=== PATIENT | female | born 1985 | race Caucasian/White ===

== ENCOUNTER → 2017-12-23 13:05 | Outpatient (CLI) | payer BC, OTHER, SELFPAY ==
[2017-09-29 13:07] VITALS: BMI 36.4
--- NOTE | 2017-12-23 13:07 | ECHOD_ITS ---
Reason For Study: NEOPLASM Procedure This was a 2D Doppler, Color Flow transthoracic echocardiogram. Technically limited exam. Pt was unable to tolerate probe due to severe pain from incision. Exam performed in department. Left Ventricle Normal LV size. Left ventricular systolic function is normal. The estimated ejection fraction is 60 %. No regional wall motion abnormalities noted. Right Ventricle Normal RV size. Normal systolic function. Atria Normal left atrium. Normal right atrium. Mitral Valve Normal mitral valve. Tricuspid Valve Normal tricuspid valve. Aortic Valve Trisinus/trileaflet aortic valve. Pulmonic Valve The pulmonic valve is not well visualized. Great Vessels Normal aortic root. The pulmonary artery is normal size. Normal inferior vena cava. Pericardium/Pleural No pericardial effusion. MMode/2D Measurements & Calculations LVIDd: 4.5 cm IVSd: 0.75 cm LA dimension: 3.5 cm LVIDs: 3.4 cm LVPWd: 0.79 cm FS: 25.3 % LAV(MOD-bp): 41.3 ml LA A4 area: 15.7 cm2 RA A4 area: 15.1 cm2 LAV(MOD-bp) Indexed: 18.9 ml/m2 LAV(MOD-sp2): 36.2 ml LAV(MOD-sp4): 44.7 ml Doppler Measurements & Calculations MV E max nash: 60.9 cm/sec PA V2 max: 86.5 cm/sec MV A max nash: 64.4 cm/sec MV E/A: 0.94 Interpretation Summary Normal LV size. Left ventricular systolic function is normal. The estimated ejection fraction is 60 %. The study was technically limited. Ordering Physician: Erica Benitez Referring Physician: KADEN ROBLES Performed By: Lucia Gallardo, BRUNO, RVT
== END ==
PROVIDERS: Family Provider Family Medicine; PCP Family Medicine; Visit Provider Nurse Practitioner Family
DX: C50.912 Malignant neoplasm of unspecified site of left female breast (principal); Z92.29 Personal history of other drug therapy
CPT/HCPCS: 93306

== ENCOUNTER → 2017-12-24 09:05 | Outpatient (CLI) | payer BC, OTHER, SELFPAY ==
[2017-09-29 13:07] VITALS: BMI 36.4
--- NOTE | 2017-12-23 14:20 | EMB_PTH ---
PATIENT: VARINDER LACEY LOC: [facility] U#:[id number] AGE/SX: 40/F ROOM: RE12/24/[address]: TRAE Aceves : 1985 BED: DIS: SPEC #: [id number] RECD: 12/23/17 18:34 STATUS: REGGIE KARLIE #: [id number] GURU: 12/23/17 14:[address]: Karly Sanchez NP DEPT: SURGICAL PATHOLOGY RECD BY: Liu Porter ENTERED: 12/24/17 11:59 SP TYPE: ENDOM BX/C MORRIS DR: Dr. Rhett Elias MD Tissues: Endometrium, NOS Procedures: Surgery Specimen Level IV HEADER OPERATION: Endometrial biopsy PRE-OP DIAGNOSIS: Abnormal uterine bleeding TISSUE SUBMITTED: Endometrial lining MICROSCOPIC DIAGNOSIS Endometrial biopsy: Proliferative endometrium with focal glandular and stromal breakdown. SJ:sharon 12/27/17 MICROSCOPIC DESCRIPTION Slides are reviewed. GROSS DESCRIPTION Received is one container labeled with the patient's name and not further designated. The specimen consists of multiple minute fragments of hernandez tissue that in aggregate measure 2.5 x 2 x <0.1 cm. The specimen is totally submitted in one cassette. / AM:sharon 12/24/17 TC:5 CPT: 84440
== END ==
PROVIDERS: Family Provider Family Medicine; PCP Family Medicine; Visit Provider Nurse Practitioner Women's Health
DX: N93.9 Abnormal uterine and vaginal bleeding, unspecified (principal)
CPT/HCPCS: 88305

== ENCOUNTER 2018-01-03 09:43 | Inpatient (IN) | payer BC, OTHER, SELFPAY ==
[2017-09-29 13:07] VITALS: BMI 36.4
[2018-01-03 10:03] VITALS: BMI 35.6
[2018-01-03 10:28] VITALS: BP 133/97; PULSE 95; RESP 16; TEMP 36.9; O2SAT 99
--- NOTE | 2018-01-03 10:36 | MRI_ITS ---
STUDY: BILATERAL BREAST MR WITHOUT AND WITH CONTRAST REASON FOR EXAM: Female, 32 years old. History of left breast cancer with seroma after lumpectomy. History of radiation therapy and chemotherapy. TECHNIQUE: Multi-sequence multi-echo imaging of both breasts was performed with a dedicated breast coil. T1-weighted and T2-weighted images were performed before the administration of contrast. T1-weighted images were also performed after the administration of 10 mL of Gadavist contrast intravenously without complications. COMPARISON: Either breast MRI dated July 13, 2017 FINDINGS: RIGHT BREAST: The breast tissue is fatty with mild background enhancement. The seroma cavity has resolved. There is minimal skin thickening and deformity at the seroma site. There are no abnormal enhancing masses or areas of non-mass enhancement in the right breast. LEFT BREAST: The breast tissue is fatty with minimal background enhancement. There are no abnormal enhancing masses or areas of non-mass enhancement in the left breast. There are no enlarged or abnormal lymph nodes. There is no abnormality in the visualized regions of the chest or liver. MRI/Breast w/o and/or W Cont Bilat IMPRESSION: Minimal skin thickening and deformity in the upper outer quadrant of the left breast at the site of the prior surgery/seroma. No other significant abnormality is identified. CATEGORY: BIRADS Category 2: Benign. A letter regarding these results will be sent to the patient by the facility within 30 days. Electronically Signed: Michael Humphries MD at 10:28 EDT , Service support ,
[2018-01-03 11:27] LABS: Erythrocyte Sedimentation Rate < 1 mm/hr (0-20); Hematocrit 30.6 % (37-47); Hemoglobin 10.3 g/dl (12.0-15.0); Mean Corp Hgb Conc 33.7 g/gl (32-36); Mean Corpuscular Hgb 29.3 pg (27.0-32.0); Mean Corpuscular Volume 86.9 fL (81-99); Platelet Count 115 K/mm3 (150-450); RBC Distribution Width CV 12.8 % (11.6-14.6); RBC Distribution Width SD 41.2 fl (35.1-43.9); Red Blood Count 3.52 M/mm3 (4.2-5.4); Scan Indicated on CBC? Y/N NO; White Blood Count 4.8 K/mm3 (4.4-11.0)
[2018-01-03 11:51] LABS: AST(SGOT) 29 U/L (15-37); Alanine Aminotransfer ALT/SGPT 52 U/L (13-56); Albumin, Serum 3.2 g/dL (3.2-5.0); Alkaline Phosphatase 78 U/L (45-117); Anion Gap 8 (5-15); BUN 15 mg/dL (7-18); BUN/Creat Ratio 16.3 RATIO (10-20); CRP 4.19 mg/L (0.0-3.0); Calcium,Total 8.6 mg/dL (8.5-10.1); Chloride 105 mmol/L (98-107); Creatinine, Serum 0.92 mg/dL (0.55-1.02); EST Glomerular Filtration Rate 75 mL/min (>60); Est Glom Filt Rate - Afr Amer 90 mL/min (>60); Estimated Creatinine Clearance 87.74 ml/min; Globulin 3.1 g/dL (2.2-4.2); Glucose 87 mg/dL (74-106); Potassium 3.8 mmol/L (3.5-5.1); Prealbumin 24.8 mg/dL (20.0-40.0); Protein, Total 6.3 g/dL (6.4-8.2); Sodium Level 141 mmol/L (136-145)
[2018-01-03] MEDS: Lactated Ringers 1,000 ML 60 ML IV (12:31)
--- NOTE | 2018-01-03 15:12 | CHAPLAIN ---
Type of Pastoral Visit _x__ Initial Visit ___ Follow-up Visit ___ On-call Visit ___ General Patient Visit ___ Spiritual Assessment ___ Family Conference ___ Bereavement ___ Rapid Response ___ Code Blue ___ Other (describe below) Pastoral Care Referral From _x__ Patient ___ Family ___ Nurse ___ Physician ___ Inspector Elevators ___ Center Aisle Cashier ___ Other (describe below) Sacrament/Intervention _x__ Active listening ___ Anointing ___ Mandaen ___ Bereavement ___ Communion _x__ Amy exploration ___ _x__ Life review _x__ Prayer ___ Reconciliation ___ Sacrament of Sick _x__ Supportive presence ___ Wedding ___ Other (describe below) Pastoral Comments patient is concerned about being a good mother and available to her children in her time of sickness; pt admits to good and bad days in dealing with breast cancer; pt is making gifts for the cancer team; pt has a spiritual focus but is unsure of asking God about the big things like (healing) when God has so many people to care for; pt welcomed the prayer and supportive encounter
[2018-01-03 17:00] VITALS: BP 141/97; PULSE 98; RESP 18; TEMP 36.8; O2SAT 99
[2018-01-03] MEDS: Gabapentin 300 MG Capsule PO (17:29)
[2018-01-03] MEDS: oxyCODONE 5 MG Tablet 10 MG PO ×2 (17:47→22:13)
--- NOTE | 2018-01-03 20:34 | HP.PCM_ITS ---
History and Physical Date of Admission: 01/03/18 HISTORY OF PRESENT ILLNESS 32 year old woman presents with increasing pain in her left lateral breast after having undergone radiation therapy for breast cancer. She was first diagnosed with left breast cancer and underwent a lumpectomy and sentinel lymph node biopsy in 04/03. Pathology showed poorly differentiated infiltrating ductal carcinoma which was ER negative, [place] weakly positive, and HER2/dilia positive. She was started on IV chemotherapy with difficulties with pancytopenia and thrombocytopenia. It was noted that she had difficulty with the lumpectomy incision since the surgery. She developed a post-lumpectomy seroma ulcer that necessitated surgical intervention on 08/05/17 where she underwent surgical preparation left lateral breast with incision and drainage and excision nonhealing post- lumpectomy seroma ulcer with 9 cm complex secondary wound closure. It healed without issues initially. Operative culture showed Anaerobic cocci and she was treated with antibiotics. The incision has remained healed, but she has developed increasing pain in the area of the lateral incision and extending laterally onto the chest wall and axillary area. The symptomatology has worsened since the radiation was done. She states she has trouble taking care of her children because of the pain. She tries to take very little pain medication because she wants to be alert with her children. However it has started to affect her ability to get sleep at night secondary to the pain. I had discussed with her that she has increased edema from the radiation therapy which is aggravating the scar tissue on her chest wall from her previous seroma surgery. Because of the worsening pain, I am concerned about a possible infection in the area of the previous seroma surgery. She is being admitted today for IV antibiotics and will obtain an MRI to look for any issues that may need to be addressed surgically. She denies any fever. She had a CT Chest scheduled for tomorrow as an outpatient. Will cancel that she is being admitted and we are obtaining an MRI today. 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 Pneumonia STEVE Chronic back pain Nonhealing post-lumpectomy seroma ulcer left lateral breast Chemotherapy induced neutropenia PAST SURGICAL HISTORY: [place] teeth 2002 all 4 Planter Wart 2008 Partial Mastectomy 04/06/17 - getting chemotherapy and will follow with radiation therapy Port Placement 05/03 Hospital-Febrile Neutropenia discharged 07/14/17 Occasional psychiatric hospitalized [id number] surgical preparation left lateral breast with incision and drainage and excision nonhealing post-lumpectomy seroma ulcer with 9 cm complex secondary wound closure - 08/05/17 FAMILY HISTORY: Mother (carroll.) - Has Family History of Depression Mother (carroll.) - Has Family History of Thyroid Disorder Mother (carroll.) - Has Family History of Psychiatric Care Father (carroll.) - Has Family History of Hypertension Father (carroll.) - Has Family History of High Cholesterol Aunt - Has Family History of Seizures PGM - Has Family History of Other Cancer PGF - Has Family History of Diabetes PGF - Has Family History of Heart Disease PGM - Has Family History of Colon Cancer SOCIAL HISTORY: Drug Use - no Patient is a former smoker. Patient does not drink alcohol. REVIEW OF SYSTEMS General - Denies fever. Has some weight loss and fatigue. Eyes -Denies: Pain HEENT - Denies: Nasal Congestion, Sore Throat Cardiovascular - Denies Chest Pain. Has fatigue. Denies shortness of breath with exertion. Respiratory - patient is a former smoker.. Denies: Cough, Shortness of Breath Gastrointestinal - Has Constipation, Diarrhea. Denies: Nausea, Vomiting Genitourinary - Denies: Frequency, Hematuria Musculoskeletal - Reports: Back Pain, - - has left lateral rib pain. Denies: Hand Pain, Leg Pain, Muscle pain, Neck Pain Skin - Has lumpectomy scar left lateral breast with pain. Pain also radiates laterally onto left lateral rib pain and axillary rib pain. Neuro - Has Headaches Psych - Has Anxiety, Depression Endocrine - Denies Polydipsia, Polyuria Hematologic - Denies Easy Bruising, Hx of blood clot PHYSICAL EXAMINATION General - Alert and oriented. Her bra size is D-DD. HEENT - PERRLA, EOMI Neck - Supple and nontender. No cervical adenopathy. Chest wall - There is tenderness to palpation in the left lateral chest wall over the ribs and extending onto the axillary area. No fluctuance or purulent drainage. Breasts - There is a left lateral breast scar from lumpectomy in 04/03. There is an indentation deformity. Very tender to palpation. The left breast is tender to palpation mostly laterally. No redness. Increased swelling and edema especially around the nipple areolar complex area. No fluctuance. The right breast is a little larger. Slight Stage II ptosis. Lungs - Clear to auscultation Heart - Regular rate, Regular Rhythm Abdomen - Soft, Non-Distended Extremities - No clubbing, No cyanosis, No edema, Peripheral Pulses Normal Lymphatic - no axillary adenopathy. Neuro - Cranial nerves II-XII grossly intact Psych - Normal Affect, Appropriate ASSESSMENT 1. Left breast cancer. 2. s/p lumpectomy with chemotherapy and radiation therapy. 3. Post-lumpectomy painful indentation scar contour deformity left lateral breast. 4. Late effect radiation left breast. 5. Disproportion reconstructed left breast. 6. Post-lumpectomy infected seroma left lateral breast. Begin IV antibiotics with Unasyn. Will check labs for admission (CBC, CMP, Prealbumin, ESR, CRP). She was scheduled for a CT scan Chest for tomorrow as an outpatient. Since she is being admitted, will cancel that outpatient CT. Will obtain an MRI today. Based on the findings and based on her clinical response to the IV antibiotics will determine if operative intervention is needed. The plan would be to revise the left breast reconstruction with excision painful infected radiation lumpectomy scar contour deformity with possible completion mastectomy. Since it was a very large cavity that was debrided back in 08/03, it is possible that most of the breast is being debrided in which case a completion mastectomy would be done. With her radiation treatments, the left breast will always be at risk for worsening of her radiation fibrosis. Because of her radiation damage, will have her evaluated at Wound Center after discharge for HBO treatments since it will help to soften the surrounding tissue and make it less likely to have healing issues in the future. If I decide to leave the remaining breast tissue because it is soft and viable, I would leave the wound open and pack with the VAC. She would followup at the Wound Center for wound care as well for HBO treatments. If a completion mastectomy is done, I may try to close the wound but I may leave it open as well initially with the plan to come back for secondary wound closure if healing is difficult from the radiation therapy. Her breasts are large enough before the breast cancer, that she was a candidate for breast reduction. She states she may need to proceed with a right breast reduction to help with the back pain that is exacerbated with such breast asymmetry. The reduction would lessen the asymmetry temporarily. If a completion mastectomy is done, and the patient wishes to proceed with continued breast reconstruction on the left, then it would be necessary to bring in non- radiated tissue such as the latissimus dorsi flap or the abdominal TRAM flap for reconstruction. After healing has occurred, small cohesive gel implants can be placed if needed. If surgery is performed, the patient was informed of the risks and complications of the procedure including alternatives to surgery. These were discussed with her personally. She voices understanding and wishes to proceed.
[2018-01-03 21:54] VITALS: BP 155/107; PULSE 99; RESP 18; TEMP 37; O2SAT 100
[2018-01-03] MEDS: Pentoxifylline 400 MG Tablet PO (22:05)
[2018-01-03] MEDS: Tamoxifen 10 MG Tablet 20 MG PO (22:06)
--- NOTE | 2018-01-03 22:12 | NURSING ---
DURAGESIC PATCH FLUSHED DOWN TOILET, WITNESSED BY VENEER JOINTERJAN BABB.
[2018-01-03] MEDS: fentaNYL 25 MCG Patch TRANSDERM. (22:13)
[2018-01-03] MEDS: diazePAM 5 MG Tablet PO (22:13)
[2018-01-03 22:18] VITALS: BMI 35.6
[2018-01-03 23:04] LABS: Internal QC Validated? YES +Cl - CLEAR BKGD
[2018-01-03 23:05] LABS: Pregnancy, Urine Negative Negative
[2018-01-03 23:55] LABS: Thyroid Stim Hormone (TSH) 9.53 uIU/mL (0.358-3.74)
[2018-01-04] VITALS (11 sets, daily range): BP systolic 119–145; BP diastolic 73–100; PULSE 90–112; RESP 16–18; TEMP 36.6–37.4; O2SAT 95–100
--- NOTE | 2018-01-04 05:55 | EKG12_ITS ---
Test Reason : AM EKG Blood Pressure : / mmHG Vent. Rate : 090 BPM Atrial Rate : 090 BPM P-R Int : 136 ms QRS Dur : 080 ms QT Int : 390 ms P-R-T Axes : 044 037 027 degrees QTc Int : 477 ms Normal sinus rhythm Normal ECG When compared with ECG of 10-JUL-2017 21:03, Vent. rate has decreased BY 51 BPM Confirmed by SEA TREVIZO, GEGE ([id number]), electronic news gathering editor BUZZ GALARZA ([id number]) on 01/13/2018 4:00:40 PM Referred By: Jose Robertson Confirmed By:GEGE OSEI MD
--- NOTE | 2018-01-04 07:30 | BREAST_PTH ---
PATIENT: VARINDER LACEY LOC: [facility] U#:[id number] AGE/SX: 32/F ROOM: [facility] [place] RE01/03/[address]: Dr. Jose Robertson MD : 1985 BED: 1 DIS: 01/06/2018 SPEC #: [id number] RECD: 01/05/18 08:22 STATUS: REGGIE REEnrike #: [id number] GURU: 01/04/18 07:[address]: Jose Robertson DEPT: SURGICAL PATHOLOGY RECD BY: Chad Lopes ENTERED: 01/05/18 11:19 SP TYPE: BREAST OTHR DR: Dr. Rhett Elias MD Tissues: Left breast, NOS Procedures: Surgery Specimen Level V HEADER OPERATION: Revision left breast reconstruction with excision painful indentation scar PRE-OP DIAGNOSIS: Post lumpectomy painful indentation scar contour deformity left lateral breast TISSUE SUBMITTED: Left breast MICROSCOPIC DIAGNOSIS Left breast, mastectomy: Focal chronic inflammation, fibrosis and foreign body giant cell reaction, consistent with previous biopsy site. Skin, areola and nipple, no pathologic diagnosis. Negative for malignancy in the sections examined. SJ:sharon 01/06/18 MICROSCOPIC DESCRIPTION Slides are reviewed. GROSS DESCRIPTION Received in fixative is one container labeled with the patient's name and designated left breast. The specimen consists of a left breast mastectomy measuring 20 x 18 x 6 cm and weighing 904 gm. The anterior surface consists of an irregular fragment of pink-hernandez skin measuring 11 x 9 cm and consisting of an areola and nipple along one edge. The nipple measures 1.5 x 1.5 x 1.2 cm. Present free in the container is an irregular fragment of hernandez-yellow fibrofatty tissue measuring 7.8 x 7 x 4 cm and weighing 77.6 gm. This fragment contains a skin fragment measuring 5 x 1.5 cm with a healing scar. Serial sections of this smaller fragment reveal yellow to white cut surfaces and a cyst measuring 1.2 cm in greatest dimension. No orientation is provided. [employer] sections from this fragment of tissue are submitted in cassettes 1-4. The mastectomy specimen is not oriented. The noncutaneous surgical surfaces are inked in black ink. Serial sections reveal yellow to white cut surfaces. No distinct mass lesion, cyst or changes of previous biopsy are seen. Dense white-pink tissue is noted close to one peripheral margin. [employer] sections from the mastectomy fragment are submitted in cassettes 5-12 as follows: 5 ? nipple and areola, 6-10 ? indurated tissue at periphery of specimen, 11 & 12 ? wholesale representative sections from mid portion of specimen. / AM:sharon 01/05/18 TC:5 CPT: 21478
[2018-01-04 07:52] LABS: Absolute Neutrophil Count 2.6 X10^3/uL (2.0-7.7); Basophil# 0.01 X10^3/uL; Basophil% 0.2 % (0-1); Eosinophil# 0.12 X10^3/uL; Hemoglobin 10.4 g/dl (12.0-15.0); Lymphocyte % 24.7 % (19-41); Mean Corp Hgb Conc 33.5 g/gl (32-36); Mean Corpuscular Hgb 29.4 pg (27.0-32.0); Mean Corpuscular Volume 87.6 fL (81-99); Mean Platelet Vol. 8.1 fl (6.2-12.0); Monocyte# 0.28 X10^3/uL; Monocyte% 6.9 % (0-10); Neutrophil # 2.63 X10^3/uL (2.7-7.7); Platelet Count 110 K/mm3 (150-450); RBC Distribution Width CV 12.8 % (11.6-14.6); RBC Distribution Width SD 41.1 fl (35.1-43.9); Red Blood Count 3.54 M/mm3 (4.2-5.4); White Blood Count 4.1 K/mm3 (4.4-11.0)
[2018-01-04 07:53] LABS: POSITIVE COUNT NO; POSITIVE DIFFERENTIAL NO; POSITIVE MORPHOLOGY NO
[2018-01-04 08:03] LABS: Partial Thromboplast Time 27.3 Seconds (24.1-36.2)
[2018-01-04] MEDS: Gabapentin 300 MG Capsule PO ×2 (09:08→21:09)
[2018-01-04] MEDS: Pentoxifylline 400 MG Tablet PO ×2 (09:08→21:09)
[2018-01-04] MEDS: Docusate Sodium 100 MG Capsule PO ×2 (09:08→21:09)
[2018-01-04] MEDS: Lactated Ringers 1,000 ML 60 ML IV (10:03)
--- NOTE | 2018-01-04 10:21 | CASEMGMT ---
See RN JOVI Assessment Link. -Pt having difficulty caring for children due to pain. Possible need for further surgery, wound clinic appointments and wound vac. Ongoing RN JOVI dc planning. Mirella CABRALN RN ACM
[2018-01-04] MEDS: Ondansetron 4 MG/2 ML Vial IV (11:51)
--- NOTE | 2018-01-04 14:12 | NURSING ---
called report to Sharmaine in [facility] at this time.
--- NOTE | 2018-01-04 16:38 | PCM.IMDPSTOP ---
Immediate Post-Op Note Date of Procedure: 01/04/18 Primary Surgeon/Physician: Jose Robertson trade facilitator: Jesus Olivera. Pre-Operative Diagnosis: 1. Left breast cancer. 2. s/p lumpectomy with chemotherapy and radiation therapy. 3. Post-lumpectomy painful indentation scar contour deformity left lateral breast. 4. Late effect radiation left breast. 5. Disproportion reconstructed left breast. 6. Post-lumpectomy infected seroma left lateral breast. Post-Operative Diagnosis: Same. Surgery/Procedure Performed:: Revision left breast reconstruction with excision painful infected lateral radiation lumpectomy scar contour deformity with completion mastectomy. Description of Surgical Findings:: 32 year old woman presents with increasing pain in her left lateral breast after having undergone radiation therapy for breast cancer. She was first diagnosed with left breast cancer and underwent a lumpectomy and sentinel lymph node biopsy in 04/03. Pathology showed poorly differentiated infiltrating ductal carcinoma which was ER negative, [place] weakly positive, and HER2/dilia positive. She was started on IV chemotherapy with difficulties with pancytopenia and thrombocytopenia. It was noted that she had difficulty with the lumpectomy incision since the surgery. She developed a post-lumpectomy seroma ulcer that necessitated surgical intervention on 08/05/17 where she underwent surgical preparation left lateral breast with incision and drainage and excision nonhealing post-lumpectomy seroma ulcer with 9 cm complex secondary wound closure. It healed without issues initially. Operative culture showed Anaerobic cocci and she was treated with antibiotics. The incision has remained healed, but she has developed increasing pain in the area of the lateral incision and extending laterally onto the chest wall and axillary area. The symptomatology has worsened since the radiation was done. She states she has trouble taking care of her children because of the pain. She tries to take very little pain medication because she wants to be alert with her children. However it has started to affect her ability to get sleep at night secondary to the pain. I had discussed with her that she has increased edema from the radiation therapy which is aggravating the scar tissue on her chest wall from her previous seroma surgery. Because of the worsening pain, I am concerned about a possible infection in the area of the previous seroma surgery. She was admitted for IV antibiotics and an MRI was obtained which showed no abnormal enhancing masses or areas of non-mass enhancement in the left breast and no enlarged or abnormal lymph nodes. Operative intervention was recommended to debride the seroma cavity scar tissue and associated radiation fibrosis that is present that is aggravating her painful symptomatology. Depending on the size of the resultant cavity after the revision excision, if I feel that there will be healing issues or that the remaining breast tissue will start to develop firmness from the radiation effects, then I would proceed with completion mastectomy. This would be followed by post-discharge HBO treatments to help the healing process in preparation for further breast reconstruction surgery. Today the patient underwent revision left breast reconstruction with excision painful infected lateral radiation lumpectomy scar contour deformity with completion mastectomy. Size of the defect left breast - 10 x 22 x 6 cm. Estimated Blood Loss: 200 ml. Specimen's removed: Left breast tissue to Pathology and Microbiology. Drains: None. Type of Anesthesia:: General - Admit VTE Documentation VTE Present on Admission: No VTE Mechan Device Prophylaxis: SCD's VTE Pharm Prophylaxis ordered?: Yes
[2018-01-04] MEDS: Tamoxifen 10 MG Tablet 20 MG PO (21:10)
[2018-01-04] MEDS: oxyCODONE 5 MG Tablet 15 MG PO (21:11)
[2018-01-05 04:26] VITALS: BP 107/67; PULSE 85; RESP 16; TEMP 36.7; O2SAT 97
[2018-01-05] MEDS: 0.9% NaCl Peripheral Flush Adult/Peds IV ×2 (05:45→20:41)
[2018-01-05 06:00] LABS: Hematocrit 27.6 % (37-47); Hemoglobin 9.2 g/dl (12.0-15.0); Mean Corp Hgb Conc 33.3 g/gl (32-36); Mean Corpuscular Hgb 29.8 pg (27.0-32.0); Mean Corpuscular Volume 89.3 fL (81-99); Mean Platelet Vol. 8.1 fl (6.2-12.0); Platelet Count 147 K/mm3 (150-450); RBC Distribution Width CV 12.5 % (11.6-14.6); RBC Distribution Width SD 38.9 fl (35.1-43.9); Red Blood Count 3.09 M/mm3 (4.2-5.4)
[2018-01-05 06:05] LABS: Scan Indicated on CBC? Y/N NO
[2018-01-05 06:28] LABS: Anion Gap 10 (5-15); BUN 13 mg/dL (7-18); BUN/Creat Ratio 16.7 RATIO (10-20); Chloride 104 mmol/L (98-107); Creatinine, Serum 0.78 mg/dL (0.55-1.02); EST Glomerular Filtration Rate 90 mL/min (>60); Est Glom Filt Rate - Afr Amer 109 mL/min (>60); Estimated Creatinine Clearance 103.48 ml/min; Glucose 105 mg/dL (74-106); Potassium 3.8 mmol/L (3.5-5.1); Sodium Level 139 mmol/L (136-145)
[2018-01-05] MEDS: diazePAM 5 MG Tablet PO ×2 (07:42→23:55)
[2018-01-05 07:49] VITALS: BP 119/76; PULSE 87; RESP 18; TEMP 36.4; O2SAT 96
--- NOTE | 2018-01-05 09:30 | CASEMGMT ---
Pt to have wound vac placed today. will need home health ordered, pt states no preference. Per [employer] website, [facility] is [facility]. Referral made, they are able to take pt with start of care on Wednesday. Pt states she will have family/friends help @ home and transportation to wound center if appt is needed. [facility] PH: [phone] FX: [phone]
[2018-01-05] MEDS: Gabapentin 300 MG Capsule PO ×3 (09:35→17:31)
[2018-01-05] MEDS: Pentoxifylline 400 MG Tablet PO ×2 (09:35→20:40)
[2018-01-05] MEDS: Docusate Sodium 100 MG Capsule PO ×2 (09:35→20:40)
[2018-01-05] MEDS: oxyCODONE 5 MG Tablet 15 MG PO (09:40)
[2018-01-05] MEDS: Lactated Ringers 1,000 ML 60 ML IV (11:08)
--- NOTE | 2018-01-05 12:08 | NURSING ---
wound photo: left breast
--- NOTE | 2018-01-05 12:10 | CASEMGMT ---
SW spoke w/pt in room in regard to diagnosis and how she is managing. Pt states she is managing well, has supportive and father. Pt has three small children, ages 2, 3, and 4. SW spoke w/pt about support for all that has happened. Pt states she did go to [facility] once, cancelled the 2nd appointment due to school being cancelled for her children, and has not made a second appointment. Pt expressed frustration with their financial situation, stating they cannot afford things like gymnastics or the [employer] for their children. Pt states the two older children were in school but were not liking it, so they are home now and much happier. Pt states she is not certain if this is due to her health or that they just genuinely did not like school, but again reports they are much happier being at home. SW spoke w/pt about play therapy for the children if they were ever to need it. Pt states her one child is going to start music therapy, and the oldest is going to start piano lessons. Pt states she did not know of any place around here that does play therapy. SW explained can find out for her and let her know. SW called [facility] and [facility], they both do play therapy. SW let pt know this, and gave her the contact information for both of these agencies along with other agencies in the area. Pt thanked DIANA for the information. DIANA remains available should any additional discharge needs arise. GEN Tinsley, MECHANICAL EQUIPMENT TEST ENGINEER
[2018-01-05 13:50] VITALS: BP 124/69; PULSE 105; RESP 18; TEMP 36.8; O2SAT 93
[2018-01-05] MEDS: oxyCODONE 5 MG Tablet PO (17:37)
[2018-01-05 20:15] VITALS: BP 113/67; PULSE 110; RESP 18; TEMP 36.7; O2SAT 93
[2018-01-05] MEDS: Tamoxifen 10 MG Tablet 20 MG PO (20:40)
--- NOTE | 2018-01-05 21:53 | OP.PCM_ITS ---
Report of Operation Date of Procedure: 01/04/18 Pre-Operative Diagnosis: 1. Left breast cancer. 2. s/p lumpectomy with chemotherapy and radiation therapy. 3. Post-lumpectomy painful indentation scar contour deformity left lateral breast. 4. Late effect radiation left breast. 5. Disproportion reconstructed left breast. 6. Post-lumpectomy infected seroma left lateral breast. Post-Operative Diagnosis: Same. Surgery/Procedure Performed:: Revision left breast reconstruction with excision painful infected lateral radiation lumpectomy scar contour deformity with completion mastectomy. Description of Surgical Findings:: 32 year old woman presents with increasing pain in her left lateral breast after having undergone radiation therapy for breast cancer. She was first diagnosed with left breast cancer and underwent a lumpectomy and sentinel lymph node biopsy in 04/03. Pathology showed poorly differentiated infiltrating ductal carcinoma which was ER negative, RI weakly positive, and HER2/dilia positive. She was started on IV chemotherapy with difficulties with pancytopenia and thrombocytopenia. It was noted that she had difficulty with the lumpectomy incision since the surgery. She developed a post-lumpectomy seroma ulcer that necessitated surgical intervention on 08/05/17 where she underwent surgical preparation left lateral breast with incision and drainage and excision nonhealing post- lumpectomy seroma ulcer with 9 cm complex secondary wound closure. It healed without issues initially. Operative culture showed Anaerobic cocci and she was treated with antibiotics. The incision has remained healed, but she has developed increasing pain in the area of the lateral incision and extending laterally onto the chest wall and axillary area. The symptomatology has worsened since the radiation was done. She states she has trouble taking care of her children because of the pain. She tries to take very little pain medication because she wants to be alert with her children. However it has started to affect her ability to get sleep at night secondary to the pain. I had discussed with her that she has increased edema from the radiation therapy which is aggravating the scar tissue on her chest wall from her previous seroma surgery. Because of the worsening pain, I am concerned about a possible infection in the area of the previous seroma surgery. She was admitted for IV antibiotics and an MRI was obtained which showed no abnormal enhancing masses or areas of non-mass enhancement in the left breast and no enlarged or abnormal lymph nodes. Operative intervention was recommended to debride the seroma cavity scar tissue and associated radiation fibrosis that is present that is aggravating her painful symptomatology. Depending on the size of the resultant cavity after the revision excision, if I feel that there will be healing issues or that the remaining breast tissue will start to develop firmness from the radiation effects, then I would proceed with completion mastectomy. This would be followed by post-discharge HBO treatments to help the healing process in preparation for further breast reconstruction surgery. The patient was informed of the risks and complications of the procedure including alternatives to surgery. These were discussed with her personally. She voices understanding and wishes to proceed. Size of the defect left breast - 10 x 22 x 6 cm. windows vmware administrator: Jesus Olivera. Type of Anesthesia:: General Specimen's removed: Left breast tissue to Pathology and Microbiology. Drains: None. Estimated Blood Loss (mL): 200 ml. Description of Procedure: Patient was taken to OR in supine position and placed under general anesthesia. Her left breast was prepped and draped in the usual fashion. SCD's were placed for DVT prophylaxis. Perioperative antibiotics were given intravenously. Using xylocaine with epinephrine, her lateral lumpectomy scar was infiltrated. After waiting 5 minutes for the anesthetic to take effect, I excised this lumpectomy scar down into the breast tissue until the chest wall muscle was seen. There was dense fibrotic scar tissue present indicative of chronic scarring from the previous infected seroma excision and from the fibrosis developing from the radiation therapy. The area of painful palpation laterally in the axillary area was marked out preoperatively and was found to be located in the area of the dense chronic scarring on the chest wall musculature. This was excised as well until soft muscle remained. Hopefully this dense scarring was the reason for her pain in this area. After the first excision of this infected seroma cavity in 08/03, there was a large cavity that remained. Today after further excision of this infected seroma cavity scarring and radiation fibrosis, the cavity was much larger. It extended along the chest wall medial to the nipple area. It was felt that this separation of the breast tissue off the chest wall would compromise the blood supply to the breast tissue. There is also blood supply coming from the skin, but combined with the radiation therapy, I felt there would be compromised vascularity which would lead to increased and progressive firmness and pain in the remaining breast tissue. Therefore I felt that by leaving the breast tissue, she would have further problems that would lead to more surgeries. She had expressed to me that she wanted the least amount of surgeries possible even if it meant a completion mastectomy. Therefore I decided to proceed with the completion mastectomy. Initially I was going to do a vertical incision around the nipple as a mastopexy type of mastectomy incision. However with the lateral longitudinal scar already present, I would not be able to close both incisions if I proceeded with the vertical incision for the mastectomy. Therefore I marked out a horizontal incision just around the nipple. I wanted to minimize scarring on the medial aspect of the breast. This horizontal incision then encompassed the longitudinal incision laterally. I dissected down to Scar's fascia between the subcutaneous tissue and the breast tissue. I elevated breast skin flaps down to the chest wall muscle superiorly to the clavicle and medially to the sternum and inferiorly to the inframammary fold and laterally to the anterior axillary line. The breast tissue was then removed and sent to Pathology for analysis to rule out carcinoma. The initial breast tissue that was removed that encompassed the infected seroma cavity scarring was sent to Microbiology for culture. The wound was irrigated with saline. Hemostasis was obtained with electrocautery. I decided not to close the mastectomy wound because of the recent radiation therapy. I am concerned that closing the wound would increase the risk of seroma and thus wound healing problems that would lead to more surgery. By leaving the wound open, I can place the VAC tomorrow. The VAC will stabilize the wound in preparation for post-discharge HBO treatments and eventual further breast reconstruction surgery with the placement of non-radiated tissue into the left breast defect. The size of the mastectomy wound defect is 10 x 22 x 6 cm. Prior to packing the wound, I sprayed Pola absorbable hemostat into the wound. I then packed the wound by first placing Mepitel nonadherent dressing into the wound followed by Kerlix gauze and Betadine followed by dry Kerlix gauze and ABD pads. A chest wall binder was then applied. Patient tolerated the procedure well and was sent to PACU in satisfactory condition. She will be sent upstairs for continued postop care. The VAC will be placed tomorrow. A positive operative culture may necessitate antibiotic modification. If mcfp IV antibiotics are needed, then a PICC line will be placed prior to discharge. At discharge she will sent home on antibiotics and pain medication. At discharge she will followup at [facility] for evaluation for HBO treatments. Grafts/Implants Used: None. - Complications None. - Admit VTE Documentation VTE Present on Admission: No VTE Mechan Device Prophylaxis: SCD's VTE Pharm Prophylaxis ordered?: Yes Code Visit Surgery Charges CPT - 55482 ICD-10 - C50.912, Z90.12, N65.0, N65.1, N64.4, T66.xxxS , T88.8xxS
--- NOTE | 2018-01-05 21:57 | PCM.PN.SRG ---
Subjective: Postop #1 Patient complained of wound pain. Increased the Demerol with some relief. VAC applied today with pain. - Physical Exam General: Alert, Oriented x3 HEENT: PERRLA, EOMI Neck: Supple Lungs: Clear to auscultation Cardiovascular: Regular rate, Regular Rhythm Abdomen: Soft, Non-Distended Skin: Ulcer/ Wound - left breast wound stable with no bleeding. VAC applied today with some pain. Neurological: Cranial nerves II-XII grossly intact Psych/Mental Status: Normal Affect, Appropriate Vital Signs Temp Pulse Resp BP Pulse Ox 98.1 F 110 H 18 113/67 93 01/05/18 20:15 01/05/18 20:15 01/05/18 20:15 01/05/18 20:15 01/05/18 20:15 Oxygen Flow Rate (L/min) 1 Oxygen Delivery Method Room Air Weight: 234 lb 2.095 oz Body Mass Index (BMI) 35.6 Finger Stick Blood Glucose 105 Intake and Output for Last 24 Hours 01/03/18 01/04/18 01/05/18 23:59 23:59 23:59 Intake Total 1594 / 1594 2699 / 2699 2405 / 2405 Output Total 400 / 400 1000 / 1000 Balance 1194 / 1194 1699 / 1699 2405 / 2405 Microbiology Past 72 Hours 01/04/18 Unknown Gram Stain - Final Tissue - Breast Wound Culture - Preliminary No growth-Final to follow Pathology - pending. Laboratory Tests Past 24 Hrs 01/05/18 01/05/18 05:30 05:30 WBC 9.0 RBC 3.09 L Hgb 9.2 L Hct 27.6 L MCV 89.3 MCH 29.8 MCHC 33.3 RDW 12.5 RDW Differential 38.9 Plt Count 147 L MPV 8.1 Sodium 139 Potassium 3.8 Chloride 104 Carbon Dioxide 25.0 Anion Gap 10 BUN 13 Creatinine 0.78 Estim Creat Clear Calc 103.48 Est GFR (MDRD) Af Amer 109 Est GFR (MDRD) Non-Af 90 BUN/Creatinine Ratio 16.7 Glucose 105 Calcium 8.0 L Medical Necessity - Tobacco Use Smoking Status: Former smoker Assessment/Plan 1. Left breast cancer. 2. s/p lumpectomy with chemotherapy and radiation therapy. 3. Post-lumpectomy painful indentation scar contour deformity left lateral breast. 4. Late effect radiation left breast. 5. Disproportion reconstructed left breast. 6. Post-lumpectomy infected seroma left lateral breast. 7. s/p revision left breast reconstruction with excision painful infected lateral radiation lumpectomy scar contour deformity with completion mastectomy. VAC applied today with some pain. Needed IV analgesia for the VAC placement. Awaiting VAC approval. Continue IV Unasyn. Operative culture is pending. Pathology is pending. Prealbumin is 24.8. Encourage nutritional supplementation with protein to help the healing process. Will wean to po analgesia at discharge. Followup next week at the [facility] for evaluation for HBO treatments.
[2018-01-06 02:15] VITALS: BP 112/66; PULSE 96; RESP 16; TEMP 37.1; O2SAT 97
[2018-01-06] MEDS: oxyCODONE 5 MG Tablet PO ×3 (02:33→15:17)
[2018-01-06] MEDS: Lactated Ringers 1,000 ML 60 ML IV (05:46)
[2018-01-06] MEDS: diazePAM 5 MG Tablet PO ×2 (06:15→18:44)
[2018-01-06 08:11] VITALS: BP 109/66; PULSE 94; RESP 16; TEMP 36.7; O2SAT 93
[2018-01-06] MEDS: Gabapentin 300 MG Capsule PO ×3 (08:17→17:13)
[2018-01-06 09:20] VITALS: PULSE 104
[2018-01-06] MEDS: Docusate Sodium 100 MG Capsule PO (09:29)
[2018-01-06] MEDS: Pentoxifylline 400 MG Tablet PO (09:29)
[2018-01-06] MEDS: 0.9% NaCl Peripheral Flush Adult/Peds IV ×3 (10:52→20:51)
[2018-01-06] MEDS: Ondansetron 4 MG/2 ML Vial IV (10:52)
[2018-01-06 14:15] VITALS: BP 118/72; PULSE 101; RESP 18; TEMP 37.2; O2SAT 95
--- NOTE | 2018-01-06 15:21 | NURSING ---
Pt switched over to the home VAC. seal intact at 150mmHg low continuous suction. Pt denies questions. Home health will begin dressing changes on Wednesday. Pt is aware.
--- NOTE | 2018-01-06 15:50 | RAD_ITS ---
STUDY: X-RAY CHEST REASON FOR EXAM: Female, 32 years old. RECENT LEFT MASTECTOMY, EVALUATION FOR HYPERBARIC OXYGEN TREATMENTS TECHNIQUE: PA and lateral views of the chest. COMPARISON: August 19, 2017 FINDINGS: There is a right-sided Port-A-Cath present with its tip in the region of the superior vena cava near the level of the cavoatrial junction. Lower lung volumes are noted on this exam when compared to prior study with new platelike atelectasis in the left midlung field and in the medial right lung base. The upper lungs are otherwise clear. No pleural effusion. No pneumothorax. No focal lung infiltrate. Normal size heart. Normal mediastinum and alie. Normal visualized pulmonary arteries. Normal visualized aortic arch and descending thoracic aorta. Normal visualized thoracic spine. Normal visualized ribs, clavicles, and shoulders. There is no demonstrated abnormality of the visualized soft tissue structures of the upper abdomen. Left mastectomy noted. RAD/Chest PA and Lateral IMPRESSION: Lower lung volumes with bibasilar atelectatic changes. No focal lung infiltrate. No pneumothorax. Electronically Signed: Sayda Noel MD at 17:06 EDT Tel , Service support ,
--- NOTE | 2018-01-06 19:39 | PN.SURG_ITS ---
Subjective: Postop #2 Patient is resting comfortably. Tolerating the pain reasonably well. She is anxious to go home. - Physical Exam General: Alert, Oriented x3 HEENT: PERRLA, EOMI Neck: Supple Lungs: Clear to auscultation Cardiovascular: Regular rate, Regular Rhythm Skin: Ulcer/ Wound - left breast wound stable. VAC in place. Minimal drainage in the canister. Neurological: Cranial nerves II-XII grossly intact Psych/Mental Status: Normal Affect, Appropriate Vital Signs Temp Pulse Resp BP Pulse Ox 99.0 F 101 H 18 118/72 95 01/06/18 14:15 01/06/18 14:15 01/06/18 14:15 01/06/18 14:15 01/06/18 14:15 Oxygen Flow Rate (L/min) 1 Oxygen Delivery Method Room Air Weight: 238 lb Body Mass Index (BMI) 35.6 Finger Stick Blood Glucose 105 Intake and Output for Last 24 Hours 01/04/18 01/05/18 01/06/18 23:59 23:59 23:59 Intake Total 2699 / 2699 3447 / 3447 1873 / 1873 Output Total 1000 / 1000 1075 / 1075 Balance 1699 / 1699 3447 / 3447 798 / 798 Microbiology Past 72 Hours 01/04/18 Unknown Gram Stain - Final Tissue - Breast Wound Culture - Preliminary Pathology - pending. Medical Necessity - Tobacco Use Smoking Status: Former smoker Assessment/Plan 1. Left breast cancer. 2. s/p lumpectomy with chemotherapy and radiation therapy. 3. Post-lumpectomy painful indentation scar contour deformity left lateral breast. 4. Late effect radiation left breast. 5. Disproportion reconstructed left breast. 6. Post-lumpectomy infected seroma left lateral breast. 7. s/p revision left breast reconstruction with excision painful infected lateral radiation lumpectomy scar contour deformity with completion mastectomy. VAC in place. Minimal drainage in the canister. Tolerating po analgesia. She is anxious to go home. VAC has been approved. Operative culture is negative thus far. Will send home on Augmentin. Pathology is pending. Prealbumin is 24.8. Encourage nutritional supplementation with protein to help the healing process. Discharge home today. Followup Wednesday01/10/18 at [facility] for evaluation for HBO treatments. Wrote script for Augmentin. Wrote scripts for Percocet for pain (60 tabs) and for Valium for spasm (30 tabs) . Wrote script for Duragesic Patch for pain, 25mcg (5 patches). Wrote script for Neurontin for burning nerve pain (90 tabs) and 2 refills. Wrote script for Phenergan for nausea (30 tabs) and a refill and for Colace for constipation (60 tabs).
--- NOTE | 2018-01-06 19:48 | PCM.DC ---
You will use the following diet at home:: No restrictions, Other - encourage nutritional supplementation with protein to help the healing process. Discharge Activity: May not drive while taking narcotic pain medications., May Shower - on the days the vac is changed., - - no heavy lifting. May shower in (days): 2 - may shower on the days the vac is changed. May resume sexual activity in: No Restrictions Weight Bearing Status: Weight bearing as tolerated Lifting Restrictions: 20 lbs. Call your doctor if your incision/area has: Continuous Slow Oozing, Sudden Increased Bleeding, Increased Pain/ Swelling, Increased Redness, Foul Smelling Discharge, Swelling at the incision site Call your doctor if you observe: Fever of 101 or Higher, Coldness, Increased Pain, Shortness of breath, Chest pain, Calf discomfort, Uncontrolled pain Suture Line Care: - - vac changes three times per week at 150 mmHg continuous suction. Change Dressing in (Days):: 2 - vac changes three times per week. Cleanse incision/area with: Soap & Water - may cleanse the wound with soap and water on the days the vac is changed., - - may shower on the days the vac is changed. Additional Dressing/Incision Instructions:: Home Health to assist with vac changes three times per week at 150 mmHg continuous suction. May cleanse the wound with soap and water on the days the vac is changed. Allergies/Adverse Reactions: Allergies hydromorphone [From Dilaudid] Allergy (Severe, Verified 12/27/17 11:54) Laryngospasms morphine Allergy (Severe, Verified 12/27/17 11:54) chest tightening TAPE Adverse Reaction (Mild, Uncoded 12/09/17 13:37) Other Medications to take at Discharge Pentoxifylline [Trental] 400 mg PO BID 01/03/18 Tamoxifen Citrate [Nolvadex] 20 mg PO QHS 01/03/18 Vitamin E 400 unit PO QHS 01/03/18 Amox/Clavulanate Tablet [Augmentin Tablet] 875 mg PO BID #28 tab 01/06/18 Diazepam [Valium] See Label Instructions PO .4x/day prn PRN #30 tab 01/06/18 Docusate Sodium [Colace] 100 mg PO BID #60 cap 01/06/18 Fentanyl 25 mcg TD Q3D 15 Days #5 patch.td72 01/06/18 Gabapentin [Neurontin] 300 mg PO TIDCM 30 Days #90 cap 01/06/18 Oxycodone HCl/Acetaminophen [Percocet 5-325] See Label Instructions PO .4x/day prn PRN 7 Days #60 tab 01/06/18 proMETHazine tablet [Phenergan tablet] 25 mg PO 4X/DAY PRN PRN #30 tab 01/06/18 The following prescriptions were given: Diazepam [Valium] See Label Instructions PO .4x/day prn PRN #30 tab PRN Reason: Anxiety Fentanyl 25 mcg TD Q3D 15 Days #5 patch.td72 Oxycodone HCl/Acetaminophen [Percocet 5-325] See Label Instructions PO .4x/day prn PRN 7 Days #60 tab PRN Reason: Pain proMETHazine tablet [Phenergan tablet] 25 mg PO 4X/DAY PRN PRN #30 tab PRN Reason: NAUSEA/VOMITING Amox/Clavulanate Tablet [Augmentin Tablet] 875 mg PO BID #28 tab Docusate Sodium [Colace] 100 mg PO BID #60 cap Gabapentin [Neurontin] 300 mg PO TIDCM 30 Days #90 cap Primary Care Physician: Rhett Elias MD [Primary Care Provider] - Please Follow Up With: Jose Robertson MD - call [phone] if questions. When: wednesday01/10/18 at [facility] at 900 am. Please Follow Up With: Evangelist Moseley MD When: next couple weeks to schedule endoscopy. Proposed Discharge Date: 01/06/18
--- NOTE | 2018-01-06 19:55 | DS.PCM_ITS ---
Discharge Date and Diagnosis Date of Admission: 01/03/18 Date of Discharge: 01/06/18 - Primary Discharge Diagnosis Post-lumpectomy painful indentation scar contour deformity left lateral breast. Late effect radiation left breast. Left breast cancer. - Secondary Discharge Diagnosis s/p lumpectomy with chemotherapy and radiation therapy. Disproportion reconstructed left breast. Post-lumpectomy infected seroma left lateral breast. 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 Procedures: Wound vac placement Summary of Care Provided: The patient is a 32 year old F who presented with increasing pain in her left lateral breast after having undergone radiation therapy for breast cancer. She was first diagnosed with left breast cancer and underwent a lumpectomy and sentinel lymph node biopsy in 04/03. Pathology showed poorly differentiated infiltrating ductal carcinoma which was ER negative, MT weakly positive, and HER2/dilia positive. She was started on IV chemotherapy with difficulties with pancytopenia and thrombocytopenia. It was noted that she had difficulty with the lumpectomy incision since the surgery. She developed a post-lumpectomy seroma ulcer that necessitated surgical intervention on 08/05/17 where she underwent surgical preparation left lateral breast with incision and drainage and excision nonhealing post- lumpectomy seroma ulcer with 9 cm complex secondary wound closure. It healed without issues initially. Operative culture showed Anaerobic cocci and she was treated with antibiotics. The incision has remained healed, but she has developed increasing pain in the area of the lateral incision and extending laterally onto the chest wall and axillary area. The symptomatology has worsened since the radiation was done. She states she has trouble taking care of her children because of the pain. She tries to take very little pain medication because she wants to be alert with her children. However it has started to affect her ability to get sleep at night secondary to the pain. I had discussed with her that she has increased edema from the radiation therapy which is aggravating the scar tissue on her chest wall from her previous seroma surgery. Because of the worsening pain, I am concerned about a possible infection in the area of the previous seroma surgery. She was admitted on 01/03/18 for IV antibiotics with Unasyn and an MRI was obtained which showed no abnormal enhancing masses or areas of non-mass enhancement in the left breast and no enlarged or abnormal lymph nodes. Operative intervention was recommended to debride the seroma cavity scar tissue and associated radiation fibrosis that is present that is aggravating her painful symptomatology. Depending on the size of the resultant cavity after the revision excision, if I feel that there will be healing issues or that the remaining breast tissue will start to develop firmness from the radiation effects, then I would proceed with completion mastectomy. This would be followed by post-discharge HBO treatments to help the healing process in preparation for further breast reconstruction surgery. On 01/04/18, the patient underwent revision left breast reconstruction with excision painful infected lateral radiation lumpectomy scar contour deformity with completion mastectomy. The following day the VAC was applied with some pain. She needed IV analgesia. By the second postop day, she was tolerating po analgesia and was ready for discharge. Her Pathology was pending. Her operative culture was negative at the time of discharge. She was treated with Unasyn while hospitalized. She will be discharged on Augmentin. On 01/06/18, the VAC was approved and she was tolerating po analgesia and she was discharged home. Home Health has been set up to assist with the VAC dressing changes three times per week at 150 mmHg continuous suction. Prealbumin on 01/03/18 was 24.8. Encouraged nutritional supplementation with protein to help the healing process. She will followup on Wednesday01/10/18 [facility] for evaluation for HBO treatments. She told me she was set up for endoscopy with Dr. Moseley on . She wants to proceed with the HBO treatments. So I called Dr. Moseley's office to cancel the endoscopy for 01/10/18. His office will call the patient over the next 1-2 weeks to reschedule the endoscopy. Wrote script for Augmentin. If the operative culture becomes positive, then antibiotic modification may be necessary. Wrote scripts for Percocet for pain (60 tabs) and for Valium for spasm (30 tabs) . Wrote script for Duragesic Patch for pain, 25mcg (5 patches). Wrote script for Neurontin for burning nerve pain (90 tabs) and 2 refills. Wrote script for Phenergan for nausea (30 tabs) and a refill and for Colace for constipation (60 tabs). Condition upon discharge is good. Discharge Diet: No Restrictions, - - encourage nutritional supplementation with protein to help the healing process. Discharge Activity: May not drive while taking narcotic pain medications., May Shower - on the days the vac is changed., - - no heavy lifting. May shower in (days): 2 - may shower on the days the vac is changed. May resume sexual activity in: No Restrictions Weight Bearing Status: Weight bearing as tolerated Call your doctor if your incision/area has: Continuous Slow Oozing, Sudden Increased Bleeding, Increased Pain/ Swelling, Increased Redness, Foul Smelling Discharge, Swelling at the incision site Call your doctor if you observe: Fever of 101 or Higher, Coldness, Increased Pain, Shortness of breath, Chest pain, Calf discomfort, Uncontrolled pain Suture Line Care: - - vac changes three times per week at 150 mmHg continuous suction. Change Dressing in (Days):: 2 - vac changes three times per week. Cleanse incision/area with: Soap & Water - may cleanse the wound with soap and water on the days the vac is changed., - - may shower on the days the vac is changed. Additional Dressing/Incision Instructions:: Home Health to assist with vac changes three times per week at 150 mmHg continuous suction. May cleanse the wound with soap and water on the days the vac is changed. Home Medications: Medications to take at Discharge Pentoxifylline [Trental] 400 mg PO BID 01/03/18 Tamoxifen Citrate [Nolvadex] 20 mg PO QHS 01/03/18 Vitamin E 400 unit PO QHS 01/03/18 Amox/Clavulanate Tablet [Augmentin Tablet] 875 mg PO BID #28 tab 01/06/18 Diazepam [Valium] See Label Instructions PO .4x/day prn PRN #30 tab 01/06/18 Docusate Sodium [Colace] 100 mg PO BID #60 cap 01/06/18 Fentanyl 25 mcg TD Q3D 15 Days #5 patch.td72 01/06/18 Gabapentin [Neurontin] 300 mg PO TIDCM 30 Days #90 cap 01/06/18 Oxycodone HCl/Acetaminophen [Percocet 5-325] See Label Instructions PO .4x/day prn PRN 7 Days #60 tab 01/06/18 proMETHazine tablet [Phenergan tablet] 25 mg PO 4X/DAY PRN PRN #30 tab 01/06/18 Following Prescrptions Were Given to Patient: Diazepam [Valium] See Label Instructions PO .4x/day prn PRN #30 tab PRN Reason: Anxiety Fentanyl 25 mcg TD Q3D 15 Days #5 patch.td72 Oxycodone HCl/Acetaminophen [Percocet 5-325] See Label Instructions PO .4x/day prn PRN 7 Days #60 tab PRN Reason: Pain proMETHazine tablet [Phenergan tablet] 25 mg PO 4X/DAY PRN PRN #30 tab PRN Reason: NAUSEA/VOMITING Amox/Clavulanate Tablet [Augmentin Tablet] 875 mg PO BID #28 tab Docusate Sodium [Colace] 100 mg PO BID #60 cap Gabapentin [Neurontin] 300 mg PO TIDCM 30 Days #90 cap Primary Care Physician: Rhett Elias MD [Primary Care Provider] - Please Follow Up With: Jose Robertson MD - call [phone] if questions. When: wednesday01/10/18 at [facility] at 900 am. Please Follow Up With: Evangelist Moseley MD When: next couple weeks to schedule endoscopy. Disposition: Home with Home Health Minutes spent on discharge:: 35 Patient Condition:: Stable Medical Necessity - Tobacco Use Smoking Status: Former smoker Meaningful Use Info Meaningful Use Diagnoses (Choose all that apply): None applicable
[2018-01-06 20:22] VITALS: BP 117/63; PULSE 98; RESP 18; TEMP 37.2; O2SAT 96
--- NOTE | 2018-01-07 07:50 | CASEMGMT ---
DC instructions faxed to [facility]. Mirella CABRALN RN ACM
--- NOTE | 2018-01-07 10:19 | CASEMGMT ---
Call received this am from [facility] stating they are now not able to take pt this weekend. JAN ESPANA called to wound center to request appt for today for pt to have wound vac changed, they declined stating pt has not been established with them (she has appt for wednesday @ 9 am). Pt will need to come to [facility] today for wound vac change as outpt. Charge nurse called Dr. Robertson and received orders. JAN ESPANA called to [facility] to notify pt will be coming in later today for outpt wound vac change on Med Surg 2. -Call returned to Mona @ [facility] @ [phone] to notify of above and they can accept pt for start of care on Wednesday, January 12, 2017. -JAN ESPANA called to patient who is agreeable to plan above and states she will ask friend to drive her to hospital this afternoon, or have her take her when he comes home from work this evening around 5:30. JAN ESPANA did let pt know that nurse who can do dressing change will be leaving by 7:30. Mirella CABRALN RN ACM
== END 2018-01-06 20:45 | disposition home or self-care (01) | DRG 585 ==
PROVIDERS: Anesthesiology; Admitting Provider Surgery; Family Provider Family Medicine; PCP Family Medicine; Visit Provider Surgery
PROC: 0HTU0ZZ Resection of Left Breast, Open Approach (ICD-10-PCS; CPT 19303; principal; 2018-01-04 07:15)
DX: L59.8 Other specified disorders of the skin and subcutaneous tissue related to radiation (principal); K76.0 Fatty (change of) liver, not elsewhere classified; E03.9 Hypothyroidism, unspecified; L90.5 Scar conditions and fibrosis of skin; G47.33 Obstructive sleep apnea (adult) (pediatric); G89.29 Other chronic pain; M54.9 Dorsalgia, unspecified; G47.419 Narcolepsy without cataplexy; F41.9 Anxiety disorder, unspecified; F32.9 Major depressive disorder, single episode, unspecified; Y84.2 Radiological procedure and radiotherapy as the cause of abnormal reaction of the patient, or of later complication, without mention of misadventure at the time of the procedure; N65.0 Deformity of reconstructed breast; Z87.891 Personal history of nicotine dependence; Z85.3 Personal history of malignant neoplasm of breast; Z92.3 Personal history of irradiation; Z92.21 Personal history of antineoplastic chemotherapy
CPT/HCPCS: 36415; 71046; 77059; 80048; 80053; 81025; 84134; 84443; 85025; 85027; 85652; 85730; 86140; 87070; 87075; 87077; 87102; 87186; 87205; 87206; 88307; 93005; 97110; 97165; A9585; J7120; A4216; C8908; J0295; J2405

== ENCOUNTER → 2018-01-07 13:32 | Outpatient (CLI) | payer BC, OTHER, SELFPAY ==
[2017-09-29 13:07] VITALS: BMI 36.4
== END ==
PROVIDERS: Family Provider Family Medicine; PCP Family Medicine; Visit Provider Surgery
DX: Z00.8 Encounter for other general examination (principal)
CPT/HCPCS: 99211; G0463

== ENCOUNTER 2018-01-10 09:07 | Outpatient (RCR) | payer BC, SELFPAY ==
[2017-09-29 13:07] VITALS: BMI 36.4
[2018-01-10 09:28] VITALS: BP 155/97; RESP 16; TEMP 37.2; BMI 34.9
--- NOTE | 2018-01-10 18:56 | PCM.WC.PN ---
Type of Wound Date of Service: 01/10/18 Chief Complaint: Open surgical mastectomy wound left breast after surgery 01/04/18. History of Wound: Surgery 01/04/18 - Revision left breast reconstruction with excision painful infected lateral radiation lumpectomy scar contour deformity with completion mastectomy. Wound care - VAC. Operative culture - Staphylococcus aureus. She was discharged on Augmentin. She had trouble with it and will change to Doxycycline. Today she denies fever. Her appetite is average. She finished radiation therapy for her left breast cancer in October. She will be evaluated for HBO treatments to help the healing process. Progress of Wound: Recent surgery 01/04/18. - Physical Exam Vital Signs Temp Resp BP 98.9 F 16 155/97 H 01/10/18 09:28 01/10/18 09:28 01/10/18 09:28 HEENT: TM's Clear - No bleeding seen. Skin: Ulcer/ Wound - left breast wound is stable. No bleeding seen. Tender to palpation. Debridement Note Post-Debridement Measurements/Treatment WC - Nurse 2 - General Ulcer CM Notes Start: 01/10/18 09:27 Freq: Status: Active Protocol: Activity Type Activity Date Activity User E-Sign Co-Sign Detail Recorded Client Recorded Date Recorded By Document 01/10/18 10:39 [id number] 01/10/18 10:40 TAE 01/10/18 10:39 [facility] Nurse 2 #1- LT BREAST POST OP -Correct Patient No -Correct Side, Site, Position No -Correct Procedure No -Procedure Performed No -Bleeding Controlled with NA Pain Scale: 0-10 Numeric Is Patient Pain Free? Yes Wound debrided: #1 Left breast. Laterality: Left Wound Grade/Stage: 2. No debridement was completed today - Patient had recent surgery on 01/04/18. Assessment/Plan Assessment: 1. Left breast cancer. 2. s/p lumpectomy with chemotherapy and radiation therapy. 3. Post-lumpectomy painful indentation scar contour deformity left lateral breast. 4. Late effect radiation left breast. 5. Disproportion reconstructed left breast. 6. Post-lumpectomy infected seroma left lateral breast. 7. s/p revision left breast reconstruction with excision painful infected lateral radiation lumpectomy scar contour deformity with completion mastectomy. Plan: Continue the VAC. She is being evaluated for HBO. Her CXR is ok. Change antibiotics to Doxycycline for the Staphylococcus aureus. Encourage nutritional supplementation with protein to help the healing process. Renewed her Duragesic Patch, 50 mcg, for pain (5 patches) to be dispensed 01/21/18. Renewed her Percocet for pain (60 tabs), to be dispensed 01/13/18. Renewed her Valium for spasm, 1-2 tabs, (60 tabs), to be dispensed 01/13/18. Followup one week.
--- NOTE | 2018-01-17 18:07 | PN.PCM_ITS ---
Type of Wound Date of Service: 01/10/18 Chief Complaint: Open surgical mastectomy wound left breast after surgery . History of Wound: Surgery 01/04/18 - Revision left breast reconstruction with excision painful infected lateral radiation lumpectomy scar contour deformity with completion mastectomy. Wound care - VAC. Operative culture - Staphylococcus aureus. She was discharged on Augmentin. She had trouble with it and will change to Doxycycline. Today she denies fever. Her appetite is average. She finished radiation therapy for her left breast cancer in October. She will be evaluated for HBO treatments to help the healing process. Progress of Wound: Recent surgery 01/04/18. - Physical Exam Vital Signs Temp Resp BP 98.9 F 16 155/97 H 01/10/18 09:28 01/10/18 09:28 01/10/18 09:28 HEENT: TM's Clear - No bleeding seen. Skin: Ulcer/ Wound - left breast wound is stable. No bleeding seen. Tender to palpation. Debridement Note Post-Debridement Measurements/Treatment WC - Nurse 2 - General Ulcer CM Notes Start: 01/10/18 09:27 Freq: Status: Active Protocol: Activity Type Activity Date Activity User E-Sign Co-Sign Detail Recorded Client Recorded Date Recorded By Document 01/10/18 10:39 [id number] 01/10/18 10:40 TAE 01/10/18 10:39 Wound Center Nurse 2 #1- LT BREAST POST OP -Correct Patient No -Correct Side, Site, Position No -Correct Procedure No -Procedure Performed No -Bleeding Controlled with NA Pain Scale: 0-10 Numeric Is Patient Pain Free? Yes Wound debrided: #1 Left breast. Laterality: Left Wound Grade/Stage: 2. No debridement was completed today - Patient had recent surgery on 01/04/18. Assessment/Plan Assessment: 1. Left breast cancer. 2. s/p lumpectomy with chemotherapy and radiation therapy. 3. Post-lumpectomy painful indentation scar contour deformity left lateral breast. 4. Late effect radiation left breast. 5. Disproportion reconstructed left breast. 6. Post-lumpectomy infected seroma left lateral breast. 7. s/p revision left breast reconstruction with excision painful infected lateral radiation lumpectomy scar contour deformity with completion mastectomy. Plan: Continue the VAC. She is being evaluated for HBO. Her CXR is ok. Change antibiotics to Doxycycline for the Staphylococcus aureus. Encourage nutritional supplementation with protein to help the healing process. Renewed her Duragesic Patch, 50 mcg, for pain (5 patches) to be dispensed 01/21/18. Renewed her Percocet for pain (60 tabs), to be dispensed 01/13/18. Renewed her Valium for spasm, 1-2 tabs, (60 tabs), to be dispensed 01/13/18. Followup one week.
== END 2018-01-15 23:59 ==
LOC: WC 09:07
PROVIDERS: Family Provider Family Medicine; PCP Family Medicine; Visit Provider Surgery
DX: N65.0 Deformity of reconstructed breast (principal); C50.912 Malignant neoplasm of unspecified site of left female breast; L90.5 Scar conditions and fibrosis of skin; Z90.12 Acquired absence of left breast and nipple
CPT/HCPCS: 97606; 99213; G0463

== ENCOUNTER 2018-01-13 15:41 | Inpatient (IN) | payer BC, SELFPAY ==
[2017-09-29 13:07] VITALS: BMI 36.4
[2018-01-13 15:42] VITALS: BP 137/98; PULSE 138; RESP 22; TEMP 37.9; O2SAT 97; BMI 34.6
--- NOTE | 2018-01-13 16:05 | RAD_ITS ---
STUDY: X-RAY CHEST REASON FOR EXAM: Female, 32 years old. Fever, chills, diaphoresis. Wound VAC applied to the left breast status post left mastectomy. Sent home with antibiotics. TECHNIQUE: 1 view COMPARISON: Prior chest radiograph of January 06, 2018. FINDINGS: Right subclavian venous line ends at the atriocaval junction. The lungs are clear and expanded. Prior atelectatic changes have resolved. Negative for new consolidation or pleural effusion. Normal size heart. Normal mediastinum and alie. Normal visualized pulmonary arteries. Normal visualized aortic arch and descending thoracic aorta. Normal visualized thoracic spine. Normal visualized ribs, clavicles, and shoulders. Obvious soft tissue deformity of the lateral margin of the breast and an overlying drainage catheter. RAD/Chest 1 View (Portable) IMPRESSION: No acute cardiopulmonary findings. Prior atelectatic changes have resolved with no new area of focal consolidation, substantial atelectasis or pleural effusion. Right subclavian catheter remains ending at the atriocaval junction. Obvious soft tissue deformity of the lateral margin of the left breast with overlying drainage catheter. Electronically Signed: Cici Rosario MD at 16:42 EDT , Service support ,
--- NOTE | 2018-01-13 16:19 | ED.DCSUM_ITS ---
- ER Visit Summary Date of Service: 01/13/18 Chief Complaint: Fever History of Present Illness: The patient is a 32 F presenting with fever. She states this started today. She had a mastectomy completion per Dr. Robertson last Wednesday. She was seen in the office on Wednesday. She has a wound VAC. The dressing is changed Wednesday. She talked to Dr. Robertson's nurse today and was advised to come into the ED because of fever. She has had fever, chills. She denies chest pain or shortness of breath. Denies cough. She has had nausea with no vomiting. She is currently on immunotherapy for breast cancer. Physical Examination: Vitals are stable. Temperature 100.3 heart rate 138 alert no acute distress. HEENT exam is unremarkable. Neck is supple. No meningismus Lungs are clear and equal bilaterally. Left breast tenderness with wound VAC in place. Heart is regular and tachycardic Abdomen is soft nontender nondistended. Extremities are unremarkable. Skin is warm and dry. No focal neurologic deficit. Remainder of exam is unremarkable. Emergency Department Course and Treatment: Patient is given IV fluids, Tylenol, Zofran. Chest x-ray shows no acute process. She is given vancomycin IV. Discussed with Dr. Robertson and he will admit for further IV antibiotics. Disposition: Admission Impression: Febrile Illness, s/p mastectomy, history of breast cancer This note was generated with [employer] dictation software. It may contain incorrect words, spelling, and punctuation that were not noted in review of the chart prior to signing ED Disposition - Plan for ED Patient: Chief Complaint: Fever Referrals: Rhett Elias MD [Primary Care Provider] -
[2018-01-13 16:34] LABS: Bacteria 0 SEEN /hpf (None Seen)
[2018-01-13 16:48] LABS: Color, Urine Yellow (Yellow); Glucose, Dipstick Normal (Normal); Ketone-Dipstick 5 mg/dl (Negative); Leukocyte Esterase-Dipstick 100 /ul (Negative); Nitrite-Dipstick Negative (Negative); Occult Blood-Urine 10 /ul (Negative); Protein-Dipstick 30 mg/dl (Negative); Urine Bilirubin Dipstick Negative (Negative); Urine Clarity Sl. Cloudy (Clear); Urine Urobilinogen Normal (Normal)
[2018-01-13] MEDS: 0.9% Normal Saline 1,000 ML 1000 ML IV (16:48)
[2018-01-13] MEDS: Ondansetron 4 MG/2 ML Vial IV (16:48)
[2018-01-13 16:54] LABS: Amorphous Sediment 1+ URATE; Mucous, Urine RARE /hpf (<or=2+); Red Blood Cells-Urine 0-5 SEEN /hpf (0-5); Squamous Epithelial Cells - UA 10-25 SEEN /hpf (5-10); White Blood Cells 5-10 SEEN /hpf (0-5)
--- NOTE | 2018-01-13 16:55 | CON.PCM_ITS ---
Problem List (1) Pain of left breast Status: Acute (2) Deformity of reconstructed breast Status: Acute Comment: lateral deformity reconstructed left breast (3) Personal history of malignant neoplasm of breast Status: Chronic (4) Cancer of left female breast Status: Chronic Qualifiers: Estrogen receptor status: positive (5) Drug induced neutropenia Status: Resolved (6) Pancytopenia Status: Resolved (7) Fatty liver Status: Chronic (8) STEVE (obstructive sleep apnea) Status: Chronic (9) Chronic back pain Status: Chronic Qualifiers: Back pain location: back pain in unspecified location Back pain laterality : unspecified Qualified Code(s): M54.9 - Dorsalgia, unspecified; G89.29 - Other chronic pain (10) Hypothyroidism Status: Chronic Qualifiers: Hypothyroidism type: unspecified Qualified Code(s): E03.9 - Hypothyroidism , unspecified (11) Narcolepsy Status: Chronic (12) Anxiety and depression Status: Chronic (13) Fever Status: Acute Qualifiers: Fever type: unspecified Qualified Code(s): R50.9 - Fever, unspecified (14) Wound infection Status: Acute Reason for Consult Date of Consultation: 01/13/18 Reason for Consultation: Medical consultation. History of Present Illness: The patient is a 32 y/o F w/ PMHx: Obesity, Hypothyroidism, Anxiety and Depression, Fatty Liver Disease, Narcolepsy, STEVE, Chronic Back Pain, L Breast CA treated with chemotherapy and radiation prior and Leukine injections following w/ Dr. Edouard initially diagnosed 03/2017 following lumpectomy and SLNBx with pathology demonstrating infiltrating ductal carcinoma (ER negative, ND weakly positive, HER2/dilia positive) with development post-lumpectomy seroma ulcer requiring intervention 08/05/17 with noted complex secondary wound closure with OR cx w/ anaerobic cocci treated with abx with ongoing pain to the area of the lateral incision and into the lateral chest wall and axillary region as well prompting follow-up 01/04/18 revision of left breast reconstruction with excision painful infected lateral radiation lumpectomy scar contour deformity with completion mastectomy who now re-presents to the [facility] ED on 01/13/18 with onset of fever of day of presentation. Dr. Robertson was noted per patient to have recently de-escalated her abx therapy on the Wednesday prior to current presentation to doxycycline per patient report. In the ED work-up included T 99.2, HR 111, BP 123/85, RR 21, 98% on RA, CBC w/ WBC 8.3, Hgb 10.6, Plts 230 without marked shift, BMP unremarkable, Bld Cx x 2 obtained. VAC maintained in place pending Dr. Claudette thomas. Patient admitted per Dr. Robertson, initiated on Vancomycin in the ED with Hospitalist evaluation request. Past Medical History Past Medical History (Chronic Problems): Chronic Problems (Last Reviewed 12/27/17 @ 11:54 by Mile Healy) Intermittent epigastric abdominal pain (Chronic) Personal history of malignant neoplasm of breast (Chronic) Cancer of left female breast (Chronic) Fatty liver (Chronic) STEVE (obstructive sleep apnea) (Chronic) Chronic back pain (Chronic) Hypothyroidism (Chronic) Narcolepsy (Chronic) Anxiety and depression (Chronic) Allergies hydromorphone [From Dilaudid] Allergy (Severe, Verified 01/13/18 15:45) Laryngospasms morphine Allergy (Severe, Verified 01/13/18 15:45) chest tightening TAPE Adverse Reaction (Mild, Uncoded 01/13/18 15:45) Other Home Medications: Ambulatory Orders Medication Instructions Recorded Tamoxifen Citrate [Nolvadex] 20 mg PO QHS 01/03/18 Vitamin E 400 unit PO QHS 01/03/18 Fentanyl 25 mcg TD Q3D 15 Days #5 patch.td72 01/06/18 Gabapentin [Neurontin] 300 mg PO TIDCM 30 Days #90 cap 01/06/18 proMETHazine tablet [Phenergan 25 mg PO 4X/DAY PRN PRN #30 tab 01/06/18 tablet] Diazepam [Valium] 5 mg PO .4x/day prn PRN 01/10/18 Oxycodone HCl/Acetaminophen 5 - 325 mg PO .4x/day prn PRN 01/10/18 [Percocet 5-325] Docusate Sodium [Colace] 100 mg PO BID 01/13/18 Doxycycline Hyclate [Doxycycline 100 mg PO BID 01/13/18 Hyclate] Pentoxifylline [Trental] 400 mg PO TID 01/13/18 Surgical History: - - [place] teeth, [place], Partial Mastectomy 04/06/17, Port Placement, left lateral breast with incision and drainage and excision nonhealing post-lumpectomy seroma ulcer with 9 cm complex secondary wound closure, recent Revision left breast reconstruction with excision painful infected lateral radiation lumpectomy scar contour deformity with completion mastectomy. 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 Paternal History Items: Heart Disease, Hypertension Review of Systems Constitutional: Reports: Anorexia, Chills, Fever, Malaise, Weakness, Fatigue. Denies: Weight Change HEENT: Denies: Head Aches, Sinus Congestion, Sinus Drainage Cardiovascular: Denies: Chest Pain, Palpitations Respiratory: Denies: Cough, Shortness of breath at rest, Sputum production Gastrointestinal: Denies: Abdominal Pain, Nausea, Vomiting Genitourinary: Denies: Dysuria Gynecological: Reports: Breast symptoms Musculoskeletal: Denies: Joint Pain, Joint Tenderness Skin: Reports: Skin Changes, Wounds. Denies: Rash Neurological: Denies: Numbness, Tingling, Focal weakness Psychiatric: Reports: Anxiety, Depression. Denies: Homicidal Ideations, Suicidal Ideations Hematologic/ Lymphatic: Reports: Anemia. Denies: Easy Bruising, Easy Bleeding Patient Problems: Active and Suspected Problems (Last Reviewed 12/27/17 @ 11:54 by Mile Healy) Wound infection (Acute) Subjective: Seated upright in the ED bed, fatigued appearance. Objective: Physical Examination: General: awake, alert, oriented x 3 and cooperative, seated upright in the ED bed, fatigued and ill appearing. Skin: normal color, turgor, no icterus, cyanosis except L lateral breast region VAC in place, no marked gemini-wound erythema noted, severe TTP of the region however, warm to touch. HEENT: AT/NC, EOMI, PERRLA, dry MM, no carotid bruits or JVD noted. Lungs: CTA bilaterally, moderate effort, moderate decrease BL bases, no rales, ronchi or wheezing. Heart: Tachycardic with regular rhythm; no gallop, rub audible. Abdomen: soft, obese, NTTP, ND, normal BS, no HSM. Extremities: no cyanosis, clubbing, decreased usage LUE, chronic. Neurological: patient awake, alert, oriented x 3; cognitive function intact; pupils equally reactive to light and accomodation; cranial nerves II-XII grossly normal, moving RUE and BL LE, chronic debility LUE, strength severely globally decreased secondary to acute presentation. Psychiatric: affect appears flat, fatigued, no acute evidence of depressive or anxiety feelings. - Physical Exam Vital Signs Temp Pulse Resp BP Pulse Ox 100.3 F H 138 H 22 H 137/98 H 97 01/13/18 15:42 01/13/18 15:42 01/13/18 15:42 01/13/18 15:42 01/13/18 15:42 Oxygen Delivery Method Room Air Weight: 227 lb 11.8 oz Body Mass Index (BMI) 34.6 Finger Stick Blood Glucose 105 Laboratory Tests Past 24 Hrs 01/13/18 16:24 Urine Color Yellow Urine Clarity Sl. Cloudy Urine pH 5.0 Ur Specific [place] 1.020 Urine Protein 30 H Urine Glucose (UA) Normal Urine Ketones 5 H Urine Occult Blood 10 H Urine Nitrite Negative Urine Bilirubin Negative Urine Urobilinogen Normal Ur Leukocyte Esterase 100 H Urine RBC 0-5 SEEN Urine WBC 5-10 SEEN Ur Squamous Epith Cells 10-25 SEEN Amorphous Sediment 1+ URATE Urine Bacteria 0 SEEN Urine Mucus RARE Assessment/Plan Active and Suspected Problems (Last Reviewed 12/27/17 @ 11:54 by Mile Healy) Wound infection (Acute) The patient is a 32 y/o F w/ PMHx: Obesity, Hypothyroidism, Anxiety and Depression, Fatty Liver Disease, Narcolepsy, STEVE, Chronic Back Pain, L Breast CA treated with chemotherapy and radiation prior and Leukine injections following w/ Dr. Edouard initially diagnosed 03/2017 following lumpectomy and SLNBx with pathology demonstrating infiltrating ductal carcinoma (ER negative, ND weakly positive, HER2/dilia positive) S/P 01/04/18 revision of left breast reconstruction with excision painful infected lateral radiation lumpectomy scar contour deformity with completion mastectomy who now re-presents to the [facility] ED on 01/13/18 with onset of fever of day of presentation. (1) L Breast Region Possible Post-surgical Infection w/ Fever: Admitted to [facility] per Dr. Robertson, maintain on IV Vanc and add Zosyn per review of prior anaerobic Cx, will await Dr. Robertson removal VAC with planned if appropriate Wound Cx and MRSA Cx, plan repeat CBC in AM, continue affected extremity elevation above heart when seated and in bed, monitor erythema outline with VS checks. Wound RN consultation pending. (2) L Breast CA (infiltrating ductal carcinoma): Patient treated with chemotherapy and radiation prior and Leukine injections, following w/ Dr. Edouard initially diagnosed 03/2017 following lumpectomy and SLNBx with pathology demonstrating infiltrating ductal carcinoma noted to be ER negative, ND weakly positive, HER2/dilia positive. Maintain on tamoxifen (3) Anxiety and Depression: Maintain on home regimen valium, not on SSRI/SNRI, encourage outpatient follow-up. (4) Chronic Pain Syndrome: Maintain on home regimen fentanyl TD, gabapentin, percocet. Severe allergies to morphine and dilaudid. (5) Obesity: Once appropriate, would encourage weight loss and lifestyle changes. (6) Hypothyroidism: Agent not listed, TSH and FT4 pending. (7) STEVE: CPAP if appropriate. (8) DVT Prophylaxis: SCDs, lovenox. Code Visit Office Visits / Consults: [id number] IP Consult L4
[2018-01-13 17:27] LABS: Anion Gap 10 (5-15); BUN 18 mg/dL (7-18); BUN/Creat Ratio 19.2 RATIO (10-20); Calcium,Total 8.6 mg/dL (8.5-10.1); Chloride 106 mmol/L (98-107); Creatinine, Serum 0.94 mg/dL (0.55-1.02); EST Glomerular Filtration Rate 73 mL/min (>60); Est Glom Filt Rate - Afr Amer 88 mL/min (>60); Estimated Creatinine Clearance 85.87 ml/min; Glucose 107 mg/dL (74-106); Potassium 3.6 mmol/L (3.5-5.1); Sodium Level 140 mmol/L (136-145)
[2018-01-13 17:33] LABS: Absolute Lymphocyte Count 1.08 X10^3/ul (0.83-4.51); Absolute Neutrophil Count 6.5 X10^3/uL (2.0-7.7); Basophil# 0.01 X10^3/uL; Basophil% 0.1 % (0-1); Eosinophil# 0.07 X10^3/uL; Eosinophils% 0.8 % (0-5); Hematocrit 31.4 % (37-47); Hemoglobin 10.6 g/dl (12.0-15.0); Lymphocyte # 1.08 X10^3/ul (4.0); Mean Corp Hgb Conc 33.8 g/gl (32-36); Mean Platelet Vol. 8.5 fl (6.2-12.0); Monocyte% 7.2 % (0-10); Neutrophil # 6.54 X10^3/uL (2.7-7.7); Neutrophil % 78.8 % (47-70); Platelet Count 230 K/mm3 (150-450); RBC Distribution Width SD 40.9 fl (35.1-43.9); Red Blood Count 3.53 M/mm3 (4.2-5.4); White Blood Count 8.3 K/mm3 (4.4-11.0)
[2018-01-13 17:38] LABS: POSITIVE COUNT NO; POSITIVE DIFFERENTIAL NO; POSITIVE MORPHOLOGY NO
[2018-01-13] MEDS: Acetaminophen 500 MG Tablet 1000 MG PO (17:39)
[2018-01-13 17:41] VITALS: PULSE 111; RESP 17; O2SAT 97
[2018-01-13] MEDS: Piperacil/Tazobactam 3.375 GM/50 ML ML IV (17:48)
[2018-01-13 18:04] VITALS: BP 123/85; PULSE 111; RESP 21; TEMP 37.3; O2SAT 98
--- NOTE | 2018-01-13 18:31 | ED.RN ---
PER ARIS WITH CRISIS; HE IS WORKING WITH [place] [employer] [facility] TO GET PT ADMITTED; ZORAIDA WITH TAKE OVER THE CASE; FACILITY CALLED ASKED WE FAXED TOXICOLOGY RESULTS TO FACILITY
[2018-01-13 19:27] LABS: Magnesium 1.7 mg/dL (1.6-2.6); T4 Free Direct 0.91 ng/dL (0.76-1.46)
--- NOTE | 2018-01-13 19:51 | PCM.PN.BLA ---
Progress Note DATE OF PREVIOUS ADMISSION HISTORY AND PHYSICAL - January 03, 2018. DATE OF PREVIOUS SURGERY - January 04, 2018. The patient had surgery on 01/04/18 where she underwent revision left breast reconstruction with excision painful infected lateral radiation lumpectomy scar contour deformity with completion mastectomy. The VAC was applied after surgery. Wound culture showed Staphylococcus aureus. She was discharged home on Augmentin. Later on at the [facility], she was being evaluated for HBO treatments, and the antibiotics were changed to Doxycycline. Earlier today she called complaining of increasing pain in her left breast wound as well as increasing temperature and increasing heart rate. She went to the ED for evaluation. She was started on Vancomycin. Her Pulse was 138. Her Temperature was 100.3. She is being admitted for IV antibiotics because she has failed outpatient therapy. Will remove the VAC and place it on hold. Will start daily dressing changes with Aquacel Silver. Will culture the wound as well. Anticipate will send her home on IV antibiotics. Will consult the Hospitalist Service to assist with medical management.
[2018-01-13 20:23] VITALS: BP 131/85; PULSE 101; RESP 16; TEMP 37.1; O2SAT 98
[2018-01-13 22:50] VITALS: O2SAT 96
--- NOTE | 2018-01-13 23:05 | NURSING ---
Removed pts home wound vac per Dr. Robertson's order. Home wound vac machine placed in a clear bag, left on counter with pts name. Wound appearace is a beefy red color with sporadic areas of eschar. Wound size 15L:3w:2.8D:3Tunnel. Redressed with aquacel AG and kerlix dressing topped with 2 ABD pads. D&I.
--- NOTE | 2018-01-13 23:54 | PCM.RX.CS ---
Consult Pharmacy has been consulted to manage selected antiobiotic: Vancomycin Type of Consult: New start Suspected Infection: Skin/Soft tissue Labs: Sodium 140 mmol/L (136-145) 01/13/18 16:50 Potassium 3.6 mmol/L (3.5-5.1) 01/13/18 16:50 Chloride 106 mmol/L (98-107) 01/13/18 16:50 Carbon Dioxide 24.0 mmol/L (21.0-32.0) 01/13/18 16:50 Anion Gap 10 (5-15) 01/13/18 16:50 BUN 18 mg/dL (7-18) 01/13/18 16:50 Creatinine 0.94 mg/dL (0.55-1.02) 01/13/18 16:50 Est GFR (MDRD) Af Amer 88 mL/min (>60) 01/13/18 16:50 Est GFR (MDRD) Non-Af 73 mL/min (>60) 01/13/18 16:50 BUN/Creatinine Ratio 19.2 RATIO (10-20) 01/13/18 16:50 Glucose 107 mg/dL (74-106) H 01/13/18 16:50 Pharmacy Plan for Drug Dosing: Pharmacy Service will continue to monitor and adjust dosing as required. Medications Discontinued Medications Vancomycin HCl 1,500 mg/ (Dextrose) 280 mls @ 250 mls/hr IV RX TO DOSE ONE Stop: 01/13/18 18:06 Medications Vancomycin HCl (Vancomycin) 1,000 mg in 200 mls @ 200 mls/hr IV Q8H MILENA Follow-Up Labs: Trough Vancomycin Labs to be done on [date and time ordered]: 01/14 @ 1900
[2018-01-14] MEDS: 0.9% Normal Saline 1,000 ML 150 ML IV ×2 (00:06→08:38)
[2018-01-14] MEDS: Docusate Sodium 100 MG Capsule PO ×3 (00:10→23:05)
[2018-01-14] MEDS: Tamoxifen 10 MG Tablet 20 MG PO ×2 (00:11→23:05)
[2018-01-14] MEDS: Vitamin E 400 UNITS Capsule PO ×2 (00:12→23:06)
[2018-01-14] MEDS: Pentoxifylline 400 MG Tablet PO ×4 (00:12→23:05)
[2018-01-14] MEDS: Gabapentin 300 MG Capsule PO ×4 (01:00→17:34)
[2018-01-14 01:54] LABS: M R Staph aureus DNA By PCR Negative (Negative); Probe Check PASS; Specimen Processing Control PASS; Staph aureus DNA By PCR NEGATIVE (Negative)
[2018-01-14 03:09] VITALS: BP 109/65; PULSE 95; RESP 14; TEMP 37; O2SAT 96
[2018-01-14] MEDS: oxyCODONE 5 MG Tablet 10 MG PO ×4 (03:26→23:03)
[2018-01-14] MEDS: Levothyroxine 150 MCG Tablet PO (05:44)
[2018-01-14] MEDS: Enoxaparin 40 MG/0.4 ML Syringe SC (05:44)
[2018-01-14] MEDS: 0.9% NaCl Peripheral Flush Adult/Peds IV ×3 (07:45→14:11)
[2018-01-14 08:01] LABS: Erythrocyte Sedimentation Rate 23 mm/hr (0-20)
[2018-01-14 08:03] LABS: Hemoglobin 8.2 g/dl (12.0-15.0); Mean Corp Hgb Conc 32.8 g/gl (32-36); Mean Corpuscular Hgb 29.2 pg (27.0-32.0); Mean Platelet Vol. 7.7 fl (6.2-12.0); Platelet Count 146 K/mm3 (150-450); RBC Distribution Width CV 13.6 % (11.6-14.6); Red Blood Count 2.81 M/mm3 (4.2-5.4); White Blood Count 5.3 K/mm3 (4.4-11.0)
[2018-01-14 08:09] LABS: Scan Indicated on CBC? Y/N NO
[2018-01-14 08:14] LABS: ALB/GLOB Ratio 0.7 RATIO (0.9-2.4); AST(SGOT) 53 U/L (15-37); Alanine Aminotransfer ALT/SGPT 124 U/L (13-56); Albumin, Serum 2.4 g/dL (3.2-5.0); Alkaline Phosphatase 93 U/L (45-117); Anion Gap 7 (5-15); BUN 15 mg/dL (7-18); BUN/Creat Ratio 16.1 RATIO (10-20); Calcium,Total 7.8 mg/dL (8.5-10.1); Chloride 112 mmol/L (98-107); Creatinine, Serum 0.93 mg/dL (0.55-1.02); EST Glomerular Filtration Rate 73 mL/min (>60); Est Glom Filt Rate - Afr Amer 88 mL/min (>60); Estimated Creatinine Clearance 86.79 ml/min; Globulin 3.3 g/dL (2.2-4.2); Glucose 94 mg/dL (74-106); Potassium 3.8 mmol/L (3.5-5.1); Protein, Total 5.7 g/dL (6.4-8.2); Sodium Level 144 mmol/L (136-145)
[2018-01-14] MEDS: Acetaminophen 325 MG Tablet 650 MG PO ×2 (08:30→14:12)
[2018-01-14 08:41] VITALS: BP 118/76; PULSE 94; RESP 16; TEMP 37.1; O2SAT 96
--- NOTE | 2018-01-14 12:07 | NURSING ---
wound photo: left breast
--- NOTE | 2018-01-14 13:50 | CASEMGMT ---
JAN ESPANA Face to Face with patient for initial transition planning/care coordination assessment. JAN ESPANA introduced self and role at [facility]. Patient lying in bed, alert and oriented. Patient willing to participate in assessment and is able to answer all questions appropriately. Care providers, pharmacy, and demographics verified. Patient lives in 2 story home with and family, is able to navigate stairs. Patient has Cpap and wound vac at home. Patient has HHC services with [facility] and will need resumption of halfway for wound care and IV ATB. Patient states she has a power port in right chest. Pt wishes to discharge home, denies need for home health at this time. Pt states he has no further needs or concerns at this time. RN CM will follow-up on Wednesday to setup home IV ATBs. CM to follow for discharge planning needs that may arise. Disposition Plan: Patient to discharge home with resumption of HHC for wound care and IV ATB, family support, and follow-up plans in place.
--- NOTE | 2018-01-14 13:50 | CASEMGMT ---
JAN ESPANA Face to Face with patient for initial transition planning/care coordination assessment. RN JOVI introduced self and role at [facility]. Patient lying in bed, alert and oriented. Patient willing to participate in assessment and is able to answer all questions appropriately. Care providers, pharmacy, and demographics verified. Patient lives in 2 story home with and family, is able to navigate stairs. Patient has Cpap and wound vac at home. Patient has HHC services with [facility] and will need resumption of shelter for wound care and IV ATB. Patient states she has a power port in right chest. Pt wishes to discharge home with C. Patient states she has no further needs or concerns at this time. RN CM will follow-up on Wednesday to setup home IV ATBs. CM to follow for discharge planning needs that may arise. Disposition Plan: Patient to discharge home with resumption of HHC for wound care and IV ATB, family support, and follow-up plans in place.
[2018-01-14 14:05] VITALS: BP 124/82; PULSE 92; RESP 16; TEMP 37.2; O2SAT 97
[2018-01-14] MEDS: Ondansetron 4 MG/2 ML Vial IV (14:13)
--- NOTE | 2018-01-14 16:20 | PN_ITS ---
Patient Problems: Active and Suspected Problems (Last Reviewed 12/27/17 @ 11:54 by Mile Healy) Wound infection (Acute) Subjective: Patient is on IV antibiotic for left completion mastectomy after complicated lumpectomy on 01/13/2018 is being admitted for wound infection. Patient had fever; 100.3 Fahrenheit at the time of admission. No fever overnight. Vitals/I&O's: Vital Signs Temp Pulse Resp BP Pulse Ox 98.9 F 92 16 124/82 H 97 01/14/18 14:05 01/14/18 14:05 01/14/18 14:05 01/14/18 14:05 01/14/18 14:05 Oxygen Delivery Method Room Air Weight: 227 lb 11.8 oz Intake and Output for Last 24 Hours 01/12/18 01/13/18 01/14/18 23:59 23:59 23:59 Intake Total 3772 / 3772 Output Total 800 / 800 Balance 2972 / 2972 General: Alert, Oriented x3, Cooperative HEENT: Atraumatic, PERRLA, EOMI, Normocephalic Neck: Supple, No JVD, Negative Carotid Bruits Lungs: Clear to auscultation, Normal air movement Cardiovascular: Regular rate, No murmurs Abdomen: Bowel Sounds Present, Soft, Non Tender Extremities: No edema, Capillary Refill Less than 3 Seconds Skin: Ulcer/ Wound - Left mastectomy wound with dressing on. Dry dressing. Musculoskeletal: No Tenderness to Palpation of Joints or Extremities Neurological: Cranial nerves II-XII grossly intact Psych/Mental Status: Normal Affect, Appropriate Microbiology Past 72 Hours 01/13/18 23:10 Wound - Aerobic & Anaerobic Swabs Gram Stain - Final Laboratory Results 01/13/18 23:10: S.aureus Protein A PCR NEGATIVE, MRSA (PCR) Negative 01/14/18 07:45: WBC 5.3, RBC 2.81 L, Hgb 8.2 L, Hct 25.0 L, MCV 89.0, MCH 29.2, MCHC 32.8, RDW 13.6, RDW Differential 44.0 H, Plt Count 146 L, MPV 7.7, ESR 23 H 01/14/18 07:45: Sodium 144, Potassium 3.8, Chloride 112 H, Carbon Dioxide 25.0, Anion Gap 7, BUN 15, Creatinine 0.93, Estim Creat Clear Calc 86.79, Est GFR ( MDRD) Af Amer 88, Est GFR (MDRD) Non-Af 73, BUN/Creatinine Ratio 16.1, Glucose 94, Calcium 7.8 L, Total Bilirubin 0.30, AST 53 H, ALT 124 H, Alkaline Phosphatase 93, C-React Prot Ext Range 102.00 H, Total Protein 5.7 L, Albumin 2.4 L, Globulin 3.3, Albumin/Globulin Ratio 0.7 L, Prealbumin 12.0 L Current Medications Acetaminophen (Tylenol) 650 mg PO Q6H PRN PRN PRN Reason: Non-cardiac pain (mod-severe) Last Admin: 01/14/18 14:12 Dose: 650 mg Albuterol Sulfate (Ventolin Aerosols) 2.5 mg INHALATION Q2H PRN PRN PRN Reason: dyspnea, wheezing Diazepam (Valium) 5 mg PO 4X/DAY PRN PRN PRN Reason: SPASMS Docusate Sodium (Colace) 100 mg PO BID [facility] Last Admin: 01/14/18 08:33 Dose: 100 mg Enoxaparin Sodium (Lovenox) 40 mg SC DAILY@0600 [facility] Last Admin: 01/14/18 05:44 Dose: 40 mg Fentanyl (Duragesic Patch) 50 mcg TRANSDERM. Q3D [facility] Last Admin: 01/14/18 00:07 Dose: 50 mcg Gabapentin (Neurontin) 300 mg PO TIDCM [facility] Last Admin: 01/14/18 14:02 Dose: 300 mg Hydralazine HCl (Apresoline Iv) 10 mg IV Q4H PRN PRN PRN Reason: SBP > 160 Sodium Chloride () 1,000 mls @ 150 mls/hr IV .Q6H40M [facility] Last Admin: 01/14/18 08:38 Dose: 150 mls/hr Vancomycin HCl (Vancomycin) 1,000 mg in 200 mls @ 200 mls/hr IV Q8H [facility] Last Admin: 01/14/18 11:48 Dose: 200 mls/hr Ceftriaxone Sodium (Rocephin) 1 gm in 50 mls @ 100 mls/hr IV Q24 [facility] Levothyroxine Sodium (Synthroid) 150 mcg PO DAILY@0600 [facility] Last Admin: 01/14/18 05:44 Dose: 150 mcg Liothyronine Sodium (Cytomel) 5 mcg PO DAILY [facility] Last Admin: 01/14/18 11:48 Dose: 5 mcg Meperidine HCl (Demerol) 50 mg IV Q3H PRN PRN PRN Reason: PAIN Last Admin: 01/14/18 11:15 Dose: 50 mg Nutritional Formula (Lactose Free) (Ensure Enlive) 120 ml PO 4X/DAY [facility] Last Admin: 01/14/18 14:11 Dose: 120 ml Ondansetron HCl (Zofran) 4 mg IV Q8H PRN PRN PRN Reason: NAUSEA/VOMITING Last Admin: 01/14/18 14:13 Dose: 4 mg Oxycodone HCl (Oxyir) 10 mg PO Q4H PRN PRN PRN Reason: SEVERE PAIN (6-10/10) Last Admin: 01/14/18 14:13 Dose: 10 mg Pentoxifylline (Trental) 400 mg PO TID [facility] Last Admin: 01/14/18 14:03 Dose: 400 mg Promethazine HCl (Phenergan Tablet) 25 mg PO Q4H PRN PRN PRN Reason: NAUSEA/VOMITING Sodium Chloride () 5 - 30 ml IV UD PRN PRN Reason: SALINE FLUSH Last Admin: 01/14/18 14:11 Dose: 10 ml Tamoxifen Citrate (Nolvadex) 20 mg PO QHS [facility] Last Admin: 01/14/18 00:11 Dose: 20 mg Vitamin E (Vitamin E) 400 units PO QHS [facility] Last Admin: 01/14/18 00:12 Dose: 400 units Medical Necessity - Tobacco Use Smoking Status: Former smoker Tobacco Use: Non-smoker Assessment/Plan Active and Suspected Problems (Last Reviewed 12/27/17 @ 11:54 by Mile Healy) Wound infection (Acute) This 32-year-old female with history of Obesity, Hypothyroidism, Anxiety and Depression, Fatty Liver Disease, Narcolepsy, STEVE, Chronic Back Pain , L Breast CA (diagnosed in 03/2017) treated, initially with lumpectomy followed by chemotherapy and radiation with completion mastectomy on 01/13/2018 is being admitted wound infection with fever for 1 day. Patient had fever; 100.3 Fahrenheit at the time of admission. 1. Left CA breast (infiltrating ductal carcinoma) status post completion left mastectomy on 01/13/2018 with post op wound infection: Patient is being admitted on the [facility] floor. Surgical aspect is being taken care by Dr. Robertson. On IV vancomycin and Zosyn. Blood cultures and wound cultures are pending. Chest x- ray does not show acute cardiopulmonary findings. Previous atelectatic changes have resolved. 2. Other medical comorbidities: Hypothyroidism, anxiety and depression, chronic pain syndrome, chronic back pain, obesity grade 2, and obstructive sleep apnea: Home medication reconciliation done. TSH 11.2. Free T4 0.9 normal. I do not see previous home dose of Synthroid. Patient is started on Synthroid 150 mcg and liothyronine 5 mcg daily. Need to repeat TSH and free T4 after 4 weeks. CPAP as needed 3. DVT prophylaxis: On Lovenox and bilateral SCDs. Microbiology Past 72 Hours 01/13/18 23:10 Wound - Aerobic & Anaerobic Swabs Gram Stain - Final Laboratory Results 01/13/18 16:50: WBC 8.3, RBC 3.53 L, Hgb 10.6 L, Hct 31.4 L, MCV 89.0, MCH 30.0 , MCHC 33.8, RDW 13.0, RDW Differential 40.9, Plt Count 230, MPV 8.5, Immature Gran % (Auto) 0.100, Neut % (Auto) 78.8 H, Lymph % (Auto) 13.0 L, [place] % (Auto) 7.2, Eos % (Auto) 0.8, Baso % (Auto) 0.1, Absolute Neuts (auto) 6.5, Absolute Lymphs (auto) 1.08, Total Counted Not Reportable 01/13/18 16:50: Sodium 140, Potassium 3.6, Chloride 106, Carbon Dioxide 24.0, Anion Gap 10, BUN 18, Creatinine 0.94, Estim Creat Clear Calc 85.87, Est GFR ( MDRD) Af Amer 88, Est GFR (MDRD) Non-Af 73, BUN/Creatinine Ratio 19.2, Glucose 107 H, Calcium 8.6 01/13/18 16:50: Lactic Acid 1.0 01/13/18 16:50: Magnesium 1.7, TSH 11.20 H, Free T4 0.91 01/13/18 23:10: S.aureus Protein A PCR NEGATIVE, MRSA (PCR) Negative 01/14/18 07:45: WBC 5.3, RBC 2.81 L, Hgb 8.2 L, Hct 25.0 L, MCV 89.0, MCH 29.2, MCHC 32.8, RDW 13.6, RDW Differential 44.0 H, Plt Count 146 L, MPV 7.7, ESR 23 H 01/14/18 07:45: Sodium 144, Potassium 3.8, Chloride 112 H, Carbon Dioxide 25.0, Anion Gap 7, BUN 15, Creatinine 0.93, Estim Creat Clear Calc 86.79, Est GFR ( MDRD) Af Amer 88, Est GFR (MDRD) Non-Af 73, BUN/Creatinine Ratio 16.1, Glucose 94, Calcium 7.8 L, Total Bilirubin 0.30, AST 53 H, ALT 124 H, Alkaline Phosphatase 93, C-React Prot Ext Range 102.00 H, Total Protein 5.7 L, Albumin 2.4 L, Globulin 3.3, Albumin/Globulin Ratio 0.7 L, Prealbumin 12.0 L Clinical Impression(s) from Imaging Studies Chest X-Ray 01/13/18 16:05 IMPRESSION: No acute cardiopulmonary findings. Prior atelectatic changes have resolved with no new area of focal consolidation, substantial atelectasis or pleural effusion. Right subclavian catheter remains ending at the atriocaval junction. Obvious soft tissue deformity of the lateral margin of the left breast with overlying drainage catheter. Electronically Signed: Cici Rosario MD at 16:42 EDT , Service support , Code Visit Inpatient E&M: 44904 Subs Hosp L3
[2018-01-14] MEDS: 0.9% Normal Saline 1,000 ML 75 ML IV (17:37)
[2018-01-14 18:44] LABS: Vancomycin, Trough Level 15.4 ug/mL (5.0-15.0)
[2018-01-14 20:00] VITALS: BP 134/73; PULSE 110; RESP 18; TEMP 37.3; O2SAT 95
[2018-01-14] MEDS: proMETHazine 25 MG Tablet PO (20:01)
--- NOTE | 2018-01-14 20:15 | PCM.PN.SRG ---
Patient Problems: Active and Suspected Problems (Last Reviewed 12/27/17 @ 11:54 by Mile Healy) Wound infection (Acute) Subjective: Postop #10 Hospital day #2 Has persistent left breast mastectomy wound pain. Has needed IV analgesia for the dressing changes. - Physical Exam General: Alert, Oriented x3 HEENT: PERRLA, EOMI Neck: Supple Lungs: Clear to auscultation Cardiovascular: Regular rate, Regular Rhythm Abdomen: Soft, Non-Distended Skin: Ulcer/ Wound - Left breast mastectomy wound is stable. No bleeding. Some granulation tissue seen. Getting daily dressing changes with Aquacel Silver. Lymphatic: - - no axillary adenopathy. Neurological: Cranial nerves II-XII grossly intact Psych/Mental Status: Normal Affect, Appropriate Vital Signs Temp Pulse Resp BP Pulse Ox 99.2 F H 110 H 18 134/73 H 95 01/14/18 20:00 01/14/18 20:00 01/14/18 20:00 01/14/18 20:00 01/14/18 20:00 Oxygen Delivery Method Room Air Weight: 227 lb 11.8 oz Intake and Output for Last 24 Hours 01/12/18 01/13/18 01/14/18 23:59 23:59 23:59 Intake Total 4778 / 4778 Output Total 800 / 800 Balance 3978 / 3978 Microbiology Past 72 Hours 01/13/18 23:10 Gram Stain - Final Wound - Aerobic & Anaerobic Swabs Laboratory Tests Past 24 Hrs 01/13/18 01/14/18 01/14/18 23:10 07:45 07:45 WBC 5.3 RBC 2.81 L Hgb 8.2 L Hct 25.0 L MCV 89.0 MCH 29.2 MCHC 32.8 RDW 13.6 RDW Differential 44.0 H Plt Count 146 L MPV 7.7 ESR 23 H Sodium 144 Potassium 3.8 Chloride 112 H Carbon Dioxide 25.0 Anion Gap 7 BUN 15 Creatinine 0.93 Estim Creat Clear Calc 86.79 Est GFR (MDRD) Af Amer 88 Est GFR (MDRD) Non-Af 73 BUN/Creatinine Ratio 16.1 Glucose 94 Calcium 7.8 L Total Bilirubin 0.30 AST 53 H ALT 124 H Alkaline Phosphatase 93 C-React Prot Ext Range 102.00 H Total Protein 5.7 L Albumin 2.4 L Globulin 3.3 Albumin/Globulin Ratio 0.7 L Prealbumin 12.0 L Vancomycin Trough S.aureus Protein A PCR NEGATIVE MRSA (PCR) Negative 01/14/18 18:10 WBC RBC Hgb Hct MCV MCH MCHC RDW RDW Differential Plt Count MPV ESR Sodium Potassium Chloride Carbon Dioxide Anion Gap BUN Creatinine Estim Creat Clear Calc Est GFR (MDRD) Af Amer Est GFR (MDRD) Non-Af BUN/Creatinine Ratio Glucose Calcium Total Bilirubin AST ALT Alkaline Phosphatase C-React Prot Ext Range Total Protein Albumin Globulin Albumin/Globulin Ratio Prealbumin Vancomycin Trough 15.4 H S.aureus Protein A PCR MRSA (PCR) Medical Necessity - Tobacco Use Smoking Status: Former smoker Tobacco Use: Non-smoker Assessment/Plan Active and Suspected Problems (Last Reviewed 12/27/17 @ 11:54 by Mile Healy) Wound infection (Acute) 1. Left breast mastectomy wound infection. 2. Post-lumpectomy painful indentation scar contour deformity left lateral breast. 3. Late effect radiation left breast. 4. Left breast cancer. 5. s/p lumpectomy with chemotherapy and radiation therapy. 6. Disproportion reconstructed left breast. 7. Post-lumpectomy infected seroma left lateral breast. 8. Anemia of chronic disease, acute on chronic. Wound culture is pending. MRSA DNA PCR is negative. Currently on Vancomycin and Zosyn. Will add Ceftriaxone based on previous operative culture because it is once a day dosing in anticipation of home IV antibiotic therapy after discharge. Hgb has decreased from 10.6 to 8.2. Has anemia of chronic disease, with acute on chronic. There is no acute source of ongoing blood loss at present. Probably related to IV dilution. She is positive 4 liters on her I's/O's. Will start Iron supplementation to be continued after discharge. If the Hgb continues to drop, will need PRBC. Prealbumin is low at 12.0. Encourage nutritional supplementation with protein to help the healing process. After discharge, will [facility] and continue HBO treatments. Will determine when to restart the VAC as an outpatient.
[2018-01-15] VITALS (13 sets, daily range): BP systolic 110–144; BP diastolic 63–86; PULSE 91–115; RESP 16–18; TEMP 37.1–37.9; O2SAT 93–100
[2018-01-15] MEDS: oxyCODONE 5 MG Tablet 10 MG PO ×3 (03:36→19:37)
[2018-01-15] MEDS: Ondansetron 4 MG/2 ML Vial IV (03:40)
[2018-01-15] MEDS: diazePAM 5 MG Tablet PO ×3 (04:02→19:37)
[2018-01-15] MEDS: 0.9% NaCl Peripheral Flush Adult/Peds IV ×5 (06:19→23:40)
[2018-01-15 06:31] LABS: Absolute Lymphocyte Count 0.93 X10^3/ul (0.83-4.51); Absolute Neutrophil Count 4.2 X10^3/uL (2.0-7.7); Basophil# 0.02 X10^3/uL; Basophil% 0.4 % (0-1); Eosinophils% 1.8 % (0-5); Hematocrit 23.2 % (37-47); Hemoglobin 7.6 g/dl (12.0-15.0); Lymphocyte # 0.93 X10^3/ul (4.0); Lymphocyte % 16.3 % (19-41); Mean Corp Hgb Conc 32.8 g/gl (32-36); Mean Corpuscular Hgb 29.6 pg (27.0-32.0); Mean Corpuscular Volume 90.3 fL (81-99); Mean Platelet Vol. 7.4 fl (6.2-12.0); Monocyte# 0.42 X10^3/uL; Monocyte% 7.4 % (0-10); Neutrophil # 4.23 X10^3/uL (2.7-7.7); Neutrophil % 74.1 % (47-70); Platelet Count 175 K/mm3 (150-450); RBC Distribution Width SD 41.3 fl (35.1-43.9); Red Blood Count 2.57 M/mm3 (4.2-5.4); White Blood Count 5.7 K/mm3 (4.4-11.0)
[2018-01-15] MEDS: Enoxaparin 40 MG/0.4 ML Syringe SC (06:32)
[2018-01-15] MEDS: Levothyroxine 150 MCG Tablet PO (06:32)
[2018-01-15] MEDS: Pentoxifylline 400 MG Tablet PO ×3 (06:32→21:01)
[2018-01-15 06:39] LABS: POSITIVE COUNT NO; POSITIVE DIFFERENTIAL NO; POSITIVE MORPHOLOGY NO
[2018-01-15 06:47] LABS: Anion Gap 6 (5-15); BUN 12 mg/dL (7-18); BUN/Creat Ratio 12.7 RATIO (10-20); Calcium,Total 8.1 mg/dL (8.5-10.1); Chloride 108 mmol/L (98-107); Creatinine, Serum 0.95 mg/dL (0.55-1.02); EST Glomerular Filtration Rate 72 mL/min (>60); Est Glom Filt Rate - Afr Amer 87 mL/min (>60); Estimated Creatinine Clearance 84.97 ml/min; Glucose 99 mg/dL (74-106); Potassium 3.8 mmol/L (3.5-5.1); Sodium Level 140 mmol/L (136-145)
[2018-01-15] MEDS: 0.9% Normal Saline 1,000 ML 75 ML IV (07:24)
[2018-01-15] MEDS: Gabapentin 300 MG Capsule PO ×3 (08:38→17:31)
[2018-01-15] MEDS: Ceftriaxone 1 GM/50 ML BAG IV (10:42)
[2018-01-15] MEDS: Docusate Sodium 100 MG Capsule PO ×2 (10:43→21:01)
[2018-01-15] MEDS: Iron Polysaccharide Complex 150 MG CAPSULE PO (14:24)
[2018-01-15] MEDS: Pantoprazole Sodium 40 MG Tablet PO (14:24)
--- NOTE | 2018-01-15 15:23 | PCM.PN.HOSP ---
Patient Problems: Active and Suspected Problems (Last Reviewed 12/27/17 @ 11:54 by Mile Healy) Wound infection (Acute) Subjective: Patient temperature varies 99.2-99.7 Fahrenheit, low-grade temperature. Mild tachycardia in 100s. Wound culture preliminary shows gram-negative fede. Vitals/I&O's: Vital Signs Temp Pulse Resp BP Pulse Ox 99.7 F H 102 H 18 122/77 H 94 01/15/18 08:42 01/15/18 08:42 01/15/18 08:42 01/15/18 08:42 01/15/18 08:42 Oxygen Delivery Method Room Air Weight: 227 lb 11.8 oz Intake and Output for Last 24 Hours 01/13/18 01/14/18 01/15/18 23:59 23:59 23:59 Intake Total 5615 / 5615 2277 / 2277 Output Total 800 / 800 300 / 300 Balance 4815 / 4815 1976 General: Alert, Oriented x3, Cooperative HEENT: Atraumatic, PERRLA, EOMI, Normocephalic Neck: Supple, No JVD, Negative Carotid Bruits Lungs: Clear to auscultation, Normal air movement Cardiovascular: Regular rate, No murmurs Abdomen: Bowel Sounds Present, Soft, Non Tender Extremities: No edema, Capillary Refill Less than 3 Seconds Skin: Ulcer/ Wound - Surgical wound after completion mastectomy. Dressing is dry. Musculoskeletal: No Tenderness to Palpation of Joints or Extremities Neurological: Cranial nerves II-XII grossly intact Psych/Mental Status: Normal Affect, Appropriate Microbiology Past 72 Hours 01/13/18 23:10 Wound - Aerobic & Anaerobic Swabs Gram Stain - Final 01/13/18 23:10 Wound - Aerobic & Anaerobic Swabs Wound Culture - Preliminary Gram negative fede Laboratory Results 01/14/18 18:10: Vancomycin Trough 15.4 H 01/15/18 06:20: WBC 5.7, RBC 2.57 L, Hgb 7.6 L, Hct 23.2 L, MCV 90.3, MCH 29.6, MCHC 32.8, RDW 13.0, RDW Differential 41.3, Plt Count 175, MPV 7.4, Immature Gran % (Auto) 0.000, Neut % (Auto) 74.1 H, Lymph % (Auto) 16.3 L, [place] % (Auto) 7.4, Eos % (Auto) 1.8, Baso % (Auto) 0.4, Absolute Neuts (auto) 4.2, Absolute Lymphs (auto) 0.93, Total Counted Not Reportable 01/15/18 06:20: Sodium 140, Potassium 3.8, Chloride 108 H, Carbon Dioxide 26.0, Anion Gap 6, BUN 12, Creatinine 0.95, Estim Creat Clear Calc 84.97, Est GFR (MDRD) Af Amer 87, Est GFR (MDRD) Non-Af 72, BUN/Creatinine Ratio 12.7, Glucose 99, Calcium 8.1 L, C-React Prot Ext Range 103.00 H 01/15/18 12:10: Blood Type O NEGATIVE, Antibody Screen NEGATIVE, Crossmatch See Detail Current Medications Acetaminophen (Tylenol) 650 mg PO Q6H PRN PRN PRN Reason: Non-cardiac pain (mod-severe) Last Admin: 01/14/18 14:12 Dose: 650 mg Albuterol Sulfate (Ventolin Aerosols) 2.5 mg INHALATION Q2H PRN PRN PRN Reason: dyspnea, wheezing Diazepam (Valium) 5 mg PO 4X/DAY PRN PRN PRN Reason: SPASMS Last Admin: 01/15/18 10:50 Dose: 5 mg Docusate Sodium (Colace) 100 mg PO BID [facility] Last Admin: 01/15/18 10:43 Dose: 100 mg Enoxaparin Sodium (Lovenox) 40 mg SC DAILY@0600 [facility] Last Admin: 01/15/18 06:32 Dose: 40 mg Fentanyl (Duragesic Patch) 50 mcg TRANSDERM. Q3D [facility] Last Admin: 01/14/18 00:07 Dose: 50 mcg Gabapentin (Neurontin) 300 mg PO TIDCM [facility] Last Admin: 01/15/18 14:26 Dose: 300 mg Hydralazine HCl (Apresoline Iv) 10 mg IV Q4H PRN PRN PRN Reason: SBP > 160 Vancomycin HCl (Vancomycin) 1,000 mg in 200 mls @ 200 mls/hr IV Q8H [facility] Last Admin: 01/15/18 12:10 Dose: 200 mls/hr Ceftriaxone Sodium (Rocephin) 1 gm in 50 mls @ 100 mls/hr IV Q24 [facility] Last Admin: 01/15/18 10:42 Dose: 100 mls/hr Sodium Chloride () 1,000 mls @ 75 mls/hr IV .[id number] [facility] Last Admin: 01/15/18 07:24 Dose: 75 mls/hr Levothyroxine Sodium (Synthroid) 150 mcg PO DAILY@0600 [facility] Last Admin: 01/15/18 06:32 Dose: 150 mcg Liothyronine Sodium (Cytomel) 5 mcg PO DAILY [facility] Last Admin: 01/15/18 10:50 Dose: 5 mcg Meperidine HCl (Demerol) 50 mg IV Q3H PRN PRN PRN Reason: PAIN Last Admin: 01/15/18 12:18 Dose: 50 mg Nutritional Formula (Lactose Free) (Ensure Enlive) 120 ml PO 4X/DAY [facility] Last Admin: 01/15/18 11:05 Dose: Not Given Ondansetron HCl (Zofran) 4 mg IV Q8H PRN PRN PRN Reason: NAUSEA/VOMITING Last Admin: 01/15/18 03:40 Dose: 4 mg Oxycodone HCl (Oxyir) 10 mg PO Q4H PRN PRN PRN Reason: SEVERE PAIN (6-10/10) Last Admin: 01/15/18 07:24 Dose: 10 mg Pantoprazole Sodium (Protonix) 40 mg PO DAILY [facility] Last Admin: 01/15/18 14:24 Dose: 40 mg Pentoxifylline (Trental) 400 mg PO TID [facility] Last Admin: 01/15/18 14:28 Dose: 400 mg [facility]ysaccharide [facility] ([facility]rex 150[facility] Last Admin: 01/15/18 14:24 Dose: 150 mg Promethazine HCl (Phenergan Tablet) 25 mg PO Q4H PRN PRN PRN Reason: NAUSEA/VOMITING Last Admin: 01/14/18 20:01 Dose: 25 mg Sodium Chloride () 5 - 30 ml IV UD PRN PRN Reason: SALINE FLUSH Last Admin: 01/15/18 12:19 Dose: 10 ml Tamoxifen Citrate (Nolvadex) 20 mg PO QHS [facility] Last Admin: 01/14/18 23:05 Dose: 20 mg Vitamin E (Vitamin E) 400 units PO QHS [facility] Last Admin: 01/14/18 23:06 Dose: 400 units Medical Necessity - Tobacco Use Smoking Status: Former smoker Tobacco Use: Non-smoker Assessment/Plan Active and Suspected Problems (Last Reviewed 12/27/17 @ 11:54 by Mile Healy) Wound infection (Acute) This 32-year-old female with history of Obesity, Hypothyroidism, Anxiety and Depression, Fatty Liver Disease, Narcolepsy, STEVE, Chronic Back Pain, L Breast CA (diagnosed in 03/2017) treated, initially with lumpectomy followed by chemotherapy and radiation with completion mastectomy on 01/13/2018 is being admitted wound infection with fever for 1 day. Patient had fever; 100.3 Fahrenheit at the time of admission. 1. Left CA breast(infiltrating ductal carcinoma) status post completion left mastectomy on 01/13/2018 with post op wound infection: [facility] Surgical aspect is being taken care by Dr. Robertson. Patient temperature profile still shows low-grade fever in 99's F. On IV vancomycin and Zosyn. Blood cultures are pending. Preliminary Gram stain of wound culture shows Gram negative rods. Chest x-ray does not show acute cardiopulmonary findings. Previous atelectatic changes have resolved. 2. Other medical comorbidities: Hypothyroidism, anxiety and depression, chronic pain syndrome, chronic back pain, obesity grade 2, and obstructive sleep apnea: Home medication reconciliation done. TSH 11.2. Free T4 0.9 normal. I do not see previous home dose of Synthroid. Patient is started on Synthroid 150 mcg and liothyronine 5 mcg daily. Need to repeat TSH and free T4 after 4 weeks. CPAP as needed 3. DVT prophylaxis: On Lovenox and bilateral SCDs. Microbiology Past 72 Hours 01/13/18 23:10 Wound - Aerobic & Anaerobic Swabs Gram Stain - Final 01/13/18 23:10 Wound - Aerobic & Anaerobic Swabs Wound Culture - Preliminary Gram negative fede Laboratory Results 01/14/18 18:10: Vancomycin Trough 15.4 H 01/15/18 06:20: WBC 5.7, RBC 2.57 L, Hgb 7.6 L, Hct 23.2 L, MCV 90.3, MCH 29.6, MCHC 32.8, RDW 13.0, RDW Differential 41.3, Plt Count 175, MPV 7.4, Immature Gran % (Auto) 0.000, Neut % (Auto) 74.1 H, Lymph % (Auto) 16.3 L, [place] % (Auto) 7.4, Eos % (Auto) 1.8, Baso % (Auto) 0.4, Absolute Neuts (auto) 4.2, Absolute Lymphs (auto) 0.93, Total Counted Not Reportable 01/15/18 06:20: Sodium 140, Potassium 3.8, Chloride 108 H, Carbon Dioxide 26.0, Anion Gap 6, BUN 12, Creatinine 0.95, Estim Creat Clear Calc 84.97, Est GFR (MDRD) Af Amer 87, Est GFR (MDRD) Non-Af 72, BUN/Creatinine Ratio 12.7, Glucose 99, Calcium 8.1 L, C-React Prot Ext Range 103.00 H 01/15/18 12:10: Blood Type O NEGATIVE, Antibody Screen NEGATIVE, Crossmatch See Detail Clinical Impression(s) from Imaging Studies Chest X-Ray 01/13/18 16:05 IMPRESSION: No acute cardiopulmonary findings. Prior atelectatic changes have resolved with no new area of focal consolidation, substantial atelectasis or pleural effusion. Right subclavian catheter remains ending at the atriocaval junction. Obvious soft tissue deformity of the lateral margin of the left breast with overlying drainage catheter. Electronically Signed: Cici Rosario MD at 16:42 EDT , Service support , Code Visit Inpatient E&M: [id number] Subs Hosp L3
--- NOTE | 2018-01-15 15:26 | PN_ITS ---
Patient Problems: Active and Suspected Problems (Last Reviewed 12/27/17 @ 11:54 by Mile Healy) Wound infection (Acute) Subjective: Patient temperature varies 99.2-99.7 Fahrenheit, low-grade temperature. Mild tachycardia in 100s. Wound culture preliminary shows gram-negative fede. Vitals/I&O's: Vital Signs Temp Pulse Resp BP Pulse Ox 99.7 F H 102 H 18 122/77 H 94 01/15/18 08:42 01/15/18 08:42 01/15/18 08:42 01/15/18 08:42 01/15/18 08:42 Oxygen Delivery Method Room Air Weight: 227 lb 11.8 oz Intake and Output for Last 24 Hours 01/13/18 01/14/18 01/15/18 23:59 23:59 23:59 Intake Total 5615 / 5615 2277 / 2277 Output Total 800 / 800 300 / 300 Balance 4815 / 4815 1976 General: Alert, Oriented x3, Cooperative HEENT: Atraumatic, PERRLA, EOMI, Normocephalic Neck: Supple, No JVD, Negative Carotid Bruits Lungs: Clear to auscultation, Normal air movement Cardiovascular: Regular rate, No murmurs Abdomen: Bowel Sounds Present, Soft, Non Tender Extremities: No edema, Capillary Refill Less than 3 Seconds Skin: Ulcer/ Wound - Surgical wound after completion mastectomy. Dressing is dry. Musculoskeletal: No Tenderness to Palpation of Joints or Extremities Neurological: Cranial nerves II-XII grossly intact Psych/Mental Status: Normal Affect, Appropriate Microbiology Past 72 Hours 01/13/18 23:10 Wound - Aerobic & Anaerobic Swabs Gram Stain - Final 01/13/18 23:10 Wound - Aerobic & Anaerobic Swabs Wound Culture - Preliminary Gram negative fede Laboratory Results 01/14/18 18:10: Vancomycin Trough 15.4 H 01/15/18 06:20: WBC 5.7, RBC 2.57 L, Hgb 7.6 L, Hct 23.2 L, MCV 90.3, MCH 29.6, MCHC 32.8, RDW 13.0, RDW Differential 41.3, Plt Count 175, MPV 7.4, Immature Gran % (Auto) 0.000, Neut % (Auto) 74.1 H, Lymph % (Auto) 16.3 L, [place] % (Auto) 7.4, Eos % (Auto) 1.8, Baso % (Auto) 0.4, Absolute Neuts (auto) 4.2, Absolute Lymphs (auto) 0.93, Total Counted Not Reportable 01/15/18 06:20: Sodium 140, Potassium 3.8, Chloride 108 H, Carbon Dioxide 26.0, Anion Gap 6, BUN 12, Creatinine 0.95, Estim Creat Clear Calc 84.97, Est GFR ( MDRD) Af Amer 87, Est GFR (MDRD) Non-Af 72, BUN/Creatinine Ratio 12.7, Glucose 99, Calcium 8.1 L, C-React Prot Ext Range 103.00 H 01/15/18 12:10: Blood Type O NEGATIVE, Antibody Screen NEGATIVE, Crossmatch See Detail Current Medications Acetaminophen (Tylenol) 650 mg PO Q6H PRN PRN PRN Reason: Non-cardiac pain (mod-severe) Last Admin: 01/14/18 14:12 Dose: 650 mg Albuterol Sulfate (Ventolin Aerosols) 2.5 mg INHALATION Q2H PRN PRN PRN Reason: dyspnea, wheezing Diazepam (Valium) 5 mg PO 4X/DAY PRN PRN PRN Reason: SPASMS Last Admin: 01/15/18 10:50 Dose: 5 mg Docusate Sodium (Colace) 100 mg PO BID [facility] Last Admin: 01/15/18 10:43 Dose: 100 mg Enoxaparin Sodium (Lovenox) 40 mg SC DAILY@0600 [facility] Last Admin: 01/15/18 06:32 Dose: 40 mg Fentanyl (Duragesic Patch) 50 mcg TRANSDERM. Q3D [facility] Last Admin: 01/14/18 00:07 Dose: 50 mcg Gabapentin (Neurontin) 300 mg PO TIDCM [facility] Last Admin: 01/15/18 14:26 Dose: 300 mg Hydralazine HCl (Apresoline Iv) 10 mg IV Q4H PRN PRN PRN Reason: SBP > 160 Vancomycin HCl (Vancomycin) 1,000 mg in 200 mls @ 200 mls/hr IV Q8H [facility] Last Admin: 01/15/18 12:10 Dose: 200 mls/hr Ceftriaxone Sodium (Rocephin) 1 gm in 50 mls @ 100 mls/hr IV Q24 [facility] Last Admin: 01/15/18 10:42 Dose: 100 mls/hr Sodium Chloride () 1,000 mls @ 75 mls/hr IV .[id number] [facility] Last Admin: 01/15/18 07:24 Dose: 75 mls/hr Levothyroxine Sodium (Synthroid) 150 mcg PO DAILY@0600 [facility] Last Admin: 01/15/18 06:32 Dose: 150 mcg Liothyronine Sodium (Cytomel) 5 mcg PO DAILY [facility] Last Admin: 01/15/18 10:50 Dose: 5 mcg Meperidine HCl (Demerol) 50 mg IV Q3H PRN PRN PRN Reason: PAIN Last Admin: 01/15/18 12:18 Dose: 50 mg Nutritional Formula (Lactose Free) (Ensure Enlive) 120 ml PO 4X/DAY [facility] Last Admin: 01/15/18 11:05 Dose: Not Given Ondansetron HCl (Zofran) 4 mg IV Q8H PRN PRN PRN Reason: NAUSEA/VOMITING Last Admin: 01/15/18 03:40 Dose: 4 mg Oxycodone HCl (Oxyir) 10 mg PO Q4H PRN PRN PRN Reason: SEVERE PAIN (6-10/10) Last Admin: 01/15/18 07:24 Dose: 10 mg Pantoprazole Sodium (Protonix) 40 mg PO DAILY [facility] Last Admin: 01/15/18 14:24 Dose: 40 mg Pentoxifylline (Trental) 400 mg PO TID [facility] Last Admin: 01/15/18 14:28 Dose: 400 mg [facility]accharide [facility] ([facility] Admin: 01/15/18 14:24 Dose: 150 mg Promethazine HCl (Phenergan Tablet) 25 mg PO Q4H PRN PRN PRN Reason: NAUSEA/VOMITING Last Admin: 01/14/18 20:01 Dose: 25 mg Sodium Chloride () 5 - 30 ml IV UD PRN PRN Reason: SALINE FLUSH Last Admin: 01/15/18 12:19 Dose: 10 ml Tamoxifen Citrate (Nolvadex) 20 mg PO QHS [facility] Last Admin: 01/14/18 23:05 Dose: 20 mg Vitamin E (Vitamin E) 400 units PO QHS [facility] Last Admin: 01/14/18 23:06 Dose: 400 units Medical Necessity - Tobacco Use Smoking Status: Former smoker Tobacco Use: Non-smoker Assessment/Plan Active and Suspected Problems (Last Reviewed 12/27/17 @ 11:54 by Mile Healy) Wound infection (Acute) This 32-year-old female with history of Obesity, Hypothyroidism, Anxiety and Depression, Fatty Liver Disease, Narcolepsy, STEVE, Chronic Back Pain , L Breast CA (diagnosed in 03/2017) treated, initially with lumpectomy followed by chemotherapy and radiation with completion mastectomy on 01/13/2018 is being admitted wound infection with fever for 1 day. Patient had fever; 100.3 Fahrenheit at the time of admission. 1. Left CA breast(infiltrating ductal carcinoma) status post completion left mastectomy on 01/13/2018 with post op wound infection: [facility] Surgical aspect is being taken care by Dr. Robertson. Patient temperature profile still shows low-grade fever in 99's F. On IV vancomycin and Zosyn. Blood cultures are pending. Preliminary Gram stain of wound culture shows Gram negative rods. Chest x-ray does not show acute cardiopulmonary findings. Previous atelectatic changes have resolved. 2. Other medical comorbidities: Hypothyroidism, anxiety and depression, chronic pain syndrome, chronic back pain, obesity grade 2, and obstructive sleep apnea: Home medication reconciliation done. TSH 11.2. Free T4 0.9 normal. I do not see previous home dose of Synthroid. Patient is started on Synthroid 150 mcg and liothyronine 5 mcg daily. Need to repeat TSH and free T4 after 4 weeks. CPAP as needed 3. DVT prophylaxis: On Lovenox and bilateral SCDs. Microbiology Past 72 Hours 01/13/18 23:10 Wound - Aerobic & Anaerobic Swabs Gram Stain - Final 01/13/18 23:10 Wound - Aerobic & Anaerobic Swabs Wound Culture - Preliminary Gram negative fede Laboratory Results 01/14/18 18:10: Vancomycin Trough 15.4 H 01/15/18 06:20: WBC 5.7, RBC 2.57 L, Hgb 7.6 L, Hct 23.2 L, MCV 90.3, MCH 29.6, MCHC 32.8, RDW 13.0, RDW Differential 41.3, Plt Count 175, MPV 7.4, Immature Gran % (Auto) 0.000, Neut % (Auto) 74.1 H, Lymph % (Auto) 16.3 L, [place] % (Auto) 7.4, Eos % (Auto) 1.8, Baso % (Auto) 0.4, Absolute Neuts (auto) 4.2, Absolute Lymphs (auto) 0.93, Total Counted Not Reportable 01/15/18 06:20: Sodium 140, Potassium 3.8, Chloride 108 H, Carbon Dioxide 26.0, Anion Gap 6, BUN 12, Creatinine 0.95, Estim Creat Clear Calc 84.97, Est GFR ( MDRD) Af Amer 87, Est GFR (MDRD) Non-Af 72, BUN/Creatinine Ratio 12.7, Glucose 99, Calcium 8.1 L, C-React Prot Ext Range 103.00 H 01/15/18 12:10: Blood Type O NEGATIVE, Antibody Screen NEGATIVE, Crossmatch See Detail Clinical Impression(s) from Imaging Studies Chest X-Ray 01/13/18 16:05 IMPRESSION: No acute cardiopulmonary findings. Prior atelectatic changes have resolved with no new area of focal consolidation, substantial atelectasis or pleural effusion. Right subclavian catheter remains ending at the atriocaval junction. Obvious soft tissue deformity of the lateral margin of the left breast with overlying drainage catheter. Electronically Signed: Cici Rosario MD at 16:42 EDT , Service support , Code Visit Inpatient E&M: [id number] Subs Hosp L3
--- NOTE | 2018-01-15 15:35 | PCM.PN.SRG ---
Patient Problems: Active and Suspected Problems (Last Reviewed 12/27/17 @ 11:54 by Mile Healy) Wound infection (Acute) Subjective: Postop #11 Hospital day #3 Patient feels tired. Has persistent left breast mastectomy wound pain. - Physical Exam General: Alert, Oriented x3 HEENT: PERRLA, EOMI Neck: Supple Lungs: Clear to auscultation Cardiovascular: Regular rate, Regular Rhythm Abdomen: Soft, Non-Distended Skin: Ulcer/ Wound - left breast mastectomy wound is stable. No bleeding. No pus seen. Mild exudate noted. Continue daily dressing changes with Aquacel Silver. Lymphatic: - - no axillary adenopathy. Neurological: Cranial nerves II-XII grossly intact Psych/Mental Status: Normal Affect, Appropriate Vital Signs Temp Pulse Resp BP Pulse Ox 99.7 F H 102 H 18 122/77 H 94 01/15/18 08:42 01/15/18 08:42 01/15/18 08:42 01/15/18 08:42 01/15/18 08:42 Oxygen Delivery Method Room Air Weight: 227 lb 11.8 oz Intake and Output for Last 24 Hours 01/13/18 01/14/18 01/15/18 23:59 23:59 23:59 Intake Total 5615 / 5615 2277 / 2277 Output Total 800 / 800 300 / 300 Balance 4815 / 4815 1976 Microbiology Past 72 Hours 01/13/18 23:10 Gram Stain - Final Wound - Aerobic & Anaerobic Swabs Wound Culture - Preliminary Gram negative fede Laboratory Tests Past 24 Hrs 01/14/18 01/15/18 01/15/18 18:10 06:20 06:20 WBC 5.7 RBC 2.57 L Hgb 7.6 L Hct 23.2 L MCV 90.3 MCH 29.6 MCHC 32.8 RDW 13.0 RDW Differential 41.3 Plt Count 175 MPV 7.4 Immature Gran % (Auto) 0.000 Neut % (Auto) 74.1 H Lymph % (Auto) 16.3 L [place] % (Auto) 7.4 Eos % (Auto) 1.8 Baso % (Auto) 0.4 Absolute Neuts (auto) 4.2 Absolute Lymphs (auto) 0.93 Total Counted Not Reportable Sodium 140 Potassium 3.8 Chloride 108 H Carbon Dioxide 26.0 Anion Gap 6 BUN 12 Creatinine 0.95 Estim Creat Clear Calc 84.97 Est GFR (MDRD) Af Amer 87 Est GFR (MDRD) Non-Af 72 BUN/Creatinine Ratio 12.7 Glucose 99 Calcium 8.1 L C-React Prot Ext Range 103.00 H Vancomycin Trough 15.4 H Blood Type Antibody Screen Crossmatch 01/15/18 12:10 WBC RBC Hgb Hct MCV MCH MCHC RDW RDW Differential Plt Count MPV Immature Gran % (Auto) Neut % (Auto) Lymph % (Auto) [place] % (Auto) Eos % (Auto) Baso % (Auto) Absolute Neuts (auto) Absolute Lymphs (auto) Total Counted Sodium Potassium Chloride Carbon Dioxide Anion Gap BUN Creatinine Estim Creat Clear Calc Est GFR (MDRD) Af Amer Est GFR (MDRD) Non-Af BUN/Creatinine Ratio Glucose Calcium C-React Prot Ext Range Vancomycin Trough Blood Type O NEGATIVE Antibody Screen NEGATIVE Crossmatch See Detail Medical Necessity - Tobacco Use Smoking Status: Former smoker Tobacco Use: Non-smoker Assessment/Plan Active and Suspected Problems (Last Reviewed 12/27/17 @ 11:54 by Mile Healy) Wound infection (Acute) 1. Left breast mastectomy wound infection. 2. Post-lumpectomy painful indentation scar contour deformity left lateral breast. 3. Late effect radiation left breast. 4. Left breast cancer. 5. s/p lumpectomy with chemotherapy and radiation therapy. 6. Disproportion reconstructed left breast. 7. Post-lumpectomy infected seroma left lateral breast. 8. Anemia of chronic disease, acute on chronic. Wound culture shows Gram negative fede. Will change Ceftriaxone to Cefepime. Will restart the Zosyn. Will stop the Vancomycin. She has a port. Will be discharged on IV antibiotics. Will continue with daily dressing changes with Aquacel Silver. VAC on hold for now. Hgb decreased to 7.6. Has anemia of chronic disease, with acute on chronic. There is no acute source of ongoing blood loss. Probably related to IV dilution. Will transfuse PRBC. She states she has had epigastric discomfort since taking her Tamoxifen. She has seen Dr. Moseley who is planning endoscopy as an outpatient. If she becomes more symptomatic, will have him evaluate her as an inpatient for endoscopy. Will start Protonix in the meantime. Prealbumin is low at 12.0. Encourage nutritional supplementation with protein to help the healing process. After discharge [facility] and continue HBO treatments. Will determine when to restart the VAC as an outpatient.
[2018-01-15 16:37] LABS: Hematocrit 26.2 % (37-47); Hemoglobin 8.6 g/dl (12.0-15.0)
[2018-01-15] MEDS: Piperacil/Tazobactam 3.375 GM/50 ML ML IV ×2 (17:31→22:45)
[2018-01-15] MEDS: Vitamin E 400 UNITS Capsule PO (21:01)
[2018-01-15] MEDS: Tamoxifen 10 MG Tablet 20 MG PO (21:02)
[2018-01-16] VITALS (10 sets, daily range): BP systolic 113–130; BP diastolic 67–86; PULSE 85–110; RESP 16–18; TEMP 37.1–37.8; O2SAT 95–98
[2018-01-16] MEDS: oxyCODONE 5 MG Tablet 10 MG PO ×4 (01:01→21:05)
[2018-01-16] MEDS: 0.9% Normal Saline 1,000 ML 75 ML IV ×2 (01:46→18:01)
[2018-01-16] MEDS: 0.9% NaCl Peripheral Flush Adult/Peds IV ×5 (04:58→14:20)
[2018-01-16] MEDS: Piperacil/Tazobactam 3.375 GM/50 ML ML IV ×3 (04:58→22:37)
[2018-01-16] MEDS: Enoxaparin 40 MG/0.4 ML Syringe SC (05:09)
[2018-01-16] MEDS: Levothyroxine 150 MCG Tablet PO (05:09)
[2018-01-16] MEDS: Pentoxifylline 400 MG Tablet PO ×3 (05:11→21:08)
[2018-01-16 05:33] LABS: Absolute Lymphocyte Count 0.98 X10^3/ul (0.83-4.51); Absolute Neutrophil Count 4.1 X10^3/uL (2.0-7.7); Basophil# 0.01 X10^3/uL; Basophil% 0.2 % (0-1); Eosinophil# 0.11 X10^3/uL; Eosinophils% 1.9 % (0-5); Hematocrit 26.1 % (37-47); Hemoglobin 8.7 g/dl (12.0-15.0); Lymphocyte # 0.98 X10^3/ul (4.0); Lymphocyte % 17.2 % (19-41); Mean Corp Hgb Conc 33.3 g/gl (32-36); Mean Corpuscular Hgb 29.5 pg (27.0-32.0); Mean Corpuscular Volume 88.5 fL (81-99); Mean Platelet Vol. 7.9 fl (6.2-12.0); Monocyte# 0.46 X10^3/uL; Monocyte% 8.1 % (0-10); Neutrophil # 4.14 X10^3/uL (2.7-7.7); Neutrophil % 72.4 % (47-70); Platelet Count 193 K/mm3 (150-450); RBC Distribution Width CV 13.3 % (11.6-14.6); RBC Distribution Width SD 40.9 fl (35.1-43.9); Red Blood Count 2.95 M/mm3 (4.2-5.4); White Blood Count 5.7 K/mm3 (4.4-11.0)
[2018-01-16 05:39] LABS: POSITIVE COUNT NO; POSITIVE DIFFERENTIAL NO; POSITIVE MORPHOLOGY NO
[2018-01-16 05:49] LABS: Anion Gap 8 (5-15); BUN 11 mg/dL (7-18); BUN/Creat Ratio 11.1 RATIO (10-20); Calcium,Total 7.9 mg/dL (8.5-10.1); Chloride 109 mmol/L (98-107); Creatinine, Serum 0.99 mg/dL (0.55-1.02); EST Glomerular Filtration Rate 68 mL/min (>60); Est Glom Filt Rate - Afr Amer 83 mL/min (>60); Estimated Creatinine Clearance 81.53 ml/min; Glucose 95 mg/dL (74-106); Potassium 3.6 mmol/L (3.5-5.1); Sodium Level 142 mmol/L (136-145)
[2018-01-16] MEDS: Gabapentin 300 MG Capsule PO ×3 (07:42→18:02)
[2018-01-16] MEDS: Iron Polysaccharide Complex 150 MG CAPSULE PO (07:43)
[2018-01-16] MEDS: diazePAM 5 MG Tablet PO (08:28)
[2018-01-16] MEDS: Ondansetron 4 MG/2 ML Vial IV (08:29)
[2018-01-16] MEDS: Pantoprazole Sodium 40 MG Tablet PO (09:47)
[2018-01-16] MEDS: Docusate Sodium 100 MG Capsule PO ×2 (09:47→21:08)
--- NOTE | 2018-01-16 14:45 | PN_ITS ---
Patient Problems: Active and Suspected Problems (Last Reviewed 12/27/17 @ 11:54 by Mile Healy) Wound infection (Acute) Subjective: Had a change of dressing by the nurse. Discussed with the nurse and wound of the bed looks beefy red with healthy examination tissue. Cuff temperature is since yesterday night. On 01/15/2018 her temperature was 99 2 T-max 100.3 Fahrenheit possible related to inflammatory reaction of wound healing. Vitals/I&O's: Vital Signs Temp Pulse Resp BP Pulse Ox 99.7 F H 100 16 115/74 98 01/16/18 14:26 01/16/18 14:26 01/16/18 14:26 01/16/18 14:26 01/16/18 14:26 Oxygen Delivery Method Room Air Weight: 227 lb 11.8 oz Intake and Output for Last 24 Hours 01/14/18 01/15/18 01/16/18 23:59 23:59 23:59 Intake Total 5615 / 5615 3927 / 3927 1050 / 1050 Output Total 800 / 800 1100 / 1100 980 / 980 Balance 4815 / 4815 2827 / 2827 70 / 70 General: Alert, Oriented x3, Cooperative HEENT: Atraumatic, PERRLA, EOMI, Normocephalic Neck: Supple, No JVD, Negative Carotid Bruits Lungs: Diminished Cardiovascular: Regular rate, No murmurs Abdomen: Bowel Sounds Present, Soft, Non Tender, Non-Distended Extremities: No edema, Capillary Refill Less than 3 Seconds Skin: Ulcer/ Wound - Left breast surgical wound; beef. Motion tissue as per the nurse. Musculoskeletal: No Tenderness to Palpation of Joints or Extremities Neurological: Cranial nerves II-XII grossly intact Psych/Mental Status: Normal Affect, Appropriate Microbiology Past 72 Hours 01/13/18 23:10 Wound - Aerobic & Anaerobic Swabs Gram Stain - Final 01/13/18 23:10 Wound - Aerobic & Anaerobic Swabs Wound Culture - Preliminary Acinetobacter radioresistens Laboratory Results 01/15/18 12:10: Blood Type O NEGATIVE, Antibody Screen NEGATIVE, Crossmatch See Detail 01/15/18 16:20: Hgb 8.6 L, Hct 26.2 L 01/16/18 05:05: WBC 5.7, RBC 2.95 L, Hgb 8.7 L, Hct 26.1 L, MCV 88.5, MCH 29.5, MCHC 33.3, RDW 13.3, RDW Differential 40.9, Plt Count 193, MPV 7.9, Immature Gran % (Auto) 0.200, Neut % (Auto) 72.4 H, Lymph % (Auto) 17.2 L, [place] % (Auto) 8.1, Eos % (Auto) 1.9, Baso % (Auto) 0.2, Absolute Neuts (auto) 4.1, Absolute Lymphs (auto) 0.98, Total Counted Not Reportable 01/16/18 05:05: Sodium 142, Potassium 3.6, Chloride 109 H, Carbon Dioxide 25.0, Anion Gap 8, BUN 11, Creatinine 0.99, Estim Creat Clear Calc 81.53, Est GFR ( MDRD) Af Amer 83, Est GFR (MDRD) Non-Af 68, BUN/Creatinine Ratio 11.1, Glucose 95, Calcium 7.9 L Current Medications Acetaminophen (Tylenol) 650 mg PO Q6H PRN PRN PRN Reason: Non-cardiac pain (mod-severe) Last Admin: 01/14/18 14:12 Dose: 650 mg Albuterol Sulfate (Ventolin Aerosols) 2.5 mg INHALATION Q2H PRN PRN PRN Reason: dyspnea, wheezing Diazepam (Valium) 5 mg PO 4X/DAY PRN PRN PRN Reason: SPASMS Last Admin: 01/16/18 08:28 Dose: 5 mg Docusate Sodium (Colace) 100 mg PO BID COUNT INCLUDES THE [facility] Last Admin: 01/16/18 09:47 Dose: 100 mg Enoxaparin Sodium (Lovenox) 40 mg SC DAILY@0600 COUNT INCLUDES THE [facility] Last Admin: 01/16/18 05:09 Dose: 40 mg Fentanyl (Duragesic Patch) 50 mcg TRANSDERM. Q3D COUNT INCLUDES THE [facility] Last Admin: 01/14/18 00:07 Dose: 50 mcg Gabapentin (Neurontin) 300 mg PO TIDCM COUNT INCLUDES THE [facility] Last Admin: 01/16/18 13:56 Dose: 300 mg Hydralazine HCl (Apresoline Iv) 10 mg IV Q4H PRN PRN PRN Reason: SBP > 160 Sodium Chloride () 1,000 mls @ 75 mls/hr IV .[id number] COUNT INCLUDES THE [facility] Last Admin: 01/16/18 01:46 Dose: 75 mls/hr Cefepime HCl 2 gm/ Sodium (Chloride) 100 mls @ 200 mls/hr IV Q12 COUNT INCLUDES THE [facility] Last Admin: 01/16/18 09:44 Dose: 200 mls/hr Piperacillin Sod/Tazobactam Sod (Zosyn) 3.375 gm in 50 mls @ 12.5 mls/hr IV Q8 COUNT INCLUDES THE [facility] Last Admin: 01/16/18 13:54 Dose: 12.5 mls/hr Levothyroxine Sodium (Synthroid) 150 mcg PO DAILY@0600 COUNT INCLUDES THE [facility] Last Admin: 01/16/18 05:09 Dose: 150 mcg Liothyronine Sodium (Cytomel) 5 mcg PO DAILY COUNT INCLUDES THE [facility] Last Admin: 01/16/18 09:48 Dose: 5 mcg Meperidine HCl (Demerol) 75 mg IV Q3H PRN PRN PRN Reason: PAIN Last Admin: 01/16/18 14:20 Dose: 75 mg Nutritional Formula (Lactose Free) (Ensure Enlive) 120 ml PO 4X/DAY COUNT INCLUDES THE [facility] Last Admin: 01/16/18 13:57 Dose: Not Given Ondansetron HCl (Zofran) 4 mg IV Q8H PRN PRN PRN Reason: NAUSEA/VOMITING Last Admin: 01/16/18 08:29 Dose: 4 mg Oxycodone HCl (Oxyir) 10 mg PO Q4H PRN PRN PRN Reason: SEVERE PAIN (6-10/10) Last Admin: 01/16/18 08:28 Dose: 10 mg Pantoprazole Sodium (Protonix) 40 mg PO DAILY COUNT INCLUDES THE [facility] Last Admin: 01/16/18 09:47 Dose: 40 mg Pentoxifylline (Trental) 400 mg PO TID COUNT INCLUDES THE [facility] Last Admin: 01/16/18 13:56 Dose: 400 mg Polysaccharide Iron Complex (Ferrex 150) [facility] Last Admin: 01/16/18 07:43 Dose: 150 mg Promethazine HCl (Phenergan Tablet) 25 mg PO Q4H PRN PRN PRN Reason: NAUSEA/VOMITING Last Admin: 01/14/18 20:01 Dose: 25 mg Sodium Chloride () 5 - 30 ml IV UD PRN PRN Reason: SALINE FLUSH Last Admin: 01/16/18 14:20 Dose: 10 ml Tamoxifen Citrate (Nolvadex) 20 mg PO QHS COUNT INCLUDES THE [facility] Last Admin: 01/15/18 21:02 Dose: 20 mg Vitamin E (Vitamin E) 400 units PO QHS COUNT INCLUDES THE [facility] Last Admin: 01/15/18 21:01 Dose: 400 units Medical Necessity - Tobacco Use Smoking Status: Former smoker Tobacco Use: Non-smoker Assessment/Plan Active and Suspected Problems (Last Reviewed 12/27/17 @ 11:54 by Mile Healy) Wound infection (Acute) This 32-year-old female with history of Obesity, Hypothyroidism, Anxiety and Depression, Fatty Liver Disease, Narcolepsy, STEVE, Chronic Back Pain , L Breast CA (diagnosed in 03/2017) treated, initially with lumpectomy followed by chemotherapy and radiation with completion mastectomy on 01/13/2018 is being admitted wound infection with fever for 1 day. 1. Left CA breast(infiltrating ductal carcinoma) status post completion left mastectomy on 01/13/2018 with post op wound infection: Patient is being admitted on the [facility] floor. Surgical aspect is being taken care by Dr. Robertson. Patient temperature profile still shows low-grade fever in 99's F. On IV vancomycin and Zosyn. Blood cultures are pending. Preliminary wound culture shows Acinetobacter. Patient had recent antibiotic changed by Dr. Robertson. Currently on IV Zosyn and cefepime. IV vancomycin and ceftriaxone discontinued. Chest x-ray does not show acute cardiopulmonary findings. Previous atelectatic changes have resolved. 2. Other medical comorbidities: Hypothyroidism, anxiety and depression, chronic pain syndrome, chronic back pain, obesity grade 2, and obstructive sleep apnea: Home medication reconciliation done. TSH 11.2. Free T4 0.9 normal. I do not see previous home dose of Synthroid. Patient is started on Synthroid 150 mcg and liothyronine 5 mcg daily. Need to repeat TSH and free T4 after 4 weeks. CPAP as needed 3. DVT prophylaxis: On Lovenox and bilateral SCDs. Microbiology Past 72 Hours 01/13/18 23:10 Wound - Aerobic & Anaerobic Swabs Gram Stain - Final 01/13/18 23:10 Wound - Aerobic & Anaerobic Swabs Wound Culture - Preliminary Acinetobacter radioresistens 01/13/18 17:00 Blood Culture (Wb) - Anticubital Right Blood Culture - Preliminary No growth in 48 hours. 01/13/18 16:50 Blood Culture (Wb) - Port Blood Culture - Preliminary No growth in 48 hours. Laboratory Results 01/15/18 12:10: Blood Type O NEGATIVE, Antibody Screen NEGATIVE, Crossmatch See Detail 01/15/18 16:20: Hgb 8.6 L, Hct 26.2 L 01/16/18 05:05: WBC 5.7, RBC 2.95 L, Hgb 8.7 L, Hct 26.1 L, MCV 88.5, MCH 29.5, MCHC 33.3, RDW 13.3, RDW Differential 40.9, Plt Count 193, MPV 7.9, Immature Gran % (Auto) 0.200, Neut % (Auto) 72.4 H, Lymph % (Auto) 17.2 L, [place] % (Auto) 8.1, Eos % (Auto) 1.9, Baso % (Auto) 0.2, Absolute Neuts (auto) 4.1, Absolute Lymphs (auto) 0.98, Total Counted Not Reportable 01/16/18 05:05: Sodium 142, Potassium 3.6, Chloride 109 H, Carbon Dioxide 25.0, Anion Gap 8, BUN 11, Creatinine 0.99, Estim Creat Clear Calc 81.53, Est GFR ( MDRD) Af Amer 83, Est GFR (MDRD) Non-Af 68, BUN/Creatinine Ratio 11.1, Glucose 95, Calcium 7.9 L Clinical Impression(s) from Imaging Studies Chest X-Ray 01/13/18 16:05 IMPRESSION: No acute cardiopulmonary findings. Prior atelectatic changes have resolved with no new area of focal consolidation, substantial atelectasis or pleural effusion. Right subclavian catheter remains ending at the atriocaval junction. Obvious soft tissue deformity of the lateral margin of the left breast with overlying drainage catheter. Electronically Signed: Cici Rosario MD at 16:42 EDT , Service support , Code Visit Inpatient E&M: 17694 Subs Hosp L2
[2018-01-16] MEDS: Acetaminophen 325 MG Tablet 650 MG PO (21:06)
[2018-01-16] MEDS: Vitamin E 400 UNITS Capsule PO (21:09)
[2018-01-16] MEDS: Tamoxifen 10 MG Tablet 20 MG PO (21:10)
--- NOTE | 2018-01-16 21:53 | PCM.PN.SRG ---
Patient Problems: Active and Suspected Problems (Last Reviewed 12/27/17 @ 11:54 by Mile Healy) Wound infection (Acute) Subjective: Postop #12 Hospital day #4 Patient feels tired. Needs IV analgesia for the Aquacel Silver dressing changes. - Physical Exam General: Alert, Oriented x3 HEENT: PERRLA, EOMI Neck: Supple Lungs: Clear to auscultation Cardiovascular: Regular rate, Regular Rhythm Abdomen: Soft, Non-Distended Skin: Ulcer/ Wound - left breast mastectomy wound is stable. No bleeding. No pus seen. Continue daily dressing changes with Aquacel Silver. Lymphatic: - - no axillary adenopathy. Neurological: Cranial nerves II-XII grossly intact Psych/Mental Status: Normal Affect, Appropriate Vital Signs Temp Pulse Resp BP Pulse Ox 100.1 F H 91 18 130/86 H 95 01/16/18 20:59 01/16/18 20:59 01/16/18 20:59 01/16/18 20:59 01/16/18 20:59 Oxygen Delivery Method Room Air Weight: 227 lb 11.8 oz Intake and Output for Last 24 Hours 01/14/18 01/15/18 01/16/18 23:59 23:59 23:59 Intake Total 5615 / 5615 3927 / 3927 1050 / 1050 Output Total 800 / 800 1100 / 1100 980 / 980 Balance 4815 / 4815 2827 / 2827 70 / 70 Microbiology Past 72 Hours 01/13/18 23:10 Gram Stain - Final Wound - Aerobic & Anaerobic Swabs Wound Culture - Preliminary Acinetobacter radioresistens Laboratory Tests Past 24 Hrs 01/15/18 01/16/18 01/16/18 12:10 05:05 05:05 WBC 5.7 RBC 2.95 L Hgb 8.7 L Hct 26.1 L MCV 88.5 MCH 29.5 MCHC 33.3 RDW 13.3 RDW Differential 40.9 Plt Count 193 MPV 7.9 Immature Gran % (Auto) 0.200 Neut % (Auto) 72.4 H Lymph % (Auto) 17.2 L [place] % (Auto) 8.1 Eos % (Auto) 1.9 Baso % (Auto) 0.2 Absolute Neuts (auto) 4.1 Absolute Lymphs (auto) 0.98 Total Counted Not Reportable Sodium 142 Potassium 3.6 Chloride 109 H Carbon Dioxide 25.0 Anion Gap 8 BUN 11 Creatinine 0.99 Estim Creat Clear Calc 81.53 Est GFR (MDRD) Af Amer 83 Est GFR (MDRD) Non-Af 68 BUN/Creatinine Ratio 11.1 Glucose 95 Calcium 7.9 L Blood Type O NEGATIVE Antibody Screen NEGATIVE Crossmatch See Detail Medical Necessity - Tobacco Use Smoking Status: Former smoker Tobacco Use: Non-smoker Assessment/Plan Active and Suspected Problems (Last Reviewed 12/27/17 @ 11:54 by Mile Healy) Wound infection (Acute) 1. Left breast mastectomy wound infection. 2. Post-lumpectomy painful indentation scar contour deformity left lateral breast. 3. Late effect radiation left breast. 4. Left breast cancer. 5. s/p lumpectomy with chemotherapy and radiation therapy. 6. Disproportion reconstructed left breast. 7. Post-lumpectomy infected seroma left lateral breast. 8. Anemia of chronic disease, acute on chronic. Wound culture shows Acinetobacter radioresistens. MRSA DNA PCR is negative. Currently on Cefepime and Zosyn. Sensitivity is pending. She has a port. Will be discharged on IV antibiotics. Based on the sensitivity, an ID consult may be needed to help with IV antibiotic management at home. Will continue with daily dressing changes with Aquacel Silver. VAC on hold for now. Hgb increased to 8.7 after the PRBC. Has anemia of chronic disease, with acute on chronic. There is no acute source of ongoing blood loss. Probably related to IV dilution. Iron supplementation has been started. She states she has had epigastric discomfort since taking her Tamoxifen. She has seen Dr. Moseley who is planning endoscopy as an outpatient. If she becomes more symptomatic, will have him evaluate her as an inpatient for endoscopy. Protonix has been started in the meantime. Prealbumin is low at 12.0. Encourage nutritional supplementation with protein to help the healing process. After discharge will [facility]up [facility] and continue HBO treatments. Will determine when to restart the VAC as an outpatient.
[2018-01-17 05:52] LABS: Hematocrit 25.4 % (37-47); Hemoglobin 8.4 g/dl (12.0-15.0); Mean Corp Hgb Conc 33.1 g/gl (32-36); Mean Corpuscular Hgb 29.6 pg (27.0-32.0); Mean Corpuscular Volume 89.4 fL (81-99); Mean Platelet Vol. 7.8 fl (6.2-12.0); Platelet Count 204 K/mm3 (150-450); RBC Distribution Width CV 13.2 % (11.6-14.6); RBC Distribution Width SD 41.2 fl (35.1-43.9); Red Blood Count 2.84 M/mm3 (4.2-5.4); White Blood Count 5.5 K/mm3 (4.4-11.0)
[2018-01-17] MEDS: Enoxaparin 40 MG/0.4 ML Syringe SC (06:02)
[2018-01-17] MEDS: Piperacil/Tazobactam 3.375 GM/50 ML ML IV (06:02)
[2018-01-17 06:03] LABS: ALB/GLOB Ratio 0.6 RATIO (0.9-2.4); AST(SGOT) 49 U/L (15-37); Alanine Aminotransfer ALT/SGPT 119 U/L (13-56); Albumin, Serum 2.1 g/dL (3.2-5.0); Alkaline Phosphatase 105 U/L (45-117); Anion Gap 7 (5-15); BUN 9 mg/dL (7-18); BUN/Creat Ratio 10.7 RATIO (10-20); Calcium,Total 8.1 mg/dL (8.5-10.1); Chloride 107 mmol/L (98-107); Creatinine, Serum 0.84 mg/dL (0.55-1.02); EST Glomerular Filtration Rate 82 mL/min (>60); Est Glom Filt Rate - Afr Amer 99 mL/min (>60); Estimated Creatinine Clearance 96.09 ml/min; Globulin 3.4 g/dL (2.2-4.2); Glucose 96 mg/dL (74-106); Potassium 3.7 mmol/L (3.5-5.1); Protein, Total 5.5 g/dL (6.4-8.2); Sodium Level 140 mmol/L (136-145)
[2018-01-17] MEDS: Pentoxifylline 400 MG Tablet PO ×2 (06:03→16:32)
[2018-01-17] MEDS: Levothyroxine 150 MCG Tablet PO (06:03)
[2018-01-17] MEDS: 0.9% NaCl Peripheral Flush Adult/Peds IV ×3 (06:03→11:39)
[2018-01-17 06:07] VITALS: BP 117/73; PULSE 70; RESP 16; TEMP 37.2; O2SAT 98
[2018-01-17 06:22] LABS: Scan Indicated on CBC? Y/N NO
--- NOTE | 2018-01-17 06:32 | NURSING ---
Read and agree with JAN Rogerssenior statistician.
[2018-01-17 06:41] LABS: Erythrocyte Sedimentation Rate 22 mm/hr (0-20)
[2018-01-17 08:09] VITALS: BP 138/89; PULSE 86; RESP 18; TEMP 37.3; O2SAT 99
[2018-01-17] MEDS: Ondansetron 4 MG/2 ML Vial IV (08:31)
[2018-01-17] MEDS: Gabapentin 300 MG Capsule PO ×3 (08:33→17:25)
[2018-01-17] MEDS: 0.9% Normal Saline 1,000 ML 75 ML IV (08:33)
[2018-01-17] MEDS: Pantoprazole Sodium 40 MG Tablet PO (08:33)
[2018-01-17] MEDS: Docusate Sodium 100 MG Capsule PO (08:33)
[2018-01-17] MEDS: Iron Polysaccharide Complex 150 MG CAPSULE PO (08:34)
[2018-01-17] MEDS: oxyCODONE 5 MG Tablet 10 MG PO ×2 (08:34→17:59)
--- NOTE | 2018-01-17 09:34 | ONC.CON.INP2 ---
- Problem List (1) Cancer of left female breast Status: Chronic Qualifiers: Estrogen receptor status: positive Consult Referring Physician: Jose Robertson MD Consult Results: Breast cancer on adjuvant treatment Subjective Date of Service:: 01/17/18 Chief Complaint: LEFT BREAST PAIN History of Present Illness: Patient is a 32-year-old female hospitalized with suspected infected left breast lumpectomy seroma presenting with persistent pain. She is now status post surgical drainage in December 2017 and is on antibiotics. Her oncologic history is as follows: She's a premenopausal female who presented with an abnormal left nipple discharge, February 2017 a diagnostic mammogram followed by an ultrasound showed an abnormality that was confirmed on biopsy on March 16 to represent an invasive ductal cancer. On April 06, 2017 the patient underwent a left partial mastectomy with sentinel lymph node biopsy with a final pathology showing an infiltrating ductal carcinoma measuring 1.2 cm in maximum diameter poorly differentiated, grade 3, ER negative, PA weak positive, Her-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 Margins were negative for both invasive and noninvasive cancer. Patient started systemic adjuvant therapy under the care of in [facility] on May 18, 2017 where she received 3 cycles of treatment then transferred to [facility] to be close to home. She experienced delays due to pancytopenia especially thrombocytopenia. Starting with her third cycle she required growth factor support. During her infusions she experienced infusion related reactions including shortness of breath flushing back pain that required premedication with H1, H2, steroid medication and slowing down the infusion rate to several hours. She also experienced side effects of hair loss, abnormal taste, mouth sores, bony pains with growth factor use. Pretreatment cardiac evaluation was by echo that reportedly showed an normal LVEF of 60%. Pre-adjuvant chemotherapy evaluation also included a brain MRI due to history of headaches that showed no evidence of metastatic disease and abnormal liver functions that showed fatty liver. Reportedly patient was offered fertility preservation consultation prior to therapy but she declined. Her had vasectomies, pretreatment test was negative and she reports no menses Since May 2017. She reported that her wound healing was protracted. Treatment: - TC X6 cycles -08/2017- (delays due to delayed wound healing, cytopenias and febrile neutropenia). - Herceptin maintenance 10/04/2017 - Tamoxifen 11/15/2017- Adjuvant radiation therapy; 4256 cGy of mixed 6, 10, and 15 MV photons in 16 fractions to the left breast with a 3D conformal technique consisting of [place], LPO, and MONTERO carmen with field and field to improve dose homogeneity. A sequential boost consisting of 1000 cGy of mixed 10 and 15 MV photon in 4 fractions was delivered to the lumpectomy bed with a 3D conformal technique consisting of [place] and LPO carmen. This brought the total dose delivered to 5256 cGy in 20 fractions. Patient was treated in the prone position to limit dose to the heart and lungs. Date of First Treatment: 10/13/2017 Date of Last Treatment: 11/10/2017 Past Medical History: Chronic Problems (Last Reviewed 12/27/17 @ 11:54 by Mile Healy) Intermittent epigastric abdominal pain (Chronic) Personal history of malignant neoplasm of breast (Chronic) Cancer of left female breast (Chronic) Fatty liver (Chronic) STEVE (obstructive sleep apnea) (Chronic) Chronic back pain (Chronic) Hypothyroidism (Chronic) Narcolepsy (Chronic) Anxiety and depression (Chronic) Past Medical/Surgical History: Past Medical History (Last Reviewed 12/27/17 @ 11:54 by Mile Healy) Anxiety (Acute) Asthma (Acute) BLADDER/URINARY TRACT INFECTION (Acute) Breast cancer (Acute) Carpal tunnel syndrome (Acute) Depression (Acute) Headache (Acute) Hives (Acute) Immunodeficiency (Acute) NEUROPATHY AFTER ARM SURGERY (Acute) NON HEALING POST- LUMPECTOMY SEROMA ULCER LEFT BREAST (Acute) Neutropenia (Acute) Pneumonia (Acute) Polycystic ovary (Acute) Psychiatric disorder (Acute) Sleep apnea (Acute) Thyroid disease (Acute) Vitamin D deficiency (Acute) med port placement (Acute) Past Surgical History (Last Reviewed 12/27/17 @ 11:54 by Mile Healy) HOSPITAL FEBRILE NEUTROPENIA DISCHARGED 07/14/2017 (Acute) History of lumpectomy (Acute) History of partial mastectomy of left breast (Acute 03/2017) PORT PLACEMENT (Acute 04/2017) Plantar wart (Acute ~2007) SURGICAL PREPARATION LEFT LATERAL BREAST (Acute) [place] teeth extracted (Acute) Maternal Family History: Family History (Last Reviewed 12/27/17 @ 11:54 by Mile Healy) Mother Psychiatric disorder Thyroid disorder Father Hyperlipidemia Hypertension Father Heart disease Aunt Seizures Grandmother Cancer Colon cancer Grandfather Diabetes Heart disease Family History: - - Thyroid disease, psychiatric disorder. Paternal Family History: Family History (Last Reviewed 12/27/17 @ 11:54 by Mile Healy) Mother Psychiatric disorder Thyroid disorder Father Hyperlipidemia Hypertension Father Heart disease Aunt Seizures Grandmother Cancer Colon cancer Grandfather Diabetes Heart disease Family History: Heart Disease, Hypertension - Social History Lives: Spouse/ Significant Other Smoking Status: Former smoker Tobacco Use: Non-smoker Alcohol: None Drugs: None Allergies/Adverse Reactions: Allergy/AdvReac Type Severity Reaction Status Date / Time hydromorphone [From Dilaudid] Allergy Severe Laryngospas Verified 01/13/18 15:45 ms morphine Allergy Severe chest Verified 01/13/18 15:45 tightening TAPE AdvReac Mild Other Uncoded 01/13/18 15:45 Home Medications Medication Instructions Recorded Tamoxifen Citrate [Nolvadex] 20 mg PO QHS 01/03/18 Vitamin E 400 unit PO QHS 01/03/18 Gabapentin [Neurontin] 300 mg PO TIDCM 30 Days #90 cap 01/06/18 proMETHazine tablet [Phenergan 25 mg PO 4X/DAY PRN PRN #30 tab 01/06/18 tablet] Diazepam [Valium] 5 mg PO 4X/DAY PRN PRN 01/10/18 Oxycodone HCl/Acetaminophen 5 - 325 mg PO .4x/day prn PRN 01/10/18 [Percocet 5-325] Docusate Sodium [Colace] 100 mg PO BID 01/13/18 Doxycycline Hyclate [Doxycycline 100 mg PO BID 01/13/18 Hyclate] Fentanyl [Fentanyl] 50 mcg TD Q3D 01/13/18 Pentoxifylline [Trental] 400 mg PO TID 01/13/18 Ceftriaxone [Rocephin] 1 gm IV Q24 #14 bag 01/14/18 Review of Systems Constitutional:: Reports: Weakness, Fatigue, Fever - As had low-grade fevers. Denies: Sweats, Weight loss, Appetite change, Chills Cardiovascular:: Denies: Chest pain, Palpitations, Dyspnea on exertion, Orthopnea, PND, Shortness of breath Respiratory: Denies: Cough, Hemoptysis, Shortness of Breath, Wheezing Gastrointestinal:: Denies: Abdominal pain, Nausea, Vomiting, Diarrhea, Constipation, Hematochezia Genitourinary: Denies: Dysuria, Hematuria, 15, Flank pain Musculoskeletal:: Reports: Back pain - Chronic predates cancer diagnosis. Denies: Myalgia, Arthralgia Skin: Denies: Rash, Skin Changes, Wounds Neurological:: Denies: Headache, Dizziness, Visual changes, Tinnitus, Hearing loss Psychiatric: Denies: Anxiety, Depression, Homicidal Ideations, Suicidal Ideations Comment: Left breast surgical wound open Vital Signs Height 5 ft 8 in Weight: 103.3 kg Weight in Pounds 227.7 lbs Pulse Ox 99 Temperature 99.2 F Pulse Rate 86 Respiratory Rate 18 Blood Pressure 138/89 Blood Pressure Position Sitting - Physical Exam General: Alert, Oriented x3, No apparent distress, - - Obese ECOG 1 Mildly pale HEENT: Atraumatic, PERRLA, EOMI, Normocephalic, - - No thrush Oropharynx:: Dry mucosa Neck:: Supple, Trachea midline, - - Port okay. Negative for: JVD, bilateral Cardiac:: Regular rate, Regular rhythm, Normal S1, Normal S2. Negative for: Murmur Lungs: Clear to auscultation, Excusion symmetrical. Negative for: Rhonchi, Wheezes Abdomen:: Soft, Non-tender, Non-distended. Negative for: Hepatosplenomegaly Extremities:: Negative for: Cyanosis, Edema Neurological: Neuro grossly intact Skin:: Negative for: Lesions, Rash, Petechiae, Ecchymosis Psychiatric:: Appropriate affect, Euthymic Lymphatics:: Negative for: Cervical lymphadenopathy, Supraclavicular lymphadenopathy, Axillary lymphadenopathy Laboratory Data: Microbiology 01/13/18 23:10 Gram Stain - Final Wound - Aerobic & Anaerobic Swabs Wound Culture - Preliminary Acinetobacter radioresistens Gram positive organism Laboratory Tests 01/17/18 01/17/18 Range/Units 05:34 05:34 WBC 5.5 (4.4-11.0) K/mm3 RBC 2.84 L (4.2-5.4) M/mm3 Hgb 8.4 L (12.0-15.0) g/dl Hct 25.4 L (37-47) % MCV 89.4 (81-99) fL MCH 29.6 (27.0-32.0) pg MCHC 33.1 (32-36) g/gl RDW 13.2 (11.6-14.6) % RDW Differential 41.2 (35.1-43.9) fl Plt Count 204 (150-450) K/mm3 MPV 7.8 (6.2-12.0) fl ESR 22 H (0-20) mm/hr Sodium 140 (136-145) mmol/L Potassium 3.7 (3.5-5.1) mmol/L Chloride 107 (98-107) mmol/L Carbon Dioxide 26.0 (21.0-32.0) mmol/L Anion Gap 7 (5-15) BUN 9 (7-18) mg/dL Creatinine 0.84 (0.55-1.02) mg/dL Estim Creat Clear Calc 96.09 ml/min Est GFR (MDRD) Af Amer 99 (>60) mL/min Est GFR (MDRD) Non-Af 82 (>60) mL/min BUN/Creatinine Ratio 10.7 (10-20) RATIO Glucose 96 (74-106) mg/dL Calcium 8.1 L (8.5-10.1) mg/dL Total Bilirubin 0.40 (0.20-1.00) mg/dL AST 49 H (15-37) U/L ALT 119 H (13-56) U/L Alkaline Phosphatase 105 (45-117) U/L C-React Prot Ext Range 102.00 H (0.0-3.0) mg/L Total Protein 5.5 L (6.4-8.2) g/dL Albumin 2.1 L (3.2-5.0) g/dL Globulin 3.4 (2.2-4.2) g/dL Albumin/Globulin Ratio 0.6 L (0.9-2.4) RATIO Diagnostic Data: Diagnostic Data Chest X-Ray 01/13/18 16:05 IMPRESSION: No acute cardiopulmonary findings. Prior atelectatic changes have resolved with no new area of focal consolidation, substantial atelectasis or pleural effusion. Right subclavian catheter remains ending at the atriocaval junction. Obvious soft tissue deformity of the lateral margin of the left breast with overlying drainage catheter. Electronically Signed: Cici Rosario MD at 16:42 EDT , Service support , Assessment and Plan 32-year-old premenopausal female with invasive ductal cancer of the left breast stage I (T1c, N0, M0) high-grade G3, ER negative, PA weak positive, HER-2 positive. Patient is status post partial mastectomy with sentinel lymph node biopsy April 06, 2017. She received adjuvant systemic chemotherapy with TCH May through August 2017, . Delays of treatment has occurred due to delayed wound healing, cytopenias and intercurrent illnesses (Febrile neutropenia, URTI, and dental infection) Started 1 year maintenance of Herceptin October 04, 2017. Received adjuvant radiation therapy September 2017 through October 2017. Started adjuvant Tamoxifen 11/15/2017, well-tolerated. Hospitalized December 2017 was persistent pain in the left lumpectomy area and suspected infected seroma status post surgical drainage and is on antibiotics. Plan: From the medical oncology aspect of management 1. Continue with 1 year maintenance Herceptin. Due for Herceptin today which she will receive prior to discharge on home antibiotics 2. Continue adjuvant hormonal therapy with tamoxifen . Patient is premenopausal at Dx. Treatment will be for 5-10 years depending on tolerance. 3. Monitoring of cardiac function with echo every 3 months next one due first week in March 2018. Impression and plan discussed with patient and Dr. Robertson Follow-up in 3 weeks Medications: Prescriptions This Visit Medication Instructions Recorded Docusate Sodium [Colace] 100 mg PO BID 01/13/18 Doxycycline Hyclate [Doxycycline 100 mg PO BID 01/13/18 Hyclate] Fentanyl [Fentanyl] 50 mcg TD Q3D 01/13/18 Pentoxifylline [Trental] 400 mg PO TID 01/13/18 Ceftriaxone [Rocephin] 1 gm IV Q24 #14 bag 01/14/18 Medications Added to Medication List This Visit Category Date Time Status Ceftriaxone 2 gm Med 01/17/18 10:00 Active 0.9% Normal Saline 50 ml IV Q24 Primary Care Provider: Rhett Elias MD Referring Provider:
--- NOTE | 2018-01-17 09:45 | CON.PCM_ITS ---
- Problem List (1) Cancer of left female breast Status: Chronic Qualifiers: Estrogen receptor status: positive Consult Referring Physician: Jose Robertson MD Consult Results: Breast cancer on adjuvant treatment Subjective Date of Service:: 01/17/18 Chief Complaint: LEFT BREAST PAIN History of Present Illness: Patient is a 32-year-old female hospitalized with suspected infected left breast lumpectomy seroma presenting with persistent pain. She is now status post surgical drainage in December 2017 and is on antibiotics. Her oncologic history is as follows: She's a premenopausal female who presented with an abnormal left nipple discharge, February 2017 a diagnostic mammogram followed by an ultrasound showed an abnormality that was confirmed on biopsy on March 16 to represent an invasive ductal cancer. On April 06, 2017 the patient underwent a left partial mastectomy with sentinel lymph node biopsy with a final pathology showing an infiltrating ductal carcinoma measuring 1.2 cm in maximum diameter poorly differentiated, grade 3, ER negative, LA weak positive, Her-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 Margins were negative for both invasive and noninvasive cancer. Patient started systemic adjuvant therapy under the care of in [facility] on May 18, 2017 where she received 3 cycles of treatment then transferred to [facility] to be close to home. She experienced delays due to pancytopenia especially thrombocytopenia. Starting with her third cycle she required growth factor support. During her infusions she experienced infusion related reactions including shortness of breath flushing back pain that required premedication with H1, H2, steroid medication and slowing down the infusion rate to several hours. She also experienced side effects of hair loss, abnormal taste, mouth sores, bony pains with growth factor use. Pretreatment cardiac evaluation was by echo that reportedly showed an normal LVEF of 60%. Pre-adjuvant chemotherapy evaluation also included a brain MRI due to history of headaches that showed no evidence of metastatic disease and abnormal liver functions that showed fatty liver. Reportedly patient was offered fertility preservation consultation prior to therapy but she declined. Her had vasectomies, pretreatment test was negative and she reports no menses Since May 2017. She reported that her wound healing was protracted. Treatment: - TC X6 cycles -08/2017- (delays due to delayed wound healing, cytopenias and febrile neutropenia). - Herceptin maintenance 10/04/2017 - Tamoxifen 11/15/2017- Adjuvant radiation therapy; 4256 cGy of mixed 6, 10, and 15 MV photons in 16 fractions to the left breast with a 3D conformal technique consisting of [place], LPO, and MONTERO carmen with field and field to improve dose homogeneity. A sequential boost consisting of 1000 cGy of mixed 10 and 15 MV photon in 4 fractions was delivered to the lumpectomy bed with a 3D conformal technique consisting of THAI and LPO carmen. This brought the total dose delivered to 5256 cGy in 20 fractions. Patient was treated in the prone position to limit dose to the heart and lungs. Date of First Treatment: 10/13/2017 Date of Last Treatment: 11/10/2017 Past Medical History: Chronic Problems (Last Reviewed 12/27/17 @ 11:54 by Mile Healy) Intermittent epigastric abdominal pain (Chronic) Personal history of malignant neoplasm of breast (Chronic) Cancer of left female breast (Chronic) Fatty liver (Chronic) STEVE (obstructive sleep apnea) (Chronic) Chronic back pain (Chronic) Hypothyroidism (Chronic) Narcolepsy (Chronic) Anxiety and depression (Chronic) Past Medical/Surgical History: Past Medical History (Last Reviewed 12/27/17 @ 11:54 by Mile Healy) Anxiety (Acute) Asthma (Acute) BLADDER/URINARY TRACT INFECTION (Acute) Breast cancer (Acute) Carpal tunnel syndrome (Acute) Depression (Acute) Headache (Acute) Hives (Acute) Immunodeficiency (Acute) NEUROPATHY AFTER ARM SURGERY (Acute) NON HEALING POST- LUMPECTOMY SEROMA ULCER LEFT BREAST (Acute) Neutropenia (Acute) Pneumonia (Acute) Polycystic ovary (Acute) Psychiatric disorder (Acute) Sleep apnea (Acute) Thyroid disease (Acute) Vitamin D deficiency (Acute) med port placement (Acute) Past Surgical History (Last Reviewed 12/27/17 @ 11:54 by Mile Healy) HOSPITAL FEBRILE NEUTROPENIA DISCHARGED 07/14/2017 (Acute) History of lumpectomy (Acute) History of partial mastectomy of left breast (Acute 03/2017) PORT PLACEMENT (Acute 04/2017) Plantar wart (Acute ~2007) SURGICAL PREPARATION LEFT LATERAL BREAST (Acute) [place] teeth extracted (Acute) Maternal Family History: Family History (Last Reviewed 12/27/17 @ 11:54 by Mile Healy) Mother Psychiatric disorder Thyroid disorder Father Hyperlipidemia Hypertension Father Heart disease Aunt Seizures Grandmother Cancer Colon cancer Grandfather Diabetes Heart disease Family History: - - Thyroid disease, psychiatric disorder. Paternal Family History: Family History (Last Reviewed 12/27/17 @ 11:54 by Mile Healy) Mother Psychiatric disorder Thyroid disorder Father Hyperlipidemia Hypertension Father Heart disease Aunt Seizures Grandmother Cancer Colon cancer Grandfather Diabetes Heart disease Family History: Heart Disease, Hypertension - Social History Lives: Spouse/ Significant Other Smoking Status: Former smoker Tobacco Use: Non-smoker Alcohol: None Drugs: None Allergies/Adverse Reactions: Allergy/AdvReac Type Severity Reaction Status Date / Time hydromorphone [From Dilaudid] Allergy Severe Laryngospas Verified 01/13/18 15:45 ms morphine Allergy Severe chest Verified 01/13/18 15:45 tightening TAPE AdvReac Mild Other Uncoded 01/13/18 15:45 Home Medications Medication Instructions Recorded Tamoxifen Citrate [Nolvadex] 20 mg PO QHS 01/03/18 Vitamin E 400 unit PO QHS 01/03/18 Gabapentin [Neurontin] 300 mg PO TIDCM 30 Days #90 cap 01/06/18 proMETHazine tablet [Phenergan 25 mg PO 4X/DAY PRN PRN #30 tab 01/06/18 tablet] Diazepam [Valium] 5 mg PO 4X/DAY PRN PRN 01/10/18 Oxycodone HCl/Acetaminophen 5 - 325 mg PO .4x/day prn PRN 01/10/18 [Percocet 5-325] Docusate Sodium [Colace] 100 mg PO BID 01/13/18 Doxycycline Hyclate [Doxycycline 100 mg PO BID 01/13/18 Hyclate] Fentanyl [Fentanyl] 50 mcg TD Q3D 01/13/18 Pentoxifylline [Trental] 400 mg PO TID 01/13/18 Ceftriaxone [Rocephin] 1 gm IV Q24 #14 bag 01/14/18 Review of Systems Constitutional:: Reports: Weakness, Fatigue, Fever - As had low-grade fevers. Denies: Sweats, Weight loss, Appetite change, Chills Cardiovascular:: Denies: Chest pain, Palpitations, Dyspnea on exertion, Orthopnea, PND, Shortness of breath Respiratory: Denies: Cough, Hemoptysis, Shortness of Breath, Wheezing Gastrointestinal:: Denies: Abdominal pain, Nausea, Vomiting, Diarrhea, Constipation, Hematochezia Genitourinary: Denies: Dysuria, Hematuria, 15, Flank pain Musculoskeletal:: Reports: Back pain - Chronic predates cancer diagnosis. Denies: Myalgia, Arthralgia Skin: Denies: Rash, Skin Changes, Wounds Neurological:: Denies: Headache, Dizziness, Visual changes, Tinnitus, Hearing loss Psychiatric: Denies: Anxiety, Depression, Homicidal Ideations, Suicidal Ideations Comment: Left breast surgical wound open Vital Signs Height 5 ft 8 in Weight: 103.3 kg Weight in Pounds 227.7 lbs Pulse Ox 99 Temperature 99.2 F Pulse Rate 86 Respiratory Rate 18 Blood Pressure 138/89 Blood Pressure Position Sitting - Physical Exam General: Alert, Oriented x3, No apparent distress, - - Obese ECOG 1 Mildly pale HEENT: Atraumatic, PERRLA, EOMI, Normocephalic, - - No thrush Oropharynx:: Dry mucosa Neck:: Supple, Trachea midline, - - Port okay. Negative for: JVD, bilateral Cardiac:: Regular rate, Regular rhythm, Normal S1, Normal S2. Negative for: Murmur Lungs: Clear to auscultation, Excusion symmetrical. Negative for: Rhonchi, Wheezes Abdomen:: Soft, Non-tender, Non-distended. Negative for: Hepatosplenomegaly Extremities:: Negative for: Cyanosis, Edema Neurological: Neuro grossly intact Skin:: Negative for: Lesions, Rash, Petechiae, Ecchymosis Psychiatric:: Appropriate affect, Euthymic Lymphatics:: Negative for: Cervical lymphadenopathy, Supraclavicular lymphadenopathy, Axillary lymphadenopathy Laboratory Data: Microbiology 01/13/18 23:10 Gram Stain - Final Wound - Aerobic & Anaerobic Swabs Wound Culture - Preliminary Acinetobacter radioresistens Gram positive organism Laboratory Tests 3 01/17/18 01/17/18 Range/Units 05:34 05:34 WBC 5.5 (4.4-11.0) K/mm3 RBC 2.84 L (4.2-5.4) M/mm3 Hgb 8.4 L (12.0-15.0) g/dl Hct 25.4 L (37-47) % MCV 89.4 (81-99) fL MCH 29.6 (27.0-32.0) pg MCHC 33.1 (32-36) g/gl RDW 13.2 (11.6-14.6) % RDW Differential 41.2 (35.1-43.9) fl Plt Count 204 (150-450) K/mm3 MPV 7.8 (6.2-12.0) fl ESR 22 H (0-20) mm/hr Sodium 140 (136-145) mmol/L Potassium 3.7 (3.5-5.1) mmol/L Chloride 107 (98-107) mmol/L Carbon Dioxide 26.0 (21.0-32.0) mmol/L Anion Gap 7 (5-15) BUN 9 (7-18) mg/dL Creatinine 0.84 (0.55-1.02) mg/dL Estim Creat Clear Calc 96.09 ml/min Est GFR (MDRD) Af Amer 99 (>60) mL/min Est GFR (MDRD) Non-Af 82 (>60) mL/min BUN/Creatinine Ratio 10.7 (10-20) RATIO Glucose 96 (74-106) mg/dL Calcium 8.1 L (8.5-10.1) mg/dL Total Bilirubin 0.40 (0.20-1.00) mg/dL AST 49 H (15-37) U/L ALT 119 H (13-56) U/L Alkaline Phosphatase 105 (45-117) U/L C-React Prot Ext Range 102.00 H (0.0-3.0) mg/L Total Protein 5.5 L (6.4-8.2) g/dL Albumin 2.1 L (3.2-5.0) g/dL Globulin 3.4 (2.2-4.2) g/dL Albumin/Globulin Ratio 0.6 L (0.9-2.4) RATIO Diagnostic Data: Diagnostic Data Chest X-Ray 01/13/18 16:05 IMPRESSION: No acute cardiopulmonary findings. Prior atelectatic changes have resolved with no new area of focal consolidation, substantial atelectasis or pleural effusion. Right subclavian catheter remains ending at the atriocaval junction. Obvious soft tissue deformity of the lateral margin of the left breast with overlying drainage catheter. Electronically Signed: Cici Rosario MD at 16:42 EDT , Service support , Assessment and Plan 32-year-old premenopausal female with invasive ductal cancer of the left breast stage I (T1c, N0, M0) high-grade G3, ER negative, LA weak positive, HER-2 positive. Patient is status post partial mastectomy with sentinel lymph node biopsy April 06, 2017. She received adjuvant systemic chemotherapy with TCH May through August 2017, . Delays of treatment has occurred due to delayed wound healing, cytopenias and intercurrent illnesses (Febrile neutropenia, URTI, and dental infection) Started 1 year maintenance of Herceptin October 04, 2017. Received adjuvant radiation therapy September 2017 through October 2017. Started adjuvant Tamoxifen 11/15/2017, well-tolerated. Hospitalized December 2017 was persistent pain in the left lumpectomy area and suspected infected seroma status post surgical drainage and is on antibiotics. Plan: From the medical oncology aspect of management 1. Continue with 1 year maintenance Herceptin. Due for Herceptin today which she will receive prior to discharge on home antibiotics 2. Continue adjuvant hormonal therapy with tamoxifen . Patient is premenopausal at Dx. Treatment will be for 5-10 years depending on tolerance. 3. Monitoring of cardiac function with echo every 3 months next one due first week in March 2018. Impression and plan discussed with patient and Dr. Robertson Follow-up in 3 weeks Medications: Prescriptions This Visit Medication Instructions Recorded Docusate Sodium [Colace] 100 mg PO BID 01/13/18 Doxycycline Hyclate [Doxycycline 100 mg PO BID 01/13/18 Hyclate] Fentanyl [Fentanyl] 50 mcg TD Q3D 01/13/18 Pentoxifylline [Trental] 400 mg PO TID 01/13/18 Ceftriaxone [Rocephin] 1 gm IV Q24 #14 bag 01/14/18 Medications Added to Medication List This Visit Category Date Time Status Ceftriaxone 2 gm Med 01/17/18 10:00 Active 0.9% Normal Saline 50 ml IV Q24 Primary Care Provider: Rhett Elias MD Referring Provider:
--- NOTE | 2018-01-17 09:57 | NURSING ---
aware per primary RN oncologist requesting immunotherapy be done today. discussed with care management and Lizzeth nurse at outpatient [facility]. aware Lizzeth discussed patient/ treatment with oncologist and because of temps requesting immunotherapy be done on unit prior to discharge instead of in the infusion center upon discharge today. informed telephonic nurse case manager. informed primary RN to call unit at [phone] when ready for them to come administer infusion
--- NOTE | 2018-01-17 11:52 | CASEMGMT ---
Referral sent to I to set up IV ATB for at home. JAN ESPANA called [facility] for resumption of [facility] for wound care and IV ATB. Start of care is for 01/18/18 at 10am when next dose of ATB due. [facility] is able to accept patient resumption with IV ATB. JAN ESPANA will fax updated IV ATB script to [facility] and [facility] when obtained. JAN ESPANA will continue to follow this patient and plan for safe discharge.
--- NOTE | 2018-01-17 12:08 | NURSING ---
dressing changed at this time by Lacey wound RN.
--- NOTE | 2018-01-17 13:04 | NURSING ---
wound photo: left breast
--- NOTE | 2018-01-17 13:26 | PCM.PN.SRG ---
Subjective: Postop #13 Hospital day #5 Patient is resting comfortably. Most of her pain is during the dressing changes. - Physical Exam General: Alert, Oriented x3 HEENT: PERRLA, EOMI Oral: No Gingival or Mucosal Lesions/ Ulcerations Neck: Supple Lungs: Clear to auscultation Cardiovascular: Regular rate, Regular Rhythm Abdomen: Soft, Non-Distended Skin: Ulcer/ Wound - left breast mastectomy wound is stable. No bleeding. No pus seen. Continue daily dressing changes with Aquacel Silver. Lymphatic: - - no axillary adenopathy. Neurological: Cranial nerves II-XII grossly intact Psych/Mental Status: Normal Affect, Appropriate Vital Signs Temp Pulse Resp BP Pulse Ox 99.2 F H 86 18 138/89 H 99 01/17/18 08:09 01/17/18 08:09 01/17/18 08:09 01/17/18 08:09 01/17/18 08:09 Oxygen Delivery Method Room Air Weight: 227 lb 11.8 oz Intake and Output for Last 24 Hours 01/15/18 01/16/18 01/17/18 23:59 23:59 23:59 Intake Total 3927 / 3927 1050 / 1050 3076 / 3076 Output Total 1100 / 1100 980 / 980 2850 / 2850 Balance 2827 / 2827 70 / 70 226 / 226 Microbiology Past 72 Hours 01/13/18 23:10 Gram Stain - Final Wound - Aerobic & Anaerobic Swabs Wound Culture - Preliminary Acinetobacter radioresistens Staphylococcus species Anaerobic Culture - Preliminary Checking for anaerobes, further studies to follow. Laboratory Tests Past 24 Hrs 01/17/18 01/17/18 05:34 05:34 WBC 5.5 RBC 2.84 L Hgb 8.4 L Hct 25.4 L MCV 89.4 MCH 29.6 MCHC 33.1 RDW 13.2 RDW Differential 41.2 Plt Count 204 MPV 7.8 ESR 22 H Sodium 140 Potassium 3.7 Chloride 107 Carbon Dioxide 26.0 Anion Gap 7 BUN 9 Creatinine 0.84 Estim Creat Clear Calc 96.09 Est GFR (MDRD) Af Amer 99 Est GFR (MDRD) Non-Af 82 BUN/Creatinine Ratio 10.7 Glucose 96 Calcium 8.1 L Total Bilirubin 0.40 AST 49 H ALT 119 H Alkaline Phosphatase 105 C-React Prot Ext Range 102.00 H Total Protein 5.5 L Albumin 2.1 L Globulin 3.4 Albumin/Globulin Ratio 0.6 L Medical Necessity - Tobacco Use Smoking Status: Former smoker Tobacco Use: Non-smoker Assessment/Plan 1. Left breast mastectomy wound infection. 2. Post-lumpectomy painful indentation scar contour deformity left lateral breast. 3. Late effect radiation left breast. 4. Left breast cancer. 5. s/p lumpectomy with chemotherapy and radiation therapy. 6. Disproportion reconstructed left breast. 7. Post-lumpectomy infected seroma left lateral breast. 8. Anemia of chronic disease, acute on chronic. Wound culture shows Acinetobacter radioresistens and Staphylococcus species. MRSA DNA PCR is negative. The Acinetobacter is sensitive to Ceftriaxone. So will stop the Cefepime and Zosyn. She has a port. Will be discharged on IV antibiotics with Ceftriaxone. May need to add an antibiotic once the Staphylococcus species is identified. Also waiting on Anaerobic culture as well which may also require an antibiotic. Will consult Oncology today as Dr. Edouard had called asking to give the scheduled Herceptin today. Will continue with daily dressing changes with Aquacel Silver. VAC on hold for now. May resume the VAC at the Wound Center. She is doing a little better with the dressing changes with po analgesia. Discharge home today. Hgb stable at 8.4 after the PRBC. Has anemia of chronic disease, with acute on chronic. There is no acute source of ongoing blood loss. Probably related to IV dilution. Iron supplementation has been started and will be continued after discharge. She states she has had epigastric discomfort since taking her Tamoxifen. She has seen Dr. Moseley who is planning endoscopy as an outpatient. Their office will set that up in the next couple of weeks. Protonix was started and will be continued after discharge. Prealbumin is low at 12.0. Encourage nutritional supplementation with protein to help the healing process. Since it was decided which antibiotic to send her home on, will discharge her home today. Followup at Wound Center next week on 01/24/18. She was initially evaluated there for HBO treatments secondary to the radiation. However I was told that HBO cannot be given at this time since the radiation therapy was recently given. The recommendation is to wait 6 months after radiation therapy before proceeding with HBO. Her radiation therapy was completed in October. Will determine when to restart the VAC as an outpatient.
--- NOTE | 2018-01-17 13:30 | CASEMGMT ---
New script for IV Rocephin obtained from Dr. Robertson and faxed to [facility] and [facility]. JAN ESPANA called [facility] to confirm that script was received and IV ATB will be delivered to patient by 10am 01/18/18. RN CM updated Dr. Robertson and patient. RN CM will continue to follow and plan for a safe discharge.
[2018-01-17] MEDS: DiphenhydrAMINE 50 MG/ML Syringe IV (13:52)
--- NOTE | 2018-01-17 14:04 | PCM.PN.HOSP ---
Patient Problems: Active and Suspected Problems (Last Reviewed 12/27/17 @ 11:54 by Mile Healy) Wound infection (Acute) Subjective: Patient was seen and examined. Sitting up in a chair. Denies any fever or chills. Left breast wound is dressed. Wound cultures growing Acinetobacter radial resistance and Staphylococcus species which is pansensitive. Blood cultures have been negative ?48 hours. Patient remains on IV ceftriaxone 2 g daily. She denies any chest pain. Vitals/I&O's: Vital Signs Temp Pulse Resp BP Pulse Ox 99.2 F H 86 18 138/89 H 99 01/17/18 08:09 01/17/18 08:09 01/17/18 08:09 01/17/18 08:09 01/17/18 08:09 Oxygen Delivery Method Room Air Weight: 103.3 kg Intake and Output for Last 24 Hours 01/15/18 01/16/18 01/17/18 23:59 23:59 23:59 Intake Total 3927 / 3927 1050 / 1050 3076 / 3076 Output Total 1100 / 1100 980 / 980 2850 / 2850 Balance 2827 / 2827 70 / 70 226 / 226 General: Alert, Oriented x3, Cooperative, No apparent distress HEENT: Atraumatic, PERRLA, EOMI, Normocephalic Oral: Moist Mucosa Neck: Supple Lungs: Clear to auscultation, Normal air movement, - - Left breast dressing intact, right sided Mediport to the chest Cardiovascular: Regular rate, Regular Rhythm, Normal S1, Normal S2, No murmurs Abdomen: Bowel Sounds Present, Soft, Non Tender, Non-Distended, No Hepato-splenomegaly Extremities: No edema Skin: No rashes, No breakdown Musculoskeletal: No Tenderness to Palpation of Joints or Extremities Lymphatic: No Cervical, Supraclavicular, or Inguinal Adenopathy Neurological: Cranial nerves II-XII grossly intact Psych/Mental Status: Normal Affect, Appropriate Microbiology Past 72 Hours 01/13/18 23:10 Wound - Aerobic & Anaerobic Swabs Gram Stain - Final 01/13/18 23:10 Wound - Aerobic & Anaerobic Swabs Wound Culture - Preliminary Acinetobacter radioresistens Staphylococcus species 01/13/18 23:10 Wound - Aerobic & Anaerobic Swabs Anaerobic Culture - Preliminary Checking for anaerobes, further studies to follow. Laboratory Results 01/17/18 05:34: WBC 5.5, RBC 2.84 L, Hgb 8.4 L, Hct 25.4 L, MCV 89.4, MCH 29.6, MCHC 33.1, RDW 13.2, RDW Differential 41.2, Plt Count 204, MPV 7.8, ESR 22 H 01/17/18 05:34: Sodium 140, Potassium 3.7, Chloride 107, Carbon Dioxide 26.0, Anion Gap 7, BUN 9, Creatinine 0.84, Estim Creat Clear Calc 96.09, Est GFR (MDRD) Af Amer 99, Est GFR (MDRD) Non-Af 82, BUN/Creatinine Ratio 10.7, Glucose 96, Calcium 8.1 L, Total Bilirubin 0.40, AST 49 H, ALT 119 H, Alkaline Phosphatase 105, C-React Prot Ext Range 102.00 H, Total Protein 5.5 L, Albumin 2.1 L, Globulin 3.4, Albumin/Globulin Ratio 0.6 L Current Medications Acetaminophen (Tylenol) 650 mg PO Q6H PRN PRN PRN Reason: Non-cardiac pain (mod-severe) Last Admin: 01/16/18 21:06 Dose: 650 mg Albuterol Sulfate (Ventolin Aerosols) 2.5 mg INHALATION Q2H PRN PRN PRN Reason: dyspnea, wheezing Diazepam (Valium) 5 mg PO 4X/DAY PRN PRN PRN Reason: SPASMS Last Admin: 01/16/18 08:28 Dose: 5 mg Diphenhydramine HCl (Benadryl) 50 mg IV X1 ONE Stop: 01/17/18 23:59 Last Admin: 01/17/18 13:52 Dose: 50 mg Diphenhydramine HCl (Benadryl) 50 mg IV UD PRN PRN Reason: Hypersensitivity Reaction Stop: 01/17/18 23:59 Docusate Sodium (Colace) 100 mg PO BID [facility] Last Admin: 01/17/18 08:33 Dose: 100 mg Enoxaparin Sodium (Lovenox) 40 mg SC DAILY@0600 [facility] Last Admin: 01/17/18 06:02 Dose: 40 mg Epinephrine HCl (Epi Pen) 0.3 mg IM UD PRN PRN Reason: Anaphylaxis Reaction Stop: 01/17/18 23:59 Fentanyl (Duragesic Patch) 50 mcg TRANSDERM. Q3D [facility] Last Admin: 01/16/18 21:06 Dose: 50 mcg Gabapentin (Neurontin) 300 mg PO TIDCM [facility] Last Admin: 01/17/18 11:50 Dose: 300 mg Heparin Sodium (Beef Lung) (Heparin 500 Unit/5 Ml (100/Ml)) 500 unit IV UD PRN PRN Reason: HEPARIN FLUSH Stop: 01/17/18 23:59 Hydralazine HCl (Apresoline Iv) 10 mg IV Q4H PRN PRN PRN Reason: SBP > 160 Hydrocortisone Sodium Succinate (Solu-Cortef) 100 mg IV UD PRN PRN Reason: Hypersensitivity Reaction Stop: 01/17/18 23:59 Sodium Chloride () 1,000 mls @ 75 mls/hr IV .[id number] [facility] Last Admin: 01/17/18 08:33 Dose: 75 mls/hr Ceftriaxone Sodium 2 gm/ (Sodium Chloride) 50 mls @ 100 mls/hr IV Q24 [facility] Last Admin: 01/17/18 11:47 Dose: 100 mls/hr Dexamethasone Sodium Phosphate (20 mg/ Sodium Chloride) 55 mls @ 220 mls/hr IV X1 ONE PRN Reason: 220 MLS/HR Stop: 01/17/18 23:59 Last Admin: 01/17/18 13:52 Dose: 220 mls/hr Trastuzumab 630 mg/ Sodium (Chloride) 250 mls @ 125 mls/hr IV X1 [facility] Stop: 01/17/18 23:59 Levothyroxine Sodium (Synthroid) 150 mcg PO DAILY@0600 [facility] Last Admin: 01/17/18 06:03 Dose: 150 mcg Liothyronine Sodium (Cytomel) 5 mcg PO DAILY [facility] Last Admin: 01/17/18 08:33 Dose: 5 mcg Meperidine HCl (Demerol) 75 mg IV Q3H PRN PRN PRN Reason: PAIN Last Admin: 01/17/18 11:40 Dose: 75 mg Nutritional Formula (Lactose Free) (Ensure Enlive) 120 ml PO 4X/DAY [facility] Last Admin: 01/17/18 11:47 Dose: Not Given Ondansetron HCl (Zofran) 4 mg IV Q8H PRN PRN PRN Reason: NAUSEA/VOMITING Last Admin: 01/17/18 08:31 Dose: 4 mg Oxycodone HCl (Oxyir) 10 mg PO Q4H PRN PRN PRN Reason: SEVERE PAIN (6-1010) Last Admin: 01/17/18 08:34 Dose: 10 mg Pantoprazole Sodium (Protonix) 40 mg PO DAILY [facility] Last Admin: 01/17/18 08:33 Dose: 40 mg Pentoxifylline (Trental) 400 mg PO TID [facility] Last Admin: 01/17/18 06:03 Dose: 400 mg Polysaccharide Iron Complex ([facility]rex 150) [facility] Last Admin: 01/17/18 08:34 Dose: 150 mg Promethazine HCl (Phenergan Tablet) 25 mg PO Q4H PRN PRN PRN Reason: NAUSEA/VOMITING Last Admin: 01/14/18 20:01 Dose: 25 mg Sodium Chloride () 5 - 30 ml IV UD PRN PRN Reason: SALINE FLUSH Last Admin: 01/17/18 11:39 Dose: 20 ml Sodium Chloride () 250 ml IV UD PRN PRN Reason: Flush lines as needed Stop: 01/17/18 23:59 Tamoxifen Citrate (Nolvadex) 20 mg PO QHS [facility] Last Admin: 01/16/18 21:10 Dose: 20 mg Vitamin E (Vitamin E) 400 units PO QHS [facility] Last Admin: 01/16/18 21:09 Dose: 400 units Medical Necessity - Tobacco Use Smoking Status: Former smoker Tobacco Use: Non-smoker Assessment/Plan Active and Suspected Problems (Last Reviewed 12/27/17 @ 11:54 by Mile Healy) Wound infection (Acute) 32-year-old female with invasive ductal cancer of the left breast(diagnosed in 03/2017). Status post chemotherapy and radiation as well as complete mastectomy, Obesity, Hypothyroidism, Anxiety and Depression, Fatty Liver Disease, Narcolepsy, STEVE, Chronic Back Pain, admitted on 01/13/2018with wound infection with fever for 1 day. 1. Acinetobacter and Staphylococcus left breast mastectomy wound infection, no fevers seen, remains on IV ceftriaxone, blood cultures are negative, Discussed with Dr Robertson - will be discharged on IV ceftriaxone 2g daily until she is seen in wound center. Depending on how wound looks, might be transitioned to oral antibiotics. Wound care per [facility] and wound center. May need to continue packing or wound vac. This will be determined by Dr. Robertson. 2. Hypothyroidism, TSH 11.2. Free T4 0.9 normal, on synthroid 150mcg and liothyronine 5mcg daily, and needs to repeat TSH, free T4 3. Left Invasive ductal breast CA, stage I (T1c, N0, M0), s/p mastectomy, chemo, radiation, on herceptin, adjuvant tamoxifen, following oncology 4. Anemia, microcytic, microchromic, s/p 2 pRBC transfusions, will be discharged on po iron. 5. Anxiety and depression,chronic pain syndrome, chronic back pain, 6. Obesity, BMI 34.6 7. Obstructive sleep apnea, on CPAP 8. DVT PPx - Lovenox, bilateral SCDs Code Visit Inpatient E&M: 04857 Subs Hosp L2
[2018-01-17 14:11] VITALS: BP 134/89; PULSE 82; RESP 18; TEMP 36.9; O2SAT 98
--- NOTE | 2018-01-17 14:27 | PN_ITS ---
Patient Problems: Active and Suspected Problems (Last Reviewed 12/27/17 @ 11:54 by Mile Healy) Wound infection (Acute) Subjective: Patient was seen and examined. Sitting up in a chair. Denies any fever or chills. Left breast wound is dressed. Wound cultures growing Acinetobacter radial resistance and Staphylococcus species which is pansensitive. Blood cultures have been negative ?48 hours. Patient remains on IV ceftriaxone 2 g daily. She denies any chest pain. Vitals/I&O's: Vital Signs Temp Pulse Resp BP Pulse Ox 99.2 F H 86 18 138/89 H 99 01/17/18 08:09 01/17/18 08:09 01/17/18 08:09 01/17/18 08:09 01/17/18 08:09 Oxygen Delivery Method Room Air Weight: 103.3 kg Intake and Output for Last 24 Hours 01/15/18 01/16/18 01/17/18 23:59 23:59 23:59 Intake Total 3927 / 3927 1050 / 1050 3076 / 3076 Output Total 1100 / 1100 980 / 980 2850 / 2850 Balance 2827 / 2827 70 / 70 226 / 226 General: Alert, Oriented x3, Cooperative, No apparent distress HEENT: Atraumatic, PERRLA, EOMI, Normocephalic Oral: Moist Mucosa Neck: Supple Lungs: Clear to auscultation, Normal air movement, - - Left breast dressing intact, right sided Mediport to the chest Cardiovascular: Regular rate, Regular Rhythm, Normal S1, Normal S2, No murmurs Abdomen: Bowel Sounds Present, Soft, Non Tender, Non-Distended, No Hepato- splenomegaly Extremities: No edema Skin: No rashes, No breakdown Musculoskeletal: No Tenderness to Palpation of Joints or Extremities Lymphatic: No Cervical, Supraclavicular, or Inguinal Adenopathy Neurological: Cranial nerves II-XII grossly intact Psych/Mental Status: Normal Affect, Appropriate Microbiology Past 72 Hours 01/13/18 23:10 Wound - Aerobic & Anaerobic Swabs Gram Stain - Final 01/13/18 23:10 Wound - Aerobic & Anaerobic Swabs Wound Culture - Preliminary Acinetobacter radioresistens Staphylococcus species 01/13/18 23:10 Wound - Aerobic & Anaerobic Swabs Anaerobic Culture - Preliminary Checking for anaerobes, further studies to follow. Laboratory Results 01/17/18 05:34: WBC 5.5, RBC 2.84 L, Hgb 8.4 L, Hct 25.4 L, MCV 89.4, MCH 29.6, MCHC 33.1, RDW 13.2, RDW Differential 41.2, Plt Count 204, MPV 7.8, ESR 22 H 01/17/18 05:34: Sodium 140, Potassium 3.7, Chloride 107, Carbon Dioxide 26.0, Anion Gap 7, BUN 9, Creatinine 0.84, Estim Creat Clear Calc 96.09, Est GFR (MDRD ) Af Amer 99, Est GFR (MDRD) Non-Af 82, BUN/Creatinine Ratio 10.7, Glucose 96, Calcium 8.1 L, Total Bilirubin 0.40, AST 49 H, ALT 119 H, Alkaline Phosphatase 105, C-React Prot Ext Range 102.00 H, Total Protein 5.5 L, Albumin 2.1 L, Globulin 3.4, Albumin/Globulin Ratio 0.6 L Current Medications Acetaminophen (Tylenol) 650 mg PO Q6H PRN PRN PRN Reason: Non-cardiac pain (mod-severe) Last Admin: 01/16/18 21:06 Dose: 650 mg Albuterol Sulfate (Ventolin Aerosols) 2.5 mg INHALATION Q2H PRN PRN PRN Reason: dyspnea, wheezing Diazepam (Valium) 5 mg PO 4X/DAY PRN PRN PRN Reason: SPASMS Last Admin: 01/16/18 08:28 Dose: 5 mg Diphenhydramine HCl (Benadryl) 50 mg IV X1 ONE Stop: 01/17/18 23:59 Last Admin: 01/17/18 13:52 Dose: 50 mg Diphenhydramine HCl (Benadryl) 50 mg IV UD PRN PRN Reason: Hypersensitivity Reaction Stop: 01/17/18 23:59 Docusate Sodium (Colace) 100 mg PO BID [facility] 234 BEDS AT THE [facility] Last Admin: 01/17/18 08:33 Dose: 100 mg Enoxaparin Sodium (Lovenox) 40 mg SC DAILY@0600 [facility] 234 BEDS AT THE [facility] Last Admin: 01/17/18 06:02 Dose: 40 mg Epinephrine HCl (Epi Pen) 0.3 mg IM UD PRN PRN Reason: Anaphylaxis Reaction Stop: 01/17/18 23:59 Fentanyl (Duragesic Patch) 50 mcg TRANSDERM. Q3D [facility] 234 BEDS AT THE [facility] Last Admin: 01/16/18 21:06 Dose: 50 mcg Gabapentin (Neurontin) 300 mg PO TIDCM [facility]S [facility]CLUDE 234 BEDS AT THE [facility] Last Admin: 01/17/18 11:50 Dose: 300 mg Heparin Sodium (Beef Lung) (Heparin 500 Unit/5 Ml (100/Ml)) 500 unit IV UD PRN PRN Reason: HEPARIN FLUSH Stop: 01/17/18 23:59 Hydralazine HCl (Apresoline Iv) 10 mg IV Q4H PRN PRN PRN Reason: SBP > 160 Hydrocortisone Sodium Succinate (Solu-Cortef) 100 mg IV UD PRN PRN Reason: Hypersensitivity Reaction Stop: 01/17/18 23:59 Sodium Chloride () 1,000 mls @ 75 mls/hr IV .[id number] COUNTS [facility]CLUDE 234 BEDS AT THE [facility] Last Admin: 01/17/18 08:33 Dose: 75 mls/hr Ceftriaxone Sodium 2 gm/ (Sodium Chloride) 50 mls @ 100 mls/hr IV Q24 [facility]S [facility]CLUDE 234 BEDS AT THE [facility] Last Admin: 01/17/18 11:47 Dose: 100 mls/hr Dexamethasone Sodium Phosphate (20 mg/ Sodium Chloride) 55 mls @ 220 mls/hr IV X1 ONE PRN Reason: 220 MLS/HR Stop: 01/17/18 23:59 Last Admin: 01/17/18 13:52 Dose: 220 mls/hr Trastuzumab 630 mg/ Sodium (Chloride) 250 mls @ 125 mls/hr IV X1 [facility]S INCLUDE 234 BEDS AT THE [facility] Stop: 01/17/18 23:59 Levothyroxine Sodium (Synthroid) 150 mcg PO DAILY@0600 [facility]S INCLUDE 234 BEDS AT THE [facility] Last Admin: 01/17/18 06:03 Dose: 150 mcg Liothyronine Sodium (Cytomel) 5 mcg PO DAILY [facility]S INCLUDE 234 BEDS AT THE [facility] Last Admin: 01/17/18 08:33 Dose: 5 mcg Meperidine HCl (Demerol) 75 mg IV Q3H PRN PRN PRN Reason: PAIN Last Admin: 01/17/18 11:40 Dose: 75 mg Nutritional Formula (Lactose Free) (Ensure Enlive) 120 ml PO 4X/DAY [facility]S [facility]CLUDE 234 BEDS AT THE [facility] Last Admin: 01/17/18 11:47 Dose: Not Given Ondansetron HCl (Zofran) 4 mg IV Q8H PRN PRN PRN Reason: NAUSEA/VOMITING Last Admin: 01/17/18 08:31 Dose: 4 mg Oxycodone HCl (Oxyir) 10 mg PO Q4H PRN PRN PRN Reason: SEVERE PAIN (6-1010) Last Admin: 01/17/18 08:34 Dose: 10 mg Pantoprazole Sodium (Protonix) 40 mg PO DAILY [facility]CLUDE 234 BEDS AT THE [facility] Last Admin: 01/17/18 08:33 Dose: 40 mg Pentoxifylline (Trental) 400 mg PO TID [facility]CLUDE 234 BEDS AT THE [facility] Last Admin: 01/17/18 06:03 Dose: 400 mg Polysaccharide [facility] ([facility]rex 150) [facility] Last Admin: 01/17/18 08:34 Dose: 150 mg Promethazine HCl (Phenergan Tablet) 25 mg PO Q4H PRN PRN PRN Reason: NAUSEA/VOMITING Last Admin: 01/14/18 20:01 Dose: 25 mg Sodium Chloride () 5 - 30 ml IV UD PRN PRN Reason: SALINE FLUSH Last Admin: 01/17/18 11:39 Dose: 20 ml Sodium Chloride () 250 ml IV UD PRN PRN Reason: Flush lines as needed Stop: 01/17/18 23:59 Tamoxifen Citrate (Nolvadex) 20 mg PO QHS [facility]CLUDE 234 BEDS AT THE [facility] Last Admin: 01/16/18 21:10 Dose: 20 mg Vitamin E (Vitamin E) 400 units PO QHS [facility]S [facility]CLUDE 234 BEDS AT THE [facility] Last Admin: 01/16/18 21:09 Dose: 400 units Medical Necessity - Tobacco Use Smoking Status: Former smoker Tobacco Use: Non-smoker Assessment/Plan Active and Suspected Problems (Last Reviewed 12/27/17 @ 11:54 by Mile Healy) Wound infection (Acute) 32-year-old female with invasive ductal cancer of the left breast( diagnosed in 03/2017). Status post chemotherapy and radiation as well as complete mastectomy, Obesity, Hypothyroidism, Anxiety and Depression, Fatty Liver Disease, Narcolepsy, STEVE, Chronic Back Pain, admitted on 01/13/2018with wound infection with fever for 1 day. 1. Acinetobacter and Staphylococcus left breast mastectomy wound infection, no fevers seen, remains on IV ceftriaxone, blood cultures are negative, Discussed with Dr Robertson - will be discharged on IV ceftriaxone 2g daily until she is seen in wound center. Depending on how wound looks, might be transitioned to oral antibiotics. Wound care per [facility] and wound center. May need to continue packing or wound vac. This will be determined by Dr. Robertson. 2. Hypothyroidism, TSH 11.2. Free T4 0.9 normal, on synthroid 150mcg and liothyronine 5mcg daily, and needs to repeat TSH, free T4 3. Left Invasive ductal breast CA, stage I (T1c, N0, M0), s/p mastectomy, chemo , radiation, on herceptin, adjuvant tamoxifen, following oncology 4. Anemia, microcytic, microchromic, s/p 2 pRBC transfusions, will be discharged on po iron. 5. Anxiety and depression,chronic pain syndrome, chronic back pain, 6. Obesity, BMI 34.6 7. Obstructive sleep apnea, on CPAP 8. DVT PPx - Lovenox, bilateral SCDs Code Visit Inpatient E&M: 32164 Subs Hosp L2
--- NOTE | 2018-01-17 14:28 | DS.PCM_ITS ---
Discharge Date and Diagnosis Date of Admission: 01/13/18 Date of Discharge: 01/17/18 - Primary Discharge Diagnosis Left breast mastectomy wound infection. Late effect radiation left breast. Left breast cancer. Anemia of chronic disease, acute on chronic. - Secondary Discharge Diagnosis Post-lumpectomy painful indentation scar contour deformity left lateral breast. s/p lumpectomy with chemotherapy and radiation therapy. Disproportion reconstructed left breast. Post-lumpectomy infected seroma left lateral breast. Intermittent epigastric abdominal pain Fatty liver STEVE (obstructive sleep apnea) Chronic back pain Hypothyroidism Narcolepsy Anxiety and depression Hospital Course and Treatment Imaging Results: Diagnostic Data Chest X-Ray 01/13/18 16:05 IMPRESSION: No acute cardiopulmonary findings. Prior atelectatic changes have resolved with no new area of focal consolidation, substantial atelectasis or pleural effusion. Right subclavian catheter remains ending at the atriocaval junction. Obvious soft tissue deformity of the lateral margin of the left breast with overlying drainage catheter. Electronically Signed: Cici Rosario MD at 16:42 EDT , Service support , CONSULTATIONS Dr. Edouard from Oncology. Hospitalist Group - Dr. Kapadia and Dr. Gomez and Dr. Villar. Operations: None Procedures: Blood transfusion Summary of Care Provided: The patient is a 32 year old F who had surgery on 01/04/18 where she underwent revision left breast reconstruction with excision painful infected lateral radiation lumpectomy scar contour deformity with completion mastectomy. The VAC was applied after surgery. Wound culture showed Staphylococcus aureus. She was discharged home on Augmentin. Later on at the Wound Center, she was being evaluated for HBO treatments, and the antibiotics were changed to Doxycycline. Earlier today she called complaining of increasing pain in her left breast wound as well as increasing temperature and increasing heart rate. She went to the ED for evaluation. She was started on Vancomycin. Her Pulse was 138. Her Temperature was 100.3. She is being admitted for IV antibiotics because she has failed outpatient therapy. We started Vancomycin and Zosyn. Cefepime was added. When the wound culture came back, it showed Acinetobacter radioresistens and Staphylococcus species. MRSA DNA PCR was negative. The Acinetobacter is sensitive to Ceftriaxone. So will stop the Cefepime and Zosyn. She has a port. Will be discharged on IV antibiotics with Ceftriaxone. May need to add an antibiotic once the Staphylococcus species is identified. Also waiting on Anaerobic culture as well which may also require an antibiotic. Will remove the VAC and place it on hold. Will start daily dressing changes with Aquacel Silver. Will culture the wound as well. Will consult the Hospitalist Service to assist with medical management. Her thyroid levels were off since she stopped taking her meds when she started chemotherapy. Her thyroid medication was resumed. Will check further levels as an outpatient. Oncology with Dr. Edouard was consulted to give Herceptin while hospitalized to maintain her schedule. She tolerated the daily dressing changes with Aquacel Silver with IV analgesia initially and then finally with po analgesia. VAC on hold for now. May resume the VAC at the Wound Center. Her initial Hgb was 10.6 and it decreased to 7.6, most likely from anemia of chronic disease and IV dilution. She received 2 units PRBC and her Hg was stable at 8.4 at discharge. There was no acute source of ongoing blood loss during her hospital stay. Iron supplementation has been started and will be continued after discharge. She states she has had epigastric discomfort since taking her Tamoxifen. She has seen Dr. Moseley who is planning endoscopy as an outpatient. Their office will set that up in the next couple of weeks. Protonix was started and will be continued after discharge. Prealbumin is low at 12.0. Encourage nutritional supplementation with protein to help the healing process. When it was decided which antibiotic to send her home on (Ceftriaxone) and she was tolerating the Silver dressing changes reasonably well on po analgesia, she was discharged home on hospital day #5. Followup at Wound Center next week on 01/24/18. She was initially evaluated there for HBO treatments secondary to the radiation. However I was told that HBO cannot be given at this time since the radiation therapy was recently given. The recommendation is to wait 6 months after radiation therapy before proceeding with HBO. Her radiation therapy was completed in October. Will determine when to restart the VAC as an outpatient. Wrote scripts for Percocet for pain (60 tabs) and for Valium for spasm (30 tabs ) and for Duragesic Patch, 50mcg, for pain (5 patches). Wrote script for Ceftriaxone IV for 6 weeks. Home Health to check labs weekly ( CBC, CMP, ESR, CRP). Wrote scripts for Iron supplements, Protonix, Phenergan, and Colace. Condition upon discharge is stable. Discharge Diet: No Restrictions, - - encourage nutritional supplementation with protein to help the healing process. Discharge Activity: Return to Normal Activity, May not drive while taking narcotic pain medications., May Shower - at the time of the dressing change. May shower in (days): 1 - may shower at the time of the dressing change. May resume sexual activity in: No Restrictions, 6 weeks Weight Bearing Status: Weight bearing as tolerated Lifting Restrict to (lbs):: 20 - with left arm. Keep extremity elevated above heart level: Left Arm Call your doctor if your incision/area has: Continuous Slow Oozing, Sudden Increased Bleeding, Increased Pain/ Swelling, Increased Redness, Foul Smelling Discharge, Swelling at the incision site Call your doctor if you observe: Fever of 101 or Higher, Coldness, Increased Pain, Shortness of breath, Chest pain, Calf discomfort, Uncontrolled pain Suture Line Care: - - daily wound care to left breast mastectomy wound with Aquacel silver and moistened kerlix gauze. Change Dressing in (Days):: 1 - daily dressing change with Aquacel Silver and moistened kerlix gauze. Cleanse incision/area with: Soap & Water - may cleanse the wound with soap and water at the time of the dressing change., - - may shower at the time of the dressing change. Additional Dressing/Incision Instructions:: Home Health to assist with daily dressing changes to the left breast mastectomy wound with Aquacel Silver and moistened kerlix gauze. Home Medications: Medications to take at Discharge Tamoxifen Citrate [Nolvadex] 20 mg PO QHS 01/03/18 Vitamin E 400 unit PO QHS 01/03/18 Gabapentin [Neurontin] 300 mg PO TIDCM 30 Days #90 cap 01/06/18 proMETHazine tablet [Phenergan tablet] 25 mg PO 4X/DAY PRN PRN #30 tab 01/06/18 Fentanyl 50 mcg TD Q3D 01/13/18 Pentoxifylline [Trental] 400 mg PO TID 01/13/18 0.9 % Sodium Chloride [Saline Wound Wash] 210 ml MC .QDAILY #6 bottle 01/17/18 Albuterol Aerosols [Ventolin Aerosols] 2.5 mg INHALATION Q2H PRN PRN vial.neb. 01/17/18 Ceftriaxone 2 gm IV Q24 40 Days #40 vial 01/17/18 Diazepam [Valium] 5 mg PO 4X/DAY PRN PRN #30 tab 01/17/18 Docusate Sodium [Colace] 100 mg PO BID #30 cap 01/17/18 Gauze Bandage [Bandage Roll] 2 ea TP .QDAILY #60 bandage 01/17/18 Iron Polysaccharide Complex [Ferrex 150] 150 mg PO DAILYCM #30 cap 01/17/18 Levothyroxine [Synthroid] 150 mcg PO DAILY@0600 tablet 01/17/18 Liothyronine Sodium [Cytomel] 5 mcg PO DAILY tablet 01/17/18 Oxycodone HCl/Acetaminophen [Percocet 5-325] 5 - 325 mg PO .4x/day prn PRN 7 Days #60 tab 01/17/18 Pantoprazole Sodium [Protonix] 40 mg PO DAILY #30 tab 01/17/18 Silver/Hydrocolloid Dressing [Aquacel-Ag W-Hydrofiber Dress] 1 ea TP .QDAILY # 30 bandage 01/17/18 fentaNYL patch [Duragesic patch] 50 mcg TRANSDERM. Q3D #5 patch 01/17/18 proMETHazine tablet [Phenergan tablet] 25 mg PO 4X/DAY PRN PRN #30 tab 01/17/18 Following Prescrptions Were Given to Patient: 0.9 % Sodium Chloride [Saline Wound Wash] 210 ml MC .QDAILY #6 bottle Ceftriaxone 2 gm IV Q24 40 Days #40 vial Diazepam [Valium] 5 mg PO 4X/DAY PRN PRN #30 tab PRN Reason: Anxiety fentaNYL patch [Duragesic patch] 50 mcg TRANSDERM. Q3D #5 patch Gauze Bandage [Bandage Roll] 2 ea TP .QDAILY #60 bandage Iron Polysaccharide Complex [Ferrex 150] 150 mg PO DAILYCM #30 cap Oxycodone HCl/Acetaminophen [Percocet 5-325] 5 - 325 mg PO .4x/day prn PRN 7 Days #60 tab PRN Reason: Pain Pantoprazole Sodium [Protonix] 40 mg PO DAILY #30 tab proMETHazine tablet [Phenergan tablet] 25 mg PO 4X/DAY PRN PRN #30 tab PRN Reason: NAUSEA/VOMITING Silver/Hydrocolloid Dressing [Aquacel-Ag W-Hydrofiber Dress] 1 ea TP .QDAILY # 30 bandage Docusate Sodium [Colace] 100 mg PO BID #30 cap Primary Care Physician: Rhett Elias MD [Primary Care Provider] - Please Follow Up With: Jose Robertson MD - call [phone] if any questions. When: Wednesday01/24/18 at wound center at 1000am. Please Follow Up With: Evangelist Moseley MD - call [phone] to set that up. When: couple of weeks to schedule endoscopy. Additional Instructions: Home Health to draw CBC, CMP, ESR, CRP qMonday. Please fax results to the Wound Center at [phone]. Disposition: Home with Home Health Minutes spent on discharge:: 40 Patient Condition:: Stable Medical Necessity - Tobacco Use Smoking Status: Former smoker Tobacco Use: Non-smoker Meaningful Use Info Meaningful Use Diagnoses (Choose all that apply): None applicable
--- NOTE | 2018-01-17 16:49 | PCM.DC ---
- Discharge Diagnoses Current Active Problems: Current Active and Chronic Problems (Last Reviewed 12/27/17 @ 11:54 by Mile Healy) Wound infection (Acute) You will use the following diet at home:: No restrictions, Other - encourage nutritional supplementation with protein to help the healing process. Discharge Activity: Return to Normal Activity, May not drive while taking narcotic pain medications., May Shower - at the time of the dressing change. May shower in (days): 1 - may shower at the time of the dressing change. May resume sexual activity in: No Restrictions Weight Bearing Status: Weight bearing as tolerated Lifting Restrictions: 20 lbs with left arm. Keep extremity elevated above heart level: Left Arm Call your doctor if your incision/area has: Continuous Slow Oozing, Sudden Increased Bleeding, Increased Pain/ Swelling, Increased Redness, Foul Smelling Discharge, Swelling at the incision site Call your doctor if you observe: Fever of 101 or Higher, Coldness, Increased Pain, Shortness of breath, Chest pain, Calf discomfort, Uncontrolled pain Suture Line Care: - - daily wound care to left breast mastectomy wound with Aquacel silver and moistened kerlix gauze. Change Dressing in (Days):: 1 - daily dressing change with Aquacel Silver and moistened kerlix gauze. Cleanse incision/area with: Soap & Water - may cleanse the wound with soap and water at the time of the dressing change., - - may shower at the time of the dressing change. Additional Dressing/Incision Instructions:: Home Health to assist with daily dressing changes to the left breast mastectomy wound with Aquacel Silver and moistened kerlix gauze. Allergies/Adverse Reactions: Allergies hydromorphone [From Dilaudid] Allergy (Severe, Verified 01/13/18 15:45) Laryngospasms morphine Allergy (Severe, Verified 01/13/18 15:45) chest tightening TAPE Adverse Reaction (Mild, Uncoded 01/13/18 15:45) Other Medications to take at Discharge Tamoxifen Citrate [Nolvadex] 20 mg PO QHS 01/03/18 Vitamin E 400 unit PO QHS 01/03/18 Gabapentin [Neurontin] 300 mg PO TIDCM 30 Days #90 cap 01/06/18 proMETHazine tablet [Phenergan tablet] 25 mg PO 4X/DAY PRN PRN #30 tab 01/06/18 Fentanyl 50 mcg TD Q3D 01/13/18 Pentoxifylline [Trental] 400 mg PO TID 01/13/18 0.9 % Sodium Chloride [Saline Wound Wash] 210 ml MC .QDAILY #6 bottle 01/17/18 Albuterol Aerosols [Ventolin Aerosols] 2.5 mg INHALATION Q2H PRN PRN vial.neb. 01/17/18 Ceftriaxone 2 gm IV Q24 40 Days #40 vial 01/17/18 Diazepam [Valium] 5 mg PO 4X/DAY PRN PRN #30 tab 01/17/18 Docusate Sodium [Colace] 100 mg PO BID #30 cap 01/17/18 Gauze Bandage [Bandage Roll] 2 ea TP .QDAILY #60 bandage 01/17/18 Iron Polysaccharide Complex [Ferrex 150] 150 mg PO DAILYCM #30 cap 01/17/18 Levothyroxine [Synthroid] 150 mcg PO DAILY@0600 tablet 01/17/18 Liothyronine Sodium [Cytomel] 5 mcg PO DAILY tablet 01/17/18 Oxycodone HCl/Acetaminophen [Percocet 5-325] 5 - 325 mg PO .4x/day prn PRN 7 Days #60 tab 01/17/18 Pantoprazole Sodium [Protonix] 40 mg PO DAILY #30 tab 01/17/18 Silver/Hydrocolloid Dressing [Aquacel-Ag W-Hydrofiber Dress] 1 ea TP .QDAILY #30 bandage 01/17/18 fentaNYL patch [Duragesic patch] 50 mcg TRANSDERM. Q3D #5 patch 01/17/18 proMETHazine tablet [Phenergan tablet] 25 mg PO 4X/DAY PRN PRN #30 tab 01/17/18 The following prescriptions were given: 0.9 % Sodium Chloride [Saline Wound Wash] 210 ml MC .QDAILY #6 bottle Ceftriaxone 2 gm IV Q24 40 Days #40 vial Diazepam [Valium] 5 mg PO 4X/DAY PRN PRN #30 tab PRN Reason: Anxiety fentaNYL patch [Duragesic patch] 50 mcg TRANSDERM. Q3D #5 patch Gauze Bandage [Bandage Roll] 2 ea TP .QDAILY #60 bandage Iron Polysaccharide Complex [Ferrex 150] 150 mg PO DAILYCM #30 cap Oxycodone HCl/Acetaminophen [Percocet 5-325] 5 - 325 mg PO .4x/day prn PRN 7 Days #60 tab PRN Reason: Pain Pantoprazole Sodium [Protonix] 40 mg PO DAILY #30 tab proMETHazine tablet [Phenergan tablet] 25 mg PO 4X/DAY PRN PRN #30 tab PRN Reason: NAUSEA/VOMITING Silver/Hydrocolloid Dressing [Aquacel-Ag W-Hydrofiber Dress] 1 ea TP .QDAILY #30 bandage Docusate Sodium [Colace] 100 mg PO BID #30 cap Primary Care Physician: Rhett Elias MD [Primary Care Provider] - Please Follow Up With: Jose Robertson MD - call [phone] if any questions. When: Wednesday01/24/18 at wound center at 1000am. Please Follow Up With: Evangelist Moseley MD - call [phone] to set that up. When: couple of weeks to schedule endoscopy. Proposed Discharge Date: 01/17/18
--- NOTE | 2018-01-17 17:00 | DCINST_ITS ---
- Discharge Diagnoses Current Active Problems: Current Active and Chronic Problems (Last Reviewed 12/27/17 @ 11:54 by Mile Healy) Wound infection (Acute) You will use the following diet at home:: No restrictions, Other - encourage nutritional supplementation with protein to help the healing process. Discharge Activity: Return to Normal Activity, May not drive while taking narcotic pain medications., May Shower - at the time of the dressing change. May shower in (days): 1 - may shower at the time of the dressing change. May resume sexual activity in: No Restrictions Weight Bearing Status: Weight bearing as tolerated Lifting Restrictions: 20 lbs with left arm. Keep extremity elevated above heart level: Left Arm Call your doctor if your incision/area has: Continuous Slow Oozing, Sudden Increased Bleeding, Increased Pain/ Swelling, Increased Redness, Foul Smelling Discharge, Swelling at the incision site Call your doctor if you observe: Fever of 101 or Higher, Coldness, Increased Pain, Shortness of breath, Chest pain, Calf discomfort, Uncontrolled pain Suture Line Care: - - daily wound care to left breast mastectomy wound with Aquacel silver and moistened kerlix gauze. Change Dressing in (Days):: 1 - daily dressing change with Aquacel Silver and moistened kerlix gauze. Cleanse incision/area with: Soap & Water - may cleanse the wound with soap and water at the time of the dressing change., - - may shower at the time of the dressing change. Additional Dressing/Incision Instructions:: Home Health to assist with daily dressing changes to the left breast mastectomy wound with Aquacel Silver and moistened kerlix gauze. Allergies/Adverse Reactions: Allergies hydromorphone [From Dilaudid] Allergy (Severe, Verified 01/13/18 15:45) Laryngospasms morphine Allergy (Severe, Verified 01/13/18 15:45) chest tightening TAPE Adverse Reaction (Mild, Uncoded 01/13/18 15:45) Other Medications to take at Discharge Tamoxifen Citrate [Nolvadex] 20 mg PO QHS 01/03/18 Vitamin E 400 unit PO QHS 01/03/18 Gabapentin [Neurontin] 300 mg PO TIDCM 30 Days #90 cap 01/06/18 proMETHazine tablet [Phenergan tablet] 25 mg PO 4X/DAY PRN PRN #30 tab 01/06/18 Fentanyl 50 mcg TD Q3D 01/13/18 Pentoxifylline [Trental] 400 mg PO TID 01/13/18 0.9 % Sodium Chloride [Saline Wound Wash] 210 ml MC .QDAILY #6 bottle 01/17/18 Albuterol Aerosols [Ventolin Aerosols] 2.5 mg INHALATION Q2H PRN PRN vial.neb. 01/17/18 Ceftriaxone 2 gm IV Q24 40 Days #40 vial 01/17/18 Diazepam [Valium] 5 mg PO 4X/DAY PRN PRN #30 tab 01/17/18 Docusate Sodium [Colace] 100 mg PO BID #30 cap 01/17/18 Gauze Bandage [Bandage Roll] 2 ea TP .QDAILY #60 bandage 01/17/18 Iron Polysaccharide Complex [Ferrex 150] 150 mg PO DAILYCM #30 cap 01/17/18 Levothyroxine [Synthroid] 150 mcg PO DAILY@0600 tablet 01/17/18 Liothyronine Sodium [Cytomel] 5 mcg PO DAILY tablet 01/17/18 Oxycodone HCl/Acetaminophen [Percocet 5-325] 5 - 325 mg PO .4x/day prn PRN 7 Days #60 tab 01/17/18 Pantoprazole Sodium [Protonix] 40 mg PO DAILY #30 tab 01/17/18 Silver/Hydrocolloid Dressing [Aquacel-Ag W-Hydrofiber Dress] 1 ea TP .QDAILY # 30 bandage 01/17/18 fentaNYL patch [Duragesic patch] 50 mcg TRANSDERM. Q3D #5 patch 01/17/18 proMETHazine tablet [Phenergan tablet] 25 mg PO 4X/DAY PRN PRN #30 tab 01/17/18 The following prescriptions were given: 0.9 % Sodium Chloride [Saline Wound Wash] 210 ml MC .QDAILY #6 bottle Ceftriaxone 2 gm IV Q24 40 Days #40 vial Diazepam [Valium] 5 mg PO 4X/DAY PRN PRN #30 tab PRN Reason: Anxiety fentaNYL patch [Duragesic patch] 50 mcg TRANSDERM. Q3D #5 patch Gauze Bandage [Bandage Roll] 2 ea TP .QDAILY #60 bandage Iron Polysaccharide Complex [Ferrex 150] 150 mg PO DAILYCM #30 cap Oxycodone HCl/Acetaminophen [Percocet 5-325] 5 - 325 mg PO .4x/day prn PRN 7 Days #60 tab PRN Reason: Pain Pantoprazole Sodium [Protonix] 40 mg PO DAILY #30 tab proMETHazine tablet [Phenergan tablet] 25 mg PO 4X/DAY PRN PRN #30 tab PRN Reason: NAUSEA/VOMITING Silver/Hydrocolloid Dressing [Aquacel-Ag W-Hydrofiber Dress] 1 ea TP .QDAILY # 30 bandage Docusate Sodium [Colace] 100 mg PO BID #30 cap Primary Care Physician: Rhett Elias MD [Primary Care Provider] - Please Follow Up With: Jose Robertson MD - call [phone] if any questions. When: Wednesday01/24/18 at wound center at 1000am. Please Follow Up With: Evangelist Moseley MD - call [phone] to set that up. When: couple of weeks to schedule endoscopy. Proposed Discharge Date: 01/17/18
--- NOTE | 2018-01-17 17:08 | CHAPLAIN ---
Type of Pastoral Visit _x__ Initial Visit ___ Follow-up Visit ___ On-call Visit ___ General Patient Visit ___ Spiritual Assessment ___ Family Conference ___ Bereavement ___ Rapid Response ___ Code Blue ___ Other (describe below) Pastoral Care Referral From _x__ Patient ___ Family ___ Nurse ___ Physician ___ Business Technology Professor ___ Drying Can Worker ___ Other (describe below) Sacrament/Intervention _x__ Active listening ___ Anointing ___ Religious ___ Bereavement ___ Communion ___ Amy exploration ___ ___ Life review _x__ Prayer ___ Reconciliation ___ Sacrament of Sick ___ Supportive presence ___ Wedding ___ Other (describe below) Pastoral Comments
== END 2018-01-17 18:15 | disposition home health service (06) | DRG 863 ==
LOC: ED 16:12 → MS3 20:09
PROVIDERS: Family Medicine; Internal Medicine; Admitting Provider Surgery; Emergency Provider Emergency Medicine; Family Provider Family Medicine; PCP Family Medicine; Visit Provider Internal Medicine
DX: T81.4XXA Infection following a procedure, initial encounter (principal); B95.8 Unspecified staphylococcus as the cause of diseases classified elsewhere; T66.XXXS Radiation sickness, unspecified, sequela; Y84.2 Radiological procedure and radiotherapy as the cause of abnormal reaction of the patient, or of later complication, without mention of misadventure at the time of the procedure; Y92.9 Unspecified place or not applicable; Z17.0 Estrogen receptor positive status [ER+]; N65.1 Disproportion of reconstructed breast; N65.0 Deformity of reconstructed breast; L90.5 Scar conditions and fibrosis of skin; E03.9 Hypothyroidism, unspecified; D63.8 Anemia in other chronic diseases classified elsewhere; J45.909 Unspecified asthma, uncomplicated; E55.9 Vitamin D deficiency, unspecified; G47.419 Narcolepsy without cataplexy; G47.33 Obstructive sleep apnea (adult) (pediatric); G89.4 Chronic pain syndrome; M54.9 Dorsalgia, unspecified; F32.9 Major depressive disorder, single episode, unspecified; F41.9 Anxiety disorder, unspecified; E66.9 Obesity, unspecified; Z68.34 Body mass index [BMI] 34.0-34.9, adult; Z79.810 Long term (current) use of selective estrogen receptor modulators (SERMs); Z79.899 Other long term (current) drug therapy; Z85.3 Personal history of malignant neoplasm of breast; Z92.21 Personal history of antineoplastic chemotherapy; Z92.3 Personal history of irradiation; Z87.440 Personal history of urinary (tract) infections; Z87.891 Personal history of nicotine dependence; Z90.12 Acquired absence of left breast and nipple
CPT/HCPCS: 36415; 71045; 80048; 80053; 80202; 81001; 83605; 83735; 84134; 84439; 84443; 85014; 85018; 85025; 85027; 85652; 86140; 86850; 86900; 86920; 86922; 87040; 87070; 87075; 87077; 87186; 87205; 87640; 99285; J7030; J7040; J7050; J9355; P9016; A4216; J0696; J2405; J3490

== ENCOUNTER → 2018-01-24 15:38 | Outpatient (CLI) | payer BC, SELFPAY ==
[2017-09-29 13:07] VITALS: BMI 36.4
[2018-01-24 16:03] LABS: Erythrocyte Sedimentation Rate 33 mm/hr (0-20)
[2018-01-24 16:12] LABS: Hematocrit 33.2 % (37-47); Mean Corp Hgb Conc 33.1 g/gl (32-36); Mean Corpuscular Volume 87.6 fL (81-99); Mean Platelet Vol. 8.3 fl (6.2-12.0); Platelet Count 237 K/mm3 (150-450); RBC Distribution Width CV 12.7 % (11.6-14.6); RBC Distribution Width SD 39.6 fl (35.1-43.9); Red Blood Count 3.79 M/mm3 (4.2-5.4); White Blood Count 6.5 K/mm3 (4.4-11.0)
[2018-01-24 16:23] LABS: ALB/GLOB Ratio 0.8 RATIO (0.9-2.4); AST(SGOT) 25 U/L (15-37); Alanine Aminotransfer ALT/SGPT 59 U/L (13-56); Alkaline Phosphatase 124 U/L (45-117); Anion Gap 10 (5-15); BUN 13 mg/dL (7-18); BUN/Creat Ratio 15.3 RATIO (10-20); Calcium,Total 8.7 mg/dL (8.5-10.1); Chloride 105 mmol/L (98-107); Creatinine, Serum 0.85 mg/dL (0.55-1.02); EST Glomerular Filtration Rate 82 mL/min (>60); Est Glom Filt Rate - Afr Amer 99 mL/min (>60); Glucose 110 mg/dL (74-106); Potassium 3.6 mmol/L (3.5-5.1); Sodium Level 141 mmol/L (136-145)
[2018-01-24 16:50] LABS: Scan Indicated on CBC? Y/N NO
== END ==
PROVIDERS: Family Provider Family Medicine; PCP Family Medicine; Visit Provider Surgery
DX: T81.4XXA Infection following a procedure, initial encounter (principal); B96.89 Other specified bacterial agents as the cause of diseases classified elsewhere
CPT/HCPCS: 80053; 85027; 85652; 86140

== ENCOUNTER → 2018-01-27 18:30 | Outpatient (CLI) | payer BC, SELFPAY ==
[2017-09-29 13:07] VITALS: BMI 36.4
[2018-02-01 13:42] LABS: HPV APTIMA, High Risk Negative (Negative)
== END ==
PROVIDERS: Visit Provider Obstetrics & Gynecology
DX: Z12.4 Encounter for screening for malignant neoplasm of cervix (principal)
CPT/HCPCS: 88175; G0145

== ENCOUNTER 2018-01-31 09:30 | Outpatient (RCR) | payer BC, SELFPAY ==
[2017-09-29 13:07] VITALS: BMI 36.4
[2018-01-16 01:23] VITALS: RESP 16; TEMP 37.2
[2018-01-24 10:05] VITALS: BP 143/92; PULSE 100; RESP 16; TEMP 37.6
--- NOTE | 2018-01-24 20:20 | PN.PCM_ITS ---
Type of Wound Date of Service: 01/24/18 Chief Complaint: Open surgical mastectomy wound left breast after surgery . History of Wound: Surgery 01/04/18 - Revision left breast reconstruction with excision painful infected lateral radiation lumpectomy scar contour deformity with completion mastectomy. Wound care - VAC. Operative culture from recent hospitalization for infection - MRSE and Acinetobacter radioresistens. She was discharged on Ceftriaxone IV. Today she denies fever. Her appetite is average. She finished radiation therapy for her left breast cancer in October. She cannot do HBO treatments until 6 months after the radiation therapy is done which would be in April. Progress of Wound: Recent surgery 01/04/18. - Physical Exam Vital Signs Temp Pulse Resp BP 99.6 F H 100 16 143/92 H 01/24/18 10:05 01/24/18 10:05 01/24/18 10:05 01/24/18 10:05 Wound Measurements and Assessment WC - Nurse 1 - General Ulcer Measurement Start: 01/24/18 10:02 Freq: Status: Active Protocol: Activity Type Activity Date Activity User E-Sign Co-Sign Detail Recorded Client Recorded Date Recorded By Document 01/24/18 10:05 [facility] [id number] 01/24/18 10:16 [facility] 01/24/18 10:05 Wound Center Nurse 1 [Ulcer Assessment] #1- LT BREAST POST OP -Combined with other wound No -Current Size (cm) - Length 1.4 -Current Size (cm) - Width 14.6 -Current Size (cm) - Depth 3.1 -Total Square Cm 20.44 -Photo Taken No -Epithelialization None Present -Tunneling No -Undermining/Tunneling Yes -Undermining/Tunneling Starts (O' 8 clock) -Undermining/Tunneling Ends (O'clock) 12 -Maximum Distance (cm) 3.5 -Circular Undermining No -Exudate Amt Large (67-100%) -Exudate Type Serosanguineous -Wound Margin Distinct, Outline Attached -Granulation Amt Small (1-33%) -Granulation Quality Red -Slough/Fibrin Yes -Necrosis Amt Large (67-100%) -Necrotic Tissue Type Adherent Slough -Texture (Anni-wound Skin Appearance) Scarring -Moisture (Anni-wound Skin Appearance Dry/Scaly ) -Color (Anni-wound Skin Appearance) Assessed -Temperature (Anni-wound Skin No Abnormality Appearance) (Pt Warm) -Tenderness on Palpation (Anni-wound Yes Skin Appearance) -Ulcer Cleansing Rinsed/ Irrigated with Saline -Foul Odor after Cleansing No -Anesthetic Used 4% Lidocaine Solution DENIA - Nurse 2 - General Ulcer CM Notes Start: 01/24/18 10:02 Freq: Status: Active Protocol: Activity Type Activity Date Activity User E-Sign Co-Sign Detail Recorded Client Recorded Date Recorded By Document 01/24/18 10:54 TAE [id number] 01/24/18 10:58 TAE 01/24/18 10:54 Wound Center Nurse 2 [Procedure/Treatment] -Time 10:57 -Correct Patient Yes -Correct Side, Site, Position Yes -Correct Procedure Yes -Procedure Performed Yes -Type of Procedure Debridement -Clinical Debridement Subcutaneous -Post Debridement Size (cm) - Length 1.5 -Post Debridement Size (cm) - Width 14.6 -Post Debridement Size (cm) - Depth 3.2 -Total Square Cm 21.90 -Wound/Ulcer Outcome Not Healed -Ulcer Cleansing Rinsed/ Irrigated with Saline -Foul Odor after Cleansing No -Bioengineered Tissue No -Bleeding Controlled with Pressure -Treatment Response Procedure Tolerated Well [See Physician Procedure note for Specifics] Pain Scale: 0-10 Numeric [Pain] -Is Patient Pain Free? Yes Debridement Note Post-Debridement Measurements/Treatment DENIA - Nurse 2 - General Ulcer CM Notes Start: 01/24/18 10:02 Freq: Status: Active Protocol: Activity Type Activity Date Activity User E-Sign Co-Sign Detail Recorded Client Recorded Date Recorded By Document 01/24/18 10:54 TAE [id number] 01/24/18 10:58 01/24/18 10:54 Wound Center Nurse 2 #1- LT BREAST POST OP -Time 10:57 -Correct Patient Yes -Correct Side, Site, Position Yes -Correct Procedure Yes -Procedure Performed Yes -Type of Procedure Debridement -Clinical Debridement Subcutaneous -Post Debridement Size (cm) - Length 1.5 -Post Debridement Size (cm) - Width 14.6 -Post Debridement Size (cm) - Depth 3.2 -Total Square Cm 21.90 -Wound/Ulcer Outcome Not Healed -Ulcer Cleansing Rinsed/ Irrigated with Saline -Foul Odor after Cleansing No -Bioengineered Tissue No -Bleeding Controlled with Pressure -Treatment Response Procedure Tolerated Well Pain Scale: 0-10 Numeric Is Patient Pain Free? Yes Wound debrided: #1 Left breast. Laterality: Left Wound Grade/Stage: 2. Type of Debridement: Excisional debridement Anesthesia Used: 4% Lidocaine Solution Depth: Down to and including healthy tissue, in the subcutaneous layer Percentage of wound debrided: 100 Instrument Used: 7mm curette Tissue Removed: subcutaneous tissue. Severity: Fat Layer Exposed Amount of bleeding with debridement: Mild Bleeding Controlled with: Pressure Patient tolerated procedure well Assessment/Plan Assessment: 1. Left breast cancer. 2. s/p lumpectomy with chemotherapy and radiation therapy. 3. Post-lumpectomy painful indentation scar contour deformity left lateral breast. 4. Late effect radiation left breast. 5. Disproportion reconstructed left breast. 6. Post-lumpectomy infected seroma left lateral breast. 7. s/p revision left breast reconstruction with excision painful infected lateral radiation lumpectomy scar contour deformity with completion mastectomy. Plan: Start a VAC holiday secondary to pain. Begin Silver dressing changes daily. There was the beginning of fluid builup medially in the mastectomy wound. Instructed the patient on making sure the packing goes farther medially to minimize further fluid collection that can become infected. She states she had a low grade temp last night and she was probably developing an early infection. She cannot do HBO until 6 months after radiation is finished. She can be re-evaluated in April for HBO. She has been having trouble with Ceftriaxone during the day. Will have it administered at night. Encourage nutritional supplementation with protein to help the healing process. Followup one week.
[2018-01-31 09:41] VITALS: BP 160/96; PULSE 105; RESP 16; TEMP 36.3
--- NOTE | 2018-01-31 23:22 | PCM.WC.PN ---
Type of Wound Date of Service: 01/31/18 Chief Complaint: Open surgical mastectomy wound left breast after surgery 01/04/18. History of Wound: Surgery 01/04/18 - Revision left breast reconstruction with excision painful infected lateral radiation lumpectomy scar contour deformity with completion mastectomy. Wound care - Silver with a VAC holiday. Operative culture from recent hospitalization for infection - MRSE and Acinetobacter radioresistens. She was discharged on Ceftriaxone She is tolerating it better at night. Today she denies fever. Her appetite is average. She finished radiation therapy for her left breast cancer in October. She cannot do HBO treatments until 6 months after the radiation therapy is done which would be in April. Progress of Wound: Slightly improved. - Physical Exam Vital Signs Temp Pulse Resp BP 97.3 F L 105 H 16 160/96 H 01/31/18 09:41 01/31/18 09:41 01/31/18 09:41 01/31/18 09:41 Wound Measurements and Assessment WC - Nurse 1 - General Ulcer Measurement Start: 01/24/18 10:02 Freq: Status: Active Protocol: Activity Type Activity Date Activity User E-Sign Co-Sign Detail Recorded Client Recorded Date Recorded By Document 01/31/18 09:41 [facility] [id number] 01/31/18 09:59 BM 01/31/18 09:41 Wound Center Nurse 1 [Ulcer Assessment] #1- LT BREAST POST OP -Combined with other wound No -Current Size (cm) - Length 0.9 -Current Size (cm) - Width 13.5 -Current Size (cm) - Depth 3.4 -Total Square Cm 12.15 -Photo Taken No -Epithelialization None Present -Tunneling No -Undermining/Tunneling Yes -Undermining/Tunneling Starts (O' 8 clock) -Undermining/Tunneling Ends (O'clock) 12 -Maximum Distance (cm) 4.5 -Circular Undermining No -Exudate Amt Medium (34-66%) -Exudate Type Serosanguineous -Wound Margin Distinct, Outline Attached -Granulation Amt Medium (34-66%) -Granulation Quality Red -Slough/Fibrin Yes -Necrosis Amt Medium (34-66%) -Necrotic Tissue Type Adherent Slough -Texture (Anni-wound Skin Appearance) Scarring -Moisture (Anni-wound Skin Appearance Assessed ) -Color (Anni-wound Skin Appearance) Assessed -Temperature (Anni-wound Skin No Abnormality Appearance) (Pt Warm) -Tenderness on Palpation (Anni-wound Yes Skin Appearance) -Ulcer Cleansing Rinsed/ Irrigated with Saline -Foul Odor after Cleansing No -Anesthetic Used 4% Lidocaine Solution - Nurse 2 - General Ulcer CM Notes Start: 01/24/18 10:02 Freq: Status: Active Protocol: Activity Type Activity Date Activity User E-Sign Co-Sign Detail Recorded Client Recorded Date Recorded By Document 01/31/18 10:19 [id number] 01/31/18 10:20 01/31/18 10:19 Wound Center Nurse 2 [Procedure/Treatment] -Time 10:20 -Correct Patient Yes -Correct Side, Site, Position Yes -Correct Procedure Yes -Procedure Performed Yes -Type of Procedure Debridement -Clinical Debridement Subcutaneous -Post Debridement Size (cm) - Length 1.0 -Post Debridement Size (cm) - Width 13.5 -Post Debridement Size (cm) - Depth 3.5 -Total Square Cm 13.50 -Wound/Ulcer Outcome Not Healed -Ulcer Cleansing Rinsed/ Irrigated with Saline -Foul Odor after Cleansing No -Bioengineered Tissue No -Bleeding Controlled with Pressure -Treatment Response Procedure Tolerated Well [See Physician Procedure note for Specifics] Pain Scale: 0-10 Numeric [Pain] -Is Patient Pain Free? Yes Debridement Note Post-Debridement Measurements/Treatment - Nurse 2 - General Ulcer CM Notes Start: 01/24/18 10:02 Freq: Status: Active Protocol: Activity Type Activity Date Activity User E-Sign Co-Sign Detail Recorded Client Recorded Date Recorded By Document 01/24/18 10:54 [id number] 01/24/18 10:58 Document 01/31/18 10:19 [id number] 01/31/18 10:20 01/24/18 01/31/18 10:54 10:19 Wound Center Nurse 2 #1- LT BREAST POST OP -Time 10:57 10:20 -Correct Patient Yes Yes -Correct Side, Site, Position Yes Yes -Correct Procedure Yes Yes -Procedure Performed Yes Yes -Type of Procedure Debridement Debridement -Clinical Debridement Subcutaneous Subcutaneous -Post Debridement Size (cm) - Length 1.5 1.0 -Post Debridement Size (cm) - Width 14.6 13.5 -Post Debridement Size (cm) - Depth 3.2 3.5 -Total Square Cm 21.90 13.50 -Wound/Ulcer Outcome Not Healed Not Healed -Ulcer Cleansing Rinsed/ Rinsed/ Irrigated with Irrigated with Saline Saline -Foul Odor after Cleansing No No -Bioengineered Tissue No No -Bleeding Controlled with Pressure Pressure -Treatment Response Procedure Procedure Tolerated Well Tolerated Well Pain Scale: 0-10 Numeric Is Patient Pain Free? Yes Yes Wound debrided: #1 Left breast. Laterality: Left Wound Grade/Stage: 2. Type of Debridement: Excisional debridement Anesthesia Used: 4% Lidocaine Solution Depth: Down to and including healthy tissue, in the subcutaneous layer Percentage of wound debrided: 100 Instrument Used: 7mm curette Tissue Removed: subcutaneous tissue. Severity: Fat Layer Exposed Amount of bleeding with debridement: Mild Bleeding Controlled with: Pressure Patient tolerated procedure well Assessment/Plan Assessment: 1. Left breast cancer. 2. s/p lumpectomy with chemotherapy and radiation therapy. 3. Post-lumpectomy painful indentation scar contour deformity left lateral breast. 4. Late effect radiation left breast. 5. Disproportion reconstructed left breast. 6. Post-lumpectomy infected seroma left lateral breast. 7. s/p revision left breast reconstruction with excision painful infected lateral radiation lumpectomy scar contour deformity with completion mastectomy. Plan: Continue Silver dressing changes daily. Stop the VAC. The mastectomy wound continues to improve with no more evidence of fluid buildup medially. Instructed the patient on making sure the packing goes farther medially to minimize further fluid collection that can become infected. She cannot do HBO until 6 months after radiation is finished. She can be re-evaluated in April for HBO. Continue Ceftriaxone daily at night for the Acinetobacter radioresistens and MRSE. Encourage nutritional supplementation with protein to help the healing process. She states she is getting too spacy and wants to cut back on her meds. Will wean the Neurontin slowly over the next couple of weeks. Continue the Duragesic Patch, 50 mcg. Will stop the Valium. Will make the Phenergan as needed for nausea. Followup 2 weeks.
== END 2018-02-14 23:59 ==
LOC: WC 09:30
PROVIDERS: Family Provider Family Medicine; PCP Family Medicine; Visit Provider Surgery
DX: L59.8 Other specified disorders of the skin and subcutaneous tissue related to radiation (principal); N65.1 Disproportion of reconstructed breast; T81.4XXA Infection following a procedure, initial encounter; N61.0 Mastitis without abscess; Y83.8 Other surgical procedures as the cause of abnormal reaction of the patient, or of later complication, without mention of misadventure at the time of the procedure; L90.5 Scar conditions and fibrosis of skin; Z92.21 Personal history of antineoplastic chemotherapy; Z92.3 Personal history of irradiation
CPT/HCPCS: 11042; 11045

== ENCOUNTER 2018-01-31 16:17 | Emergency (ER) | payer BC, SELFPAY ==
[2017-09-29 13:07] VITALS: BMI 36.4
[2018-01-31 16:19] VITALS: BP 154/112; PULSE 111; PULSE 115; RESP 20; TEMP 37.3; O2SAT 97; O2SAT 99; BMI 35.7
--- NOTE | 2018-01-31 17:10 | EKG12_ITS ---
Test Reason : Blood Pressure : / mmHG Vent. Rate : 094 BPM Atrial Rate : 094 BPM P-R Int : 158 ms QRS Dur : 078 ms QT Int : 374 ms P-R-T Axes : 050 037 031 degrees QTc Int : 467 ms Normal sinus rhythm Nonspecific T wave abnormality Prolonged QT Abnormal ECG Confirmed by LORENZO DIAZ ([id number]), marketing editor BUZZ GALARZA ([id number] on 02/03/2018 2:40:11 PM Referred By: CARMELINA Confirmed By:LORENZO DIAZ
--- NOTE | 2018-01-31 17:11 | CT_ITS ---
STUDY: CT BRAIN WITHOUT CONTRAST REASON FOR EXAM: Female, 32 years old. Full body trembling. Recent mastectomy. RADIATION DOSAGE (If Supplied By Facility): CTDIvol = ( 44.99 ) mGy, DLP = ( 846.73 ) mGycm TECHNIQUE: Transaxial CT imaging of the brain was performed without administration of intravenous contrast material. Individualized dose optimization techniques were used for this CT. COMPARISON: None. FINDINGS: Normal soft tissue structures. Normal calvarium. Normal size ventricles and extra-axial spaces for the patient's age. Normal white matter tracts of the cerebral hemispheres. Normal basal ganglia and thalami. Normal brainstem. Normal cerebellum. There is no intracranial hemorrhage. There are no findings of an acute ischemic infarction. Normal visualized paranasal sinuses. CT/Brain/Head without Contrast IMPRESSION: Normal unenhanced CT scan of the brain. Electronically Signed: Arnaldo Sandhu DO at 18:30 EDT Tel , Service support ,
--- NOTE | 2018-01-31 18:00 | RAD_ITS ---
STUDY: X-RAY CHEST REASON FOR EXAM: Female, 32 years old. Full body shaking. Recent mastectomy TECHNIQUE: PA and lateral views of the chest. COMPARISON: 01/13/2018 FINDINGS: Right chest wall Mediport with tip in the mid SVC. The lungs are clear and expanded. There is no demonstrated pleural abnormality. Normal size heart. Normal mediastinum and alie. Normal visualized pulmonary arteries. Normal visualized aortic arch and descending thoracic aorta. Normal visualized thoracic spine. Normal visualized ribs, clavicles, and shoulders. There is no demonstrated abnormality of the visualized soft tissue structures of the upper abdomen. RAD/Chest PA and Lateral IMPRESSION: Normal x-ray examination of the chest. Electronically Signed: Arnaldo Sandhu DO at 18:27 EDT Tel , Service support ,
[2018-01-31 18:06] LABS: Absolute Lymphocyte Count 1.34 X10^3/ul (0.83-4.51); Absolute Neutrophil Count 3.4 X10^3/uL (2.0-7.7); Basophil# 0.02 X10^3/uL; Basophil% 0.4 % (0-1); Eosinophil# 0.14 X10^3/uL; Eosinophils% 2.7 % (0-5); Hematocrit 29.2 % (37-47); Hemoglobin 9.5 g/dl (12.0-15.0); Lymphocyte # 1.34 X10^3/ul (4.0); Lymphocyte % 25.9 % (19-41); Mean Corp Hgb Conc 32.5 g/gl (32-36); Mean Corpuscular Hgb 27.8 pg (27.0-32.0); Mean Corpuscular Volume 85.4 fL (81-99); Mean Platelet Vol. 7.8 fl (6.2-12.0); Monocyte# 0.26 X10^3/uL; Neutrophil % 65.8 % (47-70); POSITIVE COUNT NO; POSITIVE DIFFERENTIAL NO; POSITIVE MORPHOLOGY NO; Platelet Count 144 K/mm3 (150-450); RBC Distribution Width CV 13.1 % (11.6-14.6); RBC Distribution Width SD 40.6 fl (35.1-43.9); Red Blood Count 3.42 M/mm3 (4.2-5.4); White Blood Count 5.2 K/mm3 (4.4-11.0)
[2018-01-31 18:07] LABS: ALB/GLOB Ratio 0.8 RATIO (0.9-2.4); AST(SGOT) 22 U/L (15-37); Alanine Aminotransfer ALT/SGPT 38 U/L (13-56); Alkaline Phosphatase 126 U/L (45-117); Anion Gap 8 (5-15); BUN 14 mg/dL (7-18); BUN/Creat Ratio 17.7 RATIO (10-20); Calcium,Total 8.5 mg/dL (8.5-10.1); Chloride 109 mmol/L (98-107); Creatinine, Serum 0.79 mg/dL (0.55-1.02); EST Glomerular Filtration Rate 88 mL/min (>60); Est Glom Filt Rate - Afr Amer 107 mL/min (>60); Estimated Creatinine Clearance 102.17 ml/min; Globulin 3.7 g/dL (2.2-4.2); Glucose 87 mg/dL (74-106); Potassium 3.7 mmol/L (3.5-5.1); Protein, Total 6.7 g/dL (6.4-8.2); Sodium Level 143 mmol/L (136-145)
[2018-01-31 18:32] LABS: Lactic Acid 0.7 mmol/L (0.4-2.0)
[2018-01-31 19:07] LABS: Bacteria 0 SEEN /hpf (None Seen); Red Blood Cells-Urine 0 SEEN /hpf (0-5); White Blood Cells 0 SEEN /hpf (0-5)
[2018-01-31 19:28] VITALS: BP 102/76; PULSE 99; RESP 20; O2SAT 96
[2018-01-31] MEDS: 0.9% Normal Saline 1,000 ML 1000 ML IV (19:28)
[2018-01-31 19:31] LABS: Color, Urine Yellow (Yellow); Glucose, Dipstick Normal (Normal); Ketone-Dipstick 5 mg/dl (Negative); Leukocyte Esterase-Dipstick Negative /ul (Negative); Nitrite-Dipstick Negative (Negative); Occult Blood-Urine Negative /ul (Negative); Protein-Dipstick 15 mg/dl (Negative); Urine Bilirubin Dipstick Negative (Negative); Urine Clarity Sl. Cloudy (Clear); Urine Urobilinogen Normal (Normal)
[2018-01-31 19:50] LABS: Mucous, Urine 2+ /hpf (<or=2+); Squamous Epithelial Cells - UA 0-5 SEEN /hpf (5-10)
--- NOTE | 2018-01-31 20:19 | ED.VISSUMM ---
- ER Visit Summary Date of Service: 01/31/18 Chief Complaint: Tremors History of Present Illness: The patient is a 32 F who presents with tremors. She states that today she began to have shaking and tremors. She did not have chills or sweats no fevers. She felt generally weak. She felt like everything was slow and delayed she felt somewhat disoriented. She states she was aware but that it was hard to focus. She is actually had prior similar symptoms. She states today seemed worse. She does have a history of breast cancer and completing chemo in August 2017 and radiation in October. She had a mastectomy. Postoperatively she did develop an infection and had a wound VAC was admitted about 2 weeks ago. She is currently receiving IV antibiotics at home. Saw her surgeon this morning who checked her wound and stated it was well-healing and it was repacked. Physical Examination: Afebrile initial heart rate 111 she was hypertensive at 154/112 Heart regular rhythm tachycardia Lungs are clear Abdomen soft The left chest wound is clean and dry Alert Test Results: EKG shows sinus rhythm at a rate of 94. Laboratory studies notable for hemoglobin 9.5. Lactic acid normal. Urinalysis normal. Chest x-ray and CT head are all normal. Emergency Department Course and Treatment: Patient's workup is unremarkable here. On reevaluation she feels better. She has had no recurrence of symptoms. Her vitals are normal on reevaluation. We discussed hospital observation. The patient would like to go home. I do believe this is reasonable given her unremarkable workup here. She was advised to follow-up as an outpatient. She understands to return for new or worsening symptoms. She was discharged. Treatment Plan: [] Disposition: Discharge Impression: Tremors Postoperative left chest wound infection This note was generated with [employer] dictation software. It may contain incorrect words, spelling, and punctuation that were not noted in review of the chart prior to signing ED Disposition - Plan for ED Patient: Chief Complaint: General Illness Referrals: Rhett Elias MD [Primary Care Provider] -
--- NOTE | 2018-01-31 20:21 | ED.DEP ---
ED Disposition - Plan for ED Patient: Chief Complaint: General Illness Instructions: ED Wound Infec After Surgery Referrals: Rhett Elias MD [Primary Care Provider] - Jose Robertson MD [STAFF PHYSICIAN] -
[2018-01-31 20:33] VITALS: BP 115/70; PULSE 95; RESP 14; O2SAT 99
== END 2018-01-31 20:45 | disposition home or self-care (01) ==
PROVIDERS: Emergency Provider Emergency Medicine; Family Provider Family Medicine; PCP Family Medicine
DX: R25.1 Tremor, unspecified (principal); T81.4XXA Infection following a procedure, initial encounter; Z79.899 Other long term (current) drug therapy; Z85.3 Personal history of malignant neoplasm of breast; Z92.21 Personal history of antineoplastic chemotherapy; Z87.891 Personal history of nicotine dependence; Z90.10 Acquired absence of unspecified breast and nipple
CPT/HCPCS: 70450; 71046; 80053; 81001; 83605; 85025; 87040; 93005; 96360; 99285; J7030; A4216

== ENCOUNTER → 2018-01-31 16:48 | Outpatient (CLI) | payer BC, SELFPAY ==
[2017-09-29 13:07] VITALS: BMI 36.4
[2018-01-31 17:13] LABS: BUN 14 mg/dL (7-18); Creatinine, Serum 0.84 mg/dL (0.55-1.02); Glucose 93 mg/dL (74-106)
[2018-01-31 17:14] LABS: ALB/GLOB Ratio 0.8 RATIO (0.9-2.4); AST(SGOT) 22 U/L (15-37); Alanine Aminotransfer ALT/SGPT 39 U/L (13-56); Albumin, Serum 2.8 g/dL (3.2-5.0); Alkaline Phosphatase 124 U/L (45-117); Anion Gap 7 (5-15); BUN/Creat Ratio 16.6 RATIO (10-20); Calcium,Total 8.2 mg/dL (8.5-10.1); Chloride 110 mmol/L (98-107); EST Glomerular Filtration Rate 82 mL/min (>60); Est Glom Filt Rate - Afr Amer 100 mL/min (>60); Globulin 3.7 g/dL (2.2-4.2); Potassium 3.5 mmol/L (3.5-5.1); Protein, Total 6.5 g/dL (6.4-8.2); Sodium Level 144 mmol/L (136-145)
[2018-01-31 17:23] LABS: Erythrocyte Sedimentation Rate 18 mm/hr (0-20)
[2018-01-31 17:56] LABS: Hematocrit 29.1 % (37-47); Hemoglobin 9.5 g/dl (12.0-15.0); Mean Corp Hgb Conc 32.6 g/gl (32-36); Mean Corpuscular Hgb 28.6 pg (27.0-32.0); Mean Corpuscular Volume 87.7 fL (81-99); Mean Platelet Vol. 8.4 fl (6.2-12.0); Platelet Count 178 K/mm3 (150-450); RBC Distribution Width CV 12.7 % (11.6-14.6); Red Blood Count 3.32 M/mm3 (4.2-5.4); White Blood Count 5.3 K/mm3 (4.4-11.0)
[2018-01-31 18:02] LABS: Scan Indicated on CBC? Y/N NO
== END ==
PROVIDERS: Family Provider Family Medicine; PCP Family Medicine; Visit Provider Surgery
DX: T81.4XXA Infection following a procedure, initial encounter (principal); B96.89 Other specified bacterial agents as the cause of diseases classified elsewhere
CPT/HCPCS: 80053; 85027; 85652; 86140

== ENCOUNTER → 2018-02-14 15:53 | Outpatient (CLI) | payer BC, SELFPAY ==
[2017-09-29 13:07] VITALS: BMI 36.4
[2018-02-14 16:39] LABS: Hematocrit 33.4 % (37-47); Hemoglobin 10.9 g/dl (12.0-15.0); Mean Corp Hgb Conc 32.6 g/gl (32-36); Mean Corpuscular Hgb 27.5 pg (27.0-32.0); Mean Corpuscular Volume 84.1 fL (81-99); Mean Platelet Vol. 8.5 fl (6.2-12.0); Platelet Count 145 K/mm3 (150-450); RBC Distribution Width CV 13.7 % (11.6-14.6); RBC Distribution Width SD 41.2 fl (35.1-43.9); Red Blood Count 3.97 M/mm3 (4.2-5.4); White Blood Count 5.4 K/mm3 (4.4-11.0)
[2018-02-14 16:43] LABS: Scan Indicated on CBC? Y/N NO
[2018-02-14 16:55] LABS: ALB/GLOB Ratio 0.9 RATIO (0.9-2.4); AST(SGOT) 20 U/L (15-37); Alanine Aminotransfer ALT/SGPT 34 U/L (13-56); Albumin, Serum 3.4 g/dL (3.2-5.0); Alkaline Phosphatase 106 U/L (45-117); Anion Gap 8 (5-15); BUN 12 mg/dL (7-18); BUN/Creat Ratio 11.9 RATIO (10-20); CRP 8.28 mg/L (0.0-3.0); Calcium,Total 8.9 mg/dL (8.5-10.1); Chloride 108 mmol/L (98-107); Creatinine, Serum 1.01 mg/dL (0.55-1.02); EST Glomerular Filtration Rate 67 mL/min (>60); Est Glom Filt Rate - Afr Amer 81 mL/min (>60); Globulin 3.6 g/dL (2.2-4.2); Glucose 97 mg/dL (74-106); Potassium 3.8 mmol/L (3.5-5.1); Sodium Level 140 mmol/L (136-145)
[2018-02-14 17:01] LABS: Erythrocyte Sedimentation Rate 9 mm/hr (0-20)
== END ==
PROVIDERS: Family Provider Family Medicine; PCP Family Medicine; Visit Provider Surgery
DX: T81.4XXA Infection following a procedure, initial encounter (principal); B96.89 Other specified bacterial agents as the cause of diseases classified elsewhere
CPT/HCPCS: 80053; 85027; 85652; 86140

== ENCOUNTER → 2018-02-21 15:53 | Outpatient (CLI) | payer BC, SELFPAY ==
[2017-09-29 13:07] VITALS: BMI 36.4
[2018-02-21 16:03] LABS: Hematocrit 30.4 % (37-47); Hemoglobin 10.1 g/dl (12.0-15.0); Mean Corp Hgb Conc 33.2 g/gl (32-36); Mean Corpuscular Hgb 28.1 pg (27.0-32.0); Mean Corpuscular Volume 84.4 fL (81-99); Mean Platelet Vol. 8.6 fl (6.2-12.0); Platelet Count 143 K/mm3 (150-450); RBC Distribution Width CV 13.1 % (11.6-14.6); RBC Distribution Width SD 39.3 fl (35.1-43.9); White Blood Count 4.1 K/mm3 (4.4-11.0)
[2018-02-21 16:17] LABS: ALB/GLOB Ratio 0.9 RATIO (0.9-2.4); AST(SGOT) 29 U/L (15-37); Alanine Aminotransfer ALT/SGPT 44 U/L (13-56); Albumin, Serum 3.2 g/dL (3.2-5.0); Alkaline Phosphatase 104 U/L (45-117); Anion Gap 7 (5-15); BUN 15 mg/dL (7-18); BUN/Creat Ratio 15.2 RATIO (10-20); CRP 6.66 mg/L (0.0-3.0); Calcium,Total 8.6 mg/dL (8.5-10.1); Chloride 110 mmol/L (98-107); Creatinine, Serum 0.99 mg/dL (0.55-1.02); EST Glomerular Filtration Rate 68 mL/min (>60); Est Glom Filt Rate - Afr Amer 83 mL/min (>60); Globulin 3.4 g/dL (2.2-4.2); Glucose 95 mg/dL (74-106); Potassium 3.8 mmol/L (3.5-5.1); Protein, Total 6.6 g/dL (6.4-8.2); Sodium Level 143 mmol/L (136-145)
[2018-02-21 16:19] LABS: Scan Indicated on CBC? Y/N NO
[2018-02-21 16:28] LABS: Erythrocyte Sedimentation Rate 4 mm/hr (0-20)
== END ==
PROVIDERS: Visit Provider Surgery
DX: T81.4XXA Infection following a procedure, initial encounter (principal); B96.89 Other specified bacterial agents as the cause of diseases classified elsewhere
CPT/HCPCS: 80053; 85027; 85652; 86140

== ENCOUNTER 2018-03-07 06:16 | Day surgery (SDC) | payer BC, SELFPAY ==
[2017-09-29 13:07] VITALS: BMI 36.4
[2018-03-07 06:35] VITALS: BP 135/103; PULSE 109; RESP 14; TEMP 36.2; O2SAT 98; BMI 32.8
[2018-03-07 07:58] VITALS: BP 125/85; BP 135/103; PULSE 92; RESP 14; TEMP 36.1; O2SAT 99
[2018-03-07 08:03] VITALS: BP 119/69; BP 135/103; PULSE 87; RESP 16; O2SAT 98
[2018-03-07 08:08] VITALS: BP 120/84; BP 135/103; PULSE 84; RESP 16; O2SAT 97
[2018-03-07 08:13] VITALS: BP 135/103; BP 99/75; PULSE 88; RESP 16; TEMP 36.3; O2SAT 98
--- NOTE | 2018-03-07 08:15 | PCM.OPRPT ---
Problem List (1) GERD (gastroesophageal reflux disease) Status: Acute Qualifiers: Esophagitis presence: without esophagitis Qualified Code(s): K21.9 - Gastro-esophageal reflux disease without esophagitis (2) Family history of colon cancer in father Status: Acute Report of Operation Date of Procedure: 03/07/18 Pre-Operative Diagnosis: k21.9 GERD. z80.0 family history of colon cancer (father) Post-Operative Diagnosis: Same Surgery/Procedure Performed:: 02481 esophagogastroduodenoscopy [place]. 89044 colonoscopy Type of Anesthesia:: MAC Anesthesiologist: Cyrus Jeff Description of Procedure: Patient was brought into the endoscopy suite. Back of her throat was sprayed with Cetacaine spray. She was placed on the left lateral decubitus side. She was given graded anesthesia. A bite-block was placed. Scope was inserted in the back of the oropharynx. It was directed down through the esophagus into the stomach and into the duodenum without difficulty. Operative findings: 1. Duodenum: Normal appearance no mass lesions no ulcerations no signs of bleeding. 2. Stomach: Normal appearance no mass lesions no ulcerations. Minimal gastritis was identified. Biopsy for H. pylori was obtained. Retroflexion did not show any signs of hiatal hernia. 3. Esophagus: Normal appearance no mass lesions Z line was at 37 cm there was absolutely no signs of erythema. Colonoscope was inserted into the rectum. It was directed through the sigmoid colon, descending colon, transverse colon, ascending colon, to the cecum. Operative findings: 1. Cecum: Normal appearance no mass lesions normal ileocecal valve. 2. Ascending colon: Normal appearance no mass lesions. 3. Transverse colon: Normal appearance no mass lesions. 4. Descending colon: Normal appearance no mass lesions. 5. Sigmoid colon: Normal appearance no mass lesions. 6. Rectum: Normal appearance no mass lesions retroflexion did show a few internal hemorrhoids which were not actively bleeding. Scope was withdrawn digital rectal exam was performed showing no masses within the anus. She will need to have another colonoscopy in 5 years secondarily to family history of colon cancer. - Admit VTE Documentation VTE Present on Admission: No VTE Mechan Device Prophylaxis: None VTE Pharm Prophylaxis ordered?: No Reason prophylaxis not ordered:: Treatment Not Indicated
--- NOTE | 2018-03-07 08:20 | OP.PCM_ITS ---
Problem List (1) GERD (gastroesophageal reflux disease) Status: Acute Qualifiers: Esophagitis presence: without esophagitis Qualified Code(s): K21.9 - Gastro -esophageal reflux disease without esophagitis (2) Family history of colon cancer in father Status: Acute Report of Operation Date of Procedure: 03/07/18 Pre-Operative Diagnosis: k21.9 GERD. z80.0 family history of colon cancer ( father) Post-Operative Diagnosis: Same Surgery/Procedure Performed:: 82437 esophagogastroduodenoscopy with biopsy. 92657 colonoscopy Type of Anesthesia:: MAC Anesthesiologist: Cyrus Jeff Description of Procedure: Patient was brought into the endoscopy suite. Back of her throat was sprayed with Cetacaine spray. She was placed on the left lateral decubitus side. She was given graded anesthesia. A bite-block was placed. Scope was inserted in the back of the oropharynx. It was directed down through the esophagus into the stomach and into the duodenum without difficulty. Operative findings: 1. Duodenum: Normal appearance no mass lesions no ulcerations no signs of bleeding. 2. Stomach: Normal appearance no mass lesions no ulcerations. Minimal gastritis was identified. Biopsy for H. pylori was obtained. Retroflexion did not show any signs of hiatal hernia. 3. Esophagus: Normal appearance no mass lesions Z line was at 37 cm there was absolutely no signs of erythema. Colonoscope was inserted into the rectum. It was directed through the sigmoid colon, descending colon, transverse colon, ascending colon, to the cecum. Operative findings: 1. Cecum: Normal appearance no mass lesions normal ileocecal valve. 2. Ascending colon: Normal appearance no mass lesions. 3. Transverse colon: Normal appearance no mass lesions. 4. Descending colon: Normal appearance no mass lesions. 5. Sigmoid colon: Normal appearance no mass lesions. 6. Rectum: Normal appearance no mass lesions retroflexion did show a few internal hemorrhoids which were not actively bleeding. Scope was withdrawn digital rectal exam was performed showing no masses within the anus. She will need to have another colonoscopy in 5 years secondarily to family history of colon cancer. - Admit VTE Documentation VTE Present on Admission: No VTE Mechan Device Prophylaxis: None VTE Pharm Prophylaxis ordered?: No Reason prophylaxis not ordered:: Treatment Not Indicated
[2018-03-07 08:39] VITALS: BP 135/103
== END 2018-03-07 08:30 | disposition home or self-care (01) ==
LOC: EN 06:17 → AC 06:18
PROVIDERS: Family Provider Family Medicine; PCP Family Medicine; Visit Provider Surgery
PROC: 0DJD8ZZ Inspection of Lower Intestinal Tract, Via Natural or Artificial Opening Endoscopic (ICD-10-PCS; CPT 45378; principal; 2018-03-07 07:25)
DX: K29.70 Gastritis, unspecified, without bleeding (principal); K64.8 Other hemorrhoids; E03.9 Hypothyroidism, unspecified; E55.9 Vitamin D deficiency, unspecified; J45.909 Unspecified asthma, uncomplicated; G47.30 Sleep apnea, unspecified; K21.9 Gastro-esophageal reflux disease without esophagitis; F32.9 Major depressive disorder, single episode, unspecified; F41.9 Anxiety disorder, unspecified; Z79.899 Other long term (current) drug therapy; Z85.3 Personal history of malignant neoplasm of breast; Z87.891 Personal history of nicotine dependence; Z87.440 Personal history of urinary (tract) infections; Z87.01 Personal history of pneumonia (recurrent); Z90.12 Acquired absence of left breast and nipple; Z80.0 Family history of malignant neoplasm of digestive organs
CPT/HCPCS: 43239; 45378; J7120; A4216

== ENCOUNTER 2018-03-15 15:30 | Outpatient (RCR) | payer BC, SELFPAY ==
[2017-09-29 13:07] VITALS: BMI 36.4
[2018-02-15 01:02] VITALS: PULSE 105; RESP 16; TEMP 36.3
[2018-02-15 14:38] VITALS: BP 136/100; PULSE 110; RESP 18; TEMP 36.2
--- NOTE | 2018-02-15 20:51 | PCM.WC.PN ---
Type of Wound Date of Service: 02/15/18 Chief Complaint: Open surgical mastectomy wound left breast after surgery 01/04/18. History of Wound: Surgery 01/04/18 - Revision left breast reconstruction with excision painful infected lateral radiation lumpectomy scar contour deformity with completion mastectomy. Wound care - Silver. Operative culture from recent hospitalization for infection - MRSE and Acinetobacter radioresistens. She was discharged on Ceftriaxone until 02/27/18. She is tolerating it better at night. Today she denies fever. Her appetite is average. She finished radiation therapy for her left breast cancer in October. She cannot do HBO treatments until 6 months after the radiation therapy is done which would be in April. Progress of Wound: Slightly improved. - Physical Exam Vital Signs Temp Pulse Resp BP 97.1 F L 110 H 18 136/100 H 02/15/18 14:38 02/15/18 14:38 02/15/18 14:38 02/15/18 14:38 Wound Measurements and Assessment WC - Nurse 1 - General Ulcer Measurement Start: 02/15/18 14:38 Freq: Status: Active Protocol: Activity Type Activity Date Activity User E-Sign Co-Sign Detail Recorded Client Recorded Date Recorded By Document 02/15/18 14:38 [id number] 02/15/18 15:02 TM 02/15/18 14:38 Wound Center Nurse 1 [Ulcer Assessment] #1- LT BREAST POST OP -Combined with other wound No -Current Size (cm) - Length 1.0 -Current Size (cm) - Width 11.0 -Current Size (cm) - Depth 2.0 -Total Square Cm 11.00 -Photo Taken No -Epithelialization Small 1-33% -Tunneling No -Undermining/Tunneling Yes -Undermining/Tunneling Starts (O' 10 clock) -Undermining/Tunneling Ends (O'clock) 12 -Maximum Distance (cm) 3.0 -Undermining/Tunneling Starts #2 (O' 12 clock) -Undermining/Tunneling Ends #2 (O' 2 clock) -Maximum Distance #2 (cm) 2.3 -Circular Undermining No -Classification - Thickness Full Thickness without Exposed Support Structure -Exudate Amt Small (1-33%) -Exudate Type Serosanguineous -Wound Margin Distinct, Outline Attached -Granulation Amt Large (67-100%) -Granulation Quality Pale Red -Slough/Fibrin Yes -Necrosis Amt Small (1-33%) -Necrotic Tissue Type Adherent Slough -Structure Exposed Fascia Muscle Fat Layer Exposed -Texture (Anni-wound Skin Appearance) Scarring -Moisture (Anni-wound Skin Appearance No Abnormality ) -Color (Anni-wound Skin Appearance) No Abnormality -Temperature (Anni-wound Skin No Abnormality Appearance) (Pt Warm) -Tenderness on Palpation (Anni-wound Yes Skin Appearance) -Ulcer Cleansing Rinsed/ Irrigated with Saline -Foul Odor after Cleansing No -Anesthetic Used 4% Lidocaine Solution [Edema Assessment] -Lower Limb Edema Present No WC - Nurse 2 - General Ulcer CM Notes Start: 02/15/18 14:38 Freq: Status: Active Protocol: Activity Type Activity Date Activity User E-Sign Co-Sign Detail Recorded Client Recorded Date Recorded By Document 02/15/18 15:26 [id number] 02/15/18 15:27 02/15/18 15:26 Wound Center Nurse 2 [Procedure/Treatment] #1- LT BREAST POST OP -Time 15:27 -Correct Patient Yes -Correct Side, Site, Position Yes -Correct Procedure Yes -Procedure Performed Yes -Type of Procedure Debridement -Clinical Debridement Subcutaneous -Post Debridement Size (cm) - Length 1.1 -Post Debridement Size (cm) - Width 11.1 -Post Debridement Size (cm) - Depth 2.0 -Total Square Cm 12.21 -Wound/Ulcer Outcome Not Healed -Ulcer Cleansing Rinsed/ Irrigated with Saline -Foul Odor after Cleansing No -Bioengineered Tissue No -Bleeding Controlled with Pressure -Treatment Response Procedure Tolerated Well [See Physician Procedure note for Specifics] Pain Scale: 0-10 Numeric [Pain] -Is Patient Pain Free? Yes Debridement Note Post-Debridement Measurements/Treatment WC - Nurse 2 - General Ulcer CM Notes Start: 02/15/18 14:38 Freq: Status: Active Protocol: Activity Type Activity Date Activity User E-Sign Co-Sign Detail Recorded Client Recorded Date Recorded By Document 02/15/18 15:26 [id number] 02/15/18 15:27 02/15/18 15:26 Wound Center Nurse 2 #1- LT BREAST POST OP -Time 15:27 -Correct Patient Yes -Correct Side, Site, Position Yes -Correct Procedure Yes -Procedure Performed Yes -Type of Procedure Debridement -Clinical Debridement Subcutaneous -Post Debridement Size (cm) - Length 1.1 -Post Debridement Size (cm) - Width 11.1 -Post Debridement Size (cm) - Depth 2.0 -Total Square Cm 12.21 -Wound/Ulcer Outcome Not Healed -Ulcer Cleansing Rinsed/ Irrigated with Saline -Foul Odor after Cleansing No -Bioengineered Tissue No -Bleeding Controlled with Pressure -Treatment Response Procedure Tolerated Well Pain Scale: 0-10 Numeric Is Patient Pain Free? Yes Wound debrided: #1 Left breast. Laterality: Left Wound Grade/Stage: 2. Type of Debridement: Excisional debridement Anesthesia Used: 4% Lidocaine Solution Depth: Down to and including healthy tissue, in the subcutaneous layer Percentage of wound debrided: 100 Instrument Used: 7mm curette Tissue Removed: subcutaneous tissue. Severity: Fat Layer Exposed Amount of bleeding with debridement: Mild Bleeding Controlled with: Pressure Patient tolerated procedure well Assessment/Plan Plan: Continue Silver dressing changes daily. The mastectomy wound continues to improve with no more evidence of fluid buildup medially. Instructed the patient on making sure the packing goes farther medially to minimize further fluid collection that can become infected. She cannot do HBO until 6 months after radiation is finished. She can be re-evaluated in April for HBO. Continue Ceftriaxone daily at night for the Acinetobacter radioresistens and MRSE. Encourage nutritional supplementation with protein to help the healing process. Renewed her Percocet for pain (50 tabs). She is interested in external prosthesis. Will send script to [facility]. Followup 2 weeks.
--- NOTE | 2018-02-15 23:31 | PN.PCM_ITS ---
Type of Wound Date of Service: 02/15/18 Chief Complaint: Open surgical mastectomy wound left breast after surgery . History of Wound: Surgery 01/04/18 - Revision left breast reconstruction with excision painful infected lateral radiation lumpectomy scar contour deformity with completion mastectomy. Wound care - Silver. Operative culture from recent hospitalization for infection - MRSE and Acinetobacter radioresistens. She was discharged on Ceftriaxone until 02/27/18. She is tolerating it better at night. Today she denies fever. Her appetite is average. She finished radiation therapy for her left breast cancer in October. She cannot do HBO treatments until 6 months after the radiation therapy is done which would be in April. Progress of Wound: Slightly improved. - Physical Exam Vital Signs Temp Pulse Resp BP 97.1 F L 110 H 18 136/100 H 02/15/18 14:38 02/15/18 14:38 02/15/18 14:38 02/15/18 14:38 Wound Measurements and Assessment WC - Nurse 1 - General Ulcer Measurement Start: 02/15/18 14:38 Freq: Status: Active Protocol: Activity Type Activity Date Activity User E-Sign Co-Sign Detail Recorded Client Recorded Date Recorded By Document 02/15/18 14:38 [id number] 02/15/18 15:02 TM 02/15/18 14:38 Wound Center Nurse 1 [Ulcer Assessment] #1- LT BREAST POST OP -Combined with other wound No -Current Size (cm) - Length 1.0 -Current Size (cm) - Width 11.0 -Current Size (cm) - Depth 2.0 -Total Square Cm 11.00 -Photo Taken No -Epithelialization Small 1-33% -Tunneling No -Undermining/Tunneling Yes -Undermining/Tunneling Starts (O' 10 clock) -Undermining/Tunneling Ends (O'clock) 12 -Maximum Distance (cm) 3.0 -Undermining/Tunneling Starts #2 (O' 12 clock) -Undermining/Tunneling Ends #2 (O' 2 clock) -Maximum Distance #2 (cm) 2.3 -Circular Undermining No -Classification - Thickness Full Thickness without Exposed Support Structure -Exudate Amt Small (1-33%) -Exudate Type Serosanguineous -Wound Margin Distinct, Outline Attached -Granulation Amt Large (67-100%) -Granulation Quality Pale Red -Slough/Fibrin Yes -Necrosis Amt Small (1-33%) -Necrotic Tissue Type Adherent Slough -Structure Exposed Fascia Muscle Fat Layer Exposed -Texture (Anni-wound Skin Appearance) Scarring -Moisture (Anni-wound Skin Appearance No Abnormality ) -Color (Anni-wound Skin Appearance) No Abnormality -Temperature (Anni-wound Skin No Abnormality Appearance) (Pt Warm) -Tenderness on Palpation (Anni-wound Yes Skin Appearance) -Ulcer Cleansing Rinsed/ Irrigated with Saline -Foul Odor after Cleansing No -Anesthetic Used 4% Lidocaine Solution [Edema Assessment] -Lower Limb Edema Present No WC - Nurse 2 - General Ulcer CM Notes Start: 02/15/18 14:38 Freq: Status: Active Protocol: Activity Type Activity Date Activity User E-Sign Co-Sign Detail Recorded Client Recorded Date Recorded By Document 02/15/18 15:26 [id number] 02/15/18 15:27 02/15/18 15:26 Wound Center Nurse 2 [Procedure/Treatment] #1- LT BREAST POST OP -Time 15:27 -Correct Patient Yes -Correct Side, Site, Position Yes -Correct Procedure Yes -Procedure Performed Yes -Type of Procedure Debridement -Clinical Debridement Subcutaneous -Post Debridement Size (cm) - Length 1.1 -Post Debridement Size (cm) - Width 11.1 -Post Debridement Size (cm) - Depth 2.0 -Total Square Cm 12.21 -Wound/Ulcer Outcome Not Healed -Ulcer Cleansing Rinsed/ Irrigated with Saline -Foul Odor after Cleansing No -Bioengineered Tissue No -Bleeding Controlled with Pressure -Treatment Response Procedure Tolerated Well [See Physician Procedure note for Specifics] Pain Scale: 0-10 Numeric [Pain] -Is Patient Pain Free? Yes Debridement Note Post-Debridement Measurements/Treatment WC - Nurse 2 - General Ulcer CM Notes Start: 02/15/18 14:38 Freq: Status: Active Protocol: Activity Type Activity Date Activity User E-Sign Co-Sign Detail Recorded Client Recorded Date Recorded By Document 02/15/18 15:26 [id number] 02/15/18 15:27 02/15/18 15:26 Wound Center Nurse 2 #1- LT BREAST POST OP -Time 15:27 -Correct Patient Yes -Correct Side, Site, Position Yes -Correct Procedure Yes -Procedure Performed Yes -Type of Procedure Debridement -Clinical Debridement Subcutaneous -Post Debridement Size (cm) - Length 1.1 -Post Debridement Size (cm) - Width 11.1 -Post Debridement Size (cm) - Depth 2.0 -Total Square Cm 12.21 -Wound/Ulcer Outcome Not Healed -Ulcer Cleansing Rinsed/ Irrigated with Saline -Foul Odor after Cleansing No -Bioengineered Tissue No -Bleeding Controlled with Pressure -Treatment Response Procedure Tolerated Well Pain Scale: 0-10 Numeric Is Patient Pain Free? Yes Wound debrided: #1 Left breast. Laterality: Left Wound Grade/Stage: 2. Type of Debridement: Excisional debridement Anesthesia Used: 4% Lidocaine Solution Depth: Down to and including healthy tissue, in the subcutaneous layer Percentage of wound debrided: 100 Instrument Used: 7mm curette Tissue Removed: subcutaneous tissue. Severity: Fat Layer Exposed Amount of bleeding with debridement: Mild Bleeding Controlled with: Pressure Patient tolerated procedure well Assessment/Plan Plan: Continue Silver dressing changes daily. The mastectomy wound continues to improve with no more evidence of fluid buildup medially. Instructed the patient on making sure the packing goes farther medially to minimize further fluid collection that can become infected. She cannot do HBO until 6 months after radiation is finished. She can be re-evaluated in April for HBO. Continue Ceftriaxone daily at night for the Acinetobacter radioresistens and MRSE. Encourage nutritional supplementation with protein to help the healing process. Renewed her Percocet for pain (50 tabs). She is interested in external prosthesis. Will send script to [facility]. Followup 2 weeks.
[2018-02-28 11:57] VITALS: BP 141/88; PULSE 110; RESP 18; TEMP 36.6
--- NOTE | 2018-02-28 23:51 | PCM.WC.PN ---
Type of Wound Date of Service: 02/28/18 Chief Complaint: Open surgical mastectomy wound left breast after surgery 01/04/18. History of Wound: Surgery 01/04/18 - Revision left breast reconstruction with excision painful infected lateral radiation lumpectomy scar contour deformity with completion mastectomy. Wound care - Silver. Operative culture from recent hospitalization for infection - MRSE and Acinetobacter radioresistens. She was discharged on Ceftriaxone until today. She is tolerating it better at night. Today she denies fever. Her appetite is average. She finished radiation therapy for her left breast cancer in October. She cannot do HBO treatments until 6 months after the radiation therapy is done which would be in April. Progress of Wound: Slightly improved. - Physical Exam Vital Signs Temp Pulse Resp BP 98 F 110 H 18 141/88 H 02/28/18 11:57 02/28/18 11:57 02/28/18 11:57 02/28/18 11:57 Wound Measurements and Assessment WC - Nurse 1 - General Ulcer Measurement Start: 02/15/18 14:38 Freq: Status: Active Protocol: Activity Type Activity Date Activity User E-Sign Co-Sign Detail Recorded Client Recorded Date Recorded By Document 02/28/18 11:57 [facility] [id number] 02/28/18 12:14 [facility] 02/28/18 11:57 Wound Center Nurse 1 [Ulcer Assessment] #1- LT BREAST POST OP -Combined with other wound No -Current Size (cm) - Length 0.6 -Current Size (cm) - Width 9.9 -Current Size (cm) - Depth 1.9 -Total Square Cm 5.94 -Date of Last Picture (Recall this 02/28/18 field) -Photo Taken Yes -Epithelialization None Present -Tunneling No -Undermining/Tunneling Yes -Undermining/Tunneling Starts (O' 9 clock) -Undermining/Tunneling Ends (O'clock) 12 -Maximum Distance (cm) 1.6 -Circular Undermining No -Exudate Amt Medium (34-66%) -Exudate Type Serous -Wound Margin Distinct, Outline Attached -Granulation Amt Large (67-100%) -Granulation Quality Mesic -Slough/Fibrin Yes -Necrosis Amt Small (1-33%) -Necrotic Tissue Type Adherent Slough -Texture (Anni-wound Skin Appearance) Scarring -Moisture (Anni-wound Skin Appearance Assessed ) -Color (Anni-wound Skin Appearance) Assessed -Temperature (Anni-wound Skin No Abnormality Appearance) (Pt Warm) -Tenderness on Palpation (Anni-wound No Skin Appearance) -Ulcer Cleansing Rinsed/ Irrigated with Saline -Foul Odor after Cleansing No -Anesthetic Used 4% Lidocaine Solution - Nurse 2 - General Ulcer CM Notes Start: 02/15/18 14:38 Freq: Status: Active Protocol: Activity Type Activity Date Activity User E-Sign Co-Sign Detail Recorded Client Recorded Date Recorded By Document 02/28/18 13:03 [id number] 02/28/18 13:04 02/28/18 13:03 Wound Center Nurse 2 [Procedure/Treatment] -Time 13:03 -Correct Patient Yes -Correct Side, Site, Position Yes -Correct Procedure Yes -Procedure Performed Yes -Type of Procedure Debridement -Clinical Debridement Subcutaneous -Post Debridement Size (cm) - Length 0.6 -Post Debridement Size (cm) - Width 10 -Post Debridement Size (cm) - Depth 1.5 -Total Square Cm 6.0 -Wound/Ulcer Outcome Not Healed -Ulcer Cleansing Rinsed/ Irrigated with Saline -Foul Odor after Cleansing No -Bioengineered Tissue No -Bleeding Controlled with Pressure -Treatment Response Procedure Tolerated Well [See Physician Procedure note for Specifics] Pain Scale: 0-10 Numeric [Pain] -Is Patient Pain Free? Yes Debridement Note Post-Debridement Measurements/Treatment - Nurse 2 - General Ulcer CM Notes Start: 02/15/18 14:38 Freq: Status: Active Protocol: Activity Type Activity Date Activity User E-Sign Co-Sign Detail Recorded Client Recorded Date Recorded By Document 02/15/18 15:26 [id number] 02/15/18 15:27 Document 02/28/18 13:03 [id number] 02/28/18 13:04 02/15/18 02/28/18 15:26 13:03 Wound Center Nurse 2 #1- LT BREAST POST OP -Time 15:27 13:03 -Correct Patient Yes Yes -Correct Side, Site, Position Yes Yes -Correct Procedure Yes Yes -Procedure Performed Yes Yes -Type of Procedure Debridement Debridement -Clinical Debridement Subcutaneous Subcutaneous -Post Debridement Size (cm) - Length 1.1 0.6 -Post Debridement Size (cm) - Width 11.1 10 -Post Debridement Size (cm) - Depth 2.0 1.5 -Total Square Cm 12.21 6.0 -Wound/Ulcer Outcome Not Healed Not Healed -Ulcer Cleansing Rinsed/ Rinsed/ Irrigated with Irrigated with Saline Saline -Foul Odor after Cleansing No No -Bioengineered Tissue No No -Bleeding Controlled with Pressure Pressure -Treatment Response Procedure Procedure Tolerated Well Tolerated Well Pain Scale: 0-10 Numeric Is Patient Pain Free? Yes Yes Wound debrided: #1 Left breast. Laterality: Left Wound Grade/Stage: 2. Type of Debridement: Excisional debridement Anesthesia Used: 4% Lidocaine Solution Depth: Down to and including healthy tissue, in the subcutaneous layer Percentage of wound debrided: 100 Instrument Used: 7mm curette Tissue Removed: subcutaneous tissue. Severity: Fat Layer Exposed Amount of bleeding with debridement: Mild Bleeding Controlled with: Pressure Patient tolerated procedure well Assessment/Plan Assessment: 1. Left breast cancer. 2. s/p lumpectomy with chemotherapy and radiation therapy. 3. Post-lumpectomy painful indentation scar contour deformity left lateral breast. 4. Late effect radiation left breast. 5. Disproportion reconstructed left breast. 6. Post-lumpectomy infected seroma left lateral breast. 7. s/p revision left breast reconstruction with excision painful infected lateral radiation lumpectomy scar contour deformity with completion mastectomy. Plan: Continue Silver dressing changes daily. The mastectomy wound continues to improve with no more evidence of fluid buildup medially. Instructed the patient on making sure the packing goes farther medially to minimize further fluid collection that can become infected. She cannot do HBO until 6 months after radiation is finished. She can be re-evaluated in April for HBO. She was treated with Ceftriaxone daily at night for the Acinetobacter radioresistens and MRSE. Today was the last day for her antibiotics. Encourage nutritional supplementation with protein to help the healing process. Renewed her Neurontin just once a day at 300mg (30 tabs) and 2 refills. She is interested in external prosthesis. Will send script to [facility]. Followup 2 weeks. If we start HBO in April, we can tentatively schedule wound closure with a latissimus dorsi flap in May. After healing has occurred, can proceed with reconstruction with cohesive gel implants in September. Patient voices understanding for the surgical game plan. In between the surgeries, she can get additional HBO treatments.
[2018-03-15 15:48] VITALS: BP 148/107; PULSE 97; RESP 18; TEMP 36.5
--- NOTE | 2018-03-15 20:32 | PCM.WC.PN ---
Type of Wound Date of Service: 03/15/18 Chief Complaint: Open surgical mastectomy wound left breast after surgery 01/04/18. History of Wound: Surgery 01/04/18 - Revision left breast reconstruction with excision painful infected lateral radiation lumpectomy scar contour deformity with completion mastectomy. Wound care - Silver. Operative culture from recent hospitalization for infection - MRSE and Acinetobacter radioresistens. She was discharged on Ceftriaxone and has finished them. Today she denies fever. Her appetite is average. She finished radiation therapy for her left breast cancer in October. She cannot do HBO treatments until 6 months after the radiation therapy is done which would be in April. She is thinking about breast reconstruction in May with a latissimus flap. Progress of Wound: Slightly improved. - Physical Exam Vital Signs Temp Pulse Resp BP 97.7 F L 97 18 148/107 H 03/15/18 15:48 03/15/18 15:48 03/15/18 15:48 03/15/18 15:48 Wound Measurements and Assessment WC - Nurse 1 - General Ulcer Measurement Start: 02/15/18 14:38 Freq: Status: Active Protocol: Activity Type Activity Date Activity User E-Sign Co-Sign Detail Recorded Client Recorded Date Recorded By Document 03/15/18 15:48 DL [id number] 03/15/18 15:57 DL 03/15/18 15:48 Wound Center Nurse 1 [Ulcer Assessment] #1- LT BREAST POST OP -Current Size (cm) - Length 7 -Current Size (cm) - Width 0.8 -Current Size (cm) - Depth 0.5 -Total Square Cm 5.6 -Photo Taken No -Exudate Amt Small (1-33%) -Exudate Type Serosanguineous -Wound Margin Thickened & Rolled Under -Granulation Amt Large (67-100%) -Granulation Quality Red -Necrosis Amt None Present (0 %) -Structure Exposed N/A -Texture (Anni-wound Skin Appearance) Scarring -Moisture (Anni-wound Skin Appearance No Abnormality ) -Color (Anni-wound Skin Appearance) No Abnormality -Temperature (Anni-wound Skin No Abnormality Appearance) (Pt Warm) -Tenderness on Palpation (Anni-wound No Skin Appearance) -Ulcer Cleansing Wound Cleanser -Foul Odor after Cleansing No -Anesthetic Used 4% Lidocaine Solution WC - Nurse 2 - General Ulcer CM Notes Start: 02/15/18 14:38 Freq: Status: Active Protocol: Activity Type Activity Date Activity User E-Sign Co-Sign Detail Recorded Client Recorded Date Recorded By Document 03/15/18 16:26 [id number] 03/15/18 16:30 03/15/18 16:26 Wound Center Nurse 2 [Procedure/Treatment] -Time 16:27 -Correct Patient Yes -Correct Side, Site, Position Yes -Correct Procedure Yes -Procedure Performed Yes -Type of Procedure Debridement -Clinical Debridement Subcutaneous -Post Debridement Size (cm) - Length 7 -Post Debridement Size (cm) - Width 0.9 -Post Debridement Size (cm) - Depth 1.3 -Total Square Cm 6.3 -Wound/Ulcer Outcome Not Healed -Ulcer Cleansing Rinsed/ Irrigated with Saline -Foul Odor after Cleansing No -Bioengineered Tissue No -Bleeding Controlled with Pressure -Treatment Response Procedure Tolerated Well [See Physician Procedure note for Specifics] Pain Scale: 0-10 Numeric [Pain] -Is Patient Pain Free? Yes Debridement Note Post-Debridement Measurements/Treatment WC - Nurse 2 - General Ulcer CM Notes Start: 02/15/18 14:38 Freq: Status: Active Protocol: Activity Type Activity Date Activity User E-Sign Co-Sign Detail Recorded Client Recorded Date Recorded By Document 02/15/18 15:26 [id number] 02/15/18 15:27 Document 02/28/18 13:03 [id number] 02/28/18 13:04 Document 03/15/18 16:26 [id number] 03/15/18 16:30 02/15/18 02/28/18 03/15/18 15:26 13:03 16:26 Wound Center Nurse 2 #1- LT BREAST POST OP -Time 15:27 13:03 16:27 -Correct Patient Yes Yes Yes -Correct Side, Site, Position Yes Yes Yes -Correct Procedure Yes Yes Yes -Procedure Performed Yes Yes Yes -Type of Procedure Debridement Debridement Debridement -Clinical Debridement Subcutaneous Subcutaneous Subcutaneous -Post Debridement Size (cm) - Length 1.1 0.6 7 -Post Debridement Size (cm) - Width 11.1 10 0.9 -Post Debridement Size (cm) - Depth 2.0 1.5 1.3 -Total Square Cm 12.21 6.0 6.3 -Wound/Ulcer Outcome Not Healed Not Healed Not Healed -Ulcer Cleansing Rinsed/ Rinsed/ Rinsed/ Irrigated with Irrigated with Irrigated with Saline Saline Saline -Foul Odor after Cleansing No No No -Bioengineered Tissue No No No -Bleeding Controlled with Pressure Pressure Pressure -Treatment Response Procedure Procedure Procedure Tolerated Well Tolerated Well Tolerated Well Pain Scale: 0-10 Numeric Is Patient Pain Free? Yes Yes Yes Wound debrided: #1 Left breast. Laterality: Left Wound Grade/Stage: 2. Type of Debridement: Excisional debridement Anesthesia Used: 4% Lidocaine Solution Depth: Down to and including healthy tissue, in the subcutaneous layer Percentage of wound debrided: 100 Instrument Used: 5mm curette Tissue Removed: subcutaneous tissue. Severity: Fat Layer Exposed Amount of bleeding with debridement: Mild Bleeding Controlled with: Pressure Patient tolerated procedure well Assessment/Plan Assessment: 1. Left breast cancer. 2. s/p lumpectomy with chemotherapy and radiation therapy. 3. Post-lumpectomy painful indentation scar contour deformity left lateral breast. 4. Late effect radiation left breast. 5. Disproportion reconstructed left breast. 6. Post-lumpectomy infected seroma left lateral breast. 7. s/p revision left breast reconstruction with excision painful infected lateral radiation lumpectomy scar contour deformity with completion mastectomy. Plan: Continue Silver dressing changes daily. The mastectomy wound continues to improve with no more evidence of fluid buildup medially. Instructed the patient on making sure the packing goes farther medially to minimize further fluid collection that can become infected. She cannot do HBO until 6 months after radiation is finished. She can be re-evaluated in April for HBO. She was treated with Ceftriaxone for the Acinetobacter radioresistens and MRSE and has finished them. Encourage nutritional supplementation with protein to help the healing process. Renewed her Percocet for pain (30 tabs). Followup 2 weeks. If we start HBO in April, we can tentatively schedule wound closure with a latissimus dorsi flap in May. After healing has occurred, can proceed with reconstruction with cohesive gel implants in September. Patient voices understanding for the surgical game plan. In between the surgeries, she can get additional HBO treatments.
== END 2018-03-17 23:59 ==
LOC: WC 15:30
PROVIDERS: Family Provider Family Medicine; PCP Family Medicine; Visit Provider Surgery
DX: C50.912 Malignant neoplasm of unspecified site of left female breast (principal); L59.8 Other specified disorders of the skin and subcutaneous tissue related to radiation; N65.1 Disproportion of reconstructed breast; T81.4XXA Infection following a procedure, initial encounter; Y83.8 Other surgical procedures as the cause of abnormal reaction of the patient, or of later complication, without mention of misadventure at the time of the procedure; L90.5 Scar conditions and fibrosis of skin; Z92.21 Personal history of antineoplastic chemotherapy; Z92.3 Personal history of irradiation
CPT/HCPCS: 11042

== ENCOUNTER → 2018-03-29 13:50 | Outpatient (CLI) | payer BC, OTHER, SELFPAY ==
[2017-09-29 13:07] VITALS: BMI 36.4
--- NOTE | 2018-03-29 13:53 | ECHOD_ITS ---
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 The study was technically difficult. Due to open wound lower left breast area, extremely painful to touch. Exam performed in department. Left Ventricle Based upon the 2D echocardiographic and contrast enhanced images obtained there appears to be grossly normal left ventricular size, wall motion, and systolic function. The estimated ejection fraction is 55 %. Transmitral doppler flow suggestive of impaired relaxation of left ventricle. Right Ventricle Normal RV size. Normal systolic function. Atria Normal left atrium. Normal right atrium. No doppler evidence for ASD. Mitral Valve There is no mitral annular calcification. Normal mitral valve. Trivial mitral valve insufficiency. Tricuspid Valve Normal tricuspid valve. Trivial tricuspid valve insufficiency. Unable to estimate RV systolic pressure/pulmonary artery pressure due to technically difficult study. Aortic Valve The aortic valve is not well visualized. Pulmonic Valve The pulmonic valve is not well visualized. Trivial pulmonic valve insufficiency. Great Vessels Normal sized aortic root. Pericardium/Pleural No pericardial effusion. MMode/2D Measurements & Calculations LVIDd: 4.1 cm IVSd: 0.99 cm Ao root diam: 2.8 cm LVIDs: 2.6 cm LVPWd: 0.95 cm LA dimension: 3.2 cm FS: 36.5 % LAV(MOD-bp): 37.9 ml EDV(MOD-sp4): 60.9 ml EDV(MOD-sp2): 32.7 ml LAV(MOD-bp) Indexed: 18.2 ml/m2 ESV(MOD-sp4): 27.7 ml EF(MOD-sp2): 60.2 % LAV(MOD-sp2): 33.9 ml EF(MOD-sp4): 54.5 % LAV(MOD-sp4): 32.3 ml SV(MOD-sp4): 33.2 ml SV(MOD-sp2): 19.7 ml LA A4 area: 14.3 cm2 RA A4 area: 14.1 cm2 Doppler Measurements & Calculations MV E max nash: 54.4 cm/sec PA V2 max: 92.5 cm/sec MV A max nash: 70.7 cm/sec MV E/A: 0.77 Interpretation Summary The study was technically difficult. Based upon the 2D echocardiographic and contrast enhanced images obtained there appears to be grossly normal left ventricular size, wall motion, and systolic function. The estimated ejection fraction is 55 %. Trivial mitral valve insufficiency. Trivial tricuspid valve insufficiency. Trivial pulmonic valve insufficiency. Unable to estimate RV systolic pressure/pulmonary artery pressure due to technically difficult study. Transmitral doppler flow suggestive of impaired relaxation of left ventricle Ordering Physician: Owen Edouard Referring Physician: Owen Edouard Performed By: Eun Garcia RDCS, RVT
== END ==
PROVIDERS: Family Provider Family Medicine; PCP Family Medicine; Visit Provider Internal Medicine Hematology & Oncology
DX: C50.912 Malignant neoplasm of unspecified site of left female breast (principal); D64.9 Anemia, unspecified; Z79.899 Other long term (current) drug therapy
CPT/HCPCS: 93306

== ENCOUNTER 2018-04-04 08:32 | Outpatient (RCR) | payer BC, OTHER, SELFPAY ==
[2017-09-29 13:07] VITALS: BMI 36.4
[2018-03-18 00:52] VITALS: BP 148/107; PULSE 97; RESP 18; TEMP 36.5
[2018-04-04 11:15] VITALS: BP 126/76; PULSE 111; RESP 18; TEMP 37
--- NOTE | 2018-04-04 20:38 | PCM.WC.PN ---
Type of Wound Date of Service: 04/04/18 Chief Complaint: Open surgical mastectomy wound left breast after surgery 01/04/18. History of Wound: Surgery 01/04/18 - Revision left breast reconstruction with excision painful infected lateral radiation lumpectomy scar contour deformity with completion mastectomy. Wound care - Silver. Operative culture from recent hospitalization for infection - MRSE and Acinetobacter radioresistens. She was discharged on Ceftriaxone and has finished them. Today she denies fever. Her appetite is average. She finished radiation therapy for her left breast cancer in October. She cannot do HBO treatments until 6 months after the radiation therapy is done which would be in April. She was thinking about breast reconstruction in May with a latissimus flap but has decided to hold off on any further surgery at this time. Progress of Wound: Slightly improved. - Physical Exam Vital Signs Temp Pulse Resp BP 98.6 F 111 H 18 126/76 H 04/04/18 11:15 04/04/18 11:15 04/04/18 11:15 04/04/18 11:15 Wound Measurements and Assessment WC - Nurse 1 - General Ulcer Measurement Start: 04/04/18 11:11 Freq: Status: Active Protocol: Activity Type Activity Date Activity User E-Sign Co-Sign Detail Recorded Client Recorded Date Recorded By Document 04/04/18 11:15 DL [id number] 04/04/18 11:24 DL 04/04/18 11:15 Wound Center Nurse 1 [Ulcer Assessment] #1- LT BREAST POST OP -Current Size (cm) - Length 0.4 -Current Size (cm) - Width 8.7 -Current Size (cm) - Depth 1 -Total Square Cm 3.48 -Photo Taken Yes -Epithelialization Medium 34-66% -Exudate Amt Small (1-33%) -Exudate Type Serosanguineous -Wound Margin Thickened & Rolled Under -Granulation Amt Large (67-100%) -Granulation Quality [place] Red -Necrosis Amt None Present (0 %) -Structure Exposed N/A -Texture (Anni-wound Skin Appearance) Scarring -Moisture (Anni-wound Skin Appearance No Abnormality ) -Color (Anni-wound Skin Appearance) No Abnormality -Temperature (Anni-wound Skin No Abnormality Appearance) (Pt Warm) -Tenderness on Palpation (Anni-wound Yes Skin Appearance) -Ulcer Cleansing Wound Cleanser -Foul Odor after Cleansing No -Anesthetic Used 4% Lidocaine Solution - Nurse 2 - General Ulcer CM Notes Start: 04/04/18 11:11 Freq: Status: Active Protocol: Activity Type Activity Date Activity User E-Sign Co-Sign Detail Recorded Client Recorded Date Recorded By Document 04/04/18 11:47 [id number] 04/04/18 11:57 04/04/18 11:47 Wound Center Nurse 2 [Procedure/Treatment] -Time 11:48 -Correct Patient Yes -Correct Side, Site, Position Yes -Correct Procedure Yes -Procedure Performed Yes -Type of Procedure Debridement -Clinical Debridement Subcutaneous -Post Debridement Size (cm) - Length 0.5 -Post Debridement Size (cm) - Width 8.7 -Post Debridement Size (cm) - Depth 1.0 -Total Square Cm 4.35 -Wound/Ulcer Outcome Not Healed -Ulcer Cleansing Rinsed/ Irrigated with Saline -Foul Odor after Cleansing No -Bioengineered Tissue No -Bleeding Controlled with Pressure -Treatment Response Procedure Tolerated Well [See Physician Procedure note for Specifics] Pain Scale: 0-10 Numeric [Pain] -Is Patient Pain Free? Yes Debridement Note Post-Debridement Measurements/Treatment - Nurse 2 - General Ulcer CM Notes Start: 04/04/18 11:11 Freq: Status: Active Protocol: Activity Type Activity Date Activity User E-Sign Co-Sign Detail Recorded Client Recorded Date Recorded By Document 04/04/18 11:47 [id number] 04/04/18 11:57 04/04/18 11:47 Wound Center Nurse 2 #1- LT BREAST POST OP -Time 11:48 -Correct Patient Yes -Correct Side, Site, Position Yes -Correct Procedure Yes -Procedure Performed Yes -Type of Procedure Debridement -Clinical Debridement Subcutaneous -Post Debridement Size (cm) - Length 0.5 -Post Debridement Size (cm) - Width 8.7 -Post Debridement Size (cm) - Depth 1.0 -Total Square Cm 4.35 -Wound/Ulcer Outcome Not Healed -Ulcer Cleansing Rinsed/ Irrigated with Saline -Foul Odor after Cleansing No -Bioengineered Tissue No -Bleeding Controlled with Pressure -Treatment Response Procedure Tolerated Well Pain Scale: 0-10 Numeric Is Patient Pain Free? Yes Wound debrided: #1 Left breast. Laterality: Left Wound Grade/Stage: 2. Type of Debridement: Excisional debridement Anesthesia Used: 4% Lidocaine Solution Depth: Down to and including healthy tissue, in the subcutaneous layer Percentage of wound debrided: 100 Instrument Used: 5mm curette Tissue Removed: subcutaneous tissue. Severity: Fat Layer Exposed Amount of bleeding with debridement: Mild Bleeding Controlled with: Pressure Patient tolerated procedure well Assessment/Plan Assessment: 1. Left breast cancer. 2. s/p lumpectomy with chemotherapy and radiation therapy. 3. Post-lumpectomy painful indentation scar contour deformity left lateral breast. 4. Late effect radiation left breast. 5. Disproportion reconstructed left breast. 6. Post-lumpectomy infected seroma left lateral breast. 7. s/p revision left breast reconstruction with excision painful infected lateral radiation lumpectomy scar contour deformity with completion mastectomy. Plan: Continue Silver dressing changes daily. The mastectomy wound continues to improve with no more evidence of fluid buildup medially. Instructed the patient on making sure the packing goes farther medially to minimize further fluid collection that can become infected. She cannot do HBO until 6 months after radiation is finished. She can be re-evaluated in April for HBO. She was treated with Ceftriaxone for the Acinetobacter radioresistens and MRSE and has finished them. Encourage nutritional supplementation with protein to help the healing process. Followup 2 weeks. If we start HBO in April, we were going to tentatively schedule wound closure with a latissimus dorsi flap in May. After healing has occurred, can proceed with reconstruction with cohesive gel implants in September. However the patient has decided to hold off on any further surgery at this time. So will just proceed with the HBO treatments at this time at the end of April.
--- NOTE | 2018-04-06 00:39 | PN.PCM_ITS ---
Type of Wound Date of Service: 04/04/18 Chief Complaint: Open surgical mastectomy wound left breast after surgery . History of Wound: Surgery 01/04/18 - Revision left breast reconstruction with excision painful infected lateral radiation lumpectomy scar contour deformity with completion mastectomy. Wound care - Silver. Operative culture from recent hospitalization for infection - MRSE and Acinetobacter radioresistens. She was discharged on Ceftriaxone and has finished them. Today she denies fever. Her appetite is average. She finished radiation therapy for her left breast cancer in October. She cannot do HBO treatments until 6 months after the radiation therapy is done which would be in April. She was thinking about breast reconstruction in May with a latissimus flap but has decided to hold off on any further surgery at this time. Progress of Wound: Slightly improved. - Physical Exam Vital Signs Temp Pulse Resp BP 98.6 F 111 H 18 126/76 H 04/04/18 11:15 04/04/18 11:15 04/04/18 11:15 04/04/18 11:15 Wound Measurements and Assessment WC - Nurse 1 - General Ulcer Measurement Start: 04/04/18 11:11 Freq: Status: Active Protocol: Activity Type Activity Date Activity User E-Sign Co-Sign Detail Recorded Client Recorded Date Recorded By Document 04/04/18 11:15 DL [id number] 04/04/18 11:24 DL 04/04/18 11:15 Wound Center Nurse 1 [Ulcer Assessment] #1- LT BREAST POST OP -Current Size (cm) - Length 0.4 -Current Size (cm) - Width 8.7 -Current Size (cm) - Depth 1 -Total Square Cm 3.48 -Photo Taken Yes -Epithelialization Medium 34-66% -Exudate Amt Small (1-33%) -Exudate Type Serosanguineous -Wound Margin Thickened & Rolled Under -Granulation Amt Large (67-100%) -Granulation Quality [place] Red -Necrosis Amt None Present (0 %) -Structure Exposed N/A -Texture (Anni-wound Skin Appearance) Scarring -Moisture (Anni-wound Skin Appearance No Abnormality ) -Color (Anni-wound Skin Appearance) No Abnormality -Temperature (Anni-wound Skin No Abnormality Appearance) (Pt Warm) -Tenderness on Palpation (Anni-wound Yes Skin Appearance) -Ulcer Cleansing Wound Cleanser -Foul Odor after Cleansing No -Anesthetic Used 4% Lidocaine Solution - Nurse 2 - General Ulcer CM Notes Start: 04/04/18 11:11 Freq: Status: Active Protocol: Activity Type Activity Date Activity User E-Sign Co-Sign Detail Recorded Client Recorded Date Recorded By Document 04/04/18 11:47 [id number] 04/04/18 11:57 04/04/18 11:47 Wound Center Nurse 2 [Procedure/Treatment] -Time 11:48 -Correct Patient Yes -Correct Side, Site, Position Yes -Correct Procedure Yes -Procedure Performed Yes -Type of Procedure Debridement -Clinical Debridement Subcutaneous -Post Debridement Size (cm) - Length 0.5 -Post Debridement Size (cm) - Width 8.7 -Post Debridement Size (cm) - Depth 1.0 -Total Square Cm 4.35 -Wound/Ulcer Outcome Not Healed -Ulcer Cleansing Rinsed/ Irrigated with Saline -Foul Odor after Cleansing No -Bioengineered Tissue No -Bleeding Controlled with Pressure -Treatment Response Procedure Tolerated Well [See Physician Procedure note for Specifics] Pain Scale: 0-10 Numeric [Pain] -Is Patient Pain Free? Yes Debridement Note Post-Debridement Measurements/Treatment - Nurse 2 - General Ulcer CM Notes Start: 04/04/18 11:11 Freq: Status: Active Protocol: Activity Type Activity Date Activity User E-Sign Co-Sign Detail Recorded Client Recorded Date Recorded By Document 04/04/18 11:47 [id number] 04/04/18 11:57 04/04/18 11:47 Wound Center Nurse 2 #1- LT BREAST POST OP -Time 11:48 -Correct Patient Yes -Correct Side, Site, Position Yes -Correct Procedure Yes -Procedure Performed Yes -Type of Procedure Debridement -Clinical Debridement Subcutaneous -Post Debridement Size (cm) - Length 0.5 -Post Debridement Size (cm) - Width 8.7 -Post Debridement Size (cm) - Depth 1.0 -Total Square Cm 4.35 -Wound/Ulcer Outcome Not Healed -Ulcer Cleansing Rinsed/ Irrigated with Saline -Foul Odor after Cleansing No -Bioengineered Tissue No -Bleeding Controlled with Pressure -Treatment Response Procedure Tolerated Well Pain Scale: 0-10 Numeric Is Patient Pain Free? Yes Wound debrided: #1 Left breast. Laterality: Left Wound Grade/Stage: 2. Type of Debridement: Excisional debridement Anesthesia Used: 4% Lidocaine Solution Depth: Down to and including healthy tissue, in the subcutaneous layer Percentage of wound debrided: 100 Instrument Used: 5mm curette Tissue Removed: subcutaneous tissue. Severity: Fat Layer Exposed Amount of bleeding with debridement: Mild Bleeding Controlled with: Pressure Patient tolerated procedure well Assessment/Plan Assessment: 1. Left breast cancer. 2. s/p lumpectomy with chemotherapy and radiation therapy. 3. Post-lumpectomy painful indentation scar contour deformity left lateral breast. 4. Late effect radiation left breast. 5. Disproportion reconstructed left breast. 6. Post-lumpectomy infected seroma left lateral breast. 7. s/p revision left breast reconstruction with excision painful infected lateral radiation lumpectomy scar contour deformity with completion mastectomy. Plan: Continue Silver dressing changes daily. The mastectomy wound continues to improve with no more evidence of fluid buildup medially. Instructed the patient on making sure the packing goes farther medially to minimize further fluid collection that can become infected. She cannot do HBO until 6 months after radiation is finished. She can be re-evaluated in April for HBO. She was treated with Ceftriaxone for the Acinetobacter radioresistens and MRSE and has finished them. Encourage nutritional supplementation with protein to help the healing process. Followup 2 weeks. If we start HBO in April, we were going to tentatively schedule wound closure with a latissimus dorsi flap in May. After healing has occurred, can proceed with reconstruction with cohesive gel implants in September. However the patient has decided to hold off on any further surgery at this time. So will just proceed with the HBO treatments at this time at the end of April.
== END 2018-04-16 23:59 ==
LOC: WC 08:32
PROVIDERS: Family Provider Family Medicine; PCP Family Medicine; Visit Provider Surgery
DX: L59.8 Other specified disorders of the skin and subcutaneous tissue related to radiation (principal); C50.912 Malignant neoplasm of unspecified site of left female breast; N64.89 Other specified disorders of breast; T81.4XXA Infection following a procedure, initial encounter; N61.0 Mastitis without abscess
CPT/HCPCS: 11042

== ENCOUNTER 2018-04-11 14:05 | Outpatient (RCR) | payer BC, OTHER, SELFPAY ==
[2017-09-29 13:07] VITALS: BMI 36.4
== END 2018-04-16 23:59 ==
LOC: NS 14:05
PROVIDERS: Family Provider Family Medicine; PCP Family Medicine; Visit Provider Surgery
DX: E66.9 Obesity, unspecified (principal); Z68.32 Body mass index [BMI] 32.0-32.9, adult; Z85.3 Personal history of malignant neoplasm of breast; Z71.3 Dietary counseling and surveillance
CPT/HCPCS: 97802

== ENCOUNTER 2018-05-02 09:00 | Outpatient (RCR) | payer BC, OTHER, SELFPAY ==
[2017-09-29 13:07] VITALS: BMI 36.4
[2018-04-17 00:45] VITALS: BP 126/76; PULSE 111; RESP 18; TEMP 37
[2018-04-18 08:33] VITALS: BP 141/95; PULSE 87; RESP 16; TEMP 36.9
--- NOTE | 2018-04-18 23:44 | PCM.WC.PN ---
Type of Wound Date of Service: 04/18/18 Chief Complaint: Open surgical mastectomy wound left breast after surgery 01/04/18. History of Wound: Surgery 01/04/18 - Revision left breast reconstruction with excision painful infected lateral radiation lumpectomy scar contour deformity with completion mastectomy. Wound care - Silver. Operative culture from recent hospitalization for infection - MRSE and Acinetobacter radioresistens. She was discharged on Ceftriaxone and has finished them. Today she denies fever. Her appetite is average. She finished radiation therapy for her left breast cancer in October. She cannot do HBO treatments until 6 months after the radiation therapy is done which would be in April. She was thinking about breast reconstruction in May with a latissimus flap but has decided to hold off on any further surgery at this time. Progress of Wound: Slightly improved. - Physical Exam Vital Signs Temp Pulse Resp BP 98.4 F 87 16 141/95 H 04/18/18 08:33 04/18/18 08:33 04/18/18 08:33 04/18/18 08:33 HEENT: TM's Clear - No bleeding noted. Wound Measurements and Assessment WC - Nurse 1 - General Ulcer Measurement Start: 04/18/18 08:33 Freq: Status: Active Protocol: Activity Type Activity Date Activity User E-Sign Co-Sign Detail Recorded Client Recorded Date Recorded By Document 04/18/18 08:33 [id number] 04/18/18 08:37 04/18/18 08:33 Wound Center Nurse 1 [Ulcer Assessment] #1- LT BREAST POST OP -Combined with other wound No -Current Size (cm) - Length 0.7 -Current Size (cm) - Width 7.0 -Current Size (cm) - Depth 1.5 -Total Square Cm 4.90 -Photo Taken No -Epithelialization Medium 34-66% -Tunneling No -Undermining/Tunneling No -Circular Undermining No -Classification - Thickness Full Thickness without Exposed Support Structure -Exudate Amt Small (1-33%) -Exudate Type Serosanguineous -Wound Margin Distinct, Outline Attached -Granulation Amt Large (67-100%) -Granulation Quality Red -Slough/Fibrin Yes -Necrosis Amt Small (1-33%) -Necrotic Tissue Type Adherent Slough -Structure Exposed Fascia Fat Layer Exposed -Texture (Anni-wound Skin Appearance) Scarring -Moisture (Anni-wound Skin Appearance No Abnormality ) -Color (Anni-wound Skin Appearance) Assessed -Temperature (Anni-wound Skin No Abnormality Appearance) (Pt Warm) -Tenderness on Palpation (Anni-wound No Skin Appearance) -Ulcer Cleansing Rinsed/ Irrigated with Saline -Foul Odor after Cleansing No -Anesthetic Used 4% Lidocaine Solution [Edema Assessment] -Lower Limb Edema Present No WC - Nurse 2 - General Ulcer CM Notes Start: 04/18/18 08:33 Freq: Status: Active Protocol: Activity Type Activity Date Activity User E-Sign Co-Sign Detail Recorded Client Recorded Date Recorded By Document 04/18/18 09:00 [id number] 04/18/18 09:01 04/18/18 09:00 Wound Center Nurse 2 [Procedure/Treatment] #1- LT BREAST POST OP -Time 09:00 -Correct Patient Yes -Correct Side, Site, Position Yes -Correct Procedure Yes -Procedure Performed Yes -Type of Procedure Debridement -Clinical Debridement Subcutaneous -Post Debridement Size (cm) - Length 0.8 -Post Debridement Size (cm) - Width 7 -Post Debridement Size (cm) - Depth 1.1 -Total Square Cm 5.6 -Wound/Ulcer Outcome Not Healed -Ulcer Cleansing Rinsed/ Irrigated with Saline -Foul Odor after Cleansing No -Bioengineered Tissue No -Bleeding Controlled with Pressure -Treatment Response Procedure Tolerated Well [See Physician Procedure note for Specifics] Pain Scale: 0-10 Numeric [Pain] -Is Patient Pain Free? Yes Debridement Note Post-Debridement Measurements/Treatment DENIA - Nurse 2 - General Ulcer CM Notes Start: 04/18/18 08:33 Freq: Status: Active Protocol: Activity Type Activity Date Activity User E-Sign Co-Sign Detail Recorded Client Recorded Date Recorded By Document 04/18/18 09:00 [id number] 04/18/18 09:01 04/18/18 09:00 Wound Center Nurse 2 #1- LT BREAST POST OP -Time 09:00 -Correct Patient Yes -Correct Side, Site, Position Yes -Correct Procedure Yes -Procedure Performed Yes -Type of Procedure Debridement -Clinical Debridement Subcutaneous -Post Debridement Size (cm) - Length 0.8 -Post Debridement Size (cm) - Width 7 -Post Debridement Size (cm) - Depth 1.1 -Total Square Cm 5.6 -Wound/Ulcer Outcome Not Healed -Ulcer Cleansing Rinsed/ Irrigated with Saline -Foul Odor after Cleansing No -Bioengineered Tissue No -Bleeding Controlled with Pressure -Treatment Response Procedure Tolerated Well Pain Scale: 0-10 Numeric Is Patient Pain Free? Yes Wound debrided: #1 Left breast. Laterality: Left Wound Grade/Stage: 2. Type of Debridement: Excisional debridement Anesthesia Used: 4% Lidocaine Solution Depth: Down to and including healthy tissue, in the subcutaneous layer Percentage of wound debrided: 100 Instrument Used: 5mm curette Tissue Removed: subcutaneous tissue. Severity: Fat Layer Exposed Amount of bleeding with debridement: Mild Bleeding Controlled with: Pressure Patient tolerated procedure well Assessment/Plan Assessment: 1. Left breast cancer. 2. s/p lumpectomy with chemotherapy and radiation therapy. 3. Post-lumpectomy painful indentation scar contour deformity left lateral breast. 4. Late effect radiation left breast. 5. Disproportion reconstructed left breast. 6. Post-lumpectomy infected seroma left lateral breast. 7. s/p revision left breast reconstruction with excision painful infected lateral radiation lumpectomy scar contour deformity with completion mastectomy. Plan: Continue Silver dressing changes daily. She cannot do HBO until 6 months after radiation is finished which was in October. She can be re-evaluated in April for HBO. She was treated with Ceftriaxone for the Acinetobacter radioresistens and MRSE and has finished them. Encourage nutritional supplementation with protein to help the healing process. Followup 2 weeks. If we start HBO in April, we were going to tentatively schedule wound closure with a latissimus dorsi flap in May. After healing has occurred, can proceed with reconstruction with cohesive gel implants in September. However the patient has decided to hold off on any further surgery at this time. So will just proceed with the HBO treatments at this time at the end of April. She had a CXR in 02/02 which was normal.
[2018-05-02 09:02] VITALS: BP 120/90; PULSE 102; RESP 16; TEMP 36.7
--- NOTE | 2018-05-02 23:53 | PCM.WC.PN ---
Type of Wound Date of Service: 05/02/18 Chief Complaint: Open surgical mastectomy wound left breast after surgery 01/04/18. History of Wound: Surgery 01/04/18 - Revision left breast reconstruction with excision painful infected lateral radiation lumpectomy scar contour deformity with completion mastectomy. Wound care - Silver. Operative culture from recent hospitalization for infection - MRSE and Acinetobacter radioresistens. She was discharged on Ceftriaxone and has finished them. Today she denies fever. Her appetite is average. She finished radiation therapy for her left breast cancer in October. She cannot do HBO treatments until 6 months after the radiation therapy is done which would be in April. She was thinking about breast reconstruction in May with a latissimus flap but has decided to hold off on any further surgery at this time. Progress of Wound: Slightly improved. - Physical Exam Vital Signs Temp Pulse Resp BP 98.0 F 102 H 16 120/90 H 05/02/18 09:02 05/02/18 09:02 05/02/18 09:02 05/02/18 09:02 HEENT: TM's Clear - No bleeding noted. Wound Measurements and Assessment WC - Nurse 1 - General Ulcer Measurement Start: 04/18/18 08:33 Freq: Status: Active Protocol: Activity Type Activity Date Activity User E-Sign Co-Sign Detail Recorded Client Recorded Date Recorded By Document 05/02/18 09:02 [id number] 05/02/18 09:04 05/02/18 09:02 Wound Center Nurse 1 [Ulcer Assessment] #1- LT BREAST POST OP -Combined with other wound No -Current Size (cm) - Length 1.0 -Current Size (cm) - Width 9.2 -Current Size (cm) - Depth 1.2 -Total Square Cm 9.20 -Photo Taken No -Epithelialization Small 1-33% -Tunneling No -Undermining/Tunneling No -Circular Undermining No -Exudate Amt Small (1-33%) -Exudate Type Serosanguineous -Wound Margin Distinct, Outline Attached -Granulation Amt Medium (34-66%) -Granulation Quality [place] -Slough/Fibrin No -Necrosis Amt None Present (0 %) -Structure Exposed None/Limited to Skin Breakdown -Texture (Anni-wound Skin Appearance) Assessed -Moisture (Anni-wound Skin Appearance No Abnormality ) Assessed -Color (Anni-wound Skin Appearance) No Abnormality Assessed -Temperature (Anni-wound Skin No Abnormality Appearance) (Pt Warm) -Tenderness on Palpation (Anni-wound Yes Skin Appearance) -Ulcer Cleansing Rinsed/ Irrigated with Saline -Foul Odor after Cleansing No -Anesthetic Used 4% Lidocaine Solution [Edema Assessment] -Lower Limb Edema Present NA - Nurse 2 - General Ulcer CM Notes Start: 04/18/18 08:33 Freq: Status: Active Protocol: Activity Type Activity Date Activity User E-Sign Co-Sign Detail Recorded Client Recorded Date Recorded By Document 05/02/18 09:25 [id number] 05/02/18 09:36 05/02/18 09:25 Wound Center Nurse 2 [Procedure/Treatment] #1- LT BREAST POST OP -Time 09:25 -Correct Patient Yes -Correct Side, Site, Position Yes -Correct Procedure Yes -Procedure Performed Yes -Type of Procedure Debridement -Clinical Debridement Subcutaneous -Post Debridement Size (cm) - Length 1.1 -Post Debridement Size (cm) - Width 9.3 -Post Debridement Size (cm) - Depth 1.3 -Total Square Cm 10.23 -Wound/Ulcer Outcome Not Healed -Ulcer Cleansing Rinsed/ Irrigated with Saline -Foul Odor after Cleansing No -Bioengineered Tissue No -Topical Lidocaine (%) 4 -Lidocaine (ml) 5 -Bleeding Controlled with NA -Treatment Response Procedure Tolerated Well [See Physician Procedure note for Specifics] Pain Scale: 0-10 Numeric [Pain] -Is Patient Pain Free? Yes Debridement Note Post-Debridement Measurements/Treatment - Nurse 2 - General Ulcer CM Notes Start: 04/18/18 08:33 Freq: Status: Active Protocol: Activity Type Activity Date Activity User E-Sign Co-Sign Detail Recorded Client Recorded Date Recorded By Document 04/18/18 09:00 [id number] 04/18/18 09:01 Document 05/02/18 09:25 [email or web address] [id number] 05/02/18 09:36 JS 04/18/18 05/02/18 09:00 09:25 Wound Center Nurse 2 #1- LT BREAST POST OP -Time 09:00 09:25 -Correct Patient Yes Yes -Correct Side, Site, Position Yes Yes -Correct Procedure Yes Yes -Procedure Performed Yes Yes -Type of Procedure Debridement Debridement -Clinical Debridement Subcutaneous Subcutaneous -Post Debridement Size (cm) - Length 0.8 1.1 -Post Debridement Size (cm) - Width 7 9.3 -Post Debridement Size (cm) - Depth 1.1 1.3 -Total Square Cm 5.6 10.23 -Wound/Ulcer Outcome Not Healed Not Healed -Ulcer Cleansing Rinsed/ Rinsed/ Irrigated with Irrigated with Saline Saline -Foul Odor after Cleansing No No -Bioengineered Tissue No No -Topical Lidocaine (%) 4 -Lidocaine (ml) 5 -Bleeding Controlled with Pressure NA -Treatment Response Procedure Procedure Tolerated Well Tolerated Well Pain Scale: 0-10 Numeric Is Patient Pain Free? Yes Yes Wound debrided: #1 Left breast. Laterality: Left Wound Grade/Stage: 2. Type of Debridement: Excisional debridement Anesthesia Used: 4% Lidocaine Solution Depth: Down to and including healthy tissue, in the subcutaneous layer Percentage of wound debrided: 100 Instrument Used: 5mm curette Tissue Removed: subcutaneous tissue. Severity: Fat Layer Exposed Amount of bleeding with debridement: Mild Bleeding Controlled with: Pressure Patient tolerated procedure well Assessment/Plan Assessment: 1. Left breast cancer. 2. s/p lumpectomy with chemotherapy and radiation therapy. 3. Post-lumpectomy painful indentation scar contour deformity left lateral breast. 4. Late effect radiation left breast. 5. Disproportion reconstructed left breast. 6. Post-lumpectomy infected seroma left lateral breast. 7. s/p revision left breast reconstruction with excision painful infected lateral radiation lumpectomy scar contour deformity with completion mastectomy. Plan: Continue Silver dressing changes daily. She cannot do HBO until 6 months after radiation is finished which was in October. She can be re-evaluated in April for HBO. She was treated with Ceftriaxone for the Acinetobacter radioresistens and MRSE and has finished them. Encourage nutritional supplementation with protein to help the healing process. Followup 3 weeks. If we start HBO in April, we were going to tentatively schedule wound closure with a latissimus dorsi flap in May. After healing has occurred, can proceed with reconstruction with cohesive gel implants in September. However the patient has decided to hold off on any further surgery at this time. So will just proceed with the HBO treatments at this time at the end of April. She had a CXR in 02/02 which was normal.
--- NOTE | 2018-06-15 19:03 | PCM.HBO.PN ---
History of Present Illness Date of Service: 06/15/18 Presenting Chief Complaint: Soft tissue radiation necrosis left breast and nonhealing mastectomy ulcer left breast. VARINDER LACEY is a 33 year old currently undergoing hyperbaric oxygen therapy for soft tissue radiation necrosis left breast and nonhealing mastectomy ulcer left breast. Progress: The patient appears to be tolerating hyperbaric oxygen therapy well. Today's session represents the 7th HBO treatment. Tolerance of hyperbaric oxygen therapy: Hyperbaric oxygen therapy was administered as per the facility's protocol. Patient tolerated hyperbaric oxygen therapy well, without complaints or complications. Upon emergence from the hyperbaric chamber, the patient's vital signs remained stable. Patient was discharged in good condition. Past Medical History Chronic Problems (Last Reviewed 06/13/18 @ 09:12 by Mile Healy) Anemia (Chronic) Intermittent epigastric abdominal pain (Chronic) Personal history of malignant neoplasm of breast (Chronic) Cancer of left female breast (Chronic) Fatty liver (Chronic) STEVE (obstructive sleep apnea) (Chronic) Chronic back pain (Chronic) Hypothyroidism (Chronic) Narcolepsy (Chronic) Anxiety and depression (Chronic) Allergies/Adverse Reactions: Allergies hydromorphone [From Dilaudid] Allergy (Severe, Verified 06/13/18 09:14) Laryngospasms morphine Allergy (Severe, Verified 06/13/18 09:14) chest tightening TAPE Adverse Reaction (Mild, Uncoded 06/13/18 08:58) Other Home Medications: Ambulatory Orders Medication Instructions Recorded Albuterol Aerosols [Ventolin 2.5 mg INHALATION Q2H PRN PRN 01/17/18 Aerosols] vial.neb. Silver/Hydrocolloid Dressing 1 ea TP .QDAILY #30 bandage 01/17/18 [Aquacel-Ag W-Hydrofiber Dress] levothyroxine 150 mcg tablet 150 mcg PO DAILY@0600 #30 tab 01/27/18 liothyronine 5 mcg tablet 5 mcg PO DAILY #30 tab 01/27/18 Maternal Family History: Family History (Last Reviewed 06/13/18 @ 09:12 by Mile Healy) Mother Psychiatric disorder Thyroid disorder Father Hyperlipidemia Hypertension Father Heart disease Aunt Seizures Grandmother Cancer Colon cancer Grandfather Diabetes Heart disease Family History: - - Thyroid disease, psychiatric disorder. Paternal Family History: Family History (Last Reviewed 06/13/18 @ 09:12 by Mile Healy) Mother Psychiatric disorder Thyroid disorder Father Hyperlipidemia Hypertension Father Heart disease Aunt Seizures Grandmother Cancer Colon cancer Grandfather Diabetes Heart disease Family History: Heart Disease, Hypertension Smoking Status: Former smoker Physical Exam Vital Signs Temp Pulse Resp BP 98.0 F 102 H 16 120/90 H 05/02/18 09:02 05/02/18 09:02 05/02/18 09:02 05/02/18 09:02
== END 2018-05-17 23:59 ==
LOC: WC 09:00
PROVIDERS: Family Provider Family Medicine; PCP Family Medicine; Visit Provider Surgery
DX: C50.912 Malignant neoplasm of unspecified site of left female breast (principal); N65.0 Deformity of reconstructed breast; N65.1 Disproportion of reconstructed breast; L59.8 Other specified disorders of the skin and subcutaneous tissue related to radiation; L90.5 Scar conditions and fibrosis of skin; N61.0 Mastitis without abscess; L76.34 Postprocedural seroma of skin and subcutaneous tissue following other procedure; Y83.8 Other surgical procedures as the cause of abnormal reaction of the patient, or of later complication, without mention of misadventure at the time of the procedure
CPT/HCPCS: 11042

== ENCOUNTER 2018-05-10 08:30 | Outpatient (RCR) | payer BC, OTHER, SELFPAY ==
[2017-09-29 13:07] VITALS: BMI 36.4
== END 2018-05-17 23:59 ==
LOC: NS 08:30
PROVIDERS: Family Provider Family Medicine; PCP Family Medicine; Visit Provider Surgery
DX: E66.9 Obesity, unspecified (principal); Z68.32 Body mass index [BMI] 32.0-32.9, adult; Z85.3 Personal history of malignant neoplasm of breast; Z71.3 Dietary counseling and surveillance
CPT/HCPCS: 97803

== ENCOUNTER 2018-06-06 09:33 | Outpatient (RCR) | payer BC, OTHER, SELFPAY ==
[2017-09-29 13:07] VITALS: BMI 36.4
== END 2018-06-17 23:59 ==
LOC: NS 09:33
PROVIDERS: Family Provider Family Medicine; PCP Family Medicine; Visit Provider Surgery
DX: E66.9 Obesity, unspecified (principal); Z68.32 Body mass index [BMI] 32.0-32.9, adult; Z85.3 Personal history of malignant neoplasm of breast; Z71.3 Dietary counseling and surveillance

== ENCOUNTER 2018-06-17 13:00 | Outpatient (RCR) | payer BC, OTHER, SELFPAY ==
[2017-09-29 13:07] VITALS: BMI 36.4
[2018-05-18 00:45] VITALS: BP 120/90; PULSE 102; RESP 16; TEMP 36.7
[2018-05-23 08:32] VITALS: BP 118/76; PULSE 96; RESP 16; TEMP 36.8
--- NOTE | 2018-05-23 17:09 | PCM.WC.PN ---
Type of Wound Date of Service: 05/23/18 Chief Complaint: Open surgical mastectomy wound left breast after surgery 01/04/18. History of Wound: Surgery 01/04/18 - Revision left breast reconstruction with excision painful infected lateral radiation lumpectomy scar contour deformity with completion mastectomy. Wound care - Silver. Operative culture from recent hospitalization for infection - MRSE and Acinetobacter radioresistens. She was discharged on Ceftriaxone and has finished them. Today she denies fever. Her appetite is average. She finished radiation therapy for her left breast cancer in October. She cannot do HBO treatments until 6 months after the radiation therapy is done which would be in April. She was thinking about breast reconstruction in May with a latissimus flap but has decided to hold off on any further surgery at this time. Her HBO treatments have been approved and she is scheduled to start this week. Progress of Wound: Improved. - Physical Exam Vital Signs Temp Pulse Resp BP 98.2 F 96 16 118/76 05/23/18 08:32 05/23/18 08:32 05/23/18 08:32 05/23/18 08:32 Wound Measurements and Assessment WC - Nurse 1 - General Ulcer Measurement Start: 05/23/18 08:31 Freq: Status: Active Protocol: Activity Type Activity Date Activity User E-Sign Co-Sign Detail Recorded Client Recorded Date Recorded By Document 05/23/18 08:32 [id number] 05/23/18 08:34 05/23/18 08:32 Wound Center Nurse 1 [Ulcer Assessment] #1- LT BREAST POST OP -Combined with other wound No -Current Size (cm) - Length 0.5 -Current Size (cm) - Width 1.4 -Current Size (cm) - Depth 0.1 -Total Square Cm 0.70 -Photo Taken No -Epithelialization Medium 34-66% -Tunneling No -Undermining/Tunneling No -Circular Undermining No -Exudate Amt None Present (0 %) -Wound Margin Distinct, Outline Attached -Granulation Amt None Present (0 %) -Slough/Fibrin No -Necrosis Amt None Present (0 %) -Structure Exposed None/Limited to Skin Breakdown -Texture (Anni-wound Skin Appearance) Scarring -Moisture (Anni-wound Skin Appearance No Abnormality ) Assessed -Color (Anni-wound Skin Appearance) No Abnormality Assessed -Temperature (Anni-wound Skin No Abnormality Appearance) (Pt Warm) -Tenderness on Palpation (Anni-wound No Skin Appearance) -Ulcer Cleansing Rinsed/ Irrigated with Saline -Foul Odor after Cleansing No -Anesthetic Used 5% Lidocaine Gel [Edema Assessment] -Lower Limb Edema Present No - Nurse 2 - General Ulcer CM Notes Start: 05/23/18 08:31 Freq: Status: Active Protocol: Activity Type Activity Date Activity User E-Sign Co-Sign Detail Recorded Client Recorded Date Recorded By Document 05/23/18 09:00 [id number] 05/23/18 09:01 05/23/18 09:00 Wound Center Nurse 2 [Procedure/Treatment] #1- LT BREAST POST OP -Time 09:00 -Correct Patient Yes -Correct Side, Site, Position Yes -Correct Procedure Yes -Procedure Performed Yes -Type of Procedure Debridement -Clinical Debridement Subcutaneous -Post Debridement Size (cm) - Length 0.6 -Post Debridement Size (cm) - Width 1.4 -Post Debridement Size (cm) - Depth 0.1 -Total Square Cm 0.84 -Wound/Ulcer Outcome Not Healed -Ulcer Cleansing Rinsed/ Irrigated with Saline -Foul Odor after Cleansing No -Bioengineered Tissue No -Bleeding Controlled with Pressure -Treatment Response Procedure Tolerated Well [See Physician Procedure note for Specifics] Pain Scale: 0-10 Numeric [Pain] -Is Patient Pain Free? Yes Debridement Note Post-Debridement Measurements/Treatment - Nurse 2 - General Ulcer CM Notes Start: 05/23/18 08:31 Freq: Status: Active Protocol: Activity Type Activity Date Activity User E-Sign Co-Sign Detail Recorded Client Recorded Date Recorded By Document 05/23/18 09:00 [id number] 05/23/18 09:01 05/23/18 09:00 Wound Center Nurse 2 #1- LT BREAST POST OP -Time 09:00 -Correct Patient Yes -Correct Side, Site, Position Yes -Correct Procedure Yes -Procedure Performed Yes -Type of Procedure Debridement -Clinical Debridement Subcutaneous -Post Debridement Size (cm) - Length 0.6 -Post Debridement Size (cm) - Width 1.4 -Post Debridement Size (cm) - Depth 0.1 -Total Square Cm 0.84 -Wound/Ulcer Outcome Not Healed -Ulcer Cleansing Rinsed/ Irrigated with Saline -Foul Odor after Cleansing No -Bioengineered Tissue No -Bleeding Controlled with Pressure -Treatment Response Procedure Tolerated Well Pain Scale: 0-10 Numeric Is Patient Pain Free? Yes Wound debrided: #1 Left breast. Laterality: Left Wound Grade/Stage: 2. Type of Debridement: Excisional debridement Anesthesia Used: 4% Lidocaine Solution Depth: Down to and including healthy tissue, in the subcutaneous layer Percentage of wound debrided: 100 Instrument Used: 3mm curette Tissue Removed: subcutaneous tissue. Severity: Fat Layer Exposed Amount of bleeding with debridement: Mild Bleeding Controlled with: Pressure Patient tolerated procedure well Assessment/Plan Assessment: 1. Left breast cancer. 2. s/p lumpectomy with chemotherapy and radiation therapy. 3. Post-lumpectomy painful indentation scar contour deformity left lateral breast. 4. Late effect radiation left breast. 5. Disproportion reconstructed left breast. 6. Post-lumpectomy infected seroma left lateral breast. 7. s/p revision left breast reconstruction with excision painful infected lateral radiation lumpectomy scar contour deformity with completion mastectomy. Plan: Continue Silver dressing changes daily. She cannot do HBO until 6 months after radiation is finished which was in October. Her HBO has been approved and she is scheduled to start this week. Encourage nutritional supplementation with protein to help the healing process. Followup 2 weeks. When HBO starts, we were going to tentatively schedule wound closure with a latissimus dorsi flap. After healing has occurred, can proceed with reconstruction with cohesive gel implants in September. However the patient has decided to hold off on any further flap surgery at this time. She initially just wanted to proceed with the HBO treatments at this time. Now she wants revision of her left breast mastectomy wound with excision excess mastectomy skin scar contour deformity. She would like the mastectomy skin flatter on the chest wall since her external prostheses have been a little sore because of the excess tissue present. Will schedule that toward the end of the month or in June. Would like to do some treatments preop and continue them postop because of her radiation damage.
--- NOTE | 2018-05-24 09:39 | NURSING ---
This nurse called pt to set up start date and time for HBO at 0930. Had to leave message.
[2018-06-06 09:11] VITALS: BP 127/83; PULSE 105; RESP 16; TEMP 36.6
[2018-06-06 13:30] VITALS: BP 128/90; BP 135/87; PULSE 120; PULSE 97; RESP 16; RESP 18; TEMP 36.3; TEMP 36.9
--- NOTE | 2018-06-06 22:42 | PN.PCM_ITS ---
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 History of Wound: Surgery 01/04/18 - Revision left breast reconstruction with excision painful infected lateral radiation lumpectomy scar contour deformity with completion mastectomy. Wound care - Silver. Operative culture from recent hospitalization for infection - MRSE and Acinetobacter radioresistens. She was discharged on Ceftriaxone and has finished them. Today she denies fever. Her appetite is average. She finished radiation therapy for her left breast cancer in October. She cannot do HBO treatments until 6 months after the radiation therapy is done which would be in April. She was thinking about breast reconstruction in May with a latissimus flap but has decided to hold off on any further surgery at this time. Her HBO treatments have been approved and she is scheduled to start today. Progress of Wound: Improved. - Physical Exam Vital Signs Temp Pulse Resp BP 98.5 F 120 H 18 128/90 H 06/06/18 13:30 06/06/18 13:30 06/06/18 13:30 06/06/18 13:30 Wound Measurements and Assessment WC - Nurse 1 - General Ulcer Measurement Start: 05/23/18 08:31 Freq: Status: Active Protocol: Activity Type Activity Date Activity User E-Sign Co-Sign Detail Recorded Client Recorded Date Recorded By Document 06/06/18 09:11 [email or web address] [id number] 06/06/18 09:21 TN 06/06/18 09:11 Wound Center Nurse 1 [Ulcer Assessment] #1- LT BREAST POST OP -Combined with other wound No -Current Size (cm) - Length 1 -Current Size (cm) - Width 2.5 -Current Size (cm) - Depth 0.1 -Total Square Cm 2.5 -Date of Last Picture (Recall this 06/06/18 field) -Photo Taken Yes -Epithelialization None Present -Tunneling No -Undermining/Tunneling No -Circular Undermining No -Classification - Thickness Full Thickness without Exposed Support Structure -Exudate Amt None Present (0 %) -Wound Margin Flat & Intact -Granulation Amt Large (67-100%) -Granulation Quality [place] -Slough/Fibrin Yes -Necrotic Tissue Type Adherent Slough -Structure Exposed None/Limited to Skin Breakdown -Texture (Anni-wound Skin Appearance) No Abnormality Assessed -Moisture (Anni-wound Skin Appearance No Abnormality ) Assessed -Color (Anni-wound Skin Appearance) No Abnormality Assessed -Temperature (Anni-wound Skin No Abnormality Appearance) (Pt Warm) -Tenderness on Palpation (Anni-wound No Skin Appearance) -Ulcer Cleansing Rinsed/ Irrigated with Saline -Foul Odor after Cleansing No -Anesthetic Used 5% Lidocaine Gel [Edema Assessment] -Lower Limb Edema Present No WC - Nurse 2 - General Ulcer CM Notes Start: 05/23/18 08:31 Freq: Status: Active Protocol: Activity Type Activity Date Activity User E-Sign Co-Sign Detail Recorded Client Recorded Date Recorded By Document 06/06/18 09:40 [id number] 06/06/18 09:40 06/06/18 09:40 Wound Center Nurse 2 [Procedure/Treatment] #1- LT BREAST POST OP -Time 09:40 -Correct Patient Yes -Correct Side, Site, Position Yes -Correct Procedure Yes -Procedure Performed Yes -Type of Procedure Debridement -Clinical Debridement Subcutaneous -Post Debridement Size (cm) - Length 1.1 -Post Debridement Size (cm) - Width 2.5 -Post Debridement Size (cm) - Depth 0.1 -Total Square Cm 2.75 -Wound/Ulcer Outcome Not Healed -Ulcer Cleansing Rinsed/ Irrigated with Saline -Foul Odor after Cleansing No -Bioengineered Tissue No -Bleeding Controlled with Pressure -Treatment Response Procedure Tolerated Well [See Physician Procedure note for Specifics] Pain Scale: 0-10 Numeric [Pain] -Is Patient Pain Free? Yes Debridement Note Post-Debridement Measurements/Treatment - Nurse 2 - General Ulcer CM Notes Start: 05/23/18 08:31 Freq: Status: Active Protocol: Activity Type Activity Date Activity User E-Sign Co-Sign Detail Recorded Client Recorded Date Recorded By Document 05/23/18 09:00 [id number] 05/23/18 09:01 Document 06/06/18 09:40 [id number] 06/06/18 09:40 05/23/18 06/06/18 09:00 09:40 Wound Center Nurse 2 #1- LT BREAST POST OP -Time 09:00 09:40 -Correct Patient Yes Yes -Correct Side, Site, Position Yes Yes -Correct Procedure Yes Yes -Procedure Performed Yes Yes -Type of Procedure Debridement Debridement -Clinical Debridement Subcutaneous Subcutaneous -Post Debridement Size (cm) - Length 0.6 1.1 -Post Debridement Size (cm) - Width 1.4 2.5 -Post Debridement Size (cm) - Depth 0.1 0.1 -Total Square Cm 0.84 2.75 -Wound/Ulcer Outcome Not Healed Not Healed -Ulcer Cleansing Rinsed/ Rinsed/ Irrigated with Irrigated with Saline Saline -Foul Odor after Cleansing No No -Bioengineered Tissue No No -Bleeding Controlled with Pressure Pressure -Treatment Response Procedure Procedure Tolerated Well Tolerated Well Pain Scale: 0-10 Numeric Is Patient Pain Free? Yes Yes Wound debrided: #1 Left breast. Laterality: Left Wound Grade/Stage: 2. Type of Debridement: Excisional debridement Anesthesia Used: 4% Lidocaine Solution Depth: Down to and including healthy tissue, in the subcutaneous layer Percentage of wound debrided: 100 Instrument Used: 3mm curette Tissue Removed: subcutaneous tissue. Severity: Fat Layer Exposed Amount of bleeding with debridement: Mild Bleeding Controlled with: Pressure Patient tolerated procedure well Assessment/Plan Assessment: 1. Left breast cancer. 2. s/p lumpectomy with chemotherapy and radiation therapy. 3. Post-lumpectomy painful indentation scar contour deformity left lateral breast. 4. Late effect radiation left breast. 5. Disproportion reconstructed left breast. 6. Post-lumpectomy infected seroma left lateral breast. 7. s/p revision left breast reconstruction with excision painful infected lateral radiation lumpectomy scar contour deformity with completion mastectomy. 8. 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 Plan: Continue Silver dressing changes daily. She has been approved for HBO and is due to start today. Encourage nutritional supplementation with protein to help the healing process. She wants revision of her left breast mastectomy wound with excision excess mastectomy skin scar contour deformity. She would like the mastectomy skin flatter on the chest wall since her external prostheses have been a little sore because of the excess tissue present. That has been scheduled for next week. Would like to do some HBO treatments preop and continue them postop because of her radiation damage. Patient was informed of the risks and complications of the procedure including alternatives to surgery. These were discussed with her personally. She voices understanding and wishes to proceed. Followup 2 weeks in my office which will be postop. Followup at [facility] in 4 weeks.
--- NOTE | 2018-06-06 22:56 | PCM.HBO.PN ---
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 VARINDER LACEY is a 33 year old currently undergoing hyperbaric oxygen therapy for soft tissue radiation necrosis left breast and nonhealing mastectomy ulcer left breast. Progress: The patient appears to be tolerating hyperbaric oxygen therapy well. Today's session represents the 1st HBO treatment. Tolerance of hyperbaric oxygen therapy: Hyperbaric oxygen therapy was administered as per the facility's protocol. Patient tolerated hyperbaric oxygen therapy well, without complaints or complications. Upon emergence from the hyperbaric chamber, the patient's vital signs remained stable. Patient was discharged in good condition. Past Medical History Chronic Problems (Last Reviewed 06/13/18 @ 09:12 by Mile Healy) Anemia (Chronic) Intermittent epigastric abdominal pain (Chronic) Personal history of malignant neoplasm of breast (Chronic) Cancer of left female breast (Chronic) Fatty liver (Chronic) STEVE (obstructive sleep apnea) (Chronic) Chronic back pain (Chronic) Hypothyroidism (Chronic) Narcolepsy (Chronic) Anxiety and depression (Chronic) Allergies/Adverse Reactions: Allergies hydromorphone [From Dilaudid] Allergy (Severe, Verified 06/13/18 09:14) Laryngospasms morphine Allergy (Severe, Verified 06/13/18 09:14) chest tightening TAPE Adverse Reaction (Mild, Uncoded 06/13/18 08:58) Other Home Medications: Ambulatory Orders Medication Instructions Recorded Albuterol Aerosols [Ventolin 2.5 mg INHALATION Q2H PRN PRN 01/17/18 Aerosols] vial.neb. Silver/Hydrocolloid Dressing 1 ea TP .QDAILY #30 bandage 01/17/18 [Aquacel-Ag W-Hydrofiber Dress] levothyroxine 150 mcg tablet 150 mcg PO DAILY@0600 #30 tab 01/27/18 liothyronine 5 mcg tablet 5 mcg PO DAILY #30 tab 01/27/18 Maternal Family History: Family History (Last Reviewed 06/13/18 @ 09:12 by Mile Healy) Mother Psychiatric disorder Thyroid disorder Father Hyperlipidemia Hypertension Father Heart disease Aunt Seizures Grandmother Cancer Colon cancer Grandfather Diabetes Heart disease Family History: - - Thyroid disease, psychiatric disorder. Paternal Family History: Family History (Last Reviewed 06/13/18 @ 09:12 by Mile Healy) Mother Psychiatric disorder Thyroid disorder Father Hyperlipidemia Hypertension Father Heart disease Aunt Seizures Grandmother Cancer Colon cancer Grandfather Diabetes Heart disease Family History: Heart Disease, Hypertension Smoking Status: Former smoker Physical Exam Vital Signs Temp Pulse Resp BP 98.5 F 120 H 18 128/90 H 06/06/18 13:30 06/06/18 13:30 06/06/18 13:30 06/06/18 13:30
[2018-06-07 13:05] VITALS: BP 155/84; BP 156/86; PULSE 110; PULSE 95; RESP 16; TEMP 36.4; TEMP 36.7
--- NOTE | 2018-06-07 15:22 | PCM.HBO.PN ---
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 Today's session represents the second such session of hyperbaric oxygen therapy. Tolerance of hyperbaric oxygen therapy: Hyperbaric oxygen therapy was administered as per the facility's protocol. Patient tolerated hyperbaric oxygen therapy well, without complaints or complications. Upon emergence from the hyperbaric chamber, the patient's vital signs remained stable. Patient was discharged in good condition. Past Medical History Chronic Problems (Last Reviewed 05/23/18 @ 09:49 by Augustina Campuzano) Anemia (Chronic) Intermittent epigastric abdominal pain (Chronic) Personal history of malignant neoplasm of breast (Chronic) Cancer of left female breast (Chronic) Fatty liver (Chronic) STEVE (obstructive sleep apnea) (Chronic) Chronic back pain (Chronic) Hypothyroidism (Chronic) Narcolepsy (Chronic) Anxiety and depression (Chronic) Allergies/Adverse Reactions: Allergies hydromorphone [From Dilaudid] Allergy (Severe, Verified 05/31/18 09:41) Laryngospasms morphine Allergy (Severe, Verified 05/31/18 09:41) chest tightening TAPE Adverse Reaction (Mild, Uncoded 05/31/18 09:41) Other Home Medications: Ambulatory Orders Medication Instructions Recorded Albuterol Aerosols [Ventolin 2.5 mg INHALATION Q2H PRN PRN 01/17/18 Aerosols] vial.neb. Silver/Hydrocolloid Dressing 1 ea TP .QDAILY #30 bandage 01/17/18 [Aquac-Ag W-Hydrofiber Dress] levothyroxine 150 mcg tablet 150 mcg PO DAILY@0600 #30 tab 01/27/18 liothyronine 5 mcg tablet 5 mcg PO DAILY #30 tab 01/27/18 Trastuzumab [Herceptin] 150 mg IV QWEEK MDD every 3 weeks 04/18/18 Tamoxifen Citrate [Nolvadex] 20 mg PO DAILY 04/25/18 Maternal Family History: Family History (Last Reviewed 05/31/18 @ 09:42 by Ewa Flores) Mother Psychiatric disorder Thyroid disorder Father Hyperlipidemia Hypertension Father Heart disease Aunt Seizures Grandmother Cancer Colon cancer Grandfather Diabetes Heart disease Family History: - - Thyroid disease, psychiatric disorder. Paternal Family History: Family History (Last Reviewed 05/31/18 @ 09:42 by Ewa Flores) Mother Psychiatric disorder Thyroid disorder Father Hyperlipidemia Hypertension Father Heart disease Aunt Seizures Grandmother Cancer Colon cancer Grandfather Diabetes Heart disease Family History: Heart Disease, Hypertension Smoking Status: Former smoker Physical Exam Vital Signs Temp Pulse Resp BP 98.1 F 110 H 16 156/86 H 06/07/18 13:05 06/07/18 13:05 06/07/18 13:05 06/07/18 13:05 General: Alert, Oriented x3, Cooperative, No apparent distress, Well developed, Well nourished HEENT: Atraumatic, PERRLA, EOMI, Normocephalic Lungs: Normal air movement Psych/Mental Status: Normal Affect, Appropriate, Alert and oriented to time, place, person, mood and affect Assessment/Plan The patient appears to be tolerating hyperbaric oxygen therapy well, which will be continued as per the patient's medical plan.
[2018-06-08 15:38] VITALS: BP 121/91; BP 135/89; PULSE 119; PULSE 96; RESP 18; TEMP 36.5; TEMP 36.8
[2018-06-09 13:05] VITALS: BP 133/88; BP 156/91; PULSE 83; PULSE 95; RESP 16; TEMP 36.6; TEMP 36.8
--- NOTE | 2018-06-09 14:56 | PCM.HBO.PN ---
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 Today's session represents the 4th such session of hyperbaric oxygen therapy. Tolerance of hyperbaric oxygen therapy: Hyperbaric oxygen therapy was administered as per the facility's protocol. Patient tolerated hyperbaric oxygen therapy well, without complaints or complications. Upon emergence from the hyperbaric chamber, the patient's vital signs remained stable. Patient was discharged in good condition. Past Medical History Chronic Problems (Last Reviewed 05/23/18 @ 09:49 by Augustina Campuzano) Anemia (Chronic) Intermittent epigastric abdominal pain (Chronic) Personal history of malignant neoplasm of breast (Chronic) Cancer of left female breast (Chronic) Fatty liver (Chronic) STEVE (obstructive sleep apnea) (Chronic) Chronic back pain (Chronic) Hypothyroidism (Chronic) Narcolepsy (Chronic) Anxiety and depression (Chronic) Allergies/Adverse Reactions: Allergies hydromorphone [From Dilaudid] Allergy (Severe, Verified 05/31/18 09:41) Laryngospasms morphine Allergy (Severe, Verified 05/31/18 09:41) chest tightening TAPE Adverse Reaction (Mild, Uncoded 05/31/18 09:41) Other Home Medications: Ambulatory Orders Medication Instructions Recorded Albuterol Aerosols [Ventolin 2.5 mg INHALATION Q2H PRN PRN 01/17/18 Aerosols] vial.neb. Silver/Hydrocolloid Dressing 1 ea TP .QDAILY #30 bandage 01/17/18 [Aquac-Ag W-Hydrofiber Dress] levothyroxine 150 mcg tablet 150 mcg PO DAILY@0600 #30 tab 01/27/18 liothyronine 5 mcg tablet 5 mcg PO DAILY #30 tab 01/27/18 Trastuzumab [Herceptin] 150 mg IV QWEEK MDD every 3 weeks 04/18/18 Tamoxifen Citrate [Nolvadex] 20 mg PO DAILY 04/25/18 Maternal Family History: Family History (Last Reviewed 05/31/18 @ 09:42 by Ewa Flores) Mother Psychiatric disorder Thyroid disorder Father Hyperlipidemia Hypertension Father Heart disease Aunt Seizures Grandmother Cancer Colon cancer Grandfather Diabetes Heart disease Family History: - - Thyroid disease, psychiatric disorder. Paternal Family History: Family History (Last Reviewed 05/31/18 @ 09:42 by Ewa Flores) Mother Psychiatric disorder Thyroid disorder Father Hyperlipidemia Hypertension Father Heart disease Aunt Seizures Grandmother Cancer Colon cancer Grandfather Diabetes Heart disease Family History: Heart Disease, Hypertension Smoking Status: Former smoker Physical Exam Vital Signs Temp Pulse Resp BP 98.3 F 95 16 133/88 H 06/09/18 13:05 06/09/18 13:05 06/09/18 13:05 06/09/18 13:05 General: Alert, Oriented x3, Cooperative, No apparent distress HEENT: Atraumatic, PERRLA, Normocephalic, TM's Clear Lungs: Clear to auscultation, Normal air movement Cardiovascular: Regular rate, Regular Rhythm, Normal S1, Normal S2 Psych/Mental Status: Normal Affect, Appropriate, Alert and oriented to time, place, person, mood and affect Assessment/Plan The patient appears to be tolerating hyperbaric oxygen therapy well, which will be continued as per the patient's medical plan.
[2018-06-10 13:03] VITALS: BP 147/95; BP 154/102; PULSE 101; PULSE 82; RESP 18; TEMP 36.4; TEMP 36.6
--- NOTE | 2018-06-10 20:35 | PCM.HBO.PN ---
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 Today's session represents the 5th such session of hyperbaric oxygen therapy. Tolerance of hyperbaric oxygen therapy: Hyperbaric oxygen therapy was administered as per the facility's protocol. Patient tolerated hyperbaric oxygen therapy well, without complaints or complications. Upon emergence from the hyperbaric chamber, the patient's vital signs remained stable. Patient was discharged in good condition. Past Medical History Chronic Problems (Last Reviewed 05/23/18 @ 09:49 by Augustina Campuzano) Anemia (Chronic) Intermittent epigastric abdominal pain (Chronic) Personal history of malignant neoplasm of breast (Chronic) Cancer of left female breast (Chronic) Fatty liver (Chronic) STEVE (obstructive sleep apnea) (Chronic) Chronic back pain (Chronic) Hypothyroidism (Chronic) Narcolepsy (Chronic) Anxiety and depression (Chronic) Allergies/Adverse Reactions: Allergies hydromorphone [From Dilaudid] Allergy (Severe, Verified 05/31/18 09:41) Laryngospasms morphine Allergy (Severe, Verified 05/31/18 09:41) chest tightening TAPE Adverse Reaction (Mild, Uncoded 05/31/18 09:41) Other Home Medications: Ambulatory Orders Medication Instructions Recorded Albuterol Aerosols [Ventolin 2.5 mg INHALATION Q2H PRN PRN 01/17/18 Aerosols] vial.neb. Silver/Hydrocolloid Dressing 1 ea TP .QDAILY #30 bandage 01/17/18 [Aquac-Ag W-Hydrofiber Dress] levothyroxine 150 mcg tablet 150 mcg PO DAILY@0600 #30 tab 01/27/18 liothyronine 5 mcg tablet 5 mcg PO DAILY #30 tab 01/27/18 Trastuzumab [Herceptin] 150 mg IV QWEEK MDD every 3 weeks 04/18/18 Tamoxifen Citrate [Nolvadex] 20 mg PO DAILY 04/25/18 Maternal Family History: Family History (Last Reviewed 05/31/18 @ 09:42 by Ewa Flores) Mother Psychiatric disorder Thyroid disorder Father Hyperlipidemia Hypertension Father Heart disease Aunt Seizures Grandmother Cancer Colon cancer Grandfather Diabetes Heart disease Family History: - - Thyroid disease, psychiatric disorder. Paternal Family History: Family History (Last Reviewed 05/31/18 @ 09:42 by Ewa Flores) Mother Psychiatric disorder Thyroid disorder Father Hyperlipidemia Hypertension Father Heart disease Aunt Seizures Grandmother Cancer Colon cancer Grandfather Diabetes Heart disease Family History: Heart Disease, Hypertension Smoking Status: Former smoker Alcohol: None Drugs: None Physical Exam Vital Signs Temp Pulse Resp BP 97.6 F L 101 H 18 154/102 H 06/10/18 13:03 06/10/18 13:03 06/10/18 13:03 06/10/18 13:03 General: Alert, Oriented x3, Cooperative, No apparent distress Psych/Mental Status: Normal Affect, Appropriate Assessment/Plan Active Problems (Last Reviewed 05/23/18 @ 09:49 by Augustina Campuzano) Open wound of left breast with complication (Acute) 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
[2018-06-13 12:00] VITALS: BP 127/79; BP 167/90; PULSE 76; PULSE 95; RESP 16; TEMP 36.4; TEMP 36.9
--- NOTE | 2018-06-13 16:16 | PCM.HBO.PN ---
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 Today's session represents the 6th such session of hyperbaric oxygen therapy. Tolerance of hyperbaric oxygen therapy: Hyperbaric oxygen therapy was administered as per the facility's protocol. Patient tolerated hyperbaric oxygen therapy well, without complaints or complications. Upon emergence from the hyperbaric chamber, the patient's vital signs remained stable. Patient was discharged in good condition. Past Medical History Chronic Problems (Last Reviewed 06/13/18 @ 09:12 by Mile Healy) Anemia (Chronic) Intermittent epigastric abdominal pain (Chronic) Personal history of malignant neoplasm of breast (Chronic) Cancer of left female breast (Chronic) Fatty liver (Chronic) STEVE (obstructive sleep apnea) (Chronic) Chronic back pain (Chronic) Hypothyroidism (Chronic) Narcolepsy (Chronic) Anxiety and depression (Chronic) Allergies/Adverse Reactions: Allergies hydromorphone [From Dilaudid] Allergy (Severe, Verified 06/13/18 09:14) Laryngospasms morphine Allergy (Severe, Verified 06/13/18 09:14) chest tightening TAPE Adverse Reaction (Mild, Uncoded 06/13/18 08:58) Other Home Medications: Ambulatory Orders Medication Instructions Recorded Albuterol Aerosols [Ventolin 2.5 mg INHALATION Q2H PRN PRN 01/17/18 Aerosols] vial.neb. Silver/Hydrocolloid Dressing 1 ea TP .QDAILY #30 bandage 01/17/18 [Aquacel- W-Hydrofiber Dress] levothyroxine 150 mcg tablet 150 mcg PO DAILY@0600 #30 tab 01/27/18 liothyronine 5 mcg tablet 5 mcg PO DAILY #30 tab 01/27/18 Maternal Family History: Family History (Last Reviewed 06/13/18 @ 09:12 by Mile Healy) Mother Psychiatric disorder Thyroid disorder Father Hyperlipidemia Hypertension Father Heart disease Aunt Seizures Grandmother Cancer Colon cancer Grandfather Diabetes Heart disease Family History: - - Thyroid disease, psychiatric disorder. Paternal Family History: Family History (Last Reviewed 06/13/18 @ 09:12 by Mile Healy) Mother Psychiatric disorder Thyroid disorder Father Hyperlipidemia Hypertension Father Heart disease Aunt Seizures Grandmother Cancer Colon cancer Grandfather Diabetes Heart disease Family History: Heart Disease, Hypertension Smoking Status: Former smoker Alcohol: None Drugs: None Physical Exam Vital Signs Temp Pulse Resp BP 98.4 F 95 16 167/90 H 06/13/18 12:00 06/13/18 12:00 06/13/18 12:00 06/13/18 12:00 General: Alert, Oriented x3, Cooperative, No apparent distress, Well developed, Well nourished HEENT: Atraumatic, PERRLA, EOMI, Normocephalic Lungs: Normal air movement Psych/Mental Status: Normal Affect, Appropriate, Irrational Behavior Assessment/Plan The patient appears to be tolerating hyperbaric oxygen therapy well, which will be continued as per the patient's medical plan.
[2018-06-15 12:59] VITALS: BP 141/91; BP 145/101; PULSE 123; PULSE 84; RESP 16; TEMP 36.6; TEMP 36.7
[2018-06-16 13:10] VITALS: BP 143/89; BP 149/92; PULSE 83; PULSE 99; RESP 16; RESP 18; TEMP 36.8
--- NOTE | 2018-06-16 15:06 | PCM.HBO.PN ---
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 Today's session represents the 7th such session of hyperbaric oxygen therapy. Tolerance of hyperbaric oxygen therapy: Hyperbaric oxygen therapy was administered as per the facility's protocol. Patient tolerated hyperbaric oxygen therapy well, without complaints or complications. Upon emergence from the hyperbaric chamber, the patient's vital signs remained stable. Patient was discharged in good condition. Past Medical History Chronic Problems (Last Reviewed 06/13/18 @ 09:12 by Mile Healy) Anemia (Chronic) Intermittent epigastric abdominal pain (Chronic) Personal history of malignant neoplasm of breast (Chronic) Cancer of left female breast (Chronic) Fatty liver (Chronic) STEVE (obstructive sleep apnea) (Chronic) Chronic back pain (Chronic) Hypothyroidism (Chronic) Narcolepsy (Chronic) Anxiety and depression (Chronic) Allergies/Adverse Reactions: Allergies hydromorphone [From Dilaudid] Allergy (Severe, Verified 06/13/18 09:14) Laryngospasms morphine Allergy (Severe, Verified 06/13/18 09:14) chest tightening TAPE Adverse Reaction (Mild, Uncoded 06/13/18 08:58) Other Home Medications: Ambulatory Orders Medication Instructions Recorded Albuterol Aerosols [Ventolin 2.5 mg INHALATION Q2H PRN PRN 01/17/18 Aerosols] vial.neb. Silver/Hydrocolloid Dressing 1 ea TP .QDAILY #30 bandage 01/17/18 [Aquacel-Ag W-Hydrofiber Dress] levothyroxine 150 mcg tablet 150 mcg PO DAILY@0600 #30 tab 01/27/18 liothyronine 5 mcg tablet 5 mcg PO DAILY #30 tab 01/27/18 Maternal Family History: Family History (Last Reviewed 06/13/18 @ 09:12 by Mile Healy) Mother Psychiatric disorder Thyroid disorder Father Hyperlipidemia Hypertension Father Heart disease Aunt Seizures Grandmother Cancer Colon cancer Grandfather Diabetes Heart disease Family History: - - Thyroid disease, psychiatric disorder. Paternal Family History: Family History (Last Reviewed 06/13/18 @ 09:12 by Mile Healy) Mother Psychiatric disorder Thyroid disorder Father Hyperlipidemia Hypertension Father Heart disease Aunt Seizures Grandmother Cancer Colon cancer Grandfather Diabetes Heart disease Family History: Heart Disease, Hypertension Smoking Status: Former smoker Alcohol: None Drugs: None Physical Exam Vital Signs Temp Pulse Resp BP 98.3 F 99 18 143/89 H 06/16/18 13:10 06/16/18 13:10 06/16/18 13:10 06/16/18 13:10 General: Alert, Oriented x3, Cooperative, No apparent distress HEENT: Atraumatic, PERRLA, Normocephalic, TM's Clear Lungs: Clear to auscultation, Normal air movement, No rhonchi, No wheeze, No rales Cardiovascular: Regular rate, Regular Rhythm Psych/Mental Status: Normal Affect, Appropriate, Alert and oriented to time, place, person, mood and affect Assessment/Plan The patient appears to be tolerating hyperbaric oxygen therapy well, which will be continued as per the patient's medical plan.
[2018-06-17 13:11] VITALS: BP 141/86; BP 152/93; PULSE 111; PULSE 80; RESP 16; RESP 18; TEMP 36.6
--- NOTE | 2018-06-17 19:37 | PCM.HBO.PN ---
History of Present Illness Date of Service: 06/17/18 Presenting Chief Complaint: Soft tissue radiation necrosis left breast and nonhealing mastectomy ulcer left breast. VARINDER LACEY is a 33 year old currently undergoing hyperbaric oxygen therapy for soft tissue radiation necrosis left breast and nonhealing mastectomy ulcer left breast. Progress: The patient appears to be tolerating hyperbaric oxygen therapy well. Today's session represents the 7th HBO treatment. Tolerance of hyperbaric oxygen therapy: Hyperbaric oxygen therapy was administered as per the facility's protocol. Patient tolerated hyperbaric oxygen therapy well, without complaints or complications. Upon emergence from the hyperbaric chamber, the patient's vital signs remained stable. Patient was discharged in good condition. Past Medical History Chronic Problems (Last Reviewed 06/13/18 @ 09:12 by Mile Healy) Anemia (Chronic) Intermittent epigastric abdominal pain (Chronic) Personal history of malignant neoplasm of breast (Chronic) Cancer of left female breast (Chronic) Fatty liver (Chronic) STEVE (obstructive sleep apnea) (Chronic) Chronic back pain (Chronic) Hypothyroidism (Chronic) Narcolepsy (Chronic) Anxiety and depression (Chronic) Allergies/Adverse Reactions: Allergies hydromorphone [From Dilaudid] Allergy (Severe, Verified 06/13/18 09:14) Laryngospasms morphine Allergy (Severe, Verified 06/13/18 09:14) chest tightening TAPE Adverse Reaction (Mild, Uncoded 06/13/18 08:58) Other Home Medications: Ambulatory Orders Medication Instructions Recorded Albuterol Aerosols [Ventolin 2.5 mg INHALATION Q2H PRN PRN 01/17/18 Aerosols] vial.neb. Silver/Hydrocolloid Dressing 1 ea TP .QDAILY #30 bandage 01/17/18 [Aquacel-Ag W-Hydrofiber Dress] levothyroxine 150 mcg tablet 150 mcg PO DAILY@0600 #30 tab 01/27/18 liothyronine 5 mcg tablet 5 mcg PO DAILY #30 tab 01/27/18 Maternal Family History: Family History (Last Reviewed 06/13/18 @ 09:12 by Mile Healy) Mother Psychiatric disorder Thyroid disorder Father Hyperlipidemia Hypertension Father Heart disease Aunt Seizures Grandmother Cancer Colon cancer Grandfather Diabetes Heart disease Family History: - - Thyroid disease, psychiatric disorder. Paternal Family History: Family History (Last Reviewed 06/13/18 @ 09:12 by Mile Healy) Mother Psychiatric disorder Thyroid disorder Father Hyperlipidemia Hypertension Father Heart disease Aunt Seizures Grandmother Cancer Colon cancer Grandfather Diabetes Heart disease Family History: Heart Disease, Hypertension Smoking Status: Former smoker Alcohol: None Drugs: None Physical Exam Vital Signs Temp Pulse Resp BP 98 F 111 H 18 152/93 H 06/17/18 13:11 06/17/18 13:11 06/17/18 13:11 06/17/18 13:11 General: Alert, Oriented x3, Cooperative, No apparent distress Psych/Mental Status: Normal Affect, Appropriate Assessment/Plan Active Problems (Last Reviewed 06/13/18 @ 09:12 by Mile Healy) Open wound of left breast with complication (Acute) 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
--- NOTE | 2018-06-22 17:42 | PCM.HBO.PN ---
History of Present Illness Date of Service: 06/22/18 Presenting Chief Complaint: Soft tissue radiation necrosis left breast and nonhealing mastectomy ulcer left breast. VARINDER LACEY is a 33 year old currently undergoing hyperbaric oxygen therapy for soft tissue radiation necrosis left breast and nonhealing mastectomy ulcer left breast. Progress: The patient appears to be tolerating hyperbaric oxygen therapy well. Today's session represents the 10th HBO treatment. Tolerance of hyperbaric oxygen therapy: Hyperbaric oxygen therapy was administered as per the facility's protocol. Patient tolerated hyperbaric oxygen therapy well, without complaints or complications. Upon emergence from the hyperbaric chamber, the patient's vital signs remained stable. Patient was discharged in good condition. Past Medical History Chronic Problems (Last Reviewed 06/13/18 @ 09:12 by Mile Healy) Radiation skin ulcer of chest (Chronic) nonhealing painful radiation ulcer left breast mastectomy Anemia (Chronic) Intermittent epigastric abdominal pain (Chronic) Personal history of malignant neoplasm of breast (Chronic) Cancer of left female breast (Chronic) Fatty liver (Chronic) STEVE (obstructive sleep apnea) (Chronic) Chronic back pain (Chronic) Hypothyroidism (Chronic) Narcolepsy (Chronic) Anxiety and depression (Chronic) Allergies/Adverse Reactions: Allergies hydromorphone [From Dilaudid] Allergy (Severe, Verified 06/24/18 12:07) Laryngospasms morphine Allergy (Severe, Verified 06/24/18 12:07) chest tightening TAPE Adverse Reaction (Mild, Uncoded 06/24/18 12:07) Other Home Medications: Ambulatory Orders Medication Instructions Recorded Albuterol Aerosols [Ventolin 2.5 mg INHALATION Q2H PRN PRN 01/17/18 Aerosols] vial.neb. levothyroxine 150 mcg tablet 150 mcg PO DAILY@0600 #30 tab 01/27/18 Diazepam [Valium] 5 mg PO 4X/DAY PRN PRN #30 tab 06/26/18 Docusate Sodium [Colace] 100 mg PO BID #60 cap 06/26/18 Levothyroxine [Synthroid] 150 mcg PO DAILY@0600 tablet 06/26/18 Liothyronine Sodium [Cytomel] 5 mcg PO DAILY tablet 06/26/18 Ondansetron HCl [Zofran] 8 mg PO TID PRN PRN #30 tab 06/26/18 Oxycodone HCl/Acetaminophen 1 - 2 tab PO 4X/DAY PRN PRN 7 Days 06/26/18 [Percocet 5/325] #60 tab levoFLOXacin tablet [Levaquin 500 mg PO DAILY #14 tab 06/26/18 tablet] proMETHazine tablet [Phenergan 25 mg PO 4X/DAY PRN PRN #30 tab 06/26/18 tablet] oxycodone-acetaminophen 5 mg-325 1 tab PO 4X/DAY PRN #40 tab 07/01/18 mg tablet Maternal Family History: Family History (Last Reviewed 06/13/18 @ 09:12 by Mile Healy) Mother Psychiatric disorder Thyroid disorder Father Hyperlipidemia Hypertension Father Heart disease Aunt Seizures Grandmother Cancer Colon cancer Grandfather Diabetes Heart disease Family History: - - Thyroid disease, psychiatric disorder. Paternal Family History: Family History (Last Reviewed 06/13/18 @ 09:12 by Mile Healy) Mother Psychiatric disorder Thyroid disorder Father Hyperlipidemia Hypertension Father Heart disease Aunt Seizures Grandmother Cancer Colon cancer Grandfather Diabetes Heart disease Family History: Heart Disease, Hypertension Smoking Status: Former smoker Alcohol: None Drugs: None Physical Exam Vital Signs Temp Pulse Resp BP 98 F 111 H 18 152/93 H 06/17/18 13:11 06/17/18 13:11 06/17/18 13:11 06/17/18 13:11
== END 2018-06-17 23:59 ==
LOC: WC 13:00
PROVIDERS: Family Provider Family Medicine; PCP Family Medicine; Visit Provider Surgery
DX: L59.8 Other specified disorders of the skin and subcutaneous tissue related to radiation (principal); Y84.2 Radiological procedure and radiotherapy as the cause of abnormal reaction of the patient, or of later complication, without mention of misadventure at the time of the procedure; Z85.3 Personal history of malignant neoplasm of breast; G47.33 Obstructive sleep apnea (adult) (pediatric); Z79.899 Other long term (current) drug therapy; E03.9 Hypothyroidism, unspecified; Z87.891 Personal history of nicotine dependence; L90.5 Scar conditions and fibrosis of skin; L98.492 Non-pressure chronic ulcer of skin of other sites with fat layer exposed
CPT/HCPCS: 11042; 99183; G0277

== ENCOUNTER 2018-06-25 11:48 | Observation (INO) | payer BC, OTHER, SELFPAY ==
[2017-09-29 13:07] VITALS: BMI 36.4
--- NOTE | 2018-06-13 23:53 | PCM.HP.BLA ---
History and Physical Date of Admission: 06/14/18 HISTORY OF PRESENT ILLNESS 33 year old woman presents with left breast cancer that necessitated initially a lumpectomy and then later on a completion mastectomy. She had chemotherapy and radiation therapy postop. The completion mastectomy was not closed because it had already been radiated. Healing was slow with Silver dressing changes and the VAC and antibiotics. The wound almost healed but there remained a smaller residual wound. [facility] The wound had been improving with decreased size, but she was having persistent pain in her left mastectomy wound. She has just started HBO treatments and will continue them after her surgery. At the time of her completion mastectomy, wound cultures were obtained. They showed Acinetobacter radioresistens and MRSE. She was treated with IV Ceftriaxone and tolerated the antibiotics. She presents for further evaluation and treatment. 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 Pneumonia STEVE Chronic back pain Nonhealing post-lumpectomy seroma ulcer left lateral breast Chemotherapy induced neutropenia PAST SURGICAL HISTORY: Nenzel teeth 2003 all 4 [place] Wart 2008 Partial Mastectomy 04/06/17 - getting chemotherapy and will follow with radiation therapy Port Placement 05/03 Hospital-Febrile Neutropenia discharged 07/14/17 Occasional psychiatric hospitalized [id number] surgical preparation left lateral breast with incision and drainage and excision nonhealing post-lumpectomy seroma ulcer with 9 cm complex secondary wound closure - 08/05/17 Revision left breast reconstruction with excision painful infected lateral radiation lumpectomy scar contour deformity with completion mastectomy - 01/04/18 MEDICATIONS Ventolin. Levothyroxine. Liothyronine. ALLERGIES Dilaudid. Morphine. Tape. FAMILY HISTORY: Mother (biol.) - Has Family History of Depression Mother (biol.) - Has Family History of Thyroid Disorder Mother (biol.) - Has Family History of Psychiatric Care Father (biol.) - Has Family History of Hypertension Father (biol.) - Has Family History of High Cholesterol Aunt - Has Family History of Seizures PGM - Has Family History of Other Cancer PGF - Has Family History of Diabetes PGF - Has Family History of Heart Disease PGM - Has Family History of Colon Cancer SOCIAL HISTORY: Drug Use - no Patient is a former smoker. Patient does not drink alcohol. REVIEW OF SYSTEMS General - Denies fever. Has some weight loss and fatigue. Eyes -Denies: Pain HEENT - Denies: Nasal Congestion, Sore Throat Cardiovascular - Denies Chest Pain. Has fatigue. Denies shortness of breath with exertion. Respiratory - patient is a former smoker.. Denies: Cough, Shortness of Breath Gastrointestinal - Has Constipation, Diarrhea. Denies: Nausea, Vomiting Genitourinary - Denies: Frequency, Hematuria Musculoskeletal - Reports: Back Pain, - - has left lateral rib pain. Denies: Hand Pain, Leg Pain, Muscle pain, Neck Pain Skin - Has lumpectomy scar left lateral breast with pain. Pain also radiates laterally onto left lateral rib pain and axillary rib pain. Neuro - Has Headaches Psych - Has Anxiety, Depression Endocrine - Denies Polydipsia, Polyuria Hematologic - Denies Easy Bruising, Hx of blood clot PHYSICAL EXAMINATION General - Alert and oriented. Her bra size is D-DD. HEENT - PERRLA, EOMI Neck - Supple and nontender. No cervical adenopathy. Chest wall - There is tenderness to palpation in the left lateral chest wall over the ribs and extending onto the axillary area. No fluctuance or purulent drainage. Breasts - There is a left lateral breast scar from lumpectomy in 04/03. There is an indentation deformity. Very tender to palpation. The left breast is tender to palpation mostly laterally. No redness. Increased swelling and edema especially around the nipple areolar complex area. No fluctuance. The right breast is a little larger. Slight Stage II ptosis. Lungs - Clear to auscultation Heart - Regular rate, Regular Rhythm Abdomen - Soft, Non-Distended Extremities - No clubbing, No cyanosis, No edema, Peripheral Pulses Normal Lymphatic - no axillary adenopathy. Neuro - Cranial nerves II-XII grossly intact Psych - Normal Affect, Appropriate ASSESSMENT 1. Left breast cancer. 2. 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 3. Disproportion reconstructed left breast. 4. Deformity reconstructed left breast with excess painful mastectomy skin scar contour deformity with associated radiation ulcer. 5. Post-mastectomy painful indentation scar contour deformity left lateral breast. 6. s/p lumpectomy left breast with chemotherapy and radiation therapy. 7. s/p completion mastectomy left breast. 8. Late effect radiation left breast. 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 She has persistent pain in her nonhealing radiation ulcer with associated painful indentation scar contour deformity and excess painful mastectomy skin scar contour deformity. To improve her painful symptomatology, it was recommended to the patient to proceed with revision reconstructed left breast with excision painful nonhealing radiation ulcer and painful indentation scar contour deformity and excess painful mastectomy skin scar contour deformity. Will send tissue to Pathology for analysis to rule out carcinoma. Will also send tissue to Microbiology for culture. A positive culture will necessitate antibiotic therapy. To minimize seroma formation postop, I will place a drain. I will also spray Pola absorbable hemostat into the ulcer to minimize seroma formation. After surgery, she will continue her HBO treatments. She will be maintained on antibiotics at least until the drains are removed. Will wear a compression TABITHA wrap on her chest wall to minimize seroma as well. Surgery will be done under general anesthesia with a surgical observation overnight stay in the hospital. Patient was informed of the risks and complications of the procedure including alternatives to surgery. These were discussed with the patient personally. Patient voices understanding and wishes to proceed.
[2018-06-24] VITALS (18 sets, daily range): BP systolic 111–156; BP diastolic 68–117; PULSE 71–107; RESP 14–19; TEMP 35.9–37.5; O2SAT 96–100; BMI 32.5
[2018-06-24 12:02] LABS: Internal QC Validated? YES +Cl - CLEAR BKGD
[2018-06-24 12:06] LABS: Pregnancy, Urine Negative Negative
[2018-06-24] MEDS: levoFLOXacin IV 500 MG/100 ML BAG 100 MG IV (12:43)
--- NOTE | 2018-06-24 13:15 | BREAST_PTH ---
PATIENT: VARINDER LACEY LOC: [facility]2 U#:[id number] AGE/SX: 33/F [place] [facility] [id number] RE06/25/[address]: Dr. Jose Robertson MD : [id number] BED: 1 DIS: 06/26/2018 SPEC #: [id number] RECD: 06/27/18 10:16 STATUS: REGGIE KARLIE #: [id number] GURU: 06/24/18 13:[address]: Jose Robertson DEPT: SURGICAL PATHOLOGY RECD BY: Chad Lopes ENTERED: 06/27/18 11:04 SP TYPE: BREAST OTHR DR: MD Dr. Albert Hurley MD Dr. Ramnath S Ramanathan, MD Tissues: Left breast, NOS Procedures: Surgery Specimen Level V HEADER OPERATION: Reconstructed left breast with excision painful nonhealing radiation ulcer PRE-OP DIAGNOSIS: Left breast cancer; nonhealing painful radiation ulcer, left breast mastectomy; disproportion reconstructed left breast; deformity reconstructed left breast with excess painful mastectomy skin scar, contour deformity with associated radiation ulcer; post-mastectomy painful indentation scar contour deformity, left lateral breast; status post lumpectomy left breast with chemotherapy and radiation therapy; status post completion mastectomy left breast; late effect radiation left breast TISSUE SUBMITTED: Left breast nonhealing radiation ulcer and excess mastectomy skin contour deformity tissue MICROSCOPIC DIAGNOSIS Left breast nonhealing radiation ulcer and excess mastectomy skin contour deformity tissue: Pieces of skin with underlying adipose tissue and skeletal muscle tissue with focal fat necrosis, chronic inflammation and foreign body giant cell reaction. John 06/28/18 MICROSCOPIC DESCRIPTION Slides are reviewed. GROSS DESCRIPTION Received in fixative is one container labeled with the patient's name and designated left breast nonhealing radiation ulcer and excess mastectomy skin contour deformity tissue. The specimen consists of multiple pieces of skin and yellow adipose tissue that in aggregate measure 18 x 10 x 5 cm. The deep margin also shows focal area of skeletal muscle tissue. No mass lesion is identified. Stamp Collector sections are submitted in six cassettes. / John 06/27/18 TC:5 CPT: 03906
--- NOTE | 2018-06-24 16:23 | PCM.IMDPSTOP ---
Immediate Post-Op Note Date of Procedure: 06/24/18 Primary Surgeon/Physician: Jose Robertson information clerk cashier: Lois Diaz. Pre-Operative Diagnosis: 1. Left breast cancer. 2. 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 3. Disproportion reconstructed left breast. 4. Deformity reconstructed left breast with excess painful mastectomy skin scar contour deformity with associated radiation ulcer. 5. Post-mastectomy painful indentation scar contour deformity left lateral breast. 6. s/p lumpectomy left breast with chemotherapy and radiation therapy. 7. s/p completion mastectomy left breast. 8. Late effect radiation left breast. Post-Operative Diagnosis: Same. Surgery/Procedure Performed:: Revision reconstructed left breast with excision painful nonhealing radiation ulcer and excision painful excess mastectomy skin scar contour deformity. Description of Surgical Findings:: 33 year old woman presents with left breast cancer that necessitated initially a lumpectomy and then later on a completion mastectomy. She had chemotherapy and radiation therapy postop. The completion mastectomy was not closed because it had already been radiated. Healing was slow with Silver dressing changes and the VAC and antibiotics. The wound almost healed but there remained a smaller residual wound. [facility] The wound had been improving with decreased size, but she was having persistent pain in her left mastectomy wound. She has just started HBO treatments and will continue them after her surgery. At the time of her completion mastectomy, wound cultures were obtained. They showed Acinetobacter radioresistens and MRSE. She was treated with IV Ceftriaxone and tolerated the antibiotics. Today the patient underwent revision reconstructed left breast with excision painful nonhealing radiation ulcer and excision painful excess mastectomy skin scar contour deformity. I used Pola absorbable hemostat, (I used 2 vials). Reference Number - [id number]. Lot Number - [id number]. Expiration - April 14, 2023. Estimated Blood Loss: 150 ml. Specimen's removed: Excess mastectomy skin scar contour deformity and painful radiation ulcer to Pathology and Microbiology. Drains: Ricki. Type of Anesthesia:: General - Admit VTE Documentation VTE Present on Admission: No VTE Mechan Device Prophylaxis: SCD's VTE Pharm Prophylaxis ordered?: Yes
[2018-06-24] MEDS: diazePAM 5 MG Tablet PO (17:26)
--- NOTE | 2018-06-24 18:15 | PCM.OPRPT ---
Report of Operation Date of Procedure: 06/24/18 Pre-Operative Diagnosis: 1. Left breast cancer. 2. 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 3. Disproportion reconstructed left breast. 4. Deformity reconstructed left breast with excess painful mastectomy skin scar contour deformity with associated radiation ulcer. 5. Post-mastectomy painful indentation scar contour deformity left lateral breast. 6. s/p lumpectomy left breast with chemotherapy and radiation therapy. 7. s/p completion mastectomy left breast. 8. Late effect radiation left breast. Post-Operative Diagnosis: Same. Surgery/Procedure Performed:: Revision reconstructed left breast with excision painful nonhealing radiation ulcer and excision painful excess mastectomy skin scar contour deformity. Description of Surgical Findings:: 33 year old woman presents with left breast cancer that necessitated initially a lumpectomy and then later on a completion mastectomy. She had chemotherapy and radiation therapy postop. The completion mastectomy was not closed because it had already been radiated. Healing was slow with Silver dressing changes and the VAC and antibiotics. The wound almost healed but there remained a smaller residual wound. [facility]. The wound had been improving with decreased size, but she was having persistent pain in her left mastectomy wound. She has just started HBO treatments and will continue them after her surgery. At the time of her completion mastectomy, wound cultures were obtained. They showed Acinetobacter radioresistens and MRSE. She was treated with IV Ceftriaxone and tolerated the antibiotics. Patient was informed of the risks and complications of the procedure including alternatives to surgery. These were discussed with the patient personally. Patient voices understanding and wishes to proceed. I used Pola absorbable hemostat, (I used 2 vials). Reference Number - [id number]. Lot Number - [id number]. Expiration - April 14, 2023. reverse logistics analyst: Lois Diaz. Type of Anesthesia:: General Specimen's removed: Excess mastectomy skin scar contour deformity and painful radiation ulcer to Pathology and Microbiology. Drains: Ricki. Estimated Blood Loss (mL): 150 ml. Description of Procedure: Patient was seen in the preop area. She was placed in sitting position and markings were made. I wanted to have her lift her left arm up as I decided how much skin to excise. I told her I would be a little more conservative with the excision because of her history of radiation which can aggravate skin tightness postop. Patient was taken to OR in supine position and was placed under general anesthesia. The left breast was prepped and draped in the usual fashion. SCD's were placed for DVT prophylaxis. Perioperative antibiotics were given intravenously. Using xylocaine with epinephrine, the left breast was infiltrated. After waiting 5 minutes for the anesthetic to take effect, I excised the nonhealing radiation ulcer on the lateral aspect and the excess painful mastectomy skin scar contour deformity on the medial aspect down through the subcutaneous tissue until the underlying muscle was seen. There was a lot of dense fibrotic scar tissue on the muscle which was excised to symptomatic relief. The extra bruising on the muscle from the excision of this fibrotic scar tissue will cause me to write for extra Valium for spasm during the postop period. There was a palpable area of firmness on the medial aspect of the breast mastectomy scar. That was dissected free and excised off the chest wall muscle. It appeared to be consistent with fat necrosis. It will be sent with the rest of the breast tissue to Pathology. Some of the tissue was sent to Microbiology for culture. A positive culture will necessitate antibiotic therapy. The rest of the tissue was sent to Pathology for analysis to rule out carcinoma. Hemostasis was obtained with electrocautery. The wound was irrigated with saline. A size 15 Ricki drain was placed through separate stab incision inferiorly and secured to the skin with 3-0 Nylon interrupted suture. I then sprayed Pola absorbable hemostat into the left breast mastectomy wound to minimize seroma postoperatively. I used 2 vials of Pola. I then closed the left breast mastectomy wound with 3-0 Monocryl figure of eight interrupted suture for the deep subcutaneous tissue and fascia. The deep dermis and subcutaneous tissue was approximated with 3-0 Monocryl interrupted sutures. The skin was approximated with 3-0 V-lock unidirectional barbed running subcuticular suture. This was followed by Histoacryl skin tissue adhesive followed by Kerlix gauze abd ABD pads as a compression dressing. This was followed by a compression TABITHA wrap. Patient tolerated the procedure well and was sent to PACU in satisfactory condition. Patient will be sent upstairs for continued postop care. Grafts/Implants Used: None. - Complications None. - Admit VTE Documentation VTE Present on Admission: No VTE Mechan Device Prophylaxis: SCD's VTE Pharm Prophylaxis ordered?: Yes Code Visit Surgery Charges CPT - 66530 ICD-10 - C50.912, L98.499, Z90.12, N65.1, N65.0, T66.xxxS, N64.4
[2018-06-24 21:31] LABS: Bedside Glucose 145 mg/dL (70-110)
--- NOTE | 2018-06-24 21:54 | PCM.PN.BLA ---
Progress Note Called to respond to stroke code. Pt was alert but unable to determine if pt knows time / place / name given expressive aphasia. She was able to move all extremities. Sensation intact. Strength was 4/5 in all 4 extremities. No motor drift, able to track, no facial palsy, follow commands. Expressive global aphasia noted. Will get CT brain and CTA head and neck. MRI also pending. Vital wnl. Blood glucose also wnl. Will also start ASA if negative. Started statin. No tPA given surgery done today. Discussed with neurology. Will transfer if any acute finding.
[2018-06-24] MEDS: 0.9% NaCl Peripheral Flush Adult/Peds IV (22:34)
--- NOTE | 2018-06-24 22:49 | NURSING ---
Dr. Robertson updated on pt condition and transfer to ICU. No new orders received at this time.
[2018-06-25] VITALS (20 sets, daily range): BP systolic 97–137; BP diastolic 55–88; PULSE 52–93; RESP 14–21; TEMP 36.6–36.9; O2SAT 97–100
[2018-06-25] MEDS: Aspirin 300 MG Suppository RECTAL (00:52)
[2018-06-25] MEDS: Ketorolac 30 MG/ML Syringe IV (00:53)
[2018-06-25] MEDS: 0.9% NaCl Peripheral Flush Adult/Peds IV (00:53)
--- NOTE | 2018-06-25 01:29 | NURSING ---
0000 NIH done at 0030 due to patient being in MRI.
[2018-06-25 04:29] LABS: Hematocrit 30.1 % (37-47); Hemoglobin 10.3 g/dl (12.0-15.0); Mean Corp Hgb Conc 34.2 g/gl (32-36); Mean Corpuscular Hgb 30.7 pg (27.0-32.0); Mean Corpuscular Volume 89.9 fL (81-99); Mean Platelet Vol. 8.1 fl (6.2-12.0); Platelet Count 149 K/mm3 (150-450); RBC Distribution Width CV 13.3 % (11.6-14.6); RBC Distribution Width SD 42.6 fl (35.1-43.9); Red Blood Count 3.35 M/mm3 (4.2-5.4); White Blood Count 7.7 K/mm3 (4.4-11.0)
[2018-06-25 04:30] LABS: Scan Indicated on CBC? Y/N NO
[2018-06-25 04:50] LABS: Anion Gap 7 (5-15); BUN 15 mg/dL (7-18); BUN/Creat Ratio 15.3 RATIO (10-20); Calcium,Total 8.1 mg/dL (8.5-10.1); Chloride 109 mmol/L (98-107); Cholesterol 123 mg/dL (200); Creatinine, Serum 0.98 mg/dL (0.55-1.02); EST Glomerular Filtration Rate 69 mL/min (>60); Est Glom Filt Rate - Afr Amer 84 mL/min (>60); Glucose 131 mg/dL (74-106); High Density Lipoprotein 52 mg/dL; Potassium 4.4 mmol/L (3.5-5.1); Prealbumin 21.1 mg/dL (20.0-40.0); Sodium Level 142 mmol/L (136-145); Triglycerides 82 mg/dL; Very Low Density Lipoprotein 16 mg/dL (5-40)
[2018-06-25] MEDS: Enoxaparin 30 MG/0.3 ML Syringe SC (06:22)
[2018-06-25] MEDS: levoFLOXacin IV 500 MG/100 ML BAG 100 MG IV (10:47)
[2018-06-25] MEDS: oxyCODONE 5 MG Tablet 10 MG PO ×3 (10:54→20:54)
--- NOTE | 2018-06-25 11:16 | OP.PCM_ITS ---
Report of Operation Date of Procedure: 06/24/18 Pre-Operative Diagnosis: 1. Left breast cancer. 2. 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 3. Disproportion reconstructed left breast. 4. Deformity reconstructed left breast with excess painful mastectomy skin scar contour deformity with associated radiation ulcer. 5. Post- mastectomy painful indentation scar contour deformity left lateral breast. 6. s/p lumpectomy left breast with chemotherapy and radiation therapy. 7. s/p completion mastectomy left breast. 8. Late effect radiation left breast. Post-Operative Diagnosis: Same. Surgery/Procedure Performed:: Revision reconstructed left breast with excision painful nonhealing radiation ulcer and excision painful excess mastectomy skin scar contour deformity. Description of Surgical Findings:: 33 year old woman presents with left breast cancer that necessitated initially a lumpectomy and then later on a completion mastectomy. She had chemotherapy and radiation therapy postop. The completion mastectomy was not closed because it had already been radiated. Healing was slow with Silver dressing changes and the VAC and antibiotics. The wound almost healed but there remained a smaller residual wound. [facility] The wound had been improving with decreased size , but she was having persistent pain in her left mastectomy wound. She has just started HBO treatments and will continue them after her surgery. At the time of her completion mastectomy, wound cultures were obtained. They showed Acinetobacter radioresistens and MRSE. She was treated with IV Ceftriaxone and tolerated the antibiotics. Patient was informed of the risks and complications of the procedure including alternatives to surgery. These were discussed with the patient personally. Patient voices understanding and wishes to proceed. I used Pola absorbable hemostat, (I used 2 vials). Reference Number - [id number]. Lot Number - [id number]. Expiration - April 14, 2023. wash and greaser: Lois Diaz. Type of Anesthesia:: General Specimen's removed: Excess mastectomy skin scar contour deformity and painful radiation ulcer to Pathology and Microbiology. Drains: Ricki. Estimated Blood Loss (mL): 150 ml. Description of Procedure: Patient was seen in the preop area. She was placed in sitting position and markings were made. I wanted to have her lift her left arm up as I decided how much skin to excise. I told her I would be a little more conservative with the excision because of her history of radiation which can aggravate skin tightness postop. Patient was taken to OR in supine position and was placed under general anesthesia. The left breast was prepped and draped in the usual fashion. SCD's were placed for DVT prophylaxis. Perioperative antibiotics were given intravenously. Using xylocaine with epinephrine, the left breast was infiltrated. After waiting 5 minutes for the anesthetic to take effect, I excised the nonhealing radiation ulcer on the lateral aspect and the excess painful mastectomy skin scar contour deformity on the medial aspect down through the subcutaneous tissue until the underlying muscle was seen. There was a lot of dense fibrotic scar tissue on the muscle which was excised to symptomatic relief. The extra bruising on the muscle from the excision of this fibrotic scar tissue will cause me to write for extra Valium for spasm during the postop period. There was a palpable area of firmness on the medial aspect of the breast mastectomy scar. That was dissected free and excised off the chest wall muscle. It appeared to be consistent with fat necrosis. It will be sent with the rest of the breast tissue to Pathology. Some of the tissue was sent to Microbiology for culture. A positive culture will necessitate antibiotic therapy. The rest of the tissue was sent to Pathology for analysis to rule out carcinoma. Hemostasis was obtained with electrocautery. The wound was irrigated with saline. A size 15 Ricki drain was placed through separate stab incision inferiorly and secured to the skin with 3-0 Nylon interrupted suture. I then sprayed Pola absorbable hemostat into the left breast mastectomy wound to minimize seroma postoperatively. I used 2 vials of Pola. I then closed the left breast mastectomy wound with 3-0 Monocryl figure of eight interrupted suture for the deep subcutaneous tissue and fascia. The deep dermis and subcutaneous tissue was approximated with 3-0 Monocryl interrupted sutures. The skin was approximated with 3-0 V-lock unidirectional barbed running subcuticular suture. This was followed by Histoacryl skin tissue adhesive followed by Kerlix gauze abd ABD pads as a compression dressing. This was followed by a compression TABITHA wrap. Patient tolerated the procedure well and was sent to PACU in satisfactory condition. Patient will be sent upstairs for continued postop care. Grafts/Implants Used: None. - Complications None. - Admit VTE Documentation VTE Present on Admission: No VTE Mechan Device Prophylaxis: SCD's VTE Pharm Prophylaxis ordered?: Yes Code Visit Surgery Charges CPT - 16901 ICD-10 - C50.912, L98.499, Z90.12, N65.1, N65.0, T66.xxxS , N64.4
--- NOTE | 2018-06-25 11:50 | PCM.CONS.GEN ---
Problem List (1) Transient global amnesia Status: Acute (2) Left ovarian cyst Status: Acute Comment: ca125. repeat ultrasound ordered (3) Encounter for preconception consultation Status: Acute (4) Anemia Status: Chronic (5) GERD (gastroesophageal reflux disease) Status: Acute Qualifiers: Esophagitis presence: without esophagitis Qualified Code(s): K21.9 - Gastro-esophageal reflux disease without esophagitis (6) Family history of colon cancer in father Status: Acute (7) Open wound of left breast with complication Status: Acute (8) Acquired absence of left breast and nipple Status: Acute (9) Wound infection Status: Acute (10) Intermittent epigastric abdominal pain Status: Chronic (11) Late effect of radiation Status: Acute Comment: late effect radiation left breast (12) Medication management Status: Acute (13) Pain of left breast Status: Acute (14) Other specified complications of surgical and medical care, not elsewhere classified, subsequent encounter Status: Acute Comment: post-lumpectomy seroma ulcer left lateral breast (15) Disproportion of reconstructed breast Status: Acute Comment: left breast (16) Deformity of reconstructed breast Status: Acute Comment: lateral deformity reconstructed left breast (17) Personal history of malignant neoplasm of breast Status: Chronic (18) Cancer of left female breast Status: Chronic Qualifiers: Estrogen receptor status: positive (19) Fatty liver Status: Chronic (20) STEVE (obstructive sleep apnea) Status: Chronic (21) Chronic back pain Status: Chronic Qualifiers: Back pain location: back pain in unspecified location Back pain laterality: unspecified Qualified Code(s): M54.9 - Dorsalgia, unspecified; G89.29 - Other chronic pain (22) Hypothyroidism Status: Chronic Qualifiers: Hypothyroidism type: unspecified Qualified Code(s): E03.9 - Hypothyroidism, unspecified (23) Narcolepsy Status: Chronic (24) Anxiety and depression Status: Chronic (25) Fever Status: Acute Qualifiers: Fever type: unspecified Qualified Code(s): R50.9 - Fever, unspecified (26) Febrile neutropenia Status: Acute Reason for Consult Date of Consultation: 06/25/18 Reason for Consultation: transient episode of expressive aphasia History of Present Illness: The patient is a 33 year old F with history of left breast cancer status post lumpectomy, then completion mastectomy followed by wound infection and debridement was admitted this time by Dr. Robertson for excision of excess mastectomy skin scar with contour deformity and excision of nonhealing radiation ulcer on 06/24/2018. Yesterday night, stroke alert was called and patient was noticed to have blank look, and mild to moderate aphasia. As per the 19 hospitalist, she had expressive global aphasia. Subsequently she had CT angiogram of head and neck which reported normal. Blood glucose was found normal. NIH stroke scale was done and first was found 1 due to mild to moderate aphasia but later on subsequently was 0 on multiple nursing assessment. MRI brain was done which did not show any evidence of infarct, hemorrhage or metastatic disease. On further history, she said she had this problem since her age of young adolescent after she had concussion injury and she has detailed workup as an outpatient including 24 hour video EEG monitoring but everything was found normal. She does not think she has a history of seizure. On her home medication, she is not on antiepileptic medication Past Medical History Past Medical History (Chronic Problems): Chronic Problems (Last Reviewed 06/13/18 @ 09:12 by Mile Healy) Anemia (Chronic) Intermittent epigastric abdominal pain (Chronic) Personal history of malignant neoplasm of breast (Chronic) Cancer of left female breast (Chronic) Fatty liver (Chronic) STEVE (obstructive sleep apnea) (Chronic) Chronic back pain (Chronic) Hypothyroidism (Chronic) Narcolepsy (Chronic) Anxiety and depression (Chronic) Medical History: Medical History (Last Reviewed 06/13/18 @ 09:12 by Mile Healy) Anxiety F41.9 Asthma J45.909 BLADDER/URINARY TRACT INFECTION Breast cancer C50.919 Carpal tunnel syndrome G56.00 Depression F32.9 Headache R51 Hives L50.9 Immunodeficiency D84.9 NEUROPATHY AFTER ARM SURGERY NON HEALING POST- LUMPECTOMY SEROMA ULCER LEFT BREAST LEFT LATERAL BREAST Neutropenia D70.9 Pneumonia J18.9 Polycystic ovary E28.2 Psychiatric disorder F99 Sleep apnea G47.30 Thyroid disease E07.9 Vitamin D deficiency E55.9 med port placement Allergies hydromorphone [From Dilaudid] Allergy (Severe, Verified 06/24/18 12:07) Laryngospasms morphine Allergy (Severe, Verified 06/24/18 12:07) chest tightening TAPE Adverse Reaction (Mild, Uncoded 06/24/18 12:07) Other Home Medications: Ambulatory Orders Medication Instructions Recorded Albuterol Aerosols [Ventolin 2.5 mg INHALATION Q2H PRN PRN 01/17/18 Aerosols] vial.neb. Silver/Hydrocolloid Dressing 1 ea TP .QDAILY #30 bandage 01/17/18 [Aquacel-Ag W-Hydrofiber Dress] levothyroxine 150 mcg tablet 150 mcg PO DAILY@0600 #30 tab 01/27/18 liothyronine 5 mcg tablet 5 mcg PO DAILY #30 tab 01/27/18 Surgical History: Surgical History (Last Reviewed 06/13/18 @ 09:12 by Mile Healy) H/O total mastectomy of left breast Z90.12 HOSPITAL FEBRILE NEUTROPENIA DISCHARGED 07/14/2017 History of lumpectomy Z98.890 History of partial mastectomy of left breast Onset Date: 03/2017 Z98.890, Z90.12 PORT PLACEMENT Onset Date: 04/2017 Plantar wart Onset Date: ~2007 B07.0 SURGICAL PREPARATION LEFT LATERAL BREAST WITH INCISION AND DRAINAGE AND EXCISION NON HEALING SURGICAL LUMPECTOMY SEROMA ULCER WITH 9 CM COMPLEX SECONDARY WOUND CLOSURE 08/05/2017 [place] teeth extracted K08.499 Surgical History: - - [place] teeth, [place] Wart, Partial Mastectomy 04/06/17, Port Placement, left lateral breast with incision and drainage and excision nonhealing post-lumpectomy seroma ulcer with 9 cm complex secondary wound closure, recent Revision left breast reconstruction with excision painful infected lateral radiation lumpectomy scar contour deformity with completion mastectomy. Psychiatric History: Anxiety, Depression PIGMENT PROCESSOR History: No pertinent PIGMENT PROCESSOR history Smoking Status: Former smoker - *Family History Maternal Family History: Family History (Last Reviewed 06/13/18 @ 09:12 by Mile Healy) Mother Psychiatric disorder Thyroid disorder Father Hyperlipidemia Hypertension Father Heart disease Aunt Seizures Grandmother Cancer Colon cancer Grandfather Diabetes Heart disease History Items: - - Thyroid disease, psychiatric disorder. Paternal Family History: Family History (Last Reviewed 06/13/18 @ 09:12 by Mile Healy) Mother Psychiatric disorder Thyroid disorder Father Hyperlipidemia Hypertension Father Heart disease Aunt Seizures Grandmother Cancer Colon cancer Grandfather Diabetes Heart disease History Items: Heart Disease, Hypertension Review of Systems Constitutional: Denies: Chills, Fever, Weight Change HEENT: Denies: Head Aches, Sinus Congestion, Sinus Drainage Cardiovascular: Denies: Chest Pain, Palpitations Respiratory: Denies: Cough, Shortness of breath at rest, Sputum production Gastrointestinal: Denies: Abdominal Pain, Nausea, Vomiting Genitourinary: Denies: Dysuria Musculoskeletal: Denies: Joint Pain, Joint Tenderness Skin: Reports: Wounds - Surgical wound on left breast. Denies: Rash Neurological: Denies: Numbness, Tingling, Focal weakness Psychiatric: Denies: Anxiety, Depression, Homicidal Ideations, Suicidal Ideations Hematologic/ Lymphatic: Denies: Easy Bruising, Easy Bleeding Patient Problems: Active and Suspected Problems (Last Reviewed 06/13/18 @ 09:12 by Mile Healy) Transient global amnesia (Acute) - Physical Exam General: Alert, Oriented x3, Cooperative HEENT: Atraumatic, PERRLA, EOMI, Normocephalic Neck: Supple, No JVD, Negative Carotid Bruits Lungs: Clear to auscultation, Normal air movement Cardiovascular: Regular rate, Regular Rhythm, Normal S1, Normal S2, No murmurs Abdomen: Bowel Sounds Present, Soft, Non Tender Extremities: No edema, Capillary Refill Less than 3 Seconds Skin: Ulcer/ Wound - Left breast surgical wound status post excision of excess mastectomy skin SCAR. Dressing is dry., - Musculoskeletal: No Tenderness to Palpation of Joints or Extremities, Arthritic Changes Neurological: Cranial nerves II-XII grossly intact, Neuro grossly intact Psych/Mental Status: Normal Affect, Appropriate Vital Signs Temp Pulse Resp BP Pulse Ox 97.9 F 53 L 15 97/55 L 100 06/25/18 04:01 06/25/18 07:00 06/25/18 06:01 06/25/18 06:01 06/25/18 06:01 Oxygen Flow Rate (L/min) 2 Oxygen Delivery Method Room Air Weight: 217 lb 6.012 oz Body Mass Index (BMI) 32.5 Finger Stick Blood Glucose 145 Intake and Output for Last 24 Hours 06/23/18 06/24/18 06/25/18 23:59 23:59 23:59 Intake Total 1700 / 1700 235.3 / 235.3 Output Total 765 / 765 Balance 1700 / 1700 -529.7 / -529.7 Microbiology Past 72 Hours 06/24/18 17:47 Wound Culture - Preliminary Tissue - Breast No growth-Final to follow Laboratory Tests Past 24 Hrs 09/05/0406/24/18 06/25/18 11:49 22:45 04:20 WBC 7.7 RBC 3.35 L Hgb 10.3 L Hct 30.1 L MCV 89.9 MCH 30.7 MCHC 34.2 RDW 13.3 RDW Differential 42.6 Plt Count 149 L MPV 8.1 Sodium Potassium Chloride Carbon Dioxide Anion Gap BUN Creatinine Estim Creat Clear Calc Est GFR (MDRD) Af Amer Est GFR (MDRD) Non-Af BUN/Creatinine Ratio Glucose Calcium Troponin I < 0.015 Prealbumin Triglycerides Cholesterol LDL Cholesterol VLDL Cholesterol HDL Cholesterol Urine Test Negative 06/25/18 04:20 WBC RBC Hgb Hct MCV MCH MCHC RDW RDW Differential Plt Count MPV Sodium 142 Potassium 4.4 Chloride 109 H Carbon Dioxide 26.0 Anion Gap 7 BUN 15 Creatinine 0.98 Estim Creat Clear Calc 81.60 Est GFR (MDRD) Af Amer 84 Est GFR (MDRD) Non-Af 69 BUN/Creatinine Ratio 15.3 Glucose 131 H Calcium 8.1 L Troponin I Prealbumin 21.1 Triglycerides 82 Cholesterol 123 LDL Cholesterol 55 VLDL Cholesterol 16 HDL Cholesterol 52 Urine Test POC Glucose 06/24/18 21:22 POC Glucose 145 H Assessment/Plan All Active Problems (Last Reviewed 06/13/18 @ 09:12 by Mile Healy) Transient global amnesia (Acute) Left ovarian cyst (Acute) Encounter for preconception consultation (Acute) GERD (gastroesophageal reflux disease) (Acute) Family history of colon cancer in father (Acute) Open wound of left breast with complication (Acute) Acquired absence of left breast and nipple (Acute) Wound infection (Acute) Late effect of radiation (Acute) Medication management (Acute) Pain of left breast (Acute) Other specified complications of surgical and medical care, not elsewhere classified, subsequent encounter (Acute) Disproportion of reconstructed breast (Acute) Deformity of reconstructed breast (Acute) Drug induced neutropenia (Resolved) Pancytopenia (Resolved) Fever (Acute) Febrile neutropenia (Acute) The patient is a 33 year old F with history of left breast cancer status post lumpectomy, then completion mastectomy followed by wound infection and debridement was admitted this time by Dr. Robertson for excision of excess mastectomy skin scar with contour deformity and excision of nonhealing radiation ulcer on 06/24/2018. Yesterday night, stroke alert was called and patient was noticed to have blank look, and mild to moderate aphasia. As per the 19 hospitalist, she had expressive global aphasia. Subsequently she had CT angiogram of head and neck which reported normal. Blood glucose was found normal. NIH stroke scale was done and first was found 1 due to mild to moderate aphasia but later on subsequently was 0 on multiple nursing assessment. MRI brain was done which did not show any evidence of infarct, hemorrhage or metastatic disease. On further history, she said she had this problem since her age of young adolescent after she had concussion injury and she has detailed workup as an outpatient including 24 hour video EEG monitoring but everything was found normal. She does not think she has a history of seizure. On her home medication, she is not on antiepileptic medication 1. Chronic transient global aphasia: This was a transient episode and she has since an early adolescent age after concussion. CT and MRI imaging test was normal as mentioned above. Discontinue NIH stroke scale. Consult neurology for further opinion regarding the differential diagnosis of the transient episode or need of outpatient epilepsy workup 2. Left breast cancer status post mastectomy, radiotherapy, radiotherapy with radiation scar SKIN ulcer and scar tissue status post excision: Patient is on Levaquin. Continue control. 3. Hypothyroidism, obstructive sleep apnea and mood disorder with depression and anxiety: Continue her home medication. On levothyroxine. 4. DVT prophylaxis: On Lovenox. Code Visit Inpatient E&M: 00997 Init Hosp L2
[2018-06-25] MEDS: Aspirin 81 MG TAB.CHEW PO (11:57)
--- NOTE | 2018-06-25 12:52 | PCM.PN.SRG ---
Patient Problems: Active and Suspected Problems (Last Reviewed 06/13/18 @ 09:12 by Mile Healy) Transient global amnesia (Acute) Subjective: Postop #1 Patient is resting comfortably. Above events noted from last night. - Physical Exam General: Alert, Oriented x3 HEENT: PERRLA, EOMI Oral: Moist Mucosa Neck: Supple Abdomen: Soft, Non-Distended Skin: Incision - left breast dressing is dry. Incision dry and intact. Neurological: Cranial nerves II-XII grossly intact Psych/Mental Status: Normal Affect, Appropriate Vital Signs Temp Pulse Resp BP Pulse Ox 97.9 F 53 L 15 97/55 L 100 06/25/18 04:01 06/25/18 07:00 06/25/18 06:01 06/25/18 06:01 06/25/18 06:01 Oxygen Flow Rate (L/min) 2 Oxygen Delivery Method Room Air Weight: 217 lb 6.012 oz Body Mass Index (BMI) 32.5 Finger Stick Blood Glucose 145 Intake and Output for Last 24 Hours 06/23/18 06/24/18 06/25/18 23:59 23:59 23:59 Intake Total 1700 / 1700 927.3 / 927.3 Output Total 765 / 765 Balance 1700 / 1700 162.3 / 162.3 Drainage 290 ml since surgery. Microbiology Past 72 Hours 06/24/18 17:47 Wound Culture - Preliminary Tissue - Breast No growth-Final to follow Laboratory Tests Past 24 Hrs 06/24/18 06/25/18 06/25/18 22:45 04:20 04:20 WBC 7.7 RBC 3.35 L Hgb 10.3 L Hct 30.1 L MCV 89.9 MCH 30.7 MCHC 34.2 RDW 13.3 RDW Differential 42.6 Plt Count 149 L MPV 8.1 Sodium 142 Potassium 4.4 Chloride 109 H Carbon Dioxide 26.0 Anion Gap 7 BUN 15 Creatinine 0.98 Estim Creat Clear Calc 81.60 Est GFR (MDRD) Af Amer 84 Est GFR (MDRD) Non-Af 69 BUN/Creatinine Ratio 15.3 Glucose 131 H Calcium 8.1 L Troponin I < 0.015 Prealbumin 21.1 Triglycerides 82 Cholesterol 123 LDL Cholesterol 55 VLDL Cholesterol 16 HDL Cholesterol 52 POC Glucose 06/24/18 21:22 POC Glucose 145 H Medical Necessity - Tobacco Use Smoking Status: Former smoker Assessment/Plan All Active Problems (Last Reviewed 06/13/18 @ 09:12 by Mile Healy) Transient global amnesia (Acute) Left ovarian cyst (Acute) Encounter for preconception consultation (Acute) GERD (gastroesophageal reflux disease) (Acute) Family history of colon cancer in father (Acute) Open wound of left breast with complication (Acute) Acquired absence of left breast and nipple (Acute) Wound infection (Acute) Late effect of radiation (Acute) Medication management (Acute) Pain of left breast (Acute) Other specified complications of surgical and medical care, not elsewhere classified, subsequent encounter (Acute) Disproportion of reconstructed breast (Acute) Deformity of reconstructed breast (Acute) Drug induced neutropenia (Resolved) Pancytopenia (Resolved) Fever (Acute) Febrile neutropenia (Acute) 1. Left breast cancer. 2. 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 3. Disproportion reconstructed left breast. 4. Deformity reconstructed left breast with excess painful mastectomy skin scar contour deformity with associated radiation ulcer. 5. Post-mastectomy painful indentation scar contour deformity left lateral breast. 6. s/p lumpectomy left breast with chemotherapy and radiation therapy. 7. s/p completion mastectomy left breast. 8. Late effect radiation left breast. 9. s/p revision reconstructed left breast with excision painful nonhealing radiation ulcer and excision painful excess mastectomy skin scar contour deformity. 10. Transient global amnesia. Patient is awake and alert. Above events noted from last night. CT and MRI were normal. Hospitalist management appreciated. Will transfer to med surg floor today. Will observe for another 24 hours. Will wean to po analgesia in preparation for discharge. Anticipate discharge tomorrow.
--- NOTE | 2018-06-25 15:14 | CON.PCM_ITS ---
Problem List (1) Speech disturbance Status: Acute Qualifiers: Speech disturbance type: unspecified speech disturbance Qualified Code(s): R47.9 - Unspecified speech disturbances Reason for Consult Date of Consultation: 06/25/18 Reason for Consultation: speech disturbance History of Present Illness: The patient is a 33 year old CF with PMH STEVE on CPAP, Narcolepsy, Anxiety/ depression, ?H/O Bipolar d/o, hypothyroidism, H/O Breast cancer s/p lumpectomy, mastectomy, chemotherapy, had left mastectomy on 06/24/18 and later that night had episode of speech disturbance where she was not able to get her words out, the event lasted for about 1-11/2 hour, after which she improved, per patient she was going to go the bathroom when she felt woozy and stumbled and was not able to get her words out, there was no focal deficits, patient denies any loss of awareness, witnessed seizures, tongue bite, urinary incontinence or post ictal state, per Dr. Taylor who called stroke alert for her symptoms, her vitals were normal and she was not given IVtpa since patient had mastectomy on the same day. Per patient she has been having these speech disturbances since the age 16, now the frequency has decreased, it has happened only twice this year and per patient used to happen more frequently in the past, in the past sometimes she would have speech disturbances where she would not be able to move her body but would be aware of the same, she has been diagnosed with Narcolepsy by Dr. Tadeo per patient. Per patient she had numerous MRI brain and EEGs normal in the past. During this admission following this episode MRI brain and CTA head/neck were reported to be normal. At present patient denies any MENEZES, speech disturbances, visual disturbances, focal motor weakness or sensory loss. Per patient she was diagnosed with bipolar d/o in the past and was on Lamictal for the same, but it was discontinued by her present psychiatrist last year around February 2017. [] Past Medical History Past Medical History (Chronic Problems): Chronic Problems (Last Reviewed 06/13/18 @ 09:12 by Mile Healy) Anemia (Chronic) Intermittent epigastric abdominal pain (Chronic) Personal history of malignant neoplasm of breast (Chronic) Cancer of left female breast (Chronic) Fatty liver (Chronic) STEVE (obstructive sleep apnea) (Chronic) Chronic back pain (Chronic) Hypothyroidism (Chronic) Narcolepsy (Chronic) Anxiety and depression (Chronic) Medical History: Medical History (Last Reviewed 06/13/18 @ 09:12 by Mile Healy) Anxiety F41.9 Asthma J45.909 BLADDER/URINARY TRACT INFECTION Breast cancer C50.919 Carpal tunnel syndrome G56.00 Depression F32.9 Headache R51 Hives L50.9 Immunodeficiency D84.9 NEUROPATHY AFTER ARM SURGERY NON HEALING POST- LUMPECTOMY SEROMA ULCER LEFT BREAST LEFT LATERAL BREAST Neutropenia D70.9 Pneumonia J18.9 Polycystic ovary E28.2 Psychiatric disorder F99 Sleep apnea G47.30 Thyroid disease E07.9 Vitamin D deficiency E55.9 med port placement Allergies hydromorphone [From Dilaudid] Allergy (Severe, Verified 06/24/18 12:07) Laryngospasms morphine Allergy (Severe, Verified 06/24/18 12:07) chest tightening TAPE Adverse Reaction (Mild, Uncoded 06/24/18 12:07) Other Home Medications: Ambulatory Orders Medication Instructions Recorded Albuterol Aerosols [Ventolin 2.5 mg INHALATION Q2H PRN PRN 01/17/18 Aerosols] vial.neb. Silver/Hydrocolloid Dressing 1 ea TP .QDAILY #30 bandage 01/17/18 [Aquacel-Ag W-Hydrofiber Dress] levothyroxine 150 mcg tablet 150 mcg PO DAILY@0600 #30 tab 01/27/18 liothyronine 5 mcg tablet 5 mcg PO DAILY #30 tab 01/27/18 Surgical History: Surgical History (Last Reviewed 06/13/18 @ 09:12 by Mile Healy) H/O total mastectomy of left breast Z90.12 HOSPITAL FEBRILE NEUTROPENIA DISCHARGED 07/14/2017 History of lumpectomy Z98.890 History of partial mastectomy of left breast Onset Date: 03/2017 Z98.890, Z90.12 PORT PLACEMENT Onset Date: 04/2017 Plantar wart Onset Date: ~2007 B07.0 SURGICAL PREPARATION LEFT LATERAL BREAST WITH INCISION AND DRAINAGE AND EXCISION NON HEALING SURGICAL LUMPECTOMY SEROMA ULCER WITH 9 CM COMPLEX SECONDARY WOUND CLOSURE 08/05/2017 [place] teeth extracted K08.499 Surgical History: - - [place] teeth, [place] Wart, Partial Mastectomy 04/06/17, Port Placement, left lateral breast with incision and drainage and excision nonhealing post-lumpectomy seroma ulcer with 9 cm complex secondary wound closure, recent Revision left breast reconstruction with excision painful infected lateral radiation lumpectomy scar contour deformity with completion mastectomy. 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 Paternal Family History: Family History (Last Reviewed 06/13/18 @ 09:12 by Mile Healy) Mother Psychiatric disorder Thyroid disorder Father Hyperlipidemia Hypertension Father Heart disease Aunt Seizures Grandmother Cancer Colon cancer Grandfather Diabetes Heart disease History Items: Heart Disease, Hypertension Review of Systems Constitutional: Reports: - - complete ROS negative except as documented in HPI Patient Problems: Active and Suspected Problems (Last Reviewed 06/13/18 @ 09:12 by Mile Healy) Speech disturbance (Acute) Transient global amnesia (Acute) - Physical Exam General: Alert HEENT: Normocephalic Neck: Supple Lungs: Normal air movement Cardiovascular: Normal S1, Normal S2 Abdomen: Bowel Sounds Present Extremities: No cyanosis Musculoskeletal: No Tenderness to Palpation of Joints or Extremities Neurological: Cranial nerves II-XII grossly intact, Deep Tendon Reflexes 2+/4 and Symmetrical, Neuro grossly intact, Motor Exam 5/5 strength throughout, Muscle tone normal, Sensory exam intact to light touch and pain, Coordination normal Psych/Mental Status: Normal Affect Vital Signs Temp Pulse Resp BP Pulse Ox 98.3 F 93 18 115/80 100 06/25/18 15:03 06/25/18 15:03 06/25/18 15:03 06/25/18 15:03 06/25/18 15:03 Oxygen Flow Rate (L/min) 2 Oxygen Delivery Method Room Air Weight: 98.6 kg Body Mass Index (BMI) 32.5 Finger Stick Blood Glucose 145 Intake and Output for Last 24 Hours 06/23/18 06/24/18 06/25/18 23:59 23:59 23:59 Intake Total 1700 / 1700 927.3 / 927.3 Output Total 1065 / 1065 Balance 1700 / 1700 -137.7 / -137.7 Microbiology Past 72 Hours 06/24/18 17:47 Wound Culture - Preliminary Tissue - Breast No growth-Final to follow Laboratory Tests Past 24 Hrs 06/24/18 06/25/18 06/25/18 22:45 04:20 04:20 WBC 7.7 RBC 3.35 L Hgb 10.3 L Hct 30.1 L MCV 89.9 MCH 30.7 MCHC 34.2 RDW 13.3 RDW Differential 42.6 Plt Count 149 L MPV 8.1 Sodium 142 Potassium 4.4 Chloride 109 H Carbon Dioxide 26.0 Anion Gap 7 BUN 15 Creatinine 0.98 Estim Creat Clear Calc 81.60 Est GFR (MDRD) Af Amer 84 Est GFR (MDRD) Non-Af 69 BUN/Creatinine Ratio 15.3 Glucose 131 H Calcium 8.1 L Troponin I < 0.015 Prealbumin 21.1 Triglycerides 82 Cholesterol 123 LDL Cholesterol 55 VLDL Cholesterol 16 HDL Cholesterol 52 POC Glucose 06/24/18 21:22 POC Glucose 145 H Assessment/Plan All Active Problems (Last Reviewed 06/13/18 @ 09:12 by Mile Healy) Speech disturbance (Acute) Transient global amnesia (Acute) Left ovarian cyst (Acute) Encounter for preconception consultation (Acute) GERD (gastroesophageal reflux disease) (Acute) Family history of colon cancer in father (Acute) Open wound of left breast with complication (Acute) Acquired absence of left breast and nipple (Acute) Wound infection (Acute) Late effect of radiation (Acute) Medication management (Acute) Pain of left breast (Acute) Other specified complications of surgical and medical care, not elsewhere classified, subsequent encounter (Acute) Disproportion of reconstructed breast (Acute) Deformity of reconstructed breast (Acute) Drug induced neutropenia (Resolved) Pancytopenia (Resolved) Fever (Acute) Febrile neutropenia (Acute) The patient is a 33 year old CF with PMH STEVE on CPAP, Narcolepsy, Anxiety/ depression, ?H/O Bipolar d/o, hypothyroidism, H/O Breast cancer s/p lumpectomy, mastectomy, chemotherapy, had left mastectomy on 06/24/18 and later that night had episode of speech disturbance where she was not able to get her words out, the event lasted for about 1-11/2 hour, after which she improved, per patient she was going to go the bathroom when she felt woozy and stumbled and was not able to get her words out, there was no focal deficits, patient denies any loss of awareness, witnessed seizures, tongue bite, urinary incontinence or post ictal state, per Dr. Taylor who called stroke alert for her symptoms, her vitals were normal and she was not given IVtpa since patient had mastectomy on the same day. Per patient she has been having these speech disturbances since the age 16, now the frequency has decreased, it has happened only twice this year and per patient used to happen more frequently in the past, in the past sometimes she would have speech disturbances where she would not be able to move her body but would be aware of the same, she has been diagnosed with Narcolepsy by Dr. Tadeo per patient. Per patient she had numerous MRI brain and EEGs normal in the past. During this admission following this episode MRI brain and CTA head/neck were reported to be normal. At present patient denies any MENEZES, speech disturbances, visual disturbances, focal motor weakness or sensory loss. Per patient she was diagnosed with bipolar d/o in the past and was on Lamictal for the same, but it was discontinued by her present psychiatrist last year around February 2017. 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 Tadeo her sleep specialist after discharge for further management of Narcolepsy -MRI brain and CTA head/neck reviewed -Check EEG -Further medical management per primary team/ICU team -GI/DVT prophylaxis -Fall precautions -Please call with questions if any -Thank you for allowing us to participate in patient's care and management I spent 60 minutes of critical care time taking history, doing physical examination, reviewing medical records, coordinating care and counseling the patient. Code Visit Inpatient E&M: 44595 Init Hosp L3
[2018-06-25] MEDS: Lactated Ringers 1,000 ML 60 ML IV (18:08)
[2018-06-25] MEDS: diazePAM 5 MG Tablet PO (18:19)
[2018-06-25] MEDS: Docusate Sodium 100 MG Capsule PO (21:00)
[2018-06-26 02:30] VITALS: BP 135/69; PULSE 84; RESP 18; TEMP 36.9; O2SAT 100
[2018-06-26] MEDS: diazePAM 5 MG Tablet PO ×2 (02:37→16:15)
[2018-06-26 02:49] VITALS: PULSE 84
[2018-06-26] MEDS: Enoxaparin 30 MG/0.3 ML Syringe SC (05:46)
[2018-06-26] MEDS: Ondansetron 4 MG/2 ML Vial IV (05:56)
[2018-06-26 08:45] VITALS: BP 123/75; PULSE 79; RESP 18; TEMP 36.8; O2SAT 98
[2018-06-26] MEDS: oxyCODONE 5 MG Tablet 10 MG PO ×2 (08:47→16:15)
[2018-06-26] MEDS: levoFLOXacin IV 500 MG/100 ML BAG 100 MG IV (08:50)
[2018-06-26] MEDS: Docusate Sodium 100 MG Capsule PO (08:51)
[2018-06-26] MEDS: proMETHazine 25 MG Tablet PO (11:47)
--- NOTE | 2018-06-26 13:41 | PCM.PN.HOSP ---
Patient Problems: Active and Suspected Problems (Last Reviewed 06/13/18 @ 09:12 by Mile Healy) Speech disturbance (Acute) Transient global amnesia (Acute) Subjective: Neurology consult appreciated. Patient has history of narcolepsy with cataplexy. The patient was on Nuvigil 150 mg by his sleep doctor. This was discontinued when she was started on chemotherapy for CA breast. Vitals/I&O's: Vital Signs Temp Pulse Resp BP Pulse Ox 98.2 F 79 18 123/75 H 98 06/26/18 08:45 06/26/18 08:45 06/26/18 08:45 06/26/18 08:45 06/26/18 08:45 Oxygen Flow Rate (L/min) 2 Oxygen Delivery Method Room Air Weight: 220 lb 7.396 oz Body Mass Index (BMI) 32.5 Finger Stick Blood Glucose 145 Intake and Output for Last 24 Hours 06/24/18 06/25/18 06/26/18 23:59 23:59 23:59 Intake Total 1700 / 1700 1167.3 / 1167.3 3183 / 3183 Output Total 1065 / 1065 3190 / 3190 Balance 1700 / 1700 102.3 / 102.3 -7 / -7 General: Alert, Oriented x3, Cooperative HEENT: Atraumatic, PERRLA, EOMI, Normocephalic Neck: Supple, No JVD, Negative Carotid Bruits Lungs: Clear to auscultation, Normal air movement Cardiovascular: Regular rate, No murmurs Abdomen: Bowel Sounds Present, Soft, Non Tender, Non-Distended Extremities: No edema, Capillary Refill Less than 3 Seconds Skin: No rashes, No breakdown, Ulcer/ Wound - Left breast surgical wound status post excision of excess mastectomy skin SCAR. Dressing is dry Musculoskeletal: No Tenderness to Palpation of Joints or Extremities Neurological: Cranial nerves II-XII grossly intact Psych/Mental Status: Normal Affect, Appropriate Microbiology Past 72 Hours 06/24/18 17:47 Tissue - Breast Gram Stain - Final 06/24/18 17:47 Tissue - Breast Wound Culture - Preliminary No growth-Final to follow Current Medications Albuterol Sulfate (Ventolin Aerosols) 2.5 mg INHALATION Q2H PRN PRN PRN Reason: dyspnea, wheezing Diazepam (Valium) 5 mg PO 4X/DAY PRN PRN PRN Reason: SPASMS Last Admin: 06/26/18 02:37 Dose: 5 mg Docusate Sodium (Colace) 100 mg PO BID [facility] Last Admin: 06/26/18 08:51 Dose: 100 mg Enoxaparin Sodium (Lovenox) 30 mg SC DAILY@0600 [facility] Last Admin: 06/26/18 05:46 Dose: 30 mg Clindamycin Phosphate 600 mg/ (Dextrose) 54 mls @ 162 mls/hr IV Q8 [facility] Last Admin: 06/26/18 05:46 Dose: 162 mls/hr Levofloxacin (Levaquin Iv) 500 mg in 100 mls @ 100 mls/hr IV Q24 [facility] Last Admin: 06/26/18 08:50 Dose: 100 mls/hr Lactated Ringer's () 1,000 mls @ 60 mls/hr IV .[id number] [facility] Last Admin: 06/25/18 18:08 Dose: 60 mls/hr Ketorolac Tromethamine (Toradol) 30 mg IV Q6H PRN PRN PRN Reason: Pain Stop: 06/29/18 23:06 Last Admin: 06/25/18 00:53 Dose: 30 mg Levothyroxine Sodium (Synthroid) 150 mcg PO DAILY@0600 [facility] Last Admin: 06/26/18 05:47 Dose: Not Given Liothyronine Sodium (Cytomel) 5 mcg PO DAILY [facility] Last Admin: 06/26/18 08:51 Dose: 5 mcg Meperidine HCl (Demerol) 50 - 75 mg IV Q3H PRN PRN Reason: PAIN Last Admin: 06/26/18 02:37 Dose: 50 mg Nutritional Formula ([place] [facility] [place] Fl[facility] Last Admin: 06/26/18 08:47 Dose: 1 packet Ondansetron HCl (Zofran) 4 mg IV Q6H PRN PRN PRN Reason: NAUSEA Last Admin: 06/26/18 05:56 Dose: 4 mg Oxycodone HCl (Oxyir) 10 mg PO Q4H PRN PRN PRN Reason: SEVERE PAIN (6-10/10) Last Admin: 06/26/18 08:47 Dose: 10 mg Promethazine HCl (Phenergan Tablet) 25 mg PO Q4H PRN PRN PRN Reason: NAUSEA/VOMITING Last Admin: 06/26/18 11:47 Dose: 25 mg Sodium Chloride () 5 - 30 ml IV UD PRN PRN Reason: SALINE FLUSH Last Admin: 06/25/18 00:53 Dose: 20 ml Medical Necessity - Tobacco Use Smoking Status: Former smoker Assessment/Plan All Active Problems (Last Reviewed 06/13/18 @ 09:12 by Mile Healy) Speech disturbance (Acute) Transient global amnesia (Acute) Left ovarian cyst (Acute) Encounter for preconception consultation (Acute) GERD (gastroesophageal reflux disease) (Acute) Family history of colon cancer in father (Acute) Open wound of left breast with complication (Acute) Acquired absence of left breast and nipple (Acute) Wound infection (Acute) Late effect of radiation (Acute) Medication management (Acute) Pain of left breast (Acute) Other specified complications of surgical and medical care, not elsewhere classified, subsequent encounter (Acute) Disproportion of reconstructed breast (Acute) Deformity of reconstructed breast (Acute) Drug induced neutropenia (Resolved) Pancytopenia (Resolved) Fever (Acute) Febrile neutropenia (Acute) The patient is a 33 year old F with history of left breast cancer status post lumpectomy, then completion mastectomy followed by wound infection and debridement was admitted this time by Dr. Robertson for excision of excess mastectomy skin scar with contour deformity and excision of nonhealing radiation ulcer on 06/24/2018. Yesterday night, stroke alert was called and patient was noticed to have blank look, and mild to moderate aphasia. As per the 19 hospitalist, she had expressive global aphasia. Subsequently she had CT angiogram of head and neck which reported normal. Blood glucose was found normal. NIH stroke scale was done and first was found 1 due to mild to moderate aphasia but later on subsequently was 0 on multiple nursing assessment. MRI brain was done which did not show any evidence of infarct, hemorrhage or metastatic disease. On further history, she said she had this problem since her age of young adolescent after she had concussion injury and she has detailed workup as an outpatient including 24 hour video EEG monitoring but everything was found normal. She does not think she has a history of seizure. On her home medication, she is not on antiepileptic medication 1. 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 and MRI imaging test was normal as mentioned above. Discontinue NIH stroke scale. Patient was seen by neurology and consult reviewed and appreciated. He advised EEG which might be done as an outpatient. As mentioned above, previous 24 hour video EEG monitoring was negative as per the patient. Follow-up with Dr. Tadeo her sleep specialist after discharge for further management of Narcolepsy 2. Left breast cancer status post mastectomy, radiotherapy, radiotherapy with radiation scar SKIN ulcer and scar tissue status post excision: Patient is on Levaquin. Continue control. 3. Hypothyroidism, obstructive sleep apnea and mood disorder with depression and anxiety: Continue her home medication. On levothyroxine. 4. DVT prophylaxis: On Lovenox. Patient can be discharged with follow-up instruction as mentioned above. Hospitalist team will sign off. Code Visit Inpatient E&M: 18905 Subs Hosp L2
--- NOTE | 2018-06-26 13:47 | PN_ITS ---
Patient Problems: Active and Suspected Problems (Last Reviewed 06/13/18 @ 09:12 by Mile Healy) Speech disturbance (Acute) Transient global amnesia (Acute) Subjective: Neurology consult appreciated. Patient has history of narcolepsy with cataplexy. The patient was on Nuvigil 150 mg by his sleep doctor. This was discontinued when she was started on chemotherapy for CA breast. Vitals/I&O's: Vital Signs Temp Pulse Resp BP Pulse Ox 98.2 F 79 18 123/75 H 98 06/26/18 08:45 06/26/18 08:45 06/26/18 08:45 06/26/18 08:45 06/26/18 08:45 Oxygen Flow Rate (L/min) 2 Oxygen Delivery Method Room Air Weight: 220 lb 7.396 oz Body Mass Index (BMI) 32.5 Finger Stick Blood Glucose 145 Intake and Output for Last 24 Hours 06/24/18 06/25/18 06/26/18 23:59 23:59 23:59 Intake Total 1700 / 1700 1167.3 / 1167.3 3183 / 3183 Output Total 1065 / 1065 3190 / 3190 Balance 1700 / 1700 102.3 / 102.3 -7 / -7 General: Alert, Oriented x3, Cooperative HEENT: Atraumatic, PERRLA, EOMI, Normocephalic Neck: Supple, No JVD, Negative Carotid Bruits Lungs: Clear to auscultation, Normal air movement Cardiovascular: Regular rate, No murmurs Abdomen: Bowel Sounds Present, Soft, Non Tender, Non-Distended Extremities: No edema, Capillary Refill Less than 3 Seconds Skin: No rashes, No breakdown, Ulcer/ Wound - Left breast surgical wound status post excision of excess mastectomy skin SCAR. Dressing is dry Musculoskeletal: No Tenderness to Palpation of Joints or Extremities Neurological: Cranial nerves II-XII grossly intact Psych/Mental Status: Normal Affect, Appropriate Microbiology Past 72 Hours 06/24/18 17:47 Tissue - Breast Gram Stain - Final 06/24/18 17:47 Tissue - Breast Wound Culture - Preliminary No growth-Final to follow Current Medications Albuterol Sulfate (Ventolin Aerosols) 2.5 mg INHALATION Q2H PRN PRN PRN Reason: dyspnea, wheezing Diazepam (Valium) 5 mg PO 4X/DAY PRN PRN PRN Reason: SPASMS Last Admin: 06/26/18 02:37 Dose: 5 mg Docusate Sodium (Colace) 100 mg PO BID [facility] Last Admin: 06/26/18 08:51 Dose: 100 mg Enoxaparin Sodium (Lovenox) 30 mg SC DAILY@0600 [facility] Last Admin: 06/26/18 05:46 Dose: 30 mg Clindamycin Phosphate 600 mg/ (Dextrose) 54 mls @ 162 mls/hr IV Q8 [facility] Last Admin: 06/26/18 05:46 Dose: 162 mls/hr Levofloxacin (Levaquin Iv) 500 mg in 100 mls @ 100 mls/hr IV Q24 [facility] Last Admin: 06/26/18 08:50 Dose: 100 mls/hr Lactated Ringer's () 1,000 mls @ 60 mls/hr IV .[id number] [facility] Last Admin: 06/25/18 18:08 Dose: 60 mls/hr Ketorolac Tromethamine (Toradol) 30 mg IV Q6H PRN PRN PRN Reason: Pain Stop: 06/29/18 23:06 Last Admin: 06/25/18 00:53 Dose: 30 mg Levothyroxine Sodium (Synthroid) 150 mcg PO DAILY@0600 [facility] Last Admin: 06/26/18 05:47 Dose: Not Given Liothyronine Sodium (Cytomel) 5 mcg PO DAILY [facility] Last Admin: 06/26/18 08:51 Dose: 5 mcg Meperidine HCl (Demerol) 50 - 75 mg IV Q3H PRN PRN Reason: PAIN Last Admin: 06/26/18 02:37 Dose: 50 mg Nutritional Formula ([place] [facility] [place] [facility] Admin: 06/26/18 08:47 Dose: 1 packet Ondansetron HCl (Zofran) 4 mg IV Q6H PRN PRN PRN Reason: NAUSEA Last Admin: 06/26/18 05:56 Dose: 4 mg Oxycodone HCl (Oxyir) 10 mg PO Q4H PRN PRN PRN Reason: SEVERE PAIN (6-10/10) Last Admin: 06/26/18 08:47 Dose: 10 mg Promethazine HCl (Phenergan Tablet) 25 mg PO Q4H PRN PRN PRN Reason: NAUSEA/VOMITING Last Admin: 06/26/18 11:47 Dose: 25 mg Sodium Chloride () 5 - 30 ml IV UD PRN PRN Reason: SALINE FLUSH Last Admin: 06/25/18 00:53 Dose: 20 ml Medical Necessity - Tobacco Use Smoking Status: Former smoker Assessment/Plan All Active Problems (Last Reviewed 06/13/18 @ 09:12 by Mile Healy) Speech disturbance (Acute) Transient global amnesia (Acute) Left ovarian cyst (Acute) Encounter for preconception consultation (Acute) GERD (gastroesophageal reflux disease) (Acute) Family history of colon cancer in father (Acute) Open wound of left breast with complication (Acute) Acquired absence of left breast and nipple (Acute) Wound infection (Acute) Late effect of radiation (Acute) Medication management (Acute) Pain of left breast (Acute) Other specified complications of surgical and medical care, not elsewhere classified, subsequent encounter (Acute) Disproportion of reconstructed breast (Acute) Deformity of reconstructed breast (Acute) Drug induced neutropenia (Resolved) Pancytopenia (Resolved) Fever (Acute) Febrile neutropenia (Acute) The patient is a 33 year old F with history of left breast cancer status post lumpectomy, then completion mastectomy followed by wound infection and debridement was admitted this time by Dr. Robertson for excision of excess mastectomy skin scar with contour deformity and excision of nonhealing radiation ulcer on 06/24/2018. Yesterday night, stroke alert was called and patient was noticed to have blank look, and mild to moderate aphasia. As per the 19 hospitalist, she had expressive global aphasia. Subsequently she had CT angiogram of head and neck which reported normal. Blood glucose was found normal. NIH stroke scale was done and first was found 1 due to mild to moderate aphasia but later on subsequently was 0 on multiple nursing assessment. MRI brain was done which did not show any evidence of infarct, hemorrhage or metastatic disease. On further history, she said she had this problem since her age of young adolescent after she had concussion injury and she has detailed workup as an outpatient including 24 hour video EEG monitoring but everything was found normal. She does not think she has a history of seizure. On her home medication, she is not on antiepileptic medication 1. 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 and MRI imaging test was normal as mentioned above. Discontinue NIH stroke scale. Patient was seen by neurology and consult reviewed and appreciated. He advised EEG which might be done as an outpatient. As mentioned above, previous 24 hour video EEG monitoring was negative as per the patient. Follow-up with Dr. Tadeo her sleep specialist after discharge for further management of Narcolepsy 2. Left breast cancer status post mastectomy, radiotherapy, radiotherapy with radiation scar SKIN ulcer and scar tissue status post excision: Patient is on Levaquin. Continue control. 3. Hypothyroidism, obstructive sleep apnea and mood disorder with depression and anxiety: Continue her home medication. On levothyroxine. 4. DVT prophylaxis: On Lovenox. Patient can be discharged with follow-up instruction as mentioned above. Hospitalist team will sign off. Code Visit Inpatient E&M: 62462 Subs Hosp L2
[2018-06-26 14:44] VITALS: BP 125/74; PULSE 90; RESP 16; TEMP 36.3; O2SAT 98
--- NOTE | 2018-06-26 17:14 | PN.SURG_ITS ---
Subjective: Postop #2 Patient is resting comfortably. - Physical Exam General: Alert, Oriented x3 HEENT: PERRLA, EOMI Oral: Moist Mucosa Neck: Supple Abdomen: Soft, Non-Distended Skin: Incision - left breast mastectomy incision is dry and intact. No clinical evidence of hematoma. Neurological: Cranial nerves II-XII grossly intact Psych/Mental Status: Normal Affect, Appropriate Vital Signs Temp Pulse Resp BP Pulse Ox 97.4 F L 90 16 125/74 H 98 06/26/18 14:44 06/26/18 14:44 06/26/18 14:44 06/26/18 14:44 06/26/18 14:44 Oxygen Flow Rate (L/min) 2 Oxygen Delivery Method Room Air Weight: 220 lb 7.396 oz Body Mass Index (BMI) 32.5 Finger Stick Blood Glucose 145 Intake and Output for Last 24 Hours 06/24/18 06/25/18 06/26/18 23:59 23:59 23:59 Intake Total 1700 / 1700 1167.3 / 1167.3 3183 / 3183 Output Total 1065 / 1065 3190 / 3190 Balance 1700 / 1700 102.3 / 102.3 -7 / -7 Microbiology Past 72 Hours 06/24/18 17:47 Gram Stain - Final Tissue - Breast Wound Culture - Preliminary No growth-Final to follow Medical Necessity - Tobacco Use Smoking Status: Former smoker Assessment/Plan All Active Problems (Last Reviewed 06/13/18 @ 09:12 by Mile Healy) Speech disturbance (Acute) Transient global amnesia (Acute) Left ovarian cyst (Acute) Encounter for preconception consultation (Acute) GERD (gastroesophageal reflux disease) (Acute) Family history of colon cancer in father (Acute) Open wound of left breast with complication (Acute) Acquired absence of left breast and nipple (Acute) Wound infection (Acute) Late effect of radiation (Acute) Medication management (Acute) Pain of left breast (Acute) Other specified complications of surgical and medical care, not elsewhere classified, subsequent encounter (Acute) Disproportion of reconstructed breast (Acute) Deformity of reconstructed breast (Acute) Drug induced neutropenia (Resolved) Pancytopenia (Resolved) Fever (Acute) Febrile neutropenia (Acute) 1. Left breast cancer. 2. 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 3. Disproportion reconstructed left breast. 4. Deformity reconstructed left breast with excess painful mastectomy skin scar contour deformity with associated radiation ulcer. 5. Post-mastectomy painful indentation scar contour deformity left lateral breast. 6. s/p lumpectomy left breast with chemotherapy and radiation therapy. 7. s/p completion mastectomy left breast. 8. Late effect radiation left breast. 9. s/p revision reconstructed left breast with excision painful nonhealing radiation ulcer and excision painful excess mastectomy skin scar contour deformity. 10. Transient global amnesia. 11. Narcolepsy. Patient is awake and alert. Neurologist input appreciated. Patient states she has had multiple workups, but will let her PCP know what happened. She has been told she has Narcolepsy in the past. Discharge home today. Followup at [facility] 07/04/18. Wrote script for Levaquin for 14 days until the drain is removed. Wrote scripts for Percocet for pain (60 tabs) and for Valium for spasm (30 tabs) . Wrote scripts for Zofran for nausea (30 tabs) and a refill and for Colace for constipation (60 tabs). Continue TABITHA wrap for chest wall compression. She will continue HBO treatments post discharge.
--- NOTE | 2018-06-26 17:20 | PCM.DC ---
- Discharge Diagnoses Current Active Problems: Current Active and Chronic Problems (Last Reviewed 06/13/18 @ 09:12 by Mile Healy) Speech disturbance (Acute) Transient global amnesia (Acute) You will use the following diet at home:: No restrictions, Other - encourage nutritional supplementation with protein to help the healing process. Discharge Activity: May not drive while taking narcotic pain medications., May Not Shower - until the drain is removed., - - keep head elevated. no heavy lifting. encourage range of motion left shoulder to minimize stiffness. May shower in (days): 10 - after the drain is removed in the office. May resume sexual activity in: 10-14 days Weight Bearing Status: Weight bearing as tolerated Lifting Restrictions: 20 lbs. Keep extremity elevated above heart level: Left Arm, - - elevate head. Call your doctor if your incision/area has: Continuous Slow Oozing, Sudden Increased Bleeding, Increased Pain/ Swelling, Increased Redness, Foul Smelling Discharge, Swelling at the incision site Call your doctor if you observe: Fever of 101 or Higher, Coldness, Increased Pain, Shortness of breath, Chest pain, Calf discomfort, Uncontrolled pain Suture Line Care: - - dry dressings daily. Change Dressing in (Days):: 1 - dry dressings daily. Cleanse incision/area with: - - may get incision wet in the shower after the drain is removed. Drain: Suction - nataly drain to bulb suction. empty and record output daily. Additional Instructions: The Phenergan script was thrown away and Zofran script was done to replace it. Allergies/Adverse Reactions: Allergies hydromorphone [From Dilaudid] Allergy (Severe, Verified 06/24/18 12:07) Laryngospasms morphine Allergy (Severe, Verified 06/24/18 12:07) chest tightening TAPE Adverse Reaction (Mild, Uncoded 06/24/18 12:07) Other Medications to take at Discharge Albuterol Aerosols [Ventolin Aerosols] 2.5 mg INHALATION Q2H PRN PRN vial.neb. 01/17/18 levothyroxine 150 mcg tablet 150 mcg PO DAILY@0600 #30 tab 01/27/18 Diazepam [Valium] 5 mg PO 4X/DAY PRN PRN #30 tab 06/26/18 Docusate Sodium [Colace] 100 mg PO BID #60 cap 06/26/18 Levothyroxine [Synthroid] 150 mcg PO DAILY@0600 tablet 06/26/18 Liothyronine Sodium [Cytomel] 5 mcg PO DAILY tablet 06/26/18 Ondansetron HCl [Zofran] 8 mg PO TID PRN PRN #30 tab 06/26/18 Oxycodone HCl/Acetaminophen [Percocet 5/325] 1 - 2 tab PO 4X/DAY PRN PRN 7 Days #60 tab 06/26/18 levoFLOXacin tablet [Levaquin tablet] 500 mg PO DAILY #14 tab 06/26/18 proMETHazine tablet [Phenergan tablet] 25 mg PO 4X/DAY PRN PRN #30 tab 06/26/18 The following prescriptions were given: Diazepam [Valium] 5 mg PO 4X/DAY PRN PRN #30 tab PRN Reason: Spasms levoFLOXacin tablet [Levaquin tablet] 500 mg PO DAILY #14 tab Ondansetron HCl [Zofran] 8 mg PO TID PRN PRN #30 tab PRN Reason: Nausea Oxycodone HCl/Acetaminophen [Percocet 5/325] 1 - 2 tab PO 4X/DAY PRN PRN 7 Days #60 tab PRN Reason: Pain proMETHazine tablet [Phenergan tablet] 25 mg PO 4X/DAY PRN PRN #30 tab PRN Reason: NAUSEA/VOMITING Docusate Sodium [Colace] 100 mg PO BID #60 cap Primary Care Physician: Rhett Elias MD [Primary Care Provider] - Test Results: Test results from this visit will be discussed in further detail at your follow-up appointment, if applicable. Please Follow Up With: Jose Robertson MD When: wednesday07/04/18 at [facility]. Proposed Discharge Date: 06/26/18
--- NOTE | 2018-06-27 14:04 | EEG ---
- Electroencephalogram Date of service 06/25/2018 History EEG is being done in this 33 yr F to rule out seizures EEG Description: This is an 18 channel EEG with 10-20 lead placement system. Bipolar montages, Referential and Circumferential montages were reviewed. Photic stimulation and Hyperventilation were performed. The posterior dominant rhythm is11 HZ synchronous, symmetric, reacting to eye opening and closing. Photo stimulation elicited normal driving response but no abnormal photoparoxysmal response, Hyperventilation did not elicit any abnormal photoparoxysmal response. Drowsiness was identified. There is no abnormal background slowing noted. There was no epileptiform discharges or electrographic seizures noted during this recording. EKG artefact noted during the record. EEG Interpretation This is a normal awake and drowsy EEG. There is no epileptiform discharges or electrographic seizures noted during the record.
== END 2018-06-26 18:35 | disposition home or self-care (01) ==
LOC: SDC 06-27 08:53 → ICU 06-27 08:54 → MS2 06-27 08:54
PROVIDERS: Anesthesiology; Internal Medicine; Admitting Provider Internal Medicine; Family Provider Family Medicine; PCP Family Medicine; Visit Provider Surgery
PROC: (CPT 19020; principal; 2018-06-24 13:00)
DX: C50.912 Malignant neoplasm of unspecified site of left female breast (principal); N65.1 Disproportion of reconstructed breast; G45.4 Transient global amnesia; L90.5 Scar conditions and fibrosis of skin; L59.8 Other specified disorders of the skin and subcutaneous tissue related to radiation; N61.1 Abscess of the breast and nipple; G47.33 Obstructive sleep apnea (adult) (pediatric); E03.9 Hypothyroidism, unspecified; J45.909 Unspecified asthma, uncomplicated; Y84.2 Radiological procedure and radiotherapy as the cause of abnormal reaction of the patient, or of later complication, without mention of misadventure at the time of the procedure; N64.1 Fat necrosis of breast; K21.9 Gastro-esophageal reflux disease without esophagitis; K76.0 Fatty (change of) liver, not elsewhere classified; Z92.3 Personal history of irradiation; Z92.21 Personal history of antineoplastic chemotherapy; Z79.899 Other long term (current) drug therapy; Z87.891 Personal history of nicotine dependence; G47.411 Narcolepsy with cataplexy; R47.01 Aphasia
CPT/HCPCS: 19380; 70496; 70498; 70553; 80048; 80061; 81025; 82962; 84134; 84484; 85027; 87070; 87075; 87077; 87102; 87186; 87205; 87206; 88307; 92523; 95819; 96365; 96366; 96367; 96372; 96375; 96376; 97802; 99218; A9585; J7120; Q9967; A4216; G0378; G0379; J2405

== ENCOUNTER → 2018-07-04 08:50 | Outpatient (CLI) | payer BC, SELFPAY ==
[2017-09-29 13:07] VITALS: BMI 36.4
--- NOTE | 2018-07-04 08:53 | BI_ITS ---
MAMMOGRAPHY - UNILATERAL SCREENING: RIGHT BREAST REASON FOR EXAM: Female, 33 years old. Routine annual screening examination (unilateral). PERTINENT HISTORY: Personal history of breast cancer. Prior left lumpectomy and left mastectomy. History of chemotherapy and radiation therapy. TECHNIQUE: Digital unilateral breast jesus (3D mammographic acquisition) in the CC and MLO projections. 2-D mediolateral oblique (MLO) and craniocaudad (CC) views of both breasts were obtained. CAD: Full Field Digital Mammography with Computer Added Detection was performed. COMPARISON: Comparison is made with prior study dated March 01, 2017 and prior examination dated April 06, 2017. FINDINGS: Breast Composition: There are scattered areas of fibroglandular density. There are no dominant masses or suspicious calcifications. No other significant abnormalities are identified. There has been no significant change since the prior study. BI/UNILAT RT SCRN W/CAD IMPRESSION: Stable unilateral screening mammogram. Yearly follow-up mammogram recommended. (A) ASSESSMENT CATEGORY: BIRADS Category 1: Negative. A letter regarding these results will be sent to the patient by the facility within 30 days. Approximately 10% of breast cancers are not detected by mammography. A normal mammogram should not delay biopsy of a clinically suspicious abnormality. [id number] Electronically Signed: Lupillo Samuel MD at 10:09 EDT Tel [phone], Service support ,
[2018-07-05 15:26] LABS: Cancer Antigen 125 2303 8.7 U/mL (0.0-38.1)
== END ==
PROVIDERS: Obstetrics & Gynecology; Family Provider Family Medicine; PCP Family Medicine; Visit Provider Internal Medicine Hematology & Oncology
DX: N83.202 Unspecified ovarian cyst, left side (principal); Z12.31 Encounter for screening mammogram for malignant neoplasm of breast
CPT/HCPCS: 36415; 77061; 77063; 77067; 86304; G0279

== ENCOUNTER → 2018-07-11 08:38 | Outpatient (CLI) | payer BC, SELFPAY ==
[2017-09-29 13:07] VITALS: BMI 36.4
--- NOTE | 2018-07-11 08:39 | US_ITS ---
STUDY: ULTRASOUND OF THE FEMALE PELVIS - COMPLETE REASON FOR EXAM: Female, 33 years old. Ovarian cyst. LMP: 06/22/2018 TECHNIQUE: Transabdominal and Transvaginal TECHNICAL QUALITY: Adequate. COMPARISON: None. FINDINGS: The uterus is anteverted and is in a midline position. The uterus measures 9.7 x 6.7 x 4.4 cm. There is a Nabothian cyst of the cervix. The endometrium measures 10 mm in thickness, and is hyperechoic. There is no demonstrated endometrial mass. There is no demonstrated myometrial mass. I.U.D. - The patient does not have an I.U.D. The right ovary is visualized. The right ovary measures 2.6 x 2.0 x 2.2 cm. There is no right ovarian cyst or ovarian mass. There is no visualized right adnexal mass or complex lesion. There is normal arterial and normal venous vascularity. The left ovary is visualized. The left ovary measures 4.4 x 2.8 x 2.9 cm. There is a 2.8 cm simple cyst. There is no visualized left adnexal mass or complex lesion. There is normal arterial and normal venous vascularity. There is trace fluid in the cul-de-sac. US/Transvaginal Non- IMPRESSION: 2.8 cm simple cyst of the left ovary, otherwise negative female pelvis. Electronically Signed: Juniro Hicks MD at 17:10 EDT , Service support ,
--- NOTE | 2018-07-11 08:39 | US_ITS ---
STUDY: ULTRASOUND OF THE FEMALE PELVIS - COMPLETE REASON FOR EXAM: Female, 33 years old. Ovarian cyst. LMP: 06/22/2018 TECHNIQUE: Transabdominal and Transvaginal TECHNICAL QUALITY: Adequate. COMPARISON: None. FINDINGS: The uterus is anteverted and is in a midline position. The uterus measures 9.7 x 6.7 x 4.4 cm. There is a Nabothian cyst of the cervix. The endometrium measures 10 mm in thickness, and is hyperechoic. There is no demonstrated endometrial mass. There is no demonstrated myometrial mass. I.U.D. - The patient does not have an I.U.D. The right ovary is visualized. The right ovary measures 2.6 x 2.0 x 2.2 cm. There is no right ovarian cyst or ovarian mass. There is no visualized right adnexal mass or complex lesion. There is normal arterial and normal venous vascularity. The left ovary is visualized. The left ovary measures 4.4 x 2.8 x 2.9 cm. There is a 2.8 cm simple cyst. There is no visualized left adnexal mass or complex lesion. There is normal arterial and normal venous vascularity. There is trace fluid in the cul-de-sac. US/Pelvic (Non ) IMPRESSION: 2.8 cm simple cyst of the left ovary, otherwise negative female pelvis. Electronically Signed: Junior Hicks MD at 17:10 EDT , Service support ,
[2018-07-11 15:37] LABS: T4 Free Direct 1.06 ng/dL (0.76-1.46); Thyroid Stim Hormone (TSH) 4.22 uIU/mL (0.358-3.74)
== END ==
PROVIDERS: Nurse Practitioner; Family Provider Family Medicine; PCP Family Medicine; Visit Provider Obstetrics & Gynecology
DX: N83.202 Unspecified ovarian cyst, left side (principal); E03.9 Hypothyroidism, unspecified
CPT/HCPCS: 36415; 76830; 76856; 84439; 84443; 84481; 93976

== ENCOUNTER 2018-07-12 12:47 | Day surgery (SDC) | payer BC, SELFPAY ==
[2017-09-29 13:07] VITALS: BMI 36.4
[2018-07-12 13:11] VITALS: BP 124/80; PULSE 109; RESP 16; TEMP 36.4; O2SAT 98; BMI 32.1
[2018-07-12 13:46] LABS: Internal QC Validated? YES +Cl - CLEAR BKGD; Pregnancy, Urine Negative Negative
[2018-07-12] MEDS: Ciprofloxacin 0.3% 2.5ml Bottle 1 DRP (14:22)
--- NOTE | 2018-07-12 14:25 | DCINST_ITS ---
You will use the following diet at home:: No restrictions Discharge Activity: Return to Normal Activity Call your doctor if your incision/area has: Increased Pain/ Swelling Allergies/Adverse Reactions: Allergies hydromorphone [From Dilaudid] Allergy (Severe, Verified 07/11/18 10:41) Laryngospasms morphine Allergy (Severe, Verified 07/11/18 10:41) chest tightening TAPE Adverse Reaction (Mild, Uncoded 07/11/18 10:41) Other Medications to take at Discharge Diazepam [Valium] 5 mg PO 4X/DAY PRN PRN #30 tab 06/26/18 Ondansetron HCl [Zofran] 8 mg PO TID PRN PRN #30 tab 06/26/18 Oxycodone HCl/Acetaminophen [Percocet 5/325] 1 - 2 tab PO 4X/DAY PRN PRN 7 Days #60 tab 06/26/18 levoFLOXacin tablet [Levaquin tablet] 500 mg PO DAILY #14 tab 06/26/18 Albuterol Inhaler [Ventolin Hfa (SP)] 1 - 2 puff INHALATION Q4H PRN PRN 07/11/18 Metronidazole [Flagyl] 500 mg PO Q8H 07/11/18 levothyroxine 150 mcg tablet 150 mcg PO DAILY #30 tab 07/11/18 Primary Care Physician: Rhett Elias MD [Primary Care Provider] - Test Results: Test results from this visit will be discussed in further detail at your follow- up appointment, if applicable. Please Follow Up With: Saad Moran MD When: 3 weeks
--- NOTE | 2018-07-12 14:25 | PCM.OPRPT ---
Problem List (1) Chronic serous otitis media of both ears Status: Chronic Report of Operation Date of Procedure: 07/12/18 Pre-Operative Diagnosis: chronic serous otitis media, right and left Post-Operative Diagnosis: chronic serous otitis media, right and left Surgery/Procedure Performed:: placement pressure equalization tubes, right and left ears Type of Anesthesia:: General Description of Procedure: on the day of the procedure, after appropriate informed consent was obtained, the patient was brought to the operating room and placed in supine position on the operating table. she was placed under general anesthesia. the left ear was examined with the binocular operating microscope. a speculum was placed. the tympanic membrane was viewed in its entirety and found to be intact. a radial myringotomy was made and a light tympanostomy tube was placed. floxin otic drops were instilled. the right ear was examined with the binocular operating microscope. a speculum was placed. the tympanic membrane was viewed in its entirety and found to be intact. the previous tube was removed and a new radial myringotomy was made and a light tympanostomy tube was placed. floxin otic drops were instilled. the patient was awoken from anesthesia and transferred to the PACU in stable condition.
[2018-07-12] MEDS: Oxymetazoline 0.05% 1 SPRAY SPRAY.BTL 15 SPRAY (14:40)
[2018-07-12 15:06] VITALS: BP 124/80; BP 132/78; PULSE 94; RESP 18; TEMP 37; O2SAT 92
[2018-07-12 15:15] VITALS: BP 118/76; BP 124/80; PULSE 87; RESP 16; O2SAT 95
[2018-07-12 15:27] VITALS: BP 120/81; BP 124/80; PULSE 86; RESP 16; TEMP 36.6; O2SAT 97
[2018-07-12 15:52] VITALS: BP 124/80; BP 126/89; PULSE 90; RESP 18; TEMP 36.8; O2SAT 96
== END 2018-07-12 15:59 | disposition home or self-care (01) ==
LOC: SDC 12:48 → AC 12:49
PROVIDERS: Anesthesiology; Family Provider Family Medicine; PCP Family Medicine; Visit Provider Otolaryngology
PROC: (CPT 69436; principal; 2018-07-12 14:10)
DX: H65.23 Chronic serous otitis media, bilateral (principal); E03.9 Hypothyroidism, unspecified; J45.909 Unspecified asthma, uncomplicated; D64.9 Anemia, unspecified; G47.30 Sleep apnea, unspecified; Z79.899 Other long term (current) drug therapy; Z85.3 Personal history of malignant neoplasm of breast
CPT/HCPCS: 69436; 81025; J7120; A4216; J2405

== ENCOUNTER 2018-07-15 12:00 | Outpatient (RCR) | payer BC, OTHER, SELFPAY ==
[2017-09-29 13:07] VITALS: BMI 36.4
[2018-06-18 00:54] VITALS: BP 141/86; PULSE 80; RESP 16; TEMP 36.6
[2018-06-22 13:32] VITALS: BP 154/92; BP 155/92; PULSE 71; PULSE 89; RESP 16; TEMP 36.7
[2018-06-23 13:13] VITALS: BP 144/80; BP 151/88; PULSE 110; PULSE 93; RESP 16; TEMP 36.9; TEMP 37
--- NOTE | 2018-06-23 13:47 | PCM.HBO.PN ---
History of Present Illness Date of Service: 06/23/18 Presenting Chief Complaint: Soft tissue radiation necrosis left breast and nonhealing mastectomy ulcer left breast. VARINDER LACEY is a 33 year old currently undergoing hyperbaric oxygen therapy for soft tissue radiation necrosis left breast and nonhealing mastectomy ulcer left breast. Progress: The patient appears to be tolerating hyperbaric oxygen therapy well. Today's session represents the 11th HBO treatment. Tolerance of hyperbaric oxygen therapy: Hyperbaric oxygen therapy was administered as per the facility's protocol. Patient tolerated hyperbaric oxygen therapy well, without complaints or complications. Upon emergence from the hyperbaric chamber, the patient's vitals remained stable. Patient was discharged in good condition. Past Medical History Chronic Problems (Last Reviewed 06/13/18 @ 09:12 by Mile Healy) Anemia (Chronic) Intermittent epigastric abdominal pain (Chronic) Personal history of malignant neoplasm of breast (Chronic) Cancer of left female breast (Chronic) Fatty liver (Chronic) STEVE (obstructive sleep apnea) (Chronic) Chronic back pain (Chronic) Hypothyroidism (Chronic) Narcolepsy (Chronic) Anxiety and depression (Chronic) Allergies/Adverse Reactions: Allergies hydromorphone [From Dilaudid] Allergy (Severe, Verified 06/13/18 09:14) Laryngospasms morphine Allergy (Severe, Verified 06/13/18 09:14) chest tightening TAPE Adverse Reaction (Mild, Uncoded 06/13/18 08:58) Other Home Medications: Ambulatory Orders Medication Instructions Recorded Albuterol Aerosols [Ventolin 2.5 mg INHALATION Q2H PRN PRN 01/17/18 Aerosols] vial.neb. Silver/Hydrocolloid Dressing 1 ea TP .QDAILY #30 bandage 01/17/18 [Aquacel-Ag W-Hydrofiber Dress] levothyroxine 150 mcg tablet 150 mcg PO DAILY@0600 #30 tab 01/27/18 liothyronine 5 mcg tablet 5 mcg PO DAILY #30 tab 01/27/18 Maternal Family History: Family History (Last Reviewed 06/13/18 @ 09:12 by Mile Healy) Mother Psychiatric disorder Thyroid disorder Father Hyperlipidemia Hypertension Father Heart disease Aunt Seizures Grandmother Cancer Colon cancer Grandfather Diabetes Heart disease Family History: - - Thyroid disease, psychiatric disorder. Paternal Family History: Family History (Last Reviewed 06/13/18 @ 09:12 by Mile Healy) Mother Psychiatric disorder Thyroid disorder Father Hyperlipidemia Hypertension Father Heart disease Aunt Seizures Grandmother Cancer Colon cancer Grandfather Diabetes Heart disease Family History: Heart Disease, Hypertension Smoking Status: Former smoker Physical Exam Vital Signs Temp Pulse Resp BP 98.6 F 110 H 16 144/80 H 06/23/18 13:13 06/23/18 13:13 06/23/18 13:13 06/23/18 13:13 General: Alert, Oriented x3, Cooperative, No apparent distress HEENT: Atraumatic, PERRLA, EOMI, Normocephalic, TM's Clear Lungs: Clear to auscultation, Normal air movement, No rhonchi, No wheeze, No rales Cardiovascular: Regular rate, Regular Rhythm, Normal S1, Normal S2, No murmurs Psych/Mental Status: Normal Affect, Appropriate, Alert and oriented to time, place, person, mood and affect Assessment/Plan The patient appears to be tolerating hyperbaric oxygen therapy well, which will be continued as per the patient's medical plan.
[2018-06-29 13:31] VITALS: BP 126/88; PULSE 129; RESP 16; TEMP 36.2; TEMP 36.3
[2018-06-30 13:26] VITALS: BP 125/99; BP 135/95; PULSE 115; PULSE 92; RESP 16; TEMP 36.4; TEMP 36.6
--- NOTE | 2018-06-30 15:19 | PCM.HBO.PN ---
History of Present Illness Date of Service: 06/30/18 Presenting Chief Complaint: Soft tissue radiation necrosis left breast and nonhealing mastectomy ulcer left breast. VARINDER LACEY is a 33 year old currently undergoing hyperbaric oxygen therapy for soft tissue radiation necrosis left breast and nonhealing mastectomy ulcer left breast. Progress: The patient appears to be tolerating hyperbaric oxygen therapy well. Today's session represents the 13th HBO treatment. Tolerance of hyperbaric oxygen therapy: Hyperbaric oxygen therapy was administered as per the facility's protocol. Patient tolerated hyperbaric oxygen therapy well, without complaints or complications. Upon emergence from the hyperbaric chamber, the patient's vitals remained stable. Patient was discharged in good condition. Past Medical History Chronic Problems (Last Reviewed 06/13/18 @ 09:12 by Mile Healy) Anemia (Chronic) Intermittent epigastric abdominal pain (Chronic) Personal history of malignant neoplasm of breast (Chronic) Cancer of left female breast (Chronic) Fatty liver (Chronic) STEVE (obstructive sleep apnea) (Chronic) Chronic back pain (Chronic) Hypothyroidism (Chronic) Narcolepsy (Chronic) Anxiety and depression (Chronic) Allergies/Adverse Reactions: Allergies hydromorphone [From Dilaudid] Allergy (Severe, Verified 06/24/18 12:07) Laryngospasms morphine Allergy (Severe, Verified 06/24/18 12:07) chest tightening TAPE Adverse Reaction (Mild, Uncoded 06/24/18 12:07) Other Home Medications: Ambulatory Orders Medication Instructions Recorded Albuterol Aerosols [Ventolin 2.5 mg INHALATION Q2H PRN PRN 01/17/18 Aerosols] vial.neb. levothyroxine 150 mcg tablet 150 mcg PO DAILY@0600 #30 tab 01/27/18 Diazepam [Valium] 5 mg PO 4X/DAY PRN PRN #30 tab 06/26/18 Docusate Sodium [Colace] 100 mg PO BID #60 cap 06/26/18 Levothyroxine [Synthroid] 150 mcg PO DAILY@0600 tablet 06/26/18 Liothyronine Sodium [Cytomel] 5 mcg PO DAILY tablet 06/26/18 Ondansetron HCl [Zofran] 8 mg PO TID PRN PRN #30 tab 06/26/18 Oxycodone HCl/Acetaminophen 1 - 2 tab PO 4X/DAY PRN PRN 7 Days 06/26/18 [Percocet 5/325] #60 tab levoFLOXacin tablet [Levaquin 500 mg PO DAILY #14 tab 06/26/18 tablet] proMETHazine tablet [Phenergan 25 mg PO 4X/DAY PRN PRN #30 tab 06/26/18 tablet] Maternal Family History: Family History (Last Reviewed 06/13/18 @ 09:12 by Mile Healy) Mother Psychiatric disorder Thyroid disorder Father Hyperlipidemia Hypertension Father Heart disease Aunt Seizures Grandmother Cancer Colon cancer Grandfather Diabetes Heart disease Family History: - - Thyroid disease, psychiatric disorder. Paternal Family History: Family History (Last Reviewed 06/13/18 @ 09:12 by Mile Healy) Mother Psychiatric disorder Thyroid disorder Father Hyperlipidemia Hypertension Father Heart disease Aunt Seizures Grandmother Cancer Colon cancer Grandfather Diabetes Heart disease Family History: Heart Disease, Hypertension Smoking Status: Former smoker Physical Exam Vital Signs Temp Pulse Resp BP 98 F 115 H 16 135/95 H 06/30/18 13:26 06/30/18 13:26 06/30/18 13:26 06/30/18 13:26 General: Alert, Oriented x3, Cooperative, No apparent distress HEENT: Atraumatic, PERRLA, Normocephalic, TM's Clear Lungs: Clear to auscultation, Normal air movement Cardiovascular: Regular rate, Regular Rhythm, Normal S1, Normal S2 Psych/Mental Status: Normal Affect, Appropriate, Alert and oriented to time, place, person, mood and affect Assessment/Plan The patient appears to be tolerating hyperbaric oxygen therapy well, which will be continued as per the patient's medical plan.
[2018-07-01 13:00] VITALS: BP 120/85; BP 145/98; PULSE 108; PULSE 93; RESP 16; TEMP 36.2; TEMP 36.6
--- NOTE | 2018-07-01 19:57 | PCM.HBO.PN ---
History of Present Illness Date of Service: 07/01/18 Presenting Chief Complaint: Soft tissue radiation necrosis left breast and nonhealing mastectomy ulcer left breast. VARINDER LACEY is a 33 year old currently undergoing hyperbaric oxygen therapy for soft tissue radiation necrosis left breast and nonhealing mastectomy ulcer left breast. Progress: The patient appears to be tolerating hyperbaric oxygen therapy well. Today's session represents the 14th HBO treatment. Tolerance of hyperbaric oxygen therapy: Hyperbaric oxygen therapy was administered as per the facility's protocol. Patient tolerated hyperbaric oxygen therapy well, without complaints or complications. Upon emergence from the hyperbaric chamber, the patient's vitals remained stable. Patient was discharged in good condition. Past Medical History Chronic Problems (Last Reviewed 06/13/18 @ 09:12 by Mile Healy) Anemia (Chronic) Intermittent epigastric abdominal pain (Chronic) Personal history of malignant neoplasm of breast (Chronic) Cancer of left female breast (Chronic) Fatty liver (Chronic) STEVE (obstructive sleep apnea) (Chronic) Chronic back pain (Chronic) Hypothyroidism (Chronic) Narcolepsy (Chronic) Anxiety and depression (Chronic) Allergies/Adverse Reactions: Allergies hydromorphone [From Dilaudid] Allergy (Severe, Verified 06/24/18 12:07) Laryngospasms morphine Allergy (Severe, Verified 06/24/18 12:07) chest tightening TAPE Adverse Reaction (Mild, Uncoded 06/24/18 12:07) Other Home Medications: Ambulatory Orders Medication Instructions Recorded Albuterol Aerosols [Ventolin 2.5 mg INHALATION Q2H PRN PRN 01/17/18 Aerosols] vial.neb. levothyroxine 150 mcg tablet 150 mcg PO DAILY@0600 #30 tab 01/27/18 Diazepam [Valium] 5 mg PO 4X/DAY PRN PRN #30 tab 06/26/18 Docusate Sodium [Colace] 100 mg PO BID #60 cap 06/26/18 Levothyroxine [Synthroid] 150 mcg PO DAILY@0600 tablet 06/26/18 Liothyronine Sodium [Cytomel] 5 mcg PO DAILY tablet 06/26/18 Ondansetron HCl [Zofran] 8 mg PO TID PRN PRN #30 tab 06/26/18 Oxycodone HCl/Acetaminophen 1 - 2 tab PO 4X/DAY PRN PRN 7 Days 06/26/18 [Percocet 5/325] #60 tab levoFLOXacin tablet [Levaquin 500 mg PO DAILY #14 tab 06/26/18 tablet] proMETHazine tablet [Phenergan 25 mg PO 4X/DAY PRN PRN #30 tab 06/26/18 tablet] oxycodone-acetaminophen 5 mg-325 1 tab PO 4X/DAY PRN #40 tab 07/01/18 mg tablet Maternal Family History: Family History (Last Reviewed 06/13/18 @ 09:12 by Mile Healy) Mother Psychiatric disorder Thyroid disorder Father Hyperlipidemia Hypertension Father Heart disease Aunt Seizures Grandmother Cancer Colon cancer Grandfather Diabetes Heart disease Family History: - - Thyroid disease, psychiatric disorder. Paternal Family History: Family History (Last Reviewed 06/13/18 @ 09:12 by Mile Healy) Mother Psychiatric disorder Thyroid disorder Father Hyperlipidemia Hypertension Father Heart disease Aunt Seizures Grandmother Cancer Colon cancer Grandfather Diabetes Heart disease Family History: Heart Disease, Hypertension Smoking Status: Former smoker Physical Exam Vital Signs Temp Pulse Resp BP 97.9 F 108 H 16 145/98 H 07/01/18 13:00 07/01/18 13:00 07/01/18 13:00 07/01/18 13:00 General: Alert, Oriented x3, Cooperative, No apparent distress Psych/Mental Status: Normal Affect, Appropriate Assessment/Plan Active Problems (Last Reviewed 06/13/18 @ 09:12 by Mile Healy) Open wound of left breast with complication (Acute) Late effect of radiation (Acute) late effect radiation left breast Other specified complications of surgical and medical care, not elsewhere classified, subsequent encounter (Acute) post-lumpectomy seroma ulcer left lateral breast Deformity of reconstructed breast (Acute) lateral deformity reconstructed left breast The patient appears to be tolerating hyperbaric oxygen therapy well, which will be continued as per the patient's medical plan.
[2018-07-04 10:07] VITALS: BP 124/76; PULSE 104; RESP 18; TEMP 36.2
[2018-07-04 13:05] VITALS: BP 140/83; PULSE 94; RESP 16; TEMP 36.6
--- NOTE | 2018-07-04 13:31 | HBO.PN.PCM_ITS ---
History of Present Illness Date of Service: 07/04/18 Presenting Chief Complaint: Soft tissue radiation necrosis left breast and nonhealing mastectomy ulcer left breast. VARINDER LACEY is a 33 year old currently undergoing hyperbaric oxygen therapy for soft tissue radiation necrosis left breast and nonhealing mastectomy ulcer left breast. Progress: The patient has been tolerating hyperbaric oxygen therapy well. However, during today's session, her 15th, the patient developed right ear pain. Despite maneuvers and efforts to equilibrate pressure, the pain did not dissipate. Tolerance of hyperbaric oxygen therapy: During the patient's 15 session of hyperbaric oxygen therapy today, she developed right ear pain, necessitating the discontinuation of hyperbaric oxygen therapy today. The patient had not reached depth, as the right ear pain occurred early in her hyperbaric oxygen therapy session. Following the patient's emergence from the hyperbaric chamber , her right ear pain persisted. Otoscopic examination revealed cerumen in her right ear canal, with a hemorrhagic right tympanic membrane. Upon emergence from the hyperbaric chamber, the patient's vitals remained stable. Past Medical History Chronic Problems (Last Reviewed 06/13/18 @ 09:12 by Mile Healy) Radiation skin ulcer of chest (Chronic) nonhealing painful radiation ulcer left breast mastectomy Anemia (Chronic) Intermittent epigastric abdominal pain (Chronic) Personal history of malignant neoplasm of breast (Chronic) Cancer of left female breast (Chronic) Fatty liver (Chronic) STEVE (obstructive sleep apnea) (Chronic) Chronic back pain (Chronic) Hypothyroidism (Chronic) Narcolepsy (Chronic) Anxiety and depression (Chronic) Allergies/Adverse Reactions: Allergies hydromorphone [From Dilaudid] Allergy (Severe, Verified 06/24/18 12:07) Laryngospasms morphine Allergy (Severe, Verified 06/24/18 12:07) chest tightening TAPE Adverse Reaction (Mild, Uncoded 06/24/18 12:07) Other Home Medications: Ambulatory Orders Medication Instructions Recorded Albuterol Aerosols [Ventolin 2.5 mg INHALATION Q2H PRN PRN 01/17/18 Aerosols] vial.neb. levothyroxine 150 mcg tablet 150 mcg PO DAILY@0600 #30 tab 01/27/18 Diazepam [Valium] 5 mg PO 4X/DAY PRN PRN #30 tab 06/26/18 Docusate Sodium [Colace] 100 mg PO BID #60 cap 06/26/18 Levothyroxine [Synthroid] 150 mcg PO DAILY@0600 tablet 06/26/18 Liothyronine Sodium [Cytomel] 5 mcg PO DAILY tablet 06/26/18 Ondansetron HCl [Zofran] 8 mg PO TID PRN PRN #30 tab 06/26/18 Oxycodone HCl/Acetaminophen 1 - 2 tab PO 4X/DAY PRN PRN 7 Days 06/26/18 [Percocet 5/325] #60 tab levoFLOXacin tablet [Levaquin 500 mg PO DAILY #14 tab 06/26/18 tablet] proMETHazine tablet [Phenergan 25 mg PO 4X/DAY PRN PRN #30 tab 06/26/18 tablet] oxycodone-acetaminophen 5 mg-325 1 tab PO 4X/DAY PRN #40 tab 07/01/18 mg tablet Maternal Family History: Family History (Last Reviewed 06/13/18 @ 09:12 by Mile Healy) Mother Psychiatric disorder Thyroid disorder Father Hyperlipidemia Hypertension Father Heart disease Aunt Seizures Grandmother Cancer Colon cancer Grandfather Diabetes Heart disease Family History: - - Thyroid disease, psychiatric disorder. Paternal Family History: Family History (Last Reviewed 06/13/18 @ 09:12 by Mile Healy) Mother Psychiatric disorder Thyroid disorder Father Hyperlipidemia Hypertension Father Heart disease Aunt Seizures Grandmother Cancer Colon cancer Grandfather Diabetes Heart disease Family History: Heart Disease, Hypertension Smoking Status: Former smoker Physical Exam Vital Signs Temp Pulse Resp BP 97.1 F L 104 H 18 124/76 H 07/04/18 10:07 07/04/18 10:07 07/04/18 10:07 07/04/18 10:07 General: Alert, Oriented x3, Cooperative, No apparent distress, Well developed, Well nourished HEENT: Atraumatic, PERRLA, EOMI, Normocephalic, - - Otoscopic examination of the right ear reveals cerumen in the ear canal, and a hemorrhagic right tympanic membrane. Lungs: Normal air movement Psych/Mental Status: Normal Affect, Appropriate, Alert and oriented to time, place, person, mood and affect Assessment/Plan The patient's hyperbaric oxygen session today, #15, was discontinued early, following complaints on the patient's part regarding right ear pain, which routine maneuvers did not clear. Based upon otoscopic examination of the right ear canal, it appears as though the patient has suffered from barotrauma of the right tympanic membrane. Arrangements are to be made for the patient to be evaluated by the Otolaryngology service (ENT), and it is anticipated that the patient may benefit from placement of a myringotomy tube. Thereafter, it is likely that the patient's hyperbaric oxygen therapy sessions will be resumed.
--- NOTE | 2018-07-04 22:54 | PCM.WC.PN ---
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 History of Wound: Surgery 06/24/18 - Revision reconstructed left breast with excision painful nonhealing radiation ulcer and excision painful excess mastectomy skin scar contour deformity. Wound care - Surgical dressing from recent surgery. Operative culture - Staphylococcus aureus and Anaerobic cocci. She was discharged on Levaquin. Flagyl will be added today. Prealbumin fromo 06/25/18 was 21.1. Encourage nutritional supplementation with protein to help the healing process. She will resume her HBO treatments later this week. Progress of Wound: Recent surgery 06/24/18. - Physical Exam Vital Signs Temp Pulse Resp BP 98 F 94 16 140/83 H 07/04/18 13:05 07/04/18 13:05 07/04/18 13:05 07/04/18 13:05 Wound Measurements and Assessment WC - Nurse 1 - General Ulcer Measurement Start: 06/22/18 13:32 Freq: Status: Active Protocol: Activity Type Activity Date Activity User E-Sign Co-Sign Detail Recorded Client Recorded Date Recorded By Document 07/04/18 10:07 DV [id number] 07/04/18 10:15 DV 07/04/18 10:07 Wound Center Nurse 1 [Ulcer Assessment] #1- LT BREAST POST OP -Combined with other wound No -Date of Last Picture (Recall this 07/04/18 field) -Photo Taken Yes -Epithelialization None Present -Tunneling No -Undermining/Tunneling No -Circular Undermining No -Classification - Thickness Full Thickness without Exposed Support Structure -Granulation Amt None Present (0 %) -Granulation Quality N/A -Slough/Fibrin No -Necrosis Amt None Present (0 %) -Structure Exposed N/A -Texture (Anni-wound Skin Appearance) Assessed Scarring -Moisture (Anni-wound Skin Appearance No Abnormality ) Assessed -Color (Anni-wound Skin Appearance) No Abnormality Assessed -Temperature (Anni-wound Skin No Abnormality Appearance) (Pt Warm) -Tenderness on Palpation (Anni-wound No Skin Appearance) -Ulcer Cleansing Sutures -Foul Odor after Cleansing No [Edema Assessment] -Lower Limb Edema Present No WC - Nurse 2 - General Ulcer CM Notes Start: 06/22/18 13:32 Freq: Status: Active Protocol: Activity Type Activity Date Activity User E-Sign Co-Sign Detail Recorded Client Recorded Date Recorded By Document 07/04/18 11:03 [id number] [id number] 07/04/18 11:05 07/04/18 11:03 Wound Center Nurse 2 [Procedure/Treatment] #1- LT BREAST POST OP -Correct Patient No -Correct Side, Site, Position No -Correct Procedure No -Procedure Performed No -Wound/Ulcer Outcome Not Healed [See Physician Procedure note for Specifics] Pain Scale: 0-10 Numeric [Pain] -Is Patient Pain Free? No [Location] left side breast -Description Dull -Intensity 3 Query Text:If >3, intervention needed -Duration (hours) Acute -Pain Behavior No Change in Behavior -Pain Aggravating Factors ADL's -Alleviating Factors/Interventions Medication -Effectiveness of Alleviating Factor/ Minimally Intervention effective -Comments valium, more spasm feeling only. Debridement Note Post-Debridement Measurements/Treatment WC - Nurse 2 - General Ulcer CM Notes Start: 06/22/18 13:32 Freq: Status: Active Protocol: Activity Type Activity Date Activity User E-Sign Co-Sign Detail Recorded Client Recorded Date Recorded By Document 07/04/18 11:03 [id number] [id number] 07/04/18 11:05 07/04/18 11:03 Wound Center Nurse 2 #1- LT BREAST POST OP -Correct Patient No -Correct Side, Site, Position No -Correct Procedure No -Procedure Performed No -Wound/Ulcer Outcome Not Healed Pain Scale: 0-10 Numeric Is Patient Pain Free? No left side breast -Description Dull -Intensity 3 Query Text:If >3, intervention needed -Duration (hours) Acute -Pain Behavior No Change in Behavior -Pain Aggravating Factors ADL's -Alleviating Factors/Interventions Medication -Effectiveness of Alleviating Factor/ Minimally Intervention effective -Comments valium, more spasm feeling only. Wound debrided: #1 Left breast. Laterality: Left Wound Grade/Stage: 2. No debridement was completed today - patient had recent surgery on 06/24/18. Assessment/Plan Assessment: 1. Left breast cancer. 2. 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 3. Disproportion reconstructed left breast. 4. Deformity reconstructed left breast with excess painful mastectomy skin scar contour deformity with associated radiation ulcer. 5. Post-mastectomy painful indentation scar contour deformity left lateral breast. 6. s/p lumpectomy left breast with chemotherapy and radiation therapy. 7. s/p completion mastectomy left breast. 8. Late effect radiation left breast. 9. Soft tissue radionecrosis left breast reconstruction. 10. s/p revision reconstructed left breast with excision painful nonhealing radiation ulcer and excision painful excess mastectomy skin scar contour deformity. Plan: Incision is dry and intact. Drainage has been > 50 ml/day. Will remove the drain next week in the office. Continue chest wall compression TABITHA wrap. The operative culture showed Staphylococcus aureus and Anaerobic cocci. She was discharged on Levaquin. Wrote a script for Flagyl today for 10 days. She will stay on the Levaquin until the drain is removed. She will resume her HBO treatments. Prealbumin from 06/25/18 was 21.1. Encourage nutritional supplementation with protein to help the healing process. Renewed her Valium for spasm (30 tabs). Renewed her Zofran for nausea (30 tabs). Followup one week in the office to remove the drain.
[2018-07-07 12:30] VITALS: BP 122/76; PULSE 116; RESP 16; TEMP 36.4
--- NOTE | 2018-07-07 12:41 | HBO.PN.PCM_ITS ---
History of Present Illness Date of Service: 07/07/18 Presenting Chief Complaint: Soft tissue radiation necrosis left breast and nonhealing mastectomy ulcer left breast. VARINDER LACEY is a 33 year old currently undergoing hyperbaric oxygen therapy for soft tissue radiation necrosis left breast and nonhealing mastectomy ulcer left breast. Progress: The patient has been tolerating hyperbaric oxygen therapy well. Status post myringotomy tube placement to right tympanic membrane. However, during today's session, her 15th, she developed left ear pain and was unable to tolerate pressurization. Tolerance of hyperbaric oxygen therapy: During the patient's 15 session of hyperbaric oxygen therapy today, she developed left ear pain, necessitating the discontinuation of hyperbaric oxygen therapy today. The patient had not reached depth, as the left ear pain occurred early in her hyperbaric oxygen therapy session. Following the patient's emergence from the hyperbaric chamber , her left ear pain persisted. Otoscopic examination revealed cerumen in her left ear canal, with a small ruptured left tympanic membrane. Upon emergence from the hyperbaric chamber, the patient's vitals remained stable. Referral to ENT, she already has an established relationship and will follow up with them. Past Medical History Chronic Problems (Last Reviewed 06/13/18 @ 09:12 by Mile Healy) Radiation skin ulcer of chest (Chronic) nonhealing painful radiation ulcer left breast mastectomy Anemia (Chronic) Intermittent epigastric abdominal pain (Chronic) Personal history of malignant neoplasm of breast (Chronic) Cancer of left female breast (Chronic) Fatty liver (Chronic) STEVE (obstructive sleep apnea) (Chronic) Chronic back pain (Chronic) Hypothyroidism (Chronic) Narcolepsy (Chronic) Anxiety and depression (Chronic) Allergies/Adverse Reactions: Allergies hydromorphone [From Dilaudid] Allergy (Severe, Verified 06/24/18 12:07) Laryngospasms morphine Allergy (Severe, Verified 06/24/18 12:07) chest tightening TAPE Adverse Reaction (Mild, Uncoded 06/24/18 12:07) Other Home Medications: Ambulatory Orders Medication Instructions Recorded Albuterol Aerosols [Ventolin 2.5 mg INHALATION Q2H PRN PRN 01/17/18 Aerosols] vial.neb. levothyroxine 150 mcg tablet 150 mcg PO DAILY@0600 #30 tab 01/27/18 Diazepam [Valium] 5 mg PO 4X/DAY PRN PRN #30 tab 06/26/18 Docusate Sodium [Colace] 100 mg PO BID #60 cap 06/26/18 Levothyroxine [Synthroid] 150 mcg PO DAILY@0600 tablet 06/26/18 Liothyronine Sodium [Cytomel] 5 mcg PO DAILY tablet 06/26/18 Ondansetron HCl [Zofran] 8 mg PO TID PRN PRN #30 tab 06/26/18 Oxycodone HCl/Acetaminophen 1 - 2 tab PO 4X/DAY PRN PRN 7 Days 06/26/18 [Percocet 5/325] #60 tab levoFLOXacin tablet [Levaquin 500 mg PO DAILY #14 tab 06/26/18 tablet] proMETHazine tablet [Phenergan 25 mg PO 4X/DAY PRN PRN #30 tab 06/26/18 tablet] oxycodone-acetaminophen 5 mg-325 1 tab PO 4X/DAY PRN #40 tab 07/01/18 mg tablet Maternal Family History: Family History (Last Reviewed 06/13/18 @ 09:12 by Mile Healy) Mother Psychiatric disorder Thyroid disorder Father Hyperlipidemia Hypertension Father Heart disease Aunt Seizures Grandmother Cancer Colon cancer Grandfather Diabetes Heart disease Family History: - - Thyroid disease, psychiatric disorder. Paternal Family History: Family History (Last Reviewed 06/13/18 @ 09:12 by Mile Healy) Mother Psychiatric disorder Thyroid disorder Father Hyperlipidemia Hypertension Father Heart disease Aunt Seizures Grandmother Cancer Colon cancer Grandfather Diabetes Heart disease Family History: Heart Disease, Hypertension Smoking Status: Former smoker Physical Exam Vital Signs Temp Pulse Resp BP 98 F 94 16 140/83 H 07/04/18 13:05 07/04/18 13:05 07/04/18 13:05 07/04/18 13:05 General: Alert, Oriented x3, Cooperative, No apparent distress HEENT: Atraumatic, - - Right ear canal with dried bloody drainage, migraine ergotamine tube intact Left tympanic membrane appears normal Lungs: Clear to auscultation, Normal air movement, No rhonchi, No wheeze, No rales Cardiovascular: Regular rate, Regular Rhythm, Normal S1, Normal S2 Psych/Mental Status: Normal Affect, Appropriate, Alert and oriented to time, place, person, mood and affect Assessment/Plan The patient's hyperbaric oxygen session today, #15, was discontinued early, following complaints on the patient's part regarding left ear pain, which routine maneuvers did not clear. Based upon otoscopic examination of the left ear canal, it appears as though the patient has suffered from barotrauma of the left tympanic membrane. Arrangements are to be made for the patient to be evaluated by the Otolaryngology service (ENT), and it is anticipated that the patient may benefit from placement of a myringotomy tube. Thereafter, it is likely that the patient's hyperbaric oxygen therapy sessions will be resumed.
--- NOTE | 2018-07-14 13:07 | PCM.HBO.PN ---
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 VARINDER LACEY is a 33 year old currently undergoing hyperbaric oxygen therapy for soft tissue radiation necrosis left breast and nonhealing mastectomy ulcer left breast. Progress: The patient has been tolerating hyperbaric oxygen therapy well. Status post myringotomy tube placement to right and most recently left tympanic membrane. Tolerance of hyperbaric oxygen therapy: Today was the patient's 15 session of hyperbaric oxygen therapy today. Therapy was administered per facility protocol. She tolerated hyperbaric oxygen therapy well today, without complaints or complications. Upon emergence from the hyperbaric chamber, her vitals were stable. She was discharged in good condition. 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 Anemia (Chronic) Intermittent epigastric abdominal pain (Chronic) Personal history of malignant neoplasm of breast (Chronic) Cancer of left female breast (Chronic) Fatty liver (Chronic) STEVE (obstructive sleep apnea) (Chronic) Chronic back pain (Chronic) Hypothyroidism (Chronic) Narcolepsy (Chronic) Anxiety and depression (Chronic) Allergies/Adverse Reactions: Allergies hydromorphone [From Dilaudid] Allergy (Severe, Verified 07/13/18 14:25) Laryngospasms morphine Allergy (Severe, Verified 07/13/18 14:25) chest tightening TAPE Adverse Reaction (Mild, Uncoded 07/13/18 14:25) Other Home Medications: Ambulatory Orders Medication Instructions Recorded Diazepam [Valium] 5 mg PO 4X/DAY PRN PRN #30 tab 06/26/18 Ondansetron HCl [Zofran] 8 mg PO TID PRN PRN #30 tab 06/26/18 Oxycodone HCl/Acetaminophen 1 - 2 tab PO 4X/DAY PRN PRN 7 Days 06/26/18 [Percocet 5/325] #60 tab levoFLOXacin tablet [Levaquin 500 mg PO DAILY #14 tab 06/26/18 tablet] Albuterol Inhaler [Ventolin Hfa 1 - 2 puff INHALATION Q4H PRN PRN 07/11/18 (SP)] Metronidazole [Flagyl] 500 mg PO Q8H 07/11/18 levothyroxine 50 mcg tablet 50 mcg PO DAILY #30 tab 07/13/18 Maternal Family History: Family History (Last Reviewed 06/13/18 @ 09:12 by Mile Healy) Mother Psychiatric disorder Thyroid disorder Father Hyperlipidemia Hypertension Father Heart disease Aunt Seizures Grandmother Cancer Colon cancer Grandfather Diabetes Heart disease Family History: - - Thyroid disease, psychiatric disorder. Paternal Family History: Family History (Last Reviewed 06/13/18 @ 09:12 by Mile Healy) Mother Psychiatric disorder Thyroid disorder Father Hyperlipidemia Hypertension Father Heart disease Aunt Seizures Grandmother Cancer Colon cancer Grandfather Diabetes Heart disease Family History: Heart Disease, Hypertension Smoking Status: Former smoker Physical Exam Vital Signs Temp Pulse Resp BP 97.6 F L 116 H 16 122/76 H 07/07/18 12:30 07/07/18 12:30 07/07/18 12:30 07/07/18 12:30 General: Alert, Oriented x3, Cooperative, No apparent distress HEENT: Atraumatic, - - old red drainage to bilateral ear canals Lungs: Clear to auscultation, Normal air movement, No rhonchi, No wheeze, No rales Cardiovascular: Regular rate, Regular Rhythm, Normal S1, Normal S2, No murmurs Psych/Mental Status: Normal Affect, Alert and oriented to time, place, person, mood and affect Assessment/Plan She is tolerating hyperbaric oxygen therapy well. Continue with the patient's medical treatment plan.
[2018-07-14 13:26] VITALS: BP 107/71; BP 120/72; PULSE 69; PULSE 78; RESP 16; RESP 18; TEMP 36.6
[2018-07-15 12:20] VITALS: BP 142/69; BP 148/83; PULSE 111; PULSE 82; RESP 16; RESP 18; TEMP 36.5; TEMP 36.7
--- NOTE | 2018-07-15 18:06 | PCM.HBO.PN ---
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 VARINDER LACEY is a 33 year old currently undergoing hyperbaric oxygen therapy for soft tissue radiation necrosis left breast and nonhealing mastectomy ulcer left breast. Progress: The patient has been tolerating hyperbaric oxygen therapy well. Status post myringotomy tube placement to right and most recently left tympanic membrane. Tolerance of hyperbaric oxygen therapy: Today was the patient's 16th session of hyperbaric oxygen therapy today. Therapy was administered per facility protocol. She tolerated hyperbaric oxygen therapy well today, without complaints or complications. Upon emergence from the hyperbaric chamber, her vitals were stable. She was discharged in good condition. 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 Anemia (Chronic) Intermittent epigastric abdominal pain (Chronic) Personal history of malignant neoplasm of breast (Chronic) Cancer of left female breast (Chronic) Fatty liver (Chronic) STEVE (obstructive sleep apnea) (Chronic) Chronic back pain (Chronic) Hypothyroidism (Chronic) Narcolepsy (Chronic) Anxiety and depression (Chronic) Allergies/Adverse Reactions: Allergies hydromorphone [From Dilaudid] Allergy (Severe, Verified 07/13/18 14:25) Laryngospasms morphine Allergy (Severe, Verified 07/13/18 14:25) chest tightening TAPE Adverse Reaction (Mild, Uncoded 07/13/18 14:25) Other Home Medications: Ambulatory Orders Medication Instructions Recorded Diazepam [Valium] 5 mg PO 4X/DAY PRN PRN #30 tab 06/26/18 Ondansetron HCl [Zofran] 8 mg PO TID PRN PRN #30 tab 06/26/18 Oxycodone HCl/Acetaminophen 1 - 2 tab PO 4X/DAY PRN PRN 7 Days 06/26/18 [Percocet 5/325] #60 tab levoFLOXacin tablet [Levaquin 500 mg PO DAILY #14 tab 06/26/18 tablet] Albuterol Inhaler [Ventolin Hfa 1 - 2 puff INHALATION Q4H PRN PRN 07/11/18 (SP)] Metronidazole [Flagyl] 500 mg PO Q8H 07/11/18 levothyroxine 50 mcg tablet 50 mcg PO DAILY #30 tab 07/13/18 Maternal Family History: Family History (Last Reviewed 06/13/18 @ 09:12 by Mile Healy) Mother Psychiatric disorder Thyroid disorder Father Hyperlipidemia Hypertension Father Heart disease Aunt Seizures Grandmother Cancer Colon cancer Grandfather Diabetes Heart disease Family History: - - Thyroid disease, psychiatric disorder. Paternal Family History: Family History (Last Reviewed 06/13/18 @ 09:12 by Mile Healy) Mother Psychiatric disorder Thyroid disorder Father Hyperlipidemia Hypertension Father Heart disease Aunt Seizures Grandmother Cancer Colon cancer Grandfather Diabetes Heart disease Family History: Heart Disease, Hypertension Lives: Spouse/ Significant Other Smoking Status: Former smoker Tobacco Use: Non-smoker Alcohol: None Drugs: None Physical Exam Vital Signs Temp Pulse Resp BP 98.1 F 111 H 18 148/83 H 07/15/18 12:20 07/15/18 12:20 07/15/18 12:20 07/15/18 12:20 General: Alert, Oriented x3, Cooperative, No apparent distress Psych/Mental Status: Normal Affect, Appropriate Assessment/Plan Active Problems (Last Updated 07/11/18 @ 10:50 by Leeann Pandey) Radiation skin ulcer of chest (Chronic) nonhealing painful radiation ulcer left breast mastectomy Open wound of left breast with complication (Acute) Late effect of radiation (Acute) late effect radiation left breast Other specified complications of surgical and medical care, not elsewhere classified, subsequent encounter (Acute) post-lumpectomy seroma ulcer left lateral breast Cancer of left female breast (Chronic) She is tolerating hyperbaric oxygen therapy well. Continue with the patient's medical treatment plan.
[2018-07-18 12:14] VITALS: BP 128/80; BP 130/76; PULSE 122; PULSE 82; RESP 16; TEMP 36.6
== END 2018-07-17 23:59 ==
LOC: WC 12:00
PROVIDERS: Family Provider Family Medicine; PCP Family Medicine; Visit Provider Surgery
DX: L59.8 Other specified disorders of the skin and subcutaneous tissue related to radiation (principal); Y84.2 Radiological procedure and radiotherapy as the cause of abnormal reaction of the patient, or of later complication, without mention of misadventure at the time of the procedure; Z85.3 Personal history of malignant neoplasm of breast; G47.33 Obstructive sleep apnea (adult) (pediatric); E03.9 Hypothyroidism, unspecified; K76.0 Fatty (change of) liver, not elsewhere classified; Z87.891 Personal history of nicotine dependence; G89.29 Other chronic pain; G47.419 Narcolepsy without cataplexy; F41.9 Anxiety disorder, unspecified; F32.9 Major depressive disorder, single episode, unspecified
CPT/HCPCS: 99183; 99213; G0277; G0463

== ENCOUNTER 2018-08-11 10:00 | Outpatient (RCR) | payer BC, SELFPAY ==
[2017-09-29 13:07] VITALS: BMI 36.4
[2018-07-18 00:46] VITALS: BP 142/69; PULSE 82; RESP 16; TEMP 36.5
--- NOTE | 2018-07-18 14:43 | PCM.HBO.PN ---
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 Progress: The session represents the 17th such session of hyperbaric oxygen therapy. The patient appears to be tolerating well. Tolerance of hyperbaric oxygen therapy: Hyperbaric oxygen therapy was administered as per the facility's protocol. Patient tolerated hyperbaric oxygen therapy well, without complaints or complications. Upon emergence from the hyperbaric chamber, the patient's vital signs remained stable. The patient was discharged in good condition. 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 Anemia (Chronic) Intermittent epigastric abdominal pain (Chronic) Personal history of malignant neoplasm of breast (Chronic) Cancer of left female breast (Chronic) Fatty liver (Chronic) STEVE (obstructive sleep apnea) (Chronic) Chronic back pain (Chronic) Hypothyroidism (Chronic) Narcolepsy (Chronic) Anxiety and depression (Chronic) Allergies/Adverse Reactions: Allergies hydromorphone [From Dilaudid] Allergy (Severe, Verified 07/13/18 14:25) Laryngospasms morphine Allergy (Severe, Verified 07/13/18 14:25) chest tightening TAPE Adverse Reaction (Mild, Uncoded 07/13/18 14:25) Other Home Medications: Ambulatory Orders Medication Instructions Recorded Diazepam [Valium] 5 mg PO 4X/DAY PRN PRN #30 tab 06/26/18 Ondansetron HCl [Zofran] 8 mg PO TID PRN PRN #30 tab 06/26/18 Oxycodone HCl/Acetaminophen 1 - 2 tab PO 4X/DAY PRN PRN 7 Days 06/26/18 [Percocet 5/325] #60 tab levoFLOXacin tablet [Levaquin 500 mg PO DAILY #14 tab 06/26/18 tablet] Albuterol Inhaler [Ventolin Hfa 1 - 2 puff INHALATION Q4H PRN PRN 07/11/18 (SP)] Metronidazole [Flagyl] 500 mg PO Q8H 07/11/18 levothyroxine 50 mcg tablet 50 mcg PO DAILY #30 tab 07/13/18 Maternal Family History: Family History (Last Reviewed 06/13/18 @ 09:12 by Mile Healy) Mother Psychiatric disorder Thyroid disorder Father Hyperlipidemia Hypertension Father Heart disease Aunt Seizures Grandmother Cancer Colon cancer Grandfather Diabetes Heart disease Family History: - - Thyroid disease, psychiatric disorder. Paternal Family History: Family History (Last Reviewed 06/13/18 @ 09:12 by Mile Healy) Mother Psychiatric disorder Thyroid disorder Father Hyperlipidemia Hypertension Father Heart disease Aunt Seizures Grandmother Cancer Colon cancer Grandfather Diabetes Heart disease Family History: Heart Disease, Hypertension Smoking Status: Former smoker Tobacco Use: Non-smoker Physical Exam Vital Signs Temp Pulse Resp BP 97.7 F L 82 16 142/69 H 07/18/18 00:46 07/18/18 00:46 07/18/18 00:46 07/18/18 00:46 General: Alert, Oriented x3, Cooperative, No apparent distress, Well developed, Well nourished HEENT: Atraumatic, PERRLA, EOMI, Normocephalic Lungs: Normal air movement Psych/Mental Status: Normal Affect, Appropriate, Alert and oriented to time, place, person, mood and affect Assessment/Plan The patient appears to be tolerating hyperbaric oxygen therapy well, which will be continued as per the patient's medical plan.
--- NOTE | 2018-07-19 12:29 | PCM.HBO.PN ---
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 Progress: The session represents the 18th such session of hyperbaric oxygen therapy. The patient appears to be tolerating well. Tolerance of hyperbaric oxygen therapy: Hyperbaric oxygen therapy was administered as per the facility's protocol. Patient tolerated hyperbaric oxygen therapy well, without complaints or complications. Upon emergence from the hyperbaric chamber, the patient's vital signs remained stable. The patient was discharged in good condition. 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 Anemia (Chronic) Intermittent epigastric abdominal pain (Chronic) Personal history of malignant neoplasm of breast (Chronic) Cancer of left female breast (Chronic) Fatty liver (Chronic) STEVE (obstructive sleep apnea) (Chronic) Chronic back pain (Chronic) Hypothyroidism (Chronic) Narcolepsy (Chronic) Anxiety and depression (Chronic) Allergies/Adverse Reactions: Allergies hydromorphone [From Dilaudid] Allergy (Severe, Verified 07/13/18 14:25) Laryngospasms morphine Allergy (Severe, Verified 07/13/18 14:25) chest tightening TAPE Adverse Reaction (Mild, Uncoded 07/13/18 14:25) Other Home Medications: Ambulatory Orders Medication Instructions Recorded Diazepam [Valium] 5 mg PO 4X/DAY PRN PRN #30 tab 06/26/18 Ondansetron HCl [Zofran] 8 mg PO TID PRN PRN #30 tab 06/26/18 Oxycodone HCl/Acetaminophen 1 - 2 tab PO 4X/DAY PRN PRN 7 Days 06/26/18 [Percocet 5/325] #60 tab levoFLOXacin tablet [Levaquin 500 mg PO DAILY #14 tab 06/26/18 tablet] Albuterol Inhaler [Ventolin Hfa 1 - 2 puff INHALATION Q4H PRN PRN 07/11/18 (SP)] Metronidazole [Flagyl] 500 mg PO Q8H 07/11/18 levothyroxine 50 mcg tablet 50 mcg PO DAILY #30 tab 07/13/18 Maternal Family History: Family History (Last Reviewed 06/13/18 @ 09:12 by Mile Healy) Mother Psychiatric disorder Thyroid disorder Father Hyperlipidemia Hypertension Father Heart disease Aunt Seizures Grandmother Cancer Colon cancer Grandfather Diabetes Heart disease Family History: - - Thyroid disease, psychiatric disorder. Paternal Family History: Family History (Last Reviewed 06/13/18 @ 09:12 by Mile Healy) Mother Psychiatric disorder Thyroid disorder Father Hyperlipidemia Hypertension Father Heart disease Aunt Seizures Grandmother Cancer Colon cancer Grandfather Diabetes Heart disease Family History: Heart Disease, Hypertension Smoking Status: Former smoker Tobacco Use: Non-smoker Physical Exam Vital Signs Temp Pulse Resp BP 97.7 F L 82 16 142/69 H 07/18/18 00:46 07/18/18 00:46 07/18/18 00:46 07/18/18 00:46 General: Alert, Oriented x3, Cooperative, No apparent distress HEENT: Atraumatic, TM's Clear - left clear, right with old red drainage, follows with ENT 07/20/18 Lungs: Clear to auscultation, Normal air movement, No rhonchi, No wheeze, No rales Cardiovascular: Regular rate, Regular Rhythm, Normal S1, Normal S2, No murmurs Psych/Mental Status: Normal Affect, Appropriate, Alert and oriented to time, place, person, mood and affect Assessment/Plan The patient appears to be tolerating hyperbaric oxygen therapy well, which will be continued as per the patient's medical plan.
[2018-07-19 12:33] VITALS: BP 123/92; PULSE 112; RESP 18; TEMP 36.8
[2018-07-20 12:17] VITALS: BP 134/79; BP 172/92; PULSE 119; PULSE 88; RESP 16; TEMP 36.5; TEMP 36.9
--- NOTE | 2018-07-20 13:38 | PCM.HBO.PN ---
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 Progress: The session represents the 19th such session of hyperbaric oxygen therapy. The patient appears to be tolerating well. Tolerance of hyperbaric oxygen therapy: Hyperbaric oxygen therapy was administered as per the facility's protocol. Patient tolerated hyperbaric oxygen therapy well, without complaints or complications. Upon emergence from the hyperbaric chamber, the patient's vital signs remained stable. The patient was discharged in good condition. 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 Anemia (Chronic) Intermittent epigastric abdominal pain (Chronic) Personal history of malignant neoplasm of breast (Chronic) Cancer of left female breast (Chronic) Fatty liver (Chronic) STEVE (obstructive sleep apnea) (Chronic) Chronic back pain (Chronic) Hypothyroidism (Chronic) Narcolepsy (Chronic) Anxiety and depression (Chronic) Allergies/Adverse Reactions: Allergies hydromorphone [From Dilaudid] Allergy (Severe, Verified 07/20/18 10:08) Laryngospasms morphine Allergy (Severe, Verified 07/20/18 10:08) chest tightening TAPE Adverse Reaction (Mild, Uncoded 07/20/18 10:08) Other Home Medications: Ambulatory Orders Medication Instructions Recorded Diazepam [Valium] 5 mg PO 4X/DAY PRN PRN #30 tab 06/26/18 Ondansetron HCl [Zofran] 8 mg PO TID PRN PRN #30 tab 06/26/18 Oxycodone HCl/Acetaminophen 1 - 2 tab PO 4X/DAY PRN PRN 7 Days 06/26/18 [Percocet 5/325] #60 tab levoFLOXacin tablet [Levaquin 500 mg PO DAILY #14 tab 06/26/18 tablet] Albuterol Inhaler [Ventolin Hfa 1 - 2 puff INHALATION Q4H PRN PRN 07/11/18 (SP)] Metronidazole [Flagyl] 500 mg PO Q8H 07/11/18 levothyroxine 50 mcg tablet 50 mcg PO DAILY #30 tab 07/13/18 Maternal Family History: Family History (Last Reviewed 06/13/18 @ 09:12 by Mile Healy) Mother Psychiatric disorder Thyroid disorder Father Hyperlipidemia Hypertension Father Heart disease Aunt Seizures Grandmother Cancer Colon cancer Grandfather Diabetes Heart disease Family History: - - Thyroid disease, psychiatric disorder. Paternal Family History: Family History (Last Reviewed 06/13/18 @ 09:12 by Mile Healy) Mother Psychiatric disorder Thyroid disorder Father Hyperlipidemia Hypertension Father Heart disease Aunt Seizures Grandmother Cancer Colon cancer Grandfather Diabetes Heart disease Family History: Heart Disease, Hypertension Smoking Status: Former smoker Tobacco Use: Non-smoker Physical Exam Vital Signs Temp Pulse Resp BP 98.4 F 119 H 16 172/92 H 07/20/18 12:17 07/20/18 12:17 07/20/18 12:17 07/20/18 12:17 General: Alert, Oriented x3, Cooperative, No apparent distress HEENT: Atraumatic, TM's Clear Lungs: Clear to auscultation, Normal air movement, No rhonchi, No wheeze, No rales Cardiovascular: Regular rate, Regular Rhythm, Normal S1, Normal S2, No murmurs Psych/Mental Status: Normal Affect, Appropriate, Alert and oriented to time, place, person, mood and affect Assessment/Plan The patient appears to be tolerating hyperbaric oxygen therapy well, which will be continued as per the patient's medical plan.
--- NOTE | 2018-07-21 14:17 | PCM.HBO.PN ---
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 Progress: The session represents the 20th such session of hyperbaric oxygen therapy. The patient appears to be tolerating well. Tolerance of hyperbaric oxygen therapy: Hyperbaric oxygen therapy was administered as per the facility's protocol. Patient tolerated hyperbaric oxygen therapy well, without complaints or complications. Upon emergence from the hyperbaric chamber, the patient's vital signs remained stable. The patient was discharged in good condition. 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 Anemia (Chronic) Intermittent epigastric abdominal pain (Chronic) Personal history of malignant neoplasm of breast (Chronic) Cancer of left female breast (Chronic) Fatty liver (Chronic) STEVE (obstructive sleep apnea) (Chronic) Chronic back pain (Chronic) Hypothyroidism (Chronic) Narcolepsy (Chronic) Anxiety and depression (Chronic) Allergies/Adverse Reactions: Allergies hydromorphone [From Dilaudid] Allergy (Severe, Verified 07/20/18 10:08) Laryngospasms morphine Allergy (Severe, Verified 07/20/18 10:08) chest tightening TAPE Adverse Reaction (Mild, Uncoded 07/20/18 10:08) Other Home Medications: Ambulatory Orders Medication Instructions Recorded Diazepam [Valium] 5 mg PO 4X/DAY PRN PRN #30 tab 06/26/18 Ondansetron HCl [Zofran] 8 mg PO TID PRN PRN #30 tab 06/26/18 Oxycodone HCl/Acetaminophen 1 - 2 tab PO 4X/DAY PRN PRN 7 Days 06/26/18 [Percocet 5/325] #60 tab levoFLOXacin tablet [Levaquin 500 mg PO DAILY #14 tab 06/26/18 tablet] Albuterol Inhaler [Ventolin Hfa 1 - 2 puff INHALATION Q4H PRN PRN 07/11/18 (SP)] Metronidazole [Flagyl] 500 mg PO Q8H 07/11/18 levothyroxine 50 mcg tablet 50 mcg PO DAILY #30 tab 07/13/18 Maternal Family History: Family History (Last Reviewed 06/13/18 @ 09:12 by Mile Healy) Mother Psychiatric disorder Thyroid disorder Father Hyperlipidemia Hypertension Father Heart disease Aunt Seizures Grandmother Cancer Colon cancer Grandfather Diabetes Heart disease Family History: - - Thyroid disease, psychiatric disorder. Paternal Family History: Family History (Last Reviewed 06/13/18 @ 09:12 by Mile Healy) Mother Psychiatric disorder Thyroid disorder Father Hyperlipidemia Hypertension Father Heart disease Aunt Seizures Grandmother Cancer Colon cancer Grandfather Diabetes Heart disease Family History: Heart Disease, Hypertension Smoking Status: Former smoker Tobacco Use: Non-smoker Physical Exam Vital Signs Temp Pulse Resp BP 98.4 F 119 H 16 172/92 H 07/20/18 12:17 07/20/18 12:17 07/20/18 12:17 07/20/18 12:17 General: Alert, Oriented x3, Cooperative, No apparent distress HEENT: Atraumatic, TM's Clear Lungs: Clear to auscultation, Normal air movement, No rhonchi, No wheeze, No rales Cardiovascular: Regular rate, Regular Rhythm, Normal S1, Normal S2, No murmurs Psych/Mental Status: Normal Affect, Appropriate, Alert and oriented to time, place, person, mood and affect Assessment/Plan The patient appears to be tolerating hyperbaric oxygen therapy well, which will be continued as per the patient's medical plan.
[2018-07-21 14:54] VITALS: BP 121/79; BP 130/88; PULSE 115; PULSE 87; RESP 16; RESP 18; TEMP 36.2; TEMP 36.6
[2018-07-27 10:42] VITALS: BP 125/84; BP 129/78; PULSE 103; PULSE 72; RESP 16; TEMP 36.6; TEMP 36.7
--- NOTE | 2018-07-27 16:52 | PCM.HBO.PN ---
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 Progress: The session represents the 21th such session of hyperbaric oxygen therapy. The patient appears to be tolerating well. Tolerance of hyperbaric oxygen therapy: Hyperbaric oxygen therapy was administered as per the facility's protocol. Patient tolerated hyperbaric oxygen therapy well, without complaints or complications. Upon emergence from the hyperbaric chamber, the patient's vital signs remained stable. The patient was discharged in good condition. 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 Anemia (Chronic) Intermittent epigastric abdominal pain (Chronic) Personal history of malignant neoplasm of breast (Chronic) Cancer of left female breast (Chronic) Fatty liver (Chronic) STEVE (obstructive sleep apnea) (Chronic) Chronic back pain (Chronic) Hypothyroidism (Chronic) Narcolepsy (Chronic) Anxiety and depression (Chronic) Allergies/Adverse Reactions: Allergies hydromorphone [From Dilaudid] Allergy (Severe, Verified 07/20/18 10:08) Laryngospasms morphine Allergy (Severe, Verified 07/20/18 10:08) chest tightening TAPE Adverse Reaction (Mild, Uncoded 07/20/18 10:08) Other Home Medications: Ambulatory Orders Medication Instructions Recorded Diazepam [Valium] 5 mg PO 4X/DAY PRN PRN #30 tab 06/26/18 Ondansetron HCl [Zofran] 8 mg PO TID PRN PRN #30 tab 06/26/18 Oxycodone HCl/Acetaminophen 1 - 2 tab PO 4X/DAY PRN PRN 7 Days 06/26/18 [Percocet 5/325] #60 tab levoFLOXacin tablet [Levaquin 500 mg PO DAILY #14 tab 06/26/18 tablet] Albuterol Inhaler [Ventolin Hfa 1 - 2 puff INHALATION Q4H PRN PRN 07/11/18 (SP)] Metronidazole [Flagyl] 500 mg PO Q8H 07/11/18 levothyroxine 50 mcg tablet 50 mcg PO DAILY #30 tab 07/13/18 Maternal Family History: Family History (Last Reviewed 06/13/18 @ 09:12 by Mile Healy) Mother Psychiatric disorder Thyroid disorder Father Hyperlipidemia Hypertension Father Heart disease Aunt Seizures Grandmother Cancer Colon cancer Grandfather Diabetes Heart disease Family History: - - Thyroid disease, psychiatric disorder. Paternal Family History: Family History (Last Reviewed 06/13/18 @ 09:12 by Mile Healy) Mother Psychiatric disorder Thyroid disorder Father Hyperlipidemia Hypertension Father Heart disease Aunt Seizures Grandmother Cancer Colon cancer Grandfather Diabetes Heart disease Family History: Heart Disease, Hypertension Smoking Status: Former smoker Tobacco Use: Non-smoker Physical Exam Vital Signs Temp Pulse Resp BP 98.0 F 103 H 16 129/78 H 07/27/18 10:42 07/27/18 10:42 07/27/18 10:42 07/27/18 10:42 General: Alert, Cooperative HEENT: Atraumatic Lungs: Normal air movement Psych/Mental Status: Normal Affect Assessment/Plan The patient appears to be tolerating hyperbaric oxygen therapy well, which will be continued as per the patient's medical plan.
[2018-07-28 10:09] VITALS: BP 145/88; PULSE 94; RESP 16; TEMP 36.6
--- NOTE | 2018-07-28 11:43 | PCM.HBO.PN ---
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 Progress: The session represents the 22nd such session of hyperbaric oxygen therapy. The patient appears to be tolerating well. Tolerance of hyperbaric oxygen therapy: Hyperbaric oxygen therapy was administered as per the facility's protocol. Patient tolerated hyperbaric oxygen therapy well, without complaints or complications. Upon emergence from the hyperbaric chamber, the patient's vital signs remained stable. The patient was discharged in good condition. 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 Anemia (Chronic) Intermittent epigastric abdominal pain (Chronic) Personal history of malignant neoplasm of breast (Chronic) Cancer of left female breast (Chronic) Fatty liver (Chronic) STEVE (obstructive sleep apnea) (Chronic) Chronic back pain (Chronic) Hypothyroidism (Chronic) Narcolepsy (Chronic) Anxiety and depression (Chronic) Allergies/Adverse Reactions: Allergies hydromorphone [From Dilaudid] Allergy (Severe, Verified 07/20/18 10:08) Laryngospasms morphine Allergy (Severe, Verified 07/20/18 10:08) chest tightening TAPE Adverse Reaction (Mild, Uncoded 07/20/18 10:08) Other Home Medications: Ambulatory Orders Medication Instructions Recorded Diazepam [Valium] 5 mg PO 4X/DAY PRN PRN #30 tab 06/26/18 Ondansetron HCl [Zofran] 8 mg PO TID PRN PRN #30 tab 06/26/18 Oxycodone HCl/Acetaminophen 1 - 2 tab PO 4X/DAY PRN PRN 7 Days 06/26/18 [Percocet 5/325] #60 tab levoFLOXacin tablet [Levaquin 500 mg PO DAILY #14 tab 06/26/18 tablet] Albuterol Inhaler [Ventolin Hfa 1 - 2 puff INHALATION Q4H PRN PRN 07/11/18 (SP)] Metronidazole [Flagyl] 500 mg PO Q8H 07/11/18 levothyroxine 50 mcg tablet 50 mcg PO DAILY #30 tab 07/13/18 Maternal Family History: Family History (Last Reviewed 06/13/18 @ 09:12 by Mile Healy) Mother Psychiatric disorder Thyroid disorder Father Hyperlipidemia Hypertension Father Heart disease Aunt Seizures Grandmother Cancer Colon cancer Grandfather Diabetes Heart disease Family History: - - Thyroid disease, psychiatric disorder. Paternal Family History: Family History (Last Reviewed 06/13/18 @ 09:12 by Mile Healy) Mother Psychiatric disorder Thyroid disorder Father Hyperlipidemia Hypertension Father Heart disease Aunt Seizures Grandmother Cancer Colon cancer Grandfather Diabetes Heart disease Family History: Heart Disease, Hypertension Smoking Status: Former smoker Tobacco Use: Non-smoker Physical Exam Vital Signs Temp Pulse Resp BP 97.8 F 94 16 145/88 H 07/28/18 10:09 07/28/18 10:09 07/28/18 10:09 07/28/18 10:09 General: Alert, Oriented x3, Cooperative, No apparent distress HEENT: Atraumatic Lungs: Normal air movement Psych/Mental Status: Normal Affect Assessment/Plan The patient appears to be tolerating hyperbaric oxygen therapy well, which will be continued as per the patient's medical plan.
[2018-07-29 10:15] VITALS: BP 145/83; BP 145/99; PULSE 67; PULSE 99; RESP 16; TEMP 36.2; TEMP 36.3
--- NOTE | 2018-07-29 12:28 | PCM.HBO.PN ---
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 Progress: The session represents the 23nd such session of hyperbaric oxygen therapy. The patient appears to be tolerating well. Tolerance of hyperbaric oxygen therapy: Hyperbaric oxygen therapy was administered as per the facility's protocol. Patient tolerated hyperbaric oxygen therapy well, without complaints or complications. Upon emergence from the hyperbaric chamber, the patient's vital signs remained stable. The patient was discharged in good condition. 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 Anemia (Chronic) Intermittent epigastric abdominal pain (Chronic) Personal history of malignant neoplasm of breast (Chronic) Cancer of left female breast (Chronic) Fatty liver (Chronic) STEVE (obstructive sleep apnea) (Chronic) Chronic back pain (Chronic) Hypothyroidism (Chronic) Narcolepsy (Chronic) Anxiety and depression (Chronic) Allergies/Adverse Reactions: Allergies hydromorphone [From Dilaudid] Allergy (Severe, Verified 07/20/18 10:08) Laryngospasms morphine Allergy (Severe, Verified 07/20/18 10:08) chest tightening TAPE Adverse Reaction (Mild, Uncoded 07/20/18 10:08) Other Home Medications: Ambulatory Orders Medication Instructions Recorded Diazepam [Valium] 5 mg PO 4X/DAY PRN PRN #30 tab 06/26/18 Ondansetron HCl [Zofran] 8 mg PO TID PRN PRN #30 tab 06/26/18 Oxycodone HCl/Acetaminophen 1 - 2 tab PO 4X/DAY PRN PRN 7 Days 06/26/18 [Percocet 5/325] #60 tab levoFLOXacin tablet [Levaquin 500 mg PO DAILY #14 tab 06/26/18 tablet] Albuterol Inhaler [Ventolin Hfa 1 - 2 puff INHALATION Q4H PRN PRN 07/11/18 (SP)] Metronidazole [Flagyl] 500 mg PO Q8H 07/11/18 levothyroxine 50 mcg tablet 50 mcg PO DAILY #30 tab 07/13/18 Maternal Family History: Family History (Last Reviewed 06/13/18 @ 09:12 by Mile Healy) Mother Psychiatric disorder Thyroid disorder Father Hyperlipidemia Hypertension Father Heart disease Aunt Seizures Grandmother Cancer Colon cancer Grandfather Diabetes Heart disease Family History: - - Thyroid disease, psychiatric disorder. Paternal Family History: Family History (Last Reviewed 06/13/18 @ 09:12 by Mile Healy) Mother Psychiatric disorder Thyroid disorder Father Hyperlipidemia Hypertension Father Heart disease Aunt Seizures Grandmother Cancer Colon cancer Grandfather Diabetes Heart disease Family History: Heart Disease, Hypertension Smoking Status: Former smoker Tobacco Use: Non-smoker Physical Exam Vital Signs Temp Pulse Resp BP 97.3 F L 99 16 145/83 H 07/29/18 10:15 07/29/18 10:15 07/29/18 10:15 07/29/18 10:15 Assessment/Plan The patient appears to be tolerating hyperbaric oxygen therapy well, which will be continued as per the patient's medical plan.
[2018-08-01 09:43] VITALS: BP 140/76; BP 143/100; PULSE 110; PULSE 79; RESP 16; RESP 18; TEMP 36.1; TEMP 36.6
[2018-08-02 10:04] VITALS: BP 135/89; PULSE 99; RESP 16; TEMP 36.3
--- NOTE | 2018-08-02 10:59 | PCM.HBO.PN ---
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 Progress: The session represents the 24nd such session of hyperbaric oxygen therapy. The patient appears to be tolerating well. Tolerance of hyperbaric oxygen therapy: Hyperbaric oxygen therapy was administered as per the facility's protocol. Patient tolerated hyperbaric oxygen therapy well, without complaints or complications. Upon emergence from the hyperbaric chamber, the patient's vital signs remained stable. The patient was discharged in good condition. 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 Anemia (Chronic) Intermittent epigastric abdominal pain (Chronic) Personal history of malignant neoplasm of breast (Chronic) Cancer of left female breast (Chronic) Fatty liver (Chronic) STEVE (obstructive sleep apnea) (Chronic) Chronic back pain (Chronic) Hypothyroidism (Chronic) Narcolepsy (Chronic) Anxiety and depression (Chronic) Allergies/Adverse Reactions: Allergies hydromorphone [From Dilaudid] Allergy (Severe, Verified 07/20/18 10:08) Laryngospasms morphine Allergy (Severe, Verified 07/20/18 10:08) chest tightening TAPE Adverse Reaction (Mild, Uncoded 07/20/18 10:08) Other Home Medications: Ambulatory Orders Medication Instructions Recorded Diazepam [Valium] 5 mg PO 4X/DAY PRN PRN #30 tab 06/26/18 Ondansetron HCl [Zofran] 8 mg PO TID PRN PRN #30 tab 06/26/18 Oxycodone HCl/Acetaminophen 1 - 2 tab PO 4X/DAY PRN PRN 7 Days 06/26/18 [Percocet 5/325] #60 tab levoFLOXacin tablet [Levaquin 500 mg PO DAILY #14 tab 06/26/18 tablet] Albuterol Inhaler [Ventolin Hfa 1 - 2 puff INHALATION Q4H PRN PRN 09/24/18 (SP)] Metronidazole [Flagyl] 500 mg PO Q8H 07/11/18 levothyroxine 50 mcg tablet 50 mcg PO DAILY #30 tab 07/13/18 Maternal Family History: Family History (Last Reviewed 06/13/18 @ 09:12 by Mile Healy) Mother Psychiatric disorder Thyroid disorder Father Hyperlipidemia Hypertension Father Heart disease Aunt Seizures Grandmother Cancer Colon cancer Grandfather Diabetes Heart disease Family History: - - Thyroid disease, psychiatric disorder. Paternal Family History: Family History (Last Reviewed 06/13/18 @ 09:12 by Mile Healy) Mother Psychiatric disorder Thyroid disorder Father Hyperlipidemia Hypertension Father Heart disease Aunt Seizures Grandmother Cancer Colon cancer Grandfather Diabetes Heart disease Family History: Heart Disease, Hypertension Smoking Status: Former smoker Tobacco Use: Non-smoker Physical Exam Vital Signs Temp Pulse Resp BP 97.4 F L 99 16 135/89 H 08/02/18 10:04 08/02/18 10:04 08/02/18 10:04 08/02/18 10:04 General: Alert, Oriented x3, Cooperative HEENT: Atraumatic, TM's Clear - TM's with tubes present bilaterally. Lungs: Clear to auscultation, Normal air movement Cardiovascular: Regular rate, Regular Rhythm Psych/Mental Status: Normal Affect, Appropriate Assessment/Plan The patient appears to be tolerating hyperbaric oxygen therapy well, which will be continued as per the patient's medical plan.
--- NOTE | 2018-08-02 12:58 | PCM.HBO.PN ---
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 Progress: The session represents the 25th such session of hyperbaric oxygen therapy. The patient appears to be tolerating well. Tolerance of hyperbaric oxygen therapy: Hyperbaric oxygen therapy was administered as per the facility's protocol. Patient tolerated hyperbaric oxygen therapy well, without complaints or complications. Upon emergence from the hyperbaric chamber, the patient's vital signs remained stable. The patient was discharged in good condition. 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 Anemia (Chronic) Intermittent epigastric abdominal pain (Chronic) Personal history of malignant neoplasm of breast (Chronic) Cancer of left female breast (Chronic) Fatty liver (Chronic) STEVE (obstructive sleep apnea) (Chronic) Chronic back pain (Chronic) Hypothyroidism (Chronic) Narcolepsy (Chronic) Anxiety and depression (Chronic) Allergies/Adverse Reactions: Allergies hydromorphone [From Dilaudid] Allergy (Severe, Verified 07/20/18 10:08) Laryngospasms morphine Allergy (Severe, Verified 07/20/18 10:08) chest tightening TAPE Adverse Reaction (Mild, Uncoded 07/20/18 10:08) Other Home Medications: Ambulatory Orders Medication Instructions Recorded Diazepam [Valium] 5 mg PO 4X/DAY PRN PRN #30 tab 06/26/18 Ondansetron HCl [Zofran] 8 mg PO TID PRN PRN #30 tab 06/26/18 Oxycodone HCl/Acetaminophen 1 - 2 tab PO 4X/DAY PRN PRN 7 Days 06/26/18 [Percocet 5/325] #60 tab levoFLOXacin tablet [Levaquin 500 mg PO DAILY #14 tab 06/26/18 tablet] Albuterol Inhaler [Ventolin Hfa 1 - 2 puff INHALATION Q4H PRN PRN 07/11/18 (SP)] Metronidazole [Flagyl] 500 mg PO Q8H 07/11/18 levothyroxine 50 mcg tablet 50 mcg PO DAILY #30 tab 07/13/18 Maternal Family History: Family History (Last Reviewed 06/13/18 @ 09:12 by Mile Healy) Mother Psychiatric disorder Thyroid disorder Father Hyperlipidemia Hypertension Father Heart disease Aunt Seizures Grandmother Cancer Colon cancer Grandfather Diabetes Heart disease Family History: - - Thyroid disease, psychiatric disorder. Paternal Family History: Family History (Last Reviewed 06/13/18 @ 09:12 by Mile Healy) Mother Psychiatric disorder Thyroid disorder Father Hyperlipidemia Hypertension Father Heart disease Aunt Seizures Grandmother Cancer Colon cancer Grandfather Diabetes Heart disease Family History: Heart Disease, Hypertension Smoking Status: Former smoker Tobacco Use: Non-smoker Physical Exam Vital Signs Temp Pulse Resp BP 97.4 F L 99 16 135/89 H 08/02/18 10:04 08/02/18 10:04 08/02/18 10:04 08/02/18 10:04 General: Alert, Oriented x3, Cooperative, No apparent distress, Well developed, Well nourished HEENT: Atraumatic, PERRLA, EOMI, Normocephalic Lungs: Normal air movement Psych/Mental Status: Normal Affect, Appropriate, Alert and oriented to time, place, person, mood and affect Assessment/Plan The patient appears to be tolerating hyperbaric oxygen therapy well, which will be continued as per the patient's medical plan.
[2018-08-04 10:16] VITALS: BP 138/93; BP 151/96; PULSE 81; PULSE 91; RESP 16; TEMP 35.9; TEMP 36.3
--- NOTE | 2018-08-04 10:35 | PCM.HBO.PN ---
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 Progress: The session represents the 26th such session of hyperbaric oxygen therapy. The patient appears to be tolerating well. Tolerance of hyperbaric oxygen therapy: Hyperbaric oxygen therapy was administered as per the facility's protocol. Patient tolerated hyperbaric oxygen therapy well, without complaints or complications. Upon emergence from the hyperbaric chamber, the patient's vital signs remained stable. The patient was discharged in good condition. 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 Chronic serous otitis media of both ears (Chronic) Radiation skin ulcer of chest (Chronic) nonhealing painful radiation ulcer left breast mastectomy Anemia (Chronic) Intermittent epigastric abdominal pain (Chronic) Personal history of malignant neoplasm of breast (Chronic) Cancer of left female breast (Chronic) Fatty liver (Chronic) STEVE (obstructive sleep apnea) (Chronic) Chronic back pain (Chronic) Hypothyroidism (Chronic) Narcolepsy (Chronic) Anxiety and depression (Chronic) Allergies/Adverse Reactions: Allergies hydromorphone [From Dilaudid] Allergy (Severe, Verified 08/03/18 09:27) Laryngospasms morphine Allergy (Severe, Verified 08/03/18 09:27) chest tightening TAPE Adverse Reaction (Mild, Uncoded 08/03/18 09:27) Other Home Medications: Ambulatory Orders Medication Instructions Recorded Diazepam [Valium] 5 mg PO 4X/DAY PRN PRN #30 tab 06/26/18 Ondansetron HCl [Zofran] 8 mg PO TID PRN PRN #30 tab 06/26/18 Oxycodone HCl/Acetaminophen 1 - 2 tab PO 4X/DAY PRN PRN 7 Days 06/26/18 [Percocet 5/325] #60 tab levoFLOXacin tablet [Levaquin 500 mg PO DAILY #14 tab 06/26/18 tablet] Albuterol Inhaler [Ventolin Hfa 1 - 2 puff INHALATION Q4H PRN PRN 07/11/18 (SP)] Metronidazole [Flagyl] 500 mg PO Q8H 07/11/18 levothyroxine 50 mcg tablet 50 mcg PO DAILY #30 tab 07/13/18 Maternal Family History: Family History (Last Reviewed 06/13/18 @ 09:12 by Mile Healy) Mother Psychiatric disorder Thyroid disorder Father Hyperlipidemia Hypertension Father Heart disease Aunt Seizures Grandmother Cancer Colon cancer Grandfather Diabetes Heart disease Family History: - - Thyroid disease, psychiatric disorder. Paternal Family History: Family History (Last Reviewed 06/13/18 @ 09:12 by Mile Healy) Mother Psychiatric disorder Thyroid disorder Father Hyperlipidemia Hypertension Father Heart disease Aunt Seizures Grandmother Cancer Colon cancer Grandfather Diabetes Heart disease Family History: Heart Disease, Hypertension Smoking Status: Former smoker Tobacco Use: Non-smoker Physical Exam Vital Signs Temp Pulse Resp BP 96.7 F L 91 16 138/93 H 08/04/18 10:16 08/04/18 10:16 08/04/18 10:16 08/04/18 10:16 General: Alert, Oriented x3, Cooperative, No apparent distress HEENT: Atraumatic, - - bilateral cerumen Lungs: Clear to auscultation, Normal air movement, No rhonchi, No wheeze, No rales Cardiovascular: Regular rate, Regular Rhythm, Normal S1, Normal S2, No murmurs Psych/Mental Status: Normal Affect, Appropriate, Alert and oriented to time, place, person, mood and affect Assessment/Plan The patient appears to be tolerating hyperbaric oxygen therapy well, which will be continued as per the patient's medical plan.
[2018-08-05 10:30] VITALS: BP 136/95; BP 149/95; PULSE 83; PULSE 87; RESP 16; TEMP 36.2; TEMP 36.5
--- NOTE | 2018-08-05 11:00 | PCM.HBO.PN ---
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 Progress: The session represents the 27th such session of hyperbaric oxygen therapy. The patient appears to be tolerating well. Tolerance of hyperbaric oxygen therapy: Hyperbaric oxygen therapy was administered as per the facility's protocol. Patient tolerated hyperbaric oxygen therapy well, without complaints or complications. Upon emergence from the hyperbaric chamber, the patient's vital signs remained stable. The patient was discharged in good condition. 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 Chronic serous otitis media of both ears (Chronic) Radiation skin ulcer of chest (Chronic) nonhealing painful radiation ulcer left breast mastectomy Anemia (Chronic) Intermittent epigastric abdominal pain (Chronic) Personal history of malignant neoplasm of breast (Chronic) Cancer of left female breast (Chronic) Fatty liver (Chronic) STEVE (obstructive sleep apnea) (Chronic) Chronic back pain (Chronic) Hypothyroidism (Chronic) Narcolepsy (Chronic) Anxiety and depression (Chronic) Allergies/Adverse Reactions: Allergies hydromorphone [From Dilaudid] Allergy (Severe, Verified 08/03/18 09:27) Laryngospasms morphine Allergy (Severe, Verified 08/03/18 09:27) chest tightening TAPE Adverse Reaction (Mild, Uncoded 08/03/18 09:27) Other Home Medications: Ambulatory Orders Medication Instructions Recorded Diazepam [Valium] 5 mg PO 4X/DAY PRN PRN #30 tab 06/26/18 Ondansetron HCl [Zofran] 8 mg PO TID PRN PRN #30 tab 06/26/18 Oxycodone HCl/Acetaminophen 1 - 2 tab PO 4X/DAY PRN PRN 7 Days 06/26/18 [Percocet 5/325] #60 tab levoFLOXacin tablet [Levaquin 500 mg PO DAILY #14 tab 06/26/18 tablet] Albuterol Inhaler [Ventolin Hfa 1 - 2 puff INHALATION Q4H PRN PRN 07/11/18 (SP)] Metronidazole [Flagyl] 500 mg PO Q8H 07/11/18 levothyroxine 50 mcg tablet 50 mcg PO DAILY #30 tab 07/13/18 Maternal Family History: Family History (Last Reviewed 06/13/18 @ 09:12 by Mile Healy) Mother Psychiatric disorder Thyroid disorder Father Hyperlipidemia Hypertension Father Heart disease Aunt Seizures Grandmother Cancer Colon cancer Grandfather Diabetes Heart disease Family History: - - Thyroid disease, psychiatric disorder. Paternal Family History: Family History (Last Reviewed 06/13/18 @ 09:12 by Mile Healy) Mother Psychiatric disorder Thyroid disorder Father Hyperlipidemia Hypertension Father Heart disease Aunt Seizures Grandmother Cancer Colon cancer Grandfather Diabetes Heart disease Family History: Heart Disease, Hypertension Smoking Status: Former smoker Tobacco Use: Non-smoker Physical Exam Vital Signs Temp Pulse Resp BP 96.7 F L 91 16 138/93 H 08/04/18 10:16 08/04/18 10:16 08/04/18 10:16 08/04/18 10:16 General: Alert, Oriented x3, Cooperative, No apparent distress HEENT: Atraumatic, - - bilateral cerumen visualized Lungs: Clear to auscultation, Normal air movement, No rhonchi, No wheeze, No rales Cardiovascular: Regular rate, Regular Rhythm, Normal S1, Normal S2, No murmurs Psych/Mental Status: Normal Affect, Appropriate, Alert and oriented to time, place, person, mood and affect Assessment/Plan The patient appears to be tolerating hyperbaric oxygen therapy well, which will be continued as per the patient's medical plan.
[2018-08-09 14:08] VITALS: BP 134/74; BP 139/90; PULSE 101; PULSE 91; RESP 18; TEMP 36.3; TEMP 36.8
--- NOTE | 2018-08-09 15:23 | PCM.HBO.PN ---
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 Progress: The session represents the 29th such session of hyperbaric oxygen therapy. The patient appears to be tolerating well. Tolerance of hyperbaric oxygen therapy: Hyperbaric oxygen therapy was administered as per the facility's protocol. Patient tolerated hyperbaric oxygen therapy well, without complaints or complications. Upon emergence from the hyperbaric chamber, the patient's vital signs remained stable. The patient was discharged in good condition. 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 Chronic serous otitis media of both ears (Chronic) Radiation skin ulcer of chest (Chronic) nonhealing painful radiation ulcer left breast mastectomy Anemia (Chronic) Intermittent epigastric abdominal pain (Chronic) Personal history of malignant neoplasm of breast (Chronic) Cancer of left female breast (Chronic) Fatty liver (Chronic) STEVE (obstructive sleep apnea) (Chronic) Chronic back pain (Chronic) Hypothyroidism (Chronic) Narcolepsy (Chronic) Anxiety and depression (Chronic) Allergies/Adverse Reactions: Allergies hydromorphone [From Dilaudid] Allergy (Severe, Verified 08/03/18 09:27) Laryngospasms morphine Allergy (Severe, Verified 08/03/18 09:27) chest tightening TAPE Adverse Reaction (Mild, Uncoded 08/03/18 09:27) Other Home Medications: Ambulatory Orders Medication Instructions Recorded Diazepam [Valium] 5 mg PO 4X/DAY PRN PRN #30 tab 06/26/18 Ondansetron HCl [Zofran] 8 mg PO TID PRN PRN #30 tab 06/26/18 Oxycodone HCl/Acetaminophen 1 - 2 tab PO 4X/DAY PRN PRN 7 Days 06/26/18 [Percocet 5/325] #60 tab levoFLOXacin tablet [Levaquin 500 mg PO DAILY #14 tab 06/26/18 tablet] Albuterol Inhaler [Ventolin Hfa 1 - 2 puff INHALATION Q4H PRN PRN 07/11/18 (SP)] Metronidazole [Flagyl] 500 mg PO Q8H 07/11/18 levothyroxine 50 mcg tablet 50 mcg PO DAILY #30 tab 07/13/18 Maternal Family History: Family History (Last Reviewed 06/13/18 @ 09:12 by Mile Healy) Mother Psychiatric disorder Thyroid disorder Father Hyperlipidemia Hypertension Father Heart disease Aunt Seizures Grandmother Cancer Colon cancer Grandfather Diabetes Heart disease Family History: - - Thyroid disease, psychiatric disorder. Paternal Family History: Family History (Last Reviewed 06/13/18 @ 09:12 by Mile Healy) Mother Psychiatric disorder Thyroid disorder Father Hyperlipidemia Hypertension Father Heart disease Aunt Seizures Grandmother Cancer Colon cancer Grandfather Diabetes Heart disease Family History: Heart Disease, Hypertension Smoking Status: Former smoker Tobacco Use: Non-smoker Physical Exam Vital Signs Temp Pulse Resp BP 98.2 F 101 H 18 134/74 H 08/09/18 14:08 08/09/18 14:08 08/09/18 14:08 08/09/18 14:08 General: Alert, Oriented x3, Cooperative, No apparent distress, Well developed, Well nourished HEENT: Atraumatic, PERRLA, EOMI, Normocephalic Lungs: Normal air movement Psych/Mental Status: Normal Affect, Appropriate, Alert and oriented to time, place, person, mood and affect Assessment/Plan The patient appears to be tolerating hyperbaric oxygen therapy well, which will be continued as per the patient's medical plan.
[2018-08-11 10:14] VITALS: BP 129/83; BP 95/70; PULSE 112; PULSE 74; RESP 18; TEMP 36.4
--- NOTE | 2018-08-11 11:14 | PCM.HBO.PN ---
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 Progress: The session represents the 30th such session of hyperbaric oxygen therapy. The patient appears to be tolerating well. Tolerance of hyperbaric oxygen therapy: Hyperbaric oxygen therapy was administered as per the facility's protocol. Patient tolerated hyperbaric oxygen therapy well, without complaints or complications. Upon emergence from the hyperbaric chamber, the patient's vital signs remained stable. The patient was discharged in good condition. 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 Chronic serous otitis media of both ears (Chronic) Radiation skin ulcer of chest (Chronic) nonhealing painful radiation ulcer left breast mastectomy Anemia (Chronic) Intermittent epigastric abdominal pain (Chronic) Personal history of malignant neoplasm of breast (Chronic) Cancer of left female breast (Chronic) Fatty liver (Chronic) STEVE (obstructive sleep apnea) (Chronic) Chronic back pain (Chronic) Hypothyroidism (Chronic) Narcolepsy (Chronic) Anxiety and depression (Chronic) Allergies/Adverse Reactions: Allergies hydromorphone [From Dilaudid] Allergy (Severe, Verified 08/03/18 09:27) Laryngospasms morphine Allergy (Severe, Verified 08/03/18 09:27) chest tightening TAPE Adverse Reaction (Mild, Uncoded 08/03/18 09:27) Other Home Medications: Ambulatory Orders Medication Instructions Recorded Diazepam [Valium] 5 mg PO 4X/DAY PRN PRN #30 tab 06/26/18 Ondansetron HCl [Zofran] 8 mg PO TID PRN PRN #30 tab 06/26/18 Oxycodone HCl/Acetaminophen 1 - 2 tab PO 4X/DAY PRN PRN 7 Days 06/26/18 [Percocet 5/325] #60 tab levoFLOXacin tablet [Levaquin 500 mg PO DAILY #14 tab 06/26/18 tablet] Albuterol Inhaler [Ventolin Hfa 1 - 2 puff INHALATION Q4H PRN PRN 07/11/18 (SP)] Metronidazole [Flagyl] 500 mg PO Q8H 07/11/18 levothyroxine 50 mcg tablet 50 mcg PO DAILY #30 tab 07/13/18 Maternal Family History: Family History (Last Reviewed 06/13/18 @ 09:12 by Mile Healy) Mother Psychiatric disorder Thyroid disorder Father Hyperlipidemia Hypertension Father Heart disease Aunt Seizures Grandmother Cancer Colon cancer Grandfather Diabetes Heart disease Family History: - - Thyroid disease, psychiatric disorder. Paternal Family History: Family History (Last Reviewed 06/13/18 @ 09:12 by Mile Healy) Mother Psychiatric disorder Thyroid disorder Father Hyperlipidemia Hypertension Father Heart disease Aunt Seizures Grandmother Cancer Colon cancer Grandfather Diabetes Heart disease Family History: Heart Disease, Hypertension Smoking Status: Former smoker Tobacco Use: Non-smoker Physical Exam Vital Signs Temp Pulse Resp BP 97.6 F L 112 H 18 129/83 H 08/11/18 10:14 08/11/18 10:14 08/11/18 10:14 08/11/18 10:14 General: Alert, Oriented x3, Cooperative, No apparent distress HEENT: Atraumatic Lungs: Normal air movement Psych/Mental Status: Normal Affect Assessment/Plan The patient appears to be tolerating hyperbaric oxygen therapy well, which will be continued as per the patient's medical plan.
== END 2018-08-17 23:59 ==
LOC: WC 10:00
PROVIDERS: Family Provider Family Medicine; PCP Family Medicine; Visit Provider Surgery
DX: L59.8 Other specified disorders of the skin and subcutaneous tissue related to radiation (principal); Y84.2 Radiological procedure and radiotherapy as the cause of abnormal reaction of the patient, or of later complication, without mention of misadventure at the time of the procedure; Z87.891 Personal history of nicotine dependence; N61.1 Abscess of the breast and nipple; Z85.3 Personal history of malignant neoplasm of breast; G47.33 Obstructive sleep apnea (adult) (pediatric); E03.9 Hypothyroidism, unspecified; Z79.899 Other long term (current) drug therapy; G89.29 Other chronic pain; F41.9 Anxiety disorder, unspecified; F32.9 Major depressive disorder, single episode, unspecified
CPT/HCPCS: 99183; G0277

== ENCOUNTER → 2018-08-16 11:05 | Outpatient (CLI) | payer BC, SELFPAY ==
[2017-09-29 13:07] VITALS: BMI 36.4
--- NOTE | 2018-08-16 11:09 | US_ITS ---
STUDY: ABDOMINAL ULTRASOUND - RIGHT UPPER QUADRANT REASON FOR VISIT: Female, 33 years old. Right upper quadrant pain. TECHNIQUE: Ultrasound evaluation of the right upper quadrant was performed with real-time and static mendes-scale imaging. TECHNICAL QUALITY: Adequate. COMPARISON: None. FINDINGS: Liver: The liver measures 14.3 cm. There is increased echogenicity consistent with fatty infiltration. The bile ducts are within normal limits. There is hepatic color flow. The direction of portal flow is hepatopetal. There is no demonstrated mass lesion. Gallbladder: Normal distended gallbladder. The gallbladder wall measures 2.6 mm. There is a negative sonographic Phan's sign. There is no pericholecystic fluid. There are no gallstones. Common Bile Duct (C.B.D.): The common bile duct measures 4.9 mm. Pancreas: Normal size of the head, body and tail of the pancreas. There is normal echogenicity of the pancreas. There is no demonstrated pancreatic mass or cyst. Right Kidney: Normal size of the right kidney. The right kidney measures 10.3 cm x 5.2 cm x 3.9 cm. Normal renal cortex. The right cortex measures 1.3 cm. There is no demonstrated renal mass or cyst. There is no right hydronephrosis. US/Abdomen Limited IMPRESSION: Fatty infiltration of the liver. Electronically Signed: Lupillo Samuel MD at 12:21 EDT Tel [phone], Service support ,
== END ==
PROVIDERS: Family Provider Family Medicine; PCP Family Medicine; Referring Provider Physician Assistant Surgical; Visit Provider Physician Assistant Surgical
DX: R10.13 Epigastric pain (principal)
CPT/HCPCS: 76705

== ENCOUNTER → 2018-09-12 10:22 | Outpatient (CLI) | payer BC, OTHER, SELFPAY ==
[2017-09-29 13:07] VITALS: BMI 36.4
[2018-09-12 09:07] VITALS: BMI 32.3
[2018-09-12 11:14] LABS: Absolute Lymphocyte Count 1.25 X10^3/ul (0.83-4.51); Absolute Neutrophil Count 2.2 X10^3/uL (2.0-7.7); Basophil# 0.02 X10^3/uL; Basophil% 0.5 % (0-1); Eosinophils% 2.6 % (0-5); Hemoglobin 13.3 g/dl (12.0-15.0); Lymphocyte # 1.25 X10^3/ul (4.0); Lymphocyte % 32.4 % (19-41); Mean Corp Hgb Conc 34.1 g/gl (32-36); Mean Corpuscular Hgb 29.5 pg (27.0-32.0); Mean Corpuscular Volume 86.5 fL (81-99); Mean Platelet Vol. 8.2 fl (6.2-12.0); Monocyte# 0.31 X10^3/uL; Neutrophil # 2.18 X10^3/uL (2.7-7.7); Neutrophil % 56.5 % (47-70); Platelet Count 139 K/mm3 (150-450); RBC Distribution Width CV 13.6 % (11.6-14.6); RBC Distribution Width SD 43.2 fl (35.1-43.9); Red Blood Count 4.51 M/mm3 (4.2-5.4); White Blood Count 3.9 K/mm3 (4.4-11.0)
[2018-09-12 11:16] LABS: POSITIVE COUNT NO; POSITIVE DIFFERENTIAL NO; POSITIVE MORPHOLOGY NO
[2018-09-12 11:50] LABS: ALB/GLOB Ratio 1.2 RATIO (0.9-2.4); AST(SGOT) 34 U/L (15-37); Alanine Aminotransfer ALT/SGPT 54 U/L (13-56); Albumin, Serum 4.1 g/dL (3.2-5.0); Alkaline Phosphatase 106 U/L (45-117); Anion Gap 6 (5-15); BUN 18 mg/dL (7-18); BUN/Creat Ratio 22.4 RATIO (10-20); Calcium,Total 8.6 mg/dL (8.5-10.1); Chloride 106 mmol/L (98-107); Cholesterol 169 mg/dL (200); EST Glomerular Filtration Rate 86 mL/min (>60); Est Glom Filt Rate - Afr Amer 105 mL/min (>60); Globulin 3.5 g/dL (2.2-4.2); Glucose 85 mg/dL (74-106); High Density Lipoprotein 60 mg/dL; Potassium 3.6 mmol/L (3.5-5.1); Protein, Total 7.6 g/dL (6.4-8.2); Sodium Level 137 mmol/L (136-145); Triglycerides 99 mg/dL; Very Low Density Lipoprotein 20 mg/dL (5-40)
[2018-09-12 12:03] LABS: Free T3 3.1 pg/mL (2.18-3.98); T4 Free Direct 1.03 ng/dL (0.76-1.46); Thyroid Stim Hormone (TSH) 3.95 uIU/mL (0.358-3.74)
== END ==
PROVIDERS: Family Provider Internal Medicine; PCP Internal Medicine; Referring Provider Nurse Practitioner; Visit Provider Nurse Practitioner
DX: C50.919 Malignant neoplasm of unspecified site of unspecified female breast (principal); E03.9 Hypothyroidism, unspecified; E07.9 Disorder of thyroid, unspecified
CPT/HCPCS: 36415; 80053; 80061; 84439; 84443; 84481; 85025

== ENCOUNTER 2018-09-14 20:27 | Emergency (ER) | payer BC, SELFPAY ==
[2018-09-12 11:43] VITALS: BMI 32.3; BMI 36.4
[2018-09-14 20:29] VITALS: BP 146/99; PULSE 109; PULSE 113; RESP 18; TEMP 36.8; O2SAT 99; BMI 33.6
[2018-09-14] MEDS: 0.9% Normal Saline 1,000 ML 150 ML IV (20:53)
[2018-09-14 21:03] LABS: Absolute Lymphocyte Count 1.82 X10^3/ul (0.83-4.51); Absolute Neutrophil Count 3.4 X10^3/uL (2.0-7.7); Basophil# 0.02 X10^3/uL; Basophil% 0.4 % (0-1); Eosinophil# 0.13 X10^3/uL; Eosinophils% 2.3 % (0-5); Hemoglobin 12.6 g/dl (12.0-15.0); Lymphocyte # 1.82 X10^3/ul (4.0); Lymphocyte % 32.2 % (19-41); Mean Corp Hgb Conc 34.1 g/gl (32-36); Mean Corpuscular Hgb 29.2 pg (27.0-32.0); Mean Corpuscular Volume 85.8 fL (81-99); Mean Platelet Vol. 7.8 fl (6.2-12.0); Monocyte# 0.29 X10^3/uL; Monocyte% 5.1 % (0-10); Neutrophil # 3.38 X10^3/uL (2.7-7.7); Neutrophil % 59.8 % (47-70); Platelet Count 141 K/mm3 (150-450); RBC Distribution Width CV 13.2 % (11.6-14.6); RBC Distribution Width SD 41.7 fl (35.1-43.9); Red Blood Count 4.31 M/mm3 (4.2-5.4); White Blood Count 5.7 K/mm3 (4.4-11.0)
[2018-09-14 21:08] LABS: POSITIVE COUNT NO; POSITIVE DIFFERENTIAL NO; POSITIVE MORPHOLOGY NO
[2018-09-14 21:16] LABS: Anion Gap 8 (5-15); BUN 13 mg/dL (7-18); BUN/Creat Ratio 16.8 RATIO (10-20); Calcium,Total 8.3 mg/dL (8.5-10.1); Chloride 108 mmol/L (98-107); Creatinine, Serum 0.77 mg/dL (0.55-1.02); EST Glomerular Filtration Rate 91 mL/min (>60); Est Glom Filt Rate - Afr Amer 110 mL/min (>60); Estimated Creatinine Clearance 103.85 ml/min; Glucose 136 mg/dL (74-106); Potassium 3.4 mmol/L (3.5-5.1); Sodium Level 141 mmol/L (136-145)
[2018-09-14 21:17] LABS: D-Dimer Quantitative (DVT/PE) < 0.27 FEU/ug/m (0.27-0.49)
[2018-09-14 21:34] VITALS: BP 123/87; PULSE 107; RESP 16; O2SAT 98
--- NOTE | 2018-09-14 21:42 | ED.DCSUM_ITS ---
- ER Visit Summary Date of Service: 09/14/18 Chief Complaint: [Weakness] History of Present Illness: The patient is a 33 F [presents to the emergency department complaint of inability to move her arms or legs. Patient states that she was driving home when she started feeling somewhat weak and did not feel like she could use her arms and continue to drive. Patient pulled over into a parking lot and states that she panicked and called EMS. Patient has had similar symptoms like this multiple times in the past and has been diagnosed with narcolepsy and cataplexy. Patient also has history of anxiety and sleep apnea. Patient denies any headache. Patient states that she has had some intermittent chest discomfort left side of her chest for the last several weeks. Pain is sharp and stabbing and usually resolves after less than 5 minutes.] States that she did have one christ drink tonight. She denies any recent stressors. Physical Examination: [HEENT-PERRLA, EOMI. Cranial nerves II through XII grossly intact. TMs clear. Mucous membranes moist. No adenopathy. Cardiovascular-regular rate and rhythm without murmur or ectopy Lungs-clear to auscultation, chest wall stable without crepitus or subcu emphysema Abdomen-normoactive bowel sounds, soft, nontender, no rebound or rigidity, no peritoneal signs. Neuro exam-no facial droop. Patient does not move her upper or lower extremities. Babinski's are downgoing bilaterally. Tendon reflexes are plus out of 4 bilaterally in the upper and lower extremities. Has normal sensation in the upper and lower extremities. Extremities-intact ?4, normal range of motion, normal pulses, atraumatic] Test Results: [CBC with differential obtained was normal. Chemistries showed sodium 141, potassium 3.4, chloride 108, CO2 25, glucose 136, BUN 13, creatinine 0.77. D-dimer was less than 0.27.] Emergency Department Course and Treatment: [Patient received 40 mEq of potassium chloride p.o. On repeat examination patient now tells me that she is lost the ability to speak but now she is able to use her arms. Patient regain use of her legs as well but then started to lose once again the ability to use her legs.] Treatment Plan: [She will be observed in the department until such time she is ready to go home.] Disposition: [Discharged home in stable condition] Impression: [Cataplexy Anxiety] This note was generated with [employer] dictation software. It may contain incorrect words, spelling, and punctuation that were not noted in review of the chart prior to signing ED Disposition - Plan for ED Patient: Chief Complaint: Weakness Referrals: Rhett Elias MD [Primary Care Provider] -
--- NOTE | 2018-09-14 21:42 | ED.DEP ---
ED Disposition - Plan for ED Patient: Chief Complaint: Weakness Instructions: What Is Narcolepsy?, ED Stress React Referrals: Rhett Elias MD [Primary Care Provider] - Yfn Castillo MD [STAFF PHYSICIAN] - 3-5 Days
[2018-09-14 22:18] VITALS: BP 137/97; RESP 14
--- OUTSIDE RECORDS SUMMARY | 2018-11-10 04:43 | XMS RPT_ITS ---
:1985 Author Organization OHIP Support Name Relationship Address Phone JOCELYNE BETANCOURTOMY Unavailable [address] [facility] [address] + [place] [address] RODOLFO LACEYCY Unavailable [address] + [place] [address] UE Unavailable Unavailable Unavailable MENYAMILA LIANNA Unavailable [address] [facility] + [place] [address] RODOLFO LACEYCY Unavailable [address] + [place] [address] UE Unavailable Unavailable Unavailable MENNER, LIANNA Unavailable [address] [facility] + [place] [address] RODOLFO LACEYCY Unavailable [address] + [place] [address] UE Unavailable Unavailable Unavailable MENNER, LIANNA Unavailable [address] [facility] + [place] [address] RODOLFO LACEYCY Unavailable [address] + [place] [address] UE Unavailable Unavailable Unavailable MENNER, LIANNA Unavailable [address] [facility] [address] + [place] [address] RODOLFO LACEYCY Unavailable [address] + [place] [address] UE Unavailable Unavailable Unavailable MENNER, LIANNA Unavailable [address] [facility] [address] + [place] [address] RODOLFO LACEYCY Unavailable [address] + [place] [address] UE Unavailable Unavailable Unavailable MENNER, LIANNA Unavailable [address] [facility] [address] + [place] [address] RODOLFO LACEYCY Unavailable [address] + [place] [address] UE Unavailable Unavailable Unavailable MENNER, LIANNA Unavailable [address] + [place] [address] CHARLES LACEY Unavailable [address] + [place] [address] UE Unavailable Unavailable Unavailable MENNER, LIANNA Unavailable [address] + [place] [address] CHARLES LACEY Unavailable [address] + [place] [address] UE Unavailable Unavailable Unavailable MENNER, LIANNA Unavailable [address] + [place] [address] CHARLES LACEY Unavailable [address] + [place] [address] UE Unavailable Unavailable Unavailable MENNER, LIANNA Unavailable [address] [facility] [address] + [place] [address] CHARLES LACEY Unavailable [address] + [place] [address] UE Unavailable Unavailable Unavailable CHARLES LACEY Unavailable [address] + [place] [address] UE Unavailable Unavailable Unavailable MENNER, LIANNA Unavailable [address] [facility] [address] + [place] [address] CHARLES LACEY Unavailable [address] + [place] [address] UE Unavailable Unavailable Unavailable MENNER, LIANNA Unavailable [address] [facility] [address] + [place] [address] CHARLES LACEY Unavailable [address] + [place] [address] UE Unavailable Unavailable Unavailable MENNER, LIANNA Unavailable [address] [facility] [address] + [place] [address] CHARLES LACEY Unavailable [address] + [place] [address] UE Unavailable Unavailable Unavailable MENNER, LIANNA Unavailable [address] + [place] [address] RODOLFO LACEYCY Unavailable [address] + [place] [address] UE Unavailable Unavailable Unavailable MENNER, LIANNA Unavailable [address] + [place] [address] CHARLES LACEY Unavailable [address] + [place] [address] UE Unavailable Unavailable Unavailable MENNER, LIANNA Unavailable [address] + [place] [address] CHARLES LACEY Unavailable [address] + [place] [address] UE Unavailable Unavailable Unavailable MENNER, LIANNA Unavailable [address] + [place] [address] CHARLES LACEY Unavailable [address] + [place] [address] UE Unavailable Unavailable Unavailable MENNER, LIANNA Unavailable [address] + [place] [address] CHARLES LACEY Unavailable [address] + [place] [address] UE Unavailable Unavailable Unavailable MENNER, LIANNA Unavailable [address] + [place] [address] CHARLES LACEY Unavailable [address] + [place] [address] UE Unavailable Unavailable Unavailable MENNER, LIANNA Unavailable [address] + [place] [address] CHARLES LACEY Unavailable [address] + [place] [address] UE Unavailable Unavailable Unavailable MENNER, LIANNA Unavailable [address] + [place] [address] CHARLES LACEY Unavailable [address] + [place] [address] UE Unavailable Unavailable Unavailable MENNER, LIANNA Unavailable [address] + [place] [address] CHARLES LACEY Unavailable [address] + [place] [address] UE Unavailable Unavailable Unavailable MENNER, LIANNA Unavailable [address] + [place] [address] ABHIJIT, CHARLES Unavailable [address] + [place] [address] UE Unavailable Unavailable Unavailable JOCELYNE BETANCOURTOMY Unavailable [address] [facility] [address] + [place] [address] ABHIJIT, CHARLES Unavailable [address] + [place] [address] UE Unavailable Unavailable Unavailable MENJOCELYNE DRISCOLLOMY Unavailable [address] [facility] [address] + [place] [address] ABHIJIT, CHARLES Unavailable [address] + [place] [address] UE Unavailable Unavailable Unavailable JOCELYNE BETANCOURTOMY Unavailable [address] [facility] [address] + [place] [address] ABHIJIT, CHARLES Unavailable [address] + [place] [address] UE Unavailable Unavailable Unavailable MENNERJOCELYNELIANNA Unavailable [address] [facility] [address] + [place] [address] ABHIJIT, CHARLES Unavailable [address] + [place] [address] UE Unavailable Unavailable Unavailable JOCELYNE BETANCOURTOMY Unavailable [address] [facility] [address] + [place] [address] RODOLFO LACEYCY Unavailable [address] + [place] [address] UE Unavailable Unavailable Unavailable MENJOCELYNE DRISCOLLOMY Unavailable [address] [facility] [address] + [place] [address] ABHIJIT, CHARLES Unavailable [address] + [place] [address] UE Unavailable Unavailable Unavailable MENNER, LIANNA Unavailable [address] [facility] [address] + [place] [address] ABHIJIT, CHARLES Unavailable [address] + [place] [address] UE Unavailable Unavailable Unavailable MENNERJOCELYNELIANNA Unavailable [address] [facility] [address] + [place] [address] PAJAK, CHARLES Unavailable [address] + [place] [address] UE Unavailable Unavailable Unavailable MENNER, LIANNA Unavailable [address] + [place] [address] CHARLES LACEY Unavailable [address] + [place] [address] UE Unavailable Unavailable Unavailable MENNER, LIANNA Unavailable [address] + [place] [address] CHARLES LACEY Unavailable [address] + [place] [address] UE Unavailable Unavailable Unavailable MENNER, LIANNA Unavailable [address] [facility] [address] + [place] [address] CHARLES LACEY Unavailable [address] + [place] [address] UE Unavailable Unavailable Unavailable MENNER, LIANNA Unavailable [address] [facility] [address] + [place] [address] CHARLES LACEY Unavailable [address] + [place] [address] UE Unavailable Unavailable Unavailable MENNER, LIANNA Unavailable [address] [facility] [address] + [place] [address] CHARLES LACEY Unavailable [address] + [place] [address] UE Unavailable Unavailable Unavailable MENNER, LIANNA Unavailable [address] [facility] [address] + [place] [address] CHARLES LACEY Unavailable [address] + [place] [address] UE Unavailable Unavailable Unavailable MENNER, LIANNA Unavailable [address] [facility] [address] + [place] [address] CHARLES LACEY Unavailable [address] + [place] [address] UE Unavailable Unavailable Unavailable MENNER, LIANNA Unavailable [address] + [place] [address] CHARLES LACEY Unavailable [address] + [place] [address] UE Unavailable Unavailable Unavailable MENNER, LIANNA Unavailable [address] [facility] [address] + [place] [address] RODOLFO LACEYCY Unavailable [address] + [place] [address] UE Unavailable Unavailable Unavailable JOCELYNE BETANCOURTOMY Unavailable [address] [facility] [address] + [place] [address] ABHIJIT, CHARLES Unavailable [address] + [place] [address] UE Unavailable Unavailable Unavailable JOCELYNE BETANCOURTOMY Unavailable [address] [facility] [address] + [place] [address] PAHYACINTH, CHARLES Unavailable [address] + [place] [address] UE Unavailable Unavailable Unavailable JOCELYNE BETANCOURTOMY Unavailable [address] [facility] [address] + [place] [address] ABHIJIT, CHARLES Unavailable [address] + [place] [address] UE Unavailable Unavailable Unavailable JOCELYNE BETANCOURTOMY Unavailable [address] [facility] [address] + [place] [address] ABHIJIT, CHARLES Unavailable [address] + [place] [address] UE Unavailable Unavailable Unavailable JOCELYNE BETANCOURTOMY Unavailable [address] [facility] [address] + [place] [address] RODOLFO LACEYCY Unavailable [address] + [place] [address] UE Unavailable Unavailable Unavailable JOCELYNE BETANCOURTOMY Unavailable [address] [facility] [address] + [place] [address] ABHIJIT, CHARLES Unavailable [address] + [place] [address] UE Unavailable Unavailable Unavailable MENJOCELYNE DRISCOLLOMY Unavailable [address] [facility] [address] + [place] [address] PAHYACINTH, CHARLES Unavailable [address] + [place] [address] UE Unavailable Unavailable Unavailable MENJOCELYNE DRISCOLLOMY Unavailable [address] [facility] [address] + [place] [address] PAJAK, CHARLES Unavailable [address] + [place] [address] UE Unavailable Unavailable Unavailable MENNER, LIANNA Unavailable [address] + [place] [address] CHARLES LACEY Unavailable [address] + [place] [address] UE Unavailable Unavailable Unavailable MENNER, LIANNA Unavailable [address] + [place] [address] CHARLES LACEY Unavailable [address] + [place] [address] UE Unavailable Unavailable Unavailable MENNER, LIANNA Unavailable [address] + [place] [address] CHARLES LACEY Unavailable [address] + [place] [address] UE Unavailable Unavailable Unavailable MENNER, LIANNA Unavailable [address] + [place] [address] CHARLES LACEY Unavailable [address] + [place] [address] UE Unavailable Unavailable Unavailable MENNER, LIANNA Unavailable [address] [facility] [address] + [place] [address] CHARLES LACEY Unavailable [address] + [place] [address] UE Unavailable Unavailable Unavailable MENNER, LIANNA Unavailable [address] [facility] [address] + [place] [address] CHARLES LACEY Unavailable [address] + [place] [address] UE Unavailable Unavailable Unavailable MENNER, LIANNA Unavailable [address] [facility] [address] + [place] [address] CHARLES LACEY Unavailable [address] + [place] [address] UE Unavailable Unavailable Unavailable MENNER, LIANNA Unavailable [address] + [place] [address] CHARLES LACEY Unavailable [address] + [place] [address] UE Unavailable Unavailable Unavailable MENNER, LIANNA Unavailable [address] [facility] [address] + [place] [address] MENYAMILA LIANNA Unavailable [address] [facility] [address] + [place] [address] MENJOCELYNE DRISCOLLOMY Unavailable [address] [facility] [address] + [place] [address] RODOLFO LACEYCY Unavailable [address] + [place] [address] UE Unavailable Unavailable Unavailable MENNER, LIANNA Unavailable [address] [facility] [address] + [place] [address] ABHIJIT CHARLES Unavailable [address] + [place] [address] UE Unavailable Unavailable Unavailable MENNER, LIANNA Unavailable [address] [facility] [address] + [place] [address] RODOLFO LACEYCY Unavailable [address] + [place] [address] UE Unavailable Unavailable Unavailable MENNER, LIANNA Unavailable [address] [facility] [address] + [place] [address] RODOLFO LACEYCY Unavailable [address] + [place] [address] UE Unavailable Unavailable Unavailable MENNER, LIANNA Unavailable [address] [facility] [address] + [place] [address] RODOLFO LACEYCY Unavailable [address] + [place] [address] UE Unavailable Unavailable Unavailable MENNERJOCELYNELIANNA Unavailable [address] [facility] [address] + [place] [address] ABHIJIT CHARLES Unavailable [address] + [place] [address] UE Unavailable Unavailable Unavailable MENNER, LIANNA Unavailable [address] [facility] [address] + [place] [address] ABHIJIT CHARLES Unavailable [address] + [place] [address] UE Unavailable Unavailable Unavailable MENNER, LIANNA Unavailable [address] [facility] [address] + [place] [address] PAJAK, CHARLES Unavailable [address] + [place] [address] UE Unavailable Unavailable Unavailable MENNER, LIANNA Unavailable [address] + [place] [address] CHARLES LACEY Unavailable [address] + [place] [address] UE Unavailable Unavailable Unavailable MENNER, LIANNA Unavailable [address] + [place] [address] CHARLES LACEY Unavailable [address] + [place] [address] UE Unavailable Unavailable Unavailable MENNER, LIANNA Unavailable [address] + [place] [address] CHARLES LACEY Unavailable [address] + [place] [address] UE Unavailable Unavailable Unavailable MENNER, LIANNA Unavailable [address] + [place] [address] CHARLES LACEY Unavailable [address] + [place] [address] UE Unavailable Unavailable Unavailable MENNER, LIANNA Unavailable [address] + [place] [address] CHARLES LACEY Unavailable [address] + [place] [address] UE Unavailable Unavailable Unavailable MENNER, LIANNA Unavailable [address] + [place] [address] CHARLES LACEY Unavailable [address] + [place] [address] UE Unavailable Unavailable Unavailable MENNER, LIANNA Unavailable [address] + [place] [address] CHARLES LACEY Unavailable [address] + [place] [address] UE Unavailable Unavailable Unavailable MENNER, LIANNA Unavailable [address] + [place] [address] CHARLES LACEY Unavailable [address] + [place] [address] UE Unavailable Unavailable Unavailable MENNER, LIANNA Unavailable [address] [facility] [address] + [place] [address] RODOLFO LACEYCY Unavailable [address] + [place] [address] UE Unavailable Unavailable Unavailable JOCELYNE BTEANCOURTOMY Unavailable [address] [facility] [address] + [place] [address] ABHIJIT, CHARLES Unavailable [address] + [place] [address] UE Unavailable Unavailable Unavailable JOCELYNE BETANCOURTOMY Unavailable [address] [facility] [address] + [place] [address] ABHIJIT, CHARLES Unavailable [address] + [place] [address] UE Unavailable Unavailable Unavailable JOCELYNE BETANCOURTOMY Unavailable [address] [facility] [address] + [place] [address] RODOLFO LACEYCY Unavailable [address] + [place] [address] UE Unavailable Unavailable Unavailable JOCELYNE BETANCOURTOMY Unavailable [address] [facility] [address] + [place] [address] ABHIJIT, CHARLES Unavailable [address] + [place] [address] UE Unavailable Unavailable Unavailable JOCELYNE BETANCOURTOMY Unavailable [address] [facility] [address] + [place] [address] RODOLFO LACEYCY Unavailable [address] + [place] [address] UE Unavailable Unavailable Unavailable JOCELYNE BETANCOURTOMY Unavailable [address] [facility] [address] + [place] [address] ABHIJIT, CHARLES Unavailable [address] + [place] [address] UE Unavailable Unavailable Unavailable JOCELYNE BETANCOURTOMY Unavailable [address] [facility] [address] + [place] [address] PAHYACINTH, CHARLES Unavailable [address] + [place] [address] UE Unavailable Unavailable Unavailable MENJOCELYNE DRISCOLLOMY Unavailable [address] [facility] [address] + [place] [address] PAJAK, CHARLES Unavailable [address] + [place] [address] UE Unavailable Unavailable Unavailable MENNER, LIANNA Unavailable [address] + [place] [address] CHARLES LACEY Unavailable [address] + [place] [address] UE Unavailable Unavailable Unavailable MENNER, LIANNA Unavailable [address] + [place] [address] CHARLES LACEY Unavailable [address] + [place] [address] UE Unavailable Unavailable Unavailable MENNER, LIANNA Unavailable [address] + [place] [address] CHARLES LACEY Unavailable [address] + [place] [address] UE Unavailable Unavailable Unavailable MENNER, LIANNA Unavailable [address] + [place] [address] CHARLES LACEY Unavailable [address] + [place] [address] UE Unavailable Unavailable Unavailable MENNER, LIANNA Unavailable [address] + [place] [address] CHARLES LACEY Unavailable [address] + [place] [address] UE Unavailable Unavailable Unavailable MENNER, LIANNA Unavailable [address] + [place] [address] CHARLES LACEY Unavailable [address] + [place] [address] UE Unavailable Unavailable Unavailable MENNER, LIANNA Unavailable [address] [facility] [address] + [place] [address] CHARLES LACEY Unavailable [address] + [place] [address] UE Unavailable Unavailable Unavailable MENNER, LIANNA Unavailable [address] + [place] [address] CHARLES LACEY Unavailable [address] + [place] [address] UE Unavailable Unavailable Unavailable MENNER, LIANNA Unavailable [address] [facility] [address] + [place] [address] RODOLFO LACEYCY Unavailable [address] + [place] [address] UE Unavailable Unavailable Unavailable MENJOCELYNE DRISCOLLOMY Unavailable [address] [facility] [address] + [place] [address] RODOLFO LACEYCY Unavailable [address] + [place] [address] UE Unavailable Unavailable Unavailable MENJOCELYNE DRISCOLLOMY Unavailable [address] [facility] [address] + [place] [address] RODOLFO LACEYCY Unavailable [address] + [place] [address] UE Unavailable Unavailable Unavailable JOCELYNE BETANCOURTOMY Unavailable [address] [facility] [address] + [place] [address] RODOLFO LACEYCY Unavailable [address] + [place] [address] UE Unavailable Unavailable Unavailable MENJOCELYNE DRISCOLLOMY Unavailable [address] [facility] [address] + [place] [address] RODOLFO LACEYCY Unavailable [address] + [place] [address] UE Unavailable Unavailable Unavailable JOCELYNE BETANCOURTOMY Unavailable [address] [facility] [address] + [place] [address] RODOLFO LACEYCY Unavailable [address] + [place] [address] UE Unavailable Unavailable Unavailable MENJOCELYNE DRISCOLLOMY Unavailable [address] [facility] [address] + [place] [address] ABHIJIT CHARLES Unavailable [address] + [place] [address] UE Unavailable Unavailable Unavailable MENNERJOCELYNELIANNA Unavailable [address] [facility] [address] + [place] [address] ABHIJIT, CHARLES Unavailable [address] + [place] [address] UE Unavailable Unavailable Unavailable MENNERJOCELYNELIANNA Unavailable [address] [facility] [address] + [place] [address] CHARLES LACEY Unavailable [address] + [place] [address] UE Unavailable Unavailable Unavailable MENNER, LIANNA Unavailable [address] [facility] [address] + [place] [address] CHARLES LACEY Unavailable [address] + [place] [address] UE Unavailable Unavailable Unavailable MENNOR, LIANNA Unavailable [address] [facility] [address] + [place] [address] RODOLFO LACEYCY Unavailable [address] + [place] [address] UE Unavailable Unavailable Unavailable MENNOR, LIANNA Unavailable [address] [facility] [address] + [place] [address] RODOLFO LACEYCY Unavailable [address] + [place] [address] UE Unavailable Unavailable Unavailable MENNER, LIANNA Unavailable [address] [facility] [address] + [place] [address] CHARLES LACEY Unavailable [address] + [place] [address] UE Unavailable Unavailable Unavailable MENNER, LIANNA Unavailable [address] [facility] [address] + [place] [address] CHARLES LACEY Unavailable [address] + [place] [address] UE Unavailable Unavailable Unavailable MENNOR, LIANNA Unavailable [address] [facility] [address] + [place] [address] CHARLES LACEY Unavailable [address] + [place] [address] UE Unavailable Unavailable Unavailable MENNOR, LIANNA Unavailable [address] [facility] [address] + [place] [address] RODOLFO LACEYCY Unavailable [address] + [place] [address] UE Unavailable Unavailable Unavailable MENNOR, LIANNA Unavailable [address] [facility] [address] + [place] [address] CHARLES LACEY Unavailable [address] + [place] [address] UE Unavailable Unavailable Unavailable MENNER, LIANNA Unavailable [address] + [place] [address] RODOLFO LACEYCY Unavailable [address] + [place] [address] UE Unavailable Unavailable Unavailable MENNER, LIANNA Unavailable [address] + [place] [address] ABHIJIT CHARLES Unavailable [address] + [place] [address] UE Unavailable Unavailable Unavailable MENNOR, LIANNA Unavailable [address] + [place] [address] RODOLFO LACEYCY Unavailable [address] + [place] [address] UE Unavailable Unavailable Unavailable MENNOR, LIANNA Unavailable [address] + [place] [address] RODOLFO LACEYCY Unavailable [address] + [place] [address] UE Unavailable Unavailable Unavailable MENNOR, LIANNA Unavailable [address] + [place] [address] RODOLFO LACEYCY Unavailable [address] + [place] [address] UE Unavailable Unavailable Unavailable MENNOR, LIANNA Unavailable [address] + [place] [address] RODOLFO LACEYCY Unavailable [address] + [place] [address] UE Unavailable Unavailable Unavailable MENNOR, LIANNA Unavailable [address] + [place] [address] PAHYACINTH CHARLES Unavailable [address] + [place] [address] UE Unavailable Unavailable Unavailable MENNER, LIANNA Unavailable [address] + [place] [address] ABHIJIT CHARLES Unavailable [address] + [place] [address] UE Unavailable Unavailable Unavailable MENNOR, LIANNA Unavailable [address] + [place] [address] PAHYACINTH, CHARLES Unavailable [address] + [place] [address] UE Unavailable Unavailable Unavailable MENNOR, LIANNA Unavailable [address] [facility] [address] + [place] [address] PAHYACINTH, CHARLES Unavailable [address] + [place] [address] UE Unavailable Unavailable Unavailable MENNOR, LIANNA Unavailable [address] [facility] + [place] [address] PAHYACINTH, CHARLES Unavailable [address] + [place] [address] UE Unavailable Unavailable Unavailable MENNOR, LIANNA Unavailable [address] [facility] + [place] [address] ABHIJIT, CHARLES Unavailable [address] + [place] [address] UE Unavailable Unavailable Unavailable MENNOR, LIANNA Unavailable [address] [facility] + [place] [address] PAHYACINTH, CHARLES Unavailable [address] + [place] [address] UE Unavailable Unavailable Unavailable MENNOR, LIANNA Unavailable [address] [facility] + [place] [address] ABHIJIT, CHARLES Unavailable [address] + [place] [address] UE Unavailable Unavailable Unavailable MENNER, LIANNA Unavailable [address] [facility] + [place] [address] PAHYACINTH, CHARLES Unavailable [address] + [place] [address] UE Unavailable Unavailable Unavailable MENNOR, LIANNA Unavailable [address] [facility] + [place] [address] PAHYACINTH, CHARLES Unavailable [address] + [place] [address] UE Unavailable Unavailable Unavailable MENNER, LIANNA Unavailable [address] [facility] + [place] [address] PAHYACINTH, CHARLES Unavailable [address] + [place] [address] UE Unavailable Unavailable Unavailable MENNER, LIANNA Unavailable [address] + [place] [address] CHARLES LACEY Unavailable [address] + [place] [address] UE Unavailable Unavailable Unavailable MENNOR, LIANNA Unavailable [address] [facility] [address] + [place] [address] CHARLES LACEY Unavailable [address] + [place] [address] UE Unavailable Unavailable Unavailable MENNER, LIANNA Unavailable [address] [facility] [address] + [place] [address] CHARLES LACEY Unavailable [address] + [place] [address] UE Unavailable Unavailable Unavailable MENNER, LIANNA Unavailable [address] [facility] [address] + [place] [address] CHARLES LACEY Unavailable [address] + [place] [address] UE Unavailable Unavailable Unavailable MENNER, LIANNA Unavailable [address] [facility] [address] + [place] [address] CHARLES LACEY Unavailable [address] + [place] [address] UE Unavailable Unavailable Unavailable MENNER, LIANNA Unavailable [address] [facility] [address] + [place] [address] CHARLES LACEY Unavailable [address] + [place] [address] UE Unavailable Unavailable Unavailable MENNER, LIANNA Unavailable [address] [facility] [address] + [place] [address] CHARLES LACEY Unavailable [address] + [place] [address] UE Unavailable Unavailable Unavailable MENNER, LIANNA Unavailable [address] + [place] [address] CHARLES LACEY Unavailable [address] + [place] [address] UE Unavailable Unavailable Unavailable MENNER, LIANNA Unavailable [address] + [place] [address] AMAURYJacquelin CHARLES Unavailable [address] + [place] [address] UE Unavailable Unavailable Unavailable JOCELYNE BETANCOURTOMY Unavailable [address] + [place] [address] RODOLFO LACEYCY Unavailable [address] + [place] [address] UE Unavailable Unavailable Unavailable LIANNA BETANCOURT Unavailable [address] + [place] [address] CHARLES LACEY Unavailable [address] + [place] [address] UE Unavailable Unavailable Unavailable Care Team Providers Name Role Phone Owen Eoduard Attending Unavailable NAUMOFF, KADEN Primary Care Unavailable NAUMTAI, KADEN Referring Unavailable wOen Edouard Attending Unavailable Owen Edouard Attending Unavailable NAUMTAI, KADEN Primary Care Unavailable Devon Xiong Attending Unavailable IsckarusOwen Attending Unavailable Jose Robertson Attending Unavailable Jose Robertson Referring Unavailable NAUMOFF, KADEN Primary Care Unavailable Jose Robertson Consulting Unavailable Jose Robertson Attending Unavailable Jose Robertson Referring Unavailable NAUMOFF, KADEN Primary Care Unavailable Jose Robertson Consulting Unavailable Jose Robertson Attending Unavailable NAUMOFF, KADEN Referring Unavailable NAUMOFF, KADEN Primary Care Unavailable Devon Xiong Attending Unavailable Devon Xiong Attending Unavailable IsckarusOwen Attending Unavailable NAUMOFF, KADEN Primary Care Unavailable IsckarusOwen Consulting Unavailable Devon Xiong Attending Unavailable Erica Benitez Attending Unavailable NAUMOFF, KADEN Primary Care Unavailable IsckarusShashiour Consulting Unavailable Jose Robertson Attending Unavailable Jose Robertson Referring Unavailable NAUMOFF, KADEN Primary Care Unavailable Jose Robertson Attending Unavailable NAUMOFF, KADEN Referring Unavailable NAUMOFF, KADEN Primary Care Unavailable Devon Xiong Attending Unavailable NAUMOFF, KADEN Primary Care Unavailable Isckarus, Shashiour Consulting Unavailable Emmanuel, Erica Attending Unavailable Emmanuel, Erica Referring Unavailable NAUMOFF, KADEN Primary Care Unavailable Evangelist Moseley Attending Unavailable NAUMOFF, KADEN Referring Unavailable NAUMOFF, KADEN Primary Care Unavailable Laura, Karly Attending Unavailable NAUMOFF, KADEN Referring Unavailable NAUMOFF, KADEN Primary Care Unavailable Laura, Karly Attending Unavailable [place], Karly Referring Unavailable NAUMOFF, KADEN Primary Care Unavailable Isckarus, Owen Attending Unavailable NAUMOFF, KADEN Referring Unavailable NAUMOFF, KADEN Primary Care Unavailable Isckarus, Mansour Consulting Unavailable Slaby, Jose Attending Unavailable NAUMOFF, KADEN Referring Unavailable Slaby, Jose Attending Unavailable Slaby, Jose Referring Unavailable NAUMOFF, KADEN Primary Care Unavailable Slaby, Jose Admitting Unavailable Slaby, Jose Attending Unavailable Slaby, Jose Referring Unavailable NAUMOFF, KADEN Primary Care Unavailable LoreleiEvangelist culp Attending Unavailable NAUMOFF, KADEN Primary Care Unavailable Slaby, Jose Admitting Unavailable Slaby, Jose Attending Unavailable Slaby, Jose Referring Unavailable NAUMOFF, KADEN Primary Care Unavailable Slaby, Jose Consulting Unavailable Slaby, Jose Attending Unavailable Slaby, Jose Referring Unavailable NAUMOFF, KADEN Primary Care Unavailable Slaby, Jose Attending Unavailable NAUMOFF, KADEN Primary Care Unavailable NAUMOFF, KADEN Primary Care Unavailable Slaby, Joes Admitting Unavailable Paintsil, Milton Attending Unavailable Isckarus, Mansour Consulting Unavailable Jillian Kapadia Attending Unavailable NAUMOFF, KADEN Primary Care Unavailable Slaby, Jose Admitting Unavailable Jason, Albert Attending Unavailable NAUMOFF, KADEN Primary Care Unavailable Slaby, Jose Consulting Unavailable Slaby, Jose Admitting Unavailable Jason, Albert Attending Unavailable NAUMOFF, KADEN Primary Care Unavailable Slaby, Jose Consulting Unavailable Slaby, Jose Attending Unavailable NAUMOFF, KADEN Primary Care Unavailable Slaby, Jose Admitting Unavailable Jason, Albert Attending Unavailable NAUMOFF, KADEN Primary Care Unavailable Slaby, Jose Consulting Unavailable Slaby, Jose Admitting Unavailable Slaby, Jose Attending Unavailable NAUMOFF, KADEN Primary Care Unavailable Slaby, Jose Consulting Unavailable Slaby, Jose Admitting Unavailable Isckarus, Shashiour Attending Unavailable NAUMOFF, KADEN Primary Care Unavailable Isckarus, Mansour Consulting Unavailable Paintsil, Milton Consulting Unavailable Slaby, Jose Admitting Unavailable Paintsil, Milton Attending Unavailable NAUMOFF, KADEN Primary Care Unavailable Isckarus, Mansour Consulting Unavailable Paintsil, Milton Consulting Unavailable Slaby, Jose Attending Unavailable NAUMOFF, KADEN Referring Unavailable Slaby, Jose Admitting Unavailable Slaby, Jose Attending Unavailable NAUMOFF, KADEN Primary Care Unavailable Isckarus, Owen Consulting Unavailable Paintsil, Milton Consulting Unavailable Lauro, Francisco Attending Unavailable Slaby, Jose Attending Unavailable NAUMOFF, KADEN Primary Care Unavailable Marcanthony, Gini Attending Unavailable NAUMOFF, KADEN Referring Unavailable NAUMOFF, KADEN Primary Care Unavailable Marcanthony, Gini Attending Unavailable Marcanthony, Gini Referring Unavailable NAUMOFF, KADEN Primary Care Unavailable Francis Scott Attending Unavailable Slaby, Jose Attending Unavailable NAUMOFF, KADEN Primary Care Unavailable Slaby, Jose Referring Unavailable Slaby, Jose Admitting Unavailable Slaby, Jose Attending Unavailable Slaby, Jose Referring Unavailable NAUMOFF, KADEN Primary Care Unavailable Slaby, Jose Consulting Unavailable Isckarus, Owen Attending Unavailable NAUMOFF, KADEN Referring Unavailable NAUMOFF, KADEN Primary Care Unavailable Isckarus, Owen Consulting Unavailable Slaby, Jose Attending Unavailable Slaby, Jose Referring Unavailable NAUMOFF, KADEN Primary Care Unavailable Slaby, Jose Attending Unavailable NAUMOFF, KADEN Primary Care Unavailable Slaby, Jose Attending Unavailable Lauro, Francisco Attending Unavailable Slaby, Jose Referring Unavailable Berger PA-C, Izabella Attending Unavailable NAUMOFF, KADEN Referring Unavailable Lorelei, Evangelist Attending Unavailable Lorelei, Evangelist Referring Unavailable NAUMOFF, KADEN Primary Care Unavailable Isckarus, Owen Attending Unavailable NAUMOFF, KADEN Referring Unavailable NAUMOFF, KADEN Primary Care Unavailable Isckarus, Shashiour Consulting Unavailable Berger PA-C, Izabella Attending Unavailable NAUMOFF, KADEN Referring Unavailable NAUMOFF, KADEN Primary Care Unavailable Isckarus, Owen Attending Unavailable Isckarus, Owen Referring Unavailable NAUMOFF, KADEN Primary Care Unavailable Slaby, Jose Attending Unavailable NAUMOFF, KADEN Primary Care Unavailable Slaby, Jose Consulting Unavailable Slaby, Jose Attending Unavailable NAUMOFF, KADEN Primary Care Unavailable Slaby, Jose Consulting Unavailable Slaby, Jose Attending Unavailable NAUMOFF, KADEN Primary Care Unavailable Slaby, Jose Consulting Unavailable Slaby, Jose Attending Unavailable NAUMOFF, KADEN Primary Care Unavailable Slaby, Jose Consulting Unavailable Slaby, Jose Attending Unavailable NAUMOFF, KADEN Primary Care Unavailable Slaby, Jose Consulting Unavailable Tyrese, Devon Attending Unavailable Tyrese, Devon Referring Unavailable Tyrese, Devon Attending Unavailable Tyrese, Devon Referring Unavailable Tyrese, Devon Attending Unavailable Tyrese, Devon Referring Unavailable Tyrese, Devon Attending Unavailable Tyrese, Devon Referring Unavailable Tyrese, Devon Attending Unavailable Tyrese, Devon Referring Unavailable Iuka, Evangelist Attending Unavailable Tyrese, Devon Attending Unavailable NAUMOFF, KADEN Referring Unavailable NAUMOFF, KADEN Primary Care Unavailable Isckarus, Shashiour Consulting Unavailable Slaby, Jose Attending Unavailable NAUMOFF, KADEN Primary Care Unavailable Isckarus, Owen Attending Unavailable NAUMOFF, KADEN Referring Unavailable NAUMOFF, KADEN Primary Care Unavailable Isckarus, Shashiour Consulting Unavailable Tyrese, Devon Attending Unavailable NAUMOFF, KADEN Primary Care Unavailable Slaby, Jose Attending Unavailable NAUMOFF, KADEN Primary Care Unavailable Tyrese, Devon Attending Unavailable Tyrese, Devon Referring Unavailable Slaby, Jose Attending Unavailable NAUMOFF, KADEN Primary Care Unavailable Slaby, Jose Attending Unavailable NAUMOFF, KADEN Primary Care Unavailable Isckarus, Shashiour Attending Unavailable NAUMOFF, KADEN Referring Unavailable NAUMOFF, KADEN Primary Care Unavailable Isckarus, Shashiour Consulting Unavailable Nathaniel Walters Attending Unavailable Isckarus, Shashiour Referring Unavailable Slaby, Jose Attending Unavailable NAUMOFF, KADEN Primary Care Unavailable Slaby, Jose Consulting Unavailable Slaby, Jose Attending Unavailable NAUMOFF, KADEN Primary Care Unavailable Slaby, Jose Consulting Unavailable Slaby, Jose Attending Unavailable NAUMOFF, KADEN Primary Care Unavailable Slaby, Jose Consulting Unavailable Slaby, Jose Attending Unavailable NAUMOFF, KADEN Primary Care Unavailable Slaby, Jose Consulting Unavailable Marcanthony, Gini Attending Unavailable NAUMOFF, KADEN Referring Unavailable Slaby, Jose Attending Unavailable NAUMOFF, KADEN Primary Care Unavailable Slaby, Jose Attending Unavailable NAUMOFF, KADEN Primary Care Unavailable PrahSean Attending Unavailable NAUMOFF, KADEN Referring Unavailable NAUMOFF, KADEN Primary Care Unavailable Isckarus, Shashiour Consulting Unavailable Marcanthony, Gini Attending Unavailable NAUMOFF, KADEN Referring Unavailable NAUMOFF, KADEN Primary Care Unavailable Marcanthony, Gini Attending Unavailable Marcanthony, Gini Referring Unavailable NAUMOFF, KADEN Primary Care Unavailable Slaby, Jose Attending Unavailable NAUMOFF, KADEN Primary Care Unavailable Slaby, Jose Consulting Unavailable Slaby, Jose Attending Unavailable Slaby, Jose Referring Unavailable NAUMOFF, KADEN Primary Care Unavailable Jason, Albert Consulting Unavailable Jason, Albert Admitting Unavailable Vignesh, Collette S. Consulting Unavailable Reynaldo Pizarro COMPRESSED YEAST SUPERVISOR-C Attending Unavailable NAUMOFF, KADEN Primary Care Unavailable Slaby, Jose Consulting Unavailable Isckarus, Shashiour Attending Unavailable NAUMOFF, KADEN Referring Unavailable NAUMOFF, KADEN Primary Care Unavailable Isckarus, Mansour Consulting Unavailable Slaby, Jose Attending Unavailable NAUMOFF, KADEN Primary Care Unavailable Slaby, Jose Consulting Unavailable Slaby, Jose Attending Unavailable NAUMOFF, KADEN Primary Care Unavailable Slaby, Jose Consulting Unavailable Slaby, Jose Attending Unavailable NAUMOFF, KADEN Primary Care Unavailable Slaby, Jose Attending Unavailable NAUMOFF, KADEN Primary Care Unavailable Slaby, Jose Attending Unavailable Slaby, Jose Referring Unavailable NAUMOFF, KADEN Primary Care Unavailable Slaby, Jose Consulting Unavailable ClaudiaVarinder Attending Unavailable Slaby, Jose Referring Unavailable NAUMOFF, KADEN Primary Care Unavailable Slaby, Jose Consulting Unavailable [facility], Albert Attending Unavailable Slaby, Jose Referring Unavailable NAUMOFF, KADEN Primary Care Unavailable Jason, Albert Consulting Unavailable Slaby, Jose Consulting Unavailable Jason, Albert Admitting Unavailable Jason, Albert Attending Unavailable Slaby, Jose Referring Unavailable NAUMOFF, KADEN Primary Care Unavailable Jason, Albert Consulting Unavailable Vignesh, Collette S. Consulting Unavailable Slaby, Jose Consulting Unavailable Reynaldo Pizarro COMPRESSED YEAST SUPERVISOR-C Attending Unavailable NAUMOFF, KADEN Primary Care Unavailable Slaby, Jose Consulting Unavailable Slaby, Jose Attending Unavailable NAUMOFF, KADEN Primary Care Unavailable Slaby, Jose Consulting Unavailable Slaby, Jose Attending Unavailable NAUMOFF, KADEN Primary Care Unavailable Slaby, Jose Consulting Unavailable Jason, Albert Admitting Unavailable Slaby, Jose Attending Unavailable Slaby, Jose Referring Unavailable NAUMOFF, KADEN Primary Care Unavailable Jason, Albert Consulting Unavailable Vignesh, Collette S. Consulting Unavailable Slaby, Jose Consulting Unavailable Isckarus, Shashiour Attending Unavailable NAUMOFF, KADEN Primary Care Unavailable Isckarus, Mansour Referring Unavailable Marcanthony, Gini Consulting Unavailable Marcanthony, Gini Attending Unavailable Marcanthony, Gini Referring Unavailable NAUMOFF, KADEN Primary Care Unavailable ShoCarolyn torres COMPRESSED YEAST SUPERVISOR-C Consulting Unavailable Kate, Mackenzie Attending Unavailable NAUMOFF, KADEN Primary Care Unavailable SlabJose marlow Consulting Unavailable Saad Moran Attending Unavailable Dean, Saad Referring Unavailable NAUMOFF, KADEN Primary Care Unavailable Slabkashmir, Jose Attending Unavailable Slabkashmir, Jose Referring Unavailable Shook, Carolyn Khan COMPRESSED YEAST SUPERVISOR-C Attending Unavailable NAUMOFF, KADEN Referring Unavailable NAUMOFF, KADEN Primary Care Unavailable Reynaldo Pizarro COMPRESSED YEAST SUPERVISOR-C Attending Unavailable SlabJose marlow Referring Unavailable Jazzy Palmer Attending Unavailable NAUMOFF, KADEN Referring Unavailable Love, Mackenzie Attending Unavailable NAUMOFF, KADEN Primary Care Unavailable Slaby, Jose Consulting Unavailable Slabkashmir, Jose Attending Unavailable NAUMOFF, KADEN Primary Care Unavailable Jazzy Palmer Attending Unavailable NAUMOFF, KADEN Referring Unavailable Slabkashmir, Jose Attending Unavailable NAUMOFF, WHEATCROFT Primary Care Unavailable Jose Robertson Consulting Unavailable Jazzy Palmer Attending Unavailable NAUMOFF, WHEATCROFT Primary Care Unavailable Slabkashmir, Jose Consulting Unavailable Jazzy Palmer Attending Unavailable NAUMOFF, KADEN Referring Unavailable Oleghe, Efewongbe Attending Unavailable Oleghe, Efewongbe Referring Unavailable Oleghe Efewongbe Attending Unavailable Oleghe, Efewongbe Referring Unavailable Love, Mackenzie Attending Unavailable Love, Mackenzie Referring Unavailable Love, Mackenzie Attending Unavailable Love, Mackenzie Referring Unavailable Love, Mackenzie Attending Unavailable Love, Mackenzie Referring Unavailable Slaby, Jose Attending Unavailable Slaby, Jose Referring Unavailable NAUMOFF, KADEN Primary Care Unavailable Jacques Cheatham Attending Unavailable NAUMOFF, KADEN Referring Unavailable LindenJacques Attending Unavailable LindenJacques Referring Unavailable NAUMOFF, KADEN Primary Care Unavailable Love, Mackenzie Attending Unavailable Love, Mackenzie Referring Unavailable Love, Mackenzie Attending Unavailable Love, Mackenzie Referring Unavailable Slaby, Jose Attending Unavailable NAUMOFF, KADEN Referring Unavailable Slaby, Jose Attending Unavailable NAUMOFF, KADEN Primary Care Unavailable Oleghe, Efewongbe Attending Unavailable NAUMOFF, KADEN Referring Unavailable Shook, Carolyn Khan COMPRESSED YEAST SUPERVISOR-C Attending Unavailable NAUMOFF, KADEN Referring Unavailable Shook, Carolyn Khan COMPRESSED YEAST SUPERVISOR-C Attending Unavailable Shook, Carolyn Khan COMPRESSED YEAST SUPERVISOR-C Referring Unavailable Orlando Kumar Primary Care Unavailable Isckarus, Mansour Attending Unavailable NAUMOFF, KADEN Referring Unavailable NAUMOFF, KADEN Primary Care Unavailable Isckarus, Mansour Consulting Unavailable Slaby, Jose Attending Unavailable Slaby, Jose Referring Unavailable NAUMOFF, KADEN Primary Care Unavailable NAUMOFF, KADEN Primary Care Unavailable Ungur, Remus Attending Unavailable Isckarus, Mansour Attending Unavailable Isckarus, Mansour Referring Unavailable NAUMOFF, KADEN Primary Care Unavailable PITTINGER, JUDY A Attending Unavailable PITTINGER, JUDY A Attending Unavailable PITTINGER, JUDY A Attending Unavailable PITTINGER, JUDY A Attending Unavailable RIYA CARLTON, MS. FLYNN Rodríguez Attending Unavailable MARGARET HAYNES, DR. KADEN Khan Primary Care Unavailable [facility] Referring Unavailable PITTINGER, JUDY Attending Unavailable NAUMOFF, DEANN Primary Care Unavailable [facility] Referring Unavailable PITTINGER, JUDY Attending Unavailable NAUMOFF, DEANN Primary Care Unavailable [facility] Referring Unavailable PITTINGER, JUDY Attending Unavailable NAUMOFF, DEANN Primary Care Unavailable [facility] Referring Unavailable PITTINGER, JUDY Attending Unavailable NAUMOFF, DEANN Primary Care Unavailable [facility] Referring Unavailable PITTINGER, JUDY Attending Unavailable NAUMOFF, DEANN Primary Care Unavailable [facility] Referring Unavailable PITTINGER, JUDY Attending Unavailable NAUMOFF, DEANN Primary Care Unavailable [facility] Referring Unavailable PITTINGER, JUDY Attending Unavailable NAUMOFF, DEANN Primary Care Unavailable PROBLEMS PROBLEMS DATE TYPE CONDITION / CODE ATTENDING STATUS SOURCE 10/03/2018 Unknown N65.1 - Jose Robertson Active [place] Disproportion of Community reconstructed breast Hospital / N65.1(ICD-10) Repository 09/28/2018 Unknown G89.18 - Other acute Jose Robertson Active [place] postprocedural pain Community / G89.18(ICD-10) Hospital Repository 10/04/2018 Unknown M25.612 - Stiffness Jose Robertson Active [place] of left shoulder, Community not elsewhere Hospital classified / Repository M25.612(ICD-10) 09/19/2018 Unknown Z51.11 - Encounter Isckarus, Active [place] for antineoplastic [facility] chemotherapy / Hospital Z51.11(ICD-10) Repository 09/12/2018 Unknown C50.919 - Malignant Isckarus, Active [place] neoplasm of [facility] unspecified site of Hospital unspecified female Repository breast / C50.919(ICD-10) 09/19/2018 Unknown E03.9 - Carolyn Be Active [place] Hypothyroidism, J COMPRESSED YEAST SUPERVISOR-C Community unspecified / Hospital E03.9(ICD-10) Repository 08/26/2018 Unknown E07.9 - Disorder of Oleghe, Active [place] thyroid, unspecified [facility] / E07.9(ICD-10) Hospital Repository 08/16/2018 Unknown R10.13 - Epigastric Linden, Jacques Active [place] pain / Community R10.13(ICD-10) Hospital Repository 08/16/2018 Unknown L59.8 - Other Love, Active [place] specified disorders [facility] of the skin and Hospital subcutaneous tissue Repository related to radiation / L59.8(ICD-10) 08/04/2018 Unknown T66.XXXA - Radiation Oleghe, Active [place] sickness, [facility] unspecified, initial Hospital encounter / Repository T66.XXXA(ICD-10) 08/04/2018 Unknown L59.9 - Disorder of Oleghe, Active [place] the skin and [facility] subcutaneous tissue Hospital related to Repository radiation, unspecified / L59.9(ICD-10) 07/11/2018 Unknown N83.202 - Marcanthony, Active [place] Unspecified ovarian [facility] cyst, left side / Hospital N83.202(ICD-10) Repository 07/03/2018 Unknown C50.912 - Malignant Jose Robertson Active [place] neoplasm of Community unspecified site of Hospital left female breast / Repository C50.912(ICD-10) 06/13/2018 Unknown Z79.899 - Other long Isckarus, Active [place] term (current) drug [facility] therapy / Hospital Z79.899(ICD-10) Repository 06/18/2018 Unknown E66.9 - Obesity, Jose Robertson Active [place] unspecified / Community E66.9(ICD-10) Hospital Repository 03/29/2018 Unknown D64.9 - Anemia, Isckarus, Active [place] unspecified / [facility] D64.9(ICD-10) Hospital Repository 03/18/2018 Unknown K21.9 - Berger PA-C, Active [place] Gastro-esophageal Izabella Community reflux disease [facility] without esophagitis Repository / K21.9(ICD-10) 03/18/2018 Unknown Z80.0 - Family Celine HARRIS, Active [place] history of malignant [facility] neoplasm of Hospital digestive organs / Repository Z80.0(ICD-10) 02/22/2018 Unknown T81.4XXA - Infection Jsoe Robertson Active [place] following a Community procedure, initial Hospital encounter / Repository T81.4XXA(ICD-10) 02/22/2018 Unknown B96.89 - Other Jose Robertson Active [place] specified bacterial Community agents as the cause Hospital of diseases Repository classified elsewhere / B96.89(ICD-10) 02/10/2018 Unknown Z85.3 - Personal Isckarus, Active [place] history of malignant Mansour [facility] neoplasm of breast / Hospital Z85.3(ICD-10) Repository 02/15/2018 Unknown N65.0 - Deformity of Jose Robertson Active [place] reconstructed breast Community / N65.0(ICD-10) Hospital Repository 02/15/2018 Unknown T88.8XXD - Other Jose Robertson Active [place] specified Community complications of Hospital surgical and medical Repository care, not elsewhere classified, subsequent encounter / T88.8XXD(ICD-10) 02/15/2018 Unknown N64.4 - Mastodynia / Jose Robertson Active [place] N64.4(ICD-10) [facility] Repository 02/15/2018 Unknown T66.XXXS - Radiation Jose Robertson Active [place] sickness, Community unspecified, [facility] / T66.XXXS(ICD-10) Repository 02/15/2018 Unknown Z90.12 - Acquired SlabJose marlow Active [place] absence of left Community breast and nipple / Hospital Z90.12(ICD-10) Repository 02/15/2018 Unknown S21.002A - Jose Robertson Active [place] Unspecified open Community wound of left Hospital breast, initial Repository encounter / S21.002A(ICD-10) 01/28/2018 Unknown Z12.4 - Encounter Cari Active [place] for screening for Gini [facility] malignant neoplasm [facility] of cervix / Repository Z12.4(ICD-10) 02/09/2018 Unknown L90.5 - Scar SlabJose marlow Active [place] conditions and Community fibrosis of skin / Hospital L90.5(ICD-10) Repository 02/23/2018 Unknown R06.02 - Shortness Lauro, Francisco Active [place] of breath / Community R06.02(ICD-10) Hospital Repository 12/28/2017 Unknown N93.8 - Other [place], Active [place] specified abnormal [facility] uterine and vaginal Hospital bleeding / Repository N93.8(ICD-10) 12/28/2017 Unknown Z79.810 - senior living [place], Active [place] (current) use of [facility] selective estrogen Hospital receptor modulators Repository (SERMs) / Z79.810(ICD-10) 12/21/2017 Active Anxiety disorder, PITTINGER, Active [place] unspecified / [facility] Other F41.9(ICD-10) [place] Repository 12/21/2017 Active Major depressive PITTINGER, Active [place] disorder, recurrent, [facility] Other moderate / [place] F33.1(ICD-10) Repository 12/21/2017 Admitting Unknown / PITTINGER, Active [place] [facility] diagnosis UNK(Unknown) [facility] Repository 12/14/2017 Unknown Z51.0 - Encounter Devon Xiong Active [place] for antineoplastic [facility] radiation therapy / Hospital Z51.0(ICD-10) Repository 12/09/2017 Unknown Z92.29 - Personal Emmanuel, Active [place] history of other Erica [facility] drug therapy / Hospital Z92.29(ICD-10) Repository 10/21/2017 Unknown R41.82 - Altered Isckarus, Active [place] mental status, [facility] unspecified / Hospital R41.82(ICD-10) Repository PROCEDURES PROCEDURES No Procedure Records FoundRESULTS RESULTS OPERATIVE REPORT Observed: 10/03/2018 Status: F Source: [place] 4:17 PM [facility] RE[facility]ITORY [facility] Medical Records Department [address] [place] [address] Operative Report 09/28/181945 MR#: [id number] Acct: [id number] Name: GAIL LACEY Rep #: [id number] : 1985 33 From: [place] Robertson MD PCP: Kaden Robles MD Status: DEP [facility] [place] Y Location: [facility] [place] [facility] Report of Operation Date of Procedure: 09/27/18 Pre-Operative Diagnosis: 1. Left breast cancer. 2. Disproportion reconstructed left breast. 3. 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 4. s/p lumpectomy left breast with chemotherapy and radiation therapy. 5. s/p completion mastectomy left breast. 6. Late effect radiation left breast. Post-Operative Diagnosis: Same. Surgery/Procedure Performed:: Revision reconstructed left breast with excision painful soft tissue radionecrosis scar deformity and excision painful excess mastectomy skin scar contour deformity. Description of Surgical Findings:: 33 year old woman presents with left breast cancer that necessitated initially a lumpectomy and then later on a completion mastectomy. She had chemotherapy and radiation therapy postop. The completion mastectomy was not closed because it had already been radiated. Healing was slow with Silver dressing changes and the VAC and antibiotics. The wound almost healed but there remained a smaller residual wound. The wound had been improving with decreased size, but she was having persistent pain in her left mastectomy wound. At the time of her completion mastectomy, wound cultures were obtained. They showed Acinetobacter radioresistens and MRSE. She was treated with IV Ceftriaxone and tolerated the antibiotics. On 06/24/18 she underwent revision reconstructed left breast with excision painful nonhealing radiation ulcer and excision painful excess mastectomy skin scar contour deformity. She had no issues with healing initially. However she developed persistent pain in her mastectomy scar medially secondary to her radiation scar contour deformity. The pain is exacerbated with activity. Further revision breast reconstruction surgery was planned. Patient was informed of the risks and complications of the procedure including alternatives to surgery. These were discussed with the patient personally. Patient voices understanding and wishes to proceed. Some of the risks and complications were included in a form from the [employer]. I used Pola absorbable hemostat, (I used 2 vials). Reference Number - [id number]. Lot Number - [id number]. Expiration - May 14, 2023. log raft worker: Basilia Andrew. Type of Anesthesia:: General Specimen's removed: Left breast tissue and radionecrosis scar tissue to Pathology and Microbiology. Drains: Nataly. Estimated Blood Loss (mL): 50 ml. Description of Procedure: Patient was seen in the preop area. She was placed in sitting position and markings were made. I wanted to have her lift her left arm up as I decided how much skin to excise. Most of the excess skin and painful symptomatology is in the medial aspect. A lesser amount is seen laterally. Patient was taken to OR in supine position and was placed under general anesthesia. The left breast was prepped and draped in the usual fashion. SCD's were placed for DVT prophylaxis. Perioperative antibiotics were given intravenously. Using xylocaine with epinephrine, the left breast was infiltrated. After waiting 5 minutes for the anesthetic to take effect, I excised the firm indurated area of soft tissue radionecrosis and excess painful mastectomy skin scar contour deformity medially and to a lesser extent in the lateral aspect by the axilla. The dissection was carried down through the subcutaneous tissue until the underlying muscle was seen. There was a lot of dense fibrotic scar tissue on the muscle which was excised to help with postop symptomatic relief. The extra bruising on the muscle from the excision of this dense fibrotic scar tissue will lead to extra muscle spasm in the initial postop period. I will stress to the patient the importance of taking her Valium to help with the anticipated muscle spasm. The tissue that was excised will be sent to Pathology for analysis to rule out carcinoma. Some of the tissue was sent to Microbiology for culture. A positive culture will necessitate antibiotic therapy. Hemostasis was obtained with electrocautery. The wound was irrigated with saline. The breast tissue was soft after aggressively excising the firm indurated soft tissue radionecrosis. A size 15 Nataly drain was placed through separate stab incision inferiorly and laterally and secured to the skin with 3-0 Nylon interrupted suture. I then sprayed Pola absorbable hemostat into the left breast mastectomy wound to minimize seroma postoperatively. I used 2 vials of Pola. I then closed the left breast mastectomy wound with 2-0 Vicryl figure of eight interrupted suture for the deep subcutaneous tissue and fascia. The deep dermis and subcutaneous tissue was approximated with 3-0 Monocryl interrupted sutures. The skin was approximated with 3-0 V-lock unidirectional barbed running subcuticular suture. This was followed by Histoacryl skin tissue adhesive followed by Kerlix gauze and ABD pads compression dressing. This was followed by a compression LONA wrap. Patient tolerated the procedure well and was sent to PACU in satisfactory condition. Patient will be sent home on antibiotics and pain medication. Patient will followup in a week for a wound check and for discussion of the pathology report and for discussion of the microbiology report. A positive culture may necessitate antibiotic modification. The drain will be removed in 2 weeks. Grafts/Implants Used: None. - Complications None. - Admit VTE Documentation VTE Present on Admission: No VTE Mechan Device Prophylaxis: SCD's VTE Pharm Prophylaxis ordered?: No Code Visit Surgery Charges CPT - 63406 ICD-10 - C50.912, N65.1, N65.0, T66.xxxS, Z90.12, N64.4 10/03/18 1617 <Electronically signed by Jose Robertson MD> Date Jose Robertson MD CC: Kaden Robles MD; Jose Robertson MD Signed HISTORY AND PHYSICAL Observed: 09/28/2018 Status: F Source: [place] EXAM 10:47 PM [facility] REPOSITORY [facility] Medical Records Department [address] [place] [id number] History and Physical 09/26/18 2350 MR#: [id number] Acct: [id number] Name: GAIL LACEY Rep #: [id number] : 1985 33 From: Jose Robertson MD PCP: Kaden Robles MD Status: [facility] Location: [facility] [place] History and Physical Date of Admission: 09/27/18 HISTORY OF PRESENT ILLNESS 33 year old woman presents with left breast cancer that necessitated initially a lumpectomy and then later on a completion mastectomy. She had chemotherapy and radiation therapy postop. The completion mastectomy was not closed because it had already been radiated. Healing was slow with Silver dressing changes and the VAC and antibiotics. The wound almost healed but there remained a smaller residual wound. The wound had been improving with decreased size, but she was having persistent pain in her left mastectomy wound. At the time of her completion mastectomy, wound cultures were obtained. They showed Acinetobacter radioresistens and MRSE. She was treated with IV Ceftriaxone and tolerated the antibiotics. On 06/24/18 she underwent revision reconstructed left breast with excision painful nonhealing radiation ulcer and excision painful excess mastectomy skin scar contour deformity. She had no issues with healing initially. However she developed persistent pain in her mastectomy scar medially secondary to her radiation scar contour deformity. The pain is exacerbated with activity. She presents today for further revision of her reconstructed left breast. 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 Pneumonia STEVE Chronic back pain Nonhealing post-lumpectomy seroma ulcer left lateral breast Chemotherapy induced neutropenia PAST SURGICAL HISTORY: [place] teeth 2002 all 4 [place]art 2007 Partial Mastectomy 04/06/17 - getting chemotherapy and will follow with radiation therapy Port Placement 05/03 Hospital-Febrile Neutropenia discharged 07/14/17 Occasional psychiatric hospitalized [id number] surgical preparation left lateral breast with incision and drainage and excision nonhealing post-lumpectomy seroma ulcer with 9 cm complex secondary wound closure - 08/05/17 Revision left breast reconstruction with excision painful infected lateral radiation lumpectomy scar contour deformity with completion mastectomy - 01/04/18 Revision reconstructed left breast with excision painful nonhealing radiation ulcer and excision painful excess mastectomy skin scar contour deformity - 06/24/18 MEDICATIONS Ventolin. Levothyroxine. Liothyronine. ALLERGIES Dilaudid. Morphine. Tape. FAMILY HISTORY: Mother (biol.) - Has Family History of Depression Mother (biol.) - Has Family History of Thyroid Disorder Mother (biol.) - Has Family History of Psychiatric Care Father (biol.) - Has Family History of Hypertension Father (biol.) - Has Family History of High Cholesterol Aunt - Has Family History of Seizures PGM - Has Family History of Other Cancer PGF - Has Family History of Diabetes PGF - Has Family History of Heart Disease PGM - Has Family History of Colon Cancer SOCIAL HISTORY: Drug Use - no Patient is a former smoker. Patient does not drink alcohol. REVIEW OF SYSTEMS General - Denies fever. Has some weight loss and fatigue. Eyes -Denies: Pain HEENT - Denies: Nasal Congestion, Sore Throat Cardiovascular - Denies Chest Pain. Has fatigue. Denies shortness of breath with exertion. Respiratory - patient is a former smoker.. Denies: Cough, Shortness of Breath Gastrointestinal - Has Constipation, Diarrhea. Denies: Nausea, Vomiting Genitourinary - Denies: Frequency, Hematuria Musculoskeletal - Reports: Back Pain, - - has left lateral rib pain. Denies: Hand Pain, Leg Pain, Muscle pain, Neck Pain Skin - Has lumpectomy scar left lateral breast with pain. Pain also radiates laterally onto left lateral rib pain and axillary rib pain. Neuro - Has Headaches Psych - Has Anxiety, Depression Endocrine - Denies Polydipsia, Polyuria Hematologic - Denies Easy Bruising, Hx of blood clot PHYSICAL EXAMINATION General - Alert and oriented. Her bra size is D-DD. HEENT - PERRLA, EOMI Neck - Supple and nontender. No cervical adenopathy. Chest wall - There is tenderness to palpation in the left lateral chest wall over the ribs and extending onto the axillary area. No fluctuance or purulent drainage. Breasts - There is a left lateral breast scar from lumpectomy in 04/03. There is an indentation deformity. Very tender to palpation. The left breast is tender to palpation mostly laterally. No redness. Increased swelling and edema especially around the nipple areolar complex area. No fluctuance. The right breast is a little larger. Slight Stage II ptosis. Lungs - Clear to auscultation Heart - Regular rate, Regular Rhythm Abdomen - Soft, Non-Distended Extremities - No clubbing, No cyanosis, No edema, Peripheral Pulses Normal Lymphatic - no axillary adenopathy. Neuro - Cranial nerves II-XII grossly intact Psych - Normal Affect, Appropriate ASSESSMENT 1. Left breast cancer. 2. Disproportion reconstructed left breast. 3. 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 4. s/p lumpectomy left breast with chemotherapy and radiation therapy. 5. s/p completion mastectomy left breast. 6. Late effect radiation left breast. 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 She has persistent pain in the medial aspect left breast mastectomy scar contour deformity with associated painful radiation scar contour deformity. To improve her painful symptomatology, it was recommended to the patient to proceed with revision reconstructed left breast with excision painful radiation scar contour deformity and excess painful mastectomy skin scar contour deformity. Will send tissue to Pathology for analysis to rule out carcinoma. Will also send tissue to Microbiology for culture. A positive culture will necessitate antibiotic therapy. To minimize seroma formation postop, I will place a drain. I will also spray Pola absorbable hemostat into the ulcer to minimize seroma formation. After surgery, she would benefit from further HBO treatments. She will be maintained on antibiotics at least until the drains are removed. Will wear a compression LONA wrap on her chest wall to minimize seroma as well. Surgery will be done under general anesthesia with a surgical observation overnight stay in the hospital. Patient was informed of the risks and complications of the procedure including alternatives to surgery. These were discussed with the patient personally. Patient voices understanding and wishes to proceed. 09/28/18 2247 <Electronically signed by Jose Robertson MD> Date Jose Robertson MD Cosigner Signature: Date (if applicable) CC: Kaden Robles MD; Jose Robertson MD Signed DISCHARGE INSTRUCTION Observed: 09/27/2018 Status: F Source: [place] 10:19 AM [facility] REPOSITORY [facility] Medical Records Department [address] [place] [address] Instructions for Home/Discharge Instructions 09/27/18 1015 MR#: [id number] Acct: [id number] Name: GAIL LACEY Rep #: [id number] : 1985 33 From: Jose Robertson MD PCP: Kaden Robles MD Status: REG [facility] [place] You will use the following diet at home:: No restrictions, Other - encourage nutritional supplementation with protein to help the healing process. Discharge Activity: May not drive while taking narcotic pain medications., May Not Shower - until the drain is removed., - - no heavy lifting. May shower in (days): 14 - after the drain is removed in the office. May resume sexual activity in: 10-14 days Weight Bearing Status: Weight bearing as tolerated Lifting Restrictions: 20 lbs. Keep extremity elevated above heart level: Left Arm Additional Activity Instructions:: may continue gentle range of motion exercises left shoulder to minimize stiffness. Call your doctor if your incision/area has: Continuous Slow Oozing, Sudden Increased Bleeding, Increased Pain/ Swelling, Increased Redness, Foul Smelling Discharge, Swelling at the incision site Call your doctor if you observe: Fever of 101 or Higher, Coldness, Increased Pain, Shortness of breath, Chest pain, Calf discomfort, Uncontrolled pain Suture Line Care: - - dry dressing daily. Change Dressing in (Days):: 2 - dry dressing daily. Cleanse incision/area with: - - may get incision wet in the shower after the drain is removed in the office. Drain: Suction - nataly drain to bulb suction. empty and record output daily. Allergies/Adverse Reactions: Allergies hydromorphone [From Dilaudid] Allergy (Severe, Verified 09/20/18 13:52) Laryngospasms morphine Allergy (Severe, Verified 09/20/18 13:52) chest tightening TAPE Adverse Reaction (Mild, Uncoded 09/12/18 09:04) Other Medications to take at Discharge armodafinil 50 mg tablet 50 mg PO QAM 08/26/18 Levothyroxine Sodium [Synthroid] 25 mcg PO MOTUWETHFRSA 09/12/18 Dextroamphetamine Sulfate [Dextroamphetamine Sulfate ER] 15 mg PO BID 09/14/18 Digestive 8/L.acidoph/Pectin [Digestive Enzymes Tablet] 1 each PO BID 09/20/18 Iron Polysaccharide Complex [Ferrex 150] 150 mg PO DAILYCM 09/20/18 L.acidoph,Paracasei, B.lactis [Probiotic] 1 each PO DAILY 09/20/18 Multivitamin [Multiple Vitamins] 1 each PO DAILY 09/20/18 Amox/Clavulanate Tablet [Augmentin Tablet] 875 mg PO BID #28 tab 09/27/18 Diazepam [Valium] 4 - 8 mg PO 4X/DAY PRN PRN #40 tab 09/27/18 Docusate Sodium [Colace] 100 mg PO BID #60 cap 09/27/18 Ondansetron [Zofran] 8 mg PO TID PRN PRN #30 tab 09/27/18 Oxycodone HCl/Acetaminophen [Percocet 5/325] 1 - 2 tab PO 4X/DAY PRN PRN 7 Days #50 tab 09/27/18 The following prescriptions were given: Diazepam [Valium] 4 - 8 mg PO 4X/DAY PRN PRN #40 tab PRN Reason: Spasms Ondansetron [Zofran] 8 mg PO TID PRN PRN #30 tab PRN Reason: Nausea Oxycodone HCl/Acetaminophen [Percocet 5/325] 1 - 2 tab PO 4X/DAY PRN PRN 7 Days #50 tab PRN Reason: Pain Amox/Clavulanate Tablet [Augmentin Tablet] 875 mg PO BID #28 tab Docusate Sodium [Colace] 100 mg PO BID #60 cap Primary Care Physician: Kaden Robles MD [Primary Care Provider] - Test Results: Test results from this visit will be discussed in further detail at your follow-up appointment, if applicable. Please Follow Up With: Jose Robertson MD When: one week. call [phone] for appt. Proposed Discharge Date: 09/27/18 09/27/18 1019 <Electronically signed by Jose Robertson MD> Date Jose Robertson MD CC: Kaden Robles MD Observed: 09/27/2018 Status: F Source: [place] CULTURE, DEEP WOUND 9:30 AM [facility] REPOSITORY Order Date: 05/19/17 List Antibiotics Last 48 Hours? UNASYN Has pt arrived? Y Comments: LEFT BREAST TISSUE Gram Stain Gram Stain 4+ Red Blood Cells Rare White Blood Cells No organisms seen Wound Culture No growth aerobically. Cult, Anaerobic No growth in 5 days. Performed By: #### M100.1500 #### [facility] [address] [place], [address] ,URINE Collected: 09/27/2018 Status: F Source: [place] 7:00 AM [facility] REPOSITORY TYPE CODE TESTS RESULT OUT OF REFERENCE UNITS RANGE LAB L400.8000 Negative Normal HCGUQUAL Negative Result Comment: Very dilute urine specimens, as indicated by a low specific gravity, may not contain treasury representative levels of hCG. If is still suspected, a first morning urine specimen should be collected 48 hours later and tested. Performed By: #### L400.7600 #### [facility] [address] [place], [address] BREAST BIOPSY Observed: 09/27/2018 Status: F Source: [place] (CHOOSE SITE) 12:00 AM [facility] REPOSITORY Patient: GAIL LACEY : 1985 (33/F) Acct Num: [id number] Phys: Marcelo TREVIZO,Jose Unit Num: [id number] Loc: [facility] [place] Specimen: [id number] Received: 09/27/181325 Spec Type: BREAST BX TISSUES 1 TISSUES: Left breast, NOS GROSS DESCRIPTION Received in fixative is one container labeled with the patient's name and designated left breast tissue. The specimen consists of two pieces of skin with underlying tissue that in aggregate measure 15 x 7.5 cm and up to 4 cm in thickness. Also present in the container are multiple pieces of hernandez, indurated tissue that in aggregate measure 12 x 8 x 1 cm. The skin surface shows a healed scar. Sections do not reveal any mass lesion. Knot Bumper sections are submitted in four cassettes. Cassette 1 also contains the skin piece. / SJ:sharon 09/28/18 TC:5 CPT: 48716 HEADER OPERATION: Revision reconstructed breast with excision soft tissue PRE-OP DIAGNOSIS: Left breast cancer; disproportion reconstructed left breast; late effect radiation left breast TISSUE SUBMITTED: Left breast tissue MICROSCOPIC DESCRIPTION Slides are reviewed. MICROSCOPIC DIAGNOSIS Left breast tissue, revision reconstructed breast: Pieces of skin with underlying tissue, fibroadipose tissue and skeletal muscle tissue with focal fat necrosis, chronic inflammation and foreign body giant cell reaction. SJ:sharon 09/29/18 Signed Zaheer Moura 09/29/18 <signature on file> Performed By: #### PBRBX #### [facility] [address] [place], [address] ONC ECHOCARDIOGRAM Observed: 09/26/2018 Status: F Source: [place] COMPLETE 5:00 PM [facility] REPOSITORY [facility] Cardiovascular Services [address] [place] [address] ONC Echo Complete 09/26/18 1304 MR#: [id number] Acct: [id number] Name: GAIL LACEY Rep #: [id number] : 1985 33 From: Francisco Restrepo MD Attending Dr: Owen Edouard MD Status: REG CLI Ordering Dr: Owen Edouard MD Date: 09/26/18 Location: [facility] Sex: F C Admitted: Version 2 Reason For Study: High risk meds, post chemo Procedure This was a 2D Doppler, Color Flow transthoracic echocardiogram. Exam performed in department. Left Ventricle Normal LV size. Left ventricular systolic function is normal. The global longitudinal strain = -21.6 % (normal). The estimated ejection fraction is 65 %. No regional wall motion abnormalities noted. Right Ventricle Normal RV size. Normal systolic function. Atria Normal left atrium. Normal right atrium. Mitral Valve Normal mitral valve. Tricuspid Valve Normal tricuspid valve. Aortic Valve Normal aortic valve. Trisinus/trileaflet aortic valve. Pulmonic Valve Normal pulmonic valve. Great Vessels Normal aortic root. The pulmonary artery is normal size. Normal inferior vena cava. Pericardium/Pleural No pericardial effusion. MMode/2D Measurements AND Calculations LVIDd: 4.3 cm IVSd: 0.81 cm Ao root diam: 2.7 cm LVIDs: 3.1 cm LVPWd: 0.83 cm RVDd: 3.1 cm FS: 28.4 % LAV(MOD-bp): 36.5 ml EDV(MOD-sp4): 87.2 ml EDV(MOD-sp2): 79.9 ml LAV(MOD-bp) Indexed: 17.5 ml/m2 ESV(MOD-sp4): 33.3 ml EF(MOD-sp2): 64.3 % LAV(MOD-sp2): 42.9 ml EF(MOD-sp4): 61.9 % LAV(MOD-sp4): 29.0 ml SV(MOD-sp4): 54.0 ml SV(MOD-sp2): 51.4 ml LA A4 area: 12.6 cm2 LA dimension(2D): 3.0 cm RA A4 area: 10.1 cm2 Doppler Measurements AND Calculations MV E max nash: 91.0 cm/sec Lat Peak E' Nash: 16.5 cm/sec Med Peak E' Nash: 13.0 cm/sec MV A max nash: 72.2 cm/sec E/E' lat: 5.5 E/E' med: 7.0 MV E/A: 1.3 Ao V2 max: 159.7 cm/sec LV V1 max: 114.3 cm/sec PA V2 max: 100.8 cm/sec Ao max P.2 mmHg LV V1 max P.2 mmHg Interpretation Summary Normal LV size. Left ventricular systolic function is normal. The global longitudinal strain = -21.6 % (normal). The estimated ejection fraction is 65 %. Structurally normal valves. Compared to previous study, the left ventricular systolic function is the same.. Ordering Physician: Owen Edouard Referring Physician: Kaden Robles Performed By: Gaye Serna RD 09/26/18 1701 Date Francisco Restrepo MD CC: Kaden Robles MD; Owen Edouard MD Date Dictated: 09/26/18 1304 Date Transcribed: 09/26/181699 Bridge Painter Helper: Signed OT GENERAL EVALUATION Observed: 09/21/2018 Status: F Source: [place] 3:02 PM [facility] REPOSITORY [facility] Occupational Therapy [facility] [place] [address] Fax REHABILITATION SERVICES INITIAL EVALUATION MR#: [id number] Acct: [id number] Name: GAIL LACEY Rep #: [id number] : 1985 33 From: Randi PITTS CHT Referring Dr.: Jose Robertson MD Status: REG R Insurance: [facility] Date: SELF PAY INSURANCE Patient's Visit Information GAIL LACEY is a 33 year old F, referred to Occupational Therapy by Jose Robertson, with a diagnosis of breast cancer. Date of Evaluation: 09/15/18 Occupational Therapist: HONG Montoya CHT - Subjective Subjective: Diagnosed with breast cancer March 2017- April 06 2017 partial masectomy- July 2017 debridement- January 04 completion Masectomy- Jun [address] Gloria and Dr. Robertson were the surgeons. Possibly September or next year a revision- currently will not have reconstruction. Chemo in May- september 122016 was last day- May 23 of this year- radiation ended november 10. Still being monitored MD at hospital- today is last day of hyperbaric- incisions are closed. Currently the majority of the incision she has no feeling- has a small amount of breast tissue which is painful. Pain radiates into the left axillay. Has pain on the ribs and then down to the elbow. Skin Sensitivitiy- hypersensitive. Pt completed PT for left shoulder ROM and posture. Pt states she has difficulty with energy levels. pt to have sx- of left side to remove further tissue. - Pain left scar 0 Pain Intensity Range: 0, 7 - Objective Objective/Observation: pt demo with left masectomy scar- incision is healed, but pt demo with hypersensitivity around incison about a two inc radius of incision. - Lymphedema (Circumferential Measure) MCP: right 20.5cm left 20.5cm Wrist: right 18cm left 17cm Lower forearm: right 20cm left 20cm Largest forearm: right 27cm left 26cm Elbow: right 28cm left 27cm Largest humerus: right 32cm left 32cm Axcillary: right 37cm left 37cm - Sensation Sensation Comments: around scar incisions - DASH-Disabilities of Arm, Shoulder AND Hand DASH Sum: 68 - Goals Goal:: pt will report pain no greater than 1/10 when weaing clothing/bra for 6 hours or longer by d/c Goal:: pt will demo understanding of scar mtg/ desensitization landon. by end of 3rd session. Pt will demo increase carolyne. of scar mtg for greater than 45 min to increase pts carolyne. to wearing clothing/bra for greater than 6 hours by d/c - Rehabilitation General Assessment: PT demo with hypersensitive scar tissue following a left masectomy. This limits pts ability to tolerate showering, washing and bra use. Pt demo need for skilled OT services 1-2x week for 4 weeks to complete scar mtg and desensitzation to return pt to becoming ind. with Bathing/dressing etc. Rehabilitation Potential: Good - Anticipated Interventions Anticipated Interventions: A/AAROM/PROM, Scar Care, Desensitization, Education re Diagnosis, Home Program - Visit Plan Frequency: 1-2x /Week Duration: 4 Weeks TEXT: Thank you for the opportunity to evaluate your patient. For Medicare and Medicare HMO plans, please review the plan of care and approve it. It will need to be FAXED BACK to us at [phone] for Medicare purposes. Please let me know if there are questions or concerns regarding this plan of care. Physician Signature: Date: <Electronically signed by Randi PITTS CHT> 09/21/18 1502 CC: Kaden Robles MD; Jose Robertson MD MK Signed For Medicare only, by signing this I certify the plan of care. Physicians Signature Date DISCHARGE INSTRUCTION Observed: 09/14/2018 Status: F Source: [place] 9:43 PM [facility] REPOSITORY [facility] Medical Records Department [address] [place] [address] Discharge Instruction 09/14/182141 MR#: [id number] Acct: [id number] Name: GAIL LACEY Rep #: [id number] : 1985 33 From: Hannah Wasserman DO PCP: Kaden Robles MD Status: REG ER ED Disposition - Plan for ED Patient: Chief Complaint: Weakness Instructions: What Is Narcolepsy?, ED Stress React Referrals: Kaden Robles MD [Primary Care Provider] - Yfn Castillo MD [STAFF PHYSICIAN] - 3-5 Days What to do if you have Problems For any increased pain, shortness of breath, bleeding, nausea or vomiting, chest pain, or any unexpected problems, contact your Primary Care Provider. Call [facility] ([phone]) or report to the closest Emergency Room. Call 911 if necessary. 09/14/182142 <Electronically signed by Hannah Wasserman DO> Date Hannah Wasserman DO Cosigner Signature (If Indicated): Date CC: Kaden Robles MD EMERGENCY DEPARTMENT Observed: 09/14/2018 Status: F Source: [place] SUMMARY 9:42 PM [facility] REPOSITORY [facility] Medical Records Department [address] [place] [address] Emergency Department Summary 09/14/18 2138 MR#: [id number] Acct: [id number] Name: GAIL LACEY Rep #: [id number] : 1985 33 From: Hannah Wasserman DO PCP: Kaden Robles MD Status: REG ER - ER Visit Summary Date of Service: 09/14/18 Chief Complaint: [Weakness] History of Present Illness: The patient is a 33 F [presents to the emergency department complaint of inability to move her arms or legs. Patient states that she was driving home when she started feeling somewhat weak and did not feel like she could use her arms and continue to drive. Patient pulled over into a parking lot and states that she panicked and called EMS. Patient has had similar symptoms like this multiple times in the past and has been diagnosed with narcolepsy and cataplexy. Patient also has history of anxiety and sleep apnea. Patient denies any headache. Patient states that she has had some intermittent chest discomfort left side of her chest for the last several weeks. Pain is sharp and stabbing and usually resolves after less than 5 minutes.] States that she did have one christ drink tonight. She denies any recent stressors. Physical Examination: [HEENT-PERRLA, EOMI. Cranial nerves II through XII grossly intact. TMs clear. Mucous membranes moist. No adenopathy. Cardiovascular-regular rate and rhythm without murmur or ectopy Lungs-clear to auscultation, chest wall stable without crepitus or subcu emphysema Abdomen-normoactive bowel sounds, soft, nontender, no rebound or rigidity, no peritoneal signs. Neuro exam-no facial droop. Patient does not move her upper or lower extremities. Babinski's are downgoing bilaterally. Tendon reflexes are plus out of 4 bilaterally in the upper and lower extremities. Has normal sensation in the upper and lower extremities. Extremities-intact 4, normal range of motion, normal pulses, atraumatic] Test Results: [CBC with differential obtained was normal. Chemistries showed sodium 141, potassium 3.4, chloride 108, CO2 25, glucose 136, BUN 13, creatinine 0.77. D-dimer was less than 0.27.] Emergency Department Course and Treatment: [Patient received 40 mEq of potassium chloride p.o. On repeat examination patient now tells me that she is lost the ability to speak but now she is able to use her arms. Patient regain use of her legs as well but then started to lose once again the ability to use her legs.] Treatment Plan: [She will be observed in the department until such time she is ready to go home.] Disposition: [Discharged home in stable condition] Impression: [Cataplexy Anxiety] This note was generated with Master Route dictation software. It may contain incorrect words, spelling, and punctuation that were not noted in review of the chart prior to signing ED Disposition - Plan for ED Patient: Chief Complaint: Weakness Referrals: Kaden Robles MD [Primary Care Provider] - What to do if you have Problems For any increased pain, shortness of breath, bleeding, nausea or vomiting, chest pain, or any unexpected problems, contact your Primary Care Provider. Call [facility] ([phone]) or report to the closest Emergency Room. Call 911 if necessary. 09/14/182141 <Electronically signed by Hannah Wasserman DO> Date Hannah Wasserman DO Cosigner Signature (If Indicated): Date CC: Kaden Robles MD CBC W/DIFF, AUTOMATED Collected: 09/14/2018 Status: F Source: [place] 8:50 PM [facility] REPOSITORY TYPE CODE TESTS RESULT OUT OF RANGE REFERENCE UNITS LAB L100.1000 4.4-11.0 K/mm3 Normal WBC 5.7 LAB L100.1200 4.2-5.4 M/mm3 Normal RBC 4.31 LAB L100.1300 12.0-15.0 g/dl Normal HGB 12.6 LAB L100.1400 37-47 % Normal HCT 37.0 LAB L100.1500 81-99 fL Normal MCV 85.8 LAB L100.1600 27.0-32.0 pg Normal MCH 29.2 LAB L100.1700 32-36 g/gl Normal MCHC 34.1 LAB L100.1810 11.6-14.6 % Normal RDW CV 13.2 LAB L100.1820 35.1-43.9 fl Normal RDW SD 41.7 LAB L100.1900 150-450 K/mm3 Low PLT 141 LAB L100.2000 6.2-12.0 fl Normal MPV 7.8 LAB L100.2100 47-70 % Normal NEUT% 59.8 LAB L100.2200 19-41 % Normal LY% 32.2 LAB L100.2300 0-10 % Normal MONO% 5.1 LAB L100.2400 0-5 % Normal EO% 2.3 LAB L100.2500 0-1 % Normal BASO% 0.4 LAB L100.2550 0.0-0.9 % Normal IM GRAN % 0.200 Result Comment: IG% - Immature Granulocytes (promyelocytes, myelocytes and metamyelocytes) > 1% indicates that a LEFT SHIFT is Present. LAB L100.2620 2.0-7.7 X10 3/uL Normal Absolute Neut 3.4 LAB L100.2720 0.83-4.51 X10 3/ul Normal Absolute Lymph 1.82 Performed By: #### L100.0100 #### [facility] [address] [place], [place], [id number] BASIC METABOLIC Collected: 09/14/2018 Status: F Source: [place] PROFILE (BMP) 8:50 PM [facility] REPOSITORY TYPE CODE TESTS RESULT OUT OF RANGE REFERENCE UNITS LAB L501.0100 74-106 mg/dL High GLU 136 Result Comment: Fasting Glucose result greater than or equal to 126 mg/dL suggests DIABETES MELLITUS per A.D.A. criteria. Please note revised GLUCOSE reference range effective 2017. LAB L501.1000 7-18 mg/dL Normal BUN 13 LAB L501.1100 0.55-1.02 mg/dL Normal CREAT,SERUM 0.77 Result Comment: The validity of the calculated GFR AND GFRAA in patients over 70 years has not been determined. Clinical correlation is essential. LAB L501.1110 >60 mL/min Normal EST GFR 91 Result Comment: Non- GFR Calc LAB L501.1115 >60 mL/min Normal EST GFR - AA 110 Result Comment: GFR Calc LAB L501.1255 ml/min Normal Estimated CRCL 103.85 LAB L501.1300 10-20 RATIO BUN/CRE Normal 16.8 LAB L501.2200 8.5-10 mg/dL Low .1 CA 8.3 LAB L501.5300 136-14 mmol/L 5 NA Normal 141 LAB L501.5600 3.5-5. mmol/L Low 1 K 3.4 LAB L501.5900 98-107 mmol/L High CL 108 LAB L501.6100 21.0-3 mmol/L 2.0 CO2 Normal 25.0 LAB L501.6200 5-15 GAP Normal 8 Performed By: #### L500.2500 #### [facility] [address] [place], [place], [address] D-DIMER QUANTITATIVE Collected: 09/14/2018 Status: F Source: [place] (DVT/PE) 8:50 PM [facility] REPOSITORY TYPE CODE TESTS RESULT OUT OF RANGE REFERENCE UNITS LAB L300.8000 0.27-0.49 FEU/ug/m Low D-DIMER < 0.27 QUANT Result Comment: NORMAL D-Dimer level (<0.50) indicates no DVT or PE. NORMAL D-Dimer level (<0.50) indicates no DVT or PE. Performed By: #### L300.8000 #### [facility] [address] [place], [place], [address] RE-EVALUATION - PT (1) Observed: 09/13/2018 Status: F Source: [place] 2:35 PM [facility] REPOSITORY [facility] [address] [place] [address] Fax REEVALUATION / MEDICARE RECERTIFICATION PHYSICAL THERAPY MR#: [id number] Acct: [id number] Name: GAIL LACEY Rep #: [id number] : 1985 33 From: Marian Jensen DPT Referring Dr.: Jose Robertson MD Status: REG RCR Insurance: [employer] Jose Robertson, It has been my pleasure to treat GAIL LACEY over the last 6 visits for Breast Cancer. Please see the progress note below for an update on the physical therapy plan of care! Subjective: Patient reports that she was able to maintain full ROM over the last week -she is back to all normal activites but the pain is bad at night. sees OT on for scar managment also plans to have another revision Sep 27 Objective/Function: Posture: good throughout. ROM: WNL in all planes of the cervical spine and shoulder. Strength: 5/5 throughout shoulder, elbow and wrist. Plan Plan: Hold- will have another surgery then follow up with PT as needed Goals Goal 1:: Patient will be I with HEP and progression Goal Time Frame: 4-6 Weeks Goal Progress: Goal Met Goal 2:: Patient will demo full AROM of the left shoulder Goal Time Frame: 4-6 Weeks Goal Progress: Goal Met Goal 3:: Patient will demo 4+/5 strength in UE Goal Time Frame: 4-6 Weeks Goal Progress: Goal Met Goal 4:: Patient will maitain proper posture t/o tx session to demo increased scap s/s. Goal Time Frame: 4-6 Weeks Goal Progress: Goal Met Anticipated Interventions Patient/Client Instruction: Educate patient on: Benefits of Fitness Program Therapeutic Exercise to Include: Strength training, Agility training, Body mechanics, Postural training, Passive ROM, Active ROM, Scapular Strength/Stabilization For the Purpose of:: To improve muscle performance and motor function Manual Therapy Techniques to Include: Passive ROM TENS: Yes Cryotherapy (ice pack, ice massage): Yes Thermo therapy (hot pack): Yes Ultrasound (thermal/non thermal): No Please do not hesitate to contact me at [phone] by phone or if you have questions or concerns regarding this new plan of care! Sincerely, Marian Jensen <Electronically signed by Marian Jensen DPT> 09/13/18 6012 CC: Kaden Robles MD; Jose Robertson MD ELR Signed For Medicare only, by signing this I certify the plan of care. Physicians Signature Date OFFICE VISIT REPORT Observed: 09/12/2018 Status: F Source: [place] 2:47 PM [place] [address] [place] [address] OFFICE VISIT Date of Service: 09/12/18 MR#: [id number] Acct: [id number] Patient: GAIL LACEY Rep #: [id number] : 1985 Provider: Carolyn Be NP Age/Sex: 33/F Location: [facility] Status: Signed Intake Vital Signs09/12/18 Height 5 ft 8 in 09/12/18 Weight: 212 lb 8 oz 09/12/18 Body Mass Index (BMI) 32.3 09/12/18 Blood Pressure 121/88 H 09/12/18 Blood Pressure Location Rt popliteal 09/12/18 Blood Pressure Position Sitting Intake Visit Reasons: Follow up 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 Required: No Accompanied by: Self Allergies hydromorphone [From Dilaudid] Allergy (Severe, Verified 09/12/18 11:10) Laryngospasms morphine Allergy (Severe, Verified 09/12/18 11:10) chest tightening TAPE Adverse Reaction (Mild, Uncoded 09/12/18 09:04) Other Medications armodafinil 50 mg tablet 150 mg PO QAM 08/26/18 [History Confirmed 09/12/18] Levothyroxine Sodium [Synthroid] 25 mcg PO DAILY 09/12/18 [History Confirmed 09/12/18] [facility] Anemia (Chronic) Anxiety (Chronic) Asthma (Chronic) Depression (Chronic) Breast cancer (Resolved) Headache (Chronic) Immunodeficiency (Chronic) Pneumonia (Chronic) Sleep apnea (Chronic) Thyroid disease (Chronic) Neutropenia (Chronic) Psychiatric disorder (Chronic) Vitamin D deficiency (Chronic) BLADDER/URINARY TRACT INFECTION (Chronic) Carpal tunnel syndrome (Chronic) Hives (Chronic) Polycystic ovary (Chronic) 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) NON HEALING POST- LUMPECTOMY SEROMA ULCER LEFT BREAST (Chronic) HOSPITAL FEBRILE NEUTROPENIA DISCHARGED 07/14/2017 (Resolved) Narcolepsy and cataplexy (Chronic) SOB (shortness of breath) (Chronic) Hemorrhoids (Chronic) Anemia (Chronic) Diarrhea (Chronic) Difficulty balancing (Chronic) Bloody stool (Chronic) Back pain (Chronic) Surgical History H/O total mastectomy of left breast (Acute) History of lumpectomy (Acute) History of partial mastectomy of left breast (Acute 03/2017) PORT PLACEMENT (Acute 04/2017) Plantar wart (Acute 2007) S/P myringotomy with insertion of tube (Acute) SURGICAL PREPARATION LEFT LATERAL BREAST (Acute) med port placement (Acute) [place] teeth extracted (Resolved) Family History Mother Psychiatric disorder Thyroid disorder Father Hyperlipidemia Hypertension Father Heart disease Aunt Seizures Grandmother Cancer Colon cancer Grandfather Diabetes Heart disease Social History Smoking Status: Former smoker alcohol intake: current alcohol intake frequency: a few times a week what type of physical activity do you participate in: none seatbelt use: always do you feel safe at home: Yes additional social history: SUN EXPOSURE: RARELY - [place] HPI HPI Details: GAIL LACEY, is a 33 F who presents to the office today for follow up of hypothyroidism. However during the last several months she has missed taking her medication at least 1-2 times weekly . Is feeling better . Change in s/s include feeling more hungry and occasionally feels like her skin in crawling. Severity, modifying factors, context, and associated signs and symptoms are as follows: Thyroid pain: No Energy: Improved. Sleep: Not awakened refreshed Has improved. Temp: No intolerance GI: varies, diarrhea to normal Weight: Flucuates Eyes: No change in vision Memory: describes as chemo brain Diaphoresis: Not significant Skin: Dry Hair : Unchanged Neuro: No numbness, tingling or tremors At time of visit: -Pt denies symptoms of hypertensive emergency (CP,SOB,MENEZES, or blurred vision) and hypotension(dizziness or lightheadedness) -Pt denies symptoms of hypoglycemia ( sweaty, confusion, anxiety, tremor, hunger, palpitations) and hyperglycemia ( polydipsia, polyuria) No recent thyroid labs. Exam Const General: comfortable, well groomed Nutritional Appearance: well nourished, overweight Orientation: oriented x3 [facility] Head: normal to inspection, atraumatic Ears: hearing grossly normal bilaterally Nose: external nose normal Face and sinus: normal facial exam Mouth: oral mucosae normal, moist mucous membranes Teeth and gingiva: dentition normal Eyes General: appearance normal, both eyes and all related structures Eyelids: eyelids normal Conjunctivae: conjunctivae normal Sclera: sclerae normal Neck Neck: normal visual inspection Neck mass: No Thyroid: thyroid normal Chest Chest palpation AND inspection: other (drainage tube placement) Resp Effort AND Inspection: normal respiratory effort, able to speak in complete sentences, symmetric chest movement Auscultation: Bilateral: Clear to Auscultation Cardio Rate: regular rate Rhythm: regular rhythm Heart Sounds: S1 normal, S2 normal, no murmurs GI Auscultation: normal bowel sounds Palpation: soft, no guarding Musc Musculoskeletal: No muscle weakness Neuro General: oriented x3, moves all extremities, gait normal Cognition: normal cognition Speech: speech normal Gait: normal gait Extrem General: normal to inspection, normal capillary refill, full ROM Psych Appearance: grossly normal Mental Status: mental status grossly normal Mood: congruent mood Affect: normal affect Speech and Movement: speech and movement normal Attitude: cooperative Thought Process: normal Thought Content: normal Judgment: judgment good ROS Const Constitutional: Positive for change in appetite; no anorexia, body ache, chills, fatigue, fever(s), frequent falls, decreased energy, malaise, night sweats, weakness, weight change, sleep problems, abnormal sleep pattern, other, headache(s), snoring or excessive sweating Eyes Eyes: Positive for blurry vision; no change in vision, double vision, discharge, dry eyes, bulging eyes, floaters, visual disturbances, eye pain, light sensitivity, spots in vision, tunnel vision or other ENT ENT: No abnormal hearing, ear pain, ear discharge, ear pressure, hearing loss, tinnitus, dizziness/vertigo, balance problems, nosebleed/epistaxis, nasal congestion, nasal obstruction, nose pain, sinus pressure, sinus pain, nasal discharge, post nasal drip, headache(s), facial pain, dental pain, dry mouth, bad breath, hoarseness, lip swelling, mouth lesions, mouth pain, sore throat, tongue swelling, throat swelling, other, difficulty swallowing or neck pain Resp Respiratory: No cough, change in phlegm color, chest congestion, excessive phlegm production, hemoptysis, pain on inspiration, shortness of breath, pain with cough, snoring, stridor, wheezing or other Cardio Cardiology: No chest pain at rest, chest pain with exertion, leg pain with exertion, excessive sweating, shortness of breath, dyspnea on exertion, generalized swelling, irregular heart rhythm, lightheadedness, orthopnea, radiating jaw, neck or arm pain, fast heart rate, slow heart rate, palpitations or other Gastro GI: Positive for abdominal pain, constipation, diarrhea, heartburn, nausea/dyspepsia and vomiting; no belching, bloating, change in bowel habits, change in stool character, coffee ground emesis, cramping, difficulty swallowing, feeling full early, excessive flatus, incontinent of stools, Vomiting blood/hematemesis, blood in stool, loose stools, Black,tarry stools, pain with swallowing or other Genitourinary-Female: No difficulty urinating, burning urination, painful urination, urinary incontinence, urinary frequency, urinary urgency, urinary hesitancy, urinary retention, blood in urine, Frequent nighttime urination/ nocturia, post void dribbling, suprapubic fullness, side pain, sexual problems, genital lesions, genital itching, hot flashes, abnormal periods, abnormal vaginal bleeding, absent period, painful periods, light periods, heavy periods, difficulty getting , painful intercourse, pelvic pain, vaginal dryness, vaginal odor, Vaginal Itching or other Musc Musculoskeletal: No abnormal walking, joint pain, back pain, deformity, joint swelling, limited range of motion, loss of height, muscle cramps, muscle weakness, decreased muscle mass, body aches, neck pain, numbness, radiating pain into limb, stiffness, tingling or other Skin Skin: No acne, hair loss, change in hair, nail changes, boil, change in skin color, dry skin, redness, excessive hair growth, yellowing of the skin, lesions, itching, rash, skin pain, skin ulcer, sores, skin swelling, wounds or other Breast Breast: No other Neuro Neurology: No frequent falls, weakness, visual disturbances, abnormal hearing, headache(s), abnormal walking, numbness or tingling Psych Psychiatric: No abnormal sleep pattern, Positive for change in appetite Endo Endocrine: No fatigue, other or excessive sweating Aller/Imm Allergy/Immunologic: No lip swelling, tongue swelling, throat swelling, wheezing or itchy eyes Exam Musc Musculoskeletal: No muscle weakness Assessment AND Plan Problems 1. Acquired hypothyroidism E03.9 Plan Patient continues on levothyroxine 50mcg tablets at 1/2 tablet daily. Does miss some doses. Will have patient check lab today to determine level of replacement. Has some questions, many not related to thyroid but tried to answer those I could. Feeling like mouth is always sore and irritated. Enc to ask oncology but enc keeping mouth moist and not using mouthwash etc. Will complete labs today for thyroid. Plan Detail Additional Comments RTC 3 months. Coding Level of Care Code Off vis,est,level 3 Diagnoses Acquired hypothyroidism E03.9 09/12/18 3677 <Electronically signed by Carolyn LARKIN> Date Carolyn LARKNI Cosigner Signature: Date (if applicable) CC: ONCOLOGY VISIT REPORT Observed: 09/12/2018 Status: F Source: [place] 11:31 AM [facility] REPOSITORY [facility] [place] [address] OFFICE VISIT Date of Service: 09/12/18 1112 MR#: [id number] Acct: [id number] Name: GAIL LACEY Rep #: [id number] : 1985 From: Owen Edouard MD Age/Sex: 33/F Location: [facility] Status: Signed - Problem List (1) Cancer of left female breast Status: Chronic Qualifiers: Estrogen receptor status: positive (2) Anemia Status: Chronic - Date of Service Date of Service:: 09/12/18 - Chief Complaint Breast cancer follow-up - History of Present Illness Patient is a 33-year-old premenopausal female who presented with an abnormal left nipple discharge, February 2017 a diagnostic mammogram followed by an ultrasound showed an abnormality that was confirmed on biopsy on March 16 to represent an invasive ductal cancer. On April 06, 2017 the patient underwent a left partial mastectomy with sentinel lymph node biopsy with a final pathology showing an infiltrating ductal carcinoma measuring 1.2 cm in maximum diameter poorly differentiated, grade 3, ER negative, KS weak positive, Her- 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 Margins were negative for both invasive and noninvasive cancer. Patient started systemic adjuvant therapy under the care of in [facility] on May 18, 2017. She received her third cycle of treatment on July 02, 2017 with delays due to pancytopenia especially thrombocytopenia. Starting with her third cycle she required growth factor support with Leukine daily injections (as per her insurance authorization). During her infusions she experienced effusions related reactions including shortness of breath flushing back pain that required premedication with H1, H2, steroid medication and slowing down the infusion rate to several hours. She also experienced side effects of hair loss, abnormal taste, mouth sores, bony pains with Leukine. No fevers or infectious complications to date. Pretreatment cardiac evaluation was by echo that reportedly showed an normal LVEF of 60%. Pre-adjuvant chemotherapy evaluation also included a brain MRI due to history of headaches that showed no evidence of metastatic disease and abnormal liver functions that showed fatty liver. Reportedly patient was offered fertility preservation consultation prior to therapy but she declined. Her had vasectomies, pretreatment test was negative and she reports no menses Since May 2017. She reported that her wound healing was protracted. Patient was seen in initial consultation July 09, 2017 wishing to transfer care to [place] for proximity to residence. Treatment: - April 06, 2017 left partial mastectomy - [facility] X6 cycles -08/2017- (delays due to delayed wound healing, cytopenias and febrile neutropenia). - Herceptin maintenance 10/04/2017-05/23/2018 (Concluded 1Y) - Tamoxifen October-March 2018 then stopped (wishing to have more children if possible, disease is ER negative, KS weak positive) - Adjuvant radiation therapy; 4256 cGy of mixed 6, 10, and 15 MV photons in 16 fractions to the left breast with a 3D conformal technique consisting of MONEGASQUE, LPO, and MONTERO carmen with field and field to improve dose homogeneity. A sequential boost consisting of 1000 cGy of mixed 10 and 15 MV photon in 4 fractions was delivered to the lumpectomy bed with a 3D conformal technique consisting of MONEGASQUE and LPO carmen. This brought the total dose delivered to 5256 cGy in 20 fractions. Patient was treated in the prone position to limit dose to the heart and lungs. Date of First Treatment: 10/13/2017 Date of Last Treatment: 11/10/2017 - Completion mastectomy December 2017. - Past Medical/Social History Past Medical History Past Medical History: Anxiety,Asthma,Breast problem,Depression, Headaches,Immunodeficiency,Pneumonia,Sleep apnea ,Thyroid disease,Neutropenia,Psychiatric disorder,Vitamin D deficiency Other Past Medical History: fatty liver Cancer: Breast cancer Past Surgical History Surgical: Lumpectomy Other Surgical History: WISDOM TEETH 2003 X 4 LEFT BREAST LUMPECTOMY 04/06/17 DEBRIDEMENT OF LEFT BREAST WOUND POST OP 08/03 Family History Paternal Past Medical History: Heart disease,Hyperlipidemia Maternal Past Medical History: Thyroid disease,Psychiatric disorder Social History Smoking Status Former smoker Review of Systems Constitutional:: Denies: Fever, Sweats, Weight loss, Appetite change, Chills Cardiovascular:: Denies: Chest pain, Palpitations, Dyspnea on exertion, Orthopnea, PND, Shortness of breath Respiratory: Denies: Cough, Hemoptysis, Shortness of Breath, Wheezing Gastrointestinal:: Denies: Abdominal pain, Nausea, Vomiting, Diarrhea, Constipation, Hematochezia Genitourinary: Reports: Menorrhagia. Denies: Dysuria, Hematuria, Flank pain Musculoskeletal:: Denies: Back pain, Myalgia, Arthralgia Skin: Denies: Rash, Skin Changes, Wounds Neurological:: Denies: Headache, Dizziness, Visual changes, Tinnitus, Hearing loss Psychiatric: Denies: Anxiety, Depression, Homicidal Ideations, Suicidal Ideations Comment: Left breast wound healed, further surgery scheduled September 27, 2018 to remove redundant skin and soft tissues. No plans for reconstruction. Vital Signs Height 5 ft 8 in Weight: 97.795 kg Weight in Pounds 215.6 lbs BMI 36.4 Pulse Ox 98 - Physical Exam General: Alert, Oriented x3, No apparent distress HEENT: Atraumatic, PERRLA, EOMI, Normocephalic Oropharynx:: Dry mucosa Neck:: Supple, Trachea midline. Negative for: JVD, bilateral Cardiac:: Regular rate, Regular rhythm, Normal S1, Normal S2. Negative for: Murmur Lungs: Clear to auscultation, Excusion symmetrical. Negative for: Rhonchi, Wheezes Abdomen:: Bowel sounds x 4, Soft, Non-tender, Non-distended. Negative for: Hepatosplenomegaly Extremities:: Negative for: Cyanosis, Edema Neurological: Neuro grossly intact Skin:: Negative for: Lesions, Rash, Petechiae, Ecchymosis Psychiatric:: Appropriate affect, Euthymic Lymphatics:: Negative for: Cervical lymphadenopathy, Supraclavicular lymphadenopathy, Axillary lymphadenopathy Laboratory Data: CBC, CMP reviewed in EMR Diagnostic Data: Screening right mammogram July 04, 2018: Stable unilateral screening mammogram. Yearly follow-up mammogram recommended. (A) Assessment and Plan 33-year-old premenopausal female with 1- Invasive ductal cancer of the left breast stage I (T1c, N0, M0) high-grade G3, ER negative, KS weak positive, HER-2 positive. Patient is status post partial mastectomy with sentinel lymph node biopsy April 06, 2017, then completion mastectomy December 2017. She received adjuvant systemic chemotherapy with TCH May - August 2017 . Delays of treatment has occurred due to delayed wound healing, cytopenias and intercurrent illnesses (Febrile neutropenia, URTI, and dental infection) Received 1 year maintenance of Herceptin concluded May 2018. Received adjuvant radiation therapy September 2017 through October 2017. Received adjuvant Tamoxifen October through March 2018, well- tolerated then stopped (she wishes to have more children, disease is ER negative KS weakly positive and therefore the added benefit is small). She resumed menses after the conclusion of her chemotherapy. 2-anemia most likely related to chronic inflammatory disease (wound) +/- Fe deficieny , on PO Fe, corrected. Plan: 1. Surveillance, follow-up in 3 months. Annual screening mammogram to schedule for the right breast. 2. Monitoring of cardiac function with echo at 18 months from start of Herceptin therapy, scheduled September 2018 (patient request). 3. Open wound following drainage of a suspected infected seroma, follow-up was Dr. Robertson. 4. Pain issues related to wound deferred to Dr. Robertson discretion. Chronic back pain issues unrelated and to predate diagnosis of breast cancer deferred to PCP, and patient used to see an outside pain management advised to follow-up with. With the length of such treatment she is narcotics dependent and may require detox future especially prior to having more children. 5. From oncology view port can come out but patient prefers to keep in due to difficult IV access until complete healing from her breast surgeries. 6. Continue one iron tablet oral daily for the next 6 months. May need to continue till after menopause to compensate for heavy menstrual losses. Impression and plan discussed with patient and . Medications: Prescriptions This Visit Medication Instructions Recorded Levothyroxine Sodium [Synthroid] 25 mcg PO DAILY 09/12/18 Primary Care Provider: Kaden Robles MD Referring Provider: 09/12/18 1131 <Electronically signed by Owen Edouard MD> Date Owen Edouard MD Cosigner Signature: Date (if applicable) CC: Kaden Robles MD CBC W/DIFF, AUTOMATED Collected: 09/12/2018 Status: F Source: [place] 10:29 AM [facility] REPOSITORY TYPE CODE TESTS RESULT OUT OF RANGE REFERENCE UNITS LAB L100.1000 4.4-11.0 K/mm3 Low WBC 3.9 LAB L100.1200 4.2-5.4 M/mm3 Normal RBC 4.51 LAB L100.1300 12.0-15.0 g/dl Normal HGB 13.3 LAB L100.1400 37-47 % Normal HCT 39.0 LAB L100.1500 81-99 fL Normal MCV 86.5 LAB L100.1600 27.0-32.0 pg Normal MCH 29.5 LAB L100.1700 32-36 g/gl Normal MCHC 34.1 LAB L100.1810 11.6-14.6 % Normal RDW CV 13.6 LAB L100.1820 35.1-43.9 fl Normal RDW SD 43.2 LAB L100.1900 150-450 K/mm3 Low PLT 139 LAB L100.2000 6.2-12.0 fl Normal MPV 8.2 LAB L100.2100 47-70 % Normal NEUT% 56.5 LAB L100.2200 19-41 % Normal LY% 32.4 LAB L100.2300 0-10 % Normal MONO% 8.0 LAB L100.2400 0-5 % Normal EO% 2.6 LAB L100.2500 0-1 % Normal BASO% 0.5 LAB L100.2550 0.0-0.9 % Normal IM GRAN % 0.000 Result Comment: IG% - Immature Granulocytes (promyelocytes, myelocytes and metamyelocytes) > 1% indicates that a LEFT SHIFT is Present. LAB L100.2620 2.0-7.7 X10 3/uL Normal Absolute Neut 2.2 LAB L100.2720 0.83-4.51 X10 3/ul Normal Absolute Lymph 1.25 Performed By: #### L100.0100 #### [facility] [address] [place], [address] COMPREHENSIVE METABOLIC Collected: 09/12/2018 Status: F Source: [facility] 10:29 AM [facility] REPOSITORY TYPE CODE TESTS RESULT OUT OF RANGE REFERENCE UNITS LAB L501.0100 74-106 mg/dL Normal GLU 85 Result Comment: Please note revised GLUCOSE reference range effective 2017. LAB L501.1000 7-18 mg/dL Normal BUN 18 LAB L501.1100 0.55-1.02 mg/dL Normal CREAT,SERUM 0.80 Result Comment: The validity of the calculated GFR AND GFRAA in patients over 70 years has not been determined. Clinical correlation is essential. LAB L501.1110 >60 mL/min Normal EST GFR 86 Result Comment: Non- GFR Calc LAB L501.1115 >60 mL/min Normal EST GFR - AA 105 Result Comment: GFR Calc LAB L501.1300 10-20 RATIO High BUN/CRE 22.4 LAB L501.1500 6.4-8.2 g/dL T Normal PROT 7.6 LAB L501.1800 3.2-5.0 g/dL Normal ALB 4.1 LAB L501.1950 2.2-4.2 g/dL Normal GLOB 3.5 LAB L501.2000 0.9-2.4 RATIO Normal A/G 1.2 LAB L501.2200 8.5-10.1 mg/dL CA Normal 8.6 LAB L501.4100 15-37 U/L Normal AST 34 LAB L501.4305 45-117 U/L Normal ALK P 106 LAB L501.4405 13-56 U/L Normal ALT 54 LAB L501.4600 0.20-1.00 mg/dL T Normal BILI 0.50 LAB L501.5300 136-145 mmol/L NA Normal 137 LAB L501.5600 3.5-5.1 mmol/L K Normal 3.6 LAB L501.5900 98-107 mmol/L CL Normal 106 LAB L501.6100 21.0-32.0 mmol/L Normal CO2 25.0 LAB L501.6200 5-15 Normal GAP 6 Performed By: #### L500.4050, L500.4100 #### [facility] [address] [place], [address] LIPID PROFILE Collected: 09/12/2018 Status: F Source: [place] 10:29 AM [facility] REPOSITORY TYPE CODE TESTS RESULT OUT OF RANGE REFERENCE UNITS LAB L501.4900 200 mg/dL Normal CHOL 169 Result Comment: <200 mg/dL Desirable 200-240 mg/dL Borderline >240 mg/dL High Risk LAB L501.5000 mg/dL Normal TRIG 99 Result Comment: The drugs N-Acetylcysteine and Metamizole may falsely depress this assay. Serum Triglycerides Reference Interval Normal <150 mg/dL Borderline high 150 - 199 mg/dL High 200 - 499 mg/dL Very High > or = 500 mg/dL LAB L501.6400 mg/dL Normal HDL 60 Result Comment: The drugs N-Acetylcysteine and Metamizole may falsely depress this assay. Reference Range HDL <40 mg/dL Low HDL Cholesterol HDL >or= 60 mg/dL High HDL Cholesterol LAB L501.6500 0-130 mg/dL Normal LDL 89 LAB L501.6600 5-40 mg/dL Normal VLDL 20 Performed By: #### L500.4050, L500.4100 #### [facility] [address] [place], [address] FREE T3 Collected: 09/12/2018 Status: F Source: [place] 10:26 AM [facility] REPOSITORY TYPE CODE TESTS RESULT OUT OF RANGE REFERENCE UNITS LAB L501.35070 2.18-3.98 pg/mL Normal FREE T3 3.1 Performed By: #### L501.65755, L501.9520, L506.0400 #### [facility] [address] [place], [address] THYROID STIM HORMONE Collected: 09/12/2018 Status: F Source: [place] (TSH) 10:26 AM [facility] REPOSITORY TYPE CODE TESTS RESULT OUT OF RANGE REFERENCE UNITS LAB L501.9520 0.358-3.74 uIU/mL High TSH 3.95 Performed By: #### L501.18666, L501.9520, L506.0400 #### [facility] [address] [place], [address] T4 FREE DIRECT Collected: 09/12/2018 Status: F Source: [place] 10:26 AM [facility] REPOSITORY TYPE CODE TESTS RESULT OUT OF RANGE REFERENCE UNITS LAB L506.0400 0.76-1.46 ng/dL Normal T4 FREE 1.03 DIRECT Performed By: #### L501.76673, L501.9520, L506.0400 #### [facility] [address] [place], [address] CBC W/DIFF, AUTOMATED Collected: 09/05/2018 Status: F Source: [place] 3:41 PM [facility] REPOSITORY Order Comment: Reason for Laboratory Test PRE-CHEMO TYPE CODE TESTS RESULT OUT OF RANGE REFERENCE UNITS LAB L100.1000 4.4-11.0 K/mm3 Normal WBC 4.5 LAB L100.1200 4.2-5.4 M/mm3 Low RBC 4.09 LAB L100.1300 12.0-15.0 g/dl Normal HGB 12.0 LAB L100.1400 37-47 % Low HCT 35.6 LAB L100.1500 81-99 fL Normal MCV 87.0 LAB L100.1600 27.0-32.0 pg Normal MCH 29.3 LAB L100.1700 32-36 g/gl Normal MCHC 33.7 LAB L100.1810 11.6-14.6 % Normal RDW CV 13.8 LAB L100.1820 35.1-43.9 fl Normal RDW SD 42.3 LAB L100.1900 150-450 K/mm3 Normal PLT 187 LAB L100.2000 6.2-12.0 fl Normal MPV 8.3 LAB L100.2100 47-70 % Normal NEUT% 60.3 LAB L100.2200 19-41 % Normal LY% 30.0 LAB L100.2300 0-10 % Normal MONO% 6.8 LAB L100.2400 0-5 % Normal EO% 2.2 LAB L100.2500 0-1 % Normal BASO% 0.7 LAB L100.2550 0.0-0.9 % Normal IM GRAN % 0.000 Result Comment: IG% - Immature Granulocytes (promyelocytes, myelocytes and metamyelocytes) > 1% indicates that a LEFT SHIFT is Present. LAB L100.2620 2.0-7.7 X10 3/uL Normal Absolute Neut 2.7 LAB L100.2720 0.83-4.51 X10 3/ul Normal Absolute Lymph 1.36 Performed By: #### L100.0100 #### [facility] [address] [place], [address] COMPREHENSIVE METABOLIC Collected: 09/05/2018 Status: F Source: [place] 3:41 PM [facility] REPOSITORY Order Comment: Reason for Laboratory Test PRE-CHEMO TYPE CODE TESTS RESULT OUT OF RANGE REFERENCE UNITS LAB L501.0100 74-106 mg/dL Normal GLU 104 Result Comment: Fasting Glucose result from 100 to 125 mg/dL suggests IMPAIRED HOMEOSTASIS per A.D.A. criteria. Please note revised GLUCOSE reference range effective 2017. LAB L501.1000 7-18 mg/dL Normal BUN 14 LAB L501.1100 0.55-1.02 mg/dL Normal CREAT,SERUM 0.82 Result Comment: The validity of the calculated GFR AND GFRAA in patients over 70 years has not been determined. Clinical correlation is essential. LAB L501.1110 >60 mL/min Normal EST GFR 85 Result Comment: Non- GFR Calc LAB L501.1115 >60 mL/min Normal EST GFR - AA 103 Result Comment: GFR Calc LAB L501.1255 ml/min Normal Estimated CRCL 97.52 LAB L501.1300 10-20 RATIO Normal BUN/CRE 17.2 LAB L501.1500 6.4-8. g/dL Normal 2 T PROT 7.2 LAB L501.1800 3.2-5. g/dL Normal 0 ALB 3.8 LAB L501.1950 2.2-4. g/dL Normal 2 GLOB 3.4 LAB L501.2000 0.9-2. RATIO Normal 4 A/G 1.1 LAB L501.2200 8.5-10 mg/dL Low .1 CA 8.4 LAB L501.4100 15-37 U/L Low AST 12 LAB L501.4305 45-117 U/L Normal ALK P 93 LAB L501.4405 13-56 U/L Normal ALT 28 LAB L501.4600 0.20-1 mg/dL Normal .00 T BILI 0.40 LAB L501.5300 136-14 mmol/L Normal 5 NA 141 LAB L501.5600 3.5-5. mmol/L Normal 1 K 3.6 LAB L501.5900 98-107 mmol/L High CL 109 LAB L501.6100 21.0-3 mmol/L Normal 2.0 CO2 25.0 LAB L501.6200 5-15 Normal GAP 7 Performed By: #### L500.4050, L503.6090, L503.6542 #### [facility] [address] [place], [address] IRON+IRON BINDING Collected: 09/05/2018 Status: F Source: [facility] 3:41 PM [facility] REPOSITORY Order Comment: Reason for Laboratory Test PRE-CHEMO TYPE CODE TESTS RESULT OUT OF RANGE REFERENCE UNITS LAB L503.6075 250-450 ug/dL TIBC Normal 361 LAB L503.6150 50-170 ug/dL IRON Normal 52 LAB L503.6250 15.0-55.0 % Low IRON SATURATION 14.4 Performed By: #### L500.4050, L503.6030, L503.6550 #### [facility] [address] [place], [address] FERRITIN Collected: 09/05/2018 Status: F Source: [place] 3:41 PM [facility] REPOSITORY Order Comment: Reason for Laboratory Test PRE-CHEMO TYPE CODE TESTS RESULT OUT OF RANGE REFERENCE UNITS LAB L503.6550 8-252 ng/mL Normal FERRITIN 41 Performed By: #### L500.4050, L503.6030, L503.6550 #### [facility] [address] [place], [address] INTERNAL MEDICINE Observed: 08/29/2018 Status: F Source: [place] OFFICE VISIT 4:29 PM [facility] REPOSITORY [facility] [address] [place] [address] [place] [address] OFFICE VISIT Date of Service: 08/26/18 MR#: [id number] Acct: [id number] Name: GAIL LACEY Jordan Rep #: [id number] : 1985 Provider: Orlando Kumar MD Age/Sex: 33/F Location: [facility] [place] Status: Signed Intake Vital Signs08/26/18 Height 5 ft 8 in 08/26/18 Weight: 209 lb 08/26/18 Body Mass Index (BMI) 31.7 08/26/18 Blood Pressure 134/85 H 08/26/18 Blood Pressure Location Rt brachial Intake Visit Reasons: ABD PAIN, OFFERED 2 APPTS PRIOR TO THIS DATE Chief Complaint: Establish care - Abdominal issues. Is patient in pain?: No Allergies hydromorphone [From Dilaudid] Allergy (Severe, Verified 08/26/18 10:55) Laryngospasms morphine Allergy (Severe, Verified 08/26/18 10:55) chest tightening TAPE Adverse Reaction (Mild, Uncoded 08/26/18 10:55) Other Medications levothyroxine 50 mcg tablet 50 mcg PO DAILY #30 tab 07/13/18 [Rx Confirmed 08/26/18] armodafinil 50 mg tablet 150 mg PO QAM 08/26/18 [History Confirmed 08/26/18] PFSH Medical History Anemia (Chronic) Anxiety (Chronic) Asthma (Chronic) Depression (Chronic) Breast cancer (Resolved) Headache (Chronic) Immunodeficiency (Chronic) Pneumonia (Chronic) Sleep apnea (Chronic) Thyroid disease (Chronic) Neutropenia (Chronic) Psychiatric disorder (Chronic) Vitamin D deficiency (Chronic) BLADDER/URINARY TRACT INFECTION (Chronic) Carpal tunnel syndrome (Chronic) Hives (Chronic) Polycystic ovary (Chronic) 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) NON HEALING POST- LUMPECTOMY SEROMA ULCER LEFT BREAST (Chronic) HOSPITAL FEBRILE NEUTROPENIA DISCHARGED 07/14/2017 (Resolved) Narcolepsy and cataplexy (Chronic) SOB (shortness of breath) (Chronic) Hemorrhoids (Chronic) Anemia (Chronic) Diarrhea (Chronic) Difficulty balancing (Chronic) Bloody stool (Chronic) Back pain (Chronic) Surgical History H/O total mastectomy of left breast (Acute) History of lumpectomy (Acute) History of partial mastectomy of left breast (Acute 03/2017) PORT PLACEMENT (Acute 04/2017) Plantar wart (Acute 2007) S/P myringotomy with insertion of tube (Acute) SURGICAL PREPARATION LEFT LATERAL BREAST (Acute) med port placement (Acute) [place] teeth extracted (Resolved) Family History Mother Psychiatric disorder Thyroid disorder Father Hyperlipidemia Hypertension Father Heart disease Aunt Seizures Grandmother Cancer Colon cancer Grandfather Diabetes Heart disease Social History Smoking Status: Former smoker alcohol intake: current alcohol intake frequency: a few times a week what type of physical activity do you participate in: none seatbelt use: always do you feel safe at home: Yes additional social history: SUN EXPOSURE: RARELY - [place]- [employer] HPI HPI Chief Complaint: Establish care - Abdominal issues. Details: GAIL LACEY, is a 33 F who presents to the office today to establish care. She also has some concerns. She reports intermittent abdominal discomfort/pain nausea, watery bowel movement and occasional vomiting which has been ongoing for couple of months. Initial episode was after 6-week antibiotic use. She denies any known precipitating factors. These episodes typically resolve spontaneously. She is also concerned about her weight. She states that she has had an EGD and colonoscopy which were both within normal. She denies blood in her stool or other significant concerns. Also concerned about fast heart rate which she is only aware of typically during the office or hospital visits. She does not routinely check her heart rate outside of these places. She denies chest pain or shortness of breath. Currently following up with oncology for history of breast cancer. She is status post mastectomy, chemotherapy and radiotherapy. Scheduled for another surgery with plastic surgery in September. ROS Const Constitutional: No weakness, frequent falls or change in appetite Eyes Eyes: No blurry vision, change in vision, double vision, discharge or visual disturbances ENT ENT: No abnormal hearing, ear pain, ear pressure, tinnitus or dizziness/vertigo Resp Respiratory: No cough, shortness of breath or wheezing Cardio Cardiology: No chest pain at rest, chest pain with exertion, shortness of breath, generalized swelling, irregular heart rhythm, lightheadedness, orthopnea, fast heart rate or palpitations Gastro GI: Positive for abdominal pain, constipation, diarrhea, nausea/dyspepsia, vomiting and bloating; no change in bowel habits Genitourinary-Female: No difficulty urinating, burning urination, painful urination, urinary incontinence, urinary frequency, urinary urgency, urinary hesitancy, urinary retention, Frequent nighttime urination/ nocturia, sexual problems, genital lesions, abnormal vaginal bleeding, pelvic pain, vaginal dryness, vaginal odor or Vaginal Itching Musc Musculoskeletal: No joint swelling, limited range of motion, numbness or tingling Skin Skin: No change in skin color, itching, rash or wounds Breast Breast: No breast lump or breast pain Neuro Neurology: No abnormal hearing, numbness, tingling, unsteady gait/balance, dizziness, weakness, frequent falls, loss of vision, memory loss or visual disturbances Psych Psychiatric: No memory loss, No anxiety, No change in appetite, No depression, No Thoughts of harming yourself/Others Aller/Imm Allergy/Immunologic: No wheezing, itchy eyes or seasonal allergy symptoms Geovanni/Lymp Hematologic/Lymphatic: No easy bleeding, easy bruising or enlarged lymph nodes Exam Const General: cooperative, no acute distress Orientation: alert, awake, oriented x3 HENMT Head: atraumatic, normocephalic, normal to inspection Ears: hearing grossly normal bilaterally Resp Effort AND Inspection: normal respiratory effort, able to speak in complete sentences Auscultation: Bilateral: Clear to Auscultation Cardio Rate: tachycardic Rhythm: regular rhythm Heart Sounds: S1 normal, S2 normal GI Palpation: soft (Epigastric tenderness. Mild), no hepatosplenomegaly Neuro General: alert, awake, oriented x3, moves all extremities, CN's II-XI intact bilaterally Extrem General: no clubbing, cyanosis or edema Psych Appearance: grossly normal Mood: congruent mood Affect: normal affect Assessment AND Plan 1. Intermittent epigastric abdominal pain R10.13 Plan Associated with occasional nausea, vomiting and irregular bowel movements. Per patient she has had a colonoscopy and EGD without any significant findings. Report not available in chart. Also recently had a right upper quadrant ultrasound without any abnormality. Symptoms where said to have started after prolonged use of antibiotic. However possibilities are irritable bowel syndrome vs GERD. Not very open to medications. Probiotics recommended now. Currently not on a PPI which I believe she will benefit from. Follow-up in 6 weeks. 2. Tachycardia R00.0 Plan Heart rate of 110. Has noted elevated heart rate typically during her doctor visits and hospital visits. Does not routinely check it at home. I have advised her to check it at home if unable to do this will consider Holter monitor. No other concerning symptoms at this time. 3. Anemia D64.9 Plan Chronic. Last hemoglobin of 10. Has been around 10 4 months. Repeat CBC ordered. Follow-up with results. 4. Hypothyroidism, unspecified type E03.9 Plan Recently diagnosed per patient. Currently on Synthroid. Lipid profile ordered. Follow-up with results. This note was generated with [employer] dictation software. It may contain incorrect words, spelling, and punctuation that were not noted in checking the note before signing. Orders Orders: Plan Detail Other Orders Orders: Coding Level of Care Code Off vis,est,level 4 Diagnoses Intermittent epigastric abdominal pain R10.13 Tachycardia R00.0 Anemia D64.9 Hypothyroidism, unspecified type E03.9 Hypothyroidism type: unspecified 08/29/18 8335 <Electronically signed by Orlando Kumar MD> Date Orlando Kumar MD Cosigner Signature: Date (if applicable) CC: PLASTIC SURGERY Observed: 08/17/2018 Status: F Source: [place] VISIT REPORT 10:13 PM [facility] REPOSITORY [facility] [address] [place] [address] OFFICE VISIT Date of Service: 08/17/18 MR#: [id number] Acct: [id number] Name: GAIL LACEY Rep #: [id number] : 1985 Provider: Jose Robertson MD Age/Sex: 33/F Location: [facility] Status: Signed Intake Vital Signs08/17/18 Blood Pressure 127/88 H 08/17/18 Blood Pressure Location Rt brachial 08/17/18 Blood Pressure Position Sitting 08/17/18 Respiratory Rate 18 08/17/18 Pulse Rate 104 H Intake Visit Reasons: postop surgery 06/24/18 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 Required: No Accompanied by: Family / Other Is patient in pain?: No Allergies hydromorphone [From Dilaudid] Allergy (Severe, Verified 08/17/18 11:47) Laryngospasms morphine Allergy (Severe, Verified 08/17/18 11:47) chest tightening TAPE Adverse Reaction (Mild, Uncoded 08/17/18 11:47) Other Medications levothyroxine 50 mcg tablet 50 mcg PO DAILY #30 tab 07/13/18 [Rx Confirmed 08/16/18] armodafinil 50 mg tablet PO 30 Days #30 tab 08/16/18 [History Confirmed 08/16/18] PFSH Medical History Anemia (Acute) Anxiety (Acute) Asthma (Acute) BLADDER/URINARY TRACT INFECTION (Acute) Back pain (Acute) Bloody stool (Acute) Breast cancer (Acute) Carpal tunnel syndrome (Acute) Depression (Acute) Diarrhea (Acute) Difficulty balancing (Acute) Headache (Acute) Hemorrhoids (Acute) Hives (Acute) Immunodeficiency (Acute) NEUROPATHY AFTER ARM SURGERY (Acute) NON HEALING POST- LUMPECTOMY SEROMA ULCER LEFT BREAST (Acute) Narcolepsy and cataplexy (Acute) Neutropenia (Acute) Pneumonia (Acute) Polycystic ovary (Acute) Psychiatric disorder (Acute) SOB (shortness of breath) (Acute) Sleep apnea (Acute) Thyroid disease (Acute) Vitamin D deficiency (Acute) [place] teeth extracted (Acute) Surgical History H/O total mastectomy of left breast (Acute) HOSPITAL FEBRILE NEUTROPENIA DISCHARGED 07/14/2017 (Acute) History of lumpectomy (Acute) History of partial mastectomy of left breast (Acute 03/2017) PORT PLACEMENT (Acute 04/2017) Plantar wart (Acute 2007) S/P myringotomy with insertion of tube (Acute) SURGICAL PREPARATION LEFT LATERAL BREAST (Acute) med port placement (Acute) Family History Mother Psychiatric disorder Thyroid disorder Father Hyperlipidemia Hypertension Father Heart disease Aunt Seizures Grandmother Cancer Colon cancer Grandfather Diabetes Heart disease Social History Smoking Status: Former smoker alcohol intake: current alcohol intake frequency: a few times a week what type of physical activity do you participate in: none seatbelt use: always do you feel safe at home: Yes additional social history: SUN EXPOSURE: RARELY - [place]- [employer] HPI postop surgery 06/24/18: Details: Postop visit from her recent surgery on 06/24/18 where she underwent revision reconstructed left breast with excision painful nonhealing radiation ulcer and excision painful excess mastectomy skin scar contour deformity. Patient presents with less residual discomfort mostly on the medial aspect and superior aspect of the mastectomy incisional area. It is intermittent. Occasionally in the lateral aspect of the mastectomy incision. Denies any fever or chills. Incision is healed. No clinical evidence of seroma. Operative cultures showed Staphylococcus aureus and anaerobic cocci. She was on Levaquin and Flagyl and has finished them. Pathology showed underlying adipose tissue and skeletal muscle tissue with focal fat necrosis, chronic inflammation and foreign body giant cell reaction Continue lona wrap for chest wall compression. 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 She recently needed placement of ear tubes. Because of the persistent symptomatology, she has decided to proceed with further revision reconstructed left breast surgery in September in between [place] and [place]. Also at the time of her revision breast reconstruction surgery, she wants to have her right chest wall port removed as well. When her kids hug her on that side it is quite painful. They don't hug her on her left side since that side hurts more than the right side. She does complain of some hypersensitivity in the left axilla as well as difficulty raising her left arm. She can only lift to 90 degrees. Some of this stiffness is due to her radiation therapy. She has been evaluated by PT and will start therapy next week for range of motion exercises and ultrasound massage which should help her hypersensitivity and stiffness. Also strengthening and edema management would be helpful. She had some questions regarding the possibility of developing lymphedema in the future and what measures can be done proactively to help minimize that risk. She was told that when she goes over to PT, she can ask them about lymphedema. They can give her some information on that. After her pain and stiffness around her left shoulder improve, then they can address the proactive measures regarding lymphedema such as a compression sleeve. Followup after her surgery in September. Patient was informed of the risks and complications of the procedure including alternatives to surgery. These were discussed with the patient personally. Patient voices understanding and wishes to proceed. Assessment AND Plan Problems 1. Cancer of left female breast C50.912 2. 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 Deformity of reconstructed breast N65.0 5. Disproportion of reconstructed breast N65.1 6. Late effect of radiation T66.XXXS 7. 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 Pain of left breast N64.4 10. Pain in left axilla M79.622 11. 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 Pain of left breast N64.4 Pain in left axilla M79.622 Encounter for care related to vascular access port Z45.2 08/17/18 2213 <Electronically signed by Jose Robertson MD> Date Jose Robertson MD Cosigner Signature: Date (if applicable) CC: URGENT CARE VISIT Observed: 08/16/2018 Status: F Source: [place] REPORT 3:08 PM [facility] REPOSITORY [facility] [address] [place] [address] [address] [place] [address] OFFICE VISIT Date of Service: 08/16/18 MR#: [id number] Acct: [id number] Name: GAIL LACEY Rep #: [id number] : 1985 Provider: Jacques FRANCO Age/Sex: 33/F Location: [facility] [place].[facility] Status: Signed Intake Vital Signs08/16/18 Height 5 ft 8 in Intake Visit Reasons: SEVERE PAIN UNDER HER RIB Allergies hydromorphone [From Dilaudid] Allergy (Severe, Verified 08/16/18 09:30) Laryngospasms morphine Allergy (Severe, Verified 08/16/18 09:30) chest tightening TAPE Adverse Reaction (Mild, Uncoded 08/16/18 09:30) Other Medications levothyroxine 50 mcg tablet 50 mcg PO DAILY #30 tab 07/13/18 [Rx Confirmed 08/16/18] armodafinil 50 mg tablet PO 30 Days #30 tab 08/16/18 [History Confirmed 08/16/18] PFSH Medical History Anemia (Acute) Back pain (Acute) Bloody stool (Acute) Diarrhea (Acute) Difficulty balancing (Acute) Hemorrhoids (Acute) SOB (shortness of breath) (Acute) Anxiety (Acute) Asthma (Acute) BLADDER/URINARY TRACT INFECTION (Acute) Breast cancer (Acute) Carpal tunnel syndrome (Acute) Depression (Acute) Headache (Acute) Hives (Acute) Immunodeficiency (Acute) NEUROPATHY AFTER ARM SURGERY (Acute) NON HEALING POST- LUMPECTOMY SEROMA ULCER LEFT BREAST (Acute) Narcolepsy and cataplexy (Acute) Neutropenia (Acute) Pneumonia (Acute) Polycystic ovary (Acute) Psychiatric disorder (Acute) Sleep apnea (Acute) Thyroid disease (Acute) Vitamin D deficiency (Acute) [place] teeth extracted (Acute) Surgical History H/O total mastectomy of left breast (Acute) HOSPITAL FEBRILE NEUTROPENIA DISCHARGED 07/14/2017 (Acute) History of lumpectomy (Acute) History of partial mastectomy of left breast (Acute 03/2017) PORT PLACEMENT (Acute 04/2017) Plantar wart (Acute 2007) S/P myringotomy with insertion of tube (Acute) SURGICAL PREPARATION LEFT LATERAL BREAST (Acute) med port placement (Acute) Family History Mother Psychiatric disorder Thyroid disorder Father Hyperlipidemia Hypertension Father Heart disease Aunt Seizures Grandmother Cancer Colon cancer Grandfather Diabetes Heart disease Social History Smoking Status: Former smoker alcohol intake: current alcohol intake frequency: a few times a week what type of physical activity do you participate in: none seatbelt use: always do you feel safe at home: Yes additional social history: SUN EXPOSURE: RARELY - [place]- [employer] HPI HPI Details: GAIL LACEY, is a 33 F who presents to the office today for concern for upper abdominal lower rib pain. Patient states that approximate 1 week ago she had a case of gastroenteritis that went through her house as well and then over the past several days she has had increasing epigastric pain. She states the pain does radiate around her right side and to the shoulder blade area. She denies any current vomiting or diarrhea however does state that she has abdominal discomfort and nausea. She states that the epigastric pain is made worse with sitting up or leaning over with no other aggravating or alleviating factors. She does also report a new onset of increased belching during the past 3 days. She has not tried any medications for his current episode. No other associated symptoms or alleviating/aggravating factors. ROS Const Constitutional: No chills, fever(s), fatigue or abnormal sleep pattern ENT ENT: No dizziness/vertigo, balance problems, sore throat or mouth lesions Resp Respiratory: No shortness of breath or chest congestion Cardio Cardiology: No chest pain at rest, chest pain with exertion or shortness of breath Gastro GI: Positive for nausea/dyspepsia, abdominal pain and belching; no diarrhea, Vomiting blood/hematemesis, Black,tarry stools, vomiting or cramping Skin Skin: No wounds or lesions Neuro Neurology: No behavioral changes or confusion Psych Psychiatric: No abnormal sleep pattern, No behavioral changes, No confusion Endo Endocrine: No fatigue Exam Const General: cooperative, healthy appearing [facility] Head: normocephalic, atraumatic Ears: hearing grossly normal bilaterally Face and sinus: face symmetric Eyes General: appearance normal, both eyes and all related structures Pupils: PERRL Resp Effort AND Inspection: normal respiratory effort Auscultation: Bilateral: Clear to Auscultation Cardio Rate: regular rate Rhythm: regular rhythm Heart Sounds: S1 normal, S2 normal GI Inspection: normal to inspection Auscultation: normal bowel sounds Percussion: normal to percussion Palpation: soft, no hepatosplenomegaly, no guarding, tender in the epigastrum and in the RUQ; Negative for Phan's sign negative, not at McBurney's point, psoas sign negative, with no rebound tenderness or Rovsing's sign negative General: No CVA tenderness, bimanual renal exam normal bilaterally Skin General: no rashes or lesions noted Neuro General: alert, CN's II-XI intact bilaterally Psych Appearance: grossly normal Mental Status: mental status grossly normal Assessment AND Plan Problems 1. Epigastric abdominal pain of unknown etiology R10.13 Status Acute Plan Ultrasound of the right upper abdomen ordered for concern for possible cholecystitis. Patient advised to follow-up with her PCP in the next 3-5 days if no better or sooner if worse. Encouraged to get plenty of rest, drink lots of clear liquids for the next 24 hours and then advance diet slowly and use Tylenol or Ibuprofen (unless contraindicated) for fever and comfort. Patient also educated on other symptomatic management techniques. Advised of potential red flags and when appropriate report to the ED. Patient verbalized understanding and agreement with all the above. Orders Orders: Medications Discontinued: diazepam Discontinued Reason: Pt no longer 5 mg PO 4X/DAY PRN PRN 30 tabs 0RF Spasms taking Coding Level of Care Code Off vis,est,level 3 Diagnoses Epigastric abdominal pain of unknown etiology R10.13 08/16/18 1508 <Electronically signed by Jacques FRANCO> Date Jacques FRANCO [facility] Signature: Date (if applicable) CC: ABDOMEN LIMITED Observed: 08/16/2018 Status: F Source: [place] 11:09 AM [facility] REPOSITORY [facility] Imaging Services [address] [place] [address] Abdomen Limited MR#: [id number] Acct: [id number] Name: GAIL LACEY Rep #: [id number] : 1985 F 33 From: Lupillo Samuel MD PCP: Kaden Robles MD Status: REG CLI Study: Abdomen Limited Date of Exam: 08/16/18 Exam# [id number] Ordering Dr: Jacques Cheatham STUDY: ABDOMINAL ULTRASOUND - RIGHT UPPER QUADRANT REASON FOR VISIT: Female, 33 years old. Right upper quadrant pain. TECHNIQUE: Ultrasound evaluation of the right upper quadrant was performed with real-time and static mendes-scale imaging. TECHNICAL QUALITY: Adequate. COMPARISON: None. FINDINGS: Liver: The liver measures 14.3 cm. There is increased echogenicity consistent with fatty infiltration. The bile ducts are within normal limits. There is hepatic color flow. The direction of portal flow is hepatopetal. There is no demonstrated mass lesion. Gallbladder: Normal distended gallbladder. The gallbladder wall measures 2.6 mm. There is a negative sonographic Phan's sign. There is no pericholecystic fluid. There are no gallstones. Common Bile Duct (C.B.D.): The common bile duct measures 4.9 mm. Pancreas: Normal size of the head, body and tail of the pancreas. There is normal echogenicity of the pancreas. There is no demonstrated pancreatic mass or cyst. Right Kidney: Normal size of the right kidney. The right kidney measures 10.3 cm x 5.2 cm x 3.9 cm. Normal renal cortex. The right cortex measures 1.3 cm. There is no demonstrated renal mass or cyst. There is no right hydronephrosis. US/Abdomen Limited IMPRESSION: Fatty infiltration of the liver. Electronically Signed: Lupillo Samuel MD at 12:21 EDT Tel [phone], Service support , CC: Kaden Robles MD; Jacques FRANCO Bridge Painter Helper: Signed INITAL EVALUATION (1) Observed: 08/12/2018 Status: F Source: [place] - PT 9:29 AM [facility] REPOSITORY [facility] [address] [place] [address] Fax REHABILITATION SERVICES INITIAL EVALUATION MR#: [id number] Acct: [id number] Name: GAIL LACEY Rep #: [id number] : 1985 33 From: Marian Jensen DPT Referring Dr.: Jose Robertson MD Status: REG RCR Insurance: Ryla SELF PAY INSURANCE Patient's Visit Information GAIL LACEY is a 33 year old F referred to Physical Therapy by Jose Robertson with a diagnosis of Breast Cancer. Date of Evaluation: 08/12/18 Physical Therapist: Marian Jensen - Visit Plan Frequency: 3x /Week Duration: 6 Weeks Plan: Focus on gentle ROM and strength - Subjective Subjective: Diagnosed with breast cancer March 2017- April 06 2017 partial masectomy- July 2017 debridement- January 04 completion Masectomy- Jun [address] Gloria and Dr. Robertson were the surgeons. Possibly September or next year a revision- currently will not have reconstruction. Chemo in May- september 122016 was last day- May 23 of this year- radiation ended november 10. Still being monitored MD at hospital- today is last day of hyperbaric- incisions are closed. Currently the majority of the incision she has no feeling- has a small amount of breast tissue which is painful. Pain radiates into the left axillay. Has pain on the ribs and then down to the elbow. Skin Sensitivitiy- hypersensitive- Shoulder almost froze last fall. Worst: 5/10 Best: 0/10 Agg: laying on the left side, contact, kids headbutting her, reaching. Eases: removal of contact. Reports standard pain is more that she is more away and annoying. Jarring pains. Limitations of her life include- lowing dishes in her cabinet, sewing, lifting kids around, hug her . PMhx: breast cancer, hypothyroidism, asthma, sleep apnea, narcolepsy. Meds: synthroid, nubagil. Right hand dominate. MRI and x-rays recently scanned into computer. Sleep: disturbed- phantom limb and she can't fix it. Not use to sleeping on her right side and has for long periods of time. - Objective Posture: FH, RS, Increased guarding of the left UE. Gait: no deviation in LE but decreased arm swing on the left. Palpation: tender along scapula, upper trap to the tip of the acromion, down the bicipital groove- down into the axillay, pecs and down the triceps/biceps to the elbow- hypersensitive. ROM: Cervical: WNL Shoulder: Flexion: 140 degrees ABD: 110 degrees IR: equal ER: 60 degrees- all with increased pain/discomfort. Elbow: WNL. Strength: Shoulder: 4-/5 throughout with pain in available range. ELbow: 4/5, - Goals Goal 1:: Patient will be I with HEP and progression Goal Time Frame: 4-6 Weeks Goal 2:: Patient will demo full AROM of the left shoulder Goal Time Frame: 4-6 Weeks Goal 3:: Patient will demo 4+/5 strength in UE Goal Time Frame: 4-6 Weeks Goal 4:: Patient will maitain proper posture t/o tx session to demo increased scap s/s. Goal Time Frame: 4-6 Weeks - Rehabilitation Potential Physical Therapy Diagnosis: Patient presents with hypomobility- she has decreased ROM, strength and muscular endurance leading to poor ability to perform ADL's. Rehabilitation Potential: Good - Anticipated Interventions Patient/Client Instruction: Educate patient on: Benefits of Fitness Program Therapeutic Exercise to Include: Strength training, Agility training, Body mechanics, Postural training, Passive ROM, Active ROM, Scapular Strength/Stabilization For the Purpose of:: To improve muscle performance and motor function Manual Therapy Techniques to Include: Passive ROM TENS: Yes Cryotherapy (ice pack, ice massage): Yes Thermo therapy (hot pack): Yes Ultrasound (thermal/non thermal): No Thank you for the opportunity to evaluate your patient. For Medicare and Medicare HMO plans, please review the plan of care and approve it. It will need to be FAXED BACK to us at [phone] for Medicare purposes. Please let me know if there are questions or concerns regarding this plan of care. Physician Signature: Date: <Electronically signed by Marian Jensen DPT> 08/12/18 0929 CC: Kaden Robles MD; Jose Robertson MD ELR Signed For Medicare only, by signing this I certify the plan of care. Physicians Signature Date PLASTIC SURGERY Observed: 08/05/2018 Status: F Source: [place] VISIT REPORT 2:08 PM [facility] REPOSITORY [facility] [address] [address] OFFICE VISIT Date of Service: 08/03/18 MR#: [id number] Acct: [id number] Name: GAIL LACEY Jordan Rep #: [id number] : 1985 Provider: TRAE Palmer Age/Sex: 33/F Location: [facility] [place].[facility] Status: Signed Intake Vital Signs08/03/18 Height 5 ft 8 in 08/03/18 Weight: 215 lb 2 oz Intake Visit Reasons: postop surgery 06/24/18 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 Required: No Accompanied by: None Is patient in pain?: Yes (BREAST DISCOMFORT - ACHING) Pain scale (1-10): 1 Allergies hydromorphone [From Dilaudid] Allergy (Severe, Verified 08/03/18 09:27) Laryngospasms morphine Allergy (Severe, Verified 08/03/18 09:27) chest tightening TAPE Adverse Reaction (Mild, Uncoded 08/03/18 09:27) Other Medications Diazepam [Valium] 5 mg PO 4X/DAY PRN PRN #30 tab 06/26/18 [Rx Confirmed 07/13/18] Ondansetron HCl [Zofran] 8 mg PO TID PRN PRN #30 tab 06/26/18 [Rx Confirmed 07/13/18] Oxycodone HCl/Acetaminophen [Percocet 5/325] 1 - 2 tab PO 4X/DAY PRN PRN 7 Days #60 tab 06/26/18 [Rx Confirmed 07/13/18] levoFLOXacin tablet [Levaquin tablet] 500 mg PO DAILY #14 tab 06/26/18 [Rx Confirmed 07/13/18] Albuterol Inhaler [Ventolin Hfa (SP)] 1 - 2 puff INHALATION Q4H PRN PRN 07/11/18 [History Confirmed 07/13/18] Metronidazole [Flagyl] 500 mg PO Q8H 07/11/18 [History Confirmed 07/13/18] levothyroxine 50 mcg tablet 50 mcg PO DAILY #30 tab 07/13/18 [Rx Confirmed 07/13/18] Is last menstrual period known: Yes Post menopausal: No Patient : No PFSH Medical History Anxiety (Acute) Asthma (Acute) BLADDER/URINARY TRACT INFECTION (Acute) Breast cancer (Acute) Carpal tunnel syndrome (Acute) Depression (Acute) Headache (Acute) Hives (Acute) Immunodeficiency (Acute) NEUROPATHY AFTER ARM SURGERY (Acute) NON HEALING POST- LUMPECTOMY SEROMA ULCER LEFT BREAST (Acute) Narcolepsy and cataplexy (Acute) Neutropenia (Acute) Pneumonia (Acute) Polycystic ovary (Acute) Psychiatric disorder (Acute) Sleep apnea (Acute) Thyroid disease (Acute) Vitamin D deficiency (Acute) [place] teeth extracted (Acute) Surgical History H/O total mastectomy of left breast (Acute) HOSPITAL FEBRILE NEUTROPENIA DISCHARGED 07/14/2017 (Acute) History of lumpectomy (Acute) History of partial mastectomy of left breast (Acute 03/2017) PORT PLACEMENT (Acute 04/2017) Plantar wart (Acute 2007) S/P myringotomy with insertion of tube (Acute) SURGICAL PREPARATION LEFT LATERAL BREAST (Acute) med port placement (Acute) Family History Mother Psychiatric disorder Thyroid disorder Father Hyperlipidemia Hypertension Father Heart disease Aunt Seizures Grandmother Cancer Colon cancer Grandfather Diabetes Heart disease Social History Smoking Status: Former smoker alcohol intake: never what type of physical activity do you participate in: none seatbelt use: always do you feel safe at home: Yes additional social history: SUN EXPOSURE: RARELY - [place]- [employer] HPI postop surgery 06/24/18: Details: Postop visit from her recent surgery on 06/24/18 where she underwent revision reconstructed left breast with excision painful nonhealing radiation ulcer and excision painful excess mastectomy skin scar contour deformity. Patient presents with complaint of residual discomfort mostly on the medial aspect and superior aspect of the mastectomy incisional area. It is intermittent. Denies any fever or chills. Incision is dry and intact and healing. No clinical evidence of seroma. Operative cultures showed Staphylococcus aureus and anaerobic cocci. She is on Levaquin and Flagyl and has finished them. Pathology showed underlying adipose tissue and skeletal muscle tissue with focal fat necrosis, chronic inflammation and foreign body giant cell reaction Continue lona wrap for chest wall compression. 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 She recently needed placement of ear tubes. She states she will have done 33 treatments out of 40. She wants to stop so she can spend more time with her family. She will decide over the next several weeks whether she wants to proceed with the revision reconstructed left breast surgery in September. She does complain of some hypersensitivity in the left axilla as well as difficulty raising her left arm. She can only lift to 90 degrees. Some of this stiffness is due to her radiation therapy. She would benefit from PT for range of motion exercises and ultrasound massage which should help her hypersensitivity and stiffness. Also strengthening and edema management would be helpful. She had some questions regarding the possibility of developing lymphedema in the future and what measures can be done proactively to help minimize that risk. She was told that when she goes over to PT, she can ask them about lymphedema. They can give her some information on that. After her pain and stiffness around her left shoulder improve, then they can address the proactive measures regarding lymphedema. Followup 2 months. Assessment AND Plan Problems 1. Cancer of left female breast C50.912 2. 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 Deformity of reconstructed breast N65.0 5. Disproportion of reconstructed breast N65.1 6. Late effect of radiation T66.XXXS 7. 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 Pain of left breast N64.4 10. 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 Pain of left breast N64.4 Pain in left axilla M79.622 08/05/18 1408 <Electronically signed by Jazzy Palmer COMPRESSED YEAST SUPERVISOR-C> Date Jazzy Palmer COMPRESSED YEAST SUPERVISOR-C 08/03/18 1727<Electronically signed by Jose Robertson MD> Cosigner Signature: Date (if applicable) Jose Robertson MD CC: PROGRESS Observed: 07/26/2018 Status: COMPLETED Source: [place] 2:36 PM [facility] REPOSITORY O ID: [id number] Author: Judy Solares Service: (none) Author Type: Physician Type: Progress Notes Filed: 07/28/2018 8:55 AM Note Text: Chief Complaint: Gail is seen in follow up for psychiatric problem Interim History: Gail is feeling much better. She continues to have a strained relationship with her father. She can't count on him for help with her kids and doesn't trust him with their safety. Much stress related to her mother in law who tries to make them feel guilty for not spending time with her. . Her and Enrico are doing well together. Her mood is better and she is coping fairly well with cancer. Still has daily fatigue and lack of energy, it's a struggle to take care of kids without help. is a huge support. Sleep is improved. General Observations Appearance:Neatly groomed Demeanor:Cooperative Activity:Normal Eye Contact:Good Speech Rate:Normal Volume:Normal Articulation:Clear Coherent: Yes Spontaneous:Yes Language Naming:Intact Repetition:Intact Mood AND Affect Depression:Mild AnxietyModerate Anger:moderate Affect:Full and appropriate to topic, tearful Associations:Logical Process:Normal Knowledge: Good Delusion: No0 . Hallucination: No Suicidal Ideation:No suicidal ideation, intent or plan. Homicidal Ideation:No homicidal ideation, intent or plan. Judgement::Critical Insight:True Orientation:Person, Place, Time and Situation Gait and Station:Unsteady Memory:Intact Attention:Good Concentration:Good Review Of Systems Neurological: Sleep: Not great Headache: No Weakness:No Stiffness: No Tremor:No Gastrointestinal: Appetite:Good Nausea: No Bowel movements:N/A Skin rash: No Other : Diagnosis: AXIS I: ASSESSMENT/PLAN: Unspecified Anxiety Disorder major depression, recurrent, moderate Judy Solares MD Condition: stable Medication: None currently Therapy/ Treatment Plan: Provided support and reassurance. Discussed treatment options. Encouraged her to get back to the counselor she had been seeing and had a good relationship with her. We discussed pros and cons of medications and agreed that she will not start a medication at this time but will call if she feels she is not functioning like she should. Spent 20 min in psychotherapy focusing on coping techniques and release of stress. Plan discussed including risks, benefits, and side effects of medications (ongoing discussion) and patient agreeable to plan, Spent 30 minutes with the patient. Follow up in 3 months for a one hour psychotherapy session. Progress note marked as sensitive per patient request Yes. Judy Solares MD PLASTIC SURGERY Observed: 07/21/2018 Status: F Source: [place] VISIT REPORT 1:17 PM [facility] REPOSITORY [facility] [address] [place] [address] OFFICE VISIT Date of Service: 07/20/18 MR#: [id number] Acct: [id number] Name: GAIL LACEY Rep #: [id number] : 1985 Provider: TRAE Palmer Age/Sex: 33/F Location: [facility] [place] Status: Signed Intake Vital Signs07/20/18 Blood Pressure 117/88 H 07/20/18 Blood Pressure Location Rt brachial 07/20/18 Blood Pressure Position Sitting 07/20/18 Respiratory Rate 16 Intake Visit Reasons: postop surgery 06/24/18 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 Required: No Accompanied by: None Is patient in pain?: Yes (ACHING BREAST PAIN ) Pain scale (1-10): 2 Allergies hydromorphone [From Dilaudid] Allergy (Severe, Verified 07/20/18 10:08) Laryngospasms morphine Allergy (Severe, Verified 07/20/18 10:08) chest tightening TAPE Adverse Reaction (Mild, Uncoded 07/20/18 10:08) Other Medications Diazepam [Valium] 5 mg PO 4X/DAY PRN PRN #30 tab 06/26/18 [Rx Confirmed 07/13/18] Ondansetron HCl [Zofran] 8 mg PO TID PRN PRN #30 tab 06/26/18 [Rx Confirmed 07/13/18] Oxycodone HCl/Acetaminophen [Percocet 5/325] 1 - 2 tab PO 4X/DAY PRN PRN 7 Days #60 tab 06/26/18 [Rx Confirmed 07/13/18] levoFLOXacin tablet [Levaquin tablet] 500 mg PO DAILY #14 tab 06/26/18 [Rx Confirmed 07/13/18] Albuterol Inhaler [Ventolin Hfa (SP)] 1 - 2 puff INHALATION Q4H PRN PRN 07/11/18 [History Confirmed 07/13/18] Metronidazole [Flagyl] 500 mg PO Q8H 07/11/18 [History Confirmed 07/13/18] levothyroxine 50 mcg tablet 50 mcg PO DAILY #30 tab 07/13/18 [Rx Confirmed 07/13/18] PFSH Medical History Anxiety (Acute) Asthma (Acute) BLADDER/URINARY TRACT INFECTION (Acute) Breast cancer (Acute) Carpal tunnel syndrome (Acute) Depression (Acute) Headache (Acute) Hives (Acute) Immunodeficiency (Acute) NEUROPATHY AFTER ARM SURGERY (Acute) NON HEALING POST- LUMPECTOMY SEROMA ULCER LEFT BREAST (Acute) Narcolepsy and cataplexy (Acute) Neutropenia (Acute) Pneumonia (Acute) Polycystic ovary (Acute) Psychiatric disorder (Acute) Sleep apnea (Acute) Thyroid disease (Acute) Vitamin D deficiency (Acute) [place] teeth extracted (Acute) Surgical History H/O total mastectomy of left breast (Acute) HOSPITAL FEBRILE NEUTROPENIA DISCHARGED 07/14/2017 (Acute) History of lumpectomy (Acute) History of partial mastectomy of left breast (Acute 03/2017) PORT PLACEMENT (Acute 04/2017) Plantar wart (Acute 2007) S/P myringotomy with insertion of tube (Acute) SURGICAL PREPARATION LEFT LATERAL BREAST (Acute) med port placement (Acute) Family History Mother Psychiatric disorder Thyroid disorder Father Hyperlipidemia Hypertension Father Heart disease Aunt Seizures Grandmother Cancer Colon cancer Grandfather Diabetes Heart disease Social History Smoking Status: Former smoker alcohol intake: never what type of physical activity do you participate in: none seatbelt use: always do you feel safe at home: Yes additional social history: SUN EXPOSURE: RARELY - [place]- [employer] HPI postop surgery 06/24/18: Details: Postop visit from her recent surgery on 06/24/18 where she underwent revision reconstructed left breast with excision painful nonhealing radiation ulcer and excision painful excess mastectomy skin scar contour deformity. Patient presents with complaint of residual incisional pain mostly on the medial aspect and superior aspect of the mastectomy incisional area. Denies any fever or chills. Incision is dry and intact and healing. No clinical evidence of seroma. Drainage has been < 40 ml/day. Drain was removed today without difficulty. Operative cultures showed Staphylococcus aureus and anaerobic cocci. She is on Levaquin and Flagyl. She has finished the Flagyl. Pathology showed underlying adipose tissue and skeletal muscle tissue with focal fat necrosis, chronic inflammation and foreign body giant cell reaction Continue lona wrap for chest wall compression. 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 She recently needed placement of ear tubes. She will definitely benefit from additional HBO treatments (another 20) for her continued soft tissue radionecrosis in anticipation of additional revision breast reconstruction surgery. Tentatively will schedule the revision breast reconstruction surgery in early September. To improve the healing process after surgery to improve the soft tissue radionecrosis, anticipate will need additional HBO treatments after her next surgery in September. Followup 2 weeks. Assessment AND Plan Problems 1. Cancer of left female breast C50.912 2. 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 Deformity of reconstructed breast N65.0 5. Disproportion of reconstructed breast N65.1 6. 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 Pain of left breast N64.4 07/21/18 1317 <Electronically signed by Jazzy Palmer COMPRESSED YEAST SUPERVISOR-C> Date Jazzy Palmer COMPRESSED YEAST SUPERVISOR-C 07/20/18 2323<Electronically signed by Jose Robertson MD> Cosigner Signature: Date (if applicable) Jose Robertson MD CC: OFFICE VISIT REPORT Observed: 07/17/2018 Status: F Source: [place] 8:22 AM [facility] [address] [place] [address] OFFICE VISIT Date of Service: 07/11/18 MR#: [id number] Acct: [id number] Patient: GAIL LACEY Rep #: [id number] : 1985 Provider: Carolyn Be NP Age/Sex: 33/F Location: [facility] [place] Status: Signed Intake Vital Signs07/11/18 Height 5 ft 8 in 07/11/18 Weight: 216 lb 4 oz 07/11/18 Body Mass Index (BMI) 32.8 07/11/18 Blood Pressure 108/70 07/11/18 Blood Pressure Location Rt popliteal 07/11/18 Blood Pressure Position Sitting Intake Visit Reasons: Thyroid dysfunction 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 Required: No Accompanied by: Self Is patient in pain?: No Allergies hydromorphone [From Dilaudid] Allergy (Severe, Verified 07/13/18 14:25) Laryngospasms morphine Allergy (Severe, Verified 07/13/18 14:25) chest tightening TAPE Adverse Reaction (Mild, Uncoded 07/13/18 14:25) Other Medications Diazepam [Valium] 5 mg PO 4X/DAY PRN PRN #30 tab 06/26/18 [Rx Confirmed 07/13/18] Ondansetron HCl [Zofran] 8 mg PO TID PRN PRN #30 tab 06/26/18 [Rx Confirmed 07/13/18] Oxycodone HCl/Acetaminophen [Percocet 5/325] 1 - 2 tab PO 4X/DAY PRN PRN 7 Days #60 tab 06/26/18 [Rx Confirmed 07/13/18] levoFLOXacin tablet [Levaquin tablet] 500 mg PO DAILY #14 tab 06/26/18 [Rx Confirmed 07/13/18] Albuterol Inhaler [Ventolin Hfa (SP)] 1 - 2 puff INHALATION Q4H PRN PRN 07/11/18 [History Confirmed 07/13/18] Metronidazole [Flagyl] 500 mg PO Q8H 07/11/18 [History Confirmed 07/13/18] levothyroxine 50 mcg tablet 50 mcg PO DAILY #30 tab 07/13/18 [Rx Confirmed 07/13/18] Is last menstrual period known: No Post menopausal: No Patient : No PFSH Medical History Anxiety (Acute) Asthma (Acute) BLADDER/URINARY TRACT INFECTION (Acute) Breast cancer (Acute) Carpal tunnel syndrome (Acute) Depression (Acute) Headache (Acute) Hives (Acute) Immunodeficiency (Acute) NEUROPATHY AFTER ARM SURGERY (Acute) NON HEALING POST- LUMPECTOMY SEROMA ULCER LEFT BREAST (Acute) Narcolepsy and cataplexy (Acute) Neutropenia (Acute) Pneumonia (Acute) Polycystic ovary (Acute) Psychiatric disorder (Acute) Sleep apnea (Acute) Thyroid disease (Acute) Vitamin D deficiency (Acute) Surgical History H/O total mastectomy of left breast (Acute) HOSPITAL FEBRILE NEUTROPENIA DISCHARGED 07/14/2017 (Acute) History of lumpectomy (Acute) History of partial mastectomy of left breast (Acute 03/2017) PORT PLACEMENT (Acute 04/2017) Plantar wart (Acute 2007) S/P myringotomy with insertion of tube (Acute) SURGICAL PREPARATION LEFT LATERAL BREAST (Acute) [place] teeth extracted (Acute) med port placement (Acute) Family History Mother Psychiatric disorder Thyroid disorder Father Hyperlipidemia Hypertension Father Heart disease Aunt Seizures Grandmother Cancer Colon cancer Grandfather Diabetes Heart disease Social History Smoking Status: Former smoker alcohol intake: never what type of physical activity do you participate in: none seatbelt use: always do you feel safe at home: Yes additional social history: SUN EXPOSURE: RARELY - [place]- [employer] Questionnaire Depression Screen PHQ-2/9 PHQ-2 Over the last 2 weeks, how often have you been bothered by any of the following problems? 1. Little interest or pleasure in doing things: several days 2. Feeling down, depressed, or hopeless: not at all Total score: 1 If score is 2 or greater, continue 3. Trouble falling or staying asleep, or sleeping too much: nearly every day 4. Feeling tired or having little energy: several days 5. Poor appetite or overeating: several days 6. Feeling bad about yourself - or that you are a failure or have let yourself and your family down: several days 7. Trouble concentrating on things, such as reading the newspaper or watching television: more than half the days 8. Moving or speaking so slowly that other people could have noticed? - Or the opposite - being so fidgety or restless that you have been moving around a lot more than usual: not at all 9. Thoughts that you would be better off or of hurting yourself in some way: not at all Total score: 9 If you checked off any problems, how difficult have these problems made it for you to do your work, take care of things at home, or get along with other people?: somewhat difficult Source: Developed by Drs. Yfn Woods, Sheila Bhatt, Armando Johnson and colleagues, with an educational alfredo from [employer]. Scoring: Total Score Depression Severity Action 1-4 Minimal depression No action needed 5-9 Mild depression Repeat PHQ-9 at follow up 10-14 Moderate depression Make tx plan,consider counseling, fup, prescription HPI HPI Details: GAIL LACEY, is a 33 F who presents to the office today for consult of hypothyroidism. Reports she has historically been on levothyroxine 150mcg daily. However during the last several months she has only taken her medication sporadically. She reports that during her chemotherapy and treatment for breast cancer everything was just one more thing to do and she was very ill as well. She does present today with complaint of fatigue. Currently has drain tube in chest following breast surgery. Is following with Dr. Robertson and has further follow up scheduled. Also has appointment for ear tube replacement in a few days. Severity, modifying factors, context, and associated signs and symptoms are as follows: Thyroid pain: No Energy: Reduced Sleep: Not awakened refreshed Temp: No intolerance GI: varies, diarrhea to normal Weight: Flucuates Eyes: No change in vision Memory: describes as chemo brain Diaphoresis: Not significant Skin: Dry Hair : Unchanged Neuro: No numbness, tingling or tremors At time of visit: -Pt denies symptoms of hypertensive emergency (CP,SOB,MENEZES, or blurred vision) and hypotension(dizziness or lightheadedness) -Pt denies symptoms of hypoglycemia ( sweaty, confusion, anxiety, tremor, hunger, palpitations) and hyperglycemia ( polydipsia, polyuria) No recent thyroid labs. ROS Const Constitutional: Positive for fatigue and change in appetite; no anorexia, body ache, chills, fever(s), frequent falls, decreased energy, malaise, night sweats, weakness, weight change, sleep problems, abnormal sleep pattern, other, headache(s), snoring or excessive sweating Eyes Eyes: No blurry vision, change in vision, double vision, discharge, dry eyes, bulging eyes, floaters, visual disturbances, eye pain, light sensitivity, spots in vision, tunnel vision or other ENT ENT: Positive for nasal congestion; no abnormal hearing, ear pain, ear discharge, ear pressure, hearing loss, tinnitus, dizziness/vertigo, balance problems, nosebleed/epistaxis, nasal obstruction, nose pain, sinus pressure, sinus pain, nasal discharge, post nasal drip, headache(s), facial pain, dental pain, dry mouth, bad breath, hoarseness, lip swelling, mouth lesions, mouth pain, sore throat, tongue swelling, throat swelling, other, difficulty swallowing or neck pain Resp Respiratory: Positive for cough; no change in phlegm color, chest congestion, excessive phlegm production, hemoptysis, pain on inspiration, shortness of breath, pain with cough, snoring, stridor, wheezing or other Cardio Cardiology: No chest pain at rest, chest pain with exertion, leg pain with exertion, excessive sweating, shortness of breath, dyspnea on exertion, generalized swelling, irregular heart rhythm, lightheadedness, orthopnea, radiating jaw, neck or arm pain, fast heart rate, slow heart rate, palpitations or other Gastro GI: Positive for diarrhea and heartburn; no abdominal pain, belching, bloating, change in bowel habits, change in stool character, coffee ground emesis, constipation, cramping, difficulty swallowing, feeling full early, excessive flatus, incontinent of stools, Vomiting blood/hematemesis, blood in stool, loose stools, Black,tarry stools, nausea/dyspepsia, pain with swallowing, vomiting or other Genitourinary-Female: No difficulty urinating, burning urination, painful urination, urinary incontinence, urinary frequency, urinary urgency, urinary hesitancy, urinary retention, blood in urine, Frequent nighttime urination/ nocturia, post void dribbling, suprapubic fullness, side pain, sexual problems, genital lesions, genital itching, hot flashes, abnormal periods, abnormal vaginal bleeding, absent period, painful periods, light periods, heavy periods, difficulty getting , painful intercourse, pelvic pain, vaginal dryness, vaginal odor, Vaginal Itching or other Musc Musculoskeletal: No abnormal walking, joint pain, back pain, deformity, joint swelling, limited range of motion, loss of height, muscle cramps, muscle weakness, decreased muscle mass, body aches, neck pain, numbness, radiating pain into limb, stiffness, tingling or other Skin Skin: Positive for wounds (healing incision from revision of L mastectomy); no acne, hair loss, change in hair, nail changes, boil, change in skin color, dry skin, redness, excessive hair growth, yellowing of the skin, lesions, itching, rash, skin pain, skin ulcer, sores, skin swelling or other Breast Breast: No other Neuro Neurology: No frequent falls, weakness, visual disturbances, abnormal hearing, headache(s), abnormal walking, numbness or tingling Psych Psychiatric: No abnormal sleep pattern, Positive for change in appetite Endo Endocrine: Positive for fatigue; no other or excessive sweating Aller/Imm Allergy/Immunologic: No lip swelling, tongue swelling, throat swelling, wheezing or itchy eyes Exam Const General: comfortable, well groomed Nutritional Appearance: well nourished, overweight Orientation: oriented x3 HENMT Head: normal to inspection, atraumatic Ears: hearing grossly normal bilaterally Nose: external nose normal Face and sinus: normal facial exam Mouth: oral mucosae normal, moist mucous membranes Teeth and gingiva: dentition normal Eyes General: appearance normal, both eyes and all related structures Eyelids: eyelids normal Conjunctivae: conjunctivae normal Sclera: sclerae normal Neck Neck: normal visual inspection Neck mass: No Thyroid: thyroid normal Chest Chest palpation AND inspection: other (drainage tube placement) Resp Effort AND Inspection: normal respiratory effort, able to speak in complete sentences, symmetric chest movement Auscultation: Bilateral: Clear to Auscultation Cardio Rate: regular rate Rhythm: regular rhythm Heart Sounds: S1 normal, S2 normal, no murmurs GI Auscultation: normal bowel sounds Palpation: soft, no guarding Musc Musculoskeletal: No muscle weakness Skin Wounds: wounds noted (left breast surgical wound) Neuro General: oriented x3, moves all extremities, gait normal Cognition: normal cognition Speech: speech normal Gait: normal gait Extrem General: normal to inspection, normal capillary refill, full ROM Psych Appearance: grossly normal Mental Status: mental status grossly normal Mood: congruent mood Affect: normal affect Speech and Movement: speech and movement normal Attitude: cooperative Thought Process: normal Thought Content: normal Judgment: judgment good Assessment AND Plan 1. Hypothyroidism, unspecified type E03.9 Plan Will update labs and begin replacement therapy. Per patient she has been off replacement for over 6 months. Will review labs and determine appropriate dose. Enc to take daily and if she misses a dose to make up missed dose. Take on empty stomach. Do not take within 4 hours of calcium, iron, antacids, or vitamins. Orders Orders: Medications Discontinued: Plan Detail Other Orders Orders: Other Medications New: Additional Comments 1. Please schedule follow up in 3 months. 2. Lab work one week before appointment. Spent approximately 45 minutes with patient with over 50% of time spent in discussion and counseling regarding medication adjustment, symptoms and treatment of hypothyroidism. Coding Level of Care Code Off vis,new,level 3 Diagnoses Hypothyroidism, unspecified type E03.9 Hypothyroidism type: unspecified 07/17/18 0822 <Electronically signed by Carolyn LARKIN> Date Carolyn LARKIN Cosigner Signature: Date (if applicable) CC: PLASTIC SURGERY Observed: 07/15/2018 Status: F Source: [place] VISIT REPORT 4:26 PM [facility] REPOSITORY [facility] [address] [place] [address] OFFICE VISIT Date of Service: 07/13/18 MR#: [id number] Acct: [id number] Name: GAIL LACEY Rep #: [id number] : 1985 Provider: TRAE Palmer Age/Sex: 33/F Location: [facility] Status: Signed Intake Vital Signs07/13/18 Respiratory Rate 18 07/13/18 Pulse Rate 105 H Intake Visit Reasons: postop surgery 06/24/18 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 Required: No Accompanied by: None Is patient in pain?: Yes (BREAST PRESSURE AND SORE PAIN WHERE THE DRAINS ARE) Pain scale (1-10): 3 Allergies hydromorphone [From Dilaudid] Allergy (Severe, Verified 07/13/18 14:25) Laryngospasms morphine Allergy (Severe, Verified 07/13/18 14:25) chest tightening TAPE Adverse Reaction (Mild, Uncoded 07/13/18 14:25) Other Medications Diazepam [Valium] 5 mg PO 4X/DAY PRN PRN #30 tab 06/26/18 [Rx Confirmed 07/13/18] Ondansetron HCl [Zofran] 8 mg PO TID PRN PRN #30 tab 06/26/18 [Rx Confirmed 07/13/18] Oxycodone HCl/Acetaminophen [Percocet 5/325] 1 - 2 tab PO 4X/DAY PRN PRN 7 Days #60 tab 06/26/18 [Rx Confirmed 07/13/18] levoFLOXacin tablet [Levaquin tablet] 500 mg PO DAILY #14 tab 06/26/18 [Rx Confirmed 07/13/18] Albuterol Inhaler [Ventolin Hfa (SP)] 1 - 2 puff INHALATION Q4H PRN PRN 07/11/18 [History Confirmed 07/13/18] Metronidazole [Flagyl] 500 mg PO Q8H 07/11/18 [History Confirmed 07/13/18] levothyroxine 50 mcg tablet 50 mcg PO DAILY #30 tab 07/13/18 [Rx Confirmed 07/13/18] PFSH Medical History Anxiety (Acute) Asthma (Acute) BLADDER/URINARY TRACT INFECTION (Acute) Breast cancer (Acute) Carpal tunnel syndrome (Acute) Depression (Acute) Headache (Acute) Hives (Acute) Immunodeficiency (Acute) NEUROPATHY AFTER ARM SURGERY (Acute) NON HEALING POST- LUMPECTOMY SEROMA ULCER LEFT BREAST (Acute) Narcolepsy and cataplexy (Acute) Neutropenia (Acute) Pneumonia (Acute) Polycystic ovary (Acute) Psychiatric disorder (Acute) Sleep apnea (Acute) Thyroid disease (Acute) Vitamin D deficiency (Acute) Surgical History H/O total mastectomy of left breast (Acute) HOSPITAL FEBRILE NEUTROPENIA DISCHARGED 07/14/2017 (Acute) History of lumpectomy (Acute) History of partial mastectomy of left breast (Acute 03/2017) PORT PLACEMENT (Acute 04/2017) Plantar wart (Acute 2007) S/P myringotomy with insertion of tube (Acute) SURGICAL PREPARATION LEFT LATERAL BREAST (Acute) [place] teeth extracted (Acute) med port placement (Acute) Family History Mother Psychiatric disorder Thyroid disorder Father Hyperlipidemia Hypertension Father Heart disease Aunt Seizures Grandmother Cancer Colon cancer Grandfather Diabetes Heart disease Social History Smoking Status: Former smoker alcohol intake: never what type of physical activity do you participate in: none seatbelt use: always do you feel safe at home: Yes additional social history: SUN EXPOSURE: RARELY - [place]- [employer] HPI postop surgery 06/24/18: Details: Postop visit from her recent surgery on 06/24/18 where she underwent revision reconstructed left breast with excision painful nonhealing radiation ulcer and excision painful excess mastectomy skin scar contour deformity. Patient presents with complaint of incisional sensitivity. Denies any fever or chills. Incision is dry and intact and healing well. Drainage has been >50 ml/day. She states the drainage has been as much as 170 ml/day. Will hold off on removing the drain today. Will remove it next week. Operative cultures showed Staphylococcus aureus and anaerobic cocci. She is on Levaquin and Flagyl. Pathology showed underlying adipose tissue and skeletal muscle tissue with focal fat necrosis, chronic inflammation and foreign body giant cell reaction Continue lona wrap for chest wall compression. She is currently getting HBO treatments for her radiation soft tissue necrosis. She recently needed placement of ear tubes. Follow up one week for drain removal. Assessment AND Plan Problems 1. Cancer of left female breast C50.912 2. 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 Disproportion of reconstructed breast N65.1 5. Deformity of reconstructed breast N65.0 6. Late effect of radiation T66.XXXS 7. Pain of left breast N64.4 Coding Level of Care Code Global Post Op Diagnoses Cancer of left female breast C50.912 Radiation skin ulcer of chest L98.499 Acquired absence of left breast and nipple Z90.12 Disproportion of reconstructed breast N65.1 Deformity of reconstructed breast N65.0 Late effect of radiation T66.XXXS Pain of left breast N64.4 07/15/18 1626 <Electronically signed by Jazzy BELTRANC> Date Jazzy Palmer COMPRESSED YEAST SUPERVISOR-C 07/15/18 1501<Electronically signed by Jose Robertson MD> Cosigner Signature: Date (if applicable) Jose Robertson MD CC: OPERATIVE REPORT Observed: 07/12/2018 Status: F Source: [place] 2:52 PM [facility] REPOSITORY [facility] Medical Records Department [address] [place] [id number] Operative Report 07/12/18 1425 MR#: [id number] Acct: [id number] Name: GAIL LACEY Rep #: [id number] : 1985 33 From: Saad Moran MD PCP: Kaden Robles MD Status: REG [facility] [place] Y Location: [place] [address] Problem List (1) Chronic serous otitis media of both ears Status: Chronic Report of Operation Date of Procedure: 07/12/18 Pre-Operative Diagnosis: chronic serous otitis media, right and left Post-Operative Diagnosis: chronic serous otitis media, right and left Surgery/Procedure Performed:: placement pressure equalization tubes, right and left ears Type of Anesthesia:: General Description of Procedure: on the day of the procedure, after appropriate informed consent was obtained, the patient was brought to the operating room and placed in supine position on the operating table. she was placed under general anesthesia. the left ear was examined with the binocular operating microscope. a speculum was placed. the tympanic membrane was viewed in its entirety and found to be intact. a radial myringotomy was made and a humphries tympanostomy tube was placed. floxin otic drops were instilled. the right ear was examined with the binocular operating microscope. a speculum was placed. the tympanic membrane was viewed in its entirety and found to be intact. the previous tube was removed and a new radial myringotomy was made and a humphries tympanostomy tube was placed. floxin otic drops were instilled. the patient was awoken from anesthesia and transferred to the PACU in stable condition. 07/12/18 3312 <Electronically signed by Saad Moran MD> Date Saad Moran MD CC: Kaden Robles MD; Mario Moran MD Signed DISCHARGE INSTRUCTION Observed: 07/12/2018 Status: F Source: [place] 2:25 PM [facility] REPOSITORY [facility] Medical Records Department [address] [place] [address] Instructions for Home/Discharge Instructions 07/12/18 1425 MR#: [id number] Acct: [id number] Name: GAIL LACEY Rep #: [id number] : 1985 33 From: Saad Moran MD PCP: Kaden Robles MD Status: REG [facility] [place] You will use the following diet at home:: No restrictions Discharge Activity: Return to Normal Activity Call your doctor if your incision/area has: Increased Pain/ Swelling Allergies/Adverse Reactions: Allergies hydromorphone [From Dilaudid] Allergy (Severe, Verified 07/11/18 10:41) Laryngospasms morphine Allergy (Severe, Verified 07/11/18 10:41) chest tightening TAPE Adverse Reaction (Mild, Uncoded 07/11/18 10:41) Other Medications to take at Discharge Diazepam [Valium] 5 mg PO 4X/DAY PRN PRN #30 tab 06/26/18 Ondansetron HCl [Zofran] 8 mg PO TID PRN PRN #30 tab 06/26/18 Oxycodone HCl/Acetaminophen [Percocet 5/325] 1 - 2 tab PO 4X/DAY PRN PRN 7 Days #60 tab 06/26/18 levoFLOXacin tablet [Levaquin tablet] 500 mg PO DAILY #14 tab 06/26/18 Albuterol Inhaler [Ventolin Hfa (SP)] 1 - 2 puff INHALATION Q4H PRN PRN 07/11/18 Metronidazole [Flagyl] 500 mg PO Q8H 07/11/18 levothyroxine 150 mcg tablet 150 mcg PO DAILY #30 tab 07/11/18 Primary Care Physician: Kaden Robles MD [Primary Care Provider] - Test Results: Test results from this visit will be discussed in further detail at your follow-up appointment, if applicable. Please Follow Up With: Saad Moran MD When: 3 weeks 07/12/18 1425 <Electronically signed by Saad Moran MD> Date Saad Moran MD CC: Kaden Robles MD ,URINE Collected: 07/12/2018 Status: F Source: [place] 12:55 PM [facility] REPOSITORY TYPE CODE TESTS RESULT OUT OF REFERENCE UNITS RANGE LAB L400.8000 Negative Normal HCGUQUAL Negative Result Comment: Very dilute urine specimens, as indicated by a low specific gravity, may not contain treasury representative levels of hCG. If is still suspected, a first morning urine specimen should be collected 48 hours later and tested. Performed By: #### L400.7600 #### [facility] [address] [place], [place], [address] FREE T3 Collected: 07/11/2018 Status: F Source: [place] 1:07 PM [facility] REPOSITORY TYPE CODE TESTS RESULT OUT OF RANGE REFERENCE UNITS LAB L501.95689 2.18-3.98 pg/mL Normal FREE T3 3.0 Performed By: #### L501.22159, L501.9520, L506.0400 #### [facility] [address] [place], [address] THYROID STIM HORMONE Collected: 07/11/2018 Status: F Source: [place] (TSH) 1:07 PM [facility] REPOSITORY TYPE CODE TESTS RESULT OUT OF RANGE REFERENCE UNITS LAB L501.9520 0.358-3.74 uIU/mL High TSH 4.22 Performed By: #### L501.78055, L501.9520, L506.0400 #### [facility] [address] [place], [address] T4 FREE DIRECT Collected: 07/11/2018 Status: F Source: [place] 1:07 PM [facility] REPOSITORY TYPE CODE TESTS RESULT OUT OF RANGE REFERENCE UNITS LAB L506.0400 0.76-1.46 ng/dL Normal T4 FREE 1.06 DIRECT Performed By: #### L501.78737, L501.9520, L506.0400 #### [facility] [address] [place], [address] PELVIC (NON ) Observed: 07/11/2018 Status: F Source: [place] 8:39 AM [facility] REPOSITORY [facility] Imaging Services [address] [place] [address] Pelvic (Non ) MR#: [id number] Acct: [id number] Name: GAIL LACEY Rep #: [id number] : 1985 F 33 From: Junior Hicks MD PCP: Kaden Robles MD Status: REG CLI Study: Pelvic (Non ) Date of Exam: 07/11/18 Exam# [id number] Ordering Dr: Gini Alcala MD STUDY: ULTRASOUND OF THE FEMALE PELVIS - COMPLETE REASON FOR EXAM: Female, 33 years old. Ovarian cyst. LMP: 06/22/2018 TECHNIQUE: Transabdominal and Transvaginal TECHNICAL QUALITY: Adequate. COMPARISON: None. FINDINGS: The uterus is anteverted and is in a midline position. The uterus measures 9.7 x 6.7 x 4.4 cm. There is a Nabothian cyst of the cervix. The endometrium measures 10 mm in thickness, and is hyperechoic. There is no demonstrated endometrial mass. There is no demonstrated myometrial mass. I.U.D. - The patient does not have an I.U.D. The right ovary is visualized. The right ovary measures 2.6 x 2.0 x 2.2 cm. There is no right ovarian cyst or ovarian mass. There is no visualized right adnexal mass or complex lesion. There is normal arterial and normal venous vascularity. The left ovary is visualized. The left ovary measures 4.4 x 2.8 x 2.9 cm. There is a 2.8 cm simple cyst. There is no visualized left adnexal mass or complex lesion. There is normal arterial and normal venous vascularity. There is trace fluid in the cul-de-sac. US/Pelvic (Non ) IMPRESSION: 2.8 cm simple cyst of the left ovary, otherwise negative female pelvis. Electronically Signed: Junior Hicks MD at 17:10 EDT , Service support , CC: Kaden Robles MD; Gini Alcala MD Bridge Painter Helper: Signed TRANSVAGINAL Observed: 07/11/2018 Status: F Source: [place] NON- 8:39 AM [facility] REPOSITORY [facility] Imaging Services [address] [place] [address] Transvaginal Non- MR#: [id number] Acct: [id number] Name: GAIL LACEY Rep #: [id number] : 1985 F 33 From: Junior Hicks MD PCP: Kaden Robles MD Status: REG CLI Study: Transvaginal Non- Date of Exam: 07/11/18 Exam# [id number] Ordering Dr: Gini Alcala MD STUDY: ULTRASOUND OF THE FEMALE PELVIS - COMPLETE REASON FOR EXAM: Female, 33 years old. Ovarian cyst. LMP: 06/22/2018 TECHNIQUE: Transabdominal and Transvaginal TECHNICAL QUALITY: Adequate. COMPARISON: None. FINDINGS: The uterus is anteverted and is in a midline position. The uterus measures 9.7 x 6.7 x 4.4 cm. There is a Nabothian cyst of the cervix. The endometrium measures 10 mm in thickness, and is hyperechoic. There is no demonstrated endometrial mass. There is no demonstrated myometrial mass. I.U.D. - The patient does not have an I.U.D. The right ovary is visualized. The right ovary measures 2.6 x 2.0 x 2.2 cm. There is no right ovarian cyst or ovarian mass. There is no visualized right adnexal mass or complex lesion. There is normal arterial and normal venous vascularity. The left ovary is visualized. The left ovary measures 4.4 x 2.8 x 2.9 cm. There is a 2.8 cm simple cyst. There is no visualized left adnexal mass or complex lesion. There is normal arterial and normal venous vascularity. There is trace fluid in the cul-de-sac. US/Transvaginal Non- IMPRESSION: 2.8 cm simple cyst of the left ovary, otherwise negative female pelvis. Electronically Signed: Junior Hicks MD at 17:10 EDT , Service support , CC: Kaden Robles MD; Gini Alcala MD Bridge Painter Helper: Signed CONSULTATION Observed: 07/10/2018 Status: F Source: [place] 4:45 PM [facility] REPOSITORY [facility] Medical Records Department [address] [place] [address] Consultation 06/25/18 1506 MR#: [id number] Acct: [id number] Name: GAIL LACEY Rep #: [id number] : 1985 33 From: Collette Medellin MD PCP: Kaden Robles MD Status: DIS DOUGLAS Y Location: [place] [address] Problem List (1) Speech disturbance Status: Acute Qualifiers: Speech disturbance type: unspecified speech disturbance Qualified Code(s): R47.9 - Unspecified speech disturbances Reason for Consult Date of Consultation: 06/25/18 Reason for Consultation: speech disturbance History of Present Illness: The patient is a 33 year old CF with PMH STEVE on CPAP, Narcolepsy, Anxiety/depression, ?H/O Bipolar d/o, hypothyroidism, H/O Breast cancer s/p lumpectomy, mastectomy, chemotherapy, had left mastectomy on 06/24/18 and later that night had episode of speech disturbance where she was not able to get her words out, the event lasted for about 1-11/2 hour, after which she improved, per patient she was going to go the bathroom when she felt woozy and stumbled and was not able to get her words out, there was no focal deficits, patient denies any loss of awareness, witnessed seizures, tongue bite, urinary incontinence or post ictal state, per Dr. Taylor who called stroke alert for her symptoms, her vitals were normal and she was not given IVtpa since patient had mastectomy on the same day. Per patient she has been having these speech disturbances since the age 16, now the frequency has decreased, it has happened only twice this year and per patient used to happen more frequently in the past, in the past sometimes she would have speech disturbances where she would not be able to move her body but would be aware of the same, she has been diagnosed with Narcolepsy by Dr. Tadeo per patient. Per patient she had numerous MRI brain and EEGs normal in the past. During this admission following this episode MRI brain and CTA head/neck were reported to be normal. At present patient denies any MENEZES, speech disturbances, visual disturbances, focal motor weakness or sensory loss. Per patient she was diagnosed with bipolar d/o in the past and was on Lamictal for the same, but it was discontinued by her present psychiatrist last year around February 2017. [] Past Medical History Past Medical History (Chronic Problems): Chronic Problems (Last Reviewed 06/13/18 @ 09:12 by Mile Healy) Anemia (Chronic) Intermittent epigastric abdominal pain (Chronic) Personal history of malignant neoplasm of breast (Chronic) Cancer of left female breast (Chronic) Fatty liver (Chronic) STEVE (obstructive sleep apnea) (Chronic) Chronic back pain (Chronic) Hypothyroidism (Chronic) Narcolepsy (Chronic) Anxiety and depression (Chronic) Medical History: Medical History (Last Reviewed 06/13/18 @ 09:12 by Mile Healy) Anxiety F41.9 Asthma J45.909 BLADDER/URINARY TRACT INFECTION Breast cancer C50.919 Carpal tunnel syndrome G56.00 Depression F32.9 Headache R51 Hives L50.9 Immunodeficiency D84.9 NEUROPATHY AFTER ARM SURGERY NON HEALING POST- LUMPECTOMY SEROMA ULCER LEFT BREAST LEFT LATERAL BREAST Neutropenia D70.9 Pneumonia J18.9 Polycystic ovary E28.2 Psychiatric disorder F99 Sleep apnea G47.30 Thyroid disease E07.9 Vitamin D deficiency E55.9 med port placement Allergies hydromorphone [From Dilaudid] Allergy (Severe, Verified 06/24/18 12:07) Laryngospasms morphine Allergy (Severe, Verified 06/24/18 12:07) chest tightening TAPE Adverse Reaction (Mild, Uncoded 06/24/18 12:07) Other Home Medications: Ambulatory Orders Medication Instructions Recorded Albuterol Aerosols [Ventolin 2.5 mg INHALATION Q2H PRN PRN 01/17/18 Aerosols] vial.neb. Silver/Hydrocolloid Dressing 1 ea TP .QDAILY #30 bandage 01/17/18 Surgical History: Surgical History (Last Reviewed 06/13/18 @ 09:12 by Mile Healy) H/O total mastectomy of left breast Z90.12 HOSPITAL FEBRILE NEUTROPENIA DISCHARGED 07/14/2017 History of lumpectomy Z98.890 History of partial mastectomy of left breast Onset Date: 03/2017 Z98.890, Z90.12 PORT PLACEMENT Onset Date: 04/2017 Plantar wart Onset Date: 2007 B07.0 SURGICAL PREPARATION LEFT LATERAL BREAST WITH INCISION AND DRAINAGE AND EXCISION NON HEALING SURGICAL LUMPECTOMY SEROMA ULCER WITH 9 CM COMPLEX SECONDARY WOUND CLOSURE 08/05/2017 [place] teeth extracted K08.499 Surgical History: - - [place] teeth, Planter Wart, Partial Mastectomy 04/06/17, Port Placement, left lateral breast with incision and drainage and excision nonhealing post-lumpectomy seroma ulcer with 9 cm complex secondary wound closure, recent Revision left breast reconstruction with excision painful infected lateral radiation lumpectomy scar contour deformity with completion mastectomy. Psychiatric History: Anxiety, Depression CRUCIBLE FURNACE TENDER History: No pertinent CRUCIBLE FURNACE TENDER history Lives: Spouse/ Significant Other Smoking Status: Former smoker Alcohol: None Drugs: None - *Family History Maternal Family History: Family History (Last Reviewed 06/13/18 @ 09:12 by Mile Healy) Mother Psychiatric disorder Thyroid disorder Father Hyperlipidemia Hypertension Father Heart disease Aunt Seizures Grandmother Cancer Colon cancer Grandfather Diabetes Heart disease History Items: - - Thyroid disease, psychiatric disorder. Paternal Family History: Family History (Last Reviewed 06/13/18 @ 09:12 by Mile Healy) Mother Psychiatric disorder Thyroid disorder Father Hyperlipidemia Hypertension Father Heart disease Aunt Seizures Grandmother Cancer Colon cancer Grandfather Diabetes Heart disease History Items: Heart Disease, Hypertension Review of Systems Constitutional: Reports: - - complete ROS negative except as documented in HPI Patient Problems: Active and Suspected Problems (Last Reviewed 06/13/18 @ 09:12 by Mile Healy) Speech disturbance (Acute) Transient global amnesia (Acute) - Physical Exam General: Alert HEENT: Normocephalic Neck: Supple Lungs: Normal air movement Cardiovascular: Normal S1, Normal S2 Abdomen: Bowel Sounds Present Extremities: No cyanosis Musculoskeletal: No Tenderness to Palpation of Joints or Extremities Neurological: Cranial nerves II-XII grossly intact, Deep Tendon Reflexes 2+/4 and Symmetrical, Neuro grossly intact, Motor Exam 5/5 strength throughout, Muscle tone normal, Sensory exam intact to light touch and pain, Coordination normal Psych/Mental Status: Normal Affect Vital Signs Temp Pulse Resp BP Pulse Ox 98.3 F 93 18 115/80 100 06/25/18 15:03 06/25/18 15:03 06/25/18 15:03 06/25/18 15:03 06/25/18 15:03 Oxygen Flow Rate (L/min) 2 Oxygen Delivery Method Room Air Weight: 98.6 kg Body Mass Index (BMI) 32.5 Finger Stick Blood Glucose 145 Intake and Output for Last 24 Hours Intake Total 1700 / 1700 927.3 / 927.3 Output Total 1065 / 1065 Balance 1700 / 1700 -137.7 / -137.7 Microbiology Past 72 Hours 06/24/18 17:47 Wound Culture - Preliminary Tissue - Breast No growth-Final to follow Laboratory Tests Past 24 Hrs WBC 7.7 RBC 3.35 L Hgb 10.3 L POC Glucose POC Glucose 145 H Assessment/Plan All Active Problems (Last Reviewed 06/13/18 @ 09:12 by Mile Healy) Speech disturbance (Acute) Transient global amnesia (Acute) Left ovarian cyst (Acute) Encounter for preconception consultation (Acute) GERD (gastroesophageal reflux disease) (Acute) Family history of colon cancer in father (Acute) Open wound of left breast with complication (Acute) Acquired absence of left breast and nipple (Acute) Wound infection (Acute) Late effect of radiation (Acute) Medication management (Acute) Pain of left breast (Acute) Other specified complications of surgical and medical care, not elsewhere classified, subsequent encounter (Acute) Disproportion of reconstructed breast (Acute) Deformity of reconstructed breast (Acute) Drug induced neutropenia (Resolved) Pancytopenia (Resolved) Fever (Acute) Febrile neutropenia (Acute) The patient is a 33 year old CF with PMH STEVE on CPAP, Narcolepsy, Anxiety/depression, ?H/O Bipolar d/o, hypothyroidism, H/O Breast cancer s/p lumpectomy, mastectomy, chemotherapy, had left mastectomy on 06/24/18 and later that night had episode of speech disturbance where she was not able to get her words out, the event lasted for about 1-11/2 hour, after which she improved, per patient she was going to go the bathroom when she felt woozy and stumbled and was not able to get her words out, there was no focal deficits, patient denies any loss of awareness, witnessed seizures, tongue bite, urinary incontinence or post ictal state, per Dr. Taylor who called stroke alert for her symptoms, her vitals were normal and she was not given IVtpa since patient had mastectomy on the same day. Per patient she has been having these speech disturbances since the age 16, now the frequency has decreased, it has happened only twice this year and per patient used to happen more frequently in the past, in the past sometimes she would have speech disturbances where she would not be able to move her body but would be aware of the same, she has been diagnosed with Narcolepsy by Dr. Tadeo per patient. Per patient she had numerous MRI brain and EEGs normal in the past. During this admission following this episode MRI brain and CTA head/neck were reported to be normal. At present patient denies any MENEZES, speech disturbances, visual disturbances, focal motor weakness or sensory loss. Per patient she was diagnosed with bipolar d/o in the past and was on Lamictal for the same, but it was discontinued by her present psychiatrist last year around February 2017. 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 Tadeo her sleep specialist after discharge for further management of Narcolepsy -MRI brain and CTA head/neck reviewed -Check EEG -Further medical management per primary team/ICU team -GI/DVT prophylaxis -Fall precautions -Please call with questions if any -Thank you for allowing us to participate in patient's care and management I spent 60 minutes of critical care time taking history, doing physical examination, reviewing medical records, coordinating care and counseling the patient. Code Visit Inpatient E AND M: [id number] Init Hosp L3 07/10/181644 <Electronically signed by Collette Medellin MD> Date Collette Medellin MD Cosigner Signature (if applicable): Date CC: Thomas Medellin MD; Kaden Robles MD; Jose Robertson MD; Albert Gmoez MD Signed ELECTROENCEPHALOGRAM Observed: 07/10/2018 Status: F Source: [place] 4:45 PM [facility] REPOSITORY [facility] Pulmonary Services/Neurology [address] [place] [address] MR#: [id number] Acct: [id number] Name: GAIL LACEY Rep #: [id number] : 1985 33 From: Collette Medellin MD Referring Dr: Marcelo TREVIZO,Jose Status: DIS DOUGLAS Ordering Dr: Date: Location: [facility] [id number] Sex: F C - Electroencephalogram Date of service 06/25/2018 History EEG is being done in this 33 yr F to rule out seizures EEG Description: This is an 18 channel EEG with 10-20 lead placement system. Bipolar montages, Referential and Circumferential montages were reviewed. Photic stimulation and Hyperventilation were performed. The posterior dominant rhythm is11 HZ synchronous, symmetric, reacting to eye opening and closing. Photo stimulation elicited normal driving response but no abnormal photoparoxysmal response, Hyperventilation did not elicit any abnormal photoparoxysmal response. Drowsiness was identified. There is no abnormal background slowing noted. There was no epileptiform discharges or electrographic seizures noted during this recording. EKG artefact noted during the record. EEG Interpretation This is a normal awake and drowsy EEG. There is no epileptiform discharges or electrographic seizures noted during the record. 07/10/181644 <Electronically signed by Collette Medellin MD> Date Collette Medellin MD CC: Thomas Medellin MD; Kaden Robles MD; Jose Robertson MD Date Dictated: 06/27/181403 Date Transcribed: 06/27/181403 Bridge Painter Helper: RSR Signed CA 125 SERIAL Collected: 07/04/2018 Status: F Source: [place] MONITOR 9:50 AM [facility] REPOSITORY TYPE CODE TESTS RESULT OUT OF RANGE REFERENCE UNITS LAB L3100.5010 0.0-38.1 U/mL Normal CA125 8.7 2303 Result Comment: Jayshree ECLIA methodology Performed at: [facility] [id number] Senior Application Programmer: Edmundo Vaughan PhD, Phone: [phone] LAB L3100.5019 Normal CA 125 SM GRAPH Result Comment: Scanned image report available in EMR Performed By: #### L3100.4950 #### [facility] (refer to report for specific site) refer to report for address and phone number UNILAT RT SCRN Observed: 07/04/2018 Status: F Source: [place] W/CAD 8:53 AM [facility] REPOSITORY [facility] Imaging Services [address] [place] [address] UNILAT RT SCRN W/CAD MR#: [id number] Acct: [id number] Name: GAIL LACEY Rep #: [id number] : 1985 F 33 From: Lupillo Samuel MD PCP: Kaden Robles MD Status: REG CLI Study: UNILAT RT SCRN W/CAD Date of Exam: 07/04/18 Exam# [id number] Ordering Dr: Owen Edouard MD MAMMOGRAPHY - UNILATERAL SCREENING: RIGHT BREAST REASON FOR EXAM: Female, 33 years old. Routine annual screening examination (unilateral). PERTINENT HISTORY: Personal history of breast cancer. Prior left lumpectomy and left mastectomy. History of chemotherapy and radiation therapy. TECHNIQUE: Digital unilateral breast jesus (3D mammographic acquisition) in the CC and MLO projections. 2-D mediolateral oblique (MLO) and craniocaudad (CC) views of both breasts were obtained. CAD: Full Field Digital Mammography with Computer Added Detection was performed. COMPARISON: Comparison is made with prior study dated March 01, 2017 and prior examination dated April 06, 2017. FINDINGS: Breast Composition: There are scattered areas of fibroglandular density. There are no dominant masses or suspicious calcifications. No other significant abnormalities are identified. There has been no significant change since the prior study. BI/UNILAT RT SCRN W/CAD IMPRESSION: Stable unilateral screening mammogram. Yearly follow-up mammogram recommended. (A) ASSESSMENT CATEGORY: BIRADS Category 1: Negative. A letter regarding these results will be sent to the patient by the facility within 30 days. Approximately 10% of breast cancers are not detected by mammography. A normal mammogram should not delay biopsy of a clinically suspicious abnormality. [id number] Electronically Signed: Lupillo Samuel MD at 10:09 EDT Tel [phone], Service support , CC: Kaden Robles MD; Owen Edouard MD Bridge Painter Helper: Signed OPERATIVE REPORT Observed: 07/03/2018 Status: F Source: [place] 11:24 PM [facility] REPOSITORY [facility] Medical Records Department [address] [place] [address] Operative Report 06/24/18 1815 MR#: [id number] Acct: [id number] Name: GAIL LACEY Rep #: [id number] : 1985 33 From: Jose Robertson MD PCP: Kaden Robles MD Status: DIS DOUGLAS Y [place] [facility] [place] [id number] Report of Operation Date of Procedure: 06/24/18 Pre-Operative Diagnosis: 1. Left breast cancer. 2. 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 3. Disproportion reconstructed left breast. 4. Deformity reconstructed left breast with excess painful mastectomy skin scar contour deformity with associated radiation ulcer. 5. Post-mastectomy painful indentation scar contour deformity left lateral breast. 6. s/p lumpectomy left breast with chemotherapy and radiation therapy. 7. s/p completion mastectomy left breast. 8. Late effect radiation left breast. Post-Operative Diagnosis: Same. Surgery/Procedure Performed:: Revision reconstructed left breast with excision painful nonhealing radiation ulcer and excision painful excess mastectomy skin scar contour deformity. Description of Surgical Findings:: 33 year old woman presents with left breast cancer that necessitated initially a lumpectomy and then later on a completion mastectomy. She had chemotherapy and radiation therapy postop. The completion mastectomy was not closed because it had already been radiated. Healing was slow with Silver dressing changes and the VAC and antibiotics. The wound almost healed but there remained a smaller residual wound. [facility] The wound had been improving with decreased size, but she was having persistent pain in her left mastectomy wound. She has just started HBO treatments and will continue them after her surgery. At the time of her completion mastectomy, wound cultures were obtained. They showed Acinetobacter radioresistens and MRSE. She was treated with IV Ceftriaxone and tolerated the antibiotics. Patient was informed of the risks and complications of the procedure including alternatives to surgery. These were discussed with the patient personally. Patient voices understanding and wishes to proceed. I used Pola absorbable hemostat, (I used 2 vials). Reference Number - [id number]. Lot Number - [id number]. Expiration - April 14, 2023. log raft worker: Lois Diaz. Type of Anesthesia:: General Specimen's removed: Excess mastectomy skin scar contour deformity and painful radiation ulcer to Pathology and Microbiology. Drains: Nataly. Estimated Blood Loss (mL): 150 ml. Description of Procedure: Patient was seen in the preop area. She was placed in sitting position and markings were made. I wanted to have her lift her left arm up as I decided how much skin to excise. I told her I would be a little more conservative with the excision because of her history of radiation which can aggravate skin tightness postop. Patient was taken to OR in supine position and was placed under general anesthesia. The left breast was prepped and draped in the usual fashion. SCD's were placed for DVT prophylaxis. Perioperative antibiotics were given intravenously. Using xylocaine with epinephrine, the left breast was infiltrated. After waiting 5 minutes for the anesthetic to take effect, I excised the nonhealing radiation ulcer on the lateral aspect and the excess painful mastectomy skin scar contour deformity on the medial aspect down through the subcutaneous tissue until the underlying muscle was seen. There was a lot of dense fibrotic scar tissue on the muscle which was excised to symptomatic relief. The extra bruising on the muscle from the excision of this fibrotic scar tissue will cause me to write for extra Valium for spasm during the postop period. There was a palpable area of firmness on the medial aspect of the breast mastectomy scar. That was dissected free and excised off the chest wall muscle. It appeared to be consistent with fat necrosis. It will be sent with the rest of the breast tissue to Pathology. Some of the tissue was sent to Microbiology for culture. A positive culture will necessitate antibiotic therapy. The rest of the tissue was sent to Pathology for analysis to rule out carcinoma. Hemostasis was obtained with electrocautery. The wound was irrigated with saline. A size 15 Nataly drain was placed through separate stab incision inferiorly and secured to the skin with 3-0 Nylon interrupted suture. I then sprayed Pola absorbable hemostat into the left breast mastectomy wound to minimize seroma postoperatively. I used 2 vials of Pola. I then closed the left breast mastectomy wound with 3-0 Monocryl figure of eight interrupted suture for the deep subcutaneous tissue and fascia. The deep dermis and subcutaneous tissue was approximated with 3-0 Monocryl interrupted sutures. The skin was approximated with 3-0 V-lock unidirectional barbed running subcuticular suture. This was followed by Histoacryl skin tissue adhesive followed by Kerlix gauze abd ABD pads as a compression dressing. This was followed by a compression LONA wrap. Patient tolerated the procedure well and was sent to PACU in satisfactory condition. Patient will be sent upstairs for continued postop care. Grafts/Implants Used: None. - Complications None. - Admit VTE Documentation VTE Present on Admission: No VTE Mechan Device Prophylaxis: SCD's VTE Pharm Prophylaxis ordered?: Yes Code Visit Surgery Charges CPT - 04643 ICD-10 - C50.912, L98.499, Z90.12, N65.1, N65.0, T66.xxxS, N64.4 07/03/18 7775 <Electronically signed by Jose Robertson MD> Date Jose Robertson MD CC: Thomas Medellin MD; Kaden Robles MD; Jose Robertson MD; Owen Edouard MD; Albert Gomez MD; Devon Xiong DO; [facility] Signed DISCHARGE INSTRUCTION Observed: 06/26/2018 Status: F Source: [place] 5:37 PM [facility] REPOSITORY [facility] Medical Records Department [address] [place] [address] Instructions for Home/Discharge Instructions 06/26/18 1720 MR#: [id number] Acct: [id number] Name: GAIL LACEY Rep #: [id number] : 1985 33 From: Jose Robertson MD PCP: Kaden Robles MD Status: ADM DOUGLAS - Discharge Diagnoses Current Active Problems: Current Active and Chronic Problems (Last Reviewed 06/13/18 @ 09:12 by Mile Healy) Speech disturbance (Acute) Transient global amnesia (Acute) You will use the following diet at home:: No restrictions, Other - encourage nutritional supplementation with protein to help the healing process. Discharge Activity: May not drive while taking narcotic pain medications., May Not Shower - until the drain is removed., - - keep head elevated. no heavy lifting. encourage range of motion left shoulder to minimize stiffness. May shower in (days): 10 - after the drain is removed in the office. May resume sexual activity in: 10-14 days Weight Bearing Status: Weight bearing as tolerated Lifting Restrictions: 20 lbs. Keep extremity elevated above heart level: Left Arm, - - elevate head. Call your doctor if your incision/area has: Continuous Slow Oozing, Sudden Increased Bleeding, Increased Pain/ Swelling, Increased Redness, Foul Smelling Discharge, Swelling at the incision site Call your doctor if you observe: Fever of 101 or Higher, Coldness, Increased Pain, Shortness of breath, Chest pain, Calf discomfort, Uncontrolled pain Suture Line Care: - - dry dressings daily. Change Dressing in (Days):: 1 - dry dressings daily. Cleanse incision/area with: - - may get incision wet in the shower after the drain is removed. Drain: Suction - nataly drain to bulb suction. empty and record output daily. Additional Instructions: The Phenergan script was thrown away and Zofran script was done to replace it. Allergies/Adverse Reactions: Allergies hydromorphone [From Dilaudid] Allergy (Severe, Verified 06/24/18 12:07) Laryngospasms morphine Allergy (Severe, Verified 06/24/18 12:07) chest tightening TAPE Adverse Reaction (Mild, Uncoded 06/24/18 12:07) Other Medications to take at Discharge Albuterol Aerosols [Ventolin Aerosols] 2.5 mg INHALATION Q2H PRN PRN vial.neb. 01/17/18 levothyroxine 150 mcg tablet 150 mcg PO DAILY@0600 #30 tab 01/27/18 Diazepam [Valium] 5 mg PO 4X/DAY PRN PRN #30 tab 06/26/18 Docusate Sodium [Colace] 100 mg PO BID #60 cap 06/26/18 Levothyroxine [Synthroid] 150 mcg PO DAILY@0600 tablet 06/26/18 Liothyronine Sodium [Cytomel] 5 mcg PO DAILY tablet 06/26/18 Ondansetron HCl [Zofran] 8 mg PO TID PRN PRN #30 tab 06/26/18 Oxycodone HCl/Acetaminophen [Percocet 5/325] 1 - 2 tab PO 4X/DAY PRN PRN 7 Days #60 tab 06/26/18 levoFLOXacin tablet [Levaquin tablet] 500 mg PO DAILY #14 tab 06/26/18 proMETHazine tablet [Phenergan tablet] 25 mg PO 4X/DAY PRN PRN #30 tab 06/26/18 The following prescriptions were given: Diazepam [Valium] 5 mg PO 4X/DAY PRN PRN #30 tab PRN Reason: Spasms levoFLOXacin tablet [Levaquin tablet] 500 mg PO DAILY #14 tab Ondansetron HCl [Zofran] 8 mg PO TID PRN PRN #30 tab PRN Reason: Nausea Oxycodone HCl/Acetaminophen [Percocet 5/325] 1 - 2 tab PO 4X/DAY PRN PRN 7 Days #60 tab PRN Reason: Pain proMETHazine tablet [Phenergan tablet] 25 mg PO 4X/DAY PRN PRN #30 tab PRN Reason: NAUSEA/VOMITING Docusate Sodium [Colace] 100 mg PO BID #60 cap Primary Care Physician: Kaden Robles MD [Primary Care Provider] - Test Results: Test results from this visit will be discussed in further detail at your follow-up appointment, if applicable. Please Follow Up With: Jose Robertson MD When: wednesday07/04/18 at [facility]. Proposed Discharge Date: 06/26/18 06/26/18 1737 <Electronically signed by Jose Robertson MD> Date Jose Robertson MD CC: Thomas Medellin MD; Kaden Robles MD; Owen Edouard MD; Albert Gomez MD; Devon Xiong DO; [facility] CONSULTATION Observed: 06/25/2018 Status: F Source: [place] 12:09 PM [facility] REPOSITORY [facility] Medical Records Department [address] [place] [address] Consultation 06/25/18 1150 MR#: [id number] Acct: [id number] Name: GAIL LACEY Rep #: [id number] : 1985 33 From: Albert Gomez MD PCP: Kaden Robles MD Status: REG SD Y Location: ICU ICU05-1 Problem List (1) Transient global amnesia Status: Acute (2) Left ovarian cyst Status: Acute Comment: ca125. repeat ultrasound ordered (3) Encounter for preconception consultation Status: Acute (4) Anemia Status: Chronic (5) GERD (gastroesophageal reflux disease) Status: Acute Qualifiers: Esophagitis presence: without esophagitis Qualified Code(s): K21.9 - Gastro-esophageal reflux disease without esophagitis (6) Family history of colon cancer in father Status: Acute (7) Open wound of left breast with complication Status: Acute (8) Acquired absence of left breast and nipple Status: Acute (9) Wound infection Status: Acute (10) Intermittent epigastric abdominal pain Status: Chronic (11) Late effect of radiation Status: Acute Comment: late effect radiation left breast (12) Medication management Status: Acute (13) Pain of left breast Status: Acute (14) Other specified complications of surgical and medical care, not elsewhere classified, subsequent encounter Status: Acute Comment: post-lumpectomy seroma ulcer left lateral breast (15) Disproportion of reconstructed breast Status: Acute Comment: left breast (16) Deformity of reconstructed breast Status: Acute Comment: lateral deformity reconstructed left breast (17) Personal history of malignant neoplasm of breast Status: Chronic (18) Cancer of left female breast Status: Chronic Qualifiers: Estrogen receptor status: positive (19) Fatty liver Status: Chronic (20) STEVE (obstructive sleep apnea) Status: Chronic (21) Chronic back pain Status: Chronic Qualifiers: Back pain location: back pain in unspecified location Back pain laterality: unspecified Qualified Code(s): M54.9 - Dorsalgia, unspecified; G89.29 - Other chronic pain (22) Hypothyroidism Status: Chronic Qualifiers: Hypothyroidism type: unspecified Qualified Code(s): E03.9 - Hypothyroidism, unspecified (23) Narcolepsy Status: Chronic (24) Anxiety and depression Status: Chronic (25) Fever Status: Acute Qualifiers: Fever type: unspecified Qualified Code(s): R50.9 - Fever, unspecified (26) Febrile neutropenia Status: Acute Reason for Consult Date of Consultation: 06/25/18 Reason for Consultation: transient episode of expressive aphasia History of Present Illness: The patient is a 33 year old F with history of left breast cancer status post lumpectomy, then completion mastectomy followed by wound infection and debridement was admitted this time by Dr. Robertson for excision of excess mastectomy skin scar with contour deformity and excision of nonhealing radiation ulcer on 06/24/2018. Yesterday night, stroke alert was called and patient was noticed to have blank look, and mild to moderate aphasia. As per the 19 hospitalist, she had expressive global aphasia. Subsequently she had CT angiogram of head and neck which reported normal. Blood glucose was found normal. NIH stroke scale was done and first was found 1 due to mild to moderate aphasia but later on subsequently was 0 on multiple nursing assessment. MRI brain was done which did not show any evidence of infarct, hemorrhage or metastatic disease. On further history, she said she had this problem since her age of young adolescent after she had concussion injury and she has detailed workup as an outpatient including 24 hour video EEG monitoring but everything was found normal. She does not think she has a history of seizure. On her home medication, she is not on antiepileptic medication Past Medical History Past Medical History (Chronic Problems): Chronic Problems (Last Reviewed 06/13/18 @ 09:12 by Mile Healy) Anemia (Chronic) Intermittent epigastric abdominal pain (Chronic) Personal history of malignant neoplasm of breast (Chronic) Cancer of left female breast (Chronic) Fatty liver (Chronic) STEVE (obstructive sleep apnea) (Chronic) Chronic back pain (Chronic) Hypothyroidism (Chronic) Narcolepsy (Chronic) Anxiety and depression (Chronic) Medical History: Medical History (Last Reviewed 06/13/18 @ 09:12 by Mile Healy) Anxiety F41.9 Asthma J45.909 BLADDER/URINARY TRACT INFECTION Breast cancer C50.919 Carpal tunnel syndrome G56.00 Depression F32.9 Headache R51 Hives L50.9 Immunodeficiency D84.9 NEUROPATHY AFTER ARM SURGERY NON HEALING POST- LUMPECTOMY SEROMA ULCER LEFT BREAST LEFT LATERAL BREAST Neutropenia D70.9 Pneumonia J18.9 Polycystic ovary E28.2 Psychiatric disorder F99 Sleep apnea G47.30 Thyroid disease E07.9 Vitamin D deficiency E55.9 med port placement Allergies hydromorphone [From Dilaudid] Allergy (Severe, Verified 06/24/18 12:07) Laryngospasms morphine Allergy (Severe, Verified 06/24/18 12:07) chest tightening TAPE Adverse Reaction (Mild, Uncoded 06/24/18 12:07) Other Home Medications: Ambulatory Orders Medication Instructions Recorded Albuterol Aerosols [Ventolin 2.5 mg INHALATION Q2H PRN PRN 01/17/18 Aerosols] vial.neb. Silver/Hydrocolloid Dressing 1 ea TP .QDAILY #30 bandage 01/17/18 Surgical History: Surgical History (Last Reviewed 06/13/18 @ 09:12 by Mile Healy) H/O total mastectomy of left breast Z90.12 HOSPITAL FEBRILE NEUTROPENIA DISCHARGED 07/14/2017 History of lumpectomy Z98.890 History of partial mastectomy of left breast Onset Date: 03/2017 Z98.890, Z90.12 PORT PLACEMENT Onset Date: 04/2017 Plantar wart Onset Date: 2007 B07.0 SURGICAL PREPARATION LEFT LATERAL BREAST WITH INCISION AND DRAINAGE AND EXCISION NON HEALING SURGICAL LUMPECTOMY SEROMA ULCER WITH 9 CM COMPLEX SECONDARY WOUND CLOSURE 08/05/2017 [place] teeth extracted K08.499 Surgical History: - - [place] teeth, [place] Wart, Partial Mastectomy 04/06/17, Port Placement, left lateral breast with incision and drainage and excision nonhealing post-lumpectomy seroma ulcer with 9 cm complex secondary wound closure, recent Revision left breast reconstruction with excision painful infected lateral radiation lumpectomy scar contour deformity with completion mastectomy. Psychiatric History: Anxiety, Depression CRUCIBLE FURNACE TENDER History: No pertinent CRUCIBLE FURNACE TENDER history Smoking Status: Former smoker - *Family History Maternal Family History: Family History (Last Reviewed 06/13/18 @ 09:12 by Mile Healy) Mother Psychiatric disorder Thyroid disorder Father Hyperlipidemia Hypertension Father Heart disease Aunt Seizures Grandmother Cancer Colon cancer Grandfather Diabetes Heart disease History Items: - - Thyroid disease, psychiatric disorder. Paternal Family History: Family History (Last Reviewed 06/13/18 @ 09:12 by Mile Healy) Mother Psychiatric disorder Thyroid disorder Father Hyperlipidemia Hypertension Father Heart disease Aunt Seizures Grandmother Cancer Colon cancer Grandfather Diabetes Heart disease History Items: Heart Disease, Hypertension Review of Systems Constitutional: Denies: Chills, Fever, Weight Change HEENT: Denies: Head Aches, Sinus Congestion, Sinus Drainage Cardiovascular: Denies: Chest Pain, Palpitations Respiratory: Denies: Cough, Shortness of breath at rest, Sputum production Gastrointestinal: Denies: Abdominal Pain, Nausea, Vomiting Genitourinary: Denies: Dysuria Musculoskeletal: Denies: Joint Pain, Joint Tenderness Skin: Reports: Wounds - Surgical wound on left breast. Denies: Rash Neurological: Denies: Numbness, Tingling, Focal weakness Psychiatric: Denies: Anxiety, Depression, Homicidal Ideations, Suicidal Ideations Hematologic/ Lymphatic: Denies: Easy Bruising, Easy Bleeding Patient Problems: Active and Suspected Problems (Last Reviewed 06/13/18 @ 09:12 by Mile Healy) Transient global amnesia (Acute) - Physical Exam General: Alert, Oriented x3, Cooperative HEENT: Atraumatic, PERRLA, EOMI, Normocephalic Neck: Supple, No JVD, Negative Carotid Bruits Lungs: Clear to auscultation, Normal air movement Cardiovascular: Regular rate, Regular Rhythm, Normal S1, Normal S2, No murmurs Abdomen: Bowel Sounds Present, Soft, Non Tender Extremities: No edema, Capillary Refill Less than 3 Seconds Skin: Ulcer/ Wound - Left breast surgical wound status post excision of excess mastectomy skin SCAR. Dressing is dry., - Musculoskeletal: No Tenderness to Palpation of Joints or Extremities, Arthritic Changes Neurological: Cranial nerves II-XII grossly intact, Neuro grossly intact Psych/Mental Status: Normal Affect, Appropriate Vital Signs Temp Pulse Resp BP Pulse Ox 97.9 F 53 L 15 97/55 L 100 06/25/18 04:01 06/25/18 07:00 06/25/18 06:01 06/25/18 06:01 06/25/18 06:01 Oxygen Flow Rate (L/min) 2 Oxygen Delivery Method Room Air Weight: 217 lb 6.012 oz Body Mass Index (BMI) 32.5 Finger Stick Blood Glucose 145 Intake and Output for Last 24 Hours Intake Total 1700 / 1700 235.3 / 235.3 Output Total 765 / 765 Balance 1700 / 1700 -529.7 / -529.7 Microbiology Past 72 Hours 06/24/18 17:47 Wound Culture - Preliminary Tissue - Breast No growth-Final to follow Laboratory Tests Past 24 Hrs WBC RBC Hgb Hct MCV MCH MCHC RDW RDW Differential Plt Count MPV Sodium 142 Potassium 4.4 POC Glucose POC Glucose 145 H Assessment/Plan All Active Problems (Last Reviewed 06/13/18 @ 09:12 by Mile Healy) Transient global amnesia (Acute) Left ovarian cyst (Acute) Encounter for preconception consultation (Acute) GERD (gastroesophageal reflux disease) (Acute) Family history of colon cancer in father (Acute) Open wound of left breast with complication (Acute) Acquired absence of left breast and nipple (Acute) Wound infection (Acute) Late effect of radiation (Acute) Medication management (Acute) Pain of left breast (Acute) Other specified complications of surgical and medical care, not elsewhere classified, subsequent encounter (Acute) Disproportion of reconstructed breast (Acute) Deformity of reconstructed breast (Acute) Drug induced neutropenia (Resolved) Pancytopenia (Resolved) Fever (Acute) Febrile neutropenia (Acute) The patient is a 33 year old F with history of left breast cancer status post lumpectomy, then completion mastectomy followed by wound infection and debridement was admitted this time by Dr. Robertson for excision of excess mastectomy skin scar with contour deformity and excision of nonhealing radiation ulcer on 06/24/2018. Yesterday night, stroke alert was called and patient was noticed to have blank look, and mild to moderate aphasia. As per the 19 hospitalist, she had expressive global aphasia. Subsequently she had CT angiogram of head and neck which reported normal. Blood glucose was found normal. NIH stroke scale was done and first was found 1 due to mild to moderate aphasia but later on subsequently was 0 on multiple nursing assessment. MRI brain was done which did not show any evidence of infarct, hemorrhage or metastatic disease. On further history, she said she had this problem since her age of young adolescent after she had concussion injury and she has detailed workup as an outpatient including 24 hour video EEG monitoring but everything was found normal. She does not think she has a history of seizure. On her home medication, she is not on antiepileptic medication 1. Chronic transient global aphasia: This was a transient episode and she has since an early adolescent age after concussion. CT and MRI imaging test was normal as mentioned above. Discontinue NIH stroke scale. Consult neurology for further opinion regarding the differential diagnosis of the transient episode or need of outpatient epilepsy workup 2. Left breast cancer status post mastectomy, radiotherapy, radiotherapy with radiation scar SKIN ulcer and scar tissue status post excision: Patient is on Levaquin. Continue control. 3. Hypothyroidism, obstructive sleep apnea and mood disorder with depression and anxiety: Continue her home medication. On levothyroxine. 4. DVT prophylaxis: On Lovenox. Code Visit Inpatient E AND M: 28798 Init Hosp L2 06/25/18 1209 <Electronically signed by Albert Gomez MD> Date Albert Gomez MD Cosigner Signature (if applicable): Date CC: Kaden Robles MD; Jose Robertson MD; Albert Gomez MD Signed CBC-COMPLETE BLOOD CNT Collected: 06/25/2018 Status: F Source: [place] NO DIFF 4:20 AM [facility] REPOSITORY TYPE CODE TESTS RESULT OUT OF RANGE REFERENCE UNITS LAB L100.1000 4.4-11.0 K/mm3 Normal WBC 7.7 LAB L100.1200 4.2-5.4 M/mm3 Low RBC 3.35 LAB L100.1300 12.0-15.0 g/dl Low HGB 10.3 LAB L100.1400 37-47 % Low HCT 30.1 LAB L100.1500 81-99 fL Normal MCV 89.9 LAB L100.1600 27.0-32.0 pg Normal MCH 30.7 LAB L100.1700 32-36 g/gl Normal MCHC 34.2 LAB L100.1810 11.6-14.6 % Normal RDW CV 13.3 LAB L100.1820 35.1-43.9 fl Normal RDW SD 42.6 LAB L100.1900 150-450 K/mm3 Low PLT 149 LAB L100.2000 6.2-12.0 fl Normal MPV 8.1 Performed By: #### L100.0500, L500.2500, L500.4100, L506.0500 #### [facility] [address] [place], [address] BASIC METABOLIC Collected: 06/25/2018 Status: F Source: [place] PROFILE (BMP) 4:20 AM [facility] REPOSITORY TYPE CODE TESTS RESULT OUT OF RANGE REFERENCE UNITS LAB L501.0100 74-106 mg/dL High GLU 131 Result Comment: Fasting Glucose result greater than or equal to 126 mg/dL suggests DIABETES MELLITUS per A.D.A. criteria. Please note revised GLUCOSE reference range effective 2017. LAB L501.1000 7-18 mg/dL Normal BUN 15 LAB L501.1100 0.55-1.02 mg/dL Normal CREAT,SERUM 0.98 Result Comment: The validity of the calculated GFR AND GFRAA in patients over 70 years has not been determined. Clinical correlation is essential. LAB L501.1110 >60 mL/min Normal EST GFR 69 Result Comment: Non- GFR Calc LAB L501.1115 >60 mL/min Normal EST GFR - AA 84 Result Comment: GFR Calc LAB L501.1255 ml/min Normal Estimated CRCL 81.60 LAB L501.1300 10-20 RATIO Normal BUN/CRE 15.3 LAB L501.2200 8.5-10 mg/dL Low .1 CA 8.1 LAB L501.5300 136-14 mmol/L Normal 5 NA 142 LAB L501.5600 3.5-5. mmol/L Normal 1 K 4.4 LAB L501.5900 98-107 mmol/L High CL 109 LAB L501.6100 21.0-3 mmol/L Normal 2.0 CO2 26.0 LAB L501.6200 5-15 Normal GAP 7 Performed By: #### L100.0500, L500.2500, L500.4100, L506.0500 #### [facility] [address] [place], [address] LIPID PROFILE Collected: 06/25/2018 Status: F Source: [place] 4:20 AM [facility] REPOSITORY TYPE CODE TESTS RESULT OUT OF RANGE REFERENCE UNITS LAB L501.4900 200 mg/dL Normal CHOL 123 Result Comment: <200 mg/dL Desirable 200-240 mg/dL Borderline >240 mg/dL High Risk LAB L501.5000 mg/dL Normal TRIG 82 Result Comment: The drugs N-Acetylcysteine and Metamizole may falsely depress this assay. Serum Triglycerides Reference Interval Normal <150 mg/dL Borderline high 150 - 199 mg/dL High 200 - 499 mg/dL Very High > or = 500 mg/dL LAB L501.6400 mg/dL Normal HDL 52 Result Comment: The drugs N-Acetylcysteine and Metamizole may falsely depress this assay. Reference Range HDL <40 mg/dL Low HDL Cholesterol HDL >or= 60 mg/dL High HDL Cholesterol LAB L501.6500 0-130 mg/dL Normal LDL 55 LAB L501.6600 5-40 mg/dL Normal VLDL 16 Performed By: #### L100.0500, L500.2500, L500.4100, L506.0500 #### [facility] [address] [place], [address] PREALBUMIN Collected: 06/25/2018 Status: F Source: [place] 4:20 AM [facility] REPOSITORY TYPE CODE TESTS RESULT OUT OF RANGE REFERENCE UNITS LAB L506.0500 20.0-40.0 mg/dL Normal PREALBUMIN 21.1 Performed By: #### L100.0500, L500.2500, L500.4100, L506.0500 #### [facility] [address] [place], [address] TROPONIN-I Collected: 06/24/2018 Status: F Source: [place] 10:45 PM [facility] REPOSITORY TYPE CODE TESTS RESULT OUT OF RANGE REFERENCE UNITS LAB L501.4010 <0.045 ng/mL Normal < 0.015 TROPONIN-I Result Comment: TROPONIN-I EXPECTED VALUES <0.045 Negative 0.045 - 0.590 Consistent with Cardiac Damage > OR = 0.600 Critical Value Not every elevated troponin is indicative of NH. These values should be used with clinical judgement in examining the patient's clinical picture for diagnosis. To establish a diagnosis of NH versus myocardial injury, there must be a demonstrated rise and/or fall in the troponin values, in addition to ischemic symptoms, EKG changes, new regional wall motion abnormality, and/or angiographical evidence. PLEASE NOTE: REFERENCE RANGES EDITED 18 Performed By: #### L501.4010 #### [facility] [address] [place] [address], [address] BRAIN W/WO CONTRAST Observed: 06/24/2018 Status: F Source: [place] 10:17 PM [facility] REPOSITORY [facility] Imaging Services [address] [place] [address] Brain W/WO Contrast MR#: [id number] Acct: [id number] Name: GAIL LACEY Rep #: [id number] : 1985 F 33 From: Mendel Feliciano MD PCP: Kaden Robles MD Status: [facility] Study: Brain W/WO Contrast Date of Exam: 06/24/18 Exam# [id number] Ordering Dr: Varinder Taylor MD STUDY: MRI BRAIN WITH AND WITHOUT CONTRAST REASON FOR EXAM: Female, 33 years old. Aphasia and history of breast cancer TECHNIQUE: Standardized multiplanar fat and water weighted pulse sequences were obtained. 10 ml of Gadavist contrast material was administered intravenously for the contrast portion of the examination. COMPARISON: 10/06/2017 FINDINGS: Normal size of the ventricles and extra-axial spaces for the patient's age. Normal white matter tracts of the supratentorial brain. Normal bilateral basal ganglia. Normal thalami. There is no extra-axial fluid accumulation. Normal flow voids within the major intracranial circulation suggesting patency by spin echo criteria. Normal venous enhancement. There is no enhancing intra-axial or extra-axial abnormality. Normal sella turcica, pituitary gland, infundibular stalk, optic chiasm and hypothalamus. Normal tectal plate and pineal gland. Normal midbrain, rosalio and medulla. Normal cerebellum. Normal basal cisterns. Normal bilateral temporal bones. Normal bilateral internal auditory canals. No demonstrated orbital abnormality, within the constraints of a routine brain study. Normal visualized paranasal sinuses. Normal calvarium and skull base. Normal visualized soft tissue structures. Normal visualized upper cervical spine. MRI/Brain W/WO Contrast IMPRESSION: No evidence of infarct, hemorrhage, or metastatic disease. Electronically Signed: Mendel Feliciano MD at 1:00 EDT Tel , Service support , CC: Kaden Robles MD; Varinder Taylor MD Bridge Painter Helper: Signed CTA HEAD W/WO Observed: 06/24/2018 Status: F Source: [place] CONTR[place] 9:36 PM [facility] REPOSITORY [facility] Imaging Services [facility] [place] [place] [address] CTA Head W/WO Contrast MR#: [id number] Acct: [id number] Name: GAIL LACEY Rep #: [id number] : 1985 F 33 From: Kenneth Cota MD PCP: Kaden Robles MD Status: [facility] Study: CTA Head W/WO Contrast Date of Exam: 06/24/18 Exam# [id number] Ordering Dr: Varinder Taylor MD STUDY: CTA OF THE BRAIN REASON FOR EXAM: Female, 33 years old. CVA RADIATION DOSAGE (If Supplied By Facility): CTDIvol = ( 24.50 ) mGy, DLP = ( 1446.97 ) mGycm TECHNIQUE: CT angiography was performed with a multi-detector CT scanner. Data acquisition was obtained from the skull base through the vertex following intravenous administration of 75 ml of Isovue-370. MIP images were reconstructed from the axial data set. Post-processing of the angiographic images was performed, with multiplanar reformation and 3D reconstruction. Individualized dose optimization techniques were used for this CT. COMPARISON: January 31, 2018 FINDINGS: Normal bilateral petrous carotid arteries. Normal right cavernous carotid artery with a normal supraclinoid bifurcation. Normal left cavernous carotid artery with a normal supraclinoid bifurcation. Normal right A1 segments of the anterior cerebral artery. Normal left A1 segments of the anterior cerebral artery. Normal intact anterior communicating artery (ACOM). Normal bilateral A2 segments of the anterior cerebral arteries. Normal right M1 and M2 segments of the middle cerebral arteries, with a normal M1 bifurcation. Normal left M1 and M2 segments of the middle cerebral arteries, with a normal M1 bifurcation. There is a persistent origin of the right posterior cerebral artery with absence of the posterior communicating artery (PCOM). There is a persistent origin of the left posterior cerebral artery with absence of the posterior communicating artery (PCOM). Normal bilateral vertebral arteries. Normal basilar artery with a normal basilar bifurcation. The visualized bilateral superior cerebellar (SCA) arteries are normal. Normal bilateral P1, P2 and visualized P3 segments of the posterior cerebral arteries. There is no demonstrated aneurysm of the [place] of [place]. There is no demonstrated abnormality of the visualized brain. CT/CTA Head W/WO Contrast IMPRESSION: Normal [place] of [place] without a demonstrated aneurysm or hemodynamically significant stenosis. Case discussed with Dr. Smart at 10:15 PM N.B. : The above information has been verbally conveyed by Kenneth Cota MD to Varinder Taylor, Referring Physician, on 06/24/2018 22:15:24 (ET). Electronically Signed: Kenneth Cota MD at 22:15 EDT , Service support , CC: Kaden Robles MD; Varinder Taylor MD Bridge Painter Helper: Signed CTA NECK W/WO Observed: 06/24/2018 Status: F Source: [place] 9:36 PM [facility] REPOSITORY [facility] Imaging Services [address] [place] [address] CTA Neck W/WO Contrast MR#: [id number] Acct: [id number] Name: GAIL LACEY Rep #: [id number] : 1985 F 33 From: Kenneth Cota MD PCP: Kaden Robles MD Status: [facility] Study: CTA Neck W/WO Contrast Date of Exam: 06/24/18 Exam# [id number] Ordering Dr: Varinder Taylor MD STUDY: CTA NECK WITH CONTRAST REASON FOR EXAM: Female, 33 years old. CVA RADIATION DOSAGE (If Supplied By Facility): CTDIvol = ( 24.50 ) mGy, DLP = ( 1446.97 ) mGycm TECHNIQUE: CT angiography with multi-detector data acquisition was performed from the aortic arch to the skull base following intravenous administration of 75ML ml of Isovue 370 contrast. MIP images were reconstructed from the axial data set. Post-processing of the angiographic images was performed, with multiplanar reformation and 3D reconstruction. Individualized dose optimization techniques were used for this CT. COMPARISON: None. FINDINGS: AORTIC ARCH: Normal visualized aortic arch. Normal origins of the brachiocephalic, left common carotid, and left subclavian arteries. RIGHT CAROTID ARTERIES: Normal right common carotid artery (CCA). Normal right common carotid bulb. Normal origin of the right internal carotid (ICA) artery without a hemodynamically significant stenosis. Normal visualized cervical portion of the right internal carotid artery. Normal origin of the right external carotid artery (ECA). LEFT CAROTID ARTERIES: Normal left common carotid artery (CCA). Normal left common carotid bulb. Normal origin of the left internal carotid (ICA) artery without a hemodynamically significant stenosis. Normal visualized cervical portion of the left internal carotid artery. Normal origin of the left external carotid artery (ECA). VERTEBRAL ARTERIES: Normal bilateral vertebral arteries. CT/CTA Neck W/WO Contrast IMPRESSION: Normal bilateral cervical carotid and vertebral arteries. N.B. : The above information has been verbally conveyed by Kenneth Cota MD to Varinder Taylor, Referring Physician, on 06/24/2018 22:19:07 (ET). 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 [address] Observed: 06/24/2018 Status: F Source: [place] CULTURE, DEEP WOUND 5:47 PM [facility] REPOSITORY Order Date: 05/19/17 Comments: LEFT BREAST TISSUE DEEP WOUND/FUNGAL Gram Stain Gram Stain No White Blood Cells No organisms seen Wound Culture GROWTH IN BROTH MEDIA ONLY. ORGANISM 1: Staphylococcus aureus Amount Growth Growth Staphylococcus aureus: REACTION Benzylpenicillin NF >=0.5 R Cefoxitin *NF - Clindamycin $$ <=0.25 S Inducable Clindamycin Resistan - Erythromycin $ <=0.25 S Gentamicin $ <=0.5 S Levofloxacin $ 0.25 S Linezolid $$$$ 2 S Moxifloxicin *NF <=0.25 S Oxacillin NF 0.5 S Tigecycline $$$$ <=0.12 S Rifampin $$ <=0.5 S Tetracycline NF <=1 S Trimethoprim/Sulfametho $ <=10 S Vancomycin $ <=0.5 S (NF) indicates non-formulary drug at [facility]. Approval by Infectious Disease Specialist required before non-formulary drugs may be ordered and/or dispensed. * CLSI guidelines does not recommend testing of cephalosporins. This interpretation is deduced from Beta-lactam/penicillin results. Cult, Anaerobic Studies have confirmed that Anaerobic Gram Positive Cocci are routinely susceptible to: Penicillin/Ampicillin, Ampicillin/Sulbactam, Piperacillin/Tazobactam, Cefoxatin, Ertapenem, Imipenem, Meropenem and Metronidazole and vary in resistance to: Clindamycin and Moxifloxacin. ORGANISM 1: Anaerobic cocci Performed By: #### M100.1500, M600.1900 #### [facility] [address] [place], [address] Observed: 06/24/2018 Status: F Source: [place]IEIR[place] W/ 5:47 PM [facility] [id number] REPOSITORY Comments: LEFT BREAST TISSUE FOR DEEP WOUND/FUNGAL Is this test to exclude patient from TB Isolation? N Josefina,[id number] TESTING PERFORMED AT [facility]. ORIGINAL REPORT ON FILE IN LAB CONTAINS ADDITIONAL TEST SITE INFORMATION. CUF No yeast or mold isolated after [address] TESTING PERFORMED AT [facility]. ORIGINAL REPORT ON FILE IN LAB CONTAINS ADDITIONAL TEST SITE INFORMATION. Fungus Stain No yeast or mold observed. Performed By: #### M100.1500, M600.1900 #### [facility] [address] [place], [address] BREAST MASTECTOMY Observed: 06/24/2018 Status: F Source: [place] (CHOOSE SIDE 1:15 PM [facility] REPOSITORY Patient: GAIL LACEY : 1985 (33/F) Acct Num: [id number] Phys: Jose Robertson MD Unit Num: [id number] Loc: MS2 [id number] Specimen: [id number] Received: 06/27/18 - 1016 Spec Type: BREAST TISSUES TISSUES: Left breast, NOS GROSS DESCRIPTION Received in fixative is one container labeled with the patient's name and designated left breast nonhealing radiation ulcer and excess mastectomy skin contour deformity tissue. The specimen consists of multiple pieces of skin and yellow adipose tissue that in aggregate measure 18 x 10 x 5 cm. The deep margin also shows focal area of skeletal muscle tissue. No mass lesion is identified. Knot Bumper sections are submitted in six cassettes. / RO:sharon 06/27/18 TC:5 CPT: 28243 HEADER OPERATION: Reconstructed left breast with excision painful nonhealing radiation ulcer PRE-OP DIAGNOSIS: Left breast cancer; nonhealing painful radiation ulcer, left breast mastectomy; disproportion reconstructed left breast; deformity reconstructed left breast with excess painful mastectomy skin scar, contour deformity with associated radiation ulcer; post-mastectomy painful indentation scar contour deformity, left lateral breast; status post lumpectomy left breast with chemotherapy and radiation therapy; status post completion mastectomy left breast; late effect radiation left breast TISSUE SUBMITTED: Left breast nonhealing radiation ulcer and excess mastectomy skin contour deformity tissue MICROSCOPIC DESCRIPTION Slides are reviewed. MICROSCOPIC DIAGNOSIS Left breast nonhealing radiation ulcer and excess mastectomy skin contour deformity tissue: Pieces of skin with underlying adipose tissue and skeletal muscle tissue with focal fat necrosis, chronic inflammation and foreign body giant cell reaction. SJ:sharon 06/28/18 Signed Zaheer Jain 06/28/18 <signature on file> Performed By: #### PBREAST #### [facility] [address] [place], [address] ,URINE Collected: 06/24/2018 Status: F Source: [place] 11:49 AM [facility] REPOSITORY TYPE CODE TESTS RESULT OUT OF REFERENCE UNITS RANGE LAB L400.8000 Negative Normal HCGUQUAL Negative Result Comment: Very dilute urine specimens, as indicated by a low specific gravity, may not contain treasury representative levels of hCG. If is still suspected, a first morning urine specimen should be collected 48 hours later and tested. Performed By: #### L400.7600 #### [facility] [address] [place], [address] HISTORY AND PHYSICAL Observed: 06/21/2018 Status: F Source: [place] EXAM 10:14 PM [facility] REPOSITORY [facility] Medical Records Department [address] [place] [address] History and Physical 06/13/18 2353 MR#: [id number] Acct: [id number] Name: GAIL LACEY Jordan Rep #: [id number] : 1985 33 From: Jose Robertson MD PCP: Kaden Robles MD Status: PRE [facility] Y Location: [facility] History and Physical Date of Admission: 06/14/18 HISTORY OF PRESENT ILLNESS 33 year old woman presents with left breast cancer that necessitated initially a lumpectomy and then later on a completion mastectomy. She had chemotherapy and radiation therapy postop. The completion mastectomy was not closed because it had already been radiated. Healing was slow with Silver dressing changes and the VAC and antibiotics. The wound almost healed but there remained a smaller residual wound. [facility]. The wound had been improving with decreased size, but she was having persistent pain in her left mastectomy wound. She has just started HBO treatments and will continue them after her surgery. At the time of her completion mastectomy, wound cultures were obtained. They showed Acinetobacter radioresistens and MRSMirian. She was treated with IV Ceftriaxone and tolerated the antibiotics. She presents for further evaluation and treatment. 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 Pneumonia STEVE Chronic back pain Nonhealing post-lumpectomy seroma ulcer left lateral breast Chemotherapy induced neutropenia PAST SURGICAL HISTORY: [place] teeth 2003 all 4 [place] 2008 Partial Mastectomy 04/06/17 - getting chemotherapy and will follow with radiation therapy Port Placement 05/03 Hospital-Febrile Neutropenia discharged 07/14/17 Occasional psychiatric hospitalized [id number] surgical preparation left lateral breast with incision and drainage and excision nonhealing post-lumpectomy seroma ulcer with 9 cm complex secondary wound closure - 08/05/17 Revision left breast reconstruction with excision painful infected lateral radiation lumpectomy scar contour deformity with completion mastectomy - 01/04/18 MEDICATIONS Ventolin. Levothyroxine. Liothyronine. ALLERGIES Dilaudid. Morphine. Tape. FAMILY HISTORY: Mother (biol.) - Has Family History of Depression Mother (biol.) - Has Family History of Thyroid Disorder Mother (biol.) - Has Family History of Psychiatric Care Father (biol.) - Has Family History of Hypertension Father (biol.) - Has Family History of High Cholesterol Aunt - Has Family History of Seizures PGM - Has Family History of Other Cancer PGF - Has Family History of Diabetes PGF - Has Family History of Heart Disease PGM - Has Family History of Colon Cancer SOCIAL HISTORY: Drug Use - no Patient is a former smoker. Patient does not drink alcohol. REVIEW OF SYSTEMS General - Denies fever. Has some weight loss and fatigue. Eyes -Denies: Pain HEENT - Denies: Nasal Congestion, Sore Throat Cardiovascular - Denies Chest Pain. Has fatigue. Denies shortness of breath with exertion. Respiratory - patient is a former smoker.. Denies: Cough, Shortness of Breath Gastrointestinal - Has Constipation, Diarrhea. Denies: Nausea, Vomiting Genitourinary - Denies: Frequency, Hematuria Musculoskeletal - Reports: Back Pain, - - has left lateral rib pain. Denies: Hand Pain, Leg Pain, Muscle pain, Neck Pain Skin - Has lumpectomy scar left lateral breast with pain. Pain also radiates laterally onto left lateral rib pain and axillary rib pain. Neuro - Has Headaches Psych - Has Anxiety, Depression Endocrine - Denies Polydipsia, Polyuria Hematologic - Denies Easy Bruising, Hx of blood clot PHYSICAL EXAMINATION General - Alert and oriented. Her bra size is D-DD. HEENT - PERRLA, EOMI Neck - Supple and nontender. No cervical adenopathy. Chest wall - There is tenderness to palpation in the left lateral chest wall over the ribs and extending onto the axillary area. No fluctuance or purulent drainage. Breasts - There is a left lateral breast scar from lumpectomy in 04/03. There is an indentation deformity. Very tender to palpation. The left breast is tender to palpation mostly laterally. No redness. Increased swelling and edema especially around the nipple areolar complex area. No fluctuance. The right breast is a little larger. Slight Stage II ptosis. Lungs - Clear to auscultation Heart - Regular rate, Regular Rhythm Abdomen - Soft, Non-Distended Extremities - No clubbing, No cyanosis, No edema, Peripheral Pulses Normal Lymphatic - no axillary adenopathy. Neuro - Cranial nerves II-XII grossly intact Psych - Normal Affect, Appropriate ASSESSMENT 1. Left breast cancer. 2. 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 3. Disproportion reconstructed left breast. 4. Deformity reconstructed left breast with excess painful mastectomy skin scar contour deformity with associated radiation ulcer. 5. Post-mastectomy painful indentation scar contour deformity left lateral breast. 6. s/p lumpectomy left breast with chemotherapy and radiation therapy. 7. s/p completion mastectomy left breast. 8. Late effect radiation left breast. 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 She has persistent pain in her nonhealing radiation ulcer with associated painful indentation scar contour deformity and excess painful mastectomy skin scar contour deformity. To improve her painful symptomatology, it was recommended to the patient to proceed with revision reconstructed left breast with excision painful nonhealing radiation ulcer and painful indentation scar contour deformity and excess painful mastectomy skin scar contour deformity. Will send tissue to Pathology for analysis to rule out carcinoma. Will also send tissue to Microbiology for culture. A positive culture will necessitate antibiotic therapy. To minimize seroma formation postop, I will place a drain. I will also spray Pola absorbable hemostat into the ulcer to minimize seroma formation. After surgery, she will continue her HBO treatments. She will be maintained on antibiotics at least until the drains are removed. Will wear a compression LONA wrap on her chest wall to minimize seroma as well. Surgery will be done under general anesthesia with a surgical observation overnight stay in the hospital. Patient was informed of the risks and complications of the procedure including alternatives to surgery. These were discussed with the patient personally. Patient voices understanding and wishes to proceed. 06/21/18 2214 <Electronically signed by Jose Robertson MD> Date Jose Robertson MD Cosigner Signature: Date (if applicable) CC: Kaden Robles MD; Jose Robertson MD; Owen Edouard MD; Devon Xiong DO; [facility] Signed ONCOLOGY VISIT REPORT Observed: 06/13/2018 Status: F Source: [place] 9:47 AM [facility] REPOSITORY [facility] [address] [place] [address] OFFICE VISIT Date of Service: 06/13/18 09 MR#: [id number] Acct: [id number] Name: GAIL LACEY Rep #: [id number] : 1985 From: Owen Edouard MD Age/Sex: 33/F Location: [facility] Status: Signed - Problem List (1) Cancer of left female breast Status: Chronic Qualifiers: Estrogen receptor status: positive (2) Anemia Status: Chronic - Date of Service Date of Service:: 06/13/18 - Chief Complaint Breast cancer - History of Present Illness Patient is a 32-year-old premenopausal female who presented with an abnormal left nipple discharge, February 2017 a diagnostic mammogram followed by an ultrasound showed an abnormality that was confirmed on biopsy on March 16 to represent an invasive ductal cancer. On April 06, 2017 the patient underwent a left partial mastectomy with sentinel lymph node biopsy with a final pathology showing an infiltrating ductal carcinoma measuring 1.2 cm in maximum diameter poorly differentiated, grade 3, ER negative, KS weak positive, Her- 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 Margins were negative for both invasive and noninvasive cancer. Patient started systemic adjuvant therapy under the care of in [facility] on May 18, 2017. She received her third cycle of treatment on July 02, 2017 with delays due to pancytopenia especially thrombocytopenia. Starting with her third cycle she required growth factor support with Leukine daily injections (as per her insurance authorization). During her infusions she experienced effusions related reactions including shortness of breath flushing back pain that required premedication with H1, H2, steroid medication and slowing down the infusion rate to several hours. She also experienced side effects of hair loss, abnormal taste, mouth sores, bony pains with Leukine. No fevers or infectious complications to date. Pretreatment cardiac evaluation was by echo that reportedly showed an normal LVEF of 60%. Pre-adjuvant chemotherapy evaluation also included a brain MRI due to history of headaches that showed no evidence of metastatic disease and abnormal liver functions that showed fatty liver. Reportedly patient was offered fertility preservation consultation prior to therapy but she declined. Her had vasectomies, pretreatment test was negative and she reports no menses Since May 2017. She reported that her wound healing was protracted. Patient was seen in initial consultation July 09, 2017 wishing to transfer care to [place] for proximity to residence. Treatment: - April 06, 2017 left partial mastectomy - [facility] X6 cycles -08/2017- (delays due to delayed wound healing, cytopenias and febrile neutropenia). - Herceptin maintenance 10/04/2017-05/23/2018 (Concluded 1Y) - Tamoxifen October-March 2018 then stopped (wishing to have more children if possible, disease is ER negative, KS weak positive) - Adjuvant radiation therapy; 4256 cGy of mixed 6, 10, and 15 MV photons in 16 fractions to the left breast with a 3D conformal technique consisting of MONEGASQUE, LPO, and MONTERO carmen with field and field to improve dose homogeneity. A sequential boost consisting of 1000 cGy of mixed 10 and 15 MV photon in 4 fractions was delivered to the lumpectomy bed with a 3D conformal technique consisting of MONEGASQUE and LPO carmen. This brought the total dose delivered to 5256 cGy in 20 fractions. Patient was treated in the prone position to limit dose to the heart and lungs. Date of First Treatment: 10/13/2017 Date of Last Treatment: 11/10/2017 - Completion mastectomy December 2017. - Past Medical/Social History Past Medical History Past Medical History: Anxiety,Asthma,Breast problem,Depression, Headaches,Immunodeficiency,Pneumonia,Sleep apnea ,Thyroid disease,Neutropenia,Psychiatric disorder,Vitamin D deficiency Other Past Medical History: fatty liver Cancer: Breast cancer Past Surgical History Surgical: Lumpectomy Other Surgical History: WISDOM TEETH 2003 X 4 LEFT BREAST LUMPECTOMY 04/06/17 DEBRIDEMENT OF LEFT BREAST WOUND POST OP 08/03 Family History Paternal Past Medical History: Heart disease,Hyperlipidemia Maternal Past Medical History: Thyroid disease,Psychiatric disorder Social History Smoking Status Former smoker Review of Systems Constitutional:: Denies: Fever, Sweats, Weight loss, Appetite change, Chills Cardiovascular:: Denies: Chest pain, Palpitations, Dyspnea on exertion, Orthopnea, PND, Shortness of breath Respiratory: Denies: Cough, Hemoptysis, Shortness of Breath, Wheezing Gastrointestinal:: Denies: Abdominal pain, Nausea, Vomiting, Diarrhea, Constipation, Hematochezia Genitourinary: Reports: - - Resumed menses. Denies: Dysuria, Hematuria, Flank pain Musculoskeletal:: Reports: Back pain - chronic unchanged. Denies: Myalgia, Arthralgia Skin: Denies: Rash, Skin Changes, Wounds Neurological:: Denies: Headache, Dizziness, Visual changes, Tinnitus, Hearing loss Psychiatric: Denies: Anxiety, Depression, Homicidal Ideations, Suicidal Ideations Comment: Breast wound still healing Vital Signs Height 5 ft 8 in Weight: 96.615 kg Weight in Pounds 213.0 lbs BMI 36.4 Pulse Ox 99 - Physical Exam General: Alert, Oriented x3, No apparent distress, - - ECOG 1 HEENT: Atraumatic, PERRLA, EOMI, Normocephalic Oropharynx:: Dry mucosa Neck:: Supple, Trachea midline, - - Port okay. Negative for: JVD, bilateral Cardiac:: Regular rate, Regular rhythm, Normal S1, Normal S2. Negative for: Murmur Lungs: Clear to auscultation, Excusion symmetrical. Negative for: Rhonchi, Wheezes Abdomen:: Bowel sounds x 4, Soft, Non-tender, Non-distended. Negative for: Hepatosplenomegaly Extremities:: Negative for: Cyanosis, Edema Neurological: Neuro grossly intact Skin:: Negative for: Lesions, Rash, Petechiae, Ecchymosis Psychiatric:: Appropriate affect, Euthymic Lymphatics:: Negative for: Cervical lymphadenopathy, Supraclavicular lymphadenopathy Assessment and Plan 33-year-old premenopausal female with 1- Invasive ductal cancer of the left breast stage I (T1c, N0, M0) high-grade G3, ER negative, KS weak positive, HER-2 positive. Patient is status post partial mastectomy with sentinel lymph node biopsy April 06, 2017, then completion mastectomy December 2017. She received adjuvant systemic chemotherapy with TCH May through August 2017 . Delays of treatment has occurred due to delayed wound healing, cytopenias and intercurrent illnesses (Febrile neutropenia, URTI, and dental infection) Received 1 year maintenance of Herceptin concluded May 2018. Received adjuvant radiation therapy September 2017 through October 2017. Received adjuvant Tamoxifen October through March 2018, well- tolerated then stopped (she wishes to have more children, disease is ER negative KS weakly positive and therefore the added benefit is small). She resumed menses after the conclusion of her chemotherapy. 2-anemia most likely related to chronic inflammatory disease (wound) +/- Fe deficieny , on PO Fe. Plan: 1. Surveillance, follow-up in 3 months. Annual screening mammogram to schedule for the right breast, left breast still was an open wound. 2. Monitoring of cardiac function with echo at 18 months from start of Herceptin therapy, scheduled September 2018 (patient request). 3. Open wound following drainage of a suspected infected seroma, follow-up was Dr. Robertson. 4. Pain issues related to wound deferred to Dr. Robertson discretion. Chronic back pain issues unrelated and to predate diagnosis of breast cancer deferred to PCP, and patient used to see an outside pain management advised to follow-up with. With the length of such treatment she is narcotics dependent and may require detox future especially prior to having more children. 5. From oncology view port can come out but patient prefers to keep in due to difficult IV access until complete healing from her breast surgeries. Impression and plan discussed with patient and . Medications: Prescriptions This Visit Medication Instructions Recorded Tamoxifen Citrate [Nolvadex] 20 mg PO DAILY 04/25/18 Primary Care Provider: Kaden Robles MD Referring Provider: 06/13/18 0947 <Electronically signed by Owen Edouard MD> Date Owen Edouard MD Cosigner Signature: Date (if applicable) CC: Kaden Robles MD CBC W/DIFF, AUTOMATED Collected: 06/13/2018 Status: F Source: [place] 8:40 AM [facility] REPOSITORY Order Comment: Reason for Laboratory Test OV TYPE CODE TESTS RESULT OUT OF RANGE REFERENCE UNITS LAB L100.1000 4.4-11.0 K/mm3 Normal WBC 4.4 LAB L100.1200 4.2-5.4 M/mm3 Low RBC 3.45 LAB L100.1300 12.0-15.0 g/dl Low HGB 10.4 LAB L100.1400 37-47 % Low HCT 30.3 LAB L100.1500 81-99 fL Normal MCV 87.8 LAB L100.1600 27.0-32.0 pg Normal MCH 30.1 LAB L100.1700 32-36 g/gl Normal MCHC 34.3 LAB L100.1810 11.6-14.6 % Normal RDW CV 12.8 LAB L100.1820 35.1-43.9 fl Normal RDW SD 39.0 LAB L100.1900 150-450 K/mm3 Low PLT 128 LAB L100.2000 6.2-12.0 fl Normal MPV 8.2 LAB L100.2100 47-70 % Normal NEUT% 67.0 LAB L100.2200 19-41 % Normal LY% 23.3 LAB L100.2300 0-10 % Normal MONO% 6.3 LAB L100.2400 0-5 % Normal EO% 2.7 LAB L100.2500 0-1 % Normal BASO% 0.5 LAB L100.2550 0.0-0.9 % Normal IM GRAN % 0.200 Result Comment: IG% - Immature Granulocytes (promyelocytes, myelocytes and metamyelocytes) > 1% indicates that a LEFT SHIFT is Present. LAB L100.2620 2.0-7.7 X10 3/uL Normal Absolute Neut 3.0 LAB L100.2720 0.83-4.51 X10 3/ul Normal Absolute Lymph 1.03 Performed By: #### L100.0100, L500.4050 #### [facility] [address] [place], [place], [address] COMPREHENSIVE METABOLIC Collected: 06/13/2018 Status: F Source: [facility] 8:40 AM [facility] REPOSITORY Order Comment: Reason for Laboratory Test OV TYPE CODE TESTS RESULT OUT OF RANGE REFERENCE UNITS LAB L501.0100 74-106 mg/dL Normal GLU 94 Result Comment: Please note revised GLUCOSE reference range effective 2017. LAB L501.1000 7-18 mg/dL Normal BUN 16 LAB L501.1100 0.55-1.02 mg/dL Normal CREAT,SERUM 0.91 Result Comment: The validity of the calculated GFR AND GFRAA in patients over 70 years has not been determined. Clinical correlation is essential. LAB L501.1110 >60 mL/min Normal EST GFR 75 Result Comment: Non- GFR Calc LAB L501.1115 >60 mL/min Normal EST GFR - AA 91 Result Comment: GFR Calc LAB L501.1255 ml/min Normal Estimated CRCL 87.87 LAB L501.1300 10-20 RATIO Normal BUN/CRE 17.6 LAB L501.1500 6.4-8. g/dL Normal 2 T PROT 6.5 LAB L501.1800 3.2-5. g/dL Normal 0 ALB 3.3 LAB L501.1950 2.2-4. g/dL Normal 2 GLOB 3.2 LAB L501.2000 0.9-2. RATIO Normal 4 A/G 1.0 LAB L501.2200 8.5-10 mg/dL Low .1 CA 8.4 LAB L501.4100 15-37 U/L Normal AST 20 LAB L501.4305 45-117 U/L Normal ALK P 91 LAB L501.4405 13-56 U/L Normal ALT 39 LAB L501.4600 0.20-1 mg/dL Normal .00 T BILI 0.40 LAB L501.5300 136-14 mmol/L Normal 5 NA 143 LAB L501.5600 3.5-5. mmol/L Normal 1 K 4.0 LAB L501.5900 98-107 mmol/L Normal CL 107 LAB L501.6100 21.0-3 mmol/L Normal 2.0 CO2 24.0 LAB L501.6200 5-15 Normal GAP 12 Performed By: #### L100.0100, L500.4050 #### [facility] [address] [place], [address] QUALITY CONTROL SYSTEMS MANAGER OFFICE VISIT Observed: 06/05/2018 Status: F Source: [place] REPORT 3:47 AM [facility] REPOSITORY [facility] [address] [place] [address] OFFICE VISIT Date of Service: 05/31/18 MR#: [id number] Acct: [id number] Name: JOANGAIL CLAROS Jordan Rep #: [id number] : 1985 Provider: Gini Alcala MD Age/Sex: 33/F Location: [facility] Status: Signed Intake Vital Signs05/31/18 Height 5 ft 8 in 05/31/18 Weight: 213 lb 4 oz 05/31/18 Body Mass Index (BMI) 32.4 05/31/18 Blood Pressure 110/70 Intake Visit Reasons: Followup cyst Chief Complaint: cyst follow up 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 Required: No Is patient in pain?: No Allergies hydromorphone [From Dilaudid] Allergy (Severe, Verified 05/31/18 09:41) Laryngospasms morphine Allergy (Severe, Verified 05/31/18 09:41) chest tightening TAPE Adverse Reaction (Mild, Uncoded 05/31/18 09:41) Other Medications Albuterol Aerosols [Ventolin Aerosols] 2.5 mg INHALATION Q2H PRN PRN vial.neb. 01/17/18 [Rx Confirmed 05/31/18] Silver/Hydrocolloid Dressing [Aquacel-Ag W-Hydrofiber Dress] 1 ea TP .QDAILY #30 bandage 01/17/18 [Rx Confirmed 05/31/18] levothyroxine 150 mcg tablet 150 mcg PO DAILY@0600 #30 tab 01/27/18 [Rx Confirmed 05/31/18] liothyronine 5 mcg tablet 5 mcg PO DAILY #30 tab 01/27/18 [Rx Confirmed 05/31/18] Trastuzumab [Herceptin] 150 mg IV QWEEK MDD every 3 weeks 04/18/18 [History Confirmed 05/31/18] Tamoxifen Citrate [Nolvadex] 20 mg PO DAILY 04/25/18 [History Confirmed 05/31/18] Is last menstrual period known: No Post menopausal: No Patient : No : No PFSH Medical History Anxiety (Acute) Asthma (Acute) BLADDER/URINARY TRACT INFECTION (Acute) Breast cancer (Acute) Carpal tunnel syndrome (Acute) Depression (Acute) Headache (Acute) Hives (Acute) Immunodeficiency (Acute) NEUROPATHY AFTER ARM SURGERY (Acute) NON HEALING POST- LUMPECTOMY SEROMA ULCER LEFT BREAST (Acute) Neutropenia (Acute) Pneumonia (Acute) Polycystic ovary (Acute) Psychiatric disorder (Acute) Sleep apnea (Acute) Thyroid disease (Acute) Vitamin D deficiency (Acute) med port placement (Acute) Surgical History H/O total mastectomy of left breast (Acute) HOSPITAL FEBRILE NEUTROPENIA DISCHARGED 07/14/2017 (Acute) History of lumpectomy (Acute) History of partial mastectomy of left breast (Acute 03/2017) PORT PLACEMENT (Acute 04/2017) Plantar wart (Acute 2007) SURGICAL PREPARATION LEFT LATERAL BREAST (Acute) [place] teeth extracted (Acute) Family History Mother Psychiatric disorder Thyroid disorder Father Hyperlipidemia Hypertension Father Heart disease Aunt Seizures Grandmother Cancer Colon cancer Grandfather Diabetes Heart disease Social History Smoking Status: Former smoker alcohol intake: never what type of physical activity do you participate in: none seatbelt use: always do you feel safe at home: Yes additional social history: SUN EXPOSURE: RARELY - [place]- [employer] HPI Followup cyst: Details: GAIL LACEY is a 33 year old who presents for follow up discussion of wanting to conceive. Her oncologist has not recommended it. She has also had a recent ovarian cyst burst which caused pain and she had an ovarian cyst on the left side. she hasn't had an ultrasound. She just received some medications that may limit time to conception due to wanting to avoid exposure to medications. Female Reproductive History Cycle Length: >35 Questions: Metorrhagia: No, Sexually active: Yes, Dyspareunia: No, PCB: No Pregancy History 3 Elective abortions Hx Para 3 Spontaneous abortions Past Pregnancies Del. 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 FOB t n h a n ROS Const Constitutional: Reports system reviewed and no additional complaints, except as docu ENT ENT: Reports dizziness : Reports system reviewed and no additional complaints, except as docu Neuro Neuro: Reports dizziness Exam Const General: cooperative, healthy appearing, well developed Nutritional Appearance: average body habitus GI Inspection: normal to inspection Palpation: soft, no hepatosplenomegaly, nontender Assessment AND Plan Problems 1. Left ovarian cyst N83.202 ca125. repeat ultrasound ordered 2. Encounter for preconception consultation Z31. Plan reviewed medications and recommend waiting at least 7 months to conception due to risks of exposure of the fetus to medications taken. discussed risks of breast cancer recurrence and i agree with oncologist her risk is increased if she conceives again. she states it is due to amish beliefs also she is wanting to have a vasectomy reversal. recommend checking ca125 and repeat pelvic ultrasound to evaluate cyst Orders Orders: Coding Level of Care Code Off vis,est,level 4 Diagnoses Left ovarian cyst N83.202 Encounter for preconception consultation Z31.69 06/05/18 0347 <Electronically signed by Gini Alcala MD> Date Gini Alcala MD Cosigner Signature: Date (if applicable) CC: ONCOLOGY VISIT REPORT Observed: 05/23/2018 Status: F Source: [place] 5:55 PM [facility] REPOSITORY [facility] [place] [address] OFFICE VISIT Date of Service: 05/23/18 1045 MR#: [id number] Acct: [id number] Name: GAIL LACEY Rep #: [id number] : 1985 From: Sean Kinsey MD Age/Sex: 33/F Location: [facility] Status: Signed Subjective - Date of Service Date of Service:: 05/23/18 - Chief Complaint Breast cancer - History of Present Illness Patient is a 33-year-old premenopausal female who presented with an abnormal left nipple discharge, February 2017 a diagnostic mammogram followed by an ultrasound showed an abnormality that was confirmed on biopsy on March 16 to represent an invasive ductal cancer. On April 06, 2017 the patient underwent a left partial mastectomy with sentinel lymph node biopsy with a final pathology showing an infiltrating ductal carcinoma measuring 1.2 cm in maximum diameter poorly differentiated, grade 3, ER negative, KS weak positive, Her- 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 Margins were negative for both invasive and noninvasive cancer. Patient started systemic adjuvant therapy under the care of in [facility] on May 18, 2017. She received her third cycle of treatment on July 02, 2017 with delays due to pancytopenia especially thrombocytopenia. Starting with her third cycle she required growth factor support with Leukine daily injections (as per her insurance authorization). During her infusions she experienced effusions related reactions including shortness of breath flushing back pain that required premedication with H1, H2, steroid medication and slowing down the infusion rate to several hours. She also experienced side effects of hair loss, abnormal taste, mouth sores, bony pains with Leukine. No fevers or infectious complications to date. Pretreatment cardiac evaluation was by echo that reportedly showed an normal LVEF of 60%. Pre-adjuvant chemotherapy evaluation also included a brain MRI due to history of headaches that showed no evidence of metastatic disease and abnormal liver functions that showed fatty liver. Reportedly patient was offered fertility preservation consultation prior to therapy but she declined. Her had vasectomies, pretreatment test was negative and she reports no menses Since May 2017. She reported that her wound healing was protracted. Patient was seen in initial consultation July 09, 2017 wishing to transfer care to [place] for proximity to residence. Treatment: - TCH X6 cycles -08/2017- (delays due to delayed wound healing, cytopenias and febrile neutropenia). - Herceptin maintenance 10/04/2017. - Tamoxifen October-March 2018 then stopped (wishing to have more children if possible, disease is ER negative, KS weak positive) Adjuvant radiation therapy; 4256 cGy of mixed 6, 10, and 15 MV photons in 16 fractions to the left breast with a 3D conformal technique consisting of MONEGASQUE, LPO, and MONTERO carmen with field and field to improve dose homogeneity. A sequential boost consisting of 1000 cGy of mixed 10 and 15 MV photon in 4 fractions was delivered to the lumpectomy bed with a 3D conformal technique consisting of MONEGASQUE and LPO carmen. This brought the total dose delivered to 5256 cGy in 20 fractions. Patient was treated in the prone position to limit dose to the heart and lungs. Date of First Treatment: 10/13/2017 Date of Last Treatment: 11/10/2017 Comes in for Herceptin therapy. - Past Medical/Social History Past Medical History Past Medical History: Anxiety,Asthma,Breast problem,Depression, Headaches,Immunodeficiency,Pneumonia,Sleep apnea ,Thyroid disease,Neutropenia,Psychiatric disorder,Vitamin D deficiency Other Past Medical History: fatty liver Cancer: Breast cancer Past Surgical History Surgical: Lumpectomy Other Surgical History: WISDOM TEETH 2003 X 4 LEFT BREAST LUMPECTOMY 04/06/17 DEBRIDEMENT OF LEFT BREAST WOUND POST OP 08/03 Family History Paternal Past Medical History: Heart disease,Hyperlipidemia Maternal Past Medical History: Thyroid disease,Psychiatric disorder Social History Smoking Status Former smoker Review of Systems Constitutional:: Denies: Fever, Sweats, Weight loss, Appetite change, Chills Cardiovascular:: Denies: Chest pain, Palpitations, Dyspnea on exertion, Orthopnea, PND, Shortness of breath Respiratory: Denies: Cough, Hemoptysis, Shortness of Breath, Wheezing Gastrointestinal:: Denies: Abdominal pain, Nausea, Vomiting, Diarrhea, Constipation, Hematochezia Genitourinary: Denies: Dysuria, Hematuria, 15, Flank pain Musculoskeletal:: Denies: Back pain, Myalgia, Arthralgia Skin: Denies: Rash, Skin Changes, Wounds Neurological:: Denies: Headache, Dizziness, Visual changes, Tinnitus, Hearing loss Psychiatric: Denies: Anxiety, Depression, Homicidal Ideations, Suicidal Ideations Vital Signs Height 5 ft 8 in Weight: 96.615 kg Weight in Pounds 213.0 lbs BMI 36.4 Pulse Ox 99 - Physical Exam General: Alert, Oriented x3, No apparent distress, - - Port R IC area. HEENT: Atraumatic, PERRLA, EOMI, Normocephalic Oropharynx:: Dry mucosa Neck:: Supple, Trachea midline. Negative for: JVD, bilateral Cardiac:: Regular rate, Regular rhythm, Normal S1, Normal S2. Negative for: Murmur Lungs: Clear to auscultation, Excusion symmetrical. Negative for: Rhonchi, Wheezes Abdomen:: Bowel sounds x 4, Soft, Non-tender, Non-distended. Negative for: Hepatosplenomegaly Extremities:: Negative for: Cyanosis, Edema Neurological: Neuro grossly intact Skin:: Negative for: Lesions, Rash, Petechiae, Ecchymosis Psychiatric:: Appropriate affect, Euthymic Lymphatics:: Negative for: Cervical lymphadenopathy, Supraclavicular lymphadenopathy, Axillary lymphadenopathy Assessment and Plan Left breast cancer stage I(pT1c N0 M0) ER negative, KS positive Her2 positive, adjuvant Herceptin therapy. Plan is to proceed with last Herceptin maintenance therapy. RTC 3 weeks with CBC/CMP. Medications: Prescriptions This Visit Medication Instructions Recorded Tamoxifen Citrate [Nolvadex] 20 mg PO DAILY 04/25/18 Primary Care Provider: Kaden Robles MD Referring Provider: Code Visit Office Visits / Consults: [id number] OV L5 Est 05/23/18 1755 <Electronically signed by Sean Kinsey MD> Date Sean Kinsey MD Cosigner Signature: Date (if applicable) CC: CT ABDOMEN/PELVIS Observed: 05/17/2018 Status: F Source: [place] W/CONTRAST 8:36 AM [facility] REPOSITORY ORIGINAL CT ABDOMEN/PELVIS W/CONTRAST CLINICAL STATEMENT: ABD PAIN, periumbilical abdominal pain. Mid to lower RIGHT abdominal pain for one day. History of breast cancer. COMPARISON: 08/05/2012 TECHNIQUE: Axial images were obtained from the lung bases through the pubic symphysis after the administration of IV and PO contrast. Coronal reformatted images were generated from the axial dataset. Th is exam was performed according to our departmental dose optimization program, and includes the following measures where applicable: automated exposure control, adjustment of the mAs and/or kVp accordin g to patient size and/or exam, and an iterative reconstruction algorithm. FINDINGS: The included lung bases are clear. Postoperative changes to the LEFT breast noted. The heart is not enlarged. The liver is diffusely decreased in attenuation consistent with fatty infiltration. An additional more hypodense area seen along the fissure for the falciform ligament may relate to a more focal area of profound fatty infiltration. The spleen, bilateral adrenal glands, gallbladder, pancreas, bilateral kidneys, bilateral ureters, nondistended bladder are unremarkable. The uterus appears physiologic. A hemorrhagic or collapsing follicle is noted in the RIGHT adnexa. A 6.5 cm fluid density lesion of the LEFT adnexa likely represents an ovarian cyst. There is a small am ount of free pelvic fluid which is considered physiologic in a patient of this age. There is no bowel dilatation. No inflammatory changes seen in the RIGHT lower quadrant. No free air. Small fat-containing umbilical hernia. The aorta is normal in caliber. No lymphadenopathy seen. No acute osseous findings. IMPRESSION: 1. A 6.5 cm LEFT adnexal cyst. Ultrasound follow-up in 6-12 weeks is recommended. 2. Fatty liver. 3. No inflammatory changes in the RIGHT lower quadrant. 4. Small fat-containing umbilical hernia. 5. Small amount of free pelvic fluid which is considered physiologic in a patient of this age. 6. Hemorrhagic or collapsing follicle in the RIGHT ovary. Interpreted By: Karen Morel MD Preliminary Report By: Karen Morel MD Electronically Signed By: Karen Morel MD Dictated Date: 05/17/2018 11:01:39 AM Prelim Date: 05/17/2018 11:01:39 AM Sign Date: 05/17/2018 11:11:47 AM CBC Collected: 05/17/2018 Status: F Source: [facility] 8:09 AM [facility] REPOSITORY TYPE CODE TESTS RESULT OUT OF REFERENCE UNITS RANGE LAB WBC(LOINC) 4.60-10.80 10 3/mcL WBC 4.80 LAB RBCCT(LOINC 4.20-5.40 10 6/mcL ) Low RBC 4.08 LAB HGB(LOINC) 12.0-16.0 G/dL Hgb 12.2 LAB HCT(LOINC) 37.0-47.0 % Low Hct 34.7 LAB MCV(LOINC) 80.0-94.0 fL MCV 85.1 LAB MCH(LOINC) 27.0-31.2 pg MCH 29.8 LAB MCHC(LOINC) 33.0-37.0 G/dL MCHC 35.0 LAB RDW(LOINC) 11.5-14.5 % High RDW 14.7 LAB PLT(LOINC) 130-400 10 3/mcL Platelet 156 LAB MPV(LOINC) 7.4-10.4 fL Low MPV 6.7 Performed By: #### GFR, CMP #### [place] [address] #### ANEU, ADIFF, CBC #### [address] [address] .AUTO DIFF Collected: 05/17/2018 Status: F Source: [facility] 8:09 AM [facility] REPOSITORY TYPE CODE TESTS RESULT OUT OF REFERENCE UNITS RANGE LAB DILIA(LOINC) 37.0-80.0 % Neutrophil % 64.9 LAB LYM(LOINC) 10.0-50.0 % Lymphocyte % 26.5 LAB MON(LOINC) 1.7-13.0 % Monocyte % 5.6 LAB EO(LOINC) 0.0-7.0 % Eosinophil % 2.4 LAB BAS(LOINC) 0.0-2.5 % Basophil % 0.6 LAB ABLYM(LOIN 0.77-3.85 10 3/mcL C) Lymphocyte, 1.30 Absolute LAB MIGUEL(LOINC 0.15-1.00 10 3/mcL ) Monocyte, 0.30 Absolute LAB AEOS(LOINC 0.00-0.40 10 3/mcL ) Eosinophil, 0.10 Absolute LAB ABAS(LOINC 0.00-0.19 10 3/mcL ) Basophil, 0.00 Absolute Performed By: #### GFR, CMP #### [place] [address] #### ANEU, ADIFF, CBC #### [place] [id number] [place], [place] [address] .NEUABS Collected: 05/17/2018 Status: F Source: [facility] 8:09 AM [facility] REPOSITORY TYPE CODE TESTS RESULT OUT OF REFERENCE UNITS RANGE LAB ANEU(LOINC) 2.85-6.16 10 3/mcL Neutrophil, 3.10 Absolute Performed By: #### GFR, CMP #### [place] [address] #### ANEU, ADIFF, CBC #### [place] [id number] [place], [place] [address] CMP Collected: 05/17/2018 Status: F Source: [facility] 8:09 AM [facility] REPOSITORY TYPE CODE TESTS RESULT OUT OF REFERENCE UNITS RANGE LAB GLU(LOINC) 70-105 mg/dL Glucose Level 98 LAB NA(LOINC) 136-145 mmol/L Sodium Level 139 LAB K(LOINC) 3.5-5.1 mmol/L Potassium Level 3.9 LAB CL(LOINC) 98-107 mmol/L Chloride 105 LAB CO2(LOINC) 22-29 mmol/L CO2 24 LAB EBAL(LOINC mEq/L ) Electrolyte Balance 10.0 LAB BUN(LOINC) 7-18 mg/dL BUN High 20 LAB CRE(LOINC) 0.55-1.02 mg/dL Creatinine High Lvl (s) 1.04 LAB BC(LOINC) 7-27 ratio BUN/Creatinine 19 Ratio LAB CA(LOINC) 8.4-10.2 mg/dL Calcium Lvl 8.5 LAB PROT(LOINC 6.4-8.2 G/dL ) Total Protein 6.9 LAB ALB(LOINC) 3.5-5.0 G/dL Albumin Level 3.6 LAB GLB(LOINC) G/dL Globulin 3.3 LAB AG(LOINC) 1.1-2.5 ratio A/G Ratio 1.1 LAB BILT(LOINC 0.2-1.0 mg/dL ) Bili Total 0.3 LAB AP(LOINC) 40-135 U/L Alk Phos 72 LAB AST(LOINC) 10-40 U/L AST/SGOT 16 LAB ALT(LOINC) 10-35 U/L ALT/SGPT 33 Performed By: #### GFR, CMP #### [address] [address] #### ANEU, ADIFF, CBC #### [address] [address] .GFR Collected: 05/17/2018 Status: F Source: [facility] 8:09 AM FOUNDATION REPOSITORY TYPE CODE TESTS RESULT OUT OF REFERENCE UNITS RANGE LAB GFRAA(LOINC ml/min/1.73 ) sqm GFR 74 Taiwanese Result Comment: GFR Population mean for , Non- Americans Ages 20-29 = 116 mL/min/1.73 sq.m. Ages 30-39 = 107 mL/min/1.73 sq.m. Ages 40-49 = 99 mL/min/1.73 sq.m. Ages 50-59 = 93 mL/min/1.73 sq.m. Ages 60-69 = 85 mL/min/1.73 sq.m. Ages 70+ = 75 mL/min/1.73 sq.m. Chronic Kidney Disease: Less than 60 mL/min/1.73 square meters End Stage Renal Disease: Less than 15 mL/min/1.73 square meters LAB GFRNO(LOINC) ml/min/1.73sqm GFR Non- 61 Result Comment: GFR Population mean for , Non- Americans Ages 20-29 = 116 mL/min/1.73 sq.m. Ages 30-39 = 107 mL/min/1.73 sq.m. Ages 40-49 = 99 mL/min/1.73 sq.m. Ages 50-59 = 93 mL/min/1.73 sq.m. Ages 60-69 = 85 mL/min/1.73 sq.m. Ages 70+ = 75 mL/min/1.73 sq.m. Chronic Kidney Disease: Less than 60 mL/min/1.73 square meters End Stage Renal Disease: Less than 15 mL/min/1.73 square meters Performed By: #### GFR, CMP #### [address] [address] #### ANEU, BILLY [facility] #### [id number] [place], [place] [address] PROGRESS Observed: 04/27/2018 Status: COMPLETED Source: [facility] 1:34 PM CLINIC OTHER CAMPUS REPOSITORY HNO ID: [id number] Author: Judy Solares Service: (none) Author Type: Physician Type: Progress Notes Filed: 04/27/2018 3:12 PM Note Text: Chief Complaint: Gail is seen in follow up for psychiatric problem Interim History: Gail has been having ongoing chemotherapy. She has decided to put off her breast reconstructive surgery until next year because it is a 4 month recovery. SHe has been having a very strained relationship with her father and is beginning to realize just how damaging his attitude and actions toward her have been over the course of her life. This causes her to doubt herself and her value and sometimes affects her intimate relationships ( especially now with her and children). Overall she is functioning better than she has in a year and is caring for her children and taking care of herself physically. She has not gone back to therapy and knows she would benefit from it. General Observations Appearance:Neatly groomed Demeanor:Cooperative Activity:Normal Eye Contact:Good Speech Rate:Normal Volume:Normal Articulation:Clear Coherent: Yes Spontaneous:Yes Language Naming:Intact Repetition:Intact Mood AND Affect Depression:Mild AnxietyModerate Anger:moderate Affect:Full and appropriate to topic, tearful Associations:Logical Process:Normal Knowledge: Good Delusion: No0 . Hallucination: No Suicidal Ideation:No suicidal ideation, intent or plan. Homicidal Ideation:No homicidal ideation, intent or plan. Judgement::Critical Insight:True Orientation:Person, Place, Time and Situation Gait and Station:Unsteady Memory:Intact Attention:Good Concentration:Good Review Of Systems Neurological: Sleep: Not great Headache: No Weakness:No Stiffness: No Tremor:No Gastrointestinal: Appetite:Good Nausea: No Bowel movements:N/A Skin rash: No Other : Diagnosis: AXIS I: ASSESSMENT/PLAN: Unspecified Anxiety Disorder major depression, recurrent, moderate Judy Solares MD AXIS II : AXIS III: Condition: stable Medication: None currently Therapy/ Treatment Plan: Provided support and reassurance. Discussed treatment options. Encouraged her to get back to the counselor she had been seeing and had a good relationship with her. We discussed pros and cons of medications and agreed that she will not start a medication at this time but will call if she feels she is not functioning like she should. Plan discussed including risks, benefits, and side effects of medications (ongoing discussion) and patient agreeable to plan, Spent 40 minutes with the patient. Follow up in 3 months. Progress note marked as sensitive per patient request Yes. Judy Solares MD ONCOLOGY VISIT REPORT Observed: 04/25/2018 Status: F Source: [place] 10:54 AM [facility] REPOSITORY [facility] [address] [place] [address] OFFICE VISIT Date of Service: 04/25/18 1029 MR#: [id number] Acct: [id number] Name: GAIL LACEY Rep #: [id number] : 1985 From: Owen Edouard MD Age/Sex: 33/F Location: ONC Status: Signed - Problem List (1) Cancer of left female breast Status: Chronic Qualifiers: Estrogen receptor status: positive (2) Anemia Status: Chronic - Date of Service Date of Service:: 04/25/18 - Chief Complaint Breast cancer - History of Present Illness Patient is a 32-year-old premenopausal female who presented with an abnormal left nipple discharge, February 2017 a diagnostic mammogram followed by an ultrasound showed an abnormality that was confirmed on biopsy on March 16 to represent an invasive ductal cancer. On April 06, 2017 the patient underwent a left partial mastectomy with sentinel lymph node biopsy with a final pathology showing an infiltrating ductal carcinoma measuring 1.2 cm in maximum diameter poorly differentiated, grade 3, ER negative, KS weak positive, Her- 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 Margins were negative for both invasive and noninvasive cancer. Patient started systemic adjuvant therapy under the care of in [facility] on May 18, 2017. She received her third cycle of treatment on July 02, 2017 with delays due to pancytopenia especially thrombocytopenia. Starting with her third cycle she required growth factor support with Leukine daily injections (as per her insurance authorization). During her infusions she experienced effusions related reactions including shortness of breath flushing back pain that required premedication with H1, H2, steroid medication and slowing down the infusion rate to several hours. She also experienced side effects of hair loss, abnormal taste, mouth sores, bony pains with Leukine. No fevers or infectious complications to date. Pretreatment cardiac evaluation was by echo that reportedly showed an normal LVEF of 60%. Pre-adjuvant chemotherapy evaluation also included a brain MRI due to history of headaches that showed no evidence of metastatic disease and abnormal liver functions that showed fatty liver. Reportedly patient was offered fertility preservation consultation prior to therapy but she declined. Her had vasectomies, pretreatment test was negative and she reports no menses Since May 2017. She reported that her wound healing was protracted. Patient was seen in initial consultation July 09, 2017 wishing to transfer care to [place] for proximity to residence. Treatment: - TCH X6 cycles -08/2017- (delays due to delayed wound healing, cytopenias and febrile neutropenia). - Herceptin maintenance 10/04/2017 - Tamoxifen October-March 2018 then stopped (wishing to have more children if possible, disease is ER negative, KS weak positive) Adjuvant radiation therapy; 4256 cGy of mixed 6, 10, and 15 MV photons in 16 fractions to the left breast with a 3D conformal technique consisting of MONEGASQUE, LPO, and MONTERO carmen with field and field to improve dose homogeneity. A sequential boost consisting of 1000 cGy of mixed 10 and 15 MV photon in 4 fractions was delivered to the lumpectomy bed with a 3D conformal technique consisting of MONEGASQUE and LPO carmen. This brought the total dose delivered to 5256 cGy in 20 fractions. Patient was treated in the prone position to limit dose to the heart and lungs. Date of First Treatment: 10/13/2017 Date of Last Treatment: 11/10/2017 - Past Medical/Social History Past Medical History Past Medical History: Anxiety,Asthma,Breast problem,Depression, Headaches,Immunodeficiency,Pneumonia,Sleep apnea ,Thyroid disease,Neutropenia,Psychiatric disorder,Vitamin D deficiency Other Past Medical History: fatty liver Cancer: Breast cancer Past Surgical History Surgical: Lumpectomy Other Surgical History: WISDOM TEETH 2003 X 4 LEFT BREAST LUMPECTOMY 04/06/17 DEBRIDEMENT OF LEFT BREAST WOUND POST OP 08/03 Family History Paternal Past Medical History: Heart disease,Hyperlipidemia Maternal Past Medical History: Thyroid disease,Psychiatric disorder Social History Smoking Status Former smoker Review of Systems Constitutional:: Denies: Fever, Sweats, Weight loss, Appetite change, Chills Cardiovascular:: Denies: Chest pain, Palpitations, Dyspnea on exertion, Orthopnea, PND, Shortness of breath Respiratory: Denies: Cough, Hemoptysis, Shortness of Breath, Wheezing Gastrointestinal:: Denies: Abdominal pain, Nausea, Vomiting, Diarrhea, Constipation, Hematochezia Genitourinary: Reports: - - Resumed menses after end of chemotherapy although they appear to be at longer intervals of 6 weeks. Denies: Dysuria, Hematuria, Flank pain Musculoskeletal:: Reports: Back pain - Chronic pains controlled. Denies: Myalgia, Arthralgia Skin: Denies: Rash, Skin Changes, Wounds Neurological:: Denies: Headache, Dizziness, Visual changes, Tinnitus, Hearing loss Psychiatric: Denies: Anxiety, Depression, Homicidal Ideations, Suicidal Ideations Comment: Wound continues to heal slowly, no drains, no antibiotics, will require hyperbaric oxygen, under the care of Dr. Robertson. Vital Signs Height 5 ft 8 in Weight: 97.341 kg Weight in Pounds 214.6 lbs BMI 36.4 Pulse Ox 98 - Physical Exam General: Alert, Oriented x3, No apparent distress, - - ECOG 1 HEENT: Atraumatic, PERRLA, EOMI, Normocephalic Oropharynx:: Dry mucosa Neck:: Supple, Trachea midline, - - Port okay. Negative for: JVD, bilateral Cardiac:: Regular rate, Regular rhythm, Normal S1, Normal S2. Negative for: Murmur Lungs: Clear to auscultation, Excusion symmetrical. Negative for: Rhonchi, Wheezes Abdomen:: Soft, Non-tender, Non-distended. Negative for: Hepatosplenomegaly Extremities:: Negative for: Cyanosis, Edema Neurological: Neuro grossly intact Skin:: Negative for: Lesions, Rash, Petechiae, Ecchymosis Psychiatric:: Appropriate affect, Euthymic Lymphatics:: Negative for: Cervical lymphadenopathy, Supraclavicular lymphadenopathy Assessment and Plan 32-year-old premenopausal female with 1- Invasive ductal cancer of the left breast stage I (T1c, N0, M0) high-grade G3, ER negative, KS weak positive, HER-2 positive. Patient is status post partial mastectomy with sentinel lymph node biopsy April 06, 2017. She received adjuvant systemic chemotherapy with TCH May through August 2017, . Delays of treatment has occurred due to delayed wound healing, cytopenias and intercurrent illnesses (Febrile neutropenia, URTI, and dental infection) Started 1 year maintenance of Herceptin October 04, 2017. Received adjuvant radiation therapy September 2017 through October 2017. Received adjuvant Tamoxifen October through March 2018, well- tolerated then stopped (she wishes to have more children, disease is ER negative KS weakly positive and therefore the added benefit is small). She resumed menses after the conclusion of her chemotherapy. 2-anemia most likely related to chronic inflammatory disease (wound), on PO Fe. Plan: 1. Continue with 1 year maintenance Herceptin. 2. She stopped tamoxifen (reasons stated up) 3. Monitoring of cardiac function with echo every 3 months during the year of treatment then at 18 months. 4. Open wound following drainage of a suspected infected seroma, follow-up was Dr. Robertson. 5. Pain issues related to wound deferred to Dr. Robertson discretion. Chronic back pain issues unrelated to cancer deferred to PCP, and patient used to see an outside pain management advised to follow-up with. Impression and plan discussed with patient.. Follow-up in 3 weeks Primary Care Provider: Kaden Robles MD Referring Provider: 04/25/18 1054 <Electronically signed by Owen Edouard MD> Date Owen Edouard MD Cosigner Signature: Date (if applicable) CC: DOWNTIME REPORT Observed: 04/07/2018 Status: F Source: [facility] 12:19 PM [facility] REPOSITORY [facility] Medical Records Department [address] [place] [address] Downtime Report MR#: [id number] Acct: [id number] Name: GAIL LACEY Rep #: [id number] : 1985 32 From: Kaden Galarza PCP: aKden Robles MD Status: REG RCR This patient was seen during an EMR downtime March 21, 2018 - March 28, 2018. This patient may have a combination of paper and electronic documentation or all paper documentation. All documentation is viewable within the e-chart portion of [facility] for each patient visit. ECHOCARDIOGRAM COMPLETE Observed: 03/29/2018 Status: F Source: [facility] 3:25 PM [facility] REPOSITORY [facility] Cardiovascular Services [address] [place] [address] Echo Complete 03/29/18 1359 MR#: [id number] Acct: [id number] Name: GAIL LACEY Rep #: [id number] : 1985 32 From: Nathaniel Walters MD Attending Dr: Owen Edouard MD Status: REG CLI Ordering Dr: Owen Edouard MD Date: 03/29/18 Location: [facility] Sex: F C Admitted: Reason For Study: breast ca, senior living med therapy Procedure This was a 2D Doppler, Color Flow transthoracic echocardiogram. The study was technically difficult. Due to open wound lower left breast area, extremely painful to touch. Exam performed in department. Left Ventricle Based upon the 2D echocardiographic and contrast enhanced images obtained there appears to be grossly normal left ventricular size, wall motion, and systolic function. The estimated ejection fraction is 55 %. Transmitral doppler flow suggestive of impaired relaxation of left ventricle. Right Ventricle Normal RV size. Normal systolic function. Atria Normal left atrium. Normal right atrium. No doppler evidence for ASD. Mitral Valve There is no mitral annular calcification. Normal mitral valve. Trivial mitral valve insufficiency. Tricuspid Valve Normal tricuspid valve. Trivial tricuspid valve insufficiency. Unable to estimate RV systolic pressure/pulmonary artery pressure due to technically difficult study. Aortic Valve The aortic valve is not well visualized. Pulmonic Valve The pulmonic valve is not well visualized. Trivial pulmonic valve insufficiency. Great Vessels Normal sized aortic root. Pericardium/Pleural No pericardial effusion. MMode/2D Measurements AND Calculations LVIDd: 4.1 cm IVSd: 0.99 cm Ao root diam: 2.8 cm LVIDs: 2.6 cm LVPWd: 0.95 cm LA dimension: 3.2 cm FS: 36.5 % LAV(MOD-bp): 37.9 ml EDV(MOD-sp4): 60.9 ml EDV(MOD-sp2): 32.7 ml LAV(MOD-bp) Indexed: 18.2 ml/m2 ESV(MOD-sp4): 27.7 ml EF(MOD-sp2): 60.2 % LAV(MOD-sp2): 33.9 ml EF(MOD-sp4): 54.5 % LAV(MOD-sp4): 32.3 ml SV(MOD-sp4): 33.2 ml SV(MOD-sp2): 19.7 ml LA A4 area: 14.3 cm2 RA A4 area: 14.1 cm2 Doppler Measurements AND Calculations MV E max nash: 54.4 cm/sec PA V2 max: 92.5 cm/sec MV A max nash: 70.7 cm/sec MV E/A: 0.77 Interpretation Summary The study was technically difficult. Based upon the 2D echocardiographic and contrast enhanced images obtained there appears to be grossly normal left ventricular size, wall motion, and systolic function. The estimated ejection fraction is 55 %. Trivial mitral valve insufficiency. Trivial tricuspid valve insufficiency. Trivial pulmonic valve insufficiency. Unable to estimate RV systolic pressure/pulmonary artery pressure due to technically difficult study. Transmitral doppler flow suggestive of impaired relaxation of left ventricle Ordering Physician: Owen Edouard Referring Physician: Owen Edouard Performed By: Eun Garcia, BRUNO, RVT 03/29/18 1525 Date Nathaniel Walters MD CC: Kaden Robles MD; Owen Edouard MD Date Dictated: 03/29/18 1359 Date Transcribed: 03/29/18 1525 Bridge Painter Helper: Signed ONCOLOGY VISIT REPORT Observed: 03/28/2018 Status: F Source: [place] 4:20 PM [facility] REPOSITORY [facility] [address] [place] [address] OFFICE VISIT Date of Service: 03/28/18 1612 MR#: [id number] Acct: [id number] Name: GAIL LACEY Rep #: [id number] : 1985 From: Owen Edouard MD Age/Sex: 32/F Location: ONC Status: Signed - Problem List (1) Cancer of left female breast Status: Chronic Qualifiers: Estrogen receptor status: positive (2) Anemia Status: Chronic - Date of Service Date of Service:: 03/28/18 - Chief Complaint Breast cancer on treatment - History of Present Illness Patient is a 32-year-old premenopausal female who presented with an abnormal left nipple discharge, February 2017 a diagnostic mammogram followed by an ultrasound showed an abnormality that was confirmed on biopsy on March 16 to represent an invasive ductal cancer. On April 06, 2017 the patient underwent a left partial mastectomy with sentinel lymph node biopsy with a final pathology showing an infiltrating ductal carcinoma measuring 1.2 cm in maximum diameter poorly differentiated, grade 3, ER negative, KS weak positive, Her- 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 Margins were negative for both invasive and noninvasive cancer. Patient started systemic adjuvant therapy under the care of in [facility] on May 18, 2017. She received her third cycle of treatment on July 02, 2017 with delays due to pancytopenia especially thrombocytopenia. Starting with her third cycle she required growth factor support with Leukine daily injections (as per her insurance authorization). During her infusions she experienced effusions related reactions including shortness of breath flushing back pain that required premedication with H1, H2, steroid medication and slowing down the infusion rate to several hours. She also experienced side effects of hair loss, abnormal taste, mouth sores, bony pains with Leukine. No fevers or infectious complications to date. Pretreatment cardiac evaluation was by echo that reportedly showed an normal LVEF of 60%. Pre-adjuvant chemotherapy evaluation also included a brain MRI due to history of headaches that showed no evidence of metastatic disease and abnormal liver functions that showed fatty liver. Reportedly patient was offered fertility preservation consultation prior to therapy but she declined. Her had vasectomies, pretreatment test was negative and she reports no menses Since May 2017. She reported that her wound healing was protracted. Patient was seen in initial consultation July 09, 2017 wishing to transfer care to [place] for proximity to residence. Treatment: - [facility] X6 cycles -08/2017- (delays due to delayed wound healing, cytopenias and febrile neutropenia). - Herceptin maintenance 10/04/2017 - Tamoxifen 11/15/2017- Adjuvant radiation therapy; 4256 cGy of mixed 6, 10, and 15 MV photons in 16 fractions to the left breast with a 3D conformal technique consisting of MONEGASQUE, LPO, and MONTERO carmen with field and field to improve dose homogeneity. A sequential boost consisting of 1000 cGy of mixed 10 and 15 MV photon in 4 fractions was delivered to the lumpectomy bed with a 3D conformal technique consisting of MONEGASQUE and LPO carmen. This brought the total dose delivered to 5256 cGy in 20 fractions. Patient was treated in the prone position to limit dose to the heart and lungs. Date of First Treatment: 10/13/2017 Date of Last Treatment: 11/10/2017 - Past Medical/Social History Past Medical History Past Medical History: Anxiety,Asthma,Breast problem,Depression, Headaches,Immunodeficiency,Pneumonia,Sleep apnea ,Thyroid disease,Neutropenia,Psychiatric disorder,Vitamin D deficiency Other Past Medical History: fatty liver Cancer: Breast cancer Past Surgical History Surgical: Lumpectomy Other Surgical History: WISDOM TEETH 2003 X 4 LEFT BREAST LUMPECTOMY 04/06/17 DEBRIDEMENT OF LEFT BREAST WOUND POST OP 08/03 Family History Paternal Past Medical History: Heart disease,Hyperlipidemia Maternal Past Medical History: Thyroid disease,Psychiatric disorder Social History Smoking Status Former smoker Review of Systems Constitutional:: Denies: Fever, Sweats, Weight loss, Appetite change, Chills Cardiovascular:: Denies: Chest pain, Palpitations, Dyspnea on exertion, Orthopnea, PND, Shortness of breath Respiratory: Denies: Cough, Hemoptysis, Shortness of Breath, Wheezing Gastrointestinal:: Denies: Abdominal pain, Nausea, Vomiting, Diarrhea, Constipation, Hematochezia Genitourinary: Reports: - - Last menstrual period March 2018. Denies: Dysuria, Hematuria, Flank pain Musculoskeletal:: Reports: - - She is on narcotic analgesics regularly now for her wound and is pain free. Denies: Back pain, Myalgia, Arthralgia Skin: Denies: Rash, Skin Changes, Wounds Neurological:: Denies: Headache, Dizziness, Visual changes, Tinnitus, Hearing loss Psychiatric: Denies: Anxiety, Depression, Homicidal Ideations, Suicidal Ideations Comment: Reports that wound is healing Vital Signs Height 5 ft 8 in Weight: 95.254 kg Weight in Pounds 210.0 lbs BMI 36.4 Pulse Ox 99 - Physical Exam General: Alert, Oriented x3, No apparent distress, - - ECOG 1 HEENT: Atraumatic, PERRLA, EOMI, Normocephalic Oropharynx:: Dry mucosa Neck:: Supple, Trachea midline, - - Port okay. Negative for: JVD, bilateral Cardiac:: Regular rate, Regular rhythm, Normal S1, Normal S2. Negative for: Murmur Lungs: Clear to auscultation, Excusion symmetrical. Negative for: Rhonchi, Wheezes Abdomen:: Soft, Non-tender, Non-distended. Negative for: Hepatosplenomegaly Extremities:: Negative for: Cyanosis, Edema Neurological: Neuro grossly intact Skin:: Negative for: Lesions, Rash, Petechiae, Ecchymosis Psychiatric:: Appropriate affect, Euthymic Lymphatics:: Negative for: Cervical lymphadenopathy, Supraclavicular lymphadenopathy, Axillary lymphadenopathy Laboratory Data: Laboratory Tests WBC 3.6 L (4.4-11.0) K/mm3 RBC 4.23 (4.2-5.4) M/mm3 Hgb 11.7 L (12.0-15.0) g/dl Assessment and Plan 32-year-old premenopausal female with 1- Invasive ductal cancer of the left breast stage I (T1c, N0, M0) high-grade G3, ER negative, KS weak positive, HER-2 positive. Patient is status post partial mastectomy with sentinel lymph node biopsy April 06, 2017. She received adjuvant systemic chemotherapy with TCH May through August 2017, . Delays of treatment has occurred due to delayed wound healing, cytopenias and intercurrent illnesses (Febrile neutropenia, URTI, and dental infection) Started 1 year maintenance of Herceptin October 04, 2017. Received adjuvant radiation therapy September 2017 through October 2017. Started adjuvant Tamoxifen 11/15/2017, well-tolerated. She resumed menses after the conclusion of her chemotherapy. At the present time data about ovarian suppression with an aromatase inhibitor is evolving and is to be considered for those who are at high risk for recurrence (for example node positive disease) due to a disease free survival benefit but not over all survival. 2-anemia most likely related to chronic inflammatory disease (wound), on PO Fe. Plan: 1. Continue with 1 year maintenance Herceptin. 2. Continue adjuvant hormonal therapy with tamoxifen . Patient is premenopausal at Dx. Treatment will be for 5-10 years depending on tolerance and menopausal status. 3. Monitoring of cardiac function with echo every 3 months scheduled March 2018. 4. Open wound following drainage of a suspected infected seroma, follow-up was Dr. Robertson. 5. Pain issues related to wound deferred to Dr. Robertson discretion. Chronic back pain issues unrelated to cancer deferred to PCP, and patient used to see an outside pain management advised to follow-up with. Impression and plan discussed with patient.. Follow-up in 3 weeks Primary Care Provider: Kaden Robles MD Referring Provider: 03/28/18 1593 <Electronically signed by Owen Edouard MD> Date Shashijocelyn Silke TREVIZO Cosigner Signature: Date (if applicable) CC: CBC W/DIFF, AUTOMATED Collected: 03/28/2018 Status: F Source: [place] 9:28 AM [facility] REPOSITORY Order Comment: Reason for Laboratory Test . TYPE CODE TESTS RESULT OUT OF RANGE REFERENCE UNITS LAB L100.1000 4.4-11.0 K/mm3 Low WBC 3.6 LAB L100.1200 4.2-5.4 M/mm3 Normal RBC 4.23 LAB L100.1300 12.0-15.0 g/dl Low HGB 11.7 LAB L100.1400 37-47 % Low HCT 35.2 LAB L100.1500 81-99 fL Normal MCV 83.2 LAB L100.1600 27.0-32.0 pg Normal MCH 27.7 LAB L100.1700 32-36 g/gl Normal MCHC 33.2 LAB L100.1810 11.6-14.6 % Normal RDW CV 13.4 LAB L100.1820 35.1-43.9 fl Normal RDW SD 40.5 LAB L100.1900 150-450 K/mm3 Low PLT 126 LAB L100.2000 6.2-12.0 fl Normal MPV 8.0 LAB L100.2100 47-70 % Normal NEUT% 62.9 LAB L100.2200 19-41 % Normal LY% 30.4 LAB L100.2300 0-10 % Normal MONO% 4.5 LAB L100.2400 0-5 % Normal EO% 1.9 LAB L100.2500 0-1 % Normal BASO% 0.3 LAB L100.2550 0.0-0.9 % Normal IM GRAN % 0.000 Result Comment: IG% - Immature Granulocytes (promyelocytes, myelocytes and metamyelocytes) > 1% indicates that a LEFT SHIFT is Present. LAB L100.2620 2.0-7.7 X10 3/uL Normal Absolute Neut 2.3 LAB L100.2720 0.83-4.51 X10 3/ul Normal Absolute Lymph 1.09 Performed By: #### L100.0100 #### [facility] [address], [address] COMPREHENSIVE METABOLIC Collected: 03/28/2018 Status: F Source: [place] FAR[place] 9:28 AM [facility] REPOSITORY Order Comment: Reason for Laboratory Test . TYPE CODE TESTS RESULT OUT OF RANGE REFERENCE UNITS LAB L501.0100 74-106 mg/dL High GLU 137 Result Comment: Fasting Glucose result greater than or equal to 126 mg/dL suggests DIABETES MELLITUS per A.D.A. criteria. Please note revised GLUCOSE reference range effective 2017. LAB L501.1000 7-18 mg/dL Normal BUN 14 LAB L501.1100 0.55-1.02 mg/dL High CREAT,SERUM 1.16 Result Comment: The validity of the calculated GFR AND GFRAA in patients over 70 years has not been determined. Clinical correlation is essential. LAB L501.1110 >60 mL/min Low EST GFR 57 Result Comment: Non- GFR Calc LAB L501.1115 >60 mL/min Normal EST GFR - AA 69 Result Comment: GFR Calc LAB L501.1255 ml/min Normal Estimated CRCL 69.58 LAB L501.1300 10-20 RATIO Normal BUN/CRE 12.1 LAB L501.1500 6.4-8. g/dL Normal 2 T PROT 6.8 LAB L501.1800 3.2-5. g/dL Normal 0 ALB 3.5 LAB L501.1950 2.2-4. g/dL Normal 2 GLOB 3.3 LAB L501.2000 0.9-2. RATIO Normal 4 A/G 1.1 LAB L501.2200 8.5-10 mg/dL Normal .1 CA 8.6 LAB L501.4100 15-37 U/L Normal AST 27 LAB L501.4305 45-117 U/L Normal ALK P 84 LAB L501.4405 13-56 U/L High ALT 74 LAB L501.4600 0.20-1 mg/dL Normal .00 T BILI 0.40 LAB L501.5300 136-14 mmol/L Normal 5 NA 143 LAB L501.5600 3.5-5. mmol/L Normal 1 K 3.5 LAB L501.5900 98-107 mmol/L High CL 110 LAB L501.6100 21.0-3 mmol/L Normal 2.0 CO2 24.0 LAB L501.6200 5-15 Normal GAP 9 Performed By: #### L500.4050 #### [facility] [address] [place], [address] ONCOLOGY FOLLOW-UP Observed: 03/17/2018 Status: F Source: [place] VISIT 10:57 AM [facility] REPOSITORY [facility] Medical Records Department [address] [place] [address] Oncology Follow-Up Visit 03/17/18 1038 MR#: [id number] Acct: [id number] Name: GAIL LACEY Rep #: [id number] : 1985 32 From: Devon Xiong DO PCP: Kaden Robles MD Status: REG RCR Y Location: [facility] Date of Service: 03/17/18 Last Clinic Visit: 12/10/17 Diagnosis: Gail Lacey is a 32 year-old pre-menopausal female diagnosed with 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 She received adjuvant radiation therapy consisting of 4256 cGy in 16 fractions to the left breast followed by a boost consisting of 1000 cGy given in 4 fractions to the lumpectomy bed (10/13/17 11/10/17). History of Present Illness: 03/01/2017: Patient completed bilateral diagnostic mammography due to left nipple discharge. There is a focal area of architectural distortion seen in the deep lateral portion of the left breast, BI-RADS Category 0. 03/01/2017: Left breast ultrasound was completed and showed evidence of a 9 x 7 x 12 mm ill-defined hypoechoic density at the 4 o'clock position of the left breast at 6 cm from the nipple which corresponds to the mammographic abnormality, biopsy is recommended BI-RADS Category 4. 03/16/2017: Patient underwent biopsy of the left lower outer quadrant (4 o'clock) breast mass and pathology demonstrated poorly differentiated infiltrating ductal carcinoma (ER 0%, KS 5%, Her2 3+ on IHC). 04/06/2017: Patient underwent lumpectomy of the left breast and sentinel lymph node biopsy. Pathology demonstrated evidence of a 1.2 x 0.9 x 0.9 cm grade 3 infiltrating ductal carcinoma with associated high-grade ductal carcinoma in situ, margins are negative for both invasive and DCIS with closest margin for invasive carcinoma being 0.7 cm and closest margin for DCIS being 0.32 cm, angiolymphatic invasion was not seen a single sentinel lymph node was identified and did not have evidence of metastatic disease. pathologic stage IA (pT1c pN0 (sn) M0). 05/18/2017: Patient was started with systemic adjuvant therapy under the care of Dr. Ferreira in [facility], she received TCH 07/02/2017: She received the third cycle of TCH and required support with Leukine daily injections. 07/10/2017 2 07/13/2017: Patient was admitted for neutropenic fever and found to have a seroma in the left breast. She was evaluated by plastic surgery who felt that there was no need for any intervention and so she was treated with antibiotics. 07/11/2017: Breast ultrasound was performed focused on the 4 o'clock position left breast which demonstrated a septated fluid collection of 2.8 x 2.9 x 1.8 cm there is also noted to be a 1.5 cm left axillary lymph node. 07/13/2017: Bilateral breast MRI was performed due to slight drainage from surgical site. There is a postsurgical seroma identified in the left breast measuring 7 x 2.3 x 1.4 cm, otherwise there are no abnormal masses or lesions found in either breast and there is no evidence for enlarged or abnormal lymph nodes or any abnormality in the visualized chest or liver. 07/29/2017: Patient underwent whole body bone scan which showed normal concentration of radiopharmaceutical throughout the axial and appendicular skeletal system without either a focal decrease or increase in uptake. 08/05/2017: Due to persistent enlarging seroma the patient underwent incision and drainage and excision of the nonhealing postlumpectomy seroma. Pathology demonstrated skin with underlying dense fibroconnective tissue with reactive changes breast tissue is not identified in the sections examined. 09/13/2017: Patient received the sixth cycle of the planned 6 total cycles. 09/18/17: Presented to the ED with intermittent rectal bleeding. She was stable and referred for repeat outpatient labs and possibly an outpatient colonoscopy which was not done given the recent chemotherapy exposure. From 10/13/17 to 11/10/17: She received adjuvant radiation therapy consisting of 4256 cGy in 16 fractions to the left breast followed by a boost consisting of 1000 cGy given in 4 fractions to the lumpectomy bed. Patient was treated in the prone position to limit dose to the heart and lungs and she was treated with concurrent Herceptin. 12/09/17: evaluated by plastic surgery to discuss options for breast pain. MRI breast ordered and neurotin Rx provided. 12/09/17: Initiated Trental/Vit E 01/03/2018: Bilateral breast MRI was performed which demonstrated no abnormal enhancing masses or areas of non-mass enhancement within either breast. There was noted to be minimal skin thickening and deformity in the upper outer quadrant of the left breast at the site of the prior surgery/seroma but no other significant abnormality is identified. BI-RADS Category 2. 01/04/2018: Due to persistent pain patient underwent left breast mastectomy and pathology showed focal chronic inflammation, fibrosis and foreign body giant cell reaction consistent with previous biopsy site. In the sections examined there was no other abnormality and no evidence of malignancy appreciated. Operative culture was negative 01/06/2018 patient was discharged with wound VAC in pain medication. 01/13/18-01/17/18: Patient was admitted due to increased pain. Wound culture was positive for Acinetobacter. She was discharged with ceftriaxone, silver dressing changes, and p.o. analgesia. 01/24/2018: Patient presented to the wound clinic for evaluation and has been followed closely. 01/29/18: Patient seen by vest baster for cervical cancer screening. 02/28/2018: Patient had follow-up with medical oncology recommend continue maintenance Herceptin for 1 year total, and also 5-10 years of tamoxifen use. 03/07/2018: Patient underwent EGD and colonoscopy which demonstrated normal appearance without masses lesions or ulcerations involving the esophagus, stomach, and duodenum as well as the cecum, ascending colon, transverse colon, descending colon, and sigmoid colon. Radiation Treatment History: 1) From 10/13/17 to 11/10/17: She received adjuvant radiation therapy consisting of 4256 cGy in 16 fractions to the left breast followed by a boost consisting of 1000 cGy given in 4 fractions to the lumpectomy bed. Patient was treated in the prone position to limit dose to the heart and lungs and she was treated with concurrent Herceptin. Interval History: The patient presents for follow-up approximately 4 months after completing radiation therapy to the left breast. In the interim she underwent a left breast mastectomy due to persistent breast pain and pathology demonstrated evidence for chronic inflammation but no malignancy and culture was negative. She reports that over the last couple of months she has been healing slowly. Initially she used a wound VAC and then in late December was diagnosed with wound infection and completed 6 weeks of antibiotics about 2 weeks ago. She reports having good pain control on fentanyl 50 mcg changed every 72 hours and does not use breakthrough Percocet at this time, she is going to now decrease to 25 mcg to begin tapering. She continues to take tamoxifen without difficulty. She also has been continuing infusion of Herceptin every 3 weeks and has been tolerating this well overall but does think she had a reaction during the last infusion, she is due for her next infusion on 03/21/2018 and due to complete Herceptin in April. She denies having any fevers or chills or drainage from her wound site and continues to change dressings daily as it is still left open for healing. She reports that she is going to have a reconstructive surgery in April and then will likely start hyperbaric oxygen for assistance with healing following that surgery. Since surgery she has had numbness involving her left side in most of her chest wall. She denies having any lymphedema. She does currently complain of fatigue and also lack of appetite/desire to eat. She has gradually lost about 25 pounds since her last visit 3 months ago and attributes this to reduced appetite and intake. In addition to having less of an appetite she is also had occasional vomiting after eating. Due to previous rectal bleeding and also this issue of vomiting she had a colonoscopy and EGD which were negative for any pathology. She denies having any other problems at this time. I have reviewed the medical, surgical, and other pertinent history in details and have updated medication and allergy information in the electronic medical record. Review of Systems: A 12-point review of systems was completed and was negative except for what is noted in the HPI/Interval History and by the nurse. Height/Weight/BMI: Height: 5 ft 8 in Weight: 108.912 kg BMI: 36.4 Vital Signs Height 5 ft 8 in Weight: 108.912 kg Weight in Pounds 240.1 lbs BMI 36.4 Pulse Ox 99 Physical Exam: ECO KARNOFSKY SCORE: 100% CONSTITUTIONAL: Well-developed, well-nourished, and in no apparent distress. NECK: Supple,with no thyromegaly, and non-tender. Trachea midline. No cervical or supraclavicular adenopathy noted. CARDIAC: Regular rate and rhythm. Normal S1, S2. No murmurs, rubs, or gallops. PULMONARY/CHEST: Lungs are clear to auscultation and percussion bilaterally. No wheezes, rhonchi, or crackles noted. No increased work of breathing. BREAST: The left chest wall and right breast were examined. There are no masses or nodules appreciated in the right breast or axilla, she has normal right arm range of motion and no skin or nipple changes in the right breast. The left chest wall is about a 12 cm bandage on the lateral aspect extending towards the axilla there are no palpable or appreciable lesions involving the medial evaluable and superior skin. She has tightness in the left pectoralis and has reduced arm abduction to just above 90 with some discomfort, there is no evidence for edema in her arm but she does have numbness in parts of her arm since surgery. Imaging: As per HPI Laboratory Data: No new labs to review. 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 She received adjuvant radiation therapy consisting of 4256 cGy in 16 fractions to the left breast followed by a boost consisting of 1000 cGy given in 4 fractions to the lumpectomy bed (10/13/17 11/10/17). Plan: Patient returns for a 4 month follow-up following completion of adjuvant radiation therapy. Unfortunately due to persistent left breast pain she decided to undergo mastectomy and has been healing slowly over the last couple of months. She has future plans of breast reconstruction hyperbaric oxygen to assist with healing. There is no evidence for disease involving the right breast or the evaluable left chest wall. She is due for right breast mammography and this has been scheduled for 04/05/2018. I recommended that she continue Herceptin for 1 total year which will conclude in April and that she remain on tamoxifen for at least 5-10 years. I have recommended that she try to increase her dietary intake and also recommended pursuing a healthy well-balanced plant based diet as well as persistent cardiovascular exercise program to maintain healthy weight and maximally reduce risk of disease recurrence. She was recently prescribed a nausea medication which she is going to attempt to take prior to eating and she is also attempting to find a protein powder that has no ingredients with increased estrogen to begin supplementing to assist with healing. I have referred her to the why weight program to assist her with making positive dietary changes. She completed colonoscopy and gynecologic exam within the last couple of months and I recommended she continue recommended screening, there is a family history of colon cancer and she will be due for colonoscopy again in 10 years. I will have her return to clinic in 4 months for routine exam and follow-up. She was instructed to call with any further questions or concerns in the interim. Devon Xiong DO, Ink Maker, Department of Radiation Oncology [facility] 03/17/18 1058 <Electronically signed by Devon Xiong DO> Date Devon Xiong DO CC: Jose Robertson MD; Owen Edouard MD Signed OPERATIVE REPORT Observed: 03/07/2018 Status: F Source: [place] 8:20 AM [facility] REPOSITORY [facility] Medical Records Department [address] [place] [address] Operative Report 03/07/18 0815 MR#: [id number] Acct: [id number] Name: GAIL LACEY Rep #: [id number] : 1985 32 From: Evangelist Moseley MD PCP: Kaden Robles MD Status: REG [facility] [place] Y Location: [place] [address] Problem List (1) GERD (gastroesophageal reflux disease) Status: Acute Qualifiers: Esophagitis presence: without esophagitis Qualified Code(s): K21.9 - Gastro-esophageal reflux disease without esophagitis (2) Family history of colon cancer in father Status: Acute Report of Operation Date of Procedure: 03/07/18 Pre-Operative Diagnosis: k21.9 GERD. z80.0 family history of colon cancer (father) Post-Operative Diagnosis: Same Surgery/Procedure Performed:: 89757 esophagogastroduodenoscopy with biopsy. [address] colonoscopy Type of Anesthesia:: MAC Anesthesiologist: Cyrus Jeff Description of Procedure: Patient was brought into the endoscopy suite. Back of her throat was sprayed with Cetacaine spray. She was placed on the left lateral decubitus side. She was given graded anesthesia. A bite-block was placed. Scope was inserted in the back of the oropharynx. It was directed down through the esophagus into the stomach and into the duodenum without difficulty. Operative findings: 1. Duodenum: Normal appearance no mass lesions no ulcerations no signs of bleeding. 2. Stomach: Normal appearance no mass lesions no ulcerations. Minimal gastritis was identified. Biopsy for H. pylori was obtained. Retroflexion did not show any signs of hiatal hernia. 3. Esophagus: Normal appearance no mass lesions Z line was at 37 cm there was absolutely no signs of erythema. Colonoscope was inserted into the rectum. It was directed through the sigmoid colon, descending colon, transverse colon, ascending colon, to the cecum. Operative findings: 1. Cecum: Normal appearance no mass lesions normal ileocecal valve. 2. Ascending colon: Normal appearance no mass lesions. 3. Transverse colon: Normal appearance no mass lesions. 4. Descending colon: Normal appearance no mass lesions. 5. Sigmoid colon: Normal appearance no mass lesions. 6. Rectum: Normal appearance no mass lesions retroflexion did show a few internal hemorrhoids which were not actively bleeding. Scope was withdrawn digital rectal exam was performed showing no masses within the anus. She will need to have another colonoscopy in 5 years secondarily to family history of colon cancer. - Admit VTE Documentation VTE Present on Admission: No VTE Mechan Device Prophylaxis: None VTE Pharm Prophylaxis ordered?: No Reason prophylaxis not ordered:: Treatment Not Indicated 03/07/18 0820 <Electronically signed by Evangelist Moseley MD> Date Evangelist Moseley MD CC: Kaden Robles MD; Evangelist Moseley MD Signed SURGERY VISIT REPORT Observed: 03/01/2018 Status: F Source: [place] 4:54 PM [facility] REPOSITORY [facility] [address] [place] [address] [address] [place] [address] OFFICE VISIT Date of Service: 03/01/18 MR#: [id number] Acct: [id number] Name: GAIL LACEY Jordan Rep #: [id number] : 1985 Provider: Izabella Berger PA-C Age/Sex: 32/F Location: [facility] Status: Signed Intake Vital Signs03/01/18 Height 5 ft 8 in 03/01/18 Weight: 218 lb 1 oz 03/01/18 Body Mass Index (BMI) 33.1 Intake Visit Reasons: Update H AND P C-SCOPE DP Chief Complaint: 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: No Is patient in pain?: No Allergies hydromorphone [From Dilaudid] Allergy (Severe, Verified 03/01/18 14:20) Laryngospasms morphine Allergy (Severe, Verified 03/01/18 14:20) chest tightening TAPE Adverse Reaction (Mild, Uncoded 03/01/18 10:49) Other Medications Tamoxifen Citrate [Nolvadex] 20 mg PO QHS 01/03/18 [History Confirmed 03/01/18] proMETHazine tablet [Phenergan tablet] 25 mg PO 4X/DAY PRN PRN #30 tab 01/06/18 [Rx Confirmed 03/01/18] Fentanyl 50 mcg TD Q3D 01/13/18 [History Confirmed 03/01/18] Pentoxifylline [Trental] 400 mg PO BID 01/13/18 [History Confirmed 03/01/18] Albuterol Aerosols [Ventolin Aerosols] 2.5 mg INHALATION Q2H PRN PRN vial.neb. 01/17/18 [Rx Confirmed 03/01/18] Iron Polysaccharide Complex [Ferrex 150] 150 mg PO DAILYCM #30 cap 01/17/18 [Rx Confirmed 03/01/18] Silver/Hydrocolloid Dressing [Aquacel-Ag W-Hydrofiber Dress] 1 ea TP .QDAILY #30 bandage 01/17/18 [Rx Confirmed 03/01/18] levothyroxine 150 mcg tablet 150 mcg PO DAILY@0600 #30 tab 01/27/18 [Rx Confirmed 03/01/18] liothyronine 5 mcg tablet 5 mcg PO DAILY #30 tab 01/27/18 [Rx Confirmed 03/01/18] Omeprazole [Omeprazole] 40 mg PO DAILY 01/31/18 [History Confirmed 03/01/18] Gabapentin [Neurontin] 300 mg PO DAILY 03/01/18 [History Confirmed 03/01/18] Oxycodone HCl/Acetaminophen [Percocet 5-325] 2 mg PO DAILY 03/01/18 [History Confirmed 03/01/18] Trastuzumab [Herceptin] 150 mg IV QWEEK 03/01/18 [History Confirmed 03/01/18] Is last menstrual period known: No Post menopausal: No Patient : No PFSH Medical History Anxiety (Acute) Asthma (Acute) BLADDER/URINARY TRACT INFECTION (Acute) Breast cancer (Acute) Carpal tunnel syndrome (Acute) Depression (Acute) Headache (Acute) Hives (Acute) Immunodeficiency (Acute) NEUROPATHY AFTER ARM SURGERY (Acute) NON HEALING POST- LUMPECTOMY SEROMA ULCER LEFT BREAST (Acute) Neutropenia (Acute) Pneumonia (Acute) Polycystic ovary (Acute) Psychiatric disorder (Acute) Sleep apnea (Acute) Thyroid disease (Acute) Vitamin D deficiency (Acute) med port placement (Acute) Surgical History H/O total mastectomy of left breast (Acute) HOSPITAL FEBRILE NEUTROPENIA DISCHARGED 07/14/2017 (Acute) History of lumpectomy (Acute) History of partial mastectomy of left breast (Acute 03/2017) PORT PLACEMENT (Acute 04/2017) Plantar wart (Acute 2007) SURGICAL PREPARATION LEFT LATERAL BREAST (Acute) [place] teeth extracted (Acute) Family History Mother Psychiatric disorder Thyroid disorder Father Hyperlipidemia Hypertension Father Heart disease Aunt Seizures Grandmother Cancer Colon cancer Grandfather Diabetes Heart disease Social History Smoking Status: Former smoker alcohol intake: never what type of physical activity do you participate in: none seatbelt use: always do you feel safe at home: Yes additional social history: SUN EXPOSURE: RARELY - [employer] HPI HPI HPI: GAIL LACEY, is a 32 F I am following for GERD symptoms and screening colonoscopy. Patient has a history of breast cancer. Her original surgery was in March 2017 at [facility]. She had post-operative chemotherapy and radiation. Patient developed scar tissue which became painful. Dr. Robertson performed a completion mastectomy on January [address] Robertson. She developed a wound infection and went for debridement by Dr. Robertson on 01/13. Patient has a large open wound of the left chest which is being packed. Patient denies other hospitalizations or illnesses. She denies previous cardiac history. She does note obtaining ECHO's every 3 months for chemotherapy. She denies abdominal discomfort, constipation, bright red blood per rectum, melena. ROS General General: Yes fatigue; no weight change, appetite, colon cancer, breast cancer or weakness HEENT HEENT: No difficulty swallowing, eye injury, eye surgery, swollen glands or hoarseness Endo Endocrine: Yes thyroid disease; no diabetes mellitus, thyroid cancer, Hair loss, heat intolerance or cold intolerance Musc Musculoskeletal: Yes back problems; no arthritis, rheumatoid arthritis, gout or joint pain Cardio Cardiovascular: No murmur, pacemaker, heart disease, atrial fibrillation, high blood pressure, heart attack, heart stent, palpitations, shortness of breat with exertion or chest pain Psych Psychiatric: No depression, anxiety or hearing voices Resp Respiratory: No shortness of breath, Yes sleep apnea, No cough, No COPD, Yes asthma, No emphysema, No wheezing Gastro Gastrointestinal: No abdominal pain, No nausea or vomiting, No diarrhea, No constipation, No blood in stool, No acid reflux, No hemorrhoids, No ulcers, No gallbladder problem, No black,tarry stools Geovanni Hematologic: No blood thinners, No blood disorders, No bleeding, No anemia, No blood clots Neuro Neurologic: No weakness Exam Const General: cooperative, healthy appearing, comfortable, no acute distress HENMT Head: normal to inspection Eyes General: appearance normal, both eyes and all related structures Neck Neck mass: No Resp Effort AND Inspection: normal respiratory effort Auscultation: clear to auscultation bilaterally Cardio Rate: regular rate Rhythm: regular rhythm Heart Sounds: no murmurs GI Inspection: normal to inspection Palpation: soft Auscultation: normal bowel sounds Skin Other: Left chest - open wound Neuro General: no focal motor deficits Extrem General: normal to inspection Psych Appearance: grossly normal Affect: normal affect Assessment AND Plan Problems 1. Gastroesophageal reflux disease, esophagitis presence not specified K21.9 2. Family history of colon cancer Z80.[address] Moseley will plan to perform a colonoscopy and EGD with possible biopsies. Procedure details, risks and benefits have been discussed with the patient. Patient has had the opportunity to ask and have questions answered. Patient verbally understands and agrees with the plan. Medications Discontinued: gabapentin (Neurontin) Discontinued Reason: Order edited - D300 mg PO BID 60 caps 1RF iscontinuing original order Coding Level of Care Code Off vis,est,level 3 Diagnoses Gastroesophageal reflux disease, esophagitis presence not specified K21.9 Esophagitis presence: esophagitis presence not specified Family history of colon cancer Z80.0 03/01/18 1654 <Electronically signed by Izabella Berger PA-C> Date Izabella Berger PA-C Cosigner Signature: Date (if applicable) CC: Kaden Robles MD ONCOLOGY VISIT REPORT Observed: 02/28/2018 Status: F Source: [place] 2:21 PM [facility] REPOSITORY [facility] [address] [place] [id number] OFFICE VISIT Date of Service: 02/28/18 1344 MR#: [id number] Acct: [id number] Name: GAIL LACEY Rep #: [id number] : 1985 From: Owen Edouard MD Age/Sex: 32/F Location: [facility] Status: Signed - Problem List (1) Cancer of left female breast Status: Chronic Qualifiers: Estrogen receptor status: positive (2) Anemia Status: Chronic - Date of Service Date of Service:: 02/28/18 - Chief Complaint Breast cancer on treatment - History of Present Illness Patient is a 32-year-old premenopausal female who presented with an abnormal left nipple discharge, February 2017 a diagnostic mammogram followed by an ultrasound showed an abnormality that was confirmed on biopsy on March 16 to represent an invasive ductal cancer. On April 06, 2017 the patient underwent a left partial mastectomy with sentinel lymph node biopsy with a final pathology showing an infiltrating ductal carcinoma measuring 1.2 cm in maximum diameter poorly differentiated, grade 3, ER negative, KS weak positive, Her- 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 Margins were negative for both invasive and noninvasive cancer. Patient started systemic adjuvant therapy under the care of in [facility] on May 18, 2017. She received her third cycle of treatment on July 02, 2017 with delays due to pancytopenia especially thrombocytopenia. Starting with her third cycle she required growth factor support with Leukine daily injections (as per her insurance authorization). During her infusions she experienced effusions related reactions including shortness of breath flushing back pain that required premedication with H1, H2, steroid medication and slowing down the infusion rate to several hours. She also experienced side effects of hair loss, abnormal taste, mouth sores, bony pains with Leukine. No fevers or infectious complications to date. Pretreatment cardiac evaluation was by echo that reportedly showed an normal LVEF of 60%. Pre-adjuvant chemotherapy evaluation also included a brain MRI due to history of headaches that showed no evidence of metastatic disease and abnormal liver functions that showed fatty liver. Reportedly patient was offered fertility preservation consultation prior to therapy but she declined. Her had vasectomies, pretreatment test was negative and she reports no menses Since May 2017. She reported that her wound healing was protracted. Patient was seen in initial consultation July 09, 2017 wishing to transfer care to [place] for proximity to residence. Treatment: - TCH X6 cycles 8-08/2017- (delays due to delayed wound healing, cytopenias and febrile neutropenia). - Herceptin maintenance 10/04/2017 - Tamoxifen 11/15/2017- Adjuvant radiation therapy; 4256 cGy of mixed 6, 10, and 15 MV photons in 16 fractions to the left breast with a 3D conformal technique consisting of MONEGASQUE, LPO, and MONTERO carmen with field and field to improve dose homogeneity. A sequential boost consisting of 1000 cGy of mixed 10 and 15 MV photon in 4 fractions was delivered to the lumpectomy bed with a 3D conformal technique consisting of MONEGASQUE and LPO carmen. This brought the total dose delivered to 5256 cGy in 20 fractions. Patient was treated in the prone position to limit dose to the heart and lungs. Date of First Treatment: 10/13/2017 Date of Last Treatment: 11/10/2017 - Past Medical/Social History Past Medical History Past Medical History: Anxiety,Asthma,Breast problem,Depression, Headaches,Immunodeficiency,Pneumonia,Sleep apnea ,Thyroid disease,Neutropenia,Psychiatric disorder,Vitamin D deficiency Other Past Medical History: fatty liver Cancer: Breast cancer Past Surgical History Surgical: Lumpectomy Other Surgical History: WISDOM TEETH 2003 X 4 LEFT BREAST LUMPECTOMY 04/06/17 DEBRIDEMENT OF LEFT BREAST WOUND POST OP 08/03 Family History Paternal Past Medical History: Heart disease,Hyperlipidemia Maternal Past Medical History: Thyroid disease,Psychiatric disorder Social History Smoking Status Former smoker Review of Systems Constitutional:: Reports: Fatigue. Denies: Fever, Sweats, Weight loss, Appetite change, Chills Cardiovascular:: Denies: Chest pain, Palpitations, Dyspnea on exertion, Orthopnea, PND, Shortness of breath Respiratory: Denies: Cough, Hemoptysis, Shortness of Breath, Wheezing Gastrointestinal:: Denies: Abdominal pain, Nausea, Vomiting, Diarrhea, Constipation, Hematochezia Genitourinary: Denies: Dysuria, Hematuria, 15, Flank pain Musculoskeletal:: Reports: Backache - Chronic. Denies: Back pain, Myalgia, Arthralgia Skin: Denies: Rash, Skin Changes, Wounds Neurological:: Denies: Headache, Dizziness, Visual changes, Tinnitus, Hearing loss Psychiatric: Denies: Anxiety, Depression, Homicidal Ideations, Suicidal Ideations Comment: Wound being followed at wound clinic and Dr. Robertson Vital Signs Height 5 ft 8 in Weight: 101.333 kg Weight in Pounds 223.4 lbs BMI 36.4 Pulse Ox 98 - Physical Exam General: Alert, Oriented x3, No apparent distress HEENT: Atraumatic, PERRLA, EOMI, Normocephalic Oropharynx:: Dry mucosa Neck:: Supple, Trachea midline. Negative for: JVD, bilateral Cardiac:: Regular rate, Regular rhythm, Normal S1, Normal S2. Negative for: Murmur Lungs: Clear to auscultation, Excusion symmetrical. Negative for: Rhonchi, Wheezes Abdomen:: Soft, Non-tender, Non-distended. Negative for: Hepatosplenomegaly Extremities:: Negative for: Cyanosis, Edema Neurological: Neuro grossly intact Skin:: Negative for: Lesions, Rash, Petechiae, Ecchymosis Psychiatric:: Appropriate affect, Euthymic Lymphatics:: Axillary lymphadenopathy. Negative for: Cervical lymphadenopathy, Supraclavicular lymphadenopathy Assessment and Plan 32-year-old premenopausal female with 1- Invasive ductal cancer of the left breast stage I (T1c, N0, M0) high-grade G3, ER negative, KS weak positive, HER-2 positive. Patient is status post partial mastectomy with sentinel lymph node biopsy April 06, 2017. She received adjuvant systemic chemotherapy with TCH May through August 2017, . Delays of treatment has occurred due to delayed wound healing, cytopenias and intercurrent illnesses (Febrile neutropenia, URTI, and dental infection) Started 1 year maintenance of Herceptin October 04, 2017. Received adjuvant radiation therapy September 2017 through October 2017. Started adjuvant Tamoxifen 11/15/2017, well-tolerated. 2-anemia most likely related to chronic inflammatory disease (wound), on PO . Plan: 1. Continue with 1 year maintenance Herceptin. 2. Continue adjuvant hormonal therapy with tamoxifen . Patient is premenopausal at Dx. Treatment will be for 5-10 years depending on tolerance. 3. Monitoring of cardiac function with echo every 3 months next one due first week in March 2018. 4. Open wound following drainage of a suspected infected seroma, follow-up was Dr. Robertson. 5. Pain issues related to wound deferred to Dr. Robertson discretion. Chronic back pain issues unrelated to cancer deferred to PCP, and patient used to see an outside pain management advised to follow-up with. Impression and plan discussed with patient.. Follow-up in 3 weeks Primary Care Provider: Kaden Robles MD Referring Provider: 02/28/18 1421 <Electronically signed by Owen Edouard MD> Date Owen Edouard MD Cosigner Signature: Date (if applicable) CC: COMPREHENSIVE METABOLIC Collected: 02/21/2018 Status: F Source: [place] 2:00 PM [facility] REPOSITORY TYPE CODE TESTS RESULT OUT OF RANGE REFERENCE UNITS LAB L501.0100 74-106 mg/dL Normal GLU 95 Result Comment: Please note revised GLUCOSE reference range effective 2017. LAB L501.1000 7-18 mg/dL Normal BUN 15 LAB L501.1100 0.55-1.02 mg/dL Normal CREAT,SERUM 0.99 Result Comment: The validity of the calculated GFR AND GFRAA in patients over 70 years has not been determined. Clinical correlation is essential. LAB L501.1110 >60 mL/min Normal EST GFR 68 Result Comment: Non- GFR Calc LAB L501.1115 >60 mL/min Normal EST GFR - AA 83 Result Comment: GFR Calc LAB L501.1300 10-20 RATIO Normal BUN/CRE 15.2 LAB L501.1500 6.4-8.2 g/dL T Normal PROT 6.6 LAB L501.1800 3.2-5.0 g/dL Normal ALB 3.2 LAB L501.1950 2.2-4.2 g/dL Normal GLOB 3.4 LAB L501.2000 0.9-2.4 RATIO Normal A/G 0.9 LAB L501.2200 8.5-10.1 mg/dL CA Normal 8.6 LAB L501.4100 15-37 U/L Normal AST 29 LAB L501.4305 45-117 U/L Normal ALK P 104 LAB L501.4405 13-56 U/L Normal ALT 44 LAB L501.4600 0.20-1.00 mg/dL T Normal BILI 0.20 LAB L501.5300 136-145 mmol/L NA Normal 143 LAB L501.5600 3.5-5.1 mmol/L K Normal 3.8 LAB L501.5900 98-107 mmol/L High CL 110 LAB L501.6100 21.0-32.0 mmol/L Normal CO2 26.0 LAB L501.6200 5-15 Normal GAP 7 Performed By: #### L500.4050, L501.6710 #### [facility] [address] [facility] [address] [place], [place], [id number] CRP Collected: 02/21/2018 Status: F Source: [place] 2:00 PM [facility] REPOSITORY TYPE CODE TESTS RESULT OUT OF RANGE REFERENCE UNITS LAB L501.6710 0.0-3.0 mg/L High 6.66 C-REACTIVE PROT Result Comment: C-Reactive Protein (CRP) provides useful information for the diagnosis, therapy and monitoring of inflammatory processes and associated diseases. For the evaluation of Relative Risk for Cardiovascular Disease, a High Sensitivity CRP (HSCRP) should be ordered. Performed By: #### L500.4050, L501.6710 #### [facility] [address] [facility] [place], [place], [address] CBC-COMPLETE BLOOD CNT Collected: 02/21/2018 Status: F Source: [place] NO DIFF 2:00 PM [facility] REPOSITORY TYPE CODE TESTS RESULT OUT OF RANGE REFERENCE UNITS LAB L100.1000 4.4-11.0 K/mm3 Low WBC 4.1 LAB L100.1200 4.2-5.4 M/mm3 Low RBC 3.60 LAB L100.1300 12.0-15.0 g/dl Low HGB 10.1 LAB L100.1400 37-47 % Low HCT 30.4 LAB L100.1500 81-99 fL Normal MCV 84.4 LAB L100.1600 27.0-32.0 pg Normal MCH 28.1 LAB L100.1700 32-36 g/gl Normal MCHC 33.2 LAB L100.1810 11.6-14.6 % Normal RDW CV 13.1 LAB L100.1820 35.1-43.9 fl Normal RDW SD 39.3 LAB L100.1900 150-450 K/mm3 Low PLT 143 LAB L100.2000 6.2-12.0 fl Normal MPV 8.6 Performed By: #### L100.0500, L101.9900 #### [facility] [address] [place], [place], [address] ERYTHROCYTE SED RATE Collected: 02/21/2018 Status: F Source: [place] 2:00 PM [facility] REPOSITORY TYPE CODE TESTS RESULT OUT OF RANGE REFERENCE UNITS LAB L102.0000 0-20 mm/hr Normal SED RATE 4 Performed By: #### L100.0500, L101.9900 #### [facility] [address] [facility] [place], [place], [id number] CBC-COMPLETE BLOOD CNT Collected: 02/14/2018 Status: F Source: [place] NO DIFF 2:00 PM [facility] REPOSITORY TYPE CODE TESTS RESULT OUT OF RANGE REFERENCE UNITS LAB L100.1000 4.4-11.0 K/mm3 Normal WBC 5.4 LAB L100.1200 4.2-5.4 M/mm3 Low RBC 3.97 LAB L100.1300 12.0-15.0 g/dl Low HGB 10.9 LAB L100.1400 37-47 % Low HCT 33.4 LAB L100.1500 81-99 fL Normal MCV 84.1 LAB L100.1600 27.0-32.0 pg Normal MCH 27.5 LAB L100.1700 32-36 g/gl Normal MCHC 32.6 LAB L100.1810 11.6-14.6 % Normal RDW CV 13.7 LAB L100.1820 35.1-43.9 fl Normal RDW SD 41.2 LAB L100.1900 150-450 K/mm3 Low PLT 145 LAB L100.2000 6.2-12.0 fl Normal MPV 8.5 Performed By: #### L100.0500, L101.9900 #### [facility] [address] [place], [place], [id number] ERYTHROCYTE SED RATE Collected: 02/14/2018 Status: F Source: [place] 2:00 PM [facility] REPOSITORY TYPE CODE TESTS RESULT OUT OF RANGE REFERENCE UNITS LAB L102.0000 0-20 mm/hr Normal SED RATE 9 Performed By: #### L100.0500, L101.9900 #### [facility] [place], [address] COMPREHENSIVE METABOLIC Collected: 02/14/2018 Status: F Source: [facility] [facility] 2:00 PM [facility] REPOSITORY TYPE CODE TESTS RESULT OUT OF RANGE REFERENCE UNITS LAB L501.0100 74-106 mg/dL Normal GLU 97 Result Comment: Please note revised GLUCOSE reference range effective 2017. LAB L501.1000 7-18 mg/dL Normal BUN 12 LAB L501.1100 0.55-1.02 mg/dL Normal CREAT,SERUM 1.01 Result Comment: The validity of the calculated GFR AND GFRAA in patients over 70 years has not been determined. Clinical correlation is essential. LAB L501.1110 >60 mL/min Normal EST GFR 67 Result Comment: Non- GFR Calc LAB L501.1115 >60 mL/min Normal EST GFR - AA 81 Result Comment: GFR Calc LAB L501.1300 10-20 RATIO Normal BUN/CRE 11.9 LAB L501.1500 6.4-8.2 g/dL T Normal PROT 7.0 LAB L501.1800 3.2-5.0 g/dL Normal ALB 3.4 LAB L501.1950 2.2-4.2 g/dL Normal GLOB 3.6 LAB L501.2000 0.9-2.4 RATIO Normal A/G 0.9 LAB L501.2200 8.5-10.1 mg/dL CA Normal 8.9 LAB L501.4100 15-37 U/L Normal AST 20 LAB L501.4305 45-117 U/L Normal ALK P 106 LAB L501.4405 13-56 U/L Normal ALT 34 LAB L501.4600 0.20-1.00 mg/dL T Normal BILI 0.30 LAB L501.5300 136-145 mmol/L NA Normal 140 LAB L501.5600 3.5-5.1 mmol/L K Normal 3.8 LAB L501.5900 98-107 mmol/L High CL 108 LAB L501.6100 21.0-32.0 mmol/L Normal CO2 24.0 LAB L501.6200 5-15 Normal GAP 8 Performed By: #### L500.4050, L501.6710 #### [facility] [address] [place], [address] CRP Collected: 02/14/2018 Status: F Source: [place] 2:00 PM [facility] REPOSITORY TYPE CODE TESTS RESULT OUT OF RANGE REFERENCE UNITS LAB L501.6710 0.0-3.0 mg/L High 8.28 C-REACTIVE PROT Result Comment: C-Reactive Protein (CRP) provides useful information for the diagnosis, therapy and monitoring of inflammatory processes and associated diseases. For the evaluation of Relative Risk for Cardiovascular Disease, a High Sensitivity CRP (HSCRP) should be ordered. Performed By: #### L500.4050, L501.6710 #### [facility] [address] [place], [address] ONCOLOGY VISIT REPORT Observed: 02/07/2018 Status: F Source: [place] 2:26 PM [facility] REPOSITORY [facility] [address] [place] [address] [place] [address] OFFICE VISIT Date of Service: 02/07/18 1309 MR#: [id number] Acct: [id number] Name: GAIL LACEY Rep #: [id number] : 1985 From: Owen Edouard MD Age/Sex: 32/F Location: OMD Status: Signed - Problem List (1) Cancer of left female breast Status: Chronic Qualifiers: Estrogen receptor status: positive - Date of Service Date of Service:: 02/07/18 - Chief Complaint Breast cancer on treatment - History of Present Illness Patient is a 32-year-old premenopausal female who presented with an abnormal left nipple discharge, February 2017 a diagnostic mammogram followed by an ultrasound showed an abnormality that was confirmed on biopsy on March 16 to represent an invasive ductal cancer. On April 06, 2017 the patient underwent a left partial mastectomy with sentinel lymph node biopsy with a final pathology showing an infiltrating ductal carcinoma measuring 1.2 cm in maximum diameter poorly differentiated, grade 3, ER negative, KS weak positive, Her- 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 Margins were negative for both invasive and noninvasive cancer. Patient started systemic adjuvant therapy under the care of in [facility] on May 18, 2017. She received her third cycle of treatment on July 02, 2017 with delays due to pancytopenia especially thrombocytopenia. Starting with her third cycle she required growth factor support with Leukine daily injections (as per her insurance authorization). During her infusions she experienced effusions related reactions including shortness of breath flushing back pain that required premedication with H1, H2, steroid medication and slowing down the infusion rate to several hours. She also experienced side effects of hair loss, abnormal taste, mouth sores, bony pains with Leukine. No fevers or infectious complications to date. Pretreatment cardiac evaluation was by echo that reportedly showed an normal LVEF of 60%. Pre-adjuvant chemotherapy evaluation also included a brain MRI due to history of headaches that showed no evidence of metastatic disease and abnormal liver functions that showed fatty liver. Reportedly patient was offered fertility preservation consultation prior to therapy but she declined. Her had vasectomies, pretreatment test was negative and she reports no menses Since May 2017. She reported that her wound healing was protracted. Patient was seen in initial consultation July 09, 2017 wishing to transfer care to [place] for proximity to residence. Treatment: - [facility] X6 cycles -08/2017- (delays due to delayed wound healing, cytopenias and febrile neutropenia). - Herceptin maintenance 10/04/2017 - Tamoxifen 11/15/2017- Adjuvant radiation therapy; 4256 cGy of mixed 6, 10, and 15 MV photons in 16 fractions to the left breast with a 3D conformal technique consisting of MONEGASQUE, LPO, and MONTERO carmen with field and field to improve dose homogeneity. A sequential boost consisting of 1000 cGy of mixed 10 and 15 MV photon in 4 fractions was delivered to the lumpectomy bed with a 3D conformal technique consisting of MONEGASQUE and LPO carmen. This brought the total dose delivered to 5256 cGy in 20 fractions. Patient was treated in the prone position to limit dose to the heart and lungs. Date of First Treatment: 10/13/2017 Date of Last Treatment: 11/10/2017 - Past Medical/Social History Past Medical History Past Medical History: Anxiety,Asthma,Breast problem,Depression, Headaches,Immunodeficiency,Pneumonia,Sleep apnea ,Thyroid disease,Neutropenia,Psychiatric disorder,Vitamin D deficiency Other Past Medical History: fatty liver Cancer: Breast cancer Past Surgical History Surgical: Lumpectomy Other Surgical History: WISDOM TEETH 2003 X 4 LEFT BREAST LUMPECTOMY 04/06/17 DEBRIDEMENT OF LEFT BREAST WOUND POST OP 08/03 Family History Paternal Past Medical History: Heart disease,Hyperlipidemia Maternal Past Medical History: Thyroid disease,Psychiatric disorder Social History Smoking Status Former smoker Review of Systems Constitutional:: Reports: Fatigue - Chronic unchanged. Denies: Fever, Sweats, Weight loss, Appetite change, Chills Cardiovascular:: Denies: Chest pain, Palpitations, Dyspnea on exertion, Orthopnea, PND, Shortness of breath Respiratory: Denies: Cough, Hemoptysis, Shortness of Breath, Wheezing Gastrointestinal:: Denies: Abdominal pain, Nausea, Vomiting, Diarrhea, Constipation, Hematochezia Genitourinary: Reports: - - Resumed menses but irregular, less frequent Had Pap smear and follows up with [facility]. Denies: Dysuria, Hematuria, Flank pain Musculoskeletal:: Reports: Back pain - Chronic unchanged. Denies: Myalgia, Arthralgia Skin: Denies: Rash, Skin Changes, Wounds Neurological:: Denies: Headache, Dizziness, Visual changes, Tinnitus, Hearing loss Psychiatric: Denies: Anxiety, Depression, Homicidal Ideations, Suicidal Ideations Comment: Breast wound healing Vital Signs Height 5 ft 8 in Weight: 105.233 kg Weight in Pounds 232.0 lbs BMI 36.4 Pulse Ox 98 - Physical Exam General: Alert, Oriented x3, No apparent distress, - - ECOG 1 Overweight HEENT: Atraumatic, PERRLA, EOMI, Normocephalic Oropharynx:: Dry mucosa Neck:: Supple, Trachea midline, - - Port okay. Negative for: JVD, bilateral Cardiac:: Regular rate, Regular rhythm, Normal S1, Normal S2. Negative for: Murmur Lungs: Clear to auscultation, Excusion symmetrical. Negative for: Rhonchi, Wheezes Abdomen:: Soft, Non-tender, Non-distended. Negative for: Hepatosplenomegaly Extremities:: Negative for: Cyanosis, Edema Neurological: Neuro grossly intact Skin:: Negative for: Lesions, Rash, Petechiae, Ecchymosis Psychiatric:: Appropriate affect, Euthymic Lymphatics:: Negative for: Cervical lymphadenopathy, Supraclavicular lymphadenopathy, Axillary lymphadenopathy Breast:: - - Not examined Laboratory Data: Reviewed in EMR Diagnostic Data: Last echo was December 2017 3 months follow-up echo to schedule an early March 2018 Assessment and Plan 32-year-old premenopausal female with invasive ductal cancer of the left breast stage I (T1c, N0, M0) high-grade G3, ER negative, KS weak positive, HER- 2 positive. Patient is status post partial mastectomy with sentinel lymph node biopsy April 06, 2017. She received adjuvant systemic chemotherapy with TCH May through August 2017, . Delays of treatment has occurred due to delayed wound healing, cytopenias and intercurrent illnesses (Febrile neutropenia, URTI, and dental infection) Started 1 year maintenance of Herceptin October 04, 2017. Received adjuvant radiation therapy September 2017 through October 2017. Started adjuvant Tamoxifen 11/15/2017, well-tolerated. Plan: 1. Continue with 1 year maintenance Herceptin. 2. Continue adjuvant hormonal therapy with tamoxifen . Patient is premenopausal at Dx. Treatment will be for 5-10 years depending on tolerance. 3. Monitoring of cardiac function with echo every 3 months next one due first week in March 2018. 4. Open wound following drainage of a suspected infected seroma, follow-up was Dr. Robertson. Impression and plan discussed with patient.. Follow-up in 3 weeks Primary Care Provider: Kaden Robles MD Referring Provider: 02/07/18 1426 <Electronically signed by Owen Edouard MD> Date Owen Edouard MD Cosigner Signature: Date (if applicable) CC: CBC W/DIFF, AUTOMATED Collected: 02/07/2018 Status: F Source: [place] 1:10 PM [facility] REPOSITORY Order Comment: Reason for Laboratory Test . TYPE CODE TESTS RESULT OUT OF RANGE REFERENCE UNITS LAB L100.1000 4.4-11.0 K/mm3 Normal WBC 4.9 LAB L100.1200 4.2-5.4 M/mm3 Low RBC 3.81 LAB L100.1300 12.0-15.0 g/dl Low HGB 10.7 LAB L100.1400 37-47 % Low HCT 32.3 LAB L100.1500 81-99 fL Normal MCV 84.8 LAB L100.1600 27.0-32.0 pg Normal MCH 28.1 LAB L100.1700 32-36 g/gl Normal MCHC 33.1 LAB L100.1810 11.6-14.6 % Normal RDW CV 13.3 LAB L100.1820 35.1-43.9 fl Normal RDW SD 40.5 LAB L100.1900 150-450 K/mm3 Normal PLT 150 LAB L100.2000 6.2-12.0 fl Normal MPV 8.0 LAB L100.2100 47-70 % High NEUT% 78.9 LAB L100.2200 19-41 % Low LY% 17.7 LAB L100.2300 0-10 % Normal MONO% 2.4 LAB L100.2400 0-5 % Normal EO% 0.6 LAB L100.2500 0-1 % Normal BASO% 0.2 LAB L100.2550 0.0-0.9 % Normal IM GRAN % 0.200 Result Comment: IG% - Immature Granulocytes (promyelocytes, myelocytes and metamyelocytes) > 1% indicates that a LEFT SHIFT is Present. LAB L100.2620 2.0-7.7 X10 3/uL Normal Absolute Neut 3.9 LAB L100.2720 0.83-4.51 X10 3/ul Normal Absolute Lymph 0.87 Performed By: #### L100.0100, L101.9900 #### [facility] [address] [place], [place], [id number] ERYTHROCYTE SED RATE Collected: 02/07/2018 Status: F Source: [place] 1:10 PM [facility] REPOSITORY Order Comment: Reason for Laboratory Test . TYPE CODE TESTS RESULT OUT OF RANGE REFERENCE UNITS LAB L102.0000 0-20 mm/hr Normal SED RATE 19 Performed By: #### L100.0100, L101.9900 #### [facility] [address] [place], [address] COMPREHENSIVE METABOLIC Collected: 02/07/2018 Status: F Source: [place] 1:10 PM [facility] REPOSITORY Order Comment: Reason for Laboratory Test . TYPE CODE TESTS RESULT OUT OF RANGE REFERENCE UNITS LAB L501.0100 74-106 mg/dL High GLU 139 Result Comment: Fasting Glucose result greater than or equal to 126 mg/dL suggests DIABETES MELLITUS per A.D.A. criteria. Please note revised GLUCOSE reference range effective 2017. LAB L501.1000 7-18 mg/dL Normal BUN 14 LAB L501.1100 0.55-1.02 mg/dL Normal CREAT,SERUM 1.01 Result Comment: The validity of the calculated GFR AND GFRAA in patients over 70 years has not been determined. Clinical correlation is essential. LAB L501.1110 >60 mL/min Normal EST GFR 67 Result Comment: Non- GFR Calc LAB L501.1115 >60 mL/min Normal EST GFR - AA 81 Result Comment: GFR Calc LAB L501.1255 ml/min Normal Estimated CRCL 79.92 LAB L501.1300 10-20 RATIO Normal BUN/CRE 13.9 LAB L501.1500 6.4-8. g/dL Normal 2 T PROT 7.4 LAB L501.1800 3.2-5. g/dL Normal 0 ALB 3.4 LAB L501.1950 2.2-4. g/dL Normal 2 GLOB 4.0 LAB L501.2000 0.9-2. RATIO Low 4 A/G 0.8 LAB L501.2200 8.5-10 mg/dL Normal .1 CA 9.1 LAB L501.4100 15-37 U/L Normal AST 25 LAB L501.4305 45-117 U/L High ALK P 119 LAB L501.4405 13-56 U/L Normal ALT 42 LAB L501.4600 0.20-1 mg/dL Normal .00 T BILI 0.40 LAB L501.5300 136-14 mmol/L Normal 5 NA 139 LAB L501.5600 3.5-5. mmol/L Normal 1 K 3.5 LAB L501.5900 98-107 mmol/L Normal CL 107 LAB L501.6100 21.0-3 mmol/L Normal 2.0 CO2 23.0 LAB L501.6200 5-15 Normal GAP 9 Performed By: #### L500.4050, L501.6710 #### [facility] [address] [place], [address] CRP Collected: 02/07/2018 Status: F Source: [place] 1:10 PM [facility] REPOSITORY Order Comment: Reason for Laboratory Test . TYPE CODE TESTS RESULT OUT OF RANGE REFERENCE UNITS LAB L501.6710 0.0-3.0 mg/L High 9.53 C-REACTIVE PROT Result Comment: C-Reactive Protein (CRP) provides useful information for the diagnosis, therapy and monitoring of inflammatory processes and associated diseases. For the evaluation of Relative Risk for Cardiovascular Disease, a High Sensitivity CRP (HSCRP) should be ordered. Performed By: #### L500.4050, L501.6710 #### [facility] [address] [place], [address] 12 LEAD ELECTROCARDIOGRAM Observed: 02/06/2018 Status: F Source: [place] 8:56 PM [facility] REPOSITORY [facility] Cardiovascular Services [address] [place] [id number] 12 Lead EKG 01/31/18 1729 MR#: [id number] Acct: [id number] Name: GAIL LACEY Rep #: [id number] : 1985 32 From: Evangelist Diaz MD Attending Dr: Status: DEP ER Ordering Dr: Francis Scott MD Date: 01/31/18 Location: ED Sex: F C Admitted: Test Reason : Blood Pressure : / mmHG Vent. Rate : 094 BPM Atrial Rate : 094 BPM P-R Int : 158 ms QRS Dur : 078 ms QT Int : 374 ms P-R-T Axes : 050 037 031 degrees QTc Int : 467 ms Normal sinus rhythm Nonspecific T wave abnormality Prolonged QT Abnormal ECG Confirmed by EVANGELIST DIAZ ([id number]), development editor BUZZ GALARZA ([id number]) on 02/03/2018 2:40:11 PM Referred By: CARMELINA Confirmed By:EVANGELIST DIAZ 02/03/18 1440 Date Evangelist Diaz MD CC: Kaden Robles MD; Francis Scott MD Signed OPERATIVE REPORT Observed: 02/02/2018 Status: F Source: [place] 2:20 PM [facility] REPOSITORY [facility] Medical Records Department [address] [place] [address] Operative Report 01/04/18 2152 MR#: [id number] Acct: [id number] Name: GAIL LACEY Rep #: [id number] : 1985 32 From: Jose Robertson MD PCP: Kaden Robles MD Status: DIS IN Y Location: MS2 [id number] Report of Operation Date of Procedure: 01/04/18 Pre-Operative Diagnosis: 1. Left breast cancer. 2. s/p lumpectomy with chemotherapy and radiation therapy. 3. Post-lumpectomy painful indentation scar contour deformity left lateral breast. 4. Late effect radiation left breast. 5. Disproportion reconstructed left breast. 6. Post-lumpectomy infected seroma left lateral breast. Post-Operative Diagnosis: Same. Surgery/Procedure Performed:: Revision left breast reconstruction with excision painful infected lateral radiation lumpectomy scar contour deformity with completion mastectomy. Description of Surgical Findings:: 32 year old woman presents with increasing pain in her left lateral breast after having undergone radiation therapy for breast cancer. She was first diagnosed with left breast cancer and underwent a lumpectomy and sentinel lymph node biopsy in 04/03. 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 She was started on IV chemotherapy with difficulties with pancytopenia and thrombocytopenia. It was noted that she had difficulty with the lumpectomy incision since the surgery. She developed a post-lumpectomy seroma ulcer that necessitated surgical intervention on 08/05/17 where she underwent surgical preparation left lateral breast with incision and drainage and excision nonhealing post-lumpectomy seroma ulcer with 9 cm complex secondary wound closure. It healed without issues initially. Operative culture showed Anaerobic cocci and she was treated with antibiotics. The incision has remained healed, but she has developed increasing pain in the area of the lateral incision and extending laterally onto the chest wall and axillary area. The symptomatology has worsened since the radiation was done. She states she has trouble taking care of her children because of the pain. She tries to take very little pain medication because she wants to be alert with her children. However it has started to affect her ability to get sleep at night secondary to the pain. I had discussed with her that she has increased edema from the radiation therapy which is aggravating the scar tissue on her chest wall from her previous seroma surgery. Because of the worsening pain, I am concerned about a possible infection in the area of the previous seroma surgery. She was admitted for IV antibiotics and an MRI was obtained which showed no abnormal enhancing masses or areas of non-mass enhancement in the left breast and no enlarged or abnormal lymph nodes. Operative intervention was recommended to debride the seroma cavity scar tissue and associated radiation fibrosis that is present that is aggravating her painful symptomatology. Depending on the size of the resultant cavity after the revision excision, if I feel that there will be healing issues or that the remaining breast tissue will start to develop firmness from the radiation effects, then I would proceed with completion mastectomy. This would be followed by post-discharge HBO treatments to help the healing process in preparation for further breast reconstruction surgery. The patient was informed of the risks and complications of the procedure including alternatives to surgery. These were discussed with her personally. She voices understanding and wishes to proceed. Size of the defect left breast - 10 x 22 x 6 cm. log raft worker: Jesus Olivera. Type of Anesthesia:: General Specimen's removed: Left breast tissue to Pathology and Microbiology. Drains: None. Estimated Blood Loss (mL): 200 ml. Description of Procedure: Patient was taken to OR in supine position and placed under general anesthesia. Her left breast was prepped and draped in the usual fashion. SCD's were placed for DVT prophylaxis. Perioperative antibiotics were given intravenously. Using xylocaine with epinephrine, her lateral lumpectomy scar was infiltrated. After waiting 5 minutes for the anesthetic to take effect, I excised this lumpectomy scar down into the breast tissue until the chest wall muscle was seen. There was dense fibrotic scar tissue present indicative of chronic scarring from the previous infected seroma excision and from the fibrosis developing from the radiation therapy. The area of painful palpation laterally in the axillary area was marked out preoperatively and was found to be located in the area of the dense chronic scarring on the chest wall musculature. This was excised as well until soft muscle remained. Hopefully this dense scarring was the reason for her pain in this area. After the first excision of this infected seroma cavity in 08/03, there was a large cavity that remained. Today after further excision of this infected seroma cavity scarring and radiation fibrosis, the cavity was much larger. It extended along the chest wall medial to the nipple area. It was felt that this separation of the breast tissue off the chest wall would compromise the blood supply to the breast tissue. There is also blood supply coming from the skin, but combined with the radiation therapy, I felt there would be compromised vascularity which would lead to increased and progressive firmness and pain in the remaining breast tissue. Therefore I felt that by leaving the breast tissue, she would have further problems that would lead to more surgeries. She had expressed to me that she wanted the least amount of surgeries possible even if it meant a completion mastectomy. Therefore I decided to proceed with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 in: none seatbelt use: always do you feel safe at home: Yes additional social history: SUN EXPOSURE: RARELY - [employer] Pregancy History 3 Elective abortions Hx Para 3 Spontaneous abortions Past Pregnancies Del. 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 FOB t n h a n HPI New annual, Breast Cancer: Details: GAIL LACEY is a 32 year old who presents for annual exam.on tamoxifen, having signficant depression symptoms- anger and irritability, feeling foggy and difficulty concentrating or remembering Last PAP: ordered History of abnormal PAP: Last mammogram: breast ca Colon cancer screening: yes Other preventative health care screenings: dr robles Female Reproductive History Last Menstral Period: 01/17/18 Cycle Length: 21-35 Control Method: vasectomy Questions: Metorrhagia: No, Sexually active: Yes, Dyspareunia: No, PCB: No Menopausal Symptoms: No hot flashes, No night sweats, No weight change, Yes mood changes, Yes difficulty concentrating, No sleep problems, No change in libido ROS Const Constitutional: Denies night sweats Cardio Card: Denies chest pain Resp Resp: Denies dyspnea or cough GI GI: Reports as per HPI; denies bloating, abdominal pain, constipation, vomiting or nausea : Denies hot flashes Psych Psych: Reports difficulty concentrating; denies change in sex drive Exam Const General: cooperative, healthy appearing, comfortable, no acute distress, well developed, well groomed [facility] Head: normal to inspection, normocephalic Ears: hearing grossly normal bilaterally, external ears normal Nose: external nose normal Face and sinus: normal facial exam Neck Neck: normal visual inspection, full ROM, no lymphadenopathy Thyroid: thyroid normal Resp Effort AND Inspection: normal respiratory effort GI Inspection: normal to inspection, non-distended Palpation: no guarding, soft, no hepatosplenomegaly General: bladder normal to palpation External Female Exam: normal external appearance, normal appearance of the urethra, no lesions Urethra: normal appearance of the urethra, normal palpation Speculum Exam - Vagina: normal appearance of the vagina, normal vaginal discharge Speculum Exam - Cervix: normal appearance of the cervix, no cervical discharge, no lesions, nontender Bimanual Exam- Vagina AND Uterus: No cervical tenderness, normal bimanual exam, uterine size normal, bladder normal to palpation, uterine mobility normal, uterine consistency normal, uterus non-tender, no cervical motion tenderness Bimanual Exam- Adnexa, other: normal adnexae, no adnexal masses, adnexae non-tender Skin General: no rashes or lesions noted Neuro General: alert, moves all extremities, no focal motor deficits Extrem General: no pedal edema, normal to inspection Psych Appearance: grossly normal Mental Status: mental status grossly normal Affect: normal affect Speech and Movement: speech and movement normal Attitude: cooperative Assessment AND Plan Problems 1. Encounter for gynecological examination with abnormal finding Z01.411 2. Screening for cervical cancer Z12.4 3. Dysthymia F34.1 Plan Cervical cancer screening: pap hpv Breast cancer screening: follows with oncology STD prevention and contraceptive options including their risks, benefits, and alternatives were reviewed with the patient and she chooses: patient struggling wiwth desires for future children but concerned with breast cancer recurrence Encouraged maintenance of a healthy weight and active lifestyle and handout given. Calcium/vitamin D recommendations provided. Annual exam handout including recommendations for good health guidelines and basic screening information given. Problem list up to date, see problem list details for any additional plan information. follow up in one year for annual health maintenance exam or sooner if needed. Medications Refilled: Coding Level of Care Code Off vis,est,prev 18-39yrs Diagnoses Encounter for gynecological examination with abnormal finding Z01.411 Gynecological examination findings: abnormal findings PRESENT Screening for cervical cancer Z12.4 Dysthymia F34.1 01/29/18 0116 <Electronically signed by Gini Alcala MD> Date Gini Alcala MD Cosigner Signature: Date (if applicable) CC: PAP IG HPV 16/18,45 Collected: 01/27/2018 Status: F Source: [place] 1:00 PM [facility] REPOSITORY Order Comment: CYTOLOGY INFORMATION: - CLINICAL INFORMATION: HYSTERECTOMY - DATE LMP/MENOPAUSE: LMP - COLLECTION VIAL: Thin Prep Vial - CRUCIBLE FURNACE TENDER SOURCE: CERVICAL - COLLECTION TECHNIQUE: CX BROOM ONLY Specimen Comment: [id number] Specimen Comment: No. of containers..01 ThinPrep Vial TYPE CODE TESTS RESULT OUT OF RANGE REFERENCE UNITS LAB L7400.0800 . Normal DIAGN Comment Result Comment: NEGATIVE FOR INTRAEPITHELIAL LESION AND MALIGNANCY. LAB L7400.0900 . Normal ADEQ Comment Result Comment: Satisfactory for evaluation. No endocervical cells are present. This is consistent with a history of hysterectomy. LAB L7400.1400 . Normal PERFORM Comment Result Comment: Karen Huerta, Vine Pruner (ASCP) LAB L7400.2575 . Normal TEST METHOD Comment Result Comment: This liquid based ThinPrep(R) pap test was screened with the use of an image guided system. LAB L7400.2600 . Normal . COMM LAB L7400.2700 . Normal PAPSMR Comment Result Comment: The Pap smear is a screening test designed to aid in the detection of premalignant and malignant conditions of the uterine cervix. It is not a diagnostic procedure and should not be used as the sole means of detecting cervical cancer. Both false-positive and false-negative reports do occur. LAB L7400.2760 Negative Normal HPV APTIMA, Negative HR Result Comment: This test detects fourteen high-risk HPV types (16/18/31/33/35/39/45/ 51/52/56/58/59/66/68) without differentiation. Performed at: WB - [facility] [address] [id number] Senior Application Programmer: Allison Pimentel MD, Phone: [phone] Performed at: =G - [facility] [address] [id number] Senior Application Programmer: Allison Pimentel MD, Phone: [phone] Performed By: #### L7400.0280 #### [facility] (refer to report for specific site) refer to report for address and phone number ERYTHROCYTE SED RATE Collected: 01/24/2018 Status: F Source: [place] 3:00 PM [facility] REPOSITORY TYPE CODE TESTS RESULT OUT OF RANGE REFERENCE UNITS LAB L102.0000 0-20 mm/hr High SED RATE 33 Performed By: #### L101.9900, L100.0500 #### [facility] [place] [place] [facility] [address] [place], [address] CBC-COMPLETE BLOOD CNT Collected: 01/24/2018 Status: F Source: [place] NO DIFF 3:00 PM [facility] REPOSITORY TYPE CODE TESTS RESULT OUT OF RANGE REFERENCE UNITS LAB L100.1000 4.4-11.0 K/mm3 Normal WBC 6.5 LAB L100.1200 4.2-5.4 M/mm3 Low RBC 3.79 LAB L100.1300 12.0-15.0 g/dl Low HGB 11.0 LAB L100.1400 37-47 % Low HCT 33.2 LAB L100.1500 81-99 fL Normal MCV 87.6 LAB L100.1600 27.0-32.0 pg Normal MCH 29.0 LAB L100.1700 32-36 g/gl Normal MCHC 33.1 LAB L100.1810 11.6-14.6 % Normal RDW CV 12.7 LAB L100.1820 35.1-43.9 fl Normal RDW SD 39.6 LAB L100.1900 150-450 K/mm3 Normal PLT 237 LAB L100.2000 6.2-12.0 fl Normal MPV 8.3 Performed By: #### L101.9900, L100.0500 #### [facility] [address] [place], [address] COMPREHENSIVE METABOLIC Collected: 01/24/2018 Status: F Source: [facility] 3:00 PM [facility] REPOSITORY TYPE CODE TESTS RESULT OUT OF RANGE REFERENCE UNITS LAB L501.0100 74-106 mg/dL High GLU 110 Result Comment: Fasting Glucose result from 100 to 125 mg/dL suggests IMPAIRED HOMEOSTASIS per A.D.A. criteria. Please note revised GLUCOSE reference range effective 2017. LAB L501.1000 7-18 mg/dL Normal BUN 13 LAB L501.1100 0.55-1.02 mg/dL Normal CREAT,SERUM 0.85 Result Comment: The validity of the calculated GFR AND GFRAA in patients over 70 years has not been determined. Clinical correlation is essential. LAB L501.1110 >60 mL/min Normal EST GFR 82 Result Comment: Non- GFR Calc LAB L501.1115 >60 mL/min Normal EST GFR - AA 99 Result Comment: GFR Calc LAB L501.1300 10-20 RATIO Normal BUN/CRE 15.3 LAB L501.1500 6.4-8.2 g/dL T Normal PROT 7.0 LAB L501.1800 3.2-5.0 g/dL Low ALB 3.0 LAB L501.1950 2.2-4.2 g/dL Normal GLOB 4.0 LAB L501.2000 0.9-2.4 RATIO Low A/G 0.8 LAB L501.2200 8.5-10.1 mg/dL CA Normal 8.7 LAB L501.4100 15-37 U/L Normal AST 25 LAB L501.4305 45-117 U/L High ALK P 124 LAB L501.4405 13-56 U/L High ALT 59 Result Comment: Please note revised ALT reference range effective 2017. LAB L501.4600 0.20-1.00 mg/dL Low T BILI 0.10 LAB L501.5300 136-145 mmol/L Normal NA 141 LAB L501.5600 3.5-5.1 mmol/L Normal K 3.6 LAB L501.5900 98-107 mmol/L Normal CL 105 LAB L501.6100 21.0-32.0 mmol/L Normal CO2 26.0 LAB L501.6200 5-15 Normal GAP 10 Performed By: #### L500.4050, L501.6710 #### [facility] [address] [place] [address], [address] CRP Collected: 01/24/2018 Status: F Source: [place] 3:00 PM [facility] REPOSITORY TYPE CODE TESTS RESULT OUT OF RANGE REFERENCE UNITS LAB L501.6710 0.0-3.0 mg/L High 39.80 C-REACTIVE PROT Result Comment: C-Reactive Protein (CRP) provides useful information for the diagnosis, therapy and monitoring of inflammatory processes and associated diseases. For the evaluation of Relative Risk for Cardiovascular Disease, a High Sensitivity CRP (HSCRP) should be ordered. Performed By: #### L500.4050, L501.6710 #### [facility] [address] [place], [address] DISCHARGE SUMMARY Observed: 01/20/2018 Status: F Source: [place] 7:57 AM [facility] REPOSITORY [facility] Medical Records Department [address] [place] [id number] Discharge Summary 01/17/18 1427 MR#: [id number] Acct: [id number] Name: GAIL LACEY Rep #: [id number] : 1985 32 From: Jose Robertson MD PCP: Kaden Robles MD Status: DIS IN Y Location: MS3 [id number] Discharge Date and Diagnosis Date of Admission: 01/13/18 Date of Discharge: 01/17/18 - Primary Discharge Diagnosis Left breast mastectomy wound infection. Late effect radiation left breast. Left breast cancer. Anemia of chronic disease, acute on chronic. - Secondary Discharge Diagnosis Post-lumpectomy painful indentation scar contour deformity left lateral breast. s/p lumpectomy with chemotherapy and radiation therapy. Disproportion reconstructed left breast. Post-lumpectomy infected seroma left lateral breast. Intermittent epigastric abdominal pain Fatty liver STEVE (obstructive sleep apnea) Chronic back pain Hypothyroidism Narcolepsy Anxiety and depression Hospital Course and Treatment Imaging Results: Diagnostic Data Chest X-Ray 01/13/18 16:05 IMPRESSION: No acute cardiopulmonary findings. Prior atelectatic changes have resolved with no new area of focal consolidation, substantial atelectasis or pleural effusion. Right subclavian catheter remains ending at the atriocaval junction. Obvious soft tissue deformity of the lateral margin of the left breast with overlying drainage catheter. Electronically Signed: Cici Rosario MD at 16:42 EDT , Service support , CONSULTATIONS Dr. Edouard from Oncology. Hospitalist Group - Dr. Kapadia and Dr. Gomez and Dr. Villar. Operations: None Procedures: Blood transfusion Summary of Care Provided: The patient is a 32 year old F who had surgery on 01/04/18 where she underwent revision left breast reconstruction with excision painful infected lateral radiation lumpectomy scar contour deformity with completion mastectomy. The VAC was applied after surgery. Wound culture showed Staphylococcus aureus. She was discharged home on Augmentin. Later on at the [facility], she was being evaluated for HBO treatments, and the antibiotics were changed to Doxycycline. Earlier today she called complaining of increasing pain in her left breast wound as well as increasing temperature and increasing heart rate. She went to the ED for evaluation. She was started on Vancomycin. Her Pulse was 138. Her Temperature was 100.3. She is being admitted for IV antibiotics because she has failed outpatient therapy. We started Vancomycin and Zosyn. Cefepime was added. When the wound culture came back, it showed Acinetobacter radioresistens and Staphylococcus species. MRSA DNA PCR was negative. The Acinetobacter is sensitive to Ceftriaxone. So will stop the Cefepime and Zosyn. She has a port. Will be discharged on IV antibiotics with Ceftriaxone. May need to add an antibiotic once the Staphylococcus species is identified. Also waiting on Anaerobic culture as well which may also require an antibiotic. Will remove the VAC and place it on hold. Will start daily dressing changes with Aquacel Silver. Will culture the wound as well. Will consult the Hospitalist Service to assist with medical management. Her thyroid levels were off since she stopped taking her meds when she started chemotherapy. Her thyroid medication was resumed. Will check further levels as an outpatient. Oncology with Dr. Edouard was consulted to give Herceptin while hospitalized to maintain her schedule. She tolerated the daily dressing changes with Aquacel Silver with IV analgesia initially and then finally with po analgesia. VAC on hold for now. May resume the VAC at the [facility]. Her initial Hgb was 10.6 and it decreased to 7.6, most likely from anemia of chronic disease and IV dilution. She received 2 units PRBC and her Hg was stable at 8.4 at discharge. There was no acute source of ongoing blood loss during her hospital stay. Iron supplementation has been started and will be continued after discharge. She states she has had epigastric discomfort since taking her Tamoxifen. She has seen Dr. Moseley who is planning endoscopy as an outpatient. Their office will set that up in the next couple of weeks. Protonix was started and will be continued after discharge. Prealbumin is low at 12.0. Encourage nutritional supplementation with protein to help the healing process. When it was decided which antibiotic to send her home on (Ceftriaxone) and she was tolerating the Silver dressing changes reasonably well on po analgesia, she was discharged home on hospital day #5. Followup at Wound Center next week on 01/24/18. She was initially evaluated there for HBO treatments secondary to the radiation. However I was told that HBO cannot be given at this time since the radiation therapy was recently given. The recommendation is to wait 6 months after radiation therapy before proceeding with HBO. Her radiation therapy was completed in October. Will determine when to restart the VAC as an outpatient. Wrote scripts for Percocet for pain (60 tabs) and for Valium for spasm (30 tabs) and for Duragesic Patch, 50mcg, for pain (5 patches). Wrote script for Ceftriaxone IV for 6 weeks. Home Health to check labs weekly (CBC, CMP, ESR, CRP). Wrote scripts for Iron supplements, Protonix, Phenergan, and Colace. Condition upon discharge is stable. Discharge Diet: No Restrictions, - - encourage nutritional supplementation with protein to help the healing process. Discharge Activity: Return to Normal Activity, May not drive while taking narcotic pain medications., May Shower - at the time of the dressing change. May shower in (days): 1 - may shower at the time of the dressing change. May resume sexual activity in: No Restrictions, 6 weeks Weight Bearing Status: Weight bearing as tolerated Lifting Restrict to (lbs):: 20 - with left arm. Keep extremity elevated above heart level: Left Arm Call your doctor if your incision/area has: Continuous Slow Oozing, Sudden Increased Bleeding, Increased Pain/ Swelling, Increased Redness, Foul Smelling Discharge, Swelling at the incision site Call your doctor if you observe: Fever of 101 or Higher, Coldness, Increased Pain, Shortness of breath, Chest pain, Calf discomfort, Uncontrolled pain Suture Line Care: - - daily wound care to left breast mastectomy wound with Aquacel silver and moistened kerlix gauze. Change Dressing in (Days):: 1 - daily dressing change with Aquacel Silver and moistened kerlix gauze. Cleanse incision/area with: Soap AND Water - may cleanse the wound with soap and water at the time of the dressing change., - - may shower at the time of the dressing change. Additional Dressing/Incision Instructions:: Home Health to assist with daily dressing changes to the left breast mastectomy wound with Aquacel Silver and moistened kerlix gauze. Home Medications: Medications to take at Discharge Tamoxifen Citrate [Nolvadex] 20 mg PO QHS 01/03/18 Vitamin E 400 unit PO QHS 01/03/18 Gabapentin [Neurontin] 300 mg PO TIDCM 30 Days #90 cap 01/06/18 proMETHazine tablet [Phenergan tablet] 25 mg PO 4X/DAY PRN PRN #30 tab 01/06/18 Fentanyl 50 mcg TD Q3D 01/13/18 Pentoxifylline [Trental] 400 mg PO TID 01/13/18 0.9 % Sodium Chloride [Saline Wound Wash] 210 ml MC .QDAILY #6 bottle 01/17/18 Albuterol Aerosols [Ventolin Aerosols] 2.5 mg INHALATION Q2H PRN PRN vial.neb. 01/17/18 Ceftriaxone 2 gm IV Q24 40 Days #40 vial 01/17/18 Diazepam [Valium] 5 mg PO 4X/DAY PRN PRN #30 tab 01/17/18 Docusate Sodium [Colace] 100 mg PO BID #30 cap 01/17/18 Gauze Bandage [Bandage Roll] 2 ea TP .QDAILY #60 bandage 01/17/18 Iron Polysaccharide Complex [Ferrex 150] 150 mg PO DAILYCM #30 cap 01/17/18 Levothyroxine [Synthroid] 150 mcg PO DAILY@0600 tablet 01/17/18 Liothyronine Sodium [Cytomel] 5 mcg PO DAILY tablet 01/17/18 Oxycodone HCl/Acetaminophen [Percocet 5-325] 5 - 325 mg PO .4x/day prn PRN 7 Days #60 tab 01/17/18 Pantoprazole Sodium [Protonix] 40 mg PO DAILY #30 tab 01/17/18 Silver/Hydrocolloid Dressing [Aquacel-Ag W-Hydrofiber Dress] 1 ea TP .QDAILY #30 bandage 01/17/18 fentaNYL patch [Duragesic patch] 50 mcg TRANSDERM. Q3D #5 patch 01/17/18 proMETHazine tablet [Phenergan tablet] 25 mg PO 4X/DAY PRN PRN #30 tab 01/17/18 Following Prescrptions Were Given to Patient: 0.9 % Sodium Chloride [Saline Wound Wash] 210 ml MC .QDAILY #6 bottle Ceftriaxone 2 gm IV Q24 40 Days #40 vial Diazepam [Valium] 5 mg PO 4X/DAY PRN PRN #30 tab PRN Reason: Anxiety fentaNYL patch [Duragesic patch] 50 mcg TRANSDERM. Q3D #5 patch Gauze Bandage [Bandage Roll] 2 ea TP .QDAILY #60 bandage Iron Polysaccharide Complex [Ferrex 150] 150 mg PO DAILYCM #30 cap Oxycodone HCl/Acetaminophen [Percocet 5-325] 5 - 325 mg PO .4x/day prn PRN 7 Days #60 tab PRN Reason: Pain Pantoprazole Sodium [Protonix] 40 mg PO DAILY #30 tab proMETHazine tablet [Phenergan tablet] 25 mg PO 4X/DAY PRN PRN #30 tab PRN Reason: NAUSEA/VOMITING Silver/Hydrocolloid Dressing [Aquacel-Ag W-Hydrofiber Dress] 1 ea TP .QDAILY #30 bandage Docusate Sodium [Colace] 100 mg PO BID #30 cap Primary Care Physician: Kaden Robles MD [Primary Care Provider] - Please Follow Up With: Jose Robertson MD - call [phone] if any questions. When: Wednesday01/24/18 at wound center at 1000am. Please Follow Up With: Evangelist Moseley MD - call [phone] to set that up. When: couple of weeks to schedule endoscopy. Additional Instructions: Home Health to draw CBC, CMP, ESR, CRP qMonday. Please fax results to the Wound Center at [phone]. Disposition: Home with Home Health Minutes spent on discharge:: 40 Patient Condition:: Stable Medical Necessity - Tobacco Use Smoking Status: Former smoker Tobacco Use: Non-smoker Meaningful Use Info Meaningful Use Diagnoses (Choose all that apply): None applicable 01/20/18 0757 <Electronically signed by Jose Robertson MD> Date Jose Robertson MD Cosigner Signature (if applicable): Date CC: Mily Villar MD; Kaden Robles MD; Jillian Kapadia; Evangelist Moseley MD; Jose Robertson MD; Owen Edouard MD; Albert Gomez MD; Devon Xiong DO; [facility] Signed DISCHARGE INSTRUCTION Observed: 01/17/2018 Status: F Source: [place] 5:07 PM [facility] REPOSITORY [facility] Medical Records Department [address] [place] [place] [address] Instructions for Home/Discharge Instructions 01/17/18 1649 MR#: [id number] Acct: [id number] Name: GAIL LACEY Rep #: [id number] : 1985 32 From: Jose Robertson MD PCP: Kaden Robles MD Status: ADM IN - Discharge Diagnoses Current Active Problems: Current Active and Chronic Problems (Last Reviewed 12/27/17 @ 11:54 by Mile Healy) Wound infection (Acute) You will use the following diet at home:: No restrictions, Other - encourage nutritional supplementation with protein to help the healing process. Discharge Activity: Return to Normal Activity, May not drive while taking narcotic pain medications., May Shower - at the time of the dressing change. May shower in (days): 1 - may shower at the time of the dressing change. May resume sexual activity in: No Restrictions Weight Bearing Status: Weight bearing as tolerated Lifting Restrictions: 20 lbs with left arm. Keep extremity elevated above heart level: Left Arm Call your doctor if your incision/area has: Continuous Slow Oozing, Sudden Increased Bleeding, Increased Pain/ Swelling, Increased Redness, Foul Smelling Discharge, Swelling at the incision site Call your doctor if you observe: Fever of 101 or Higher, Coldness, Increased Pain, Shortness of breath, Chest pain, Calf discomfort, Uncontrolled pain Suture Line Care: - - daily wound care to left breast mastectomy wound with Aquacel silver and moistened kerlix gauze. Change Dressing in (Days):: 1 - daily dressing change with Aquacel Silver and moistened kerlix gauze. Cleanse incision/area with: Soap AND Water - may cleanse the wound with soap and water at the time of the dressing change., - - may shower at the time of the dressing change. Additional Dressing/Incision Instructions:: Home Health to assist with daily dressing changes to the left breast mastectomy wound with Aquacel Silver and moistened kerlix gauze. Allergies/Adverse Reactions: Allergies hydromorphone [From Dilaudid] Allergy (Severe, Verified 01/13/18 15:45) Laryngospasms morphine Allergy (Severe, Verified 01/13/18 15:45) chest tightening TAPE Adverse Reaction (Mild, Uncoded 01/13/18 15:45) Other Medications to take at Discharge Tamoxifen Citrate [Nolvadex] 20 mg PO QHS 01/03/18 Vitamin E 400 unit PO QHS 01/03/18 Gabapentin [Neurontin] 300 mg PO TIDCM 30 Days #90 cap 01/06/18 proMETHazine tablet [Phenergan tablet] 25 mg PO 4X/DAY PRN PRN #30 tab 01/06/18 Fentanyl 50 mcg TD Q3D 01/13/18 Pentoxifylline [Trental] 400 mg PO TID 01/13/18 0.9 % Sodium Chloride [Saline Wound Wash] 210 ml MC .QDAILY #6 bottle 01/17/18 Albuterol Aerosols [Ventolin Aerosols] 2.5 mg INHALATION Q2H PRN PRN vial.neb. 01/17/18 Ceftriaxone 2 gm IV Q24 40 Days #40 vial 01/17/18 Diazepam [Valium] 5 mg PO 4X/DAY PRN PRN #30 tab 01/17/18 Docusate Sodium [Colace] 100 mg PO BID #30 cap 01/17/18 Gauze Bandage [Bandage Roll] 2 ea TP .QDAILY #60 bandage 01/17/18 Iron Polysaccharide Complex [Ferrex 150] 150 mg PO DAILYCM #30 cap 01/17/18 Levothyroxine [Synthroid] 150 mcg PO DAILY@0600 tablet 01/17/18 Liothyronine Sodium [Cytomel] 5 mcg PO DAILY tablet 01/17/18 Oxycodone HCl/Acetaminophen [Percocet 5-325] 5 - 325 mg PO .4x/day prn PRN 7 Days #60 tab 01/17/18 Pantoprazole Sodium [Protonix] 40 mg PO DAILY #30 tab 01/17/18 Silver/Hydrocolloid Dressing [Aquacel-Ag W-Hydrofiber Dress] 1 ea TP .QDAILY #30 bandage 01/17/18 fentaNYL patch [Duragesic patch] 50 mcg TRANSDERM. Q3D #5 patch 01/17/18 proMETHazine tablet [Phenergan tablet] 25 mg PO 4X/DAY PRN PRN #30 tab 01/17/18 The following prescriptions were given: 0.9 % Sodium Chloride [Saline Wound Wash] 210 ml MC .QDAILY #6 bottle Ceftriaxone 2 gm IV Q24 40 Days #40 vial Diazepam [Valium] 5 mg PO 4X/DAY PRN PRN #30 tab PRN Reason: Anxiety fentaNYL patch [Duragesic patch] 50 mcg TRANSDERM. Q3D #5 patch Gauze Bandage [Bandage Roll] 2 ea TP .QDAILY #60 bandage Iron Polysaccharide Complex [Ferrex 150] 150 mg PO DAILYCM #30 cap Oxycodone HCl/Acetaminophen [Percocet 5-325] 5 - 325 mg PO .4x/day prn PRN 7 Days #60 tab PRN Reason: Pain Pantoprazole Sodium [Protonix] 40 mg PO DAILY #30 tab proMETHazine tablet [Phenergan tablet] 25 mg PO 4X/DAY PRN PRN #30 tab PRN Reason: NAUSEA/VOMITING Silver/Hydrocolloid Dressing [Aquacel-Ag W-Hydrofiber Dress] 1 ea TP .QDAILY #30 bandage Docusate Sodium [Colace] 100 mg PO BID #30 cap Primary Care Physician: Kaden Robles MD [Primary Care Provider] - Please Follow Up With: Jose Robertson MD - call [phone] if any questions. When: Wednesday01/24/18 at wound center at 1000am. Please Follow Up With: Evangelist Moseley MD - call [phone] to set that up. When: couple of weeks to schedule endoscopy. Proposed Discharge Date: 01/17/18 01/17/181706 <Electronically signed by Jose Robertson MD> Date Jose Robertson MD CC: Kaden Robles MD; Evangelist Moseley MD; Owen Edouard MD; Devon Xiong DO; [facility] CONSULTATION Observed: 01/17/2018 Status: F Source: [place] 9:46 AM [facility] REPOSITORY [facility] Medical Records Department [address] [place] [address] Consultation 01/17/18 0934 MR#: [id number] Acct: [id number] Name: GAIL LACEY Rep #: [id number] : 1985 32 From: Owen Edouard MD PCP: Kaden Robles MD Status: ADM IN Y Location: MS3 BP194-5 - Problem List (1) Cancer of left female breast Status: Chronic Qualifiers: Estrogen receptor status: positive Consult Referring Physician: Jose Robertson MD Consult Results: Breast cancer on adjuvant treatment Subjective Date of Service:: 01/17/18 Chief Complaint: LEFT BREAST PAIN History of Present Illness: Patient is a 32-year-old female hospitalized with suspected infected left breast lumpectomy seroma presenting with persistent pain. She is now status post surgical drainage in December 2017 and is on antibiotics. Her oncologic history is as follows: She's a premenopausal female who presented with an abnormal left nipple discharge, February 2017 a diagnostic mammogram followed by an ultrasound showed an abnormality that was confirmed on biopsy on March 16 to represent an invasive ductal cancer. On April 06, 2017 the patient underwent a left partial mastectomy with sentinel lymph node biopsy with a final pathology showing an infiltrating ductal carcinoma measuring 1.2 cm in maximum diameter poorly differentiated, grade 3, ER negative, KS weak positive, Her- 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 Margins were negative for both invasive and noninvasive cancer. Patient started systemic adjuvant therapy under the care of in [facility] on May 18, 2017 where she received 3 cycles of treatment then transferred to [facility] to be close to home. She experienced delays due to pancytopenia especially thrombocytopenia. Starting with her third cycle she required growth factor support. During her infusions she experienced infusion related reactions including shortness of breath flushing back pain that required premedication with H1, H2, steroid medication and slowing down the infusion rate to several hours. She also experienced side effects of hair loss, abnormal taste, mouth sores, bony pains with growth factor use. Pretreatment cardiac evaluation was by echo that reportedly showed an normal LVEF of 60%. Pre-adjuvant chemotherapy evaluation also included a brain MRI due to history of headaches that showed no evidence of metastatic disease and abnormal liver functions that showed fatty liver. Reportedly patient was offered fertility preservation consultation prior to therapy but she declined. Her had vasectomies, pretreatment test was negative and she reports no menses Since May 2017. She reported that her wound healing was protracted. Treatment: - [facility] X6 cycles -08/2017- (delays due to delayed wound healing, cytopenias and febrile neutropenia). - Herceptin maintenance 10/04/2017 - Tamoxifen 11/15/2017- Adjuvant radiation therapy; 4256 cGy of mixed 6, 10, and 15 MV photons in 16 fractions to the left breast with a 3D conformal technique consisting of MONEGASQUE, LPO, and MONTERO carmen with field and field to improve dose homogeneity. A sequential boost consisting of 1000 cGy of mixed 10 and 15 MV photon in 4 fractions was delivered to the lumpectomy bed with a 3D conformal technique consisting of MONEGASQUE and LPO carmen. This brought the total dose delivered to 5256 cGy in 20 fractions. Patient was treated in the prone position to limit dose to the heart and lungs. Date of First Treatment: 10/13/2017 Date of Last Treatment: 11/10/2017 Past Medical History: Chronic Problems (Last Reviewed 12/27/17 @ 11:54 by Mile Healy) Intermittent epigastric abdominal pain (Chronic) Personal history of malignant neoplasm of breast (Chronic) Cancer of left female breast (Chronic) Fatty liver (Chronic) STEVE (obstructive sleep apnea) (Chronic) Chronic back pain (Chronic) Hypothyroidism (Chronic) Narcolepsy (Chronic) Anxiety and depression (Chronic) Past Medical/Surgical History: Past Medical History (Last Reviewed 12/27/17 @ 11:54 by Mile Healy) Anxiety (Acute) Asthma (Acute) BLADDER/URINARY TRACT INFECTION (Acute) Breast cancer (Acute) Carpal tunnel syndrome (Acute) Depression (Acute) Headache (Acute) Hives (Acute) Immunodeficiency (Acute) NEUROPATHY AFTER ARM SURGERY (Acute) NON HEALING POST- LUMPECTOMY SEROMA ULCER LEFT BREAST (Acute) Neutropenia (Acute) Pneumonia (Acute) Polycystic ovary (Acute) Psychiatric disorder (Acute) Sleep apnea (Acute) Thyroid disease (Acute) Vitamin D deficiency (Acute) med port placement (Acute) Past Surgical History (Last Reviewed 12/27/17 @ 11:54 by Mile Healy) HOSPITAL FEBRILE NEUTROPENIA DISCHARGED 07/14/2017 (Acute) History of lumpectomy (Acute) History of partial mastectomy of left breast (Acute 03/2017) PORT PLACEMENT (Acute 04/2017) Plantar wart (Acute 2007) SURGICAL PREPARATION LEFT LATERAL BREAST (Acute) [place] teeth extracted (Acute) Maternal Family History: Family History (Last Reviewed 12/27/17 @ 11:54 by Mile Healy) Mother Psychiatric disorder Thyroid disorder Father Hyperlipidemia Hypertension Father Heart disease Aunt Seizures Grandmother Cancer Colon cancer Grandfather Diabetes Heart disease Family History: - - Thyroid disease, psychiatric disorder. Paternal Family History: Family History (Last Reviewed 12/27/17 @ 11:54 by Mile Healy) Mother Psychiatric disorder Thyroid disorder Father Hyperlipidemia Hypertension Father Heart disease Aunt Seizures Grandmother Cancer Colon cancer Grandfather Diabetes Heart disease Family History: Heart Disease, Hypertension - Social History Lives: Spouse/ Significant Other Smoking Status: Former smoker Tobacco Use: Non-smoker Alcohol: None Drugs: None Allergies/Adverse Reactions: Allergy/AdvReac Type Severity Reaction Status Date / Time hydromorphone [From Dilaudid] Allergy Severe Laryngospas Verified 01/13/18 15:45 Home Medications Medication Instructions Recorded Tamoxifen Citrate [Nolvadex] 20 mg PO QHS 01/03/18 Review of Systems Constitutional:: Reports: Weakness, Fatigue, Fever - As had low-grade fevers. Denies: Sweats, Weight loss, Appetite change, Chills Cardiovascular:: Denies: Chest pain, Palpitations, Dyspnea on exertion, Orthopnea, PND, Shortness of breath Respiratory: Denies: Cough, Hemoptysis, Shortness of Breath, Wheezing Gastrointestinal:: Denies: Abdominal pain, Nausea, Vomiting, Diarrhea, Constipation, Hematochezia Genitourinary: Denies: Dysuria, Hematuria, 15, Flank pain Musculoskeletal:: Reports: Back pain - Chronic predates cancer diagnosis. Denies: Myalgia, Arthralgia Skin: Denies: Rash, Skin Changes, Wounds Neurological:: Denies: Headache, Dizziness, Visual changes, Tinnitus, Hearing loss Psychiatric: Denies: Anxiety, Depression, Homicidal Ideations, Suicidal Ideations Comment: Left breast surgical wound open Vital Signs Height 5 ft 8 in Weight: 103.3 kg Weight in Pounds 227.7 lbs Pulse Ox 99 - Physical Exam General: Alert, Oriented x3, No apparent distress, - - Obese ECOG 1 Mildly pale HEENT: Atraumatic, PERRLA, EOMI, Normocephalic, - - No thrush Oropharynx:: Dry mucosa Neck:: Supple, Trachea midline, - - Port okay. Negative for: JVD, bilateral Cardiac:: Regular rate, Regular rhythm, Normal S1, Normal S2. Negative for: Murmur Lungs: Clear to auscultation, Excusion symmetrical. Negative for: Rhonchi, Wheezes Abdomen:: Soft, Non-tender, Non-distended. Negative for: Hepatosplenomegaly Extremities:: Negative for: Cyanosis, Edema Neurological: Neuro grossly intact Skin:: Negative for: Lesions, Rash, Petechiae, Ecchymosis Psychiatric:: Appropriate affect, Euthymic Lymphatics:: Negative for: Cervical lymphadenopathy, Supraclavicular lymphadenopathy, Axillary lymphadenopathy Laboratory Data: Microbiology 01/13/18 23:10 Gram Stain - Final Wound - Aerobic AND Anaerobic Swabs Wound Culture - Preliminary Laboratory Tests WBC 5.5 (4.4-11.0) K/mm3 Diagnostic Data: Diagnostic Data Chest X-Ray 01/13/18 16:05 IMPRESSION: No acute cardiopulmonary findings. Prior atelectatic changes have resolved with no new area of focal consolidation, substantial atelectasis or pleural effusion. Right subclavian catheter remains ending at the atriocaval junction. Obvious soft tissue deformity of the lateral margin of the left breast with overlying drainage catheter. Electronically Signed: Cici Rosario MD at 16:42 EDT , Service support , Assessment and Plan 32-year-old premenopausal female with invasive ductal cancer of the left breast stage I (T1c, N0, M0) high-grade G3, ER negative, KS weak positive, HER- 2 positive. Patient is status post partial mastectomy with sentinel lymph node biopsy April 06, 2017. She received adjuvant systemic chemotherapy with TC May through August 2017, . Delays of treatment has occurred due to delayed wound healing, cytopenias and intercurrent illnesses (Febrile neutropenia, URTI, and dental infection) Started 1 year maintenance of Herceptin October 04, 2017. Received adjuvant radiation therapy September 2017 through October 2017. Started adjuvant Tamoxifen 11/15/2017, well-tolerated. Hospitalized December 2017 was persistent pain in the left lumpectomy area and suspected infected seroma status post surgical drainage and is on antibiotics. Plan: From the medical oncology aspect of management 1. Continue with 1 year maintenance Herceptin. Due for Herceptin today which she will receive prior to discharge on home antibiotics 2. Continue adjuvant hormonal therapy with tamoxifen . Patient is premenopausal at Dx. Treatment will be for 5-10 years depending on tolerance. 3. Monitoring of cardiac function with echo every 3 months next one due first week in March 2018. Impression and plan discussed with patient and Dr. Robertson Follow-up in 3 weeks Medications: Prescriptions This Visit Medication Instructions Recorded Docusate Sodium [Colace] 100 mg PO BID 01/13/18 Doxycycline Hyclate [Doxycycline 100 mg PO BID 01/13/18 Medications Added to Medication List This Visit Ceftriaxone 2 gm Med 01/17/18 10:00 Active 0.9% Normal Saline 50 ml IV Q24 Primary Care Provider: Kaden Robles MD Referring Provider: 01/17/18 0946 <Electronically signed by Owen Edouard MD> Date Owen Edouard MD Cosigner Signature (if applicable): Date CC: Kaden Robles MD; Owen Edouard MD Signed COMPREHENSIVE METABOLIC Collected: 01/17/2018 Status: F Source: [place] JARRE[place] 5:34 AM [facility] REPOSITORY Order Comment: SPECIMEN OBTAINED FROM LINE DRAW TYPE CODE TESTS RESULT OUT OF RANGE REFERENCE UNITS LAB L501.0100 74-106 mg/dL Normal GLU 96 Result Comment: Please note revised GLUCOSE reference range effective 2017. LAB L501.1000 7-18 mg/dL Normal BUN 9 LAB L501.1100 0.55-1.02 mg/dL Normal CREAT,SERUM 0.84 Result Comment: The validity of the calculated GFR AND GFRAA in patients over 70 years has not been determined. Clinical correlation is essential. LAB L501.1110 >60 mL/min Normal EST GFR 82 Result Comment: Non- GFR Calc LAB L501.1115 >60 mL/min Normal EST GFR - AA 99 Result Comment: GFR Calc LAB L501.1255 ml/min Normal Estimated CRCL 96.09 LAB L501.1300 10-20 RATIO Normal BUN/CRE 10.7 LAB L501.1500 6.4-8. g/dL Low 2 T PROT 5.5 LAB L501.1800 3.2-5. g/dL Low 0 ALB 2.1 LAB L501.1950 2.2-4. g/dL Normal 2 GLOB 3.4 LAB L501.2000 0.9-2. RATIO Low 4 A/G 0.6 LAB L501.2200 8.5-10 mg/dL Low .1 CA 8.1 LAB L501.4100 15-37 U/L High AST 49 LAB L501.4305 45-117 U/L Normal ALK P 105 LAB L501.4405 13-56 U/L High ALT 119 Result Comment: Please note revised ALT reference range effective 2017. LAB L501.4600 0.20-1.00 mg/dL Normal T BILI 0.40 LAB L501.5300 136-145 mmol/L Normal NA 140 LAB L501.5600 3.5-5.1 mmol/L Normal K 3.7 LAB L501.5900 98-107 mmol/L Normal CL 107 LAB L501.6100 21.0-32.0 mmol/L Normal CO2 26.0 LAB L501.6200 5-15 Normal GAP 7 Performed By: #### L500.4050, L501.6710, L100.0500, L101.9900 #### [facility] [address] [place], [place], [id number] CRP Collected: 01/17/2018 Status: F Source: [place] 5:34 AM [facility] REPOSITORY Order Comment: SPECIMEN OBTAINED FROM LINE DRAW TYPE CODE TESTS RESULT OUT OF RANGE REFERENCE UNITS LAB L501.6710 0.0-3.0 mg/L High 102.00 C-REACTIVE PROT Result Comment: C-Reactive Protein (CRP) provides useful information for the diagnosis, therapy and monitoring of inflammatory processes and associated diseases. For the evaluation of Relative Risk for Cardiovascular Disease, a High Sensitivity CRP (HSCRP) should be ordered. Performed By: #### L500.4050, L501.6710, L100.0500, L101.9900 #### [facility] [address] [place], [place], [id number] CBC-COMPLETE BLOOD CNT Collected: 01/17/2018 Status: F Source: [place] NO DIFF 5:34 AM [facility] REPOSITORY Order Comment: SPECIMEN OBTAINED FROM LINE DRAW TYPE CODE TESTS RESULT OUT OF RANGE REFERENCE UNITS LAB L100.1000 4.4-11.0 K/mm3 Normal WBC 5.5 LAB L100.1200 4.2-5.4 M/mm3 Low RBC 2.84 LAB L100.1300 12.0-15.0 g/dl Low HGB 8.4 LAB L100.1400 37-47 % Low HCT 25.4 LAB L100.1500 81-99 fL Normal MCV 89.4 LAB L100.1600 27.0-32.0 pg Normal MCH 29.6 LAB L100.1700 32-36 g/gl Normal MCHC 33.1 LAB L100.1810 11.6-14.6 % Normal RDW CV 13.2 LAB L100.1820 35.1-43.9 fl Normal RDW SD 41.2 LAB L100.1900 150-450 K/mm3 Normal PLT 204 LAB L100.2000 6.2-12.0 fl Normal MPV 7.8 Performed By: #### L500.4050, L501.6710, L100.0500, L101.9900 #### [facility] [address] [place], [place], [id number] ERYTHROCYTE SED RATE Collected: 01/17/2018 Status: F Source: [place] 5:34 AM [facility] REPOSITORY Order Comment: SPECIMEN OBTAINED FROM LINE DRAW TYPE CODE TESTS RESULT OUT OF RANGE REFERENCE UNITS LAB L102.0000 0-20 mm/hr High SED RATE 22 Performed By: #### L500.4050, L501.6710, L100.0500, L101.9900 #### [facility] [address] [place], [place], [id number] CBC W/DIFF, AUTOMATED Collected: 01/16/2018 Status: F Source: [place] 5:05 AM [facility] REPOSITORY Order Comment: SPECIMEN OBTAINED FROM LINE DRAW TYPE CODE TESTS RESULT OUT OF RANGE REFERENCE UNITS LAB L100.1000 4.4-11.0 K/mm3 Normal WBC 5.7 LAB L100.1200 4.2-5.4 M/mm3 Low RBC 2.95 LAB L100.1300 12.0-15.0 g/dl Low HGB 8.7 LAB L100.1400 37-47 % Low HCT 26.1 LAB L100.1500 81-99 fL Normal MCV 88.5 LAB L100.1600 27.0-32.0 pg Normal MCH 29.5 LAB L100.1700 32-36 g/gl Normal MCHC 33.3 LAB L100.1810 11.6-14.6 % Normal RDW CV 13.3 LAB L100.1820 35.1-43.9 fl Normal RDW SD 40.9 LAB L100.1900 150-450 K/mm3 Normal PLT 193 LAB L100.2000 6.2-12.0 fl Normal MPV 7.9 LAB L100.2100 47-70 % High NEUT% 72.4 LAB L100.2200 19-41 % Low LY% 17.2 LAB L100.2300 0-10 % Normal MONO% 8.1 LAB L100.2400 0-5 % Normal EO% 1.9 LAB L100.2500 0-1 % Normal BASO% 0.2 LAB L100.2550 0.0-0.9 % Normal IM GRAN % 0.200 Result Comment: IG% - Immature Granulocytes (promyelocytes, myelocytes and metamyelocytes) > 1% indicates that a LEFT SHIFT is Present. LAB L100.2620 2.0-7.7 X10 3/uL Normal Absolute Neut 4.1 LAB L100.2720 0.83-4.51 X10 3/ul Normal Absolute Lymph 0.98 Performed By: #### L100.0100 #### [facility] [address] [place], [address] BASIC METABOLIC Collected: 01/16/2018 Status: F Source: [place] PROFILE ([facility]) 5:05 AM [facility] REPOSITORY Order Comment: SPECIMEN OBTAINED FROM LINE DRAW TYPE CODE TESTS RESULT OUT OF RANGE REFERENCE UNITS LAB L501.0100 74-106 mg/dL Normal GLU 95 Result Comment: Please note revised GLUCOSE reference range effective 2017. LAB L501.1000 7-18 mg/dL Normal BUN 11 LAB L501.1100 0.55-1.02 mg/dL Normal CREAT,SERUM 0.99 Result Comment: The validity of the calculated GFR AND GFRAA in patients over 70 years has not been determined. Clinical correlation is essential. LAB L501.1110 >60 mL/min Normal EST GFR 68 Result Comment: Non- GFR Calc LAB L501.1115 >60 mL/min Normal EST GFR - AA 83 Result Comment: GFR Calc LAB L501.1255 ml/min Normal Estimated CRCL 81.53 LAB L501.1300 10-20 RATIO Normal BUN/CRE 11.1 LAB L501.2200 8.5-10 mg/dL Low .1 CA 7.9 LAB L501.5300 136-14 mmol/L Normal 5 NA 142 LAB L501.5600 3.5-5. mmol/L Normal 1 K 3.6 LAB L501.5900 98-107 mmol/L High CL 109 LAB L501.6100 21.0-3 mmol/L Normal 2.0 CO2 25.0 LAB L501.6200 5-15 Normal GAP 8 Performed By: #### L500.2500 #### [facility] [address] [place], [address] HH, HEMOGLOBIN AND Collected: 01/15/2018 Status: F Source: [place] HEMATOCRIT 4:20 PM [facility] REPOSITORY Order Comment: IVT DRAW/PORT LINE TYPE CODE TESTS RESULT OUT OF RANGE REFERENCE UNITS LAB L100.1300 12.0-15.0 g/dl Low HGB 8.6 LAB L100.1400 37-47 % Low HCT 26.2 Performed By: #### L100.0600 #### [facility] [address] [place], [address] TYPE AND SCREEN Collected: 01/15/2018 Status: F Source: [place] 12:10 PM [facility] REPOSITORY Order Comment: CMV NEG? N Number of units to transfuse: 2 Is this product for anemia associated with hemoglobinopathy? N Is pt's Hgb is </= to 7.0 mg/dl or Hct </= 21%? N Is there an orthostatic change in BP (SBP drop > 10mmHg)? N Is this for PREOP anemia correction prior to anesthesia? N Reason for Ordering Blood: Chronic Is there symptomatic anemia? Y Are the blood/blood products to be transfused? Y Is the patient having/had surgery? N Give When? When Ready Irradiated? N Leukodepleted? Y TYPE CODE TESTS RESULT OUT OF RANGE REFERENCE UNITS LAB B10.0800 O Normal BLOOD TYPE GEL NEGATIVE LAB B100.4000 Normal Antibody NEGATIVE Screen Performed By: #### B101.7450 #### [facility] [address] [place], [address] Collected: 01/15/2018 Status: F Source: [place] 12:10 PM [facility] REPOSITORY TYPE CODE TESTS RESULT OUT OF REFERENCE UNITS RANGE LAB U100.0000 [id number] TRANSFUSED PRODUCT: T AND S with Crossmatch, Red Cells COUNT: 2 Performed By: #### U100.0000 #### Non-[facility] - refer to report for specific site CBC W/DIFF, AUTOMATED Collected: 01/15/2018 Status: F Source: [place] 6:20 AM [facility] REPOSITORY Order Comment: SPECIMEN OBTAINED FROM LINE DRAW TYPE CODE TESTS RESULT OUT OF RANGE REFERENCE UNITS LAB L100.1000 4.4-11.0 K/mm3 Normal WBC 5.7 LAB L100.1200 4.2-5.4 M/mm3 Low RBC 2.57 LAB L100.1300 12.0-15.0 g/dl Low HGB 7.6 LAB L100.1400 37-47 % Low HCT 23.2 LAB L100.1500 81-99 fL Normal MCV 90.3 LAB L100.1600 27.0-32.0 pg Normal MCH 29.6 LAB L100.1700 32-36 g/gl Normal MCHC 32.8 LAB L100.1810 11.6-14.6 % Normal RDW CV 13.0 LAB L100.1820 35.1-43.9 fl Normal RDW SD 41.3 LAB L100.1900 150-450 K/mm3 Normal PLT 175 LAB L100.2000 6.2-12.0 fl Normal MPV 7.4 LAB L100.2100 47-70 % High NEUT% 74.1 LAB L100.2200 19-41 % Low LY% 16.3 LAB L100.2300 0-10 % Normal MONO% 7.4 LAB L100.2400 0-5 % Normal EO% 1.8 LAB L100.2500 0-1 % Normal BASO% 0.4 LAB L100.2550 0.0-0.9 % Normal IM GRAN % 0.000 Result Comment: IG% - Immature Granulocytes (promyelocytes, myelocytes and metamyelocytes) > 1% indicates that a LEFT SHIFT is Present. LAB L100.2620 2.0-7.7 X10 3/uL Normal Absolute Neut 4.2 LAB L100.2720 0.83-4.51 X10 3/ul Normal Absolute Lymph 0.93 Performed By: #### L100.0100 #### [facility] [address] [place], [address] BASIC METABOLIC Collected: 01/15/2018 Status: F Source: [place] PROFILE ([facility]) 6:20 AM [facility] REPOSITORY Order Comment: SPECIMEN OBTAINED FROM LINE DRAW TYPE CODE TESTS RESULT OUT OF RANGE REFERENCE UNITS LAB L501.0100 74-106 mg/dL Normal GLU 99 Result Comment: Please note revised GLUCOSE reference range effective 2017. LAB L501.1000 7-18 mg/dL Normal BUN 12 LAB L501.1100 0.55-1.02 mg/dL Normal CREAT,SERUM 0.95 Result Comment: The validity of the calculated GFR AND GFRAA in patients over 70 years has not been determined. Clinical correlation is essential. LAB L501.1110 >60 mL/min Normal EST GFR 72 Result Comment: Non- GFR Calc LAB L501.1115 >60 mL/min Normal EST GFR - AA 87 Result Comment: GFR Calc LAB L501.1255 ml/min Normal Estimated CRCL 84.97 LAB L501.1300 10-20 RATIO Normal BUN/CRE 12.7 LAB L501.2200 8.5-10 mg/dL Low .1 CA 8.1 LAB L501.5300 136-14 mmol/L Normal 5 NA 140 LAB L501.5600 3.5-5. mmol/L Normal 1 K 3.8 LAB L501.5900 98-107 mmol/L High CL 108 LAB L501.6100 21.0-3 mmol/L Normal 2.0 CO2 26.0 LAB L501.6200 5-15 Normal GAP 6 Performed By: #### L500.2500, L501.6710 #### [facility] [address] [place], [address] CRP Collected: 01/15/2018 Status: F Source: [place] 6:20 AM [facility] REPOSITORY Order Comment: SPECIMEN OBTAINED FROM LINE DRAW TYPE CODE TESTS RESULT OUT OF RANGE REFERENCE UNITS LAB L501.6710 0.0-3.0 mg/L High 103.00 C-REACTIVE PROT Result Comment: C-Reactive Protein (CRP) provides useful information for the diagnosis, therapy and monitoring of inflammatory processes and associated diseases. For the evaluation of Relative Risk for Cardiovascular Disease, a High Sensitivity CRP (HSCRP) should be ordered. Performed By: #### L500.2500, L501.6710 #### [facility] [address] [place], [address] VANCOMYCIN, TROUGH Collected: 01/14/2018 Status: F Source: [place] LEVEL 6:10 PM [facility] REPOSITORY Order Comment: Time Medication is to be Given? 1900 TYPE CODE TESTS RESULT OUT OF REFERENCE UNITS RANGE LAB L501.8820 5.0-15.0 ug/mL High VANCO, TROUGH 15.4 Result Comment: VANCOMYCIN STANDARED DRUG THERAPY TROUGH LEVEL: 5.0 - 15.0 mg/L VANCOMYCIN HIGH INTENSITY THERAPY TROUGH LEVEL: 15.0 - 20.0 mg/L High Intensity therapy recommended for serious life threatening infections include: - Meningitis -Endocarditis -Pneumonia (Ventilator/Healtcare Associated) -Sepsis PLEASE CONTACT PHARMACY SERVICES (#[id number]) FOR INTERPRETATION OF RESULTS. Performed By: #### L501.8820 #### [facility] [address] [place], [address] ERYTHROCYTE SED RATE Collected: 01/14/2018 Status: F Source: [place] 7:45 AM [facility] REPOSITORY TYPE CODE TESTS RESULT OUT OF RANGE REFERENCE UNITS LAB L102.0000 0-20 mm/hr High SED RATE 23 Performed By: #### L101.9900, L100.0500 #### [facility] [address] [place], [address] CBC-COMPLETE BLOOD CNT Collected: 01/14/2018 Status: F Source: [place] NO DIFF 7:45 AM [facility] REPOSITORY TYPE CODE TESTS RESULT OUT OF RANGE REFERENCE UNITS LAB L100.1000 4.4-11.0 K/mm3 Normal WBC 5.3 LAB L100.1200 4.2-5.4 M/mm3 Low RBC 2.81 LAB L100.1300 12.0-15.0 g/dl Low HGB 8.2 LAB L100.1400 37-47 % Low HCT 25.0 LAB L100.1500 81-99 fL Normal MCV 89.0 LAB L100.1600 27.0-32.0 pg Normal MCH 29.2 LAB L100.1700 32-36 g/gl Normal MCHC 32.8 LAB L100.1810 11.6-14.6 % Normal RDW CV 13.6 LAB L100.1820 35.1-43.9 fl High RDW SD 44.0 LAB L100.1900 150-450 K/mm3 Low PLT 146 LAB L100.2000 6.2-12.0 fl Normal MPV 7.7 Performed By: #### L101.9900, L100.0500 #### [facility] [address] [place], [address] COMPREHENSIVE METABOLIC Collected: 01/14/2018 Status: F Source: [facility] 7:45 AM [facility] REPOSITORY TYPE CODE TESTS RESULT OUT OF RANGE REFERENCE UNITS LAB L501.0100 74-106 mg/dL Normal GLU 94 Result Comment: Please note revised GLUCOSE reference range effective 2017. LAB L501.1000 7-18 mg/dL Normal BUN 15 LAB L501.1100 0.55-1.02 mg/dL Normal CREAT,SERUM 0.93 Result Comment: The validity of the calculated GFR AND GFRAA in patients over 70 years has not been determined. Clinical correlation is essential. LAB L501.1110 >60 mL/min Normal EST GFR 73 Result Comment: Non- GFR Calc LAB L501.1115 >60 mL/min Normal EST GFR - AA 88 Result Comment: GFR Calc LAB L501.1255 ml/min Normal Estimated CRCL 86.79 LAB L501.1300 10-20 RATIO Normal BUN/CRE 16.1 LAB L501.1500 6.4-8. g/dL Low 2 T PROT 5.7 LAB L501.1800 3.2-5. g/dL Low 0 ALB 2.4 LAB L501.1950 2.2-4. g/dL Normal 2 GLOB 3.3 LAB L501.2000 0.9-2. RATIO Low 4 A/G 0.7 LAB L501.2200 8.5-10 mg/dL Low .1 CA 7.8 LAB L501.4100 15-37 U/L High AST 53 LAB L501.4305 45-117 U/L Normal ALK P 93 LAB L501.4405 13-56 U/L High ALT 124 Result Comment: Please note revised ALT reference range effective 2017. LAB L501.4600 0.20-1.00 mg/dL Normal T BILI 0.30 LAB L501.5300 136-145 mmol/L Normal NA 144 LAB L501.5600 3.5-5.1 mmol/L Normal K 3.8 LAB L501.5900 98-107 mmol/L High CL 112 LAB L501.6100 21.0-32.0 mmol/L Normal CO2 25.0 LAB L501.6200 5-15 Normal GAP 7 Performed By: #### L500.4050, L501.6710, L506.0500 #### [facility] [address] [place], [place], [id number] CRP Collected: 01/14/2018 Status: F Source: [place] 7:45 AM [facility] REPOSITORY TYPE CODE TESTS RESULT OUT OF RANGE REFERENCE UNITS LAB L501.6710 0.0-3.0 mg/L High 102.00 C-REACTIVE PROT Result Comment: C-Reactive Protein (CRP) provides useful information for the diagnosis, therapy and monitoring of inflammatory processes and associated diseases. For the evaluation of Relative Risk for Cardiovascular Disease, a High Sensitivity CRP (HSCRP) should be ordered. Performed By: #### L500.4050, L501.6710, L506.0500 #### [facility] [address] [place], [address] PREALBUMIN Collected: 01/14/2018 Status: F Source: [place] 7:45 AM [facility] REPOSITORY TYPE CODE TESTS RESULT OUT OF REFERENCE UNITS RANGE LAB L506.0500 20.0-40.0 mg/dL Low PREALBUMIN 12.0 Performed By: #### L500.4050, L501.6710, L506.0500 #### [facility] [address] [place], [address] MRSA WOUND DNA BY Collected: 01/13/2018 Status: F Source: [place] PCR 11:10 PM [facility] REPOSITORY Order Comment: Comments: obtain at time of vac removal today Specimen Source? left breast wound TYPE CODE TESTS RESULT OUT OF RANGE REFERENCE UNITS LAB L8200.1100 Negative Normal MRSA Negative RESULT LAB L8200.1150 Negative Normal SA RESULT NEGATIVE Performed By: #### L8200.1075 #### [facility] [address] [place], [address] Observed: 01/13/2018 Status: F Source: [place] CULTURE, DEEP WOUND 11:10 PM [facility] REPOSITORY Comments: obtain cx when vac removed. Gram Stain Gram Stain 1+ Red Blood Cells 1+ White Blood Cells Rare Gram positive rods Rare Gram positive cocci Wound Culture #2 Clinical correlation necessary, Possible skin contamination. ORGANISM 1: Acinetobacter radioresistens Amount Growth 1+ ORGANISM 2: Staphylococcus epidermidis Amount Growth 1+ Acinetobacter radioresistens: REACTION Ceftazidime *NF 2 S Ceftriaxone $ 8 S Ciprofloxacin $ 0.5 S Gentamicin $ <=1 S Imipenem *NF <=0.25 S Levofloxacin $ 0.5 S Tobramycin $ <=1 S Trimethoprim/Sulfametho $ <=20 S (NF) indicates non-formulary drug at [facility]. Approval by Infectious Disease Specialist required before non-formulary drugs may be ordered and/or dispensed. Staphylococcus epidermidis: REACTION Benzylpenicillin NF >=0.5 R Cefoxitin *NF + Clindamycin $$ <=0.25 S Inducable Clindamycin Res[place] - Erythromycin $ >=8 R Gentamicin $ <=0.5 S Levofloxacin $ <=0.12 S Linezolid $$$$ 1 S Oxacillin NF >=4 R Tigecycline $$$$ <=0.12 S Rifampin $$ <=0.5 S Tetracycline NF 2 S Vancomycin $ 1 S (NF) indicates non-formulary drug at [facility]. Approval by Infectious Disease Specialist required before non-formulary drugs may be ordered and/or dispensed. * CLSI guidelines does not recommend testing of cephalosporins. This interpretation is deduced from Beta-lactam/penicillin results. Cult, Anaerobic No anaerobic bacteria isolated. Performed By: #### M100.1500 #### [facility] [address] [place], [address] CONSULTATION Observed: 01/13/2018 Status: F Source: [place] 6:53 PM [facility] REPOSITORY [facility] Medical Records Department [address] [place] [address] Consultation 01/13/18 1655 MR#: [id number] Acct: [id number] Name: GAIL LACEY Rep #: [id number] : 1985 32 From: Jillian Kapadia PCP: Kaden Robles MD Status: REG ER Y Location: ED Problem List (1) Pain of left breast Status: Acute (2) Deformity of reconstructed breast Status: Acute Comment: lateral deformity reconstructed left breast (3) Personal history of malignant neoplasm of breast Status: Chronic (4) Cancer of left female breast Status: Chronic Qualifiers: Estrogen receptor status: positive (5) Drug induced neutropenia Status: Resolved (6) Pancytopenia Status: Resolved (7) Fatty liver Status: Chronic (8) STEVE (obstructive sleep apnea) Status: Chronic (9) Chronic back pain Status: Chronic Qualifiers: Back pain location: back pain in unspecified location Back pain laterality: unspecified Qualified Code(s): M54.9 - Dorsalgia, unspecified; G89.29 - Other chronic pain (10) Hypothyroidism Status: Chronic Qualifiers: Hypothyroidism type: unspecified Qualified Code(s): E03.9 - Hypothyroidism, unspecified (11) Narcolepsy Status: Chronic (12) Anxiety and depression Status: Chronic (13) Fever Status: Acute Qualifiers: Fever type: unspecified Qualified Code(s): R50.9 - Fever, unspecified (14) Wound infection Status: Acute Reason for Consult Date of Consultation: 01/13/18 Reason for Consultation: Medical consultation. History of Present Illness: The patient is a 32 y/o F w/ PMHx: Obesity, Hypothyroidism, Anxiety and Depression, Fatty Liver Disease, Narcolepsy, STEVE, Chronic Back Pain, L Breast CA treated with chemotherapy and radiation prior and Leukine injections following w/ Dr. Edouard initially diagnosed 03/2017 following lumpectomy and SLNBx with pathology demonstrating infiltrating ductal carcinoma (ER negative, KS weakly positive, HER2/dilia positive) with development post-lumpectomy seroma ulcer requiring intervention 08/05/17 with noted complex secondary wound closure with OR cx w/ anaerobic cocci treated with abx with ongoing pain to the area of the lateral incision and into the lateral chest wall and axillary region as well prompting follow-up 01/04/18 revision of left breast reconstruction with excision painful infected lateral radiation lumpectomy scar contour deformity with completion mastectomy who now re-presents to the [facility] ED on 01/13/18 with onset of fever of day of presentation. Dr. Robertson was noted per patient to have recently de-escalated her abx therapy on the Wednesday prior to current presentation to doxycycline per patient report. In the ED work-up included T 99.2, HR 111, BP 123/85, RR 21, 98% on RA, CBC w/ WBC 8.3, Hgb 10.6, Plts 230 without marked shift, BMP unremarkable, Bld Cx x 2 obtained. VAC maintained in place pending Dr. Wilkins takejhonathan. Patient admitted per Dr. Robertson, initiated on Vancomycin in the ED with Hospitalist evaluation request. Past Medical History Past Medical History (Chronic Problems): Chronic Problems (Last Reviewed 12/27/17 @ 11:54 by Mile Healy) Intermittent epigastric abdominal pain (Chronic) Personal history of malignant neoplasm of breast (Chronic) Cancer of left female breast (Chronic) Fatty liver (Chronic) STEVE (obstructive sleep apnea) (Chronic) Chronic back pain (Chronic) Hypothyroidism (Chronic) Narcolepsy (Chronic) Anxiety and depression (Chronic) Allergies hydromorphone [From Dilaudid] Allergy (Severe, Verified 01/13/18 15:45) Laryngospasms morphine Allergy (Severe, Verified 01/13/18 15:45) chest tightening TAPE Adverse Reaction (Mild, Uncoded 01/13/18 15:45) Other Home Medications: Ambulatory Orders Medication Instructions Recorded Tamoxifen Citrate [Nolvadex] 20 mg PO QHS 01/03/18 Surgical History: - - [place] teeth, [place], Partial Mastectomy 04/06/17, [place] Pl[place], left lateral breast with incision and drainage and excision nonhealing post-lumpectomy seroma ulcer with 9 cm complex secondary wound closure, recent Revision left breast reconstruction with excision painful infected lateral radiation lumpectomy scar contour deformity with completion mastectomy. 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 Paternal History Items: Heart Disease, Hypertension Review of Systems Constitutional: Reports: Anorexia, Chills, Fever, Malaise, Weakness, Fatigue. Denies: Weight Change HEENT: Denies: Head Aches, Sinus Congestion, Sinus Drainage Cardiovascular: Denies: Chest Pain, Palpitations Respiratory: Denies: Cough, Shortness of breath at rest, Sputum production Gastrointestinal: Denies: Abdominal Pain, Nausea, Vomiting Genitourinary: Denies: Dysuria Gynecological: Reports: Breast symptoms Musculoskeletal: Denies: Joint Pain, Joint Tenderness Skin: Reports: Skin Changes, Wounds. Denies: Rash Neurological: Denies: Numbness, Tingling, Focal weakness Psychiatric: Reports: Anxiety, Depression. Denies: Homicidal Ideations, Suicidal Ideations Hematologic/ Lymphatic: Reports: Anemia. Denies: Easy Bruising, Easy Bleeding Patient Problems: Active and Suspected Problems (Last Reviewed 12/27/17 @ 11:54 by Mile Healy) Wound infection (Acute) Subjective: Seated upright in the ED bed, fatigued appearance. Objective: Physical Examination: General: awake, alert, oriented x 3 and cooperative, seated upright in the ED bed, fatigued and ill appearing. Skin: normal color, turgor, no icterus, cyanosis except L lateral breast region VAC in place, no marked gemini-wound erythema noted, severe TTP of the region however, warm to touch. HEENT: AT/NC, EOMI, PERRLA, dry MM, no carotid bruits or JVD noted. Lungs: CTA bilaterally, moderate effort, moderate decrease BL bases, no rales, ronchi or wheezing. Heart: Tachycardic with regular rhythm; no gallop, rub audible. Abdomen: soft, obese, NTTP, ND, normal BS, no HSM. Extremities: no cyanosis, clubbing, decreased usage LUE, chronic. Neurological: patient awake, alert, oriented x 3; cognitive function intact; pupils equally reactive to light and accomodation; cranial nerves II-XII grossly normal, moving RUE and BL LE, chronic debility LUE, strength severely globally decreased secondary to acute presentation. Psychiatric: affect appears flat, fatigued, no acute evidence of depressive or anxiety feelings. - Physical Exam Vital Signs Temp Pulse Resp BP Pulse Ox 100.3 F H 138 H 22 H 137/98 H 97 01/13/18 15:42 01/13/18 15:42 01/13/18 15:42 01/13/18 15:42 01/13/18 15:42 Oxygen Delivery Method Room Air Weight: 227 lb 11.8 oz Body Mass Index (BMI) 34.6 Finger Stick Blood Glucose 105 Laboratory Tests Past 24 Hrs Urine Color Yellow Urine Clarity Sl. Cloudy Urine pH 5.0 Ur Specific [place] 1.020 Assessment/Plan Active and Suspected Problems (Last Reviewed 12/27/17 @ 11:54 by Mile Healy) Wound infection (Acute) The patient is a 32 y/o F w/ PMHx: Obesity, Hypothyroidism, Anxiety and Depression, Fatty Liver Disease, Narcolepsy, STEVE, Chronic Back Pain, L Breast CA treated with chemotherapy and radiation prior and Leukine injections following w/ Dr. Edouard initially diagnosed 03/2017 following lumpectomy and SLNBx with pathology demonstrating infiltrating ductal carcinoma (ER negative, KS weakly positive, HER2/dilia positive) S/P 01/04/18 revision of left breast reconstruction with excision painful infected lateral radiation lumpectomy scar contour deformity with completion mastectomy who now re-presents to the [facility] ED on 01/13/18 with onset of fever of day of presentation. (1) L Breast Region Possible Post-surgical Infection w/ Fever: Admitted to [facility] per Dr. Robertson, maintain on IV Vanc and add Zosyn per review of prior anaerobic Cx, will await Dr. Robertson removal VAC with planned if appropriate Wound Cx and MRSA Cx, plan repeat CBC in AM, continue affected extremity elevation above heart when seated and in bed, monitor erythema outline with VS checks. Wound RN consultation pending. (2) L Breast CA (infiltrating ductal carcinoma): Patient treated with chemotherapy and radiation prior and Leukine injections, following w/ Dr. Edouard initially diagnosed 03/2017 following lumpectomy and SLNBx with pathology demonstrating infiltrating ductal carcinoma noted to be ER negative, KS weakly positive, HER2/dilia positive. Maintain on tamoxifen (3) Anxiety and Depression: Maintain on home regimen valium, not on SSRI/SNRI, encourage outpatient follow-up. (4) Chronic Pain Syndrome: Maintain on home regimen fentanyl TD, gabapentin, percocet. Severe allergies to morphine and dilaudid. (5) Obesity: Once appropriate, would encourage weight loss and lifestyle changes. (6) Hypothyroidism: Agent not listed, TSH and FT4 pending. (7) STEVE: CPAP if appropriate. (8) DVT Prophylaxis: SCDs, lovenox. Code Visit Office Visits / Consults: [id number] IP Consult L4 01/13/18 8643 <Electronically signed by Jillian Kapadia > Date Jillian Kapadia Cosigner Signature (if applicable): Date CC: Kaden Robles MD Signed EMERGENCY DEPARTMENT Observed: 01/13/2018 Status: F Source: [place] SUMMARY 6:00 PM [facility] REPOSITORY [facility] Medical Records Department [address] [place] [address] Emergency Department Summary 01/13/18 1616 MR#: [id number] Acct: [id number] Name: GAIL LACEY Rep #: [id number] : 1985 32 From: Kathia Arguelles MD PCP: Kaden Robles MD Status: REG ER - ER Visit Summary Date of Service: 01/13/18 Chief Complaint: Fever History of Present Illness: The patient is a 32 F presenting with fever. She states this started today. She had a mastectomy completion per Dr. Robertson last Wednesday. She was seen in the office on Wednesday. She has a wound VAC. The dressing is changed Wednesday. She talked to Dr. Robertson's nurse today and was advised to come into the ED because of fever. She has had fever, chills. She denies chest pain or shortness of breath. Denies cough. She has had nausea with no vomiting. She is currently on immunotherapy for breast cancer. Physical Examination: Vitals are stable. Temperature 100.3 heart rate 138 alert no acute distress. HEENT exam is unremarkable. Neck is supple. No meningismus Lungs are clear and equal bilaterally. Left breast tenderness with wound VAC in place. Heart is regular and tachycardic Abdomen is soft nontender nondistended. Extremities are unremarkable. Skin is warm and dry. No focal neurologic deficit. Remainder of exam is unremarkable. Emergency Department Course and Treatment: Patient is given IV fluids, Tylenol, Zofran. Chest x-ray shows no acute process. She is given vancomycin IV. Discussed with Dr. Robertson and he will admit for further IV antibiotics. Disposition: Admission Impression: Febrile Illness, s/p mastectomy, history of breast cancer This note was generated with Master Route dictation software. It may contain incorrect words, spelling, and punctuation that were not noted in review of the chart prior to signing ED Disposition - Plan for ED Patient: Chief Complaint: Fever Referrals: Kaden Robles MD [Primary Care Provider] - What to do if you have Problems For any increased pain, shortness of breath, bleeding, nausea or vomiting, chest pain, or any unexpected problems, contact your Primary Care Provider. Call [facility] ([phone]) or report to the closest Emergency Room. Call 911 if necessary. 01/13/18 1800 <Electronically signed by Kathia Arguelles MD> Date Kathia Arguelles MD Cosigner Signature (If Indicated): Date CC: Kaden Robles MD Observed: 01/13/2018 Status: F Source: [place] CULTURE, BLOOD (WB) 5:00 PM [facility] REPOSITORY No growth in 5 days. Performed By: #### M200.1000 #### [facility] [address] [facility] [address] [place], [place], [address] BASIC METABOLIC Collected: 01/13/2018 Status: F Source: [place] PROFILE (BMP) 4:50 PM [facility] REPOSITORY TYPE CODE TESTS RESULT OUT OF RANGE REFERENCE UNITS LAB L501.0100 74-106 mg/dL High GLU 107 Result Comment: Fasting Glucose result from 100 to 125 mg/dL suggests IMPAIRED HOMEOSTASIS per A.D.A. criteria. Please note revised GLUCOSE reference range effective 2017. LAB L501.1000 7-18 mg/dL Normal BUN 18 LAB L501.1100 0.55-1.02 mg/dL Normal CREAT,SERUM 0.94 Result Comment: The validity of the calculated GFR AND GFRAA in patients over 70 years has not been determined. Clinical correlation is essential. LAB L501.1110 >60 mL/min Normal EST GFR 73 Result Comment: Non- GFR Calc LAB L501.1115 >60 mL/min Normal EST GFR - AA 88 Result Comment: GFR Calc LAB L501.1255 ml/min Normal Estimated CRCL 85.87 LAB L501.1300 10-20 RATIO Normal BUN/CRE 19.2 LAB L501.2200 8.5-10 mg/dL Normal .1 CA 8.6 LAB L501.5300 136-14 mmol/L Normal 5 NA 140 LAB L501.5600 3.5-5. mmol/L Normal 1 K 3.6 LAB L501.5900 98-107 mmol/L Normal CL 106 LAB L501.6100 21.0-3 mmol/L Normal 2.0 CO2 24.0 LAB L501.6200 5-15 Normal GAP 10 Performed By: #### L500.2500 #### [facility] [address] [place], [place], [address] LACTIC ACID Collected: 01/13/2018 Status: F Source: [place] 4:50 PM [facility] REPOSITORY Order Comment: Yes/No query for Sepsis Lactate Rule Y TYPE CODE TESTS RESULT OUT OF RANGE REFERENCE UNITS LAB L503.6005 0.4-2.0 mmol/L Normal LACTIC ACID 1.0 Performed By: #### L503.6005 #### [facility] [address] [place], [place], [address] CBC W/DIFF, AUTOMATED Collected: 01/13/2018 Status: F Source: [place] 4:50 PM [facility] REPOSITORY TYPE CODE TESTS RESULT OUT OF RANGE REFERENCE UNITS LAB L100.1000 4.4-11.0 K/mm3 Normal WBC 8.3 LAB L100.1200 4.2-5.4 M/mm3 Low RBC 3.53 LAB L100.1300 12.0-15.0 g/dl Low HGB 10.6 LAB L100.1400 37-47 % Low HCT 31.4 LAB L100.1500 81-99 fL Normal MCV 89.0 LAB L100.1600 27.0-32.0 pg Normal MCH 30.0 LAB L100.1700 32-36 g/gl Normal MCHC 33.8 LAB L100.1810 11.6-14.6 % Normal RDW CV 13.0 LAB L100.1820 35.1-43.9 fl Normal RDW SD 40.9 LAB L100.1900 150-450 K/mm3 Normal PLT 230 LAB L100.2000 6.2-12.0 fl Normal MPV 8.5 LAB L100.2100 47-70 % High NEUT% 78.8 LAB L100.2200 19-41 % Low LY% 13.0 LAB L100.2300 0-10 % Normal MONO% 7.2 LAB L100.2400 0-5 % Normal EO% 0.8 LAB L100.2500 0-1 % Normal BASO% 0.1 LAB L100.2550 0.0-0.9 % Normal IM GRAN % 0.100 Result Comment: IG% - Immature Granulocytes (promyelocytes, myelocytes and metamyelocytes) > 1% indicates that a LEFT SHIFT is Present. LAB L100.2620 2.0-7.7 X10 3/uL Normal Absolute Neut 6.5 LAB L100.2720 0.83-4.51 X10 3/ul Normal Absolute Lymph 1.08 Performed By: #### L100.0100 #### [facility] [address] [place], [address] MAGNESIUM Collected: 01/13/2018 Status: F Source: [place] 4:50 PM [facility] REPOSITORY TYPE CODE TESTS RESULT OUT OF RANGE REFERENCE UNITS LAB L501.5200 1.6-2.6 mg/dL Normal MG 1.7 Result Comment: Please note revised Magnesium reference range effective 2017. Performed By: #### L501.5200, L501.9520, L506.0400 #### [facility] [address] [place], [address] THYROID STIM HORMONE Collected: 01/13/2018 Status: F Source: [place] (TSH) 4:50 PM [facility] REPOSITORY TYPE CODE TESTS RESULT OUT OF RANGE REFERENCE UNITS LAB L501.9520 0.358-3.74 uIU/mL High TSH 11.20 Performed By: #### L501.5200, L501.9520, L506.0400 #### [facility] [address] [place], [address] T4 FREE DIRECT Collected: 01/13/2018 Status: F Source: [place] 4:50 PM [facility] REPOSITORY TYPE CODE TESTS RESULT OUT OF RANGE REFERENCE UNITS LAB L506.0400 0.76-1.46 ng/dL Normal T4 FREE 0.91 DIRECT Performed By: #### L501.5200, L501.9520, L506.0400 #### [facility] [address] [place], [address] Observed: 01/13/2018 Status: F Source: [place] CULTURE, BLOOD (WB) 4:50 PM [facility] REPOSITORY BC No growth in 5 days. Performed By: #### M200.1000 #### [facility] [address] [place], [address] URINALYSIS, COMPLETE Collected: 01/13/2018 Status: F Source: [place] 4:24 PM [facility] REPOSITORY Order Comment: Order Date: 01/13/18 How was Urine Obtained? CLEAN CATCH TYPE CODE TESTS RESULT OUT OF RANGE REFERENCE UNITS LAB L400.3000 Yellow COLOR Normal Yellow LAB L400.3050 Clear Normal CLARITY Sl. Cloudy LAB L400.3200 Normal mg/dl Normal GLUCOSE, UR Normal LAB L400.3300 Negative mg/dL Normal BILIRUBIN URINE Negative LAB L400.3400 Negative mg/dl High 5 KETONE UR LAB L400.3465 1.002-1.030 Normal SP.GR. DIPSTX 1.020 LAB L400.3550 5.0 - 8.0 pH UR Normal 5.0 LAB L400.3600 Negative mg/dl High PROT 30 DIPSTX LAB L400.3700 Normal mg/dl Normal UROBILI Normal LAB L400.3750 Negative Normal NITRITE UR Negative LAB L400.3780 Negative /ul High 10 OCCULT BLOOD-UR LAB L400.3800 Negative /ul High LEUK ESTERASE 100 LAB L400.4050 0-5 /hpf WBC Normal 5-10 SEEN LAB L400.4100 0-5 /hpf Normal RBC-UA 0-5 SEEN LAB L400.4150 5-10 /hpf SQUAM Normal EPI 10-25 SEEN LAB L400.4300 None Seen /hpf 0 Normal BACTERIA SEEN LAB L400.4350 <or=2+ /hpf Normal MUCUS, URINE RARE LAB L400.4900 1+ Normal AMORPHOUS URATE Performed By: #### L400.0001 #### [facility] [address] [place], [address] CHEST 1 VIEW Observed: 01/13/2018 Status: F Source: [place] (PORTABLE) 4:07 PM [facility] REPOSITORY [facility] Imaging Services [address] [place] [address] Chest 1 View (Portable) MR#: [id number] Acct: [id number] Name: JOANGAIL CLAROS Jordan Rep #: [id number] : 1985 F 32 From: Cici [place] MD PCP: Kaden Robles MD Status: REG ER Study: Chest 1 View (Portable) Date of Exam: 01/13/18 Exam# [id number] Ordering Dr: Kathia Arguelles MD STUDY: X-RAY CHEST REASON FOR EXAM: Female, 32 years old. Fever, chills, diaphoresis. Wound VAC applied to the left breast status post left mastectomy. Sent home with antibiotics. TECHNIQUE: 1 view COMPARISON: Prior chest radiograph of January 06, 2018. FINDINGS: Right subclavian venous line ends at the atriocaval junction. The lungs are clear and expanded. Prior atelectatic changes have resolved. Negative for new consolidation or pleural effusion. Normal size heart. Normal mediastinum and alie. Normal visualized pulmonary arteries. Normal visualized aortic arch and descending thoracic aorta. Normal visualized thoracic spine. Normal visualized ribs, clavicles, and shoulders. Obvious soft tissue deformity of the lateral margin of the breast and an overlying drainage catheter. RAD/Chest 1 View (Portable) IMPRESSION: No acute cardiopulmonary findings. Prior atelectatic changes have resolved with no new area of focal consolidation, substantial atelectasis or pleural effusion. Right subclavian catheter remains ending at the atriocaval junction. Obvious soft tissue deformity of the lateral margin of the left breast with overlying drainage catheter. Electronically Signed: Cici [place] MD at 16:42 EDT , Service support , CC: Kathia Arguelles MD; Kaden Robles MD Bridge Painter Helper: Signed 12 LEAD ELECTROCARDIOGRAM Observed: 01/13/2018 Status: F Source: [place] 4:01 PM [facility] REPOSITORY [facility] Cardiovascular Services [address] [place] [address] 12 Lead EKG 01/04/18 0544 MR#: [id number] Acct: [id number] Name: GAIL LACEY Rep #: [id number] : 1985 32 From: Francisco Restrepo MD Attending Dr: Jose Robertson MD Status: DIS IN Ordering Dr: Isac Bryant MD Date: 01/04/18 [place] [facility] [place]: F C Admitted: 01/03/18 Test Reason : AM EKG Blood Pressure : / mmHG Vent. Rate : 090 BPM Atrial Rate : 090 BPM P-R Int : 136 ms QRS Dur : 080 ms QT Int : 390 ms P-R-T Axes : 044 037 027 degrees QTc Int : 477 ms Normal sinus rhythm Normal ECG When compared with ECG of 10-JUL-2017 21:03, Vent. rate has decreased BY 51 BPM Confirmed by FRANCISCO RESTREPO MD ([id number]), development editor BUZZ GALARZA ([id number]) on 01/13/2018 4:00:40 PM Referred By: Jose Robertson Confirmed By:FRANCISCO RESTREPO MD 01/13/18 1600 Date Francisco Restrepo MD CC: Kaden Robles MD; Isac Bryant MD; Jose Robertson MD Signed DISCHARGE SUMMARY Observed: 01/09/2018 Status: F Source: [place] 10:25 AM [facility] REPOSITORY [facility] Medical Records Department [address] [place] [address] Discharge Summary 01/06/181954 MR#: [id number] Acct: [id number] Name: GAIL LACEY Rep #: [id number] : 1985 32 From: Jose Robertson MD PCP: Kaden Robles MD Status: DIS IN Y [place] [facility] [id number] Discharge Date and Diagnosis Date of Admission: 01/03/18 Date of Discharge: 01/06/18 - Primary Discharge Diagnosis Post-lumpectomy painful indentation scar contour deformity left lateral breast. Late effect radiation left breast. Left breast cancer. - Secondary Discharge Diagnosis s/p lumpectomy with chemotherapy and radiation therapy. Disproportion reconstructed left breast. Post-lumpectomy infected seroma left lateral breast. Intermittent epigastric abdominal pain Fatty liver STEVE (obstructive sleep apnea) Chronic back pain Hypothyroidism Narcolepsy Anxiety and depression Hospital Course and Treatment Imaging Results: 01/06/18 15:50 CXR [Chest PA and Lateral] [RAD] Urgent Consultations 01/04/18 06:52 Consult: Onc/Wound/sleeve fixer Routine Comment: Reason for Consult:: Left breast- probable VAC post top Operations: - - 01/04/18 - Revision left breast reconstruction with excision painful infected lateral radiation lumpectomy scar contour deformity with completion mastectomy. Procedures: Wound vac placement Summary of Care Provided: The patient is a 32 year old F who presented with increasing pain in her left lateral breast after having undergone radiation therapy for breast cancer. She was first diagnosed with left breast cancer and underwent a lumpectomy and sentinel lymph node biopsy in 04/03. 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 She was started on IV chemotherapy with difficulties with pancytopenia and thrombocytopenia. It was noted that she had difficulty with the lumpectomy incision since the surgery. She developed a post-lumpectomy seroma ulcer that necessitated surgical intervention on 08/05/17 where she underwent surgical preparation left lateral breast with incision and drainage and excision nonhealing post-lumpectomy seroma ulcer with 9 cm complex secondary wound closure. It healed without issues initially. Operative culture showed Anaerobic cocci and she was treated with antibiotics. The incision has remained healed, but she has developed increasing pain in the area of the lateral incision and extending laterally onto the chest wall and axillary area. The symptomatology has worsened since the radiation was done. She states she has trouble taking care of her children because of the pain. She tries to take very little pain medication because she wants to be alert with her children. However it has started to affect her ability to get sleep at night secondary to the pain. I had discussed with her that she has increased edema from the radiation therapy which is aggravating the scar tissue on her chest wall from her previous seroma surgery. Because of the worsening pain, I am concerned about a possible infection in the area of the previous seroma surgery. She was admitted on 01/03/18 for IV antibiotics with Unasyn and an MRI was obtained which showed no abnormal enhancing masses or areas of non- mass enhancement in the left breast and no enlarged or abnormal lymph nodes. Operative intervention was recommended to debride the seroma cavity scar tissue and associated radiation fibrosis that is present that is aggravating her painful symptomatology. Depending on the size of the resultant cavity after the revision excision, if I feel that there will be healing issues or that the remaining breast tissue will start to develop firmness from the radiation effects, then I would proceed with completion mastectomy. This would be followed by post-discharge HBO treatments to help the healing process in preparation for further breast reconstruction surgery. On 01/04/18, the patient underwent revision left breast reconstruction with excision painful infected lateral radiation lumpectomy scar contour deformity with completion mastectomy. The following day the VAC was applied with some pain. She needed IV analgesia. By the second postop day, she was tolerating po analgesia and was ready for discharge. Her Pathology was pending. Her operative culture was negative at the time of discharge. She was treated with Unasyn while hospitalized. She will be discharged on Augmentin. On 01/06/18, the VAC was approved and she was tolerating po analgesia and she was discharged home. Home Health has been set up to assist with the VAC dressing changes three times per week at 150 mmHg continuous suction. Prealbumin on 01/03/18 was 24.8. Encouraged nutritional supplementation with protein to help the healing process. She will followup on Wednesday01/10/18 at [facility] for evaluation for HBO treatments. She told me she was set up for endoscopy with Dr. Moseley on 01/10/18. She wants to proceed with the HBO treatments. So I called Dr. Moseley's office to cancel the endoscopy for 01/10/18. His office will call the patient over the next 1-2 weeks to reschedule the endoscopy. Wrote script for Augmentin. If the operative culture becomes positive, then antibiotic modification may be necessary. Wrote scripts for Percocet for pain (60 tabs) and for Valium for spasm (30 tabs). Wrote script for Duragesic Patch for pain, 25mcg (5 patches). Wrote script for Neurontin for burning nerve pain (90 tabs) and 2 refills. Wrote script for Phenergan for nausea (30 tabs) and a refill and for Colace for constipation (60 tabs). Condition upon discharge is good. Discharge Diet: No Restrictions, - - encourage nutritional supplementation with protein to help the healing process. Discharge Activity: May not drive while taking narcotic pain medications., May Shower - on the days the vac is changed., - - no heavy lifting. May shower in (days): 2 - may shower on the days the vac is changed. May resume sexual activity in: No Restrictions Weight Bearing Status: Weight bearing as tolerated Call your doctor if your incision/area has: Continuous Slow Oozing, Sudden Increased Bleeding, Increased Pain/ Swelling, Increased Redness, Foul Smelling Discharge, Swelling at the incision site Call your doctor if you observe: Fever of 101 or Higher, Coldness, Increased Pain, Shortness of breath, Chest pain, Calf discomfort, Uncontrolled pain Suture Line Care: - - vac changes three times per week at 150 mmHg continuous suction. Change Dressing in (Days):: 2 - vac changes three times per week. Cleanse incision/area with: Soap AND Water - may cleanse the wound with soap and water on the days the vac is changed., - - may shower on the days the vac is changed. Additional Dressing/Incision Instructions:: Home Health to assist with vac changes three times per week at 150 mmHg continuous suction. May cleanse the wound with soap and water on the days the vac is changed. Home Medications: Medications to take at Discharge Pentoxifylline [Trental] 400 mg PO BID 01/03/18 Tamoxifen Citrate [Nolvadex] 20 mg PO QHS 01/03/18 Vitamin E 400 unit PO QHS 01/03/18 Amox/Clavulanate Tablet [Augmentin Tablet] 875 mg PO BID #28 tab 01/06/18 Diazepam [Valium] See Label Instructions PO .4x/day prn PRN #30 tab 01/06/18 Docusate Sodium [Colace] 100 mg PO BID #60 cap 01/06/18 Fentanyl 25 mcg TD Q3D 15 Days #5 patch.td72 01/06/18 Gabapentin [Neurontin] 300 mg PO TIDCM 30 Days #90 cap 01/06/18 Oxycodone HCl/Acetaminophen [Percocet 5-325] See Label Instructions PO .4x/day prn PRN 7 Days #60 tab 01/06/18 proMETHazine tablet [Phenergan tablet] 25 mg PO 4X/DAY PRN PRN #30 tab 01/06/18 Following Prescrptions Were Given to Patient: Diazepam [Valium] See Label Instructions PO .4x/day prn PRN #30 tab PRN Reason: Anxiety Fentanyl 25 mcg TD Q3D 15 Days #5 patch.td72 Oxycodone HCl/Acetaminophen [Percocet 5-325] See Label Instructions PO .4x/day prn PRN 7 Days #60 tab PRN Reason: Pain proMETHazine tablet [Phenergan tablet] 25 mg PO 4X/DAY PRN PRN #30 tab PRN Reason: NAUSEA/VOMITING Amox/Clavulanate Tablet [Augmentin Tablet] 875 mg PO BID #28 tab Docusate Sodium [Colace] 100 mg PO BID #60 cap Gabapentin [Neurontin] 300 mg PO TIDCM 30 Days #90 cap Primary Care Physician: Kaden Robles MD [Primary Care Provider] - Please Follow Up With: Jose Robertson MD - call [phone] if questions. When: wednesday01/10/18 at wound center at 900 am. Please Follow Up With: Evangelist Moseley MD When: next couple weeks to schedule endoscopy. Disposition: Home with Home Health Minutes spent on discharge:: 35 Patient Condition:: Stable Medical Necessity - Tobacco Use Smoking Status: Former smoker Meaningful Use Info Meaningful Use Diagnoses (Choose all that apply): None applicable 01/09/18 1025 <Electronically signed by Jose Robertson MD> Date Jose Robertson MD Cosigner Signature (if applicable): Date CC: Kaden Robles MD; Evangelist Moseley MD; Jose Robertson MD; Owen Edouard MD; Devon Xiong DO; [facility] Signed DISCHARGE INSTRUCTION Observed: 01/06/2018 Status: F Source: [place] 7:55 PM [facility] REPOSITORY [facility] Medical Records Department [address] [place] [address] Instructions for Home/Discharge Instructions 01/06/181947 MR#: [id number] Acct: [id number] Name: AMAURYJacquelinGAIL Rep #: [id number] : 1985 32 From: Jose Robertson MD PCP: Kaden Robles MD Status: ADM IN You will use the following diet at home:: No restrictions, Other - encourage nutritional supplementation with protein to help the healing process. Discharge Activity: May not drive while taking narcotic pain medications., May Shower - on the days the vac is changed., - - no heavy lifting. May shower in (days): 2 - may shower on the days the vac is changed. May resume sexual activity in: No Restrictions Weight Bearing Status: Weight bearing as tolerated Lifting Restrictions: 20 lbs. Call your doctor if your incision/area has: Continuous Slow Oozing, Sudden Increased Bleeding, Increased Pain/ Swelling, Increased Redness, Foul Smelling Discharge, Swelling at the incision site Call your doctor if you observe: Fever of 101 or Higher, Coldness, Increased Pain, Shortness of breath, Chest pain, Calf discomfort, Uncontrolled pain Suture Line Care: - - vac changes three times per week at 150 mmHg continuous suction. Change Dressing in (Days):: 2 - vac changes three times per week. Cleanse incision/area with: Soap AND Water - may cleanse the wound with soap and water on the days the vac is changed., - - may shower on the days the vac is changed. Additional Dressing/Incision Instructions:: Home Health to assist with vac changes three times per week at 150 mmHg continuous suction. May cleanse the wound with soap and water on the days the vac is changed. Allergies/Adverse Reactions: Allergies hydromorphone [From Dilaudid] Allergy (Severe, Verified 12/27/17 11:54) Laryngospasms morphine Allergy (Severe, Verified 12/27/17 11:54) chest tightening TAPE Adverse Reaction (Mild, Uncoded 12/09/17 13:37) Other Medications to take at Discharge Pentoxifylline [Trental] 400 mg PO BID 01/03/18 Tamoxifen Citrate [Nolvadex] 20 mg PO QHS 01/03/18 Vitamin E 400 unit PO QHS 01/03/18 Amox/Clavulanate Tablet [Augmentin Tablet] 875 mg PO BID #28 tab 01/06/18 Diazepam [Valium] See Label Instructions PO .4x/day prn PRN #30 tab 01/06/18 Docusate Sodium [Colace] 100 mg PO BID #60 cap 01/06/18 Fentanyl 25 mcg TD Q3D 15 Days #5 patch.td72 01/06/18 Gabapentin [Neurontin] 300 mg PO TIDCM 30 Days #90 cap 01/06/18 Oxycodone HCl/Acetaminophen [Percocet 5-325] See Label Instructions PO .4x/day prn PRN 7 Days #60 tab 01/06/18 proMETHazine tablet [Phenergan tablet] 25 mg PO 4X/DAY PRN PRN #30 tab 01/06/18 The following prescriptions were given: Diazepam [Valium] See Label Instructions PO .4x/day prn PRN #30 tab PRN Reason: Anxiety Fentanyl 25 mcg TD Q3D 15 Days #5 patch.td72 Oxycodone HCl/Acetaminophen [Percocet 5-325] See Label Instructions PO .4x/day prn PRN 7 Days #60 tab PRN Reason: Pain proMETHazine tablet [Phenergan tablet] 25 mg PO 4X/DAY PRN PRN #30 tab PRN Reason: NAUSEA/VOMITING Amox/Clavulanate Tablet [Augmentin Tablet] 875 mg PO BID #28 tab Docusate Sodium [Colace] 100 mg PO BID #60 cap Gabapentin [Neurontin] 300 mg PO TIDCM 30 Days #90 cap Primary Care Physician: Kaedn Robles MD [Primary Care Provider] - Please Follow Up With: Jose Robertson MD - call [phone] if questions. When: wednesday01/10/18 at wound center at 900 am. Please Follow Up With: Evangelist Moseley MD When: next couple weeks to schedule endoscopy. Proposed Discharge Date: 01/06/18 01/06/181954 <Electronically signed by Jose Robertson MD> Date Jose Robertson MD CC: Kaden Robles MD; Evangelist Moseley MD; Owen Edouard MD; Devon Xiong DO; [facility] CHEST PA AND LATERAL Observed: 01/06/2018 Status: F Source: [place] 3:53 PM [facility] REPOSITORY [facility] Imaging Services [address] [place] [address] Chest PA and Lateral MR#: [id number] Acct: [id number] Name: GAIL LACEY Rep #: [id number] : 1985 F 32 From: Sayda Noel MD PCP: Kaden Robles MD Status: ADM IN Study: Chest PA and Lateral Date of Exam: 01/06/18 Exam# [id number] Ordering Dr: Jose Robertson MD STUDY: X-RAY CHEST REASON FOR EXAM: Female, 32 years old. RECENT LEFT MASTECTOMY, EVALUATION FOR HYPERBARIC OXYGEN TREATMENTS TECHNIQUE: PA and lateral views of the chest. COMPARISON: August 19, 2017 FINDINGS: There is a right-sided Port-A-Cath present with its tip in the region of the superior vena cava near the level of the cavoatrial junction. Lower lung volumes are noted on this exam when compared to prior study with new platelike atelectasis in the left midlung field and in the medial right lung base. The upper lungs are otherwise clear. No pleural effusion. No pneumothorax. No focal lung infiltrate. Normal size heart. Normal mediastinum and alie. Normal visualized pulmonary arteries. Normal visualized aortic arch and descending thoracic aorta. Normal visualized thoracic spine. Normal visualized ribs, clavicles, and shoulders. There is no demonstrated abnormality of the visualized soft tissue structures of the upper abdomen. Left mastectomy noted. RAD/Chest PA and Lateral IMPRESSION: Lower lung volumes with bibasilar atelectatic changes. No focal lung infiltrate. No pneumothorax. Electronically Signed: Sayda Noel MD at 17:06 EDT Tel , Service support , CC: Kaden Robles MD; Jose Robertson MD Bridge Painter Helper: Signed HISTORY AND PHYSICAL Observed: 01/06/2018 Status: F Source: [place] EXAM 2:29 AM [facility] REPOSITORY [facility] Medical Records Department [address] [place] [address] [place] [address] History and Physical 01/03/182033 MR#: [id number] Acct: [id number] Name: GAIL LACEY Rep #: [id number] : 1985 32 From: Jose Robertson MD PCP: Kaden Robles MD Status: ADM IN Y [place] [facility] [id number] History and Physical Date of Admission: 01/03/18 HISTORY OF PRESENT ILLNESS 32 year old woman presents with increasing pain in her left lateral breast after having undergone radiation therapy for breast cancer. She was first diagnosed with left breast cancer and underwent a lumpectomy and sentinel lymph node biopsy in 04/03. 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 She was started on IV chemotherapy with difficulties with pancytopenia and thrombocytopenia. It was noted that she had difficulty with the lumpectomy incision since the surgery. She developed a post-lumpectomy seroma ulcer that necessitated surgical intervention on 08/05/17 where she underwent surgical preparation left lateral breast with incision and drainage and excision nonhealing post-lumpectomy seroma ulcer with 9 cm complex secondary wound closure. It healed without issues initially. Operative culture showed Anaerobic cocci and she was treated with antibiotics. The incision has remained healed, but she has developed increasing pain in the area of the lateral incision and extending laterally onto the chest wall and axillary area. The symptomatology has worsened since the radiation was done. She states she has trouble taking care of her children because of the pain. She tries to take very little pain medication because she wants to be alert with her children. However it has started to affect her ability to get sleep at night secondary to the pain. I had discussed with her that she has increased edema from the radiation therapy which is aggravating the scar tissue on her chest wall from her previous seroma surgery. Because of the worsening pain, I am concerned about a possible infection in the area of the previous seroma surgery. She is being admitted today for IV antibiotics and will obtain an MRI to look for any issues that may need to be addressed surgically. She denies any fever. She had a CT Chest scheduled for tomorrow as an outpatient. Will cancel that she is being admitted and we are obtaining an MRI today. 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 Pneumonia STEVE Chronic back pain Nonhealing post-lumpectomy seroma ulcer left lateral breast Chemotherapy induced neutropenia PAST SURGICAL HISTORY: [place] teeth 2003 all 4 Planter Wart 2008 Partial Mastectomy 04/06/17 - getting chemotherapy and will follow with radiation therapy Port Placement 05/03 Hospital-Febrile Neutropenia discharged 07/14/17 Occasional psychiatric hospitalized [id number] surgical preparation left lateral breast with incision and drainage and excision nonhealing post-lumpectomy seroma ulcer with 9 cm complex secondary wound closure - 08/05/17 FAMILY HISTORY: Mother (biol.) - Has Family History of Depression Mother (biol.) - Has Family History of Thyroid Disorder Mother (biol.) - Has Family History of Psychiatric Care Father (biol.) - Has Family History of Hypertension Father (biol.) - Has Family History of High Cholesterol Aunt - Has Family History of Seizures PGM - Has Family History of Other Cancer PGF - Has Family History of Diabetes PGF - Has Family History of Heart Disease PGM - Has Family History of Colon Cancer SOCIAL HISTORY: Drug Use - no Patient is a former smoker. Patient does not drink alcohol. REVIEW OF SYSTEMS General - Denies fever. Has some weight loss and fatigue. Eyes -Denies: Pain HEENT - Denies: Nasal Congestion, Sore Throat Cardiovascular - Denies Chest Pain. Has fatigue. Denies shortness of breath with exertion. Respiratory - patient is a former smoker.. Denies: Cough, Shortness of Breath Gastrointestinal - Has Constipation, Diarrhea. Denies: Nausea, Vomiting Genitourinary - Denies: Frequency, Hematuria Musculoskeletal - Reports: Back Pain, - - has left lateral rib pain. Denies: Hand Pain, Leg Pain, Muscle pain, Neck Pain Skin - Has lumpectomy scar left lateral breast with pain. Pain also radiates laterally onto left lateral rib pain and axillary rib pain. Neuro - Has Headaches Psych - Has Anxiety, Depression Endocrine - Denies Polydipsia, Polyuria Hematologic - Denies Easy Bruising, Hx of blood clot PHYSICAL EXAMINATION General - Alert and oriented. Her bra size is D-DD. HEENT - PERRLA, EOMI Neck - Supple and nontender. No cervical adenopathy. Chest wall - There is tenderness to palpation in the left lateral chest wall over the ribs and extending onto the axillary area. No fluctuance or purulent drainage. Breasts - There is a left lateral breast scar from lumpectomy in 04/03. There is an indentation deformity. Very tender to palpation. The left breast is tender to palpation mostly laterally. No redness. Increased swelling and edema especially around the nipple areolar complex area. No fluctuance. The right breast is a little larger. Slight Stage II ptosis. Lungs - Clear to auscultation Heart - Regular rate, Regular Rhythm Abdomen - Soft, Non-Distended Extremities - No clubbing, No cyanosis, No edema, Peripheral Pulses Normal Lymphatic - no axillary adenopathy. Neuro - Cranial nerves II-XII grossly intact Psych - Normal Affect, Appropriate ASSESSMENT 1. Left breast cancer. 2. s/p lumpectomy with chemotherapy and radiation therapy. 3. Post-lumpectomy painful indentation scar contour deformity left lateral breast. 4. Late effect radiation left breast. 5. Disproportion reconstructed left breast. 6. Post-lumpectomy infected seroma left lateral breast. Begin IV antibiotics with Unasyn. Will check labs for admission (CBC, CMP, Prealbumin, ESR, CRP). She was scheduled for a CT scan Chest for tomorrow as an outpatient. Since she is being admitted, will cancel that outpatient CT. Will obtain an MRI today. Based on the findings and based on her clinical response to the IV antibiotics will determine if operative intervention is needed. The plan would be to revise the left breast reconstruction with excision painful infected radiation lumpectomy scar contour deformity with possible completion mastectomy. Since it was a very large cavity that was debrided back in 08/03, it is possible that most of the breast is being debrided in which case a completion mastectomy would be done. With her radiation treatments, the left breast will always be at risk for worsening of her radiation fibrosis. Because of her radiation damage, will have her evaluated at [facility] Center after discharge for HBO treatments since it will help to soften the surrounding tissue and make it less likely to have healing issues in the future. If I decide to leave the remaining breast tissue because it is soft and viable, I would leave the wound open and pack with the VAC. She would followup at the [facility] for wound care as well for HBO treatments. If a completion mastectomy is done, I may try to close the wound but I may leave it open as well initially with the plan to come back for secondary wound closure if healing is difficult from the radiation therapy. Her breasts are large enough before the breast cancer, that she was a candidate for breast reduction. She states she may need to proceed with a right breast reduction to help with the back pain that is exacerbated with such breast asymmetry. The reduction would lessen the asymmetry temporarily. If a completion mastectomy is done, and the patient wishes to proceed with continued breast reconstruction on the left, then it would be necessary to bring in non-radiated tissue such as the latissimus dorsi flap or the abdominal TRAM flap for reconstruction. After healing has occurred, small cohesive gel implants can be placed if needed. If surgery is performed, the patient was informed of the risks and complications of the procedure including alternatives to surgery. These were discussed with her personally. She voices understanding and wishes to proceed. 01/06/18228 <Electronically signed by Jose Robertson MD> Date Jose Robertson MD Cosigner Signature: Date (if applicable) CC: Kaden Robles MD; Jose Robertson MD; Owen Edouard MD; Devon Xiong DO; [facility] Signed CBC-COMPLETE BLOOD CNT Collected: 01/05/2018 Status: F Source: [place] NO DIFF 5:30 AM [facility] REPOSITORY Order Comment: SPECIMEN OBTAINED FROM LINE DRAW TYPE CODE TESTS RESULT OUT OF RANGE REFERENCE UNITS LAB L100.1000 4.4-11.0 K/mm3 Normal WBC 9.0 LAB L100.1200 4.2-5.4 M/mm3 Low RBC 3.09 LAB L100.1300 12.0-15.0 g/dl Low HGB 9.2 LAB L100.1400 37-47 % Low HCT 27.6 LAB L100.1500 81-99 fL Normal MCV 89.3 LAB L100.1600 27.0-32.0 pg Normal MCH 29.8 LAB L100.1700 32-36 g/gl Normal MCHC 33.3 LAB L100.1810 11.6-14.6 % Normal RDW CV 12.5 LAB L100.1820 35.1-43.9 fl Normal RDW SD 38.9 LAB L100.1900 150-450 K/mm3 Low PLT 147 LAB L100.2000 6.2-12.0 fl Normal MPV 8.1 Performed By: #### L100.0500 #### [facility] [address] [place], [place], [address] BASIC METABOLIC Collected: 01/05/2018 Status: F Source: [place] PROFILE (BMP) 5:30 AM [facility] REPOSITORY Order Comment: SPECIMEN OBTAINED FROM LINE DRAW TYPE CODE TESTS RESULT OUT OF RANGE REFERENCE UNITS LAB L501.0100 74-106 mg/dL Normal GLU 105 Result Comment: Fasting Glucose result from 100 to 125 mg/dL suggests IMPAIRED HOMEOSTASIS per A.D.A. criteria. Please note revised GLUCOSE reference range effective 2017. LAB L501.1000 7-18 mg/dL Normal BUN 13 LAB L501.1100 0.55-1.02 mg/dL Normal CREAT,SERUM 0.78 Result Comment: The validity of the calculated GFR AND GFRAA in patients over 70 years has not been determined. Clinical correlation is essential. LAB L501.1110 >60 mL/min Normal EST GFR 90 Result Comment: Non- GFR Calc LAB L501.1115 >60 mL/min Normal EST GFR - AA 109 Result Comment: GFR Calc LAB L501.1255 ml/min Normal Estimated CRCL 103.48 LAB L501.1300 10-20 RATIO BUN/CRE Normal 16.7 LAB L501.2200 8.5-10 mg/dL Low .1 CA 8.0 LAB L501.5300 136-14 mmol/L 5 NA Normal 139 LAB L501.5600 3.5-5. mmol/L 1 K Normal 3.8 LAB L501.5900 98-107 mmol/L CL Normal 104 LAB L501.6100 21.0-3 mmol/L 2.0 CO2 Normal 25.0 LAB L501.6200 5-15 GAP Normal 10 Performed By: #### L500.2500 #### [facility] [address] [place], [address] PLASTIC SURGERY Observed: 01/05/2018 Status: F Source: [place] VISIT REPORT 1:06 AM [facility] REPOSITORY [facility] [address] [place] [address] OFFICE VISIT Date of Service: 12/09/17 MR#: [id number] Acct: [id number] Name: GAIL LACEY Rep #: [id number] : 1985 Provider: Jose Robertson MD Age/Sex: 32/F Location: [facility] Status: Signed Intake Vital Signs12/09/17 Height 5 ft 8 in 12/09/17 Weight: 241 lb 6 oz Intake Visit Reasons: evaluation breast reconstruction 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 Required: No Accompanied by: Friend Is patient in pain?: Yes (CONSTANT BETWEEN SHARP AND DULL ) Pain scale (1-10): 5 Allergies hydromorphone [From Dilaudid] Allergy (Severe, Verified 12/27/17 11:54) Laryngospasms morphine Allergy (Severe, Verified 12/27/17 11:54) chest tightening TAPE Adverse Reaction (Mild, Uncoded 12/09/17 13:37) Other Medications Diazepam [Valium] See Label Instructions PO .4x/day prn PRN 01/03/18 [History Confirmed 01/03/18] Fentanyl 25 mcg TD Q3D 01/03/18 [History Confirmed 01/03/18] Gabapentin [Neurontin] 300 mg PO BID 01/03/18 [History Confirmed 01/03/18] Oxycodone HCl/Acetaminophen [Percocet 5-325] See Label Instructions PO .4x/day prn PRN 01/03/18 [History Confirmed 01/03/18] Pentoxifylline [Trental] 400 mg PO BID 01/03/18 [History Confirmed 01/03/18] Tamoxifen Citrate [Nolvadex] 20 mg PO QHS 01/03/18 [History Confirmed 01/03/18] Vitamin E 400 unit PO QHS 01/03/18 [History Confirmed 01/03/18] PFSH Medical History Anxiety (Acute) Asthma (Acute) BLADDER/URINARY TRACT INFECTION (Acute) Breast cancer (Acute) Carpal tunnel syndrome (Acute) Depression (Acute) Headache (Acute) Hives (Acute) Immunodeficiency (Acute) NEUROPATHY AFTER ARM SURGERY (Acute) NON HEALING POST- LUMPECTOMY SEROMA ULCER LEFT BREAST (Acute) Neutropenia (Acute) Pneumonia (Acute) Polycystic ovary (Acute) Psychiatric disorder (Acute) Sleep apnea (Acute) Thyroid disease (Acute) Vitamin D deficiency (Acute) med port placement (Acute) Surgical History HOSPITAL FEBRILE NEUTROPENIA DISCHARGED 07/14/2017 (Acute) History of lumpectomy (Acute) History of partial mastectomy of left breast (Acute 03/2017) PORT PLACEMENT (Acute 04/2017) Plantar wart (Acute 2007) SURGICAL PREPARATION LEFT LATERAL BREAST (Acute) [place] teeth extracted (Acute) Family History Mother Psychiatric disorder Thyroid disorder Father Hyperlipidemia Hypertension Father Heart disease Aunt Seizures Grandmother Cancer Colon cancer Grandfather Diabetes Heart disease Social History Smoking Status: Former smoker alcohol intake: never what type of physical activity do you participate in: none seatbelt use: always do you feel safe at home: Yes additional social history: SUN EXPOSURE: RARELY HPI evaluation breast reconstruction: Details: HISTORY OF PRESENT ILLNESS 32 year old woman presents with increasing pain in her left lateral breast after having undergone radiation therapy for breast cancer. She was first diagnosed with left breast cancer and underwent a lumpectomy and sentinel lymph node biopsy in 04/03. 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 She was started on IV chemotherapy with difficulties with pancytopenia and thrombocytopenia. It was noted that she had difficulty with the lumpectomy incision since the surgery. She developed a post-lumpectomy seroma ulcer that necessitated surgical intervention on 08/05/17 where she underwent surgical preparation left lateral breast with incision and drainage and excision nonhealing post-lumpectomy seroma ulcer with 9 cm complex secondary wound closure. It healed without issues initially. Operative culture showed Anaerobic cocci and she was treated with antibiotics. The incision has remained healed, but she has developed increasing pain in the area of the lateral incision and extending laterally onto the chest wall and axillary area. The symptomatology has worsened since the radiation was done. She states she has trouble taking care of her children because of the pain. She tries to take very little pain medication because she wants to be alert with her children. However it has started to affect her ability to get sleep at night secondary to the pain. I had discussed with her that she has increased edema from the radiation therapy which is aggravating the scar tissue on her chest wall from her previous seroma surgery. I have ordered an MRI to look for any findings to support her symptomatology. The MRI is on hold because the insurance would like the patient obtain a mammogram and ultrasound. These are scheduled for tomorrow. Since the radiation has been completed, she was placed on Tamoxifen. While on the Tamoxifen, she experiences epigastric pain. When she takes the Tamoxifen at night, then she is able to sleep through the night because she is sleeping when she experiences the epigastric pain from the Tamoxifen. She presents at this time for further evaluation and treatment. 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 Pneumonia STEVE Chronic back pain Nonhealing post-lumpectomy seroma ulcer left lateral breast Chemotherapy induced neutropenia PAST SURGICAL HISTORY: [place] teeth 2002 all 4 Planter Wart 2007 Partial Mastectomy 04/06/17 - getting chemotherapy and will follow with radiation therapy Port Placement 05/03 Hospital-Febrile Neutropenia discharged 07/14/17 Occasional psychiatric hospitalized [id number] surgical preparation left lateral breast with incision and drainage and excision nonhealing post-lumpectomy seroma ulcer with 9 cm complex secondary wound closure - 08/05/17 MEDICATIONS Valium. Percocet. Trental. Tamoxifen. Vitamin E. ALLERGIES Dilaudid. Morphine. Tape. FAMILY HISTORY: Mother (biol.) - Has Family History of Depression Mother (biol.) - Has Family History of Thyroid Disorder Mother (biol.) - Has Family History of Psychiatric Care Father (biol.) - Has Family History of Hypertension Father (biol.) - Has Family History of High Cholesterol Aunt - Has Family History of Seizures PGM - Has Family History of Other Cancer PGF - Has Family History of Diabetes PGF - Has Family History of Heart Disease PGM - Has Family History of Colon Cancer SOCIAL HISTORY: Drug Use - no Patient is a former smoker. Patient does not drink alcohol. REVIEW OF SYSTEMS General - Denies fever. Has some weight loss and fatigue. Eyes -Denies: Pain HEENT - Denies: Nasal Congestion, Sore Throat Cardiovascular - Denies Chest Pain. Has fatigue. Denies shortness of breath with exertion. Respiratory - patient is a former smoker.. Denies: Cough, Shortness of Breath Gastrointestinal - Has Constipation, Diarrhea. Denies: Nausea, Vomiting Genitourinary - Denies: Frequency, Hematuria Musculoskeletal - Reports: Back Pain, - - has left lateral rib pain. Denies: Hand Pain, Leg Pain, Muscle pain, Neck Pain Skin - Has lumpectomy scar left lateral breast with pain. Pain also radiates laterally onto left lateral rib pain and axillary rib pain. Neuro - Has Headaches Psych - Has Anxiety, Depression Endocrine - Denies Polydipsia, Polyuria Hematologic - Denies Easy Bruising, Hx of blood clot PHYSICAL EXAMINATION General - Alert and oriented. Her bra size is D-DD. HEENT - PERRLA, EOMI Neck - Supple and nontender. No cervical adenopathy. Chest wall - There is tenderness to palpation in the left lateral chest wall over the ribs and extending onto the axillary area. No fluctuance or purulent drainage. Breasts - There is a left lateral breast scar from lumpectomy in 04/03. There is an indentation deformity. Very tender to palpation. The left breast is tender to palpation mostly laterally. No redness. Increased swelling and edema especially around the nipple areolar complex area. No fluctuance. The right breast is a little larger. Slight Stage II ptosis. Lungs - Clear to auscultation Heart - Regular rate, Regular Rhythm Abdomen - Soft, Non-Distended Extremities - No clubbing, No cyanosis, No edema, Peripheral Pulses Normal Lymphatic - no axillary adenopathy. Neuro - Cranial nerves II-XII grossly intact Psych - Normal Affect, Appropriate ASSESSMENT 1. Left breast cancer. 2. s/p lumpectomy with chemotherapy and radiation therapy. 3. Post-lumpectomy painful indentation scar contour deformity left lateral breast. 4. Late effect radiation left breast. 5. Disproportion reconstructed left breast. 6. Post-lumpectomy infected seroma left lateral breast. 7. Epigastric pain. Awaiting her mammogram and ultrasound. Her pain is increasing. Would like to obtain an MRI eventually to look for a finding that may support her symptomatology. Because of the large size of her breasts coupled with extensive scar tissue from previous debridements of her infected seroma on the left, I discussed with the patient that the radiation can lead to increased swelling and edema initially which can aggravate the scar tissue fibrosis on her chest wall. Should resolve with time. However, with the increasing pain, she is looking for anything that can be done that will improve her symptomatology now. I will add Neurontin for any burning nerve pain that she is having, (60 tabs) with a refill. I renewed her Percocet for pain (30 tabs). She states she takes it at night after her kids are in bed. With the amount and severity of her painful symptomatology, she may benefit from HBO treatments which will help with her radiation soft tissue damage. This may help her symptomatology. If not much improvement, she may need further operative incision and drainage of her previous infected seroma. Her last surgery resulted in a large cavity. So if further incision and drainage and excisional debridement is necessary, I anticipate an even larger cavity. So at that point I would leave the wound open and proceed with wound care with the VAC. I would still recommend HBO treatments after the surgery. As a last resort, if the pain is persistent despite time and HBO treatments, and surgical I AND D and if the radiation effects lead to further firmness and fibrosis of the breast tissue, then would proceed with completion mastectomy. Then once her symptomatology is under better control, we can discuss her breast reconstruction options. Her breasts are large enough before the breast cancer, that she was a candidate for breast reduction. She would like a breast reduction on the right breast if necessary to help with symmetry. Also a breast reduction would help with the back pain that is exacerbated with the increased asymmetry from a completion mastectomy on the left. Because of the radiation therapy late effects on the left breast, HBO treatments would help to soften the fibrosis and increase vascularity to the tissue to help maximize further reconstruction efforts. Also bringing in non-radiated tissue to the left breast would be necessary such as the latissimus dorsi flap or the abdominal TRAM flap. After healing has occurred, small cohesive gel implants can be placed if needed. If surgery is performed, the patient was informed of the risks and complications of the procedure including alternatives to surgery. These were discussed with her personally. She voices and wishes to proceed with the current plan of medication and radiological studies before deciding on further surgery. With regard to her epigastric pain with the use of Tamoxifen, she will check with her PCP for evaluation to a general surgeon for upper and lower endoscopy. Followup 2-3 weeks after her studies are completed. Assessment AND Plan Problems 1. Personal history of malignant neoplasm of breast Z85.3 2. Pain of left breast N64.4 3. Disproportion of reconstructed breast N65.1 4. Deformity of reconstructed breast N65.0 5. Late effect of radiation T66.XXXS 6. Other specified complications of surgical and medical care, not elsewhere classified, subsequent encounter T88.8XXD 7. Intermittent epigastric abdominal pain R10.13 Orders Orders: Medications Discontinued: oxycodone-acetaminophen 5-325 mg (Percocet) 5 mg PO .4x/day prn 30 tabs 0RF Kelly D Kimbrough Discontinued Reason: Order edited - Discontinu ing original order Coding Level of Care Code Off vis,est,level 4 Diagnoses Personal history of malignant neoplasm of breast Z85.3 Pain of left breast N64.4 Disproportion of reconstructed breast N65.1 Deformity of reconstructed breast N65.0 Late effect of radiation T66.XXXS Other specified complications of surgical and medical care, not elsewhere classified, subsequent encounter T88.8XXD Intermittent epigastric abdominal pain R10.13 01/05/18 0106 <Electronically signed by Jose Robertson MD> Date Jose Robertson MD Cosigner Signature: Date (if applicable) CC: Kaden Robles MD BREAST MASTECTOMY Observed: 01/04/2018 Status: F Source: [place] (CHOOSE SIDE 7:30 AM [facility] REPOSITORY Patient: GAIL LACEY : 1985 (32/F) Acct Num: [id number] Phys: Marcelo TREVIZO,Jose Unit Num: [id number] Loc: MS2 [id number] Specimen: [id number] Received: 01/05/18821 Spec Type: BREAST TISSUES TISSUES: Left breast, NOS GROSS DESCRIPTION Received in fixative is one container labeled with the patient's name and designated left breast. The specimen consists of a left breast mastectomy measuring 20 x 18 x 6 cm and weighing 904 gm. The anterior surface consists of an irregular fragment of pink-hernandez skin measuring 11 x 9 cm and consisting of an areola and nipple along one edge. The nipple measures 1.5 x 1.5 x 1.2 cm. Present free in the container is an irregular fragment of hernandez-yellow fibrofatty tissue measuring 7.8 x 7 x 4 cm and weighing 77.6 gm. This fragment contains a skin fragment measuring 5 x 1.5 cm with a healing scar. Serial sections of this smaller fragment reveal yellow to white cut surfaces and a cyst measuring 1.2 cm in greatest dimension. No orientation is provided. Knot Bumper sections from this fragment of tissue are submitted in cassettes 1-4. The mastectomy specimen is not oriented. The noncutaneous surgical surfaces are inked in black ink. Serial sections reveal yellow to white cut surfaces. No distinct mass lesion, cyst or changes of previous biopsy are seen. Dense white-pink tissue is noted close to one peripheral margin. Knot Bumper sections from the mastectomy fragment are submitted in cassettes 5-12 as follows : 5 nipple and areola, 6-10 indurated tissue at periphery of specimen, 11 AND 12 treasury representative sections from mid portion of specimen. / AM:sharon 01/05/18 TC :5 CPT: 92551 HEADER OPERATION: Revision left breast reconstruction with excision painful indentation scar PRE-OP DIAGNOSIS: Post lumpectomy painful indentation scar contour deformity left lateral breast TISSUE SUBMITTED: Left breast MICROSCOPIC DESCRIPTION Slides are reviewed. MICROSCOPIC DIAGNOSIS Left breast, mastectomy: Focal chronic inflammation, fibrosis and foreign body giant cell reaction, consistent with previous biopsy site. Skin, areola and nipple, no pathologic diagnosis. Negative for malignancy in the sections examined. SJ:sharon 01/06/18 Signed Zaheer Moura 01/06/18 <signature on file> Performed By: #### PBREAST #### [facility] [address] [place], [address] CBC W/DIFF, AUTOMATED Collected: 01/04/2018 Status: F Source: [place] 7:05 [facility] REPOSITORY TYPE CODE TESTS RESULT OUT OF RANGE REFERENCE UNITS LAB L100.1000 4.4-11.0 K/mm3 Low WBC 4.1 LAB L100.1200 4.2-5.4 M/mm3 Low RBC 3.54 LAB L100.1300 12.0-15.0 g/dl Low HGB 10.4 LAB L100.1400 37-47 % Low HCT 31.0 LAB L100.1500 81-99 fL Normal MCV 87.6 LAB L100.1600 27.0-32.0 pg Normal MCH 29.4 LAB L100.1700 32-36 g/gl Normal MCHC 33.5 LAB L100.1810 11.6-14.6 % Normal RDW CV 12.8 LAB L100.1820 35.1-43.9 fl Normal RDW SD 41.1 LAB L100.1900 150-450 K/mm3 Low PLT 110 LAB L100.2000 6.2-12.0 fl Normal MPV 8.1 LAB L100.2100 47-70 % Normal NEUT% 65.0 LAB L100.2200 19-41 % Normal LY% 24.7 LAB L100.2300 0-10 % Normal MONO% 6.9 LAB L100.2400 0-5 % Normal EO% 3.0 LAB L100.2500 0-1 % Normal BASO% 0.2 LAB L100.2550 0.0-0.9 % Normal IM GRAN % 0.200 Result Comment: IG% - Immature Granulocytes (promyelocytes, myelocytes and metamyelocytes) > 1% indicates that a LEFT SHIFT is Present. LAB L100.2620 2.0-7.7 X10 3/uL Normal Absolute Neut 2.6 LAB L100.2720 0.83-4.51 X10 3/ul Normal Absolute Lymph 1.00 Performed By: #### L100.0100, L300.4310 #### [facility] [address] [place], [place], [id number] PARTIAL THROMBOPLAST Collected: 01/04/2018 Status: F Source: [place] TIME 7:05 AM [facility] REPOSITORY TYPE CODE TESTS RESULT OUT OF RANGE REFERENCE UNITS LAB L300.4310 24.1-36.2 Seconds Normal PTT 27.3 Performed By: #### L100.0100, L300.4310 #### [facility] [address] [place], [address] Observed: 01/04/2018 Status: F Source: [place] RUBY, DEEP WOUND 12:00 AM [facility] REPOSITORY Order Date: 05/19/17 Comments: COLLECTED IN OR- LEFT BREAST TISSUE Gram Stain Gram Stain Rare White Blood Cells No organisms seen Wound Culture ORGANISM 1: Staphylococcus aureus Amount Growth Very Rare Staphylococcus aureus: REACTION Benzylpenicillin NF >=0.5 R Cefoxitin *NF - Clindamycin $$ <=0.25 S Inducable Clindamycin Resistan - Erythromycin $ <=0.25 S Gentamicin $ <=0.5 S Levofloxacin $ 0.25 S Linezolid $$$$ 2 S Moxifloxicin *NF <=0.25 S Oxacillin NF <=0.25 S Tigecycline $$$$ <=0.12 S Rifampin $$ <=0.5 S Tetracycline NF <=1 S Trimethoprim/Sulfametho $ <=10 S Vancomycin $ 1 S (NF) indicates non-formulary drug at [facility]. Approval by Infectious Disease Specialist required before non-formulary drugs may be ordered and/or dispensed. * CLSI guidelines does not recommend testing of cephalosporins. This interpretation is deduced from Beta-lactam/penicillin results. Cult, Anaerobic No growth in 5 days. Performed By: #### M100.1500 #### [facility] [address] [place], [address] Observed: 01/04/2018 Status: F Source: [place] RUBY, FUNGUS W/ 12:00 [facility] [id number] REPOSITORY Comments: COLLECTED IN OR- LEFT BREAST TISSUE Is this test to exclude patient from TB Isolation? N Josefina,[id number] [facility] ORIGINAL REPORT ON FILE IN LAB CONTAINS ADDITIONAL TEST SITE INFORMATION. CUF No yeast or mold isolated after [address] TESTING PERFORMED AT [facility]. ORIGINAL REPORT ON FILE IN LAB CONTAINS ADDITIONAL TEST SITE INFORMATION. Fungus Stain No yeast or mold observed. Performed By: #### M600.1900 #### [facility] [address] [place], [place], [address] ,URINE Collected: 01/03/2018 Status: F Source: [place] 10:35 PM [facility] REPOSITORY TYPE CODE TESTS RESULT OUT OF REFERENCE UNITS RANGE LAB L400.8000 Negative Normal HCGUQUAL Negative Result Comment: Very dilute urine specimens, as indicated by a low specific gravity, may not contain treasury representative levels of hCG. If is still suspected, a first morning urine specimen should be collected 48 hours later and tested. Performed By: #### L400.7600 #### [facility] [address] [place] [address]. [place], [address] CBC-COMPLETE BLOOD CNT Collected: 01/03/2018 Status: F Source: [place] NO DIFF 11:10 AM [facility] REPOSITORY TYPE CODE TESTS RESULT OUT OF RANGE REFERENCE UNITS LAB L100.1000 4.4-11.0 K/mm3 Normal WBC 4.8 LAB L100.1200 4.2-5.4 M/mm3 Low RBC 3.52 LAB L100.1300 12.0-15.0 g/dl Low HGB 10.3 LAB L100.1400 37-47 % Low HCT 30.6 LAB L100.1500 81-99 fL Normal MCV 86.9 LAB L100.1600 27.0-32.0 pg Normal MCH 29.3 LAB L100.1700 32-36 g/gl Normal MCHC 33.7 LAB L100.1810 11.6-14.6 % Normal RDW CV 12.8 LAB L100.1820 35.1-43.9 fl Normal RDW SD 41.2 LAB L100.1900 150-450 K/mm3 Low PLT 115 LAB L100.2000 6.2-12.0 fl Normal MPV 8.0 Performed By: #### L100.0500, L101.9900 #### [facility] [address] [place], [address] ERYTHROCYTE SED RATE Collected: 01/03/2018 Status: F Source: [place] 11:10 AM [facility] REPOSITORY TYPE CODE TESTS RESULT OUT OF RANGE REFERENCE UNITS LAB L102.0000 0-20 mm/hr Normal SED RATE < 1 Performed By: #### L100.0500, L101.9900 #### [facility] [address] [place], [address] COMPREHENSIVE METABOLIC Collected: 01/03/2018 Status: F Source: [facility] 11:10 AM [facility] REPOSITORY TYPE CODE TESTS RESULT OUT OF RANGE REFERENCE UNITS LAB L501.0100 74-106 mg/dL Normal GLU 87 Result Comment: Please note revised GLUCOSE reference range effective 2017. LAB L501.1000 7-18 mg/dL Normal BUN 15 LAB L501.1100 0.55-1.02 mg/dL Normal CREAT,SERUM 0.92 Result Comment: The validity of the calculated GFR AND GFRAA in patients over 70 years has not been determined. Clinical correlation is essential. LAB L501.1110 >60 mL/min Normal EST GFR 75 Result Comment: Non- GFR Calc LAB L501.1115 >60 mL/min Normal EST GFR - AA 90 Result Comment: GFR Calc LAB L501.1255 ml/min Normal Estimated CRCL 87.74 LAB L501.1300 10-20 RATIO Normal BUN/CRE 16.3 LAB L501.1500 6.4-8. g/dL Low 2 T PROT 6.3 LAB L501.1800 3.2-5. g/dL Normal 0 ALB 3.2 LAB L501.1950 2.2-4. g/dL Normal 2 GLOB 3.1 LAB L501.2000 0.9-2. RATIO Normal 4 A/G 1.0 LAB L501.2200 8.5-10 mg/dL Normal .1 CA 8.6 LAB L501.4100 15-37 U/L Normal AST 29 LAB L501.4305 45-117 U/L Normal ALK P 78 LAB L501.4405 13-56 U/L Normal ALT 52 Result Comment: Please note revised ALT reference range effective 2017. LAB L501.4600 0.20-1.00 mg/dL Normal T BILI 0.30 LAB L501.5300 136-145 mmol/L Normal NA 141 LAB L501.5600 3.5-5.1 mmol/L Normal K 3.8 LAB L501.5900 98-107 mmol/L Normal CL 105 LAB L501.6100 21.0-32.0 mmol/L Normal CO2 28.0 LAB L501.6200 5-15 Normal GAP 8 Performed By: #### L500.4050, L501.6710, L506.0500 #### [facility] [address] [place], [place], [id number] CRP Collected: 01/03/2018 Status: F Source: [place] 11:10 AM [facility] REPOSITORY TYPE CODE TESTS RESULT OUT OF RANGE REFERENCE UNITS LAB L501.6710 0.0-3.0 mg/L High 4.19 C-REACTIVE PROT Result Comment: C-Reactive Protein (CRP) provides useful information for the diagnosis, therapy and monitoring of inflammatory processes and associated diseases. For the evaluation of Relative Risk for Cardiovascular Disease, a High Sensitivity CRP (HSCRP) should be ordered. Performed By: #### L500.4050, L501.6710, L506.0500 #### [facility] [address] [place], [place], [id number] PREALBUMIN Collected: 01/03/2018 Status: F Source: [place] 11:10 AM [facility] REPOSITORY TYPE CODE TESTS RESULT OUT OF RANGE REFERENCE UNITS LAB L506.0500 20.0-40.0 mg/dL Normal PREALBUMIN 24.8 Performed By: #### L500.4050, L501.6710, L506.0500 #### [facility] [address] [place], [address] THYROID STIM HORMONE Collected: 01/03/2018 Status: F Source: [place] (TSH) 11:10 AM [facility] REPOSITORY TYPE CODE TESTS RESULT OUT OF RANGE REFERENCE UNITS LAB L501.9520 0.358-3.74 uIU/mL High TSH 9.53 Performed By: #### L501.9520 #### [facility] [address] [place], [address] BREAST W/O AND/OR W Observed: 01/03/2018 Status: F Source: [place] CONT BILAT 10:36 AM [facility] REPOSITORY [facility] Imaging Services [address] [place] [address] Breast w/o and/or W Cont Bilat MR#: [id number] Acct: [id number] Name: AMAURYJacquelinGAIL Jordan Rep #: [id number] : 1985 F 32 From: Michael Humphries MD PCP: Kaden Robles MD Status: ADM IN Study: Breast w/o and/or W Cont Bilat Date of Exam: 01/03/18 Exam# [id number] Ordering Dr: Jose Robertson MD STUDY: BILATERAL BREAST MR WITHOUT AND WITH CONTRAST REASON FOR EXAM: Female, 32 years old. History of left breast cancer with seroma after lumpectomy. History of radiation therapy and chemotherapy. TECHNIQUE: Multi-sequence multi-echo imaging of both breasts was performed with a dedicated breast coil. T1-weighted and T2- weighted images were performed before the administration of contrast. T1- weighted images were also performed after the administration of 10 mL of Gadavist contrast intravenously without complications. COMPARISON: Either breast MRI dated July 13, 2017 FINDINGS: RIGHT BREAST: The breast tissue is fatty with mild background enhancement. The seroma cavity has resolved. There is minimal skin thickening and deformity at the seroma site. There are no abnormal enhancing masses or areas of non-mass enhancement in the right breast. LEFT BREAST: The breast tissue is fatty with minimal background enhancement. There are no abnormal enhancing masses or areas of non-mass enhancement in the left breast. There are no enlarged or abnormal lymph nodes. There is no abnormality in the visualized regions of the chest or liver. MRI/Breast w/o and/or W Cont Bilat IMPRESSION: Minimal skin thickening and deformity in the upper outer quadrant of the left breast at the site of the prior surgery/seroma. No other significant abnormality is identified. CATEGORY: BIRADS Category 2: Benign. A letter regarding these results will be sent to the patient by the facility within 30 days. Electronically Signed: Michael Humphries MD at 10:28 EDT , Service support , CC: Kaden Robles MD; Jose Robertson MD Bridge Painter Helper: Signed SURGERY VISIT REPORT Observed: 12/28/2017 Status: F Source: [place] 10:17 AM [facility] [address] [place] [address] OFFICE VISIT Date of Service: 12/22/17 MR#: [id number] Acct: [id number] Name: ABHIJITGAIL A Rep #: [id number] : 1985 Provider: Evangelist Moseley MD Age/Sex: 32/F Location: [facility] Status: Signed Intake Vital Signs12/22/17 Height 5 ft 8 in 12/22/17 Weight: 238 lb 1.588 oz 12/22/17 Body Mass Index (BMI) 36.1 Intake Visit Reasons: Discuss upper and lower scope Chief Complaint: Breast cancer management 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 Required: No Is patient in pain?: No Allergies hydromorphone [From Dilaudid] Allergy (Severe, Verified 12/27/17 11:54) Laryngospasms morphine Allergy (Severe, Verified 12/27/17 11:54) chest tightening TAPE Adverse Reaction (Mild, Uncoded 12/09/17 13:37) Other Medications Ibuprofen [Motrin Ib] 400 mg PO BID 11/15/17 [History Confirmed 12/27/17] Tamoxifen Citrate [Nolvadex] 20 mg PO DAILY 90 Days #90 tab 11/15/17 [Rx Confirmed 12/23/17] diazepam 5 mg tablet See Label Instructions PO .4x/day prn #30 tab 12/04/17 [Rx Confirmed 12/27/17] gabapentin 300 mg capsule 300 mg PO BID #60 cap 12/09/17 [Rx Confirmed 12/27/17] oxycodone-acetaminophen 5 mg-325 mg tablet See Label Instructions PO .4x/day prn #30 tab 12/09/17 [Rx Confirmed 12/27/17] Pentoxifylline [Trental] 400 mg PO TID #90 tab 12/15/17 [Rx Confirmed 12/23/17] Vitamin E 400 unit PO DAILY #30 cap 12/15/17 [Rx Confirmed 12/23/17] [facility] Medical History Anxiety (Acute) Asthma (Acute) BLADDER/URINARY TRACT INFECTION (Acute) Breast cancer (Acute) Carpal tunnel syndrome (Acute) Depression (Acute) Headache (Acute) Hives (Acute) Immunodeficiency (Acute) NEUROPATHY AFTER ARM SURGERY (Acute) NON HEALING POST- LUMPECTOMY SEROMA ULCER LEFT BREAST (Acute) Neutropenia (Acute) Pneumonia (Acute) Polycystic ovary (Acute) Psychiatric disorder (Acute) Sleep apnea (Acute) Thyroid disease (Acute) Vitamin D deficiency (Acute) med port placement (Acute) Surgical History HOSPITAL FEBRILE NEUTROPENIA DISCHARGED 07/14/2017 (Acute) History of lumpectomy (Acute) History of partial mastectomy of left breast (Acute 03/2017) PORT PLACEMENT (Acute 04/2017) Plantar wart (Acute 2007) SURGICAL PREPARATION LEFT LATERAL BREAST (Acute) [place] teeth extracted (Acute) Family History Mother Psychiatric disorder Thyroid disorder Father Hyperlipidemia Hypertension Father Heart disease Aunt Seizures Grandmother Cancer Colon cancer Grandfather Diabetes Heart disease Social History Smoking Status: Former smoker alcohol intake: never what type of physical activity do you participate in: none seatbelt use: always do you feel safe at home: Yes additional social history: SUN EXPOSURE: RARELY HPI HPI HPI: GAIL LACEY, is a 32 F who presents to the office today for evaluation of GERD symptoms. Patient has following up after taking tamoxifen and Herceptin and notices significant increases in heartburn symptoms. She noted that when beginning tamoxifen and taking in the morning she had significant decrease in appetite as well as epigastric pain. She denies any dyspnea hot flashes sweats. She has a paternal grandmother with colon cancer and a father with polyps. ROS General General: Yes fatigue and breast cancer; no weight change, appetite, colon cancer or weakness HEENT HEENT: No difficulty swallowing, eye injury, eye surgery, swollen glands or hoarseness Endo Endocrine: Yes thyroid disease; no diabetes mellitus, thyroid cancer, Hair loss, heat intolerance or cold intolerance Skin Skin: No rash or changing moles Breast Breast: No left breast lump, right breast lump, nipple discharge, breast pain, abnormal mammogram, abnormal US or breast enlargement Musc Musculoskeletal: Yes back problems; no arthritis, rheumatoid arthritis, gout or joint pain Cardio Cardiovascular: No murmur, pacemaker, heart disease, atrial fibrillation, high blood pressure, heart attack, heart stent, palpitations, shortness of breat with exertion or chest pain Psych Psychiatric: No depression, anxiety or hearing voices Resp Respiratory: Yes sleep apnea, Yes asthma, No shortness of breath, No cough, No COPD, No emphysema, No wheezing Gastro Gastrointestinal: No abdominal pain, No nausea or vomiting, No diarrhea, No constipation, No blood in stool, No acid reflux, No hemorrhoids, No ulcers, No gallbladder problem, No black,tarry stools Geovanni Hematologic: No blood thinners, No blood disorders, No bleeding, No anemia, No blood clots Neuro Neurologic: No system reviewed and no additional complaints, except as docu, No as per HPI, No abnormal walking, No abnormal hearing, No abnormal movements, No abnormal speech, No behavioral changes, No burning sensations, No confusion, No seizure-like activity, No unsteadiness, No dizziness, No localized weakness, No frequent falls, No headache(s), No lack of coordination, No loss of vision, No memory loss, No numbness, No other visual disturbances, No radiating pain, No restless legs, No sensory deficit, No fainting, No tingling, No tremor(s), No weakness, No other Exam Const General: well developed, no acute distress, well hydrated Orientation: oriented to person, oriented to place, oriented to time [facility] Head: normocephalic, atraumatic Ears: external ears normal Mouth: moist mucous membranes Eyes Sclera: sclerae normal Pupils: normal by confrontation Neck Neck: no lymphadenopathy noted Neck mass: No Thyroid: symmetrical, thyroid normal Chest Chest palpation AND inspection: normal inspection of the chest Breast Palpation: No nipple discharge Resp Effort AND Inspection: normal respiratory effort Auscultation: clear to auscultation bilaterally Percussion: percussion normal Cardio Rate: regular rate Rhythm: regular rhythm Heart Sounds: no murmurs GI Palpation: soft, no masses, no hepatosplenomegaly, nontender Rectal Exam: other Other: Rectal exam deferred. Extrem General: no clubbing, cyanosis or edema, normal to inspection Assessment AND Plan Problems 1. Gastroesophageal reflux disease, esophagitis presence not specified K21.9 2. Family history of colon cancer Z80.0 Plan I have discussed the above with the patient. I have offered the patient colonoscopy, and esophago-gastroduodenoscopy with biopsy for evaluation. I have explained the risks/benefits of the procedure and described the procedure. I have discussed the risks with the patient, including but not limited to: infection, bleeding, perforation of the GI tract requiring emergency surgery, inability to complete the procedure, injury to any internal organs, complications of anesthesia, etc. - the patient understands and agrees to proceed. I have answered all the patient's questions to the patient's satisfaction and the patient has no further questions. The patient has been given instructions for the colon cleansing preparation. Coding Level of Care Code Off vis,new,level 3 Diagnoses Gastroesophageal reflux disease, esophagitis presence not specified K21.9 Esophagitis presence: esophagitis presence not specified Family history of colon cancer Z80.0 12/28/17 1017 <Electronically signed by Evangelist Moseley MD> Date Evangelist Moseley MD Cosigner Signature: Date (if applicable) CC: Kaden Robles MD ONCOLOGY VISIT REPORT Observed: 12/27/2017 Status: F Source: [place] 12:20 PM [facility] REPOSITORY [facility] [place] [address] OFFICE VISIT Date of Service: 12/27/17 1129 MR#: [id number] Acct: [id number] Name: GAIL LACEY Rep #: [id number] : 1985 From: Owen Edouard MD Age/Sex: 32/F Location: [facility] Status: Signed - Problem List (1) Cancer of left female breast Status: Acute Qualifiers: Estrogen receptor status: positive - Date of Service Date of Service:: 12/27/17 - Chief Complaint Breast cancer on treatment - History of Present Illness Patient is a 32-year-old premenopausal female who presented with an abnormal left nipple discharge, February 2017 a diagnostic mammogram followed by an ultrasound showed an abnormality that was confirmed on biopsy on March 16 to represent an invasive ductal cancer. On April 06, 2017 the patient underwent a left partial mastectomy with sentinel lymph node biopsy with a final pathology showing an infiltrating ductal carcinoma measuring 1.2 cm in maximum diameter poorly differentiated, grade 3, ER negative, KS weak positive, Her- 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 Margins were negative for both invasive and noninvasive cancer. Patient started systemic adjuvant therapy under the care of in [facility] on May 18, 2017. She received her third cycle of treatment on July 02, 2017 with delays due to pancytopenia especially thrombocytopenia. Starting with her third cycle she required growth factor support with Leukine daily injections (as per her insurance authorization). During her infusions she experienced effusions related reactions including shortness of breath flushing back pain that required premedication with H1, H2, steroid medication and slowing down the infusion rate to several hours. She also experienced side effects of hair loss, abnormal taste, mouth sores, bony pains with Leukine. No fevers or infectious complications to date. Pretreatment cardiac evaluation was by echo that reportedly showed an normal LVEF of 60%. Pre-adjuvant chemotherapy evaluation also included a brain MRI due to history of headaches that showed no evidence of metastatic disease and abnormal liver functions that showed fatty liver. Reportedly patient was offered fertility preservation consultation prior to therapy but she declined. Her had vasectomies, pretreatment test was negative and she reports no menses Since May 2017. She reported that her wound healing was protracted. Patient was seen in initial consultation July 09, 2017 wishing to transfer care to [place] for proximity to residence. Treatment: - TCH X6 cycles 8-08/2017- (delays due to delayed wound healing, cytopenias and febrile neutropenia). - Herceptin maintenance 10/04/2017 - Tamoxifen 11/15/2017- Adjuvant radiation therapy; 4256 cGy of mixed 6, 10, and 15 MV photons in 16 fractions to the left breast with a 3D conformal technique consisting of MONEGASQUE, LPO, and MONTERO carmen with field and field to improve dose homogeneity. A sequential boost consisting of 1000 cGy of mixed 10 and 15 MV photon in 4 fractions was delivered to the lumpectomy bed with a 3D conformal technique consisting of MONEGASQUE and LPO carmen. This brought the total dose delivered to 5256 cGy in 20 fractions. Patient was treated in the prone position to limit dose to the heart and lungs. Date of First Treatment: 10/13/2017 Date of Last Treatment: 11/10/2017 - Past Medical/Social History Past Medical History Past Medical History: Anxiety,Asthma,Breast problem,Depression, Headaches,Immunodeficiency,Pneumonia,Sleep apnea ,Thyroid disease,Neutropenia,Psychiatric disorder,Vitamin D deficiency Other Past Medical History: fatty liver Cancer: Breast cancer Past Surgical History Surgical: Lumpectomy Other Surgical History: WISDOM TEETH 2002 X 4 LEFT BREAST LUMPECTOMY 04/06/17 DEBRIDEMENT OF LEFT BREAST WOUND POST OP 08/03 Family History Paternal Past Medical History: Heart disease,Hyperlipidemia Maternal Past Medical History: Thyroid disease,Psychiatric disorder Social History Smoking Status Former smoker Review of Systems Constitutional:: Reports: - - Minimal if any hot flashes, and frequent. 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 Was seen by CRUCIBLE FURNACE TENDER.. Denies: Dysuria, Hematuria, Flank pain Musculoskeletal:: Reports: Back pain - Chronic unchanged. Denies: Myalgia, Arthralgia Skin: Denies: Rash, Skin Changes, Wounds Neurological:: Denies: Headache, Dizziness, Visual changes, Tinnitus, Hearing loss Psychiatric: Denies: Anxiety, Depression, Homicidal Ideations, Suicidal Ideations Comment: Still has pain at the breast surgery site following up was Dr. Robertson Vital Signs Height 5 ft 8 in Weight: 108.912 kg Weight in Pounds 240.1 lbs BMI 36.4 Pulse Ox 99 - Physical Exam General: Alert, Oriented x3, No apparent distress, - - ECOG 0-1 Obese HEENT: Atraumatic, PERRLA, EOMI, Normocephalic Oropharynx:: Dry mucosa Neck:: Supple, Trachea midline, - - Port okay. Negative for: JVD, bilateral Cardiac:: Regular rate, Regular rhythm, Normal S1, Normal S2. Negative for: Murmur Lungs: Clear to auscultation, Excusion symmetrical. Negative for: Rhonchi, Wheezes Abdomen:: Soft, Non-tender, Non-distended. Negative for: Hepatosplenomegaly Extremities:: Negative for: Cyanosis, Edema Neurological: Neuro grossly intact Skin:: Negative for: Lesions, Rash, Petechiae, Ecchymosis Psychiatric:: Appropriate affect, Euthymic Lymphatics:: Negative for: Cervical lymphadenopathy, Supraclavicular lymphadenopathy, Axillary lymphadenopathy Laboratory Data: Reviewed in EMR Laboratory Tests WBC 3.2 L Hgb 11.0 L Hct 32.2 L Plt Count 89 L Absolute Neuts (auto) 1.9 L Diagnostic Data: December 23, 2017 cardiac ejection fraction by echo normal at 60% Assessment and Plan 32-year-old premenopausal female with invasive ductal cancer of the left breast stage I (T1c, N0, M0) high-grade G3, ER negative, KS weak positive, HER- 2 positive. Patient is status post partial mastectomy with sentinel lymph node biopsy April 06, 2017. She received adjuvant systemic chemotherapy with TCH May through August 2017, . Delays of treatment has occurred due to delayed wound healing, cytopenias and intercurrent illnesses (Febrile neutropenia, URTI, and dental infection) Started 1 year maintenance of Herceptin October 04, 2017. Received adjuvant radiation therapy September 2017 through October 2017. Started adjuvant Tamoxifen 11/15/2017, well-tolerated. Plan: 1. Continue with 1 year maintenance Herceptin. 2. Continue adjuvant hormonal therapy with tamoxifen . Patient is premenopausal at Dx. Treatment will be for 5-10 years depending on tolerance. 3. Monitoring of cardiac function with echo every 3 months next one due first week in March 2018. Impression and plan discussed with patient.. Follow-up in 3 weeks Medications: Prescriptions This Visit Medication Instructions Recorded Ibuprofen [Motrin Ib] 400 mg PO BID 11/15/17 Primary Care Provider: Kaden Robles MD Referring Provider: 12/27/17 1220 <Electronically signed by Owen Edouard MD> Date Owen Edouard MD Cosigner Signature: Date (if applicable) CC: CBC W/DIFF, AUTOMATED Collected: 12/27/2017 Status: F Source: [place] 11:33 AM [facility] REPOSITORY Order Comment: Reason for Laboratory Test PRE-CHEMO TYPE CODE TESTS RESULT OUT OF RANGE REFERENCE UNITS LAB L100.1000 4.4-11.0 K/mm3 Low WBC 3.2 LAB L100.1200 4.2-5.4 M/mm3 Low RBC 3.71 LAB L100.1300 12.0-15.0 g/dl Low HGB 11.0 LAB L100.1400 37-47 % Low HCT 32.2 LAB L100.1500 81-99 fL Normal MCV 86.8 LAB L100.1600 27.0-32.0 pg Normal MCH 29.6 LAB L100.1700 32-36 g/gl Normal MCHC 34.2 LAB L100.1810 11.6-14.6 % Normal RDW CV 12.5 LAB L100.1820 35.1-43.9 fl Normal RDW SD 40.0 LAB L100.1900 150-450 K/mm3 Low PLT 89 LAB L100.2000 6.2-12.0 fl Normal MPV 7.6 LAB L100.2100 47-70 % Normal NEUT% 57.7 LAB L100.2200 19-41 % Normal LY% 33.6 LAB L100.2300 0-10 % Normal MONO% 5.0 LAB L100.2400 0-5 % Normal EO% 3.1 LAB L100.2500 0-1 % Normal BASO% 0.6 LAB L100.2550 0.0-0.9 % Normal IM GRAN % 0.000 Result Comment: IG% - Immature Granulocytes (promyelocytes, myelocytes and metamyelocytes) > 1% indicates that a LEFT SHIFT is Present. LAB L100.2620 2.0-7.7 X10 3/uL Low Absolute Neut 1.9 LAB L100.2720 0.83-4.51 X10 3/ul Normal Absolute Lymph 1.08 Performed By: #### L100.0100 #### [facility] [address] [place], [address] COMPREHENSIVE METABOLIC Collected: 12/27/2017 Status: F Source: [place] 11:33 AM [facility] REPOSITORY Order Comment: Reason for Laboratory Test PRE-CHEMO TYPE CODE TESTS RESULT OUT OF RANGE REFERENCE UNITS LAB L501.0100 74-106 mg/dL High GLU 120 Result Comment: Fasting Glucose result from 100 to 125 mg/dL suggests IMPAIRED HOMEOSTASIS per A.D.A. criteria. Please note revised GLUCOSE reference range effective 2017. LAB L501.1000 7-18 mg/dL Normal BUN 16 LAB L501.1100 0.55-1.02 mg/dL Normal CREAT,SERUM 0.97 Result Comment: The validity of the calculated GFR AND GFRAA in patients over 70 years has not been determined. Clinical correlation is essential. LAB L501.1110 >60 mL/min Normal EST GFR 70 Result Comment: Non- GFR Calc LAB L501.1115 >60 mL/min Normal EST GFR - AA 84 Result Comment: GFR Calc LAB L501.1255 ml/min Normal Estimated CRCL 83.21 LAB L501.1300 10-20 RATIO Normal BUN/CRE 16.4 LAB L501.1500 6.4-8. g/dL Normal 2 T PROT 7.0 LAB L501.1800 3.2-5. g/dL Normal 0 ALB 3.5 LAB L501.1950 2.2-4. g/dL Normal 2 GLOB 3.5 LAB L501.2000 0.9-2. RATIO Normal 4 A/G 1.0 LAB L501.2200 8.5-10 mg/dL Normal .1 CA 8.7 LAB L501.4100 15-37 U/L Normal AST 21 LAB L501.4305 45-117 U/L Normal ALK P 83 LAB L501.4405 13-56 U/L Normal ALT 44 Result Comment: Please note revised ALT reference range effective 2017. LAB L501.4600 0.20-1.00 mg/dL Normal T BILI 0.30 LAB L501.5300 136-145 mmol/L Normal NA 143 LAB L501.5600 3.5-5.1 mmol/L Normal K 3.8 LAB L501.5900 98-107 mmol/L High CL 110 LAB L501.6100 21.0-32.0 mmol/L Normal CO2 26.0 LAB L501.6200 5-15 Normal GAP 7 Performed By: #### L500.4050 #### [facility] [address] [place], [address] QUALITY CONTROL SYSTEMS MANAGER OFFICE VISIT Observed: 12/23/2017 Status: F Source: [place] REPORT 2:51 PM [facility] REPOSITORY [facility] [address] [place] [address] OFFICE VISIT Date of Service: 12/23/17 MR#: [id number] Acct: [id number] Name: GAIL LACEY Rep #: [id number] : 1985 Provider: MUSA Sanchez Age/Sex: 32/F Location: [facility] Status: Signed Intake Vital Signs12/23/17 Height 5 ft 8 in 12/23/17 Weight: 238 lb 12/23/17 Body Mass Index (BMI) 36.1 Intake Visit Reasons: BLEEDING AFTER TAKING TAMOXIFEM Is patient in pain?: Yes Pain scale (1-10): 2 Allergies hydromorphone [From Dilaudid] Allergy (Severe, Verified 12/23/17 14:16) Laryngospasms morphine Allergy (Severe, Verified 12/23/17 14:16) chest tightening TAPE Adverse Reaction (Mild, Uncoded 12/09/17 13:37) Other Medications Ibuprofen [Motrin Ib] 400 mg PO BID 11/15/17 [History Confirmed 12/23/17] Tamoxifen Citrate [Nolvadex] 20 mg PO DAILY 90 Days #90 tab 11/15/17 [Rx Confirmed 12/23/17] diazepam 5 mg tablet See Label Instructions PO .4x/day prn #30 tab 12/04/17 [Rx Confirmed 12/23/17] gabapentin 300 mg capsule 300 mg PO BID #60 cap 12/09/17 [Rx Confirmed 12/23/17] oxycodone-acetaminophen 5 mg-325 mg tablet See Label Instructions PO .4x/day prn #30 tab 12/09/17 [Rx Confirmed 12/23/17] Pentoxifylline [Trental] 400 mg PO TID #90 tab 12/15/17 [Rx Confirmed 12/23/17] Vitamin E 400 unit PO DAILY #30 cap 12/15/17 [Rx Confirmed 12/23/17] PFSH Medical History Anxiety (Acute) Asthma (Acute) BLADDER/URINARY TRACT INFECTION (Acute) Breast cancer (Acute) Carpal tunnel syndrome (Acute) Depression (Acute) Headache (Acute) Hives (Acute) Immunodeficiency (Acute) NEUROPATHY AFTER ARM SURGERY (Acute) NON HEALING POST- LUMPECTOMY SEROMA ULCER LEFT BREAST (Acute) Neutropenia (Acute) Pneumonia (Acute) Polycystic ovary (Acute) Psychiatric disorder (Acute) Sleep apnea (Acute) Thyroid disease (Acute) Vitamin D deficiency (Acute) med port placement (Acute) Surgical History HOSPITAL FEBRILE NEUTROPENIA DISCHARGED 07/14/2017 (Acute) History of lumpectomy (Acute) History of partial mastectomy of left breast (Acute 03/2017) PORT PLACEMENT (Acute 04/2017) Plantar wart (Acute 2007) SURGICAL PREPARATION LEFT LATERAL BREAST (Acute) [place] teeth extracted (Acute) Family History Mother Psychiatric disorder Thyroid disorder Father Hyperlipidemia Hypertension Father Heart disease Aunt Seizures Grandmother Cancer Colon cancer Grandfather Diabetes Heart disease Social History Smoking Status: Former smoker alcohol intake: never what type of physical activity do you participate in: none seatbelt use: always do you feel safe at home: Yes additional social history: SUN EXPOSURE: RARELY HPI BLEEDING AFTER TAKING TAMOXIFEM: Details: GAIL LACEY is a 32 year old who presents for endometrial biopsy: on tamoxifen for estrogen positive left breast cancer X 5 weeks. Previous chemo and radiation after surgery. She states bleeding yesterday like regular menses. No menses since chemo April 2017. States having cramping also. with vasectomy and declines UPT. Pregancy History 3 Elective abortions Hx Para 3 Spontaneous abortions Past Pregnancies Del. 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 FOB t n h a n Office Procedures Endometrial Biopsy Endometrial Biopsy Test: Yes declined Consent Signed: Yes Time out checklist: patient, procedure, site marked/identified, positioning of patient, supplies available, allergies confirmed, team agrees on procedure Time out time: 14:33 tenaculum used: No dilator used: No Details: Cervix prepped with betadine and syringe pipelle inserted 8cm into uterus without complication. Specimen obtained and sent to lab for analysis. All instruments removed from vagina without complications. Excellent hemostasis noted. Patient tolerated well. Noted moderate amount dark blood in vault. Assessment AND Plan Problems 1. Dysfunctional uterine bleeding N93.8 2. Care related to current tamoxifen use Z79.810 Plan Will call with pathology results Discussed may be normal menses since stopping chemotherapy but need to confirm no abnormal cells in uterus. RTO for scheduled annual exam next month with Dr. Alcala Orders Orders: Coding Level of Care Code No Charge Diagnoses Dysfunctional uterine bleeding N93.8 Care related to current tamoxifen use Z79.810 Additional Codes Endometrial Biopsy (43928) 12/23/17 9898 <Electronically signed by Karly LARKIN> Date Karly LARKIN Cosigner Signature: Date (if applicable) CC: ECHOCARDIOGRAM COMPLETE Observed: 12/23/2017 Status: F Source: [place] 2:32 PM [facility] REPOSITORY [facility] Cardiovascular Services [address] [address] Echo Complete 12/23/17 1309 MR#: [id number] Acct: [id number] Name: GAIL LACEY Rep #: [id number] : 1985 32 From: Francisco Restrepo MD Attending Dr: Erica Benitez NP Status: REG CLI Ordering Dr: Erica Benitez COMPRESSED YEAST SUPERVISOR-C Date: 12/23/17 Location: [facility] Sex: F C Admitted: Reason For Study: NEOPLASM Procedure This was a 2D Doppler, Color Flow transthoracic echocardiogram. Technically limited exam. Pt was unable to tolerate probe due to severe pain from incision. Exam performed in department. Left Ventricle Normal LV size. Left ventricular systolic function is normal. The estimated ejection fraction is 60 %. No regional wall motion abnormalities noted. Right Ventricle Normal RV size. Normal systolic function. Atria Normal left atrium. Normal right atrium. Mitral Valve Normal mitral valve. Tricuspid Valve Normal tricuspid valve. Aortic Valve Trisinus/trileaflet aortic valve. Pulmonic Valve The pulmonic valve is not well visualized. Great Vessels Normal aortic root. The pulmonary artery is normal size. Normal inferior vena cava. Pericardium/Pleural No pericardial effusion. MMode/2D Measurements AND Calculations LVIDd: 4.5 cm IVSd: 0.75 cm LA dimension: 3.5 cm LVIDs: 3.4 cm LVPWd: 0.79 cm FS: 25.3 % LAV(MOD-bp): 41.3 ml LA A4 area: 15.7 cm2 RA A4 area: 15.1 cm2 LAV(MOD-bp) Indexed: 18.9 ml/m2 LAV(MOD-sp2): 36.2 ml LAV(MOD-sp4): 44.7 ml Doppler Measurements AND Calculations MV E max nash: 60.9 cm/sec PA V2 max: 86.5 cm/sec MV A max nash: 64.4 cm/sec MV E/A: 0.94 Interpretation Summary Normal LV size. Left ventricular systolic function is normal. The estimated ejection fraction is 60 %. The study was technically limited. Ordering Physician: Erica Benitez Referring Physician: KADEN ROLBES Performed By: Lucia Gallardo, BRUNO, RVT 12/23/17 1431 Date Francisco Restrepo MD CC: Kaden Robles MD; Erica Benitez COMPRESSED YEAST SUPERVISOR Date Dictated: 12/23/17 1309 Date Transcribed: 12/23/17 1431 Bridge Painter Helper: Signed ENDOMETRIAL BX/CURETTINGS Observed: 12/23/2017 Status: F Source: [place] 2:20 PM [facility] REPOSITORY Patient: GAIL LACEY : 1985 (32/F) Acct Num: [id number] Phys: Karly Sanchez NP Unit Num: [id number] Loc: [facility] Specimen: [id number] Received: 12/23/17 1705 Spec Type: ENDOM BX/C TISSUES TISSUES: Endometrium, NOS GROSS DESCRIPTION Received is one container labeled with the patient's name and not further designated. The specimen consists of multiple minute fragments of hernandez tissue that in aggregate measure 2.5 x 2 x <0.1 cm. The specimen is totally submitted in one cassette. / AM:sharon 12/24/17 TC:5 CPT: 51389 HEADER OPERATION: Endometrial biopsy PRE-OP DIAGNOSIS: Abnormal uterine bleeding TISSUE SUBMITTED: Endometrial lining MICROSCOPIC DESCRIPTION Slides are reviewed. MICROSCOPIC DIAGNOSIS Endometrial biopsy: Proliferative endometrium with focal glandular and stromal breakdown. SJ:sharon 12/27/17 Signed Zaheer Moura 12/27/17 <signature on file> Performed By: #### PEMB #### [facility] [address] [place], [address] PROGRESS Observed: 12/21/2017 Status: COMPLETED Source: [place] 2:32 PM [facility] OTHER [facility] REPOSITORY HNO ID: [id number] Author: Judy Solares Service: (none) Author Type: Physician Type: Progress Notes Filed: 12/21/2017 3:05 PM Note Text: Chief Complaint: Gail is seen in follow up for psychiatric problem Interim History: Gail has been through a second surgery and has had chemo and radiation over the past months. Her mood has been all over the place but she thinks she is coping very well. She stopped wellbutrin due to insomnia and also weaned herself off of lamictal. She thinks her mood is pretty stable despite everything she is going through. Has had conflict with her sister and mother. She has a good relationship with her and children. Compliant with her cancer medications. Sleep is pretty good. General Observations Appearance:Neatly groomed Demeanor:Cooperative Activity:Normal Eye Contact:Good Speech Rate:Normal Volume:Normal Articulation:Clear Coherent: Yes Spontaneous:Yes Language Naming:Intact Repetition:Intact Mood AND Affect Depression:Mild Anxiety:Mild Anger:None Anhedonia;None Euphoria:None Affect:Full and appropriate to topic Associations:Logical Process:Normal Knowledge: Good Delusion: No0 . Hallucination: No Suicidal Ideation:No suicidal ideation, intent or plan. Homicidal Ideation:No homicidal ideation, intent or plan. Judgement::Critical Insight:True Orientation:Person, Place, Time and Situation Gait and Station:Unsteady Memory:Intact Attention:Good Concentration:Good Review Of Systems Neurological: Sleep: Not great Headache: No Weakness:No Stiffness: No Tremor:No Gastrointestinal: Appetite:Good Nausea: No Bowel movements:N/A Skin rash: No Other : Diagnosis: AXIS I: ASSESSMENT/PLAN: Unspecified Anxiety Disorder major depression, recurrent, moderate Judy Solares MD AXIS II : AXIS III: Condition: Improved Medication: None currently Therapy/ Treatment Plan: Provided support and reassurance. Discussed treatment options. Agree with no psychiatric medications at this time. Plan discussed including risks, benefits, and side effects of medications (ongoing discussion) and patient agreeable to plan, Spent 30 minutes with the patient. Follow up in 3 months Progress note marked as sensitive per patient request Yes. Judy Solares MD ONCOLOGY FOLLOW-UP Observed: 12/10/2017 Status: F Source: [place] VISIT 11:23 AM [facility] REPOSITORY [facility] Medical Records Department [address] [place] [address] Oncology Follow-Up Visit 12/09/17 1603 MR#: [id number] Acct: [id number] Name: GAIL LACEY Rep #: [id number] : 1985 32 From: Devon Xiong DO PCP: Kaden Robles MD Status: REG RCR Y Location: [facility] Date of Service: 12/09/17 Last Clinic Visit: 11/10/17 Diagnosis: Gail Lacey is a 32 year-old pre-menopausal female diagnosed with 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 She received adjuvant radiation therapy consisting of 4256 cGy in 16 fractions to the left breast followed by a boost consisting of 1000 cGy given in 4 fractions to the lumpectomy bed (10/13/17 11/10/17). History of Present Illness: 03/01/2017: Patient completed bilateral diagnostic mammography due to left nipple discharge. There is a focal area of architectural distortion seen in the deep lateral portion of the left breast, BI-RADS Category 0. 03/01/2017: Left breast ultrasound was completed and showed evidence of a 9 x 7 x 12 mm ill-defined hypoechoic density at the 4 o'clock position of the left breast at 6 cm from the nipple which corresponds to the mammographic abnormality, biopsy is recommended BI-RADS Category 4. 03/16/2017: Patient underwent biopsy of the left lower outer quadrant (4 o'clock) breast mass and pathology demonstrated poorly differentiated infiltrating ductal carcinoma (ER 0%, KS 5%, Her2 3+ on IHC). 04/06/2017: Patient underwent lumpectomy of the left breast and sentinel lymph node biopsy. Pathology demonstrated evidence of a 1.2 x 0.9 x 0.9 cm grade 3 infiltrating ductal carcinoma with associated high-grade ductal carcinoma in situ, margins are negative for both invasive and DCIS with closest margin for invasive carcinoma being 0.7 cm and closest margin for DCIS being 0.32 cm, angiolymphatic invasion was not seen a single sentinel lymph node was identified and did not have evidence of metastatic disease. pathologic stage IA (pT1c pN0 (sn) M0). 05/18/2017: Patient was started with systemic adjuvant therapy under the care of Dr. Ferreira in [facility], she received TCH 07/02/2017: She received the third cycle of TCH and required support with Leukine daily injections. 07/10/2017 2 07/13/2017: Patient was admitted for neutropenic fever and found to have a seroma in the left breast. She was evaluated by plastic surgery who felt that there was no need for any intervention and so she was treated with antibiotics. 07/11/2017: Breast ultrasound was performed focused on the 4 o'clock position left breast which demonstrated a septated fluid collection of 2.8 x 2.9 x 1.8 cm there is also noted to be a 1.5 cm left axillary lymph node. 07/13/2017: Bilateral breast MRI was performed due to slight drainage from surgical site. There is a postsurgical seroma identified in the left breast measuring 7 x 2.3 x 1.4 cm, otherwise there are no abnormal masses or lesions found in either breast and there is no evidence for enlarged or abnormal lymph nodes or any abnormality in the visualized chest or liver. 07/29/2017: Patient underwent whole body bone scan which showed normal concentration of radiopharmaceutical throughout the axial and appendicular skeletal system without either a focal decrease or increase in uptake. 08/05/2017: Due to persistent enlarging seroma the patient underwent incision and drainage and excision of the nonhealing postlumpectomy seroma. Pathology demonstrated skin with underlying dense fibroconnective tissue with reactive changes breast tissue is not identified in the sections examined. 09/13/2017: Patient received the sixth cycle of the planned 6 total cycles. 09/18/17: Presented to the ED with intermittent rectal bleeding. She was stable and referred for repeat outpatient labs and possibly an outpatient colonoscopy which was not done given the recent chemotherapy exposure. From 10/13/17 to 11/10/17: She received adjuvant radiation therapy consisting of 4256 cGy in 16 fractions to the left breast followed by a boost consisting of 1000 cGy given in 4 fractions to the lumpectomy bed. Patient was treated in the prone position to limit dose to the heart and lungs and she was treated with concurrent Herceptin. Radiation Treatment History: 1) From 10/13/17 to 11/10/17: She received adjuvant radiation therapy consisting of 4256 cGy in 16 fractions to the left breast followed by a boost consisting of 1000 cGy given in 4 fractions to the lumpectomy bed. Patient was treated in the prone position to limit dose to the heart and lungs and she was treated with concurrent Herceptin. Interval History: Patient presents for initial follow-up following completion of adjuvant radiation therapy about 1 month ago. She reports that the breast heaviness and swelling as well as breast pain has greatly reduced over the last 3-4 weeks. She did take ibuprofen as needed for the last 3-4 weeks but has not taken any for the last 5 days or so. She does report that her skin has also improved and is not nearly as red, she denies having any peeling. She reports that the pain that extends around the left chest wall remains and is at least as severe as it was before making it difficult to wear a bra at this time. She believes her breast still mildly swollen but has improved. She does report improvement in her energy and is still tolerating Herceptin well without any complaints of current toxicities. She denies having any fever/chills, cough, shortness of breath on exertion, unexpected weight loss. As a result of the pain involving the axillary region on the left she was seen by Dr. Robertson today is planning to complete imaging including an MRI but will have to get a mammogram and ultrasound first for insurance reasons. I have reviewed the medical, surgical, and other pertinent history in details and have updated medication and allergy information in the electronic medical record. Home Medications Medication Instructions Recorded Ibuprofen [Motrin Ib] 400 mg PO BID 11/15/17 Tamoxifen Citrate [Nolvadex] 20 mg PO DAILY 90 Days #90 tab 11/15/17 Review of Systems: A 12-point review of systems was completed and was negative except for what is noted in the HPI/Interval History and by the nurse. Height/Weight/BMI: Height: 5 ft 8 in Weight: 108.912 kg BMI: 36.4 Vital Signs Height 5 ft 8 in Weight: 108.912 kg Weight in Pounds 240.1 lbs BMI 36.4 Pulse Ox 99 Physical Exam: ECO KARNOFSKY SCORE: 100% CONSTITUTIONAL: Well-developed, well-nourished, and in no apparent distress. NECK: Supple,with no thyromegaly, and non-tender. Trachea midline. No cervical or supraclavicular adenopathy noted. CARDIAC: Regular rate and rhythm. Normal S1, S2. No murmurs, rubs, or gallops. PULMONARY/CHEST: Lungs are clear to auscultation and percussion bilaterally. No wheezes, rhonchi, or crackles noted. No increased work of breathing. BREAST: Bilateral breasts are examined in the supine and seated position. The left breast still remains a little bit swollen with evidence of some dimpling medially, the erythema involving the skin has greatly improved and there is no evidence of desquamation. There is still soreness palpated deep to the laterally located lumpectomy incision as well as soreness with palpation to the tissue lateral to the breast and extending into the axilla out to the mid axillary line. No masses are appreciated in either breast. Left arm range of motion is normal but there is some pulling with extreme abduction overhead and some tightness of the pectoralis muscle, no edema. Imaging: As per HPI No new imaging to review. Laboratory Data: No new labs to review. 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 She received adjuvant radiation therapy consisting of 4256 cGy in 16 fractions to the left breast followed by a boost consisting of 1000 cGy given in 4 fractions to the lumpectomy bed (10/13/17 11/10/17). Plan: Patient returns for a one-month follow-up following completion of adjuvant radiation therapy. She continues to take Herceptin and will complete one year of therapy in April 2018. Clinically there is no evidence of disease recurrence on exam. She does have persistent mild breast swelling and some mild erythema of the breast but overall this has improved over the last month. The breast pain has also greatly improved but she continues to have persistent pain extending out into the axilla and underlying the lumpectomy incision. She was evaluated by Dr. Robertson today and she reports that he is going to require imaging to assess for seroma or abscess as well as myositis around to the left axilla and will likely have to get a mammogram and ultrasound prior to having approval for an MRI. Mammogram and ultrasound will be performed tomorrow. 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 She has already used anti-inflammatory medications which have helped with the breast pain but not with the axillary discomfort. Other options to reduce the inflammation could be to consider prednisone taper for a few weeks, Trental and Vitamin E, and if these more conservative measures do not work then consider hyperbaric oxygen. I will plan to discuss my thoughts with Dr. Robertson and also review the imaging studies prior to developing a treatment plan. I recommend clinical breast exam every 3- 4 months during the first year and she will return in 3 months for a follow-up visit. I also recommended pursuing a healthy well-balanced plant based diet as well as persistent cardiovascular exercise program to maintain healthy weight and maximally reduce risk of disease recurrence. She is in the process of establishing with a new vest baster to complete screening. She was instructed to call with any further questions or concerns in the interim. Devon Xiong DO, MS Ink Maker, Department of Radiation Oncology [facility] 12/10/17 1123 <Electronically signed by Devon Xiong DO> Date Devon Xiong DO CC: Signed PLASTIC SURGERY Observed: 12/04/2017 Status: F Source: [place] VISIT REPORT 10:25 AM [facility] REPOSITORY [facility] [address] [address] OFFICE VISIT Date of Service: 10/27/17 MR#: [id number] Acct: [id number] Name: GAIL LACEY Rep #: [id number] : 1985 Provider: Jose Robertson MD Age/Sex: 32/F Location: [facility] [place] Status: Signed Intake Vital Signs10/27/17 Height 5 ft 8 in 10/27/17 Weight: 237 lb Intake Visit Reasons: postop surgery 08/05/17 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 Required: No Accompanied by: Friend Is patient in pain?: Yes (LEFT BREAST PAIN SHARP AND WORSE WHEN TOUCHED) Pain scale (1-10): 4 Allergies hydromorphone [From Dilaudid] Allergy (Severe, Verified 11/15/17 08:58) Laryngospasms morphine Allergy (Severe, Verified 11/15/17 08:58) chest tightening TAPE Adverse Reaction (Mild, Uncoded 11/03/17 13:55) Other Medications Ibuprofen [Motrin Ib] 400 mg PO BID 11/15/17 [History Confirmed 11/15/17] Tamoxifen Citrate [Nolvadex] 20 mg PO DAILY 90 Days #90 tab 11/15/17 [Rx] diazepam 5 mg tablet See Label Instructions PO .4x/day prn #30 tab 12/04/17 [Rx Confirmed 12/04/17] oxycodone-acetaminophen 5 mg-325 mg tablet See Label Instructions PO .4x/day prn #30 tab 12/04/17 [Rx Confirmed 12/04/17] Is last menstrual period known: Yes Post menopausal: No Patient : No PFSH Medical History Anxiety (Acute) Asthma (Acute) BLADDER/URINARY TRACT INFECTION (Acute) Breast cancer (Acute) Carpal tunnel syndrome (Acute) Depression (Acute) Headache (Acute) Hives (Acute) Immunodeficiency (Acute) NEUROPATHY AFTER ARM SURGERY (Acute) NON HEALING POST- LUMPECTOMY SEROMA ULCER LEFT BREAST (Acute) Neutropenia (Acute) Pneumonia (Acute) Polycystic ovary (Acute) Psychiatric disorder (Acute) Sleep apnea (Acute) Thyroid disease (Acute) Vitamin D deficiency (Acute) med port placement (Acute) Surgical History HOSPITAL FEBRILE NEUTROPENIA DISCHARGED 07/14/2017 (Acute) History of lumpectomy (Acute) History of partial mastectomy of left breast (Acute 03/2017) PORT PLACEMENT (Acute 04/2017) Plantar wart (Acute 2007) SURGICAL PREPARATION LEFT LATERAL BREAST (Acute) [place] teeth extracted (Acute) Family History Mother Psychiatric disorder Thyroid disorder Father Hyperlipidemia Hypertension Father Heart disease Aunt Seizures Grandmother Cancer Colon cancer Grandfather Diabetes Heart disease Social History Smoking Status: Former smoker alcohol intake: never what type of physical activity do you participate in: none seatbelt use: always do you feel safe at home: Yes additional social history: SUN EXPOSURE: RARELY HPI postop surgery 08/05/17: Details: Postop visit from her recent surgery on 08/05/17 where she underwent surgical preparation left lateral breast with incision and drainage and excision nonhealing post-lumpectomy seroma ulcer with 9 cm complex secondary wound closure. Comes in today with complaints of left breast pain. She states she has started Radiation Therapy. Chronic pain in the left breast is not uncommon with radiation. After radiation is done, she wound benefit from HBO treatments especially if she is still symptomatic. HBO helps with soft tissue radionecrosis. Incision is dry and intact with some dimpling laterally. There is breast asymmetry between the right breast and the left breast. She states she may be interested in a right breast reduction in the future after the radiation is done. Pathology showed dense fibroconnective tissue with reactive changes, clinically seroma, and no malignancy found. Operative culture was negative. She states she had a recent Bone Scan which showed arthritis. She is done with the IV chemotherapy. She is going to receive Herceptin for 11 more treatments. Renewed her Percocet for pain, one tab (30 tabs). Renewed her Valium for spasm (30 tabs). For her pain in the left breast, will order an MRI. Followup one month. 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 Pneumonia STEVE Chronic back pain Nonhealing post-lumpectomy seroma ulcer left lateral breast Chemotherapy induced neutropenia PAST SURGICAL HISTORY: [place] teeth 2003 all 4 Planter Wart 2008 Partial Mastectomy 04/06/17 - getting chemotherapy and will follow with radiation therapy Port Placement 05/03 Hospital-Febrile Neutropenia discharged 07/14/17 Occasional psychiatric hospitalized [id number] surgical preparation left lateral breast with incision and drainage and excision nonhealing post-lumpectomy seroma ulcer with 9 cm complex secondary wound closure - 08/05/17 FAMILY HISTORY: Mother (biol.) - Has Family History of Depression Mother (biol.) - Has Family History of Thyroid Disorder Mother (biol.) - Has Family History of Psychiatric Care Father (biol.) - Has Family History of Hypertension Father (biol.) - Has Family History of High Cholesterol Aunt - Has Family History of Seizures PGM - Has Family History of Other Cancer PGF - Has Family History of Diabetes PGF - Has Family History of Heart Disease PGM - Has Family History of Colon Cancer SOCIAL HISTORY: Drug Use - no Patient is a former smoker. Patient does not drink alcohol. Assessment AND Plan Problems 1. Personal history of malignant neoplasm of breast Z85.3 2. Pain of left breast N64.4 3. Disproportion of reconstructed breast N65.1 4. Deformity of reconstructed breast N65.0 5. Other specified complications of surgical and medical care, not elsewhere classified, subsequent encounter T88.8XXD Orders Orders: Medications New: Coding Level of Care Code Global Post Op Diagnoses Personal history of malignant neoplasm of breast Z85.3 Pain of left breast N64.4 Disproportion of reconstructed breast N65.1 Deformity of reconstructed breast N65.0 Other specified complications of surgical and medical care, not elsewhere classified, subsequent encounter T88.8XXD 12/04/17 1025 <Electronically signed by Jose Robertson MD> Date Jose Robertson MD Cosigner Signature: Date (if applicable) CC: THYROID STIM HORMONE Collected: 11/15/2017 Status: F Source: [place] (TSH) 8:48 AM [facility] REPOSITORY TYPE CODE TESTS RESULT OUT OF RANGE REFERENCE UNITS LAB L501.9520 0.358-3.74 uIU/mL High TSH 6.91 Performed By: #### L501.9520 #### [facility] [address] [place], [address] CBC W/DIFF, AUTOMATED Collected: 11/15/2017 Status: F Source: [place] 8:28 AM [facility] REPOSITORY Order Comment: Reason for Laboratory Test PRE-CHEMO TYPE CODE TESTS RESULT OUT OF RANGE REFERENCE UNITS LAB L100.1000 4.4-11.0 K/mm3 Low WBC 3.2 LAB L100.1200 4.2-5.4 M/mm3 Low RBC 3.52 LAB L100.1300 12.0-15.0 g/dl Low HGB 10.6 LAB L100.1400 37-47 % Low HCT 31.4 LAB L100.1500 81-99 fL Normal MCV 89.2 LAB L100.1600 27.0-32.0 pg Normal MCH 30.1 LAB L100.1700 32-36 g/gl Normal MCHC 33.8 LAB L100.1810 11.6-14.6 % Normal RDW CV 13.6 LAB L100.1820 35.1-43.9 fl High RDW SD 44.4 LAB L100.1900 150-450 K/mm3 Low PLT 97 LAB L100.2000 6.2-12.0 fl Normal MPV 7.8 LAB L100.2100 47-70 % Normal NEUT% 63.8 LAB L100.2200 19-41 % Normal LY% 24.9 LAB L100.2300 0-10 % Normal MONO% 8.8 LAB L100.2400 0-5 % Normal EO% 2.2 LAB L100.2500 0-1 % Normal BASO% 0.3 LAB L100.2550 0.0-0.9 % Normal IM GRAN % 0.000 Result Comment: IG% - Immature Granulocytes (promyelocytes, myelocytes and metamyelocytes) > 1% indicates that a LEFT SHIFT is Present. LAB L100.2620 2.0-7.7 X10 3/uL Normal Absolute Neut 2.0 LAB L100.2720 0.83-4.51 X10 3/ul Low Absolute Lymph 0.79 Performed By: #### L100.0100 #### [facility] [address] [place], [address] END OF TREATMENT Observed: 11/12/2017 Status: F Source: [place] SUMMARY 1:12 PM [facility] REPOSITORY [facility] Medical Records Department [address] [facility] [place] [address] End of Treatment Summary 11/12/17 1251 MR#: [id number] Acct: [id number] Name: GAIL LACEY Rep #: [id number] : 1985 32 From: Devon Xiong DO PCP: Kaden Robles MD Status: REG RCR Y Location: [facility] End of Treatment Summary: Diagnosis: Gail Lacey is a 32 year-old pre-menopausal female diagnosed with 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 Oncologic History: 03/01/2017: Patient completed bilateral diagnostic mammography due to left nipple discharge. There is a focal area of architectural distortion seen in the deep lateral portion of the left breast, BI-RADS Category 0. 03/01/2017: Left breast ultrasound was completed and showed evidence of a 9 x 7 x 12 mm ill-defined hypoechoic density at the 4 o'clock position of the left breast at 6 cm from the nipple which corresponds to the mammographic abnormality, biopsy is recommended BI-RADS Category 4. 03/16/2017: Patient underwent biopsy of the left lower outer quadrant (4 o'clock) breast mass and pathology demonstrated poorly differentiated infiltrating ductal carcinoma (ER 0%, KS 5%, Her2 3+ on IHC). 04/06/2017: Patient underwent lumpectomy of the left breast and sentinel lymph node biopsy. Pathology demonstrated evidence of a 1.2 x 0.9 x 0.9 cm grade 3 infiltrating ductal carcinoma with associated high-grade ductal carcinoma in situ, margins are negative for both invasive and DCIS with closest margin for invasive carcinoma being 0.7 cm and closest margin for DCIS being 0.32 cm, angiolymphatic invasion was not seen a single sentinel lymph node was identified and did not have evidence of metastatic disease. pathologic stage IA (pT1c pN0 (sn) M0). 05/18/2017: Patient was started with systemic adjuvant therapy under the care of Dr. Ferreira in [facility], she received TCH 07/02/2017: She received the third cycle of TCH and required support with Leukine daily injections. 07/10/2017 2 07/13/2017: Patient was admitted for neutropenic fever and found to have a seroma in the left breast. She was evaluated by plastic surgery who felt that there was no need for any intervention and so she was treated with antibiotics. 07/11/2017: Breast ultrasound was performed focused on the 4 o'clock position left breast which demonstrated a septated fluid collection of 2.8 x 2.9 x 1.8 cm there is also noted to be a 1.5 cm left axillary lymph node. 07/13/2017: Bilateral breast MRI was performed due to slight drainage from surgical site. There is a postsurgical seroma identified in the left breast measuring 7 x 2.3 x 1.4 cm, otherwise there are no abnormal masses or lesions found in either breast and there is no evidence for enlarged or abnormal lymph nodes or any abnormality in the visualized chest or liver. 07/29/2017: Patient underwent whole body bone scan which showed normal concentration of radiopharmaceutical throughout the axial and appendicular skeletal system without either a focal decrease or increase in uptake. 08/05/2017: Due to persistent enlarging seroma the patient underwent incision and drainage and excision of the nonhealing postlumpectomy seroma. Pathology demonstrated skin with underlying dense fibroconnective tissue with reactive changes breast tissue is not identified in the sections examined. 09/13/2017: Patient received the sixth cycle of the planned 6 total cycles. 09/18/17: Presented to the ED with intermittent rectal bleeding. She was stable and referred for repeat outpatient labs and possibly an outpatient colonoscopy which was not done given the recent chemotherapy exposure. The patient completed a course of external beam radiotherapy in our department. This treatment was delivered for curative intent. Treatment was given according to the following parameters: GAIL LACEY received 4256 cGy of mixed 6, 10, and 15 MV photons in 16 fractions to the left breast with a 3D conformal technique consisting of MONEGASQUE, LPO, and MONTERO carmen with field and field to improve dose homogeneity. A sequential boost consisting of 1000 cGy of mixed 10 and 15 MV photon in 4 fractions was delivered to the lumpectomy bed with a 3D conformal technique consisting of MONEGASQUE and LPO carmen. This brought the total dose delivered to 5256 cGy in 20 fractions. Patient was treated in the prone position to limit dose to the heart and lungs. The patient did receive receive concurrent Herceptin. Date of First Treatment: 10/13/2017 Date of Last Treatment: 11/10/2017 Total Elapsed Days (including weekend and holidays): 27 Missed Treatments: None Response and Tolerance: The patient tolerated this course of radiotherapy well overall. The following radiation related toxicities developed during the course of radiation therapy: * Grade 2 skin toxicity which was treated with Aquaphor, she also developed inframammary fold yeast infection treated with [id number] antifungal cream * Grade 1 fatigue which was relieved by rest * Grade 2 breast pain with swelling and heaviness which was treated with [id number] anti-inflammatory medications Exam at the end of radiation therapy showed evidence for left breast erythema over most of the breast and into the left axilla, small fungal infection of the inframammary fold, no bruising but breast pain noted in the left portion of the breast extending into the axilla. There was no evidence for any gross disease. Disposition: The patient tolerated the planned course of radiation therapy well without unexpected toxicity in an appropriate time course. I will have Mrs. Lacey follow- up in about 4 weeks for a routine visit to assess resolution of radiation toxicity. The patient will maintain scheduled follow-up visits with the other providers and continue to receive Herceptin every [address] Edouard. If we can provide any further information on this patient's course of care, please do not hesitate to ask. We would like to thank you very much for allowing us to participate in the care of this patient. Sincerely, Devon Xiong DO, MS Ink Maker, Department of Radiation Oncology [facility] 11/12/17 1312 <Electronically signed by Devon Xiong DO> Date Devon Xiong DO CC: Kaden Robles MD; Jose Robertson MD; Owen Edouard MD; Devon Xiong DO Signed ONCOLOGY PROGRESS Observed: 11/11/2017 Status: F Source: [place] NOTE 1:07 PM [facility] REPOSITORY [facility] Medical Records Department [address] [place] [address] Oncology Progress Note 11/11/17 1300 MR#: [id number] Acct: [id number] Name: GAIL LACEY Rep #: [id number] : 1985 32 From: Devon Xiong DO PCP: Kaden Robles MD Status: REG RCR Y Location: [facility] Date of Service: 11/11/17 Diagnosis: Gail Lacey is a 32 year-old pre-menopausal female diagnosed with 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 Plan was made to complete adjuvant radiation therapy to the left breast consisting of 4256 cGy in 16 fractions followed by a boost to the lumpectomy cavity consisting of 1000 cGy in 4 fractions. She has been treated in the prone position to minimize cardiac and lung radiation. Treatment Data: Treatment Site: Left Breast Current total dose/Total dose planned: 4256 cGy / 4256 cGy, 1000 cGy / 1000 cGy Fraction number: , Chemotherapy: None concurrent, q3 week Herceptin ongoing Subjective: Patient reports doing okay at this time. She notes that her left breast is continuing to have pain located in the outer portion of the left breast near the lumpectomy incision and also in the superior portion of the breast. The pain has intensified over the last week. The pain in the superior part of the breast is generally an achy fairly constant pain and the pain near the incision is more of a sharp intermittent pain. She has not been wearing any bras but instead has just been wearing a loose T-shirt. She has used some Percocet given to her by her plastic surgeon which has helped some with the pain and she uses this prior to sleeping. She has not yet tried ibuprofen. She is having difficulty sleeping especially in the left side due to breast heaviness and pain. She reports more skin erythema and some peeling with small amount of bleeding in the inferior mammary fold area. She is using Aquaphor in this area which has been helping. She reports having very mild fatigue. She denies having any skin rash or itchiness. She denies swelling/lymphedema, cough, shortness of breath, or other complaints at this time. She saw her family physician for evaluation of hypertension noted in past weeks and no medication has been started. Height/Weight/BMI: Height: 5 ft 8 in Weight: 107.32 kg BMI: 36.4 Vital Signs Height 5 ft 8 in Weight: 108.998 kg Weight in Pounds 240.3 lbs BMI 36.4 Pulse Ox 99 Objective: Gen: NAD Breast: Left breast with mild erythema. Very small amount of desquamation noted in the inferior mammary fold, possible inframammary fold fungal infection, no discharge. No evidence of seroma but breast feels swollen. There is breast pain noted involving the left side of the breast extending several centimeters superior and inferior to the lateral lumpectomy incision. There is firm scar tissue noted deep to the lumpectomy incision which is also tender to palpation. No skin bruising or erythema noted. Normal arm range of motion noted. No drainage or discharge noted from the lumpectomy incision. Assessment: All treatment images have been reviewed and approved. Grade 2 skin irritation Grade 1 fatigue Grade 2 breast pain moderate Breast edema inframammary fold fungal infection Plan: Continue skin care including lotion twice daily and hydrocortisone for rash if needed. Attempt ibuprofen 3 times daily for 3 days to improve breast pain. Percocet at bedtime Attempt ice pack for breast inflammation Antifungal cream for inframammary fold Follow-up in one month or sooner if needed. Thank you for allowing me to participate in the management and care of your patient. If I may answer any questions in the interim, please do not hesitate to contact me at any time. Devon Xiong DO, MS Ink Maker, Department of Radiation Oncology [facility] 11/11/17 1300 <Electronically signed by Devon Xiong DO> Date Devon Xiong DO CC: Signed ONCOLOGY PROGRESS Observed: 11/03/2017 Status: F Source: [place] NOTE 2:44 PM [facility] REPOSITORY [facility] Medical Records Department [address] [place] [address] Oncology Progress Note 11/03/17 1435 MR#: [id number] Acct: [id number] Name: GAIL LACEY Rep #: [id number] : 1985 32 From: Devon Xiong DO PCP: Kaden Robles MD Status: REG RCR Y Location: [facility] Date of Service: 11/03/17 Diagnosis: Gail Lacey is a 32 year-old pre-menopausal female diagnosed with 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 Plan was made to complete adjuvant radiation therapy to the left breast consisting of 4256 cGy in 16 fractions followed by a boost to the lumpectomy cavity consisting of 1000 cGy in 4 fractions. She has been treated in the prone position to minimize cardiac and lung radiation. Treatment Data: Treatment Site: Left Breast Current total dose/Total dose planned: 3990 cGy / 4256 cGy, 0 cGy / 1000 cGy Fraction number: , 0 Chemotherapy: None concurrent, q3 week Herceptin ongoing Subjective: Patient reports doing okay at this time. She notes that her left breast is continuing to have pain located in the outer portion of the left breast near the lumpectomy incision and also in the superior portion of the breast. The pain in the superior part of the breast is generally an achy fairly constant pain and the pain near the incision is more of a sharp intermittent pain. She has not been wearing any bras but instead has just been wearing a loose T-shirt. She has used some Percocet given to her by her plastic surgeon which has helped some with the pain and she uses this prior to sleeping. She has not yet tried ibuprofen. She is having difficulty sleeping especially in the left side due to breast heaviness and pain. She reports more skin erythema and some peeling with small amount of bleeding in the inferior mammary fold area. She is using Aquaphor in this area which has been helping. She reports having very mild fatigue. She denies having any skin rash or itchiness. She denies swelling/lymphedema, cough, shortness of breath, breast or chest wall pain, or other complaints at this time. She saw her family physician for evaluation of hypertension noted in past weeks and no medication has been started, blood pressure is somewhat improved today. Height/Weight/BMI: Height: 5 ft 8 in Weight: 107.32 kg BMI: 36.4 Vital Signs Height 5 ft 8 in Weight: 109.316 kg Weight in Pounds 241.0 lbs BMI 36.4 Pulse Ox 97 Objective: Gen: NAD Breast: Left breast with minimal erythema. Very small amount of desquamation noted in the inferior mammary fold, no discharge. No evidence of seroma. There is breast pain noted involving the left side of the breast extending several centimeters superior and inferior to the lateral lumpectomy incision. There is firm scar tissue noted deep to the lumpectomy incision which is also tender to palpation. No skin bruising or erythema noted. Normal arm range of motion noted. No drainage or discharge noted from the lumpectomy incision. Assessment: All treatment images have been reviewed and approved. Grade 2 skin irritation Grade 1 fatigue Grade 1-2 breast pain moderate Breast edema Plan: Continue skin care including lotion twice daily and hydrocortisone for rash if needed. Attempt ibuprofen 3 times daily for 3 days to improve breast pain. Follow-up next week or sooner if needed. Thank you for allowing me to participate in the management and care of your patient. If I may answer any questions in the interim, please do not hesitate to contact me at any time. Devon Xiong DO, MS Ink Maker, Department of Radiation Oncology [facility] 11/03/17 1382 <Electronically signed by Devon Xiong DO> Date Devon Xiong DO CC: Signed ONCOLOGY PROGRESS Observed: 11/01/2017 Status: F Source: [place] NOTE 3:14 PM [facility] REPOSITORY [facility] Medical Records Department [address] [place] [address] Oncology Progress Note 11/01/17 1458 MR#: [id number] Acct: [id number] Name: GAIL LACEY Rep #: [id number] : 1985 32 From: Devon Xiong DO PCP: Kaden Robles MD Status: REG RCR Y Location: [facility] ADDENDUM by Devon Xiong DO on 11/01/17 at 1514 Blood pressure today was very high at about 170/110. The patient claims to have no history of hypertension is never taken medications. She does have a PCP in the area but has not seen him recently. She reports no chest pain, headaches, or changes in kidney function. After taking time to relax her blood pressure did come down but did not go into the normal range. Likely this hypertension is related to breast pain and general anxiety related to cancer diagnosis. We discussed with her PCP who will contact her and evaluate her for the need of hypertensive medication. 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 Plan was made to complete adjuvant radiation therapy to the left breast consisting of 4256 cGy in 16 fractions followed by a boost to the lumpectomy cavity consisting of 1000 cGy in 4 fractions. She has been treated in the prone position to minimize cardiac and lung radiation. Treatment Data: Treatment Site: Left Breast Current total dose/Total dose planned: 3458 cGy / 4256 cGy, 0 cGy / 1000 cGy Fraction number: , 0 / 4 Chemotherapy: None concurrent, q3 week Herceptin ongoing Subjective: Patient reports doing okay at this time. She notes that her left breast is having a lot more pain over the last 3-4 days and this is located in the outer portion of the left breast. She has not been wearing any bras but instead has just been wearing a loose T-shirt. She has used some Percocet given to her by her plastic surgeon which has helped some with the pain. She is having difficulty sleeping especially in the left side due to breast heaviness and pain. She reports more skin erythema and some peeling with small amount of bleeding in the inferior mammary fold area. She reports having very mild fatigue. She denies having any skin rash or itchiness. She denies swelling/lymphedema, cough, shortness of breath, breast or chest wall pain, or other complaints at this time. Height/Weight/BMI: Height: 5 ft 8 in Weight: 107.32 kg BMI: 36.4 Vital Signs Height 5 ft 8 in Weight: 107.592 kg Weight in Pounds 237.2 lbs BMI 36.4 Pulse Ox 97 Objective: Gen: NAD Breast: Left breast with minimal erythema. Very small amount of desquamation noted in the inferior mammary fold, no discharge. No evidence of seroma. There is breast pain noted involving the left side of the breast extending several centimeters superior and inferior to the lateral lumpectomy incision. There is firm scar tissue noted deep to the lumpectomy incision which is also tender to palpation. No skin bruising or erythema noted. Normal arm range of motion noted. No drainage or discharge noted from the lumpectomy incision. Assessment: All treatment images have been reviewed and approved. Grade 2 skin irritation Grade 1 fatigue Plan: Continue skin care including lotion twice daily and hydrocortisone for rash if needed. We will use ibuprofen 3 times daily to improve breast pain. Follow-up in 2 days or sooner if needed. Thank you for allowing me to participate in the management and care of your patient. If I may answer any questions in the interim, please do not hesitate to contact me at any time. Devon Xiong DO, Ink Maker, Department of Radiation Oncology [facility] 11/01/17 2627 <Electronically signed by Devon Xiong DO> Date Devon Xiong DO CC: Signed ONCOLOGY PROGRESS Observed: 10/27/2017 Status: F Source: [place] NOTE 3:21 PM [facility] REPOSITORY [facility] Medical Records Department [address] [place] [address] Oncology Progress Note 10/27/17 1514 MR#: [id number] Acct: [id number] Name: GAIL LACEY Rep #: [id number] : 1985 32 From: Devon Xiong DO PCP: Kaden Robles MD Status: REG RCR Y Location: [facility] Date of Service: 10/27/17 Diagnosis: Gail Lacey is a 32 year-old pre-menopausal female diagnosed with 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 Plan was made to complete adjuvant radiation therapy to the left breast consisting of 4256 cGy in 16 fractions followed by a boost to the lumpectomy cavity consisting of 1000 cGy in 4 fractions. She has been treated in the prone position to minimize cardiac and lung radiation. Treatment Data: Treatment Site: Left Breast Current total dose/Total dose planned: 2660 cGy / 4256 cGy, 0 cGy / 1000 cGy Fraction number: , 0 / 4 Chemotherapy: None concurrent, q3 week Herceptin ongoing Subjective: Patient reports doing very well at this time. She reports mild skin redness and denies desquamation. She had an episode of deep breast/CW pain last night described as twinges of pain on and off for about 30-45 minutes but denies any recurrence since. She reports having very mild fatigue. She denies having any skin rash or itchiness. She has some increased tenderness in the outer breast and into the axilla. She denies swelling/lymphedema, cough, shortness of breath, breast or chest wall pain, or other complaints at this time. Height/Weight/BMI: Height: 5 ft 8 in Weight: 107.32 kg BMI: 36.4 Vital Signs Height 5 ft 8 in Weight: 107.592 kg Weight in Pounds 237.2 lbs BMI 36.4 Pulse Ox 97 Objective: Gen: NAD Breast: Left breast with minimal erythema and no desquamation. small amount of swelling noted in the extreme lateral breast near the incision, no redness or pain. well healed lateral left breast lumpectomy incision without erythema or drainage. Assessment: All treatment images have been reviewed and approved. Grade 1 skin irritation Grade 1 fatigue Plan: Continue skin care including lotion twice daily and hydrocortisone for rash if needed. Follow-up next week or sooner if needed. Thank you for allowing me to participate in the management and care of your patient. If I may answer any questions in the interim, please do not hesitate to contact me at any time. Devon Xiong DO, MS Ink Maker, Department of Radiation Oncology [facility] 10/27/17 1521 <Electronically signed by Devon Xiong DO> Date Devon Xiong DO CC: Signed ONCOLOGY PROGRESS Observed: 10/21/2017 Status: F Source: [place] NOTE 2:57 PM [facility] REPOSITORY [facility] Medical Records Department [address] [place] [address] Oncology Progress Note 10/21/17 1449 MR#: [id number] Acct: [id number] Name: GAIL LACEY Rep #: [id number] : 1985 32 From: Devon Xiong DO PCP: Kaden Robles MD Status: REG RCR Y Location: [facility] Date of Service: 10/21/17 Diagnosis: Gail Lacey is a 32 year-old pre-menopausal female diagnosed with 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 Plan was made to complete adjuvant radiation therapy to the left breast consisting of 4256 cGy in 16 fractions followed by a boost to the lumpectomy cavity consisting of 1000 cGy in 4 fractions. She has been treated in the prone position to minimize cardiac and lung radiation. Treatment Data: Treatment Site: Left Breast Current total dose/Total dose planned: 1596 cGy / 4256 cGy, 0 cGy / 1000 cGy Fraction number: , 0 / 4 Chemotherapy: None concurrent, q3 week Herceptin ongoing Subjective: Patient reports doing very well at this time. She denies having any skin irritation or desquamation. She reports having very mild fatigue. She denies having any skin rash or itchiness. She denies swelling/lymphedema, cough, shortness of breath, breast or chest wall pain, or other complaints at this time. Height/Weight/BMI: Height: 5 ft 8 in Weight: 107.32 kg BMI: 36.4 Vital Signs Height 5 ft 8 in Weight: 107.32 kg Weight in Pounds 236.6 lbs BMI 36.4 Pulse Ox 100 Objective: Gen: NAD Breast: Left breast with minimal erythema and no desquamation. well healed lateral left breast lumpectomy incision without erythema or drainage. Assessment: All treatment images have been reviewed and approved. No apparent radiation toxicity at this time other than mild fatigue. Plan: Provided instructions regarding skin care including lotion twice daily and hydrocortisone for rash. Follow-up next week or sooner if needed. Thank you for allowing me to participate in the management and care of your patient. If I may answer any questions in the interim, please do not hesitate to contact me at any time. Devon Xiong DO, MS Ink Maker, Department of Radiation Oncology [facility] 10/21/17 6586 <Electronically signed by Devon Xiong DO> Date Devon Xiong DO CC: Signed BRAIN W/WO CONTRAST Observed: 10/06/2017 Status: F Source: [place] 5:51 PM [facility] Imaging Services [address] [place] [address] Brain W/WO Contrast MR#: [id number] Acct: [id number] Name: GAIL LACEY Rep #: [id number] : 1985 F 32 From: Nas Osuna DO PCP: Kaden Robles MD Status: REG CLI Study: Brain W/WO Contrast Date of Exam: 10/06/17 Exam# [id number] Ordering Dr: Owen Edouard MD STUDY: MRI BRAIN WITH AND WITHOUT CONTRAST REASON FOR EXAM: Female, 32 years old. Altered mental status. TECHNIQUE: Standardized multiplanar fat and water weighted pulse sequences were obtained. 11 ml of Gadavist contrast material was administered intravenously for the contrast portion of the examination. COMPARISON: None. FINDINGS: Normal size of the ventricles and extra-axial spaces for the patient's age. Normal white matter tracts of the supratentorial brain. There is no evidence for recent intracranial ischemia or other cause of cytotoxic edema on diffusion weighted imaging (DWI). Normal T2* images of the brain without demonstrated susceptibility artifact. There is no demonstrated hemosiderin stain. Normal bilateral basal ganglia. Normal thalami. There is no extra-axial fluid accumulation. Normal flow voids within the major intracranial circulation suggesting patency by spin echo criteria. Normal venous enhancement. There is no enhancing intra-axial or extra-axial abnormality. Normal sella turcica, pituitary gland, infundibular stalk, optic chiasm and hypothalamus. Normal tectal plate and pineal gland. Normal midbrain, rosalio and medulla. Normal cerebellum. Normal basal cisterns. Normal bilateral temporal bones. Normal bilateral internal auditory canals. No demonstrated orbital abnormality, within the constraints of a routine brain study. Normal visualized paranasal sinuses. Normal calvarium and skull base. Normal visualized soft tissue structures. Normal visualized upper cervical spine. MRI/Brain W/WO Contrast IMPRESSION: No evidence of acute intracranial bleed, mass or ischemia. 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: Signed ALLERGIES ALLERGIES DATE TYPE / CODE NAME / CODE REACTION SEVERITY SOURCE Drug morphine/F006 chest tightening [place] 8 Allergy/247010821( 192662(RXNORM Community SNOMED CT) ) Hospital Repository Drug hydromorphone Laryngospasms [place] Allergy/017949030( /Z787137187(R [facility] SNOMED CT) XNORM) Hospital Repository Miscellaneous TAPE Other [place] 8 Allergy/378147709( Community SNOMED CT) Hospital Repository DRUG MORPHINE OTHER: SEE C [place] 2 INGREDI/036884795( Clinic Other SNOMED CT) [place] Repository Animal/003920639(S CATS [place] [address]) Clinic Other [place] Repository NG/108624361(SNOME CATS [facility] D [facility]) [facility] Repository NG/663594457(SNOME MORPHINE [facility] D CT) [facility] System Repository ENCOUNTERS ENCOUNTERS ADMIT/DISCHARGE ACCOUNT NUMBER ADMITTING ENCOUNTER LOCATION SOURCE CLASS 10/04/2018 [id number] Ambulatory [facility] MEDICAL Repository CENTERBuildi ng:AGPSYACC 09/28/2018 [id number] Ambulatory BMSBuilding: [place] BMS.CF.[facility] Repository 09/27/2018/09/27/20 [id number] Ambulatory [address] ding:SDCRoom Repository : AC03 09/26/2018 [id number] Ambulatory BMSBuilding: [place] BMS.CF.[facility] Repository 09/26/2018 [id number] Ambulatory [facility] ding:CVS Repository 09/21/2018 [id number] Ambulatory [facility] ding:OT Repository 09/14/2018/09/14/20 [id number] Emergency [address] ding:ED Repository 09/12/2018 [id number] Ambulatory BMSBuilding: [place] BMS.CF.[facility] Hospital Repository 09/12/2018 [id number] Ambulatory [facility] ding:OMD Repository 09/12/2018 [id number] Ambulatory [facility] ding:LAB Repository 09/12/2018/09/12/20 [id number] Ambulatory BMSBuilding: [place] [address].[facility] Repository 08/28/2018 [id number] Ambulatory [facility] ding:WC Repository 08/26/2018/08/26/20 [id number] Ambulatory BMSBuilding: [place] 18 BMS.[facility] Repository 08/17/2018/08/17/20 [id number] Ambulatory BMSBuilding: [place] 18 BMS.[facility] Repository 08/16/2018 [id number] Ambulatory [facility] ding:US Repository 08/16/2018/08/16/20 [id number] Ambulatory BMSBuilding: [place] [address] Repository 08/11/2018/08/17/20 [id number] Ambulatory [address] ding:WC Repository 08/04/2018 [id number] Ambulatory BMSBuilding: [facility] Repository 08/04/2018 [id number] Ambulatory BMSBuilding: [facility] Repository 08/03/2018/08/03/20 [id number] Ambulatory BMSBuilding: [place] 18 BMS.[facility] Repository 08/02/2018 [id number] Ambulatory BMSBuilding: [place] BMS.CF.[facility] Repository 07/28/2018 [id number] Ambulatory BMSBuilding: [facility] Repository 07/27/2018 [id number] Ambulatory BMSBuilding: [facility] Repository 07/26/2018/07/26/20 [id number] Ambulatory [address] Repository 07/26/2018/07/26/20 [id number] Ambulatory [address] MEDICAL Repository CENTERBuildi ng:AGPSYACC 07/21/2018 [id number] Ambulatory BMSBuilding: [place] [facility] Hospital Repository 07/20/2018/07/20/20 [id number] Ambulatory BMSBuilding: [place] 18 BMS.[facility] Repository 07/20/2018 [id number] Ambulatory BMSBuilding: [place] [facility] Hospital Repository 07/19/2018 [id number] Ambulatory BMSBuilding: [place] [facility] Hospital Repository 07/15/2018/07/17/20 [id number] Ambulatory [place] ding:WC Repository 07/14/2018 [id number] Ambulatory BMSBuilding: [place] BMS.CF.[facility] Repository 07/13/2018/07/13/20 [id number] Ambulatory BMSBuilding: [place] 18 BMS.[facility] Repository 07/12/2018/07/12/20 [id number] Ambulatory [address] ding:SDCRoom Repository : AC18 07/11/2018/07/11/20 [id number] Ambulatory BMSBuilding: [place] [address].[facility] Repository 07/11/2018 [id number] Ambulatory [facility] ding:OPUS Repository 07/07/2018 [id number] Ambulatory BMSBuilding: [place] BMS.CF.[facility] Repository 07/04/2018 [id number] Ambulatory BMSBuilding: [place] BMS.CF.[facility] Repository 07/04/2018 [id number] Ambulatory [facility] ding:OPBI Repository 06/30/2018 [id number] Ambulatory BMSBuilding: [place] BMS.CF.[facility] Repository 06/29/2018 [id number] Ambulatory BMSBuilding: [place] BMS.CF.[facility] Repository 06/28/2018 [id number] Ambulatory [facility] ding:NS Repository 06/25/2018/06/26/20 [id number] Jason, Ambulatory [place] [address] [place] [address] ding:XJ5Ltek Repository : TF658Kgb: 1 06/25/2018 [id number] Jason, Ambulatory BMSBuilding: [place] BMS.[facility] Repository 06/25/2018 [id number] Jason, Ambulatory BMSBuilding: [place] BMS.CF.[facility] Repository 06/25/2018 [id number] Ambulatory BMSBuilding: [place] BMS.[facility] Repository 06/24/2018 [id number] Ambulatory BMSBuilding: [place] BMS.[facility] Repository 06/22/2018 [id number] Ambulatory BMSBuilding: [place] BMS.CF.[facility] Repository 06/17/2018/06/17/20 [id number] Ambulatory [address] ding: Repository 06/16/2018/06/17/20 [id number] Ambulatory B[place]Building: [place] [address] [place] [address] Repository 06/15/2018 [id number] Ambulatory BMSBuilding: [place] BMS.CF.[facility] Repository 06/13/2018 [id number] Ambulatory BMSBuilding: [place] BMS.[facility] Repository 06/13/2018 [id number] [facility] [place] [facility] 06/09/2018 [id number] Ambulatory [facility] [place] [facility] 06/08/2018 [id number] Ambulatory [facility] ding:US Repository 06/06/2018 [id number] Ambulatory BMSBuilding: [place] BMS.[facility] Repository 06/06/2018/06/17/20 [id number] Ambulatory [address] ding:NS Repository 06/06/2018 [id number] Ambulatory BMSBuilding: [place] BMS.CF.[facility] Repository 06/06/2018 [id number] Ambulatory BMSBuilding: [place] [facility] Repository 05/31/2018/05/31/20 [id number] Ambulatory BMSBuilding: [place] 18 BMS.[facility] Repository 05/23/2018 [id number] Ambulatory BMSBuilding: [place] BMS.CF.[facility] Repository 05/23/2018 [id number] Ambulatory BMSBuilding: [place] BMS.[facility] [facility] [place] Repository 05/17/2018/05/17/20 [id number] Ambulatory [address] ding:[facility] Repository 05/10/2018/05/17/20 [id number] Ambulatory [address] ding:NS Repository 05/02/2018/05/17/20 [id number] Ambulatory [address] ding:WC Repository 05/02/2018 [id number] Ambulatory BMSBuilding: [place] BMS.CF.[facility] [place] Repository 04/27/2018/04/27/20 [id number] Ambulatory [address] Repository 04/27/2018/04/27/20 [id number] Ambulatory [address] MEDICAL Repository CENTERBuildi ng:AGPSYACC 04/25/2018 [id number] Ambulatory BMSBuilding: [place] BMS.CF.[facility] Repository 04/18/2018 [id number] Ambulatory BMSBuilding: [place] BMS.CF.[facility] [place] Repository 04/11/2018/04/16/20 [id number] Ambulatory [address] ding:NS Repository 04/05/2018 [id number] Ambulatory [facility] ding:OPBI Repository 04/04/2018/04/16/20 [id number] Ambulatory [address] ding:WC Repository 04/04/2018 [id number] Ambulatory BMSBuilding: [place] BMS.CF.[facility] Hospital Repository 03/29/2018 [id number] Ambulatory [facility] ding:CVS Repository 03/29/2018 [id number] Ambulatory BMSBuilding: [place] [facility] Repository 03/28/2018 [id number] Ambulatory BMSBuilding: [place] BMS.CF.[facility] Repository 03/23/2018 [id number] Ambulatory [facility] MEDICAL Repository CENTERBuildi ng:AGPSYACC 03/23/2018 [id number] Ambulatory [facility] MEDICAL Repository CENTERBuildi ng:AGPSYACC 03/17/2018 [id number] Ambulatory BMSBuilding: [place] BMS.CF.[facility] Repository 03/15/2018/03/17/20 [id number] Ambulatory [address] ding:WC Repository 03/15/2018 [id number] Ambulatory BMSBuilding: [place] BMS.CF.[facility] [place] Repository 03/07/2018/03/07/20 [id number] Ambulatory [address] ding:EN Repository 03/07/2018 [id number] Ambulatory BMSBuilding: [place] BMS.CF.[facility] Repository 03/01/2018/03/01/20 [id number] Ambulatory BMSBuilding: [place] 18 BMS.[facility] Repository 02/28/2018 [id number] Ambulatory BMSBuilding: [place] BMS.[facility] Repository 02/28/2018 [id number] Ambulatory BMSBuilding: [place] BMS.CF.[facility] Repository 02/28/2018 [id number] Ambulatory BMSBuilding: [place] BMS.CF.[facility] [place] Repository 02/21/2018 [id number] Ambulatory [facility] ding:LABSPEC Repository 02/15/2018 [id number] Ambulatory BMSBuilding: [place] BMS.CF.[facility] Repository 02/14/2018 [id number] Ambulatory [facility] ding:LABSPEC Repository 02/07/2018 [id number] Ambulatory BMSBuilding: [place] BMS.CF.[facility] Repository 02/02/2018/02/03/20 [id number] Ambulatory [address] Other [place] Repository 02/02/2018/02/03/20 [id number] Ambulatory [address] MEDICAL Repository CENTERBuildi ng:AGPSYACC 01/31/2018 [id number] Ambulatory [facility] ding:LABSPEC Repository 01/31/2018/02/01/20 [id number] Emergency [address] ding:ED Repository 01/31/2018/02/15/20 [id number] Ambulatory [address] ding:WC Repository 01/31/2018 [id number] Ambulatory BMSBuilding: [place] BMS.CF.[facility] Hospital Repository 01/27/2018 [id number] Ambulatory [facility] ding:LABSPEC Repository 01/27/2018/01/28/20 [id number] Ambulatory BMSBuilding: [place] 18 BMS.[facility] Repository 01/26/2018 [id number] Ambulatory BMSBuilding: [place] BMS.[facility] Repository 01/24/2018 [id number] Ambulatory [facility] ding:LABSPEC Repository 01/24/2018 [id number] Ambulatory BMSBuilding: [place] BMS.[facility] Repository 01/13/2018/01/18/20 [id number] Jose Robertson Inpatient [address] ding:VZ7Mvmc Repository : JI315Bcm: 1 01/13/2018 [id number] Jose Robertson Ambulatory BMSBuilding: [place] BMS.[facility] Repository 01/13/2018 [id number] Jose Robertson Ambulatory BMSBuilding: [place] BMS.[facility] Repository 01/13/2018 [id number] Jose Robertson Ambulatory BMSBuilding: [place] BMS.[facility] Repository 01/13/2018 [id number] Jose Robertson Ambulatory BMSBuilding: [place] BMS.CF.[facility] Repository 01/13/2018 [id number] Jose Robertson [facility]ulatory [facility] [place] [facility] 01/13/2018 [id number] Jose Robertson Ambulatory BMSBuilding: [place] BMS.[facility] Repository 01/13/2018 [id number] Jose Robertson Ambulatory [facility] [place] [facility] 01/13/2018 [id number] Ambulatory BMSBuilding: [place] BMS.[facility] Repository 01/10/2018 [id number] Ambulatory [facility] ding:EN Repository 01/10/2018/01/16/20 [id number] Ambulatory [address] ding:WC Repository 01/10/2018 [id number] Ambulatory BMSBuilding: [place] BMS.CF.[facility] Hospital Repository 01/07/2018 [id number] Ambulatory [facility] ding:MS2OUT Repository 01/04/2018 [id number] Ambulatory [facility] ding:CT Repository 01/03/2018/01/07/20 [id number] Jose Robertson Inpatient [address] ding:OT8Dfxh Repository : KG372Ggp: 1 01/03/2018 [id number] Jose Robertson Ambulatory BMSBuilding: [place] BMS.CF.[facility] Repository 01/03/2018 [id number] Jose Robertson Ambulatory BMSBuilding: [place] BMS.CF.[facility] Repository 01/03/2018/01/07/20 [id number] Ambulatory [place]Building: [place] [address] [place] [address] Repository 12/30/2017 [id number] Ambulatory BMSBuilding: [place] BMS.[facility] Repository 12/27/2017 [id number] Ambulatory BMSBuilding: [place] BMS.[facility] Repository 12/24/2017 [id number] Ambulatory [facility] ding:LABSPEC Repository 12/23/2017/12/24/19 [id number] Ambulatory BMSBuilding: [place] 18 BMS.[facility] Repository 12/23/2017 [id number] Ambulatory [facility] ding:CVS Repository 12/23/2017 [id number] Ambulatory BMSBuilding: [place] [facility] Repository 12/22/2017/12/23/19 [id number] Ambulatory BMSBuilding: [place] 18 BMS.[facility] Repository 12/21/2017/12/22/19 [id number] Ambulatory [address] Repository 12/21/2017/12/22/19 [id number] Ambulatory [address] MEDICAL Repository CENTERBuildi ng:AGPSYACC 12/10/2017 [id number] Ambulatory [facility] ding:BI Repository 12/09/2017/12/09/19 [id number] Ambulatory BMSBuilding: [place] 18 BMS.[facility] Repository 12/09/2017 [id number] Ambulatory BMSBuilding: [facility] Repository 12/06/2017 [id number] Ambulatory BMSBuilding: [place] BMS.[facility] Repository 11/15/2017 [id number] Ambulatory BMSBuilding: [place] BMS.[facility] Repository 11/11/2017 [id number] Ambulatory BMSBuilding: [facility] Repository 11/05/2017 [id number] Ambulatory BMSBuilding: [facility] Repository 11/03/2017 [id number] Ambulatory BMSBuilding: [facility] Repository 11/01/2017 [id number] Ambulatory BMSBuilding: [facility] Repository 10/27/2017/10/27/19 [id number] Ambulatory BMSBuilding: [place] 18 BMS.[facility] Repository 10/27/2017 [id number] Ambulatory BMSBuilding: [facility] Repository 10/25/2017 [id number] Ambulatory BMSBuilding: [place] BMS.[facility] Repository 10/21/2017 [id number] Ambulatory BMSBuilding: [facility] Repository 10/13/2017 [id number] Ambulatory BMSBuilding: [facility] Repository 10/13/2017 [id number] Ambulatory BMSBuilding: [facility] Repository 10/12/2017 [id number] Ambulatory BMSBuilding: [facility] Repository 10/08/2017 [id number] Ambulatory BMSBuilding: [facility] Repository 10/06/2017 [id number] Ambulatory [facility] ding:MRI Repository 10/05/2017 [id number] Ambulatory BMSBuilding: [place] BMS.[facility] Repository PAYERS PAYERS ENCOUNTER GUARANTOR PAYER SUBSCRIBER SOURCE 10/04/2018 GAIL Primary Insurance:JEREMY ESPINOZAOB: ACCESS [facility]: [facility] [id number] N Number: [id number] Repository BEVER [id number] [place], [place] Date: [address]Xfb: () 09/28/2018 GAIL Ortega Primary LIANNA [place] [id number] N Insurance:ANTHEMPolicy MENNERDOB: Community BEVER [place]: [id number] [id number] Repository 69491Zwq: (330) Date:3494-49-99Iy [phone] () [address] [place] [address] 54484KG: 09/28/2018 Secondary NOT GIVENUNK [place] Insurance:SELF PAY [facility] Number: Effective Repository Date:2018-09-28 09/27/2018 GAIL Ortega Primary LIANNA [place] [id number] N Insurance:ANTHEMPolicy MENNERDOB: [facility] BEVER Number: [id number] [id number] Repository 29987Fjw: (330) Date:6068-64-85Oz [phone] () [address] [place] [address] 71195QD: 09/27/2018 Secondary NOT GIVENUNK [place] Insurance:SELF PAY [facility] Number: Effective Repository Date:2018-08-09 09/26/2018 GAIL Ortega Primary LIANNA [place] [id number] N Insurance:ANTHEMPolicy MENNERDOB: [facility] BEVER Number: [id number] [id number] Repository 52[address]Afl: (330) Date:6425-59-57Nu [phone] () [address] [place] [address] 06256CQ: 09/26/2018 Secondary NOT GIVENUNK [place] Insurance:SELF PAY [facility] Number: Effective Repository Date:2018-09-26 09/26/2018 GAIL Ortega Primary LIANNA [place] [id number] N Insurance:ANTHEMPolicy MENNERDOB: [facility] BEVER Number: [id number] [id number] Repository 91555Tqd: (330) Date:7954-42-75Pc [phone] () 264963Afauotw, [place] [address]GZ: 09/26/2018 Secondary NOT GIVENUNK [place] Insurance:SELF PAY [facility] Number: Effective Repository Date:2018-04-25 09/21/2018 GAIL Ortega Primary LIANNA [place] [id number] N Insurance:ANTHEMPolicy MENNERDOB: Community BEVER Number: [id number] [id number] Repository 34558Hbd: (330) Date:6042-59-52Hd [phone] () 262462Pcvodsb, [place] [address]LX: 09/21/2018 Secondary NOT GIVENUNK [place] Insurance:SELF PAY [facility] Number: Effective Repository Date:2018-08-09 09/14/2018 GAIL Ortega Primary LIANNA [place] [id number] N Insurance:ANTHEMPolicy MENNERDOB: Community BEVER Number: [id number] [id number] Repository 56209Qly: (330) Date:1840-91-54Dh [phone] () 076892Ajndwcc, [place] [address]NS: 09/14/2018 Secondary NOT GIVENUNK [place] Insurance:SELF PAY [facility] Number: Effective Repository Date:2018-09-14 09/12/2018 GAIL Ortega Primary LIANNA [place] [id number] N Insurance:ANTHEMPolicy MENNERDOB: Community BEVER Number: [id number] [id number] Repository 91131Wre: (330) Date:6320-78-05Om [phone] () 089550Jrivvix, [place] [address]IM: 09/12/2018 Secondary NOT GIVENUNK [place] Insurance:SELF PAY [facility] Hospital Number: Effective Repository Date:2018-09-12 09/12/2018 GAIL A Primary LIANNA [place] [id number] N Insurance:ANTHEMPolicy MENNERDOB: Community BEVER Number: [id number] [id number] Repository 885[address]Siw: (330) Date:2101-88-19Xe [phone] () 008654Vtqbhjo, [place] [address]PZ: 09/12/2018 Secondary GAIL A [place] Insurance:CHEMO PAJAKDOB: [facility] [id number] Hospital Number: Repository [id number] Date:2017-07-09 09/12/2018 Tertiary NOT GIVENUNK [place] Insurance:SELF PAY [facility] Number: Effective Repository Date:2017-07-09 09/12/2018 GAIL A Primary LIANNA [place] [id number] N Insurance:ANTHEMPolicy MENNERDOB: Community BEVER Number: [id number] [id number] Repository 49587Hxm: (330) Date:1658-37-69Aj [phone] () [address] [place] [address] [place] [address]PF: 09/12/2018 Secondary GAIL A [place] Insurance:CHEMO PAJAKDOB: [facility] [id number] Hospital Number: Repository [id number] Date:2018-09-12 09/12/2018 Tertiary NOT GIVENUNK [place] Insurance:SELF PAY [facility] Number: Effective Repository Date:2018-09-12 09/12/2018 GAIL A Primary LIANNA [place] [id number] N Insurance:ANTHEMPolicy MENNERDOB: Community BEVER Number: [id number] [id number] Repository 63992Pew: (330) Date:5335-98-77Np [phone] () 575159Uwdlmmk, [place] [address]YX: 09/12/2018 Secondary NOT GIVENUNK [place] Insurance:SELF PAY [facility] Hospital Number: Effective Repository Date:2018-09-12 08/28/2018 GAIL A Primary LIANNA [place] [id number] N Insurance:ANTHEMPolicy MENNERDOB: Community BEVER Number: [id number] [place] [id number] Repository 42021Bda: (330) Date:7263-20-93Vn [phone] () MATHEW Willard [address]VG: 08/28/2018 Secondary NOT GIVENUNK [place] Insurance:SELF PAY Community [facility] Number: Effective Repository Date:2018-08-18 08/26/2018 GAIL [place]te[place] Primary LIANNA [place] [id number] N Insurance:ANTHEMPolicy MENNERDOB: Community BEVER Number: [id number] [place] [id number] Repository 475[address]Hap: (330) Date:1538-01-71Ir [phone] () MATHEW Will[place] [address]ZI: 08/26/2018 Secondary NOT GIVENUNK [place] Insurance:SELF PAY [facility] Number: Effective Repository Date:2018-08-23 08/17/2018 GAIL Ortega Primary LIANNA [place] [id number] N Insurance:ANTHEMPolicy MENNERDOB: Community BEVER Number: [id number] [place] [id number] Repository 11768Nzl: (330) Date:2068-52-24Nz [address] [phone] () MATHEW Willard [address]QR: 08/17/2018 Secondary NOT GIVENUNK [place] Insurance:SELF PAY [facility] Number: Effective Repository Date:2018-08-17 08/16/2018 GAIL Ortega Primary LIANNA [place] [id number] N Insurance:ANTHEMPolicy MENNERDOB: Community BEVER Number: [id number] [id number] Repository 78[address]Owv: (330) Date:0208-01-26Bv [address] [phone] () MATHEW Willard [address]RF: 08/16/2018 Secondary NOT GIVENUNK [place] Insurance:SELF PAY [facility] Number: Effective Repository Date:2018-08-16 08/16/2018 GAIL Ortega Primary LIANNA [place] [id number] N Insurance:ANTHEMPolicy MENNERDOB: Community BEVER Number: [id number] [place], [place] [id number] Repository 83919Qqk: 330) Date:0550-51-48Rh [phone] () [address] [place] [address] 45592ZV: 08/16/2018 Secondary NOT GIVENUNK [place] Insurance:SELF PAY [facility] Number: Effective Repository Date:2018-08-16 08/11/2018 GAIL Ortega Primary LIANNA [place] [id number] N Insurance:ANTHEMPolicy MENNERDOB: [facility] BEVER Number: [id number] [place] [id number] Repository 57[address]Hwk: (330) Date:6186-55-36Qg [address] [phone] () 9[address]Nerbimg[address] [place] [address] 97866UT: 08/11/2018 Secondary NOT GIVENUNK [place] Insurance:SELF PAY [facility] Number: Effective Repository Date:2018-07-18 08/04/2018 GAIL Ortega Primary LIANNA [place] [id number] N Insurance:ANTHEMPolicy MENNERDOB: [facility] BEVER Number: [id number] [id number] Repository 84007Jky: (330) Date:8363-54-91Wq [address] [phone] () 854553Qatzwrr [place] [address]YQ: 08/04/2018 Secondary NOT GIVENUNK [place] Insurance:SELF PAY [facility] Number: Effective Repository Date:2018-08-04 08/04/2018 GAIL Ortega Primary LIANNA [place] [id number] N Insurance:ANTHEMPolicy MENNERDOB: [facility] BEVER Number: [id number] [place] [id number] Repository 89280Bek: (330) Date:5275-54-17Bj [address] [phone] () 914502Swuiqqp, [place] [address]TY: 08/04/2018 Secondary NOT GIVENUNK [place] Insurance:SELF PAY Community [facility] Number: Effective Repository Date:2018-08-04 08/03/2018 GAIL Ortega Primary LIANNA [place] [id number] N Insurance:ANTHEMPolicy MENNERDOB: Community BEVER Number: [id number] [place] [id number] Repository 507[address]Jsv: (330) Date:4721-99-68Ok [phone] () 888629Xbudmxb, [place] [address]WB: 08/03/2018 Secondary NOT GIVENUNK [place] Insurance:SELF PAY [facility] Number: Effective Repository Date:2018-07-29 08/02/2018 GAIL Ortega Primary Insurance:SELF NOT GIVENUNK [place] [id number] N [facility]Y [facility] Number: Effective [place] Date:2018-08-02 Repository 032[address]Zim: () 07/28/2018 GAIL Ortega Primary LIANNA [place] [id number] N Insurance:ANTHEMPolicy MENNERDOB: Community BEVER Number: [id number] [place], [place] [id number] Repository 00925Jmj: (330) Date:8606-49-77Ze [phone] () 202712Zpibmsi, [place] [address]KT: 07/28/2018 Secondary NOT GIVENUNK [place] Insurance:SELF PAY Community [facility] Number: Effective Repository Date:2018-07-28 07/27/2018 GAIL Ortega Primary LIANAN [place] [id number] N Insurance:ANTHEMPolicy MENNERDOB: Community BEVER Number: [id number] [place] [id number] Repository 666[address]Dpa: (330) Date:2048-99-66Wk [address] [phone] () 802003Hggdlkp, [place] [address]MQ: 07/27/2018 Secondary NOT GIVENUNK [place] Insurance:SELF PAY [facility] Number: Effective Repository Date:2018-07-27 07/26/2018 GAIL Primary Insurance:BLUE LIANNA [facility] PAJAKDOB: ACCESS PPOPolicy MENNERDOB: Health System N Number: [id number] [facility] [id number] [place] Date: [address]Sdp: () 07/21/2018 GAIL Ortega Primary LIANNA [place] [id number] N Insurance:ANTHEMPolicy MENNERDOB: [facility] Number: [id number] [place] [id number] Repository 65147Doh: (330) Date:8607-10-20Ty [phone] () 679635Vvhyxdm, [place] [address]OD: 07/21/2018 Secondary NOT GIVENUNK [place] Insurance:SELF PAY [facility] Number: Effective Repository Date:2018-07-21 07/20/2018 GAIL Ortega Primary LIANNA [place] [id number] N Insurance:ANTHEMPolicy MENNERDOB: [facility] Number: [id number] [place] [id number] Repository 76463Eaw: (330) Date:9629-79-75Hg [address] [phone] () 901183Sizcogb, [place] [address]FH: 07/20/2018 Secondary NOT GIVENUNK [place] Insurance:SELF PAY [facility] Number: Effective Repository Date:2018-07-20 07/20/2018 GAIL Ortega Primary LIANNA [place] [id number] N Insurance:ANTHEMPolicy MENNERDOB: [facility] Number: [id number] [place] [id number] Repository 31774Qob: (330) Date:2636-63-14Vn [phone] () [id number] [place] [address]06[address]VW: 07/20/2018 Secondary NOT GIVENUNK [place] Insurance:SELF PAY [facility] Number: Effective Repository Date:2018-07-20 07/19/2018 GAIL Ortega Primary LIANNA [place] [id number] N Insurance:ANTHEMPolicy MENNERDOB: Community BEVER Number: [id number] [place] [id number] Repository 67529Pkb: (330) Date:5832-27-76Dc [address] [phone] () [address] [place] [address] 34419AD: 07/19/2018 Secondary NOT GIVENUNK [place] Insurance:SELF PAY [facility] Number: Effective Repository Date:2018-07-19 07/15/2018 GAIL A Primary LIANNA [place] [id number] N Insurance:ANTHEMPolicy MENNERDOB: Community BEVER Number: [id number] [place] [id number] Repository 01757Zub: 330) Date:3563-71-77Gf [address] [phone] () [address] [place] [address] 828[address]BI: 07/15/2018 Secondary GAIL A [place] Insurance:CHEMO PAJAKDOB: [facility] [place] [place] [id number] Hospital Number: 0Effective Repository Date:2018-01-10 07/15/2018 Tertiary NOT GIVENUNK [place] Insurance:SELF PAY [facility] Hospital Number: Effective Repository Date:2018-06-18 07/14/2018 GAIL A Primary LIANNA [place] [id number] N Insurance:ANTHEMPolicy MENNERDOB: [facility] BEVER Number: [id number] Town, [place] [id number] Repository 13970Wtr: (187) Date:4101-03-28Fl [phone] () [id number] [place] [address]97[address]SH: 07/14/2018 Secondary GAIL A [place] Insurance:CHEMO PAJAKDOB: [facility] [place] [id number] Hospital Number: 0Effective Repository Date:2018-01-10 07/14/2018 Tertiary NOT GIVENUNK [place] Insurance:SELF PAY [facility] Number: Effective Repository Date:2018-07-14 07/13/2018 GAIL Ortega Primary LIANNA [place] [id number] N Insurance:ANTHEMPolicy MENNERDOB: Community BEVER Number: [id number] [place] [id number] Repository 13[address]Xjf: (330) Date:2477-00-48Zt [phone] () [id number] [place] [address]OE: 07/13/2018 Secondary NOT GIVENUNK [place] Insurance:SELF PAY [facility] Number: Effective Repository Date:2018-07-13 07/12/2018 GAIL Ortega Primary LIANNA [place] [id number] N Insurance:ANTHEMPolicy MENNERDOB: [facility] BEVER Number: [id number] [place] [id number] Repository 41341Bkv: (330) Date:1035-70-74Gg [address] [phone] () 131056Dpblvqx [place] [address]EZ: 07/12/2018 Secondary NOT GIVENUNK [place] Insurance:SELF PAY [facility] Number: Effective Repository Date:2018-07-08 07/11/2018 GALI Ortega Primary LIANNA [place] [id number] N Insurance:ANTHEMPolicy MENNERDOB: [facility] BEVER Number: [id number] [place] [id number] Repository 48621Hhm: (330) Date:4550-77-03Mi [address] [phone] () 518246Hzyvgpy, [place] [address]ER: 07/11/2018 Secondary NOT GIVENUNK [place] Insurance:SELF PAY [facility] Number: Effective Repository Date:2018-07-11 07/11/2018 GAIL Ortega Primary LIANNA [place] [id number] N Insurance:ANTHEMPolicy MENNERDOB: [facility] BEVER Number: [id number] [place] [id number] Repository 52910Nde: (330) Date:9410-39-40Qd [address] [phone] () 014514Pyboipw, [place] [address]BA: 07/11/2018 Secondary NOT GIVENUNK [place] Insurance:SELF PAY [facility] Number: Effective Repository Date:2018-06-29 07/07/2018 GAIL A Primary LIANNA [place] [id number] N Insurance:ANTHEMPolicy MENNERDOB: Community BEVER Number: [id number] [place] [id number] Repository 97967Cyk: (330) Date:9239-77-16Fv [address] [phone] () 044036Aphxegj, [place] [address]ZG: 07/07/2018 Secondary GAIL A [place] Insurance:CHEMO PAJAKDOB: [facility] [id number] Hospital Number: 0Effective Repository Date:2018-01-10 07/07/2018 Tertiary NOT GIVENUNK [place] Insurance:SELF PAY [facility] Number: Effective Repository Date:2018-07-07 07/04/2018 GAIL A Primary LIANNA [place] [id number] N Insurance:ANTHEMPolicy MENNERDOB: Community BEVER Number: [id number] [place] [id number] Repository 47069Vto: (330) Date:6002-70-25Kd [phone] () 592913Zzhxery, [place] [address]SU: 07/04/2018 Secondary NOT GIVENUNK [place] Insurance:SELF PAY [facility] Number: Effective Repository Date:2018-07-04 07/04/2018 GAIL A Primary LIANNA Rosa [id number] N Insurance:ANTHEMPolicy MENNERDOB: Community BEVER [place]: [id number] [id number] Repository 80266Xno: (330) Date:9594-59-60Lo [phone] () MATHEW Willard [address]TY: 07/04/2018 Secondary NOT GIVENUNK [place] Insurance:SELF PAY [facility] Number: Effective Repository Date:2018-06-13 06/30/2018 GAIL A Primary LIANNA [place] [id number] N Insurance:ANTHEMPolicy MENNERDOB: Community BEVER Number: [id number] [place] [id number] Repository 12840Xde: (330) Date:2865-95-75Zn [phone] () [address] [place] [address] 63798DS: 06/30/2018 Secondary GAIL A [place] Insurance:CHEMO PAJAKDOB: [facility] [id number] Hospital Number: 0Effective Repository Date:2018-01-10 06/30/2018 Tertiary NOT GIVENUNK [place] Insurance:SELF PAY [facility] Number: Effective Repository Date:2018-06-30 06/29/2018 GAIL A Primary LIANNA Rosa [id number] N Insurance:ANTHEMPolicy MENNERDOB: Community BEVER Number: [id number] [place] [id number] Repository 11328Jkd: (330) Date:4642-85-53Mx [phone] () [address] [place] [address] 61118NY: 06/29/2018 Secondary GAIL A [place] Insurance:CHEMO PAJAKDOB: [facility] [id number] Hospital Number: 0Effective Repository Date:2018-01-10 06/29/2018 Tertiary NOT GIVENUNK [place] Insurance:SELF PAY [facility] Number: Effective Repository Date:2018-06-29 06/28/2018 GAIL A Primary LIANNA [place] [id number] N Insurance:ANTHEMPolicy MENNERDOB: Community BEVER Number: [id number] [id number] Repository 84568Ckz: (132) Date:1298-45-71An [phone] () [address] [place] [address] 75677WC: 06/28/2018 Secondary GAIL A [place] Insurance:CHEMO PAJAKDOB: [facility] [id number] Hospital Number: 0Effective Repository Date:2018 06/28/2018 Tertiary NOT GIVENUNK [place] Insurance:SELF PAY [facility] Number: Effective Repository Date:2018-06-18 06/25/2018 GAIL A Primary LIANNA Rosa [id number] N Insurance:ANTHEMPolicy MENNERDOB: Community BEVER Number: [id number] [id number] Repository 16010Lyk: (330) Date:7322-99-31Ov [phone] () 924891Xfwmryh, [place] [address]FI: 06/25/2018 Secondary GAIL A [place] Insurance:CHEMO PAJAKDOB: [facility] [id number] Hospital Number: Repository [id number] Date:2018-06-09 06/25/2018 Tertiary NOT GIVENUNK [place] Insurance:SELF PAY Community [facility] Number: Effective Repository Date:2018-06-09 06/25/2018 GAIL A Primary LIANNA [place] [id number] N Insurance:ANTHEMPolicy MENNERDOB: Community BEVER Number: [id number] [id number] Repository 17884Twk: (330) Date:7456-35-92Fp [phone] () 830348Lpqwhgh, [place] [address]IA: 06/25/2018 Secondary NOT GIVENUNK [place] Insurance:SELF PAY Community [facility] Number: Effective Repository Date:2018-06-25 06/25/2018 GAIL A Primary LIANNA [place] [id number] N Insurance:ANTHEMPolicy MENNERDOB: Community BEVER Number: [id number] [id number] Repository 48761Ary: (330) Date:3358-98-89La [phone] () MATHEW Willard 00828AS: 06/25/2018 Secondary GAIL A [place] Insurance:CHEMO PAJAKDOB: [facility] [id number] Hospital Number: Repository [id number] Date:2018-06-09 06/25/2018 Tertiary NOT GIVENUNK [place] Insurance:SELF PAY [facility] Number: Effective Repository Date:2018-06-24 06/25/2018 GAIL A Primary LIANNA [place] [id number] N Insurance:ANTHEMPolicy MENNERDOB: Community BEVER Number: [id number] [id number] Repository 03505Wqw: (330) Date:1408-71-77Id [address] [phone] () 075216Uugxtar, [place] [address]CJ: 06/25/2018 Secondary NOT GIVENUNK [place] Insurance:SELF PAY [facility] Number: Effective Repository Date:2018-06-25 06/24/2018 GAIL A Primary LIANNA [place] [id number] N Insurance:ANTHEMPolicy MENNERDOB: Community BEVER Number: [id number] [place], [place] [id number] Repository 14115Svq: (330) Date:1937-03-90Ic [address] [phone] () 412906Nfiylfz, [place] [address]ID: 06/24/2018 Secondary GAIL A [place] Insurance:CHEMO PAJAKDOB: [facility] [place], [place] [id number] Hospital Number: 0Effective Repository Date:2018-06-09 06/24/2018 Tertiary NOT GIVENUNK [place] Insurance:SELF PAY [facility] Hospital Number: Effective Repository Date:2018-06-24 06/22/2018 GAIL A Primary LIANNA Rosa [id number] N Insurance:ANTHEMPolicy MENNERDOB: Community BEVER Number: [id number] [place], [place] [id number] Repository 01702Hjw: (330) Date:9330-89-35Zk [phone] () 477[address]Ph[place], [place] [address]FD: 06/22/2018 Secondary GAIL A [place] Insurance:CHEMO PAJAKDOB: [facility] [id number] Hospital Number: 0Effective Repository Date:2018-01-10 06/22/2018 Tertiary NOT GIVENUNK [place] Insurance:SELF PAY Community [facility] Number: Effective Repository Date:2018-06-22 06/17/2018 GAIL A Primary LIANNA Rosa [id number] N Insurance:ANTHEMPolicy MENNERDOB: Community BEVER Number: [id number] [place] [id number] Repository 24285Yar: (330) Date:5423-99-47Mz [address] [phone] () 237119Yefzwpa, [place] [address]DR: 06/17/2018 Secondary GAIL A [place] Insurance:CHEMO PAJAKDOB: [facility] [id number] Hospital Number: 0Effective Repository Date:2018-01-10 06/17/2018 Tertiary NOT GIVENUNK [place] Insurance:SELF PAY [facility] Number: Effective Repository Date:2018-05-18 06/16/2018 GAIL A Primary LIANNA [place] [id number] N Insurance:ANTHEMPolicy MENNERDOB: [facility] BEVER Number: [id number] [place] [id number] Repository 53563Als: (330) Date:9470-78-78Go [address] [phone] () 059475Birenyq, [place] [address]GK: 06/16/2018 Secondary GAIL A [place] Insurance:CHEMO PAJAKDOB: [facility] [id number] Hospital Number: 0Effective Repository Date:2018-01-10 06/16/2018 Tertiary NOT GIVENUNK [place] Insurance:SELF PAY [facility] Number: Effective Repository Date:2018-06-16 06/15/2018 GAIL A Primary LIANNA [place] [id number] N Insurance:ANTHEMPolicy MENNERDOB: Community BEVER Number: [id number] [place] [id number] Repository 90942Yji: (330) Date:0067-56-58Be [address] [phone] () 292834Eusnjfc, [place] [address]JL: 06/15/2018 Secondary GAIL A [place] Insurance:CHEMO PAJAKDOB: [facility] ASSISTANCEPolic [id number] Hospital Number: 0Effective Repository Date:2018-01-10 06/15/2018 Tertiary NOT GIVENUNK [place] Insurance:SELF PAY [facility] Number: Effective Repository Date:2018-06-15 06/13/2018 GAIL A Primary LIANNA [place] [id number] N Insurance:ANTHEMPolicy MENNERDOB: [facility] Number: [id number] [place] [id number] Repository 26051Foz: (330) Date:0133-98-37Bn [address] [phone] () 265554Znbdteq, [place] [address]BK: 06/13/2018 Secondary GAIL A [place] Insurance:CHEMO PAJAKDOB: [facility] [id number] Hospital Number: 0Effective Repository Date:2017-07-09 06/13/2018 Tertiary NOT GIVENUNK [place] Insurance:SELF PAY [facility] Number: Effective Repository Date:2018-06-13 06/13/2018 GAIL A Primary LIANNA [place] [id number] N Insurance:ANTHEMPolicy MENNERDOB: [facility] Number: [id number] [place], [place] [id number] Repository 72556Ojz: (330) Date:9609-43-32Gn [address] [phone] () 470213Jxxupyp, [place] [address]ZI: 06/13/2018 Secondary GAIL A [place] Insurance:CHEMO PAJAKDOB: [facility] [id number] Hospital Number: 0Effective Repository Date:2018-06-09 06/13/2018 Tertiary NOT GIVENUNK [place] Insurance:SELF PAY [facility] Number: Effective Repository Date:2018-06-13 06/09/2018 GAIL A Primary LIANNA [place] [id number] N Insurance:ANTHEMPolicy MENNERDOB: Community BEVER Number: [id number] [place], [place] [id number] Repository 82587Egd: (330) Date:0391-60-43Qt [address] [phone] () 339304Ntjwawi, [place] [address]YA: 06/09/2018 Secondary GAIL A [place] Insurance:CHEMO PAJAKDOB: [facility] [id number] Hospital Number: 0Effective Repository Date:2018-01-10 06/09/2018 Tertiary NOT GIVENUNK [place] Insurance:SELF PAY [facility] Number: Effective Repository Date:2018-06-09 06/08/2018 GAIL A Primary LIANNA [place] [id number] N Insurance:ANTHEMPolicy MENNERDOB: [facility] BEVER Number: [id number] [place] [id number] Repository 58862Oix: (330) Date:6466-28-31Ru [address] [phone] () 892938Xfghabz, [place] [address]RY: 06/08/2018 Secondary GAIL A [place] Insurance:CHEMO PAJAKDOB: [facility], [place] [id number] Hospital Number: 0Effective Repository Date:2018-05-31 06/08/2018 Tertiary NOT GIVENUNK [place] Insurance:SELF PAY [facility] Hospital Number: Effective Repository Date:2018-05-31 06/06/2018 GAIL A Primary LIANNA [place] [id number] N Insurance:ANTHEMPolicy MENNERDOB: [facility] BEVER Number: [id number] [place] [id number] Repository 48573Wql: (330) Date:1989-53-12Bi [address] [phone] () 825471Rzsbeci, [place] [address]XH: 06/06/2018 Secondary GAIL A [place] Insurance:CHEMO PAJAKDOB: [facility] [place], [place] [id number] Hospital Number: 0Effective Repository Date:2018-04-15 06/06/2018 Tertiary NOT GIVENUNK [place] Insurance:SELF PAY Community [facility] Number: Effective Repository Date:2018-05-05 06/06/2018 GAIL A Primary LIANNA [place] [id number] N Insurance:ANTHEMPolicy MENNERDOB: Community BEVER Number: [id number] [place], [place] [id number] Repository 96141Hwr: (330) Date:2190-24-49Hu [address] [phone] () [address] [place] [address] [place] [address]NK: 06/06/2018 Secondary GAIL A [place] Insurance:CHEMO PAJAKDOB: [facility] [id number] Hospital Number: 0Effective Repository Date:2018 06/06/2018 Tertiary NOT GIVENUNK [place] Insurance:SELF PAY [facility] Number: Effective Repository Date:2018-05-18 06/06/2018 GAIL A Primary LIANNA [place] [id number] N Insurance:ANTHEMPolicy MENNERDOB: Community BEVER Number: [id number] [place] [id number] Repository 06725Jgd: (330) Date:9383-60-34Zc [address] [phone] () 727187Svcjkbo, [place] [address]ZD: 06/06/2018 Secondary NOT GIVENUNK [place] Insurance:SELF PAY [facility] Number: Effective Repository Date:2018-06-06 06/06/2018 GAIL A Primary LIANNA [place] [id number] N Insurance:ANTHEMPolicy MENNERDOB: Community BEVER Number: [id number] [place] [id number] Repository 67158Nkf: (330) Date:4192-86-13Nk [address] [phone] () 393539Rxklhud, [place] [address]LB: 06/06/2018 Secondary GAIL A [place] Insurance:CHEMO PAJAKDOB: [facility] [id number] Hospital Number: 0Effective Repository Date:2018-01-10 06/06/2018 Tertiary NOT GIVENUNK [place] Insurance:SELF PAY Community [facility] Number: Effective Repository Date:2018-06-06 05/31/2018 GAIL Ortega Primary LIANNA [place] [id number] N Insurance:ANTHEMPolicy MENNERDOB: Community BEVER Number: [id number] [id number] Repository 93323Zto: (330) Date:6519-64-95Mc [address] [phone] () 392448Vwokcan, [place] [address]TP: 05/31/2018 Secondary GAIL Ortega [place] Insurance:CHEMO PAJAKDOB: [facility] [id number] Hospital Number: 0Effective Repository Date:2018-05-17 05/31/2018 Tertiary NOT GIVENUNK [place] Insurance:SELF PAY [facility] Number: Effective Repository Date:2018-05-31 05/23/2018 GAIL Ortega Primary LIANNA [place] [id number] N Insurance:ANTHEMPolicy MENNERDOB: Community BEVER Number: [id number] [place] [id number] Repository 23494Ofq: (330) Date:3858-24-37Es [address] [phone] () 466688Qplphql, [place] [address]HR: 05/23/2018 Secondary NOT GIVENUNK [place] Insurance:SELF PAY [facility] Number: Effective Repository Date:2018-05-23 05/23/2018 GAIL Ortega Primary LIANNA [place] [id number] N Insurance:ANTHEMPolicy MENNERDOB: Community BEVER Number: [id number] [place] [id number] Repository 20739Iuw: (330) Date:4150-30-06Yf [address] [phone] () 300046Wvveono, [place] [address]KJ: 05/23/2018 Secondary NOT GIVENUNK [place] Insurance:SELF PAY [facility] Number: Effective Repository Date:2018-05-23 05/17/2018 [facility]IL [facility] [place]JAKD[facility]: Insurance:ANTHEM BLUE MENNERDOB: [facility] N [employer] COMMERCIALPolicy [id number] Repository BEVER Number: N [place], [place] [id number] [place] [address]~2@O Date:2018-05-1737555Jyr: (464) JEFFERS.EDUTel: 7104-82-27Dfxd [phone] Name:BPO BOX (HP)Tel: (000) ()Tel: (649) 079950Jqakwpz[address] [place] [address] [phone] () [phone] () 915[address]JX: 05/10/2018 GAIL Ortega Primary LIANNA [place] [id number] N Insurance:ANTHEMPolicy MENNERDOB: [facility] BEVER Number: [id number] [place], [place] [id number] Repository 62373Kdf: (330) Date:6763-56-89Ze [address] [phone] () [address] [place] [address] 14008YO: 05/10/2018 Secondary GAIL A [place] Insurance:CHEMO PAJAKDOB: [facility], [place] [id number] Hospital Number: 0Effective Repository Date:2018 05/10/2018 Tertiary NOT GIVENUNK [place] Insurance:SELF PAY [facility] Number: Effective Repository Date:2018-04-17 05/02/2018 GAIL A Primary LIANNA [place] [id number] N Insurance:ANTHEMPolicy MENNERDOB: [facility] BEVER Number: [id number] [place] [id number] Repository 70323Bqw: (330) Date:4040-42-31Oi [address] [phone] () [address] [place] [address] 13158DJ: 05/02/2018 Secondary GAIL A [place] Insurance:CHEMO PAJAKDOB: [facility] [place], [place] [id number] Hospital Number: 0Effective Repository Date:2018-01-10 05/02/2018 Tertiary NOT GIVENUNK [place] Insurance:SELF PAY [facility] Number: Effective Repository Date:2018-04-17 05/02/2018 GAIL Ortega Primary LIANNA [place] [id number] N Insurance:ANTHEMPolicy MENNERDOB: Community BEVER Number: [id number] [place], [place] [id number] Repository 52664Pnk: (330) Date:6139-97-89Gz [address] [phone] () [address]To[address] [place] [address] 83832AQ: 05/02/2018 Secondary GAIL A [place] Insurance:CHEMO PAJAKDOB: [facility] [place], [place] [id number] [facility] Number: 0Effective Repository Date:2018-01-10 05/02/2018 Tertiary NOT GIVENUNK [place] Insurance:SELF PAY [facility] Number: Effective Repository Date:2018-05-02 04/27/2018 GAIL Primary Insurance:BLUE LIANNA R [facility] PAJAKDOB: ACCESS [facility] N Number: [id number] [facility] [id number] [place], [place] Date: [address]Juf: () 04/25/2018 GAIL Ortega Primary LIANNA [place] [id number] N Insurance:ANTHEMPolicy MENNERDOB: [facility] Number: [id number] [place] [id number] Repository 40026Gps: (330) Date:3530-35-79Gx [address] [phone] () [address] [place] [address] 43396ST: 04/25/2018 Secondary NOT GIVENUNK [place] Insurance:SELF PAY [facility] Number: Effective Repository Date:2018-04-25 04/18/2018 GAIL Ortega Primary LIANNA [place] [id number] N Insurance:ANTHEMPolicy MENNERDOB: [facility] Number: [id number] [id number] Repository 15959Htc: (330) Date:3817-23-13Xv Box [phone] () 742692Tdljmiv, [place] [address]VQ: 04/18/2018 Secondary GAIL A [place] Insurance:CHEMO PAJAKDOB: Community ASSISTANCEPolicy [id number] Hospital Number: 0Effective Repository Date:2018-01-10 04/18/2018 Tertiary NOT GIVENUNK [place] Insurance:SELF PAY [facility] Number: Effective Repository Date:2018-04-18 04/11/2018 GAIL A Primary LIANNA [place] [id number] N Insurance:ANTHEMPolicy MENNERDOB: Community BEVER Number: [id number] [place] [id number] Repository 25519Von: (330) Date:6764-30-26Mk [address] [phone] () 086651Mltinry, [place] [address]PR: 04/11/2018 Secondary GAIL A [place] Insurance:CHEMO PAJAKDOB: [facility] [id number] Hospital Number: 0Effective Repository Date:2018 04/11/2018 Tertiary NOT GIVENUNK [place] Insurance:SELF PAY [facility] Number: Effective Repository Date:2018 04/05/2018 GAIL A Primary LIANNA [place] [id number] N Insurance:ANTHEMPolicy MENNERDOB: Community BEVER Number: [id number] [place] [id number] Repository 93574Kvo: (330) Date:9848-93-73Wx [address] [phone] () 045668Rgtsenn, [place] [address]UL: 04/05/2018 Secondary NOT GIVENUNK [place] Insurance:SELF PAY [facility] Number: Effective Repository Date:2018-03-17 04/04/2018 GAIL A Primary LIANNA [place] [id number] N Insurance:ANTHEMPolicy MENNERDOB: Community BEVER Number: [id number] [place], [place] [id number] Repository 72765Ppt: (330) Date:3837-05-75Qn [address] [phone] () [address] [place] [address] [place] [address]TG: 04/04/2018 Secondary GAIL A [place] Insurance:CHEMO PAJAKDOB: [facility] [id number] Hospital Number: 0Effective Repository Date:2018-01-10 04/04/2018 Tertiary NOT GIVENUNK [place] Insurance:SELF PAY [facility] Number: Effective Repository Date:2018-03-18 04/04/2018 GAIL A Primary LIANNA [place] [id number] N Insurance:ANTHEMPolicy MENNERDOB: [facility] Number: [id number] [place] [id number] Repository 99086Nzk: (330) Date:8211-60-87Fn Box [phone] () 805671G[place]hey [place] [address]TW: 04/04/2018 Secondary GAIL A [place] Insurance:CHEMO PAJAKDOB: [facility] [id number] Hospital Number: 0Effective Repository Date:2018-01-10 04/04/2018 Tertiary NOT GIVENUNK [place] Insurance:SELF PAY [facility] Number: Effective Repository Date:2018-04-04 03/29/2018 GAIL A Primary LIANNA [place] [id number] N Insurance:ANTHEMPolicy MENNERDOB: [facility] Number: [id number] [place] [id number] Repository 84335Vul: (330) Date:6248-08-93Pm [address] [phone] () 512320Xbmbekb [place] [address]TO: 03/29/2018 Secondary GAIL A [place] Insurance:CHEMO PAJAKDOB: [facility] [place], [place] [id number] Hospital Number: 0Effective Repository Date:2018-02-28 03/29/2018 Tertiary NOT GIVENUNK [place] Insurance:SELF PAY [facility] Hospital Number: Effective Repository Date:2018-02-28 03/29/2018 GAIL A Primary LIANNA [place] [id number] N Insurance:ANTHEMPolicy MENNERDOB: Community BEVER Number: [id number] [place] [id number] Repository 08754Avl: (330) Date:8810-60-17Vl Box [phone] () [address] [place] [address] 49125LF: 03/29/2018 Secondary GAIL A [place] Insurance:CHEMO PAJAKDOB: [facility] [id number] Hospital Number: 0Effective Repository Date:2018-02-28 03/29/2018 Tertiary NOT GIVENUNK [place] Insurance:SELF PAY [facility] Number: Effective Repository Date:2018-03-29 03/28/2018 GAIL A Primary LIANNA [place] [id number] N Insurance:ANTHEMPolicy MENNERDOB: [facility] Number: [id number] [place], [place] [id number] Repository 83721Lcl: (330) Date:4535-76-55Qr Box [phone] () [address] [place] [address] 14149XS: 03/28/2018 Secondary NOT GIVENUNK [place] Insurance:SELF PAY [facility] Number: Effective Repository Date:2018-03-28 03/23/2018 GAIL Primary Insurance:BLUE LIANNA R [facility] PAJAKDOB: ACCESS PPO BHPolicy MENNERDOB: Health System N Number: [id number] Repository [facility] [id number] [place], [place] Date: [address]Qbo: (HP) 03/23/2018 GAIL Primary Insurance:BLUE LIANNA R [facility] PAJAKDOB: ACCESS PPO BHPolicy MENNERDOB: Health System N Number: [id number] [facility] [id number] [place], [place] Date: [address]Jup: (HP) 03/17/2018 GAIL A Primary LIANNA [place] [id number] N Insurance:ANTHEMPolicy MENNERDOB: Community BEVER Number: [id number] [id number] Repository 10604Knr: (330) Date:6927-97-11Mw [address] [phone] () [address] [place] [address] 22797WU: 03/17/2018 Secondary GAIL A [place] Insurance:CHEMO PAJAKDOB: [facility] [id number] Hospital Number: 0Effective Repository Date:2017-07-09 03/17/2018 Tertiary NOT GIVENUNK [place] Insurance:SELF PAY [facility] Number: Effective Repository Date:2018-03-17 03/15/2018 GAIL Ortega Primary LIANNA [place] [id number] N Insurance:ANTHEMPolicy MENNERDOB: Community BEVER Number: [id number] [place] [id number] Repository 22419Gys: (330) Date:0843-13-22En [address] [phone] () [address] [place] [address] 10488EQ: 03/15/2018 Secondary NOT GIVENUNK [place] Insurance:SELF PAY [facility] Hospital Number: Effective Repository Date:2018-02-15 03/15/2018 GAIL Ortega Primary LIANNA [place] [id number] N Insurance:ANTHEMPolicy MENNERDOB: [facility] BEVER Number: [id number] [place] [id number] Repository 14958Zzm: (330) Date:1100-33-12Xi [address] [phone] () [address] [place] [address] 27116DU: 03/15/2018 Secondary NOT GIVENUNK [place] Insurance:SELF PAY [facility] Hospital Number: Effective Repository Date:2018-03-15 03/07/2018 GAIL Ortega Primary LIANNA [place] [id number] N Insurance:ANTHEMPolicy MENNERDOB: [facility] BEVER Number: [id number] [place] [id number] Repository 11536Bdi: (330) Date:1154-01-03Bp [address] [phone] () MATHEW Willard [address]TN: 03/07/2018 Secondary NOT GIVENUNK [place] Insurance:SELF PAY [facility] Number: Effective Repository Date:2018-01-27 03/07/2018 GAIL Ortega Primary LIANNA [place] [id number] N Insurance:ANTHEMPolicy MENNERDOB: Community BEVER Number: [id number] [place] [id number] Repository 36178Bqx: (330) Date:8513-72-60Xn [address] [phone] () MATHEW Willard [address]JH: 03/07/2018 Secondary NOT GIVENUNK [place] Insurance:SELF PAY [facility] Number: Effective Repository Date:2018-03-07 03/01/2018 GAIL Ortega Primary LIANNA [place] [id number] N Insurance:ANTHEMPolicy MENNERDOB: Community BEVER Number: [id number] [place] [id number] Repository 84902Lqi: (330) Date:7083-84-62Qh [address] [phone] () MATHEW Willard [address]CW: 03/01/2018 Secondary NOT GIVENUNK [place] Insurance:SELF PAY [facility] Hospital Number: Effective Repository Date:2018-02-25 02/28/2018 GAIL Ortega Primary LIANNA [place] [id number] N Insurance:ANTHEMPolicy MENNERDOB: Community BEVER Number: [id number] [id number] Repository 03252Bbd: (330) Date:4429-37-10Kh [phone] () MATHEW Willard [address]497MR: 02/28/2018 Secondary NOT GIVENUNK [place] Insurance:SELF PAY [facility] Number: Effective Repository Date:2018-01-26 02/28/2018 GAIL Ortega Primary LIANNA [place] [id number] N Insurance:ANTHEMPolicy MENNERDOB: Community BEVER Number: [id number] [place], [place] [id number] Repository 91610Cdg: (330) Date:5959-06-52Cf [phone] () [address] [place] [address] 34372YQ: 02/28/2018 Secondary GAIL Ortega [place] Insurance:CHEMO PAJAKDOB: [facility] [id number] Hospital Number: 0Effective Repository Date:2017-07-09 02/28/2018 Tertiary NOT GIVENUNK [place] Insurance:SELF PAY [facility] Number: Effective Repository Date:2018-02-28 02/28/2018 GAIL Ortega Primary LIANNA [place] [id number] N Insurance:ANTHEMPolicy MENNERDOB: Community BEVER Number: [id number] [place] [id number] Repository 94211Cet: (330) Date:5874-65-26Ky [phone] () [address] [place] [address] 63275IR: 02/28/2018 Secondary NOT GIVENUNK [place] Insurance:SELF PAY [facility] Number: Effective Repository Date:2018-02-28 02/21/2018 GAIL Ortega Primary LIANNA Rosa [id number] N Insurance:ANTHEMPolicy MENNERDOB: Community BEVER Number: [id number] [place], [place] [id number] Repository 49046Gvb: (330) Date:4598-75-28Cq [phone] () [address] [place] [address] 03806TR: 02/21/2018 Secondary NOT GIVENUNK [place] Insurance:SELF PAY [facility] Hospital Number: Effective Repository Date:2018-02-21 02/15/2018 GAIL Ortega Primary LIANNA [place] [id number] N Insurance:ANTHEMPolicy MENNERDOB: Community BEVER Number: [id number] [place], [place] [id number] Repository 69896Ruu: (330) Date:9525-73-92Wq [address] [phone] () 881297Obnavbu, [place] [address]XV: 02/15/2018 Secondary NOT GIVENUNK [place] Insurance:SELF PAY [facility] Number: Effective Repository Date:2018-02-15 02/14/2018 GAIL Ortega Primary LIANNA Rosa [id number] N Insurance:ANTHEMPolicy MENNERDOB: [facility] BEVER Number: [id number] Town, [place] [id number] Repository 95431Dqo: (330) Date:3500-67-32Ns [address] [phone] () 923721Owhvhgk [place] [address]IW: 02/14/2018 Secondary NOT GIVENUNK [place] Insurance:SELF PAY [facility] Number: Effective Repository Date:2018-02-14 02/07/2018 GAIL Ortega Primary LIANNA [place] [id number] N Insurance:ANTHEMPolicy MENNERDOB: [facility] BEVER Number: [id number] [place], [place] [id number] Repository 94580Xsr: 330) Date:0880-44-77Fm [phone] () 767309Zymgapa [place] [address]AM: 02/07/2018 Secondary NOT GIVENUNK Rosa Insurance:SELF PAY [facility] Number: Effective Repository Date:2018-02-07 02/02/2018 GAIL Primary Insurance:BLUE LIANNA R [facility] AMAURYKDOB: [facility]: Health System N Number: [id number] [facility] [id number] [place] Date: [address]Caf: () 01/31/2018 GAIL Ortega Primary LIANNA Rosa [id number] N Insurance:ANTHEMPolicy MENNERDOB: [facility] BEVER Number: [id number] [place] [id number] Repository 31223Kmu: (330) Date:6713-49-58Hb [phone] () MATHEW Willard 22939CR: 01/31/2018 Secondary NOT GIVENUNK [place] Insurance:SELF PAY [facility] Number: Effective Repository Date:2018-01-31 01/31/2018 GAIL Ortega Primary LIANNA [place] [id number] N Insurance:ANTHEMPolicy MENNERDOB: Community BEVER Number: [id number] [place] [id number] Repository 28200Nae: (330) Date:9944-92-02Vs [phone] () MATHEW Willard 38311RT: 01/31/2018 Secondary NOT GIVENUNK [place] Insurance:SELF PAY [facility] Number: Effective Repository Date:2018-01-31 01/31/2018 GAIL Ortega Primary LIANNA Rosa [id number] N Insurance:ANTHEMPolicy MENNERDOB: Community BEVER Number: [id number] [place] [id number] Repository 10327Azm: (330) Date:4084-96-06Ow [address] [phone] () MATHEW Willard 09908DJ: 01/31/2018 Secondary NOT GIVENUNK [place] Insurance:SELF PAY [facility] Number: Effective Repository Date:2018-01-16 01/31/2018 GAIL Ortega Primary LIANNA [place] [id number] N Insurance:ANTHEMPolicy MENNERDOB: Community BEVER Number: [id number] [place] [id number] Repository 53130Cww: (330) Date:3956-33-26Zp [address] [phone] () MATHEW Willard 35420FU: 01/31/2018 Secondary NOT GIVENUNK [place] Insurance:SELF PAY [facility] Number: Effective Repository Date:2018-01-31 01/27/2018 GAIL Ortega Primary LIANNA [place] [id number] N Insurance:ANTHEMPolicy MENNERDOB: Community BEVER Number: [id number] [place] [id number] Repository 15669Bdr: (330) Date:6887-43-64Eb [phone] () [address] [place] [address] [place] [address]KR: 01/27/2018 Secondary NOT GIVENUNK [place] Insurance:SELF PAY [facility] Number: Effective Repository Date:2018-01-27 01/27/2018 GAIL A Primary LIANNA [place] [id number] N Insurance:ANTHEMPolicy MENNERDOB: Community BEVER Number: [id number] [id number] Repository 43262Fcq: (330) Date:8377-52-26Zi [address] [phone] () [address] [place] [address] [place] [address]60[address]TG: 01/27/2018 Secondary NOT GIVENUNK [place] Insurance:SELF PAY [facility] Number: Effective Repository Date:2018-01-27 01/26/2018 GAIL A Primary LIANNA [place] [id number] N Insurance:ANTHEMPolicy MENNERDOB: [facility] BEVER Number: [id number] [place], [place] [id number] Repository 85469Sbx: (330) Date:8976-62-49Ch [phone] () [id number] [place] [address] 94336AG: 01/26/2018 Secondary GAIL A [place] Insurance:CHEMO PAJAKDOB: [facility] [id number] Hospital Number: 0Effective Repository Date:2017-10-27 01/26/2018 Tertiary NOT GIVENUNK [place] Insurance:SELF PAY [facility] Number: Effective Repository Date:2017-10-27 01/24/2018 GAIL A Primary LIANNA [place] [id number] N Insurance:ANTHEMPolicy MENNERDOB: [facility] BEVER Number: [id number] [place] [id number] Repository 26837Gun: (330) Date:1592-78-30Ep [address] [phone] () MATHEW Willard 85209LH: 01/24/2018 Secondary NOT GIVENUNK [place] Insurance:SELF PAY [facility] Number: Effective Repository Date:2018-01-24 01/24/2018 GAIL Ortega Primary LIANNA [place] [id number] N Insurance:ANTHEMPolicy MENNERDOB: Community BEVER Number: [id number] [place] [id number] Repository 33690Jfa: (330) Date:6004-27-52Ub [address] [phone] () 428573OvmzferMATHEW Montelongo [address]UN: 01/24/2018 Secondary NOT GIVENUNK [place] Insurance:SELF PAY [facility] Number: Effective Repository Date:2018-01-24 01/13/2018 GAIL Ortega Primary LIANNA [place] [id number] N Insurance:ANTHEMPolicy MENNERDOB: Community BEVER Number: [id number] [place] [id number] Repository 00928Ybr: (330) Date:7937-36-73Oo [address] [phone] () MATHEW Willard 20082PG: 01/13/2018 Secondary NOT GIVENUNK [place] Insurance:SELF PAY [facility] Number: Effective Repository Date:2018-01-13 01/13/2018 GAIL Ortega Primary LIANNA [place] [id number] N Insurance:ANTHEMPolicy MENNERDOB: Community BEVER Number: [id number] [place] [id number] Repository 23157Ifw: (330) Date:2554-88-55Qs Box [phone] () MATHEW Willard 64422QH: 01/13/2018 Secondary NOT GIVENUNK [place] Insurance:SELF PAY [facility] Number: Effective Repository Date:2018-01-13 01/13/2018 GAIL Ortega Primary LIANNA [place] [id number] N Insurance:ANTHEMPolicy MENNERDOB: Community BEVER Number: [id number] [place] [id number] Repository 35285Aej: (330) Date:7095-85-92Ss [address] [phone] () 709234Qwjjylo, [place] [address]DF: 01/13/2018 Secondary NOT GIVENUNK [place] Insurance:SELF PAY [facility] Number: Effective Repository Date:2018-01-13 01/13/2018 GAIL Ortega Primary LIANNA [place] [id number] N Insurance:ANTHEMPolicy MENNERDOB: Community BEVER Number: [id number] [place] [id number] Repository 49224Pxa: (330) Date:2922-89-26Fe [address] [phone] () 055154Mxhwngw, [place] [address]PA: 01/13/2018 Secondary NOT GIVENUNK Rosa Insurance:SELF PAY [facility] Number: Effective Repository Date:2018-01-13 01/13/2018 GAIL Ortega Primary LIANNA [place] [id number] N Insurance:ANTHEMPolicy MENNERDOB: [facility] BEVER Number: [id number] [place] [id number] Repository 48594Qjo: (330) Date:7900-94-32Lt [address] [phone] () 357854Rswmfhq, [place] [address]KX: 01/13/2018 Secondary NOT GIVENUNK Rosa Insurance:SELF PAY [facility] Number: Effective Repository Date:2018-01-13 01/13/2018 GAIL Ortgea Primary LIANNA [place] [id number] N Insurance:ANTHEMPolicy MENNERDOB: Community BEVER Number: [id number] [id number] Repository 88528Sgc: (330) Date:1822-93-67Hc [address] [phone] () 977580Rmrdcmt, [place] [address]IW: 01/13/2018 Secondary NOT GIVENUNK [place] Insurance:SELF PAY [facility] Number: Effective Repository Date:2018-01-13 01/13/2018 GAIL Ortega Primary LIANNA [place] [id number] N Insurance:ANTHEMPolicy MENNERDOB: Community BEVER Number: [id number] [place], [place] [id number] Repository 49217Gvz: (330) Date:9067-94-48Om [address] [phone] () 419073Ttamsuc, [place] [address]FB: 01/13/2018 Secondary NOT GIVENUNK [place] Insurance:SELF PAY [facility] Number: Effective Repository Date:2018-01-13 01/13/2018 GAIL Ortega Primary LIANNA [place] [id number] N Insurance:ANTHEMPolicy MENNERDOB: [facility] BEVER Number: [id number] [place], [place] [id number] Repository 68685Pcm: (330) Date:1159-17-93Qn [address] [phone] () 446895Ythvbqi, [place] [address]KE: 01/13/2018 Secondary NOT GIVENUNK [place] Insurance:SELF PAY [facility] Number: Effective Repository Date:2018-01-13 01/13/2018 GAIL Ortega Primary LIANNA [place] [id number] N Insurance:ANTHEMPolicy MENNERDOB: [facility] BEVER Number: [id number] [id number] Repository 85350Djj: (330) Date:2586-29-71Mq Box [phone] () 219679Salhugj, [place] [address]TU: 01/13/2018 Secondary NOT GIVENUNK [place] Insurance:SELF PAY [facility] Number: Effective Repository Date:2018-01-13 01/10/2018 GAIL Ortega Primary LIANNA [place] [id number] N Insurance:ANTHEMPolicy MENNERDOB: [facility] BEVER Number: [id number] [id number] Repository 97326Mar: (330) Date:8957-56-94Ej [address] [phone] () 702757Rwsyknl [place] [address]GJ: 01/10/2018 Secondary GAIL A [place] Insurance:CHEMO PAJAKDOB: [facility] [id number] Hospital Number: Repository [id number] Date:2017-12-22 01/10/2018 Tertiary NOT GIVENUNK [place] Insurance:SELF PAY [facility] Number: Effective Repository Date:2017-12-22 01/10/2018 GAIL A Primary LIANNA [place] [id number] N Insurance:ANTHEMPolicy MENNERDOB: Community BEVER Number: [id number] [place] [id number] Repository 06632Zqm: (330) Date:9167-25-84Cd [address] [phone] () [address] [place] [address] 47414SI: 01/10/2018 Secondary NOT GIVENUNK [place] Insurance:SELF PAY [facility] Hospital Number: Effective Repository Date:2018-01-10 01/10/2018 GAIL A Primary LIANNA [place] [id number] N Insurance:ANTHEMPolicy MENNERDOB: Community BEVER Number: [id number] [place] [id number] Repository 06097Gie: (330) Date:6553-66-71Xd [address] [phone] () 510[address]Kvnlqov[address] [place] [address] 34582FR: 01/10/2018 Secondary NOT GIVENUNK [place] Insurance:SELF PAY [facility] Number: Effective Repository Date:2018-01-10 01/07/2018 GAIL A Primary LIANNA [place] [id number] N Insurance:ANTHEMPolicy MENNERDOB: Community BEVER Number: [id number] [place], [place] [id number] Repository 53599Txh: (330) Date:4143-92-00Mx Box [phone] () 959568Pdzqppi [place] [address]NB: 01/07/2018 Secondary GAIL A [place] Insurance:CHEMO PAJAKDOB: [facility] [place], [place] [id number] Hospital Number: 0Effective Repository Date:2018-01-07 01/07/2018 Tertiary NOT GIVENUNK [place] Insurance:SELF PAY [facility] Number: Effective Repository Date:2018-01-07 01/04/2018 GAIL A Primary LIANNA [place] [id number] N Insurance:ANTHEMPolicy MENNERDOB: [facility] BEVER Number: [id number] [place] [id number] Repository 24495Qrg: (330) Date:9416-27-11Rj [address] [phone] () [address]Qguobkh[address] [place] [address] 00740KZ: 01/04/2018 Secondary GAIL A [place] Insurance:CHEMO PAJAKDOB: [facility] [place], [place] [id number] Hospital Number: 0Effective Repository Date:2017-12-23 01/04/2018 Tertiary NOT GIVENUNK [place] Insurance:SELF PAY [facility] Hospital Number: Effective Repository Date:2017-12-23 01/03/2018 GAIL A Primary LIANNA Rosa [id number] N Insurance:ANTHEMPolicy MENNERDOB: [facility] BEVER Number: [id number] [place], [place] [id number] Repository 82250Hsp: (330) Date:5223-45-47Wr [address] [phone] () 287129Cpdpxch, [place] [address]LR: 01/03/2018 Secondary GAIL A [place] Insurance:CHEMO PAJAKDOB: [facility] [place], [place] [id number] Hospital Number: Repository [id number] Date:2018-01-03 01/03/2018 Tertiary NOT GIVENUNK [place] Insurance:SELF PAY [facility] Hospital Number: Effective Repository Date:2018-01-03 01/03/2018 GAIL A Primary LIANNA [place] [id number] N Insurance:ANTHEMPolicy MENNERDOB: Community BEVER Number: [id number] [place] [id number] Repository 14185Slj: (330) Date:1530-87-42Ff Box [phone] () [address] [place] [address] 16250QX: 01/03/2018 Secondary GAIL A [place] Insurance:CHEMO PAJAKDOB: [facility] [id number] Hospital Number: Repository [id number] Date:2018-01-03 01/03/2018 Tertiary NOT GIVENUNK [place] Insurance:SELF PAY [facility] Number: Effective Repository Date:2018-01-03 01/03/2018 GAIL A Primary LIANNA [place] [id number] N Insurance:ANTHEMPolicy MENNERDOB: Community BEVER Number: [id number] [place] [id number] Repository 32609Qfu: (330) Date:0285-18-63Ud Box [phone] () [address] [place] [address] 04387EP: 01/03/2018 Secondary NOT GIVENUNK [place] Insurance:SELF PAY [facility] Hospital Number: Effective Repository Date:2018-01-03 01/03/2018 GAIL A Primary LIANNA Rosa [id number] N Insurance:ANTHEMPolicy MENNERDOB: Community BEVER Number: [id number] [id number] Repository 38691Emd: (330) Date:9197-74-49Go [address] [phone] () [address] [place] [address] 65968NR: 01/03/2018 Secondary GAIL A [place] Insurance:CHEMO PAJAKDOB: [facility] [place], [place] [id number] Hospital Number: Repository [id number] Date:2018-01-03 01/03/2018 Tertiary NOT GIVENUNK [place] Insurance:SELF PAY [facility] Hospital Number: Effective Repository Date:2018-01-03 12/30/2017 GAIL A Primary LIANNA Rosa [id number] N Insurance:ANTHEMPolicy MENNERDOB: Community BEVER Number: [id number] [place] [id number] Repository 05612Ukh: 330) Date:6169-65-54Op [address] [phone] () [id number] [place] [address] 57395XS: 12/30/2017 Secondary GAIL A [place] Insurance:CHEMO PAJAKDOB: [facility] [id number] Hospital Number: 0Effective Repository Date:2017-12-09 12/30/2017 Tertiary NOT GIVENUNK [place] Insurance:SELF PAY [facility] Number: Effective Repository Date:2017-12-09 12/27/2017 GAIL A Primary LIANNA Rosa [id number] N Insurance:ANTHEMPolicy MENNERDOB: Community BEVER Number: [id number] [place] [id number] Repository 04175Ysk: (330) Date:9833-65-20Do [address] [phone] () 9[address]Boorgdv[address] [place] [address] 89662JA: 12/27/2017 Secondary NOT GIVENUNK [place] Insurance:SELF PAY [facility] Number: Effective Repository Date:2017-12-27 12/24/2017 GAIL A Primary LIANNA [place] [id number] N Insurance:ANTHEMPolicy MENNERDOB: Community BEVER Number: [id number] [place] [id number] Repository 92295Has: (330) Date:3708-40-19Qf Box [phone] () 485394Khsackc, [place] [address]PA: 12/24/2017 Secondary GAIL A Rosa Insurance:CHEMO PAJAKDOB: [facility] [id number] Hospital Number: 0Effective Repository Date:2017-12-24 12/24/2017 Tertiary NOT GIVENUNK [place] Insurance:SELF PAY [facility] Number: Effective Repository Date:2017-12-24 12/23/2017 GAIL A Primary LIANNA [place] [id number] N Insurance:ANTHEMPolicy MENNERDOB: Community BEVER Number: [id number] [place], [place] [id number] Repository 74868Tdi: 330) Date:2348-41-62Fn Box [phone] () 34[address]jp[address]cf[address] [place] [address] 62547MZ: 12/23/2017 Secondary NOT GIVENUNK [place] Insurance:SELF PAY [facility] Number: Effective Repository Date:2017-12-22 12/23/2017 GAIL A Primary LIANNA Rosa [id number] N Insurance:ANTHEMPolicy MENNERDOB: Community BEVER Number: [id number] [place] [id number] Repository 01061Clb: (330) Date:0491-23-04Pp [address] [phone] () 018083Xxaovip, [place] [address]PA: 12/23/2017 Secondary GAIL A Rosa Insurance:CHEMO PAJAKDOB: [facility] [id number] Hospital Number: 0Effective Repository Date:2017-12-06 12/23/2017 Tertiary NOT GIVENUNK [place] Insurance:SELF PAY [facility] Number: Effective Repository Date:2017-12-06 12/23/2017 GAIL A Primary LIANNA [place] [id number] N Insurance:ANTHEMPolicy MENNERDOB: Community BEVER Number: [id number] [place], [place] [id number] Repository 88584Jxf: (330) Date:0699-95-98Ik Box [phone] () 956130Emdugxk, [place] [address]CX: 12/23/2017 Secondary GAIL A Rosa Insurance:CHEMO PAJAKDOB: [facility] [id number] Hospital Number: 0Effective Repository Date:2017-12-06 12/23/2017 Tertiary NOT GIVENUNK [place] Insurance:SELF PAY [facility] Number: Effective Repository Date:2017-12-23 12/22/2017 GAIL A Primary LIANNA [place] [id number] N Insurance:ANTHEMPolicy MENNERDOB: Community BEVER Number: [id number] [place] [id number] Repository 32430Evr: 330) Date:6857-61-36Gb Box [phone] () 432716Ddpeyul, [place] [address]NI: 12/22/2017 Secondary NOT GIVENUNK [place] Insurance:SELF PAY [facility] Number: Effective Repository Date:2017-12-10 12/21/2017 GAIL Primary Insurance:BLUE LIANNA R [facility] PAJAKDOB: [facility] N Number: [id number] Repository [facility] [id number] [place], [place] Date: [address]Gwt: () 12/10/2017 GAIL A Primary LIANNA [place] [id number] N Insurance:ANTHEMPolicy MENNERDOB: [facility] BEVER Number: [id number] [place] [id number] Repository 57758Cga: (330) Date:0491-77-35Bo [address] [phone] () [address] [place] [address] 95003TP: 12/10/2017 Secondary GAIL A [place] Insurance:CHEMO PAJAKDOB: [facility] [id number] Hospital Number: 0Effective Repository Date:2017-12-07 12/10/2017 Tertiary NOT GIVENUNK [place] Insurance:SELF PAY [facility] Number: Effective Repository Date:2017-12-07 12/09/2017 GAIL A Primary LIANNA Rosa [id number] N Insurance:ANTHEMPolicy MENNERDOB: Community BEVER Number: [id number] [place] [id number] Repository 46378Gaw: 330) Date:2516-93-86Rb Box [phone] () 747268Ywflrwc, [place] [address]ZO: 12/09/2017 Secondary NOT GIVENUNK [place] Insurance:SELF PAY [facility] Number: Effective Repository Date:2017-11-22 12/09/2017 GAIL A Primary LIANNA [place] [id number] N Insurance:ANTHEMPolicy MENNERDOB: Community BEVER Number: [id number] [place] [id number] Repository 99735Smr: (330) Date:9346-97-93Gl Box [phone] () MATHEW Willard [address]6096ZO: 12/09/2017 Secondary NOT GIVENUNK [place] Insurance:SELF PAY [facility] Number: Effective Repository Date:2017-12-09 12/06/2017 GAIL Ortega Primary LIANNA Rosa [id number] N Insurance:ANTHEMPolicy MENNERDOB: Community BEVER Number: [id number] [place], [place] [id number] Repository 91323Ixz: (330) Date:8320-84-76Ez Box [phone] () MATHEW Willard 74233HA: 12/06/2017 Secondary NOT GIVENUNK [place] Insurance:SELF PAY [facility] Number: Effective Repository Date:2017-12-06 11/15/2017 GAIL Ortega Primary LIANNA [place] [id number] N Insurance:ANTHEMPolicy MENNERDOB: Community BEVER Number: [id number] [place] [id number] Repository 45350Zne: (330) Date:5207-92-64Nd Box [phone] () 713701Qaooeow, [place] [address]CI: 11/15/2017 Secondary NOT GIVENUNK [place] Insurance:SELF PAY [facility] Number: Effective Repository Date:2017-11-15 11/11/2017 GAIL Ortega Primary LIANNA Rosa [id number] N Insurance:ANTHEMPolicy MENNERDOB: Community BEVER Number: [id number] [place] [id number] Repository 56723Ihw: (330) Date:9468-70-25Kc Box [phone] () 668177Xbzwavg, [place] [address]CM: 11/11/2017 Secondary NOT GIVENUNK [place] Insurance:SELF PAY [facility] Hospital Number: Effective Repository Date:2017-11-11 11/05/2017 GAIL Ortega Primary LIANNA [place] [id number] N Insurance:ANTHEMPolicy MENNERDOB: Community BEVER Number: [id number] [place], [place] [id number] Repository 45205Cke: (330) Date:8537-71-00Be Box [phone] () 370872Zpwxrjm, [place] [address]ZL: 11/05/2017 Secondary NOT GIVENUNK [place] Insurance:SELF PAY [facility] Number: Effective Repository Date:2017-11-05 11/03/2017 GAIL Ortega Primary LIANNA Rosa [id number] N Insurance:ANTHEMPolicy MENNERDOB: [facility] BEVER Number: [id number] [place] [id number] Repository 89593Qxc: (330) Date:5152-61-57Iu Box [phone] () MATHEW Willard [id number]: 11/03/2017 Secondary NOT GIVENUNK Rosa Insurance:SELF PAY [facility] Number: Effective Repository Date:2017-11-03 11/01/2017 GAIL Ortega Primary LIANNA Rosa [id number] Insurance:ANTHEMPolicy MENNERDOB: [facility] BEVER Number: [id number], [place] [id number] Repository [address]Xdu: ([phone]) Date:[id number] [phone] () MATHEW Willard [id number]: 11/01/2017 Secondary NOT GIVENUNK Rosa Insurance:SELF PAY [facility] Number: Effective Repository Date:2017-11-01 10/27/2017 GAIL Ortega Primary LIANNA [place] [id number] Insurance:ANTHEMPolicy MENNERDOB: [facility] Number: [id number], [place] [id number] Repository [address]Cam: ([phone]) Date:[id number] [phone] () MATHEW Willard [id number]: 10/27/2017 Secondary NOT GIVENUNK [place] Insurance:SELF PAY [facility] [facility] Effective Rep[facility] Date:2017-10-07 10/27/2017 GAIL Ortega Primary LIANNA Rosa [id number] N Insurance:ANTHEMPolicy MENNERDOB: Community BEVER [place]: [id number] [id number] Repository [address]Wvg: (330) Date:1116-01-48Xv [phone] () [id number], [place] [address]RB: 10/27/2017 Secondary NOT GIVENUNK Rosa Insurance:SELF PAY [facility] Number: Effective Repository Date:2017-10-27 10/25/2017 GAIL Ortega Primary LIANNA Rosa [id number] N Insurance:ANTHEMPolicy MENNERDOB: [facility] BEVER Number: [id number] [place], [place] [id number] Repository [address]Pjv: (330) Date:7589-45-22Kz [phone] () [id number], [place] [address]JX: 10/25/2017 Secondary NOT GIVENUNK [place] Insurance:SELF PAY [facility] Number: Effective Repository Date:2017-10-25 10/21/2017 GAIL Ortega Primary LIANNA Rosa [id number] N Insurance:ANTHEMPolicy MENNERDOB: [facility] BEVER Number: [id number], [place] [id number] Repository [address]Xcw: (330) Date:3098-00-58Bt [phone] () [id number], [place] [address]FI: 10/21/2017 Secondary NOT GIVENUNK Rosa Insurance:SELF PAY [facility] Number: Effective Repository Date:2017-10-21 10/13/2017 GAIL Ortega Primary LIANNA [place] [id number] N Insurance:ANTHEMPolicy MENNERDOB: [facility] BEVER Number: [id number] [place], [place] [id number] Repository [address]Ecn: (330) Date:2639-83-43Qs [phone] () [address] [place] [address] [place] [address]TW: 10/13/2017 Secondary NOT GIVENUNK [place] Insurance:SELF PAY [facility] Effective Repository Date:2017-10-13 10/13/2017 GAIL A Primary LIANNA [place] [id number] N Insurance:ANTHEMPolicy MENNERDOB: Community BEVER Number: [id number] [place], [place] [id number] Repository [address]Owy: (330) Date:6686-89-72Vo [phone] () [address] [place] [address] [place] [address]JP: 10/13/2017 Secondary GAIL A [place] Insurance:CHEMO PAJAKDOB: [facility] [id number] Hospital Number: 0Effective Repository Date:2018-04-15 10/13/2017 Tertiary NOT GIVENUNK [place] Insurance:SELF PAY [facility] Number: Effective Repository Date:2017-10-13 10/12/2017 GAIL A Primary LIANNA Rosa [id number] N Insurance:ANTHEMPolicy MENNERDOB: [facility] BEVER Number: [id number] [place], [place] [id number] Repository [address]Ptc: (330) Date:3220-70-75Um [phone] () [id number] [address]HL: 10/12/2017 Secondary GAIL A [place] Insurance:CHEMO PAJAKDOB: [facility] [id number] Hospital Number: 0Effective Repository Date:2017-07-09 10/12/2017 Tertiary NOT GIVENUNK [place] Insurance:SELF PAY [facility] Number: Effective Repository Date:2017-10-12 10/08/2017 GAIL A Primary LIANNA [place] [id number] N Insurance:ANTHEMPolicy MENNERDOB: [facility] BEVER Number: [id number] [place], [place] [id number] Repository [address]Ryq: (330) Date:1507-19-62Jb [phone] () [id number], [place] [address]NB: 10/08/2017 Secondary NOT GIVENUNK [place] Insurance:SELF PAY [facility] Effective Repository Date:2017-10-08 10/06/2017 GAIL A Primary LIANNA Rosa [id number] N Insurance:ANTHEMPolicy MENNERDOB: Community BEVER Number: [id number] [place], [place] [id number] Repository [address]Cyz: (330) Date:5713-79-56Is [phone] () [id number], [place] [address]DG: 10/06/2017 Secondary GAIL A [place] Insurance:CHEMO PAJAKDOB: [facility] [id number] Hospital Number: 0Effective Repository Date:2017-10-05 10/06/2017 Tertiary NOT GIVENUNK [place] Insurance:SELF PAY [facility] Number: Effective Repository Date:2017-10-05 10/05/2017 GAIL A Primary LIANNA Rosa [id number] N Insurance:ANTHEMPolicy MENNERDOB: Community BEVER Number: [id number] [place], [place] [id number] Repository [address]Joo: (330) Date:1595-35-91Vy [phone] () [id number], [place] [address]AC: 10/05/2017 Secondary GAIL A [place] Insurance:CHEMO PAJAKDOB: Community ASSISTANCEPolicy [id number] Hospital Number: 0Effective Repository Date:2017-07-09 10/05/2017 Tertiary NOT GIVENUNK [place] Insurance:SELF PAY [facility] Number: Effective Repository Date:2017-10-05
== END 2018-09-14 22:21 | disposition home or self-care (01) ==
LOC: ED 21:03
PROVIDERS: Emergency Provider Emergency Medicine; Family Provider Family Medicine; PCP Family Medicine
DX: G47.411 Narcolepsy with cataplexy (principal); F41.9 Anxiety disorder, unspecified; R07.89 Other chest pain; G47.30 Sleep apnea, unspecified; E03.9 Hypothyroidism, unspecified; Z79.899 Other long term (current) drug therapy
CPT/HCPCS: 36591; 80048; 85025; 85379; 96360; 99285; J7030; A4216

== ENCOUNTER → 2018-09-26 12:52 | Outpatient (CLI) | payer BC, SELFPAY ==
[2017-09-29 13:07] VITALS: BMI 36.4
[2018-09-12 11:43] VITALS: BMI 36.4
[2018-09-14 20:29] VITALS: BMI 33.6
--- NOTE | 2018-09-26 12:57 | ECHODONC_ITS ---
Version 2 Reason For Study: High risk meds, post chemo Procedure This was a 2D Doppler, Color Flow transthoracic echocardiogram. Exam performed in department. Left Ventricle Normal LV size. Left ventricular systolic function is normal. The global longitudinal strain = -21.6 % (normal). The estimated ejection fraction is 65 %. No regional wall motion abnormalities noted. Right Ventricle Normal RV size. Normal systolic function. Atria Normal left atrium. Normal right atrium. Mitral Valve Normal mitral valve. Tricuspid Valve Normal tricuspid valve. Aortic Valve Normal aortic valve. Trisinus/trileaflet aortic valve. Pulmonic Valve Normal pulmonic valve. Great Vessels Normal aortic root. The pulmonary artery is normal size. Normal inferior vena cava. Pericardium/Pleural No pericardial effusion. MMode/2D Measurements & Calculations LVIDd: 4.3 cm IVSd: 0.81 cm Ao root diam: 2.7 cm LVIDs: 3.1 cm LVPWd: 0.83 cm RVDd: 3.1 cm FS: 28.4 % LAV(MOD-bp): 36.5 ml EDV(MOD-sp4): 87.2 ml EDV(MOD-sp2): 79.9 ml LAV(MOD-bp) Indexed: 17.5 ml/m2 ESV(MOD-sp4): 33.3 ml EF(MOD-sp2): 64.3 % LAV(MOD-sp2): 42.9 ml EF(MOD-sp4): 61.9 % LAV(MOD-sp4): 29.0 ml SV(MOD-sp4): 54.0 ml SV(MOD-sp2): 51.4 ml LA A4 area: 12.6 cm2 LA dimension(2D): 3.0 cm RA A4 area: 10.1 cm2 Doppler Measurements & Calculations MV E max oni: 91.0 cm/sec Lat Peak E' Oni: 16.5 cm/sec Med Peak E' Oni: 13.0 cm/sec MV A max oni: 72.2 cm/sec E/E' lat: 5.5 E/E' med: 7.0 MV E/A: 1.3 Ao V2 max: 159.7 cm/sec LV V1 max: 114.3 cm/sec PA V2 max: 100.8 cm/sec Ao max P.2 mmHg LV V1 max P.2 mmHg Interpretation Summary Normal LV size. Left ventricular systolic function is normal. The global longitudinal strain = -21.6 % (normal). The estimated ejection fraction is 65 %. Structurally normal valves. Compared to previous study, the left ventricular systolic function is the same.. Ordering Physician: Owen Edouard Referring Physician: Rhett Elias Performed By: Daphne, Gaye, RDCS
== END ==
PROVIDERS: Family Provider Family Medicine; PCP Family Medicine; Referring Provider Internal Medicine Hematology & Oncology; Visit Provider Internal Medicine Hematology & Oncology
DX: Z79.899 Other long term (current) drug therapy (principal); Z92.21 Personal history of antineoplastic chemotherapy; Z98.890 Other specified postprocedural states
CPT/HCPCS: 0399T; 93306

== ENCOUNTER 2018-09-27 06:43 | Day surgery (SDC) | payer BC, SELFPAY ==
[2017-09-29 13:07] VITALS: BMI 36.4
[2018-09-12 11:43] VITALS: BMI 36.4
--- NOTE | 2018-09-26 23:50 | PCM.HP.BLA ---
History and Physical Date of Admission: 09/27/18 HISTORY OF PRESENT ILLNESS 33 year old woman presents with left breast cancer that necessitated initially a lumpectomy and then later on a completion mastectomy. She had chemotherapy and radiation therapy postop. The completion mastectomy was not closed because it had already been radiated. Healing was slow with Silver dressing changes and the VAC and antibiotics. The wound almost healed but there remained a smaller residual wound. The wound had been improving with decreased size, but she was having persistent pain in her left mastectomy wound. At the time of her completion mastectomy, wound cultures were obtained. They showed Acinetobacter radioresistens and MRSE. She was treated with IV Ceftriaxone and tolerated the antibiotics. On 06/24/18 she underwent revision reconstructed left breast with excision painful nonhealing radiation ulcer and excision painful excess mastectomy skin scar contour deformity. She had no issues with healing initially. However she developed persistent pain in her mastectomy scar medially secondary to her radiation scar contour deformity. The pain is exacerbated with activity. She presents today for further revision of her reconstructed left breast. 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 Pneumonia STEVE Chronic back pain Nonhealing post-lumpectomy seroma ulcer left lateral breast Chemotherapy induced neutropenia PAST SURGICAL HISTORY: [place] teeth 2003 all 4 [place]art 2008 Partial Mastectomy 04/06/17 - getting chemotherapy and will follow with radiation therapy Port Placement 05/03 Hospital-Febrile Neutropenia discharged 07/14/17 Occasional psychiatric hospitalized [id number] surgical preparation left lateral breast with incision and drainage and excision nonhealing post-lumpectomy seroma ulcer with 9 cm complex secondary wound closure - 08/05/17 Revision left breast reconstruction with excision painful infected lateral radiation lumpectomy scar contour deformity with completion mastectomy - 01/04/18 Revision reconstructed left breast with excision painful nonhealing radiation ulcer and excision painful excess mastectomy skin scar contour deformity - 06/24/18 MEDICATIONS Ventolin. Levothyroxine. Liothyronine. ALLERGIES Dilaudid. Morphine. Tape. FAMILY HISTORY: Mother (biol.) - Has Family History of Depression Mother (biol.) - Has Family History of Thyroid Disorder Mother (biol.) - Has Family History of Psychiatric Care Father (biol.) - Has Family History of Hypertension Father (biol.) - Has Family History of High Cholesterol Aunt - Has Family History of Seizures PGM - Has Family History of Other Cancer PGF - Has Family History of Diabetes PGF - Has Family History of Heart Disease PGM - Has Family History of Colon Cancer SOCIAL HISTORY: Drug Use - no Patient is a former smoker. Patient does not drink alcohol. REVIEW OF SYSTEMS General - Denies fever. Has some weight loss and fatigue. Eyes -Denies: Pain HEENT - Denies: Nasal Congestion, Sore Throat Cardiovascular - Denies Chest Pain. Has fatigue. Denies shortness of breath with exertion. Respiratory - patient is a former smoker.. Denies: Cough, Shortness of Breath Gastrointestinal - Has Constipation, Diarrhea. Denies: Nausea, Vomiting Genitourinary - Denies: Frequency, Hematuria Musculoskeletal - Reports: Back Pain, - - has left lateral rib pain. Denies: Hand Pain, Leg Pain, Muscle pain, Neck Pain Skin - Has lumpectomy scar left lateral breast with pain. Pain also radiates laterally onto left lateral rib pain and axillary rib pain. Neuro - Has Headaches Psych - Has Anxiety, Depression Endocrine - Denies Polydipsia, Polyuria Hematologic - Denies Easy Bruising, Hx of blood clot PHYSICAL EXAMINATION General - Alert and oriented. Her bra size is D-DD. HEENT - PERRLA, EOMI Neck - Supple and nontender. No cervical adenopathy. Chest wall - There is tenderness to palpation in the left lateral chest wall over the ribs and extending onto the axillary area. No fluctuance or purulent drainage. Breasts - There is a left lateral breast scar from lumpectomy in 04/03. There is an indentation deformity. Very tender to palpation. The left breast is tender to palpation mostly laterally. No redness. Increased swelling and edema especially around the nipple areolar complex area. No fluctuance. The right breast is a little larger. Slight Stage II ptosis. Lungs - Clear to auscultation Heart - Regular rate, Regular Rhythm Abdomen - Soft, Non-Distended Extremities - No clubbing, No cyanosis, No edema, Peripheral Pulses Normal Lymphatic - no axillary adenopathy. Neuro - Cranial nerves II-XII grossly intact Psych - Normal Affect, Appropriate ASSESSMENT 1. Left breast cancer. 2. Disproportion reconstructed left breast. 3. 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 4. s/p lumpectomy left breast with chemotherapy and radiation therapy. 5. s/p completion mastectomy left breast. 6. Late effect radiation left breast. 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 She has persistent pain in the medial aspect left breast mastectomy scar contour deformity with associated painful radiation scar contour deformity. To improve her painful symptomatology, it was recommended to the patient to proceed with revision reconstructed left breast with excision painful radiation scar contour deformity and excess painful mastectomy skin scar contour deformity. Will send tissue to Pathology for analysis to rule out carcinoma. Will also send tissue to Microbiology for culture. A positive culture will necessitate antibiotic therapy. To minimize seroma formation postop, I will place a drain. I will also spray Pola absorbable hemostat into the ulcer to minimize seroma formation. After surgery, she would benefit from further HBO treatments. She will be maintained on antibiotics at least until the drains are removed. Will wear a compression TABITHA wrap on her chest wall to minimize seroma as well. Surgery will be done under general anesthesia with a surgical observation overnight stay in the hospital. Patient was informed of the risks and complications of the procedure including alternatives to surgery. These were discussed with the patient personally. Patient voices understanding and wishes to proceed.
[2018-09-27] VITALS (7 sets, daily range): BP systolic 128–148; BP diastolic 79–94; PULSE 66–102; RESP 16–18; TEMP 36.3–36.6; O2SAT 96–100; BMI 32.3
--- NOTE | 2018-09-27 | BRBX_PTH ---
PATIENT: VARINDER LACEY LOC: [facility] [place] U#:[id number] AGE/SX: 33/F ROOM: RE09/27/[address]: Dr. Jose Robertson MD : 1985 BED: DIS: 09/27/2018 SPEC #: [id number] RECD: 09/27/18 13:26 STATUS: REGGIE REEnrike #: [id number] GURU: 09/27/18 00:[address]: Jose Robertson DEPT: SURGICAL PATHOLOGY RECD BY: Ace De Luna ENTERED: 09/27/18 13:26 SP TYPE: BREAST BX OTHR DR: Dr. Rhett Eilas MD Tissues: Left breast, NOS Procedures: Surgery Specimen Level III HEADER OPERATION: Revision reconstructed breast with excision soft tissue PRE-OP DIAGNOSIS: Left breast cancer; disproportion reconstructed left breast; late effect radiation left breast TISSUE SUBMITTED: Left breast tissue MICROSCOPIC DIAGNOSIS Left breast tissue, revision reconstructed breast: Pieces of skin with underlying tissue, fibroadipose tissue and skeletal muscle tissue with focal fat necrosis, chronic inflammation and foreign body giant cell reaction. RO:sharon 09/29/18 MICROSCOPIC DESCRIPTION Slides are reviewed. GROSS DESCRIPTION Received in fixative is one container labeled with the patient's name and designated left breast tissue. The specimen consists of two pieces of skin with underlying tissue that in aggregate measure 15 x 7.5 cm and up to 4 cm in thickness. Also present in the container are multiple pieces of hernandez, indurated tissue that in aggregate measure 12 x 8 x 1 cm. The skin surface shows a healed scar. Sections do not reveal any mass lesion. Earth Mover sections are submitted in four cassettes. Cassette 1 also contains the skin piece. / RO:sharon 09/28/18 TC:5 CPT: 20665
[2018-09-27 07:14] LABS: Internal QC Validated? YES +Cl - CLEAR BKGD; Pregnancy, Urine Negative Negative
--- NOTE | 2018-09-27 09:58 | PCM.IMDPSTOP ---
Immediate Post-Op Note Date of Procedure: 09/27/18 Primary Surgeon/Physician: Jose Robertson oxygen therapy teacher: Basilia Andrew. Pre-Operative Diagnosis: 1. Left breast cancer. 2. Disproportion reconstructed left breast. 3. 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 4. s/p lumpectomy left breast with chemotherapy and radiation therapy. 5. s/p completion mastectomy left breast. 6. Late effect radiation left breast. Post-Operative Diagnosis: Same. Surgery/Procedure Performed:: Revision reconstructed left breast with excision painful soft tissue radionecrosis scar deformity and excision painful excess mastectomy skin scar contour deformity. Description of Surgical Findings:: 33 year old woman presents with left breast cancer that necessitated initially a lumpectomy and then later on a completion mastectomy. She had chemotherapy and radiation therapy postop. The completion mastectomy was not closed because it had already been radiated. Healing was slow with Silver dressing changes and the VAC and antibiotics. The wound almost healed but there remained a smaller residual wound. The wound had been improving with decreased size, but she was having persistent pain in her left mastectomy wound. At the time of her completion mastectomy, wound cultures were obtained. They showed Acinetobacter radioresistens and MRSE. She was treated with IV Ceftriaxone and tolerated the antibiotics. On 06/24/18 she underwent revision reconstructed left breast with excision painful nonhealing radiation ulcer and excision painful excess mastectomy skin scar contour deformity. She had no issues with healing initially. However she developed persistent pain in her mastectomy scar medially secondary to her radiation scar contour deformity. The pain is exacerbated with activity. Further revision breast reconstruction surgery was planned. Today the patient underwent revision reconstructed left breast with excision painful soft tissue radionecrosis scar deformity and excision painful excess mastectomy skin scar contour deformity. I used Pola absorbable hemostat, (I used 2 vials). Reference Number - [id number]. Lot Number - [id number]. Expiration - May 14, 2023. Estimated Blood Loss: 50 ml. Specimen's removed: Left breast tissue and radionecrosis scar tissue to Pathology and Microbiology. Drains: Ricki. Type of Anesthesia:: General - Admit VTE Documentation VTE Present on Admission: No VTE Mechan Device Prophylaxis: SCD's VTE Pharm Prophylaxis ordered?: No
--- NOTE | 2018-09-27 10:02 | OP.PN_ITS ---
Immediate Post-Op Note Date of Procedure: 09/27/18 Primary Surgeon/Physician: Jose Robertson mixing and dispensing supervisor: Basilia Andrew. Pre-Operative Diagnosis: 1. Left breast cancer. 2. Disproportion reconstructed left breast. 3. 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 4. s/p lumpectomy left breast with chemotherapy and radiation therapy. 5. s/p completion mastectomy left breast. 6. Late effect radiation left breast. Post-Operative Diagnosis: Same. Surgery/Procedure Performed:: Revision reconstructed left breast with excision painful soft tissue radionecrosis scar deformity and excision painful excess mastectomy skin scar contour deformity. Description of Surgical Findings:: 33 year old woman presents with left breast cancer that necessitated initially a lumpectomy and then later on a completion mastectomy. She had chemotherapy and radiation therapy postop. The completion mastectomy was not closed because it had already been radiated. Healing was slow with Silver dressing changes and the VAC and antibiotics. The wound almost healed but there remained a smaller residual wound. The wound had been improving with decreased size, but she was having persistent pain in her left mastectomy wound. At the time of her completion mastectomy, wound cultures were obtained. They showed Acinetobacter radioresistens and MRSE. She was treated with IV Ceftriaxone and tolerated the antibiotics. On 06/24/18 she underwent revision reconstructed left breast with excision painful nonhealing radiation ulcer and excision painful excess mastectomy skin scar contour deformity. She had no issues with healing initially. However she developed persistent pain in her mastectomy scar medially secondary to her radiation scar contour deformity. The pain is exacerbated with activity. Further revision breast reconstruction surgery was planned. Today the patient underwent revision reconstructed left breast with excision painful soft tissue radionecrosis scar deformity and excision painful excess mastectomy skin scar contour deformity. I used Pola absorbable hemostat, (I used 2 vials). Reference Number - [id number]. Lot Number - [id number]. Expiration - May 14, 2023. Estimated Blood Loss: 50 ml. Specimen's removed: Left breast tissue and radionecrosis scar tissue to Pathology and Microbiology. Drains: Ricki. Type of Anesthesia:: General - Admit VTE Documentation VTE Present on Admission: No VTE Mechan Device Prophylaxis: SCD's VTE Pharm Prophylaxis ordered?: No
--- NOTE | 2018-09-27 10:19 | DCINST_ITS ---
You will use the following diet at home:: No restrictions, Other - encourage nutritional supplementation with protein to help the healing process. Discharge Activity: May not drive while taking narcotic pain medications., May Not Shower - until the drain is removed., - - no heavy lifting. May shower in (days): 14 - after the drain is removed in the office. May resume sexual activity in: 10-14 days Weight Bearing Status: Weight bearing as tolerated Lifting Restrictions: 20 lbs. Keep extremity elevated above heart level: Left Arm Additional Activity Instructions:: may continue gentle range of motion exercises left shoulder to minimize stiffness. Call your doctor if your incision/area has: Continuous Slow Oozing, Sudden Increased Bleeding, Increased Pain/ Swelling, Increased Redness, Foul Smelling Discharge, Swelling at the incision site Call your doctor if you observe: Fever of 101 or Higher, Coldness, Increased Pain, Shortness of breath, Chest pain, Calf discomfort, Uncontrolled pain Suture Line Care: - - dry dressing daily. Change Dressing in (Days):: 2 - dry dressing daily. Cleanse incision/area with: - - may get incision wet in the shower after the drain is removed in the office. Drain: Suction - nataly drain to bulb suction. empty and record output daily. Allergies/Adverse Reactions: Allergies hydromorphone [From Dilaudid] Allergy (Severe, Verified 09/20/18 13:52) Laryngospasms morphine Allergy (Severe, Verified 09/20/18 13:52) chest tightening TAPE Adverse Reaction (Mild, Uncoded 09/12/18 09:04) Other Medications to take at Discharge armodafinil 50 mg tablet 50 mg PO QAM 08/26/18 Levothyroxine Sodium [Synthroid] 25 mcg PO MOTUWETHFRSA 09/12/18 Dextroamphetamine Sulfate [Dextroamphetamine Sulfate ER] 15 mg PO BID 09/14/18 Digestive 8/L.acidoph/Pectin [Digestive Enzymes Tablet] 1 each PO BID 09/20/18 Iron Polysaccharide Complex [Ferrex 150] 150 mg PO DAILYCM 09/20/18 L.acidoph,Paracasei, B.lactis [Probiotic] 1 each PO DAILY 09/20/18 Multivitamin [Multiple Vitamins] 1 each PO DAILY 09/20/18 Amox/Clavulanate Tablet [Augmentin Tablet] 875 mg PO BID #28 tab 09/27/18 Diazepam [Valium] 4 - 8 mg PO 4X/DAY PRN PRN #40 tab 09/27/18 Docusate Sodium [Colace] 100 mg PO BID #60 cap 09/27/18 Ondansetron [Zofran] 8 mg PO TID PRN PRN #30 tab 09/27/18 Oxycodone HCl/Acetaminophen [Percocet 5/325] 1 - 2 tab PO 4X/DAY PRN PRN 7 Days #50 tab 09/27/18 The following prescriptions were given: Diazepam [Valium] 4 - 8 mg PO 4X/DAY PRN PRN #40 tab PRN Reason: Spasms Ondansetron [Zofran] 8 mg PO TID PRN PRN #30 tab PRN Reason: Nausea Oxycodone HCl/Acetaminophen [Percocet 5/325] 1 - 2 tab PO 4X/DAY PRN PRN 7 Days #50 tab PRN Reason: Pain Amox/Clavulanate Tablet [Augmentin Tablet] 875 mg PO BID #28 tab Docusate Sodium [Colace] 100 mg PO BID #60 cap Primary Care Physician: Rhett Elias MD [Primary Care Provider] - Test Results: Test results from this visit will be discussed in further detail at your follow- up appointment, if applicable. Please Follow Up With: Jose Robertson MD When: one week. call [phone] for appt. Proposed Discharge Date: 09/27/18
--- NOTE | 2018-09-28 19:47 | OP.PCM_ITS ---
Report of Operation Date of Procedure: 09/27/18 Pre-Operative Diagnosis: 1. Left breast cancer. 2. Disproportion recons tructed left breast. 3. 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 4. s/p lumpectomy left breast with chemotherapy and radiation therapy. 5. s/p completion mastectomy left breast. 6. Late effect radiation left breast. Post-Operative Diagnosis: Same. Surgery/Procedure Performed:: Revision reconstructed left breast with excision painful soft tissue radionecrosis scar deformity and excision painful excess mastectomy skin scar contour deformity. Description of Surgical Findings:: 33 year old woman presents with left breast cancer that necessitated initially a lumpectomy and then later on a completion mastectomy. She had chemotherapy and radiation therapy postop. The completion mastectomy was not closed because it had already been radiated. Healing was slow with Silver dressing changes and the VAC and antibiotics. The wound almost healed but there remained a smaller residual wound. The wound had been improving with decreased size, but she was having persistent pain in her left mastectomy wound. At the time of her completion mastectomy, wound cultures were obtained. They showed Acinetobacter radioresistens and MRSE. She was treated with IV Ceftriaxone and tolerated the antibiotics. On 06/24/18 she underwent revision reconstructed left breast with excision painful nonhealing radiation ulcer and excision painful excess mastectomy skin scar contour deformity. She had no issues with healing initially. However she developed persistent pain in her mastectomy scar medially secondary to her radiation scar contour deformity. The pain is exacerbated with activity. Further revision breast reconstruction surgery was planned. Patient was informed of the risks and complications of the procedure including alternatives to surgery. These were discussed with the patient personally. Patient voices understanding and wishes to proceed. Some of the risks and complications were included in a form from the [employer]. I used Pola absorbable hemostat, (I used 2 vials). Reference Number - [id number]. Lot Number - [id number]. Expiration - May 14, 2023. bowstring maker: Basilia Andrew. Type of Anesthesia:: General Specimen's removed: Left breast tissue and radionecrosis scar tissue to Pathology and Microbiology. Drains: Ricki. Estimated Blood Loss (mL): 50 ml. Description of Procedure: Patient was seen in the preop area. She was placed in sitting position and m arkings were made. I wanted to have her lift her left arm up as I decided how much skin to excise. Most of the excess skin and painful symptomatology is in the medial aspect. A lesser amount is seen laterally. Patient was taken to OR in supine position and was placed under general anesthesia. The left breast was prepped and draped in the usual fashion. SCD's were placed for DVT prophylaxis. Perioperative antibiotics were given intravenously. Using xylocaine with epinephrine, the left breast was infiltrated. After waiting 5 minutes for the anesthetic to take effect, I excised the firm indurated area of soft tissue radionecrosis and excess painful mastectomy skin scar contour deformity medially and to a lesser extent in the lateral aspect by the axilla. The dissection was carried down through the subcutaneous tissue until the underlying muscle was seen. There was a lot of dense fibrotic scar tissue on the muscle which was excised to help with postop symptomatic relief. The extra bruising on the muscle from the excision of this dense fibrotic scar tissue will lead to extra muscle spasm in the initial postop period. I will stress to the patient the importance of taking her Valium to help with the anticipated muscle spasm. The tissue that was excised will be sent to Pathology for analysis to rule out carcinoma. Some of the tissue was sent to Microbiology for culture. A positive culture will necessitate antibiotic therapy. Hemostasis was obtained with electrocautery. The wound was irrigated with saline. The breast tissue was soft after aggressively excising the firm indurated soft tissue radionecrosis. A size 15 Ricki drain was placed through separate stab incision inferiorly and laterally and secured to the skin with 3-0 Nylon interrupted suture. I then sprayed Pola absorbable hemostat into the left breast mastectomy wound to minimize seroma postoperatively. I used 2 vials of Pola. I then closed the left breast mastectomy wound with 2-0 Vicryl figure of eight interrupted suture for the deep subcutaneous tissue and fascia. The deep dermis and subcutaneous tissue was approximated with 3-0 Monocryl interrupted sutures. The skin was approximated with 3-0 V-lock unidirectional barbed running subcuticular suture. This was followed by Histoacryl skin tissue adhesive followed by Kerlix gauze and ABD pads compression dressing. This was followed by a compression TABITHA wrap. Patient tolerated the procedure well and was sent to PACU in satisfactory condition. Patient will be sent home on antibiotics and pain medication. Patient will followup in a week for a wound check and for discussion of the pathology report and for discussion of the microbiology report. A positive culture may necessitate antibiotic modification. The drain will be removed in 2 weeks. Grafts/Implants Used: None. - Complications None. - Admit VTE Documentation VTE Present on Admission: No VTE Mechan Device Prophylaxis: SCD's VTE Pharm Prophylaxis ordered?: No Code Visit Surgery Charges CPT - 56897 ICD-10 - C50.912, N65.1, N65.0, T66.xxxS, Z90.12, N64.4
--- OUTSIDE RECORDS SUMMARY | 2018-11-13 05:18 | XMS RPT_ITS ---
:1985 Author Organization OHIP Support Name Relationship Address Phone JOCELYNE BETANCOURTOMY Unavailable [address] [facility] [address] + [place] [address] CHARLES LACEY Unavailable [address] + [place] [address] UE Unavailable Unavailable Unavailable JOCELYNE BETANCOURTOMY Unavailable [address] [facility] + [place] [address] CHARLES LACEY Unavailable [address] + [place] [address] UE Unavailable Unavailable Unavailable MENNER, LIANNA Unavailable [address] [facility] + [place] [address] CHARLES LACEY Unavailable [address] + [place] [address] UE Unavailable Unavailable Unavailable MENNER, LIANNA Unavailable [address] [facility] + [place] [address] RODOLFO LACEYCY Unavailable [address] + [place] [address] UE Unavailable Unavailable Unavailable MENNER, LIANNA Unavailable [address] [facility] + [place] [address] RODOLFO LACEYCY Unavailable [address] + [place] [address] UE Unavailable Unavailable Unavailable MENNER, LIANNA Unavailable [address] [facility] [address] + [place] [address] CHARLES LACEY Unavailable [address] + [place] [address] UE Unavailable Unavailable Unavailable MENNER, LIANNA Unavailable [address] [facility] [address] + [place] [address] CHARLES LACEY Unavailable [address] + [place] [address] UE Unavailable Unavailable Unavailable MENNER, LIANNA Unavailable [address] + [place] [address] CHARLES LACEY Unavailable [address] + [place] [address] UE Unavailable Unavailable Unavailable MENNER, LIANNA Unavailable [address] + [place] [address] CHARLES LACEY Unavailable [address] + [place] [address] UE Unavailable Unavailable Unavailable MENNER, LIANNA Unavailable [address] + [place] [address] CHARLES LACEY Unavailable [address] + [place] [address] UE Unavailable Unavailable Unavailable MENNER, LIANNA Unavailable [address] + [place] [address] CHARLES LACEY Unavailable [address] + [place] [address] UE Unavailable Unavailable Unavailable MENNER, LIANNA Unavailable [address] + [place] [address] CHARLES LACEY Unavailable [address] + [place] [address] UE Unavailable Unavailable Unavailable MENNER, LIANNA Unavailable [address] + [place] [address] CHARLES LACEY Unavailable [address] + [place] [address] UE Unavailable Unavailable Unavailable MENNER, LIANNA Unavailable [address] + [place] [address] CHARLES LACEY Unavailable [address] + [place] [address] UE Unavailable Unavailable Unavailable MENNER, LIANNA Unavailable [address] + [place] [address] CHARLES LACEY Unavailable [address] + [place] [address] UE Unavailable Unavailable Unavailable MENNER, LIANNA Unavailable [address] + [place] [address] RODOLFO ALCEYCY Unavailable [address] + [place] [address] UE Unavailable Unavailable Unavailable MENNER, LIANNA Unavailable [address] [facility] [address] + [place] [address] RODOFLO LACEYCY Unavailable [address] + [place] [address] UE Unavailable Unavailable Unavailable MENNER, LIANNA Unavailable [address] [facility] [address] + [place] [address] RODOLFO LACEYCY Unavailable [address] + [place] [address] UE Unavailable Unavailable Unavailable MENNER, LIANAN Unavailable [address] [facility] [address] + [place] [address] RODOLFO LACEYCY Unavailable [address] + [place] [address] UE Unavailable Unavailable Unavailable PAHYACINTH, CHARLES Unavailable [address] + [place] [address] UE Unavailable Unavailable Unavailable MENNER, LIANNA Unavailable [address] [facility] [address] + [place] [address] RODOLFO LACEYCY Unavailable [address] + [place] [address] UE Unavailable Unavailable Unavailable MENNER, LIANNA Unavailable [address] [facility] [address] + [place] [address] RODOLFO LACEYCY Unavailable [address] + [place] [address] UE Unavailable Unavailable Unavailable MENNER, LIANNA Unavailable [address] [facility] [address] + [place] [address] RODOLFO LACEYCY Unavailable [address] + [place] [address] UE Unavailable Unavailable Unavailable MENNER, LIANNA Unavailable [address] [facility] [address] + [place] [address] RODOLFO LACEYCY Unavailable [address] + [place] [address] UE Unavailable Unavailable Unavailable MENNER, LIANNA Unavailable [address] [facility] [address] + [place] [address] RODOLFO LACEYCY Unavailable [address] + [place] [address] UE Unavailable Unavailable Unavailable MENNERJOCELYNELIANNA Unavailable [address] [facility] [address] + [place] [address] ABHIJIT CHARLES Unavailable [address] + [place] [address] UE Unavailable Unavailable Unavailable MENNER, LIANNA Unavailable [address] [facility] [address] + [place] [address] ABHIJIT CHARLES Unavailable [address] + [place] [address] UE Unavailable Unavailable Unavailable MENNER, LIANNA Unavailable [address] [facility] [address] + [place] [address] RODOLFO LACEYCY Unavailable [address] + [place] [address] UE Unavailable Unavailable Unavailable MENNER, LIANNA Unavailable [address] [facility] [address] + [place] [address] RODOLFO LACEYCY Unavailable [address] + [place] [address] UE Unavailable Unavailable Unavailable MENNER, LIANNA Unavailable [address] [facility] [address] + [place] [address] RODOLFO LACEYCY Unavailable [address] + [place] [address] UE Unavailable Unavailable Unavailable MENNER, LIANNA Unavailable [address] [facility] [address] + [place] [address] ABHIJIT CHARLES Unavailable [address] + [place] [address] UE Unavailable Unavailable Unavailable MENNER, LIANNA Unavailable [address] [facility] [address] + [place] [address] ABHIJIT CHARLES Unavailable [address] + [place] [address] UE Unavailable Unavailable Unavailable MENNER, LIANNA Unavailable [address] [facility] [address] + [place] [address] PAJAK, CHARLES Unavailable [address] + [place] [address] UE Unavailable Unavailable Unavailable MENNER, LIANNA Unavailable [address] + [place] [address] CHARLES LACEY Unavailable [address] + [place] [address] UE Unavailable Unavailable Unavailable MENNER, LIANNA Unavailable [address] + [place] [address] CHARLES LACEY Unavailable [address] + [place] [address] UE Unavailable Unavailable Unavailable MENNER, LIANNA Unavailable [address] [facility] [address] + [place] [address] CHARLES LACEY Unavailable [address] + [place] [address] UE Unavailable Unavailable Unavailable MENNER, LIANNA Unavailable [address] + [place] [address] CHARLES LACEY Unavailable [address] + [place] [address] UE Unavailable Unavailable Unavailable MENNER, LIANNA Unavailable [address] [facility] [address] + [place] [address] CHARLES LACEY Unavailable [address] + [place] [address] UE Unavailable Unavailable Unavailable MENNER, LIANNA Unavailable [address] [facility] [address] + [place] [address] CHARLES LACEY Unavailable [address] + [place] [address] UE Unavailable Unavailable Unavailable MENNER, LIANNA Unavailable [address] [facility] [address] + [place] [address] CHARLES LACEY Unavailable [address] + [place] [address] UE Unavailable Unavailable Unavailable MENNER, LIANNA Unavailable [address] + [place] [address] CHARLES LACEY Unavailable [address] + [place] [address] UE Unavailable Unavailable Unavailable MENNER, LIANNA Unavailable [address] [facility] [address] + [place] [address] RODOLFO LACEYCY Unavailable [address] + [place] [address] UE Unavailable Unavailable Unavailable JOCELYNE BETANCOURTOMY Unavailable [address] [facility] [address] + [place] [address] ABHIJIT, CHARLES Unavailable [address] + [place] [address] UE Unavailable Unavailable Unavailable MENJOCELYNE DRISCOLLOMY Unavailable [address] [facility] [address] + [place] [address] ABHIJIT, CHARLES Unavailable [address] + [place] [address] UE Unavailable Unavailable Unavailable JOCELYNE BETANCOURTOMY Unavailable [address] [facility] [address] + [place] [address] ABHIJIT, CHARLES Unavailable [address] + [place] [address] UE Unavailable Unavailable Unavailable MENJOCELYNE DRISCOLLOMY Unavailable [address] [facility] [address] + [place] [address] ABHIJIT, CHARLES Unavailable [address] + [place] [address] UE Unavailable Unavailable Unavailable JOCELYNE BETANCOURTOMY Unavailable [address] [facility] [address] + [place] [address] RODOLFO LACEYCY Unavailable [address] + [place] [address] UE Unavailable Unavailable Unavailable JOCELYNE BETANCOURTOMY Unavailable [address] [facility] [address] + [place] [address] ABHIJIT, CHARLES Unavailable [address] + [place] [address] UE Unavailable Unavailable Unavailable MENJOCELYNE DRISCOLLOMY Unavailable [address] [facility] [address] + [place] [address] ABHIJIT, CHARLES Unavailable [address] + [place] [address] UE Unavailable Unavailable Unavailable MENNERJOCELYNELIANNA Unavailable [address] [facility] [address] + [place] [address] PAJAK, CHARLES Unavailable [address] + [place] [address] UE Unavailable Unavailable Unavailable MENNER, LIANNA Unavailable [address] + [place] [address] CHARLES LACEY Unavailable [address] + [place] [address] UE Unavailable Unavailable Unavailable MENNER, LIANNA Unavailable [address] + [place] [address] CHARLES LACEY Unavailable [address] + [place] [address] UE Unavailable Unavailable Unavailable MENNER, LIANNA Unavailable [address] + [place] [address] CHARLES LACEY Unavailable [address] + [place] [address] UE Unavailable Unavailable Unavailable MENNER, LIANNA Unavailable [address] + [place] [address] CHARLES LACEY Unavailable [address] + [place] [address] UE Unavailable Unavailable Unavailable MENNER, LIANNA Unavailable [address] + [place] [address] CHARLES LACEY Unavailable [address] + [place] [address] UE Unavailable Unavailable Unavailable MENNER, LIANNA Unavailable [address] + [place] [address] CHARLES LACEY Unavailable [address] + [place] [address] UE Unavailable Unavailable Unavailable MENNER, LIANNA Unavailable [address] + [place] [address] CHARLES LACEY Unavailable [address] + [place] [address] UE Unavailable Unavailable Unavailable MENNER, LIANNA Unavailable [address] + [place] [address] CHARLES LACEY Unavailable [address] + [place] [address] UE Unavailable Unavailable Unavailable MENNER, LIANNA Unavailable [address] + [place] [address] RODOLFO LACEYCY Unavailable [address] + [place] [address] UE Unavailable Unavailable Unavailable JOCELYNE BETANCOURTOMY Unavailable [address] + [place] [address] RODOLFO LACEYCY Unavailable [address] + [place] [address] UE Unavailable Unavailable Unavailable JOCELYNE BETANCOURTOMY Unavailable [address] [facility] [address] + [place] [address] RODOLFO LACEYCY Unavailable [address] + [place] [address] UE Unavailable Unavailable Unavailable JOCELYNE BETANCOURTOMY Unavailable [address] [facility] [address] + [place] [address] RODOLFO LACEYCY Unavailable [address] + [place] [address] UE Unavailable Unavailable Unavailable JOCELYNE BETANCOURTOMY Unavailable [address] [facility] [address] + [place] [address] RODOLFO LACEYCY Unavailable [address] + [place] [address] UE Unavailable Unavailable Unavailable JOCELYNE BETANCOURTOMY Unavailable [address] [facility] [address] + [place] [address] RODOLFO LACEYCY Unavailable [address] + [place] [address] UE Unavailable Unavailable Unavailable JOCELYNE BETANCOURTOMY Unavailable [address] [facility] [address] + [place] [address] ABHIJIT CHARLES Unavailable [address] + [place] [address] UE Unavailable Unavailable Unavailable JOCELYNE BETANCOURTOMY Unavailable [address] [facility] [address] + [place] [address] JOCELYNE BETANCOURTOMY Unavailable [address] [facility] [address] + [place] [address] MENJOCELYNE DRISCOLLOMY Unavailable [address] [facility] [address] + [place] [address] RODOLFO LACEYCY Unavailable [address] + [place] [address] UE Unavailable Unavailable Unavailable MENNER, LIANNA Unavailable [address] + [place] [address] CHARLES LACEY Unavailable [address] + [place] [address] UE Unavailable Unavailable Unavailable MENNER, LIANNA Unavailable [address] + [place] [address] CHARLES LACEY Unavailable [address] + [place] [address] UE Unavailable Unavailable Unavailable MENNER, LIANNA Unavailable [address] [facility] [address] + [place] [address] CHARLES LACEY Unavailable [address] + [place] [address] UE Unavailable Unavailable Unavailable MENNER, LIANNA Unavailable [address] [facility] [address] + [place] [address] CHARLES LACEY Unavailable [address] + [place] [address] UE Unavailable Unavailable Unavailable MENNER, LIANNA Unavailable [address] [facility] [address] + [place] [address] CHARLES LACEY Unavailable [address] + [place] [address] UE Unavailable Unavailable Unavailable MENNER, LIANNA Unavailable [address] [facility] [address] + [place] [address] CHARLES LACEY Unavailable [address] + [place] [address] UE Unavailable Unavailable Unavailable MENNER, LIANNA Unavailable [address] [facility] [address] + [place] [address] CHARLES LACEY Unavailable [address] + [place] [address] UE Unavailable Unavailable Unavailable MENNER, LIANNA Unavailable [address] + [place] [address] CHARLES LACEY Unavailable [address] + [place] [address] UE Unavailable Unavailable Unavailable MENNER, LIANNA Unavailable [address] [facility] [address] + [place] [address] RODOLFO LACEYCY Unavailable [address] + [place] [address] UE Unavailable Unavailable Unavailable JOCELYNE BETANCOURTOMY Unavailable [address] [facility] [address] + [place] [address] ABHIJIT, CHARLES Unavailable [address] + [place] [address] UE Unavailable Unavailable Unavailable JOCELYNE BETANCOURTOMY Unavailable [address] [facility] [address] + [place] [address] PAHYACINTH, CHARLES Unavailable [address] + [place] [address] UE Unavailable Unavailable Unavailable JOCELYNE BETANCUORTOMY Unavailable [address] [facility] [address] + [place] [address] ABHIJIT, CHARLES Unavailable [address] + [place] [address] UE Unavailable Unavailable Unavailable JOCELYNE BETANCOURTOMY Unavailable [address] [facility] [address] + [place] [address] ABHIJIT, CHARLES Unavailable [address] + [place] [address] UE Unavailable Unavailable Unavailable JOCELYNE BETANCOURTOMY Unavailable [address] [facility] [address] + [place] [address] RODOLFO LACEYCY Unavailable [address] + [place] [address] UE Unavailable Unavailable Unavailable JOCELYNE BETANCOURTOMY Unavailable [address] [facility] [address] + [place] [address] ABHIJIT, CHARLES Unavailable [address] + [place] [address] UE Unavailable Unavailable Unavailable MENJOCELYNE DRISCOLLOMY Unavailable [address] [facility] [address] + [place] [address] PAHYACINTH, CHARLES Unavailable [address] + [place] [address] UE Unavailable Unavailable Unavailable MENJOCELYNE DRISCOLLOMY Unavailable [address] [facility] [address] + [place] [address] PAJAK, CHARLES Unavailable [address] + [place] [address] UE Unavailable Unavailable Unavailable MENNER, LIANNA Unavailable [address] + [place] [address] CHARLES LACEY Unavailable [address] + [place] [address] UE Unavailable Unavailable Unavailable MENNER, LIANNA Unavailable [address] + [place] [address] CHARLES LACEY Unavailable [address] + [place] [address] UE Unavailable Unavailable Unavailable MENNER, LIANNA Unavailable [address] + [place] [address] CHARLES LACEY Unavailable [address] + [place] [address] UE Unavailable Unavailable Unavailable MENNER, LIANNA Unavailable [address] + [place] [address] CHARLES LACEY Unavailable [address] + [place] [address] UE Unavailable Unavailable Unavailable MENNER, LIANNA Unavailable [address] [facility] [address] + [place] [address] CHARLES LACEY Unavailable [address] + [place] [address] UE Unavailable Unavailable Unavailable MENNER, LIANNA Unavailable [address] [facility] + [place] [address] CHARLES LACEY Unavailable [address] + [place] [address] UE Unavailable Unavailable Unavailable MENNER, LIANNA Unavailable [address] [facility] [address] + [place] [address] CHARLES LACEY Unavailable [address] + [place] [address] UE Unavailable Unavailable Unavailable MENNER, LIANNA Unavailable [address] + [place] [address] CHARLES LACEY Unavailable [address] + [place] [address] UE Unavailable Unavailable Unavailable MENNER, LIANNA Unavailable [address] [facility] [address] + [place] [address] RODOLFO LACEYCY Unavailable [address] + [place] [address] UE Unavailable Unavailable Unavailable JOCELYNE BETANCOURTOMY Unavailable [address] [facility] [address] + [place] [address] ABHIJIT, CHARLES Unavailable [address] + [place] [address] UE Unavailable Unavailable Unavailable JOCELYNE BETANCOURTOMY Unavailable [address] [facility] [address] + [place] [address] ABHIJIT, CHARLES Unavailable [address] + [place] [address] UE Unavailable Unavailable Unavailable JOCELYNE BETANCOURTOMY Unavailable [address] [facility] [address] + [place] [address] ABHIJIT, CHARLES Unavailable [address] + [place] [address] UE Unavailable Unavailable Unavailable MENJOCELYNE DRISCOLLOMY Unavailable [address] [facility] [address] + [place] [address] ABHIJIT, CHARLES Unavailable [address] + [place] [address] UE Unavailable Unavailable Unavailable JOCELYNE BETANCOURTOMY Unavailable [address] [facility] [address] + [place] [address] RODOLFO LACEYCY Unavailable [address] + [place] [address] UE Unavailable Unavailable Unavailable JOCELYNE BETANCOURTOMY Unavailable [address] [facility] [address] + [place] [address] PAHYACINTH, CHARLES Unavailable [address] + [place] [address] UE Unavailable Unavailable Unavailable MENJOCELYNE DRISCOLLOMY Unavailable [address] [facility] [address] + [place] [address] PAHYACINTH, CHARLES Unavailable [address] + [place] [address] UE Unavailable Unavailable Unavailable MENNERJOCELYNELIANNA Unavailable [address] [facility] [address] + [place] [address] PAHYACINTH CHARLES Unavailable [address] + [place] [address] UE Unavailable Unavailable Unavailable MENNER, LIANNA Unavailable [address] + [place] [address] CHARLES LACEY Unavailable [address] + [place] [address] UE Unavailable Unavailable Unavailable MENNER, LIANNA Unavailable [address] + [place] [address] CHARLES LACEY Unavailable [address] + [place] [address] UE Unavailable Unavailable Unavailable MENNER, LIANNA Unavailable [address] + [place] [address] CHARLES LACEY Unavailable [address] + [place] [address] UE Unavailable Unavailable Unavailable MENNER, LIANNA Unavailable [address] [facility] [address] + [place] [address] CHARLES LACEY Unavailable [address] + [place] [address] UE Unavailable Unavailable Unavailable MENNER, LIANNA Unavailable [address] [facility] [address] + [place] [address] CHARLES LACEY Unavailable [address] + [place] [address] UE Unavailable Unavailable Unavailable MENNER, LIANNA Unavailable [address] [facility] [address] + [place] [address] CHARLES LACEY Unavailable [address] + [place] [address] UE Unavailable Unavailable Unavailable MENNER, LIANNA Unavailable [address] [facility] [address] + [place] [address] CHARLES LACEY Unavailable [address] + [place] [address] UE Unavailable Unavailable Unavailable MENNER, LIANNA Unavailable [address] + [place] [address] CHARLES LACEY Unavailable [address] + [place] [address] UE Unavailable Unavailable Unavailable MENNOR, LIANNA Unavailable [address] + [place] [address] ABHIJIT, CHARLES Unavailable [address] + [place] [address] UE Unavailable Unavailable Unavailable MENNOR, LIANNA Unavailable [address] [facility] [address] + [place] [address] PAHYACINTH, CHARLES Unavailable [address] + [place] [address] UE Unavailable Unavailable Unavailable MENNER, LIANNA Unavailable [address] [facility] [address] + [place] [address] PAHYACINTH, CHARLES Unavailable [address] + [place] [address] UE Unavailable Unavailable Unavailable MENNER, LIANNA Unavailable [address] [facility] [address] + [place] [address] ABHIJIT, CHARLES Unavailable [address] + [place] [address] UE Unavailable Unavailable Unavailable MENNOR, LIANNA Unavailable [address] [facility] [address] + [place] [address] PAHYACINTH, CHARLES Unavailable [address] + [place] [address] UE Unavailable Unavailable Unavailable MENNER, LIANNA Unavailable [address] [facility] [address] + [place] [address] ABHIJIT, CHARLES Unavailable [address] + [place] [address] UE Unavailable Unavailable Unavailable MENNER, LIANNA Unavailable [address] [facility] [address] + [place] [address] PALLOYDK, CHARLES Unavailable [address] + [place] [address] UE Unavailable Unavailable Unavailable MENNOR, LIANNA Unavailable [address] [facility] [address] + [place] [address] PALLOYDK, CHARLES Unavailable [address] + [place] [address] UE Unavailable Unavailable Unavailable MENNOR, LIANNA Unavailable [address] [facility] [address] + [place] [address] RODOLFO LACEYCY Unavailable [address] + [place] [address] UE Unavailable Unavailable Unavailable MENNOR, LIANNA Unavailable [address] [facility] [address] + [place] [address] RODOLFO LACEYCY Unavailable [address] + [place] [address] UE Unavailable Unavailable Unavailable MENNOR, LIANNA Unavailable [address] [facility] [address] + [place] [address] RODOLFO LACEYCY Unavailable [address] + [place] [address] UE Unavailable Unavailable Unavailable MENNOR, LIANNA Unavailable [address] [facility] [address] + [place] [address] RODOLFO LACEYCY Unavailable [address] + [place] [address] UE Unavailable Unavailable Unavailable MENNOR, LIANNA Unavailable [address] [facility] [address] + [place] [address] RODOLFO LACEYCY Unavailable PO [address] + [place] [address] UE Unavailable Unavailable Unavailable MENNER, LIANNA Unavailable [address] [facility] [address] + [place] [address] RODOLFO LACEYCY Unavailable [address] + [place] [address] UE Unavailable Unavailable Unavailable MENNOR, LIANNA Unavailable [address] [facility] [address] + [place] [address] RODOLFO LACEYCY Unavailable [address] + [place] [address] UE Unavailable Unavailable Unavailable MENNOR, LIANNA Unavailable [address] [facility] [address] + [place] [address] RODOLFO LACEYCY Unavailable [address] + [place] [address] UE Unavailable Unavailable Unavailable MENNOR, LIANNA Unavailable [address] [facility] [address] + [place] [address] RODOLFO LACEYCY Unavailable [address] + [place] [address] UE Unavailable Unavailable Unavailable MENNOR, LIANNA Unavailable [address] [facility] [address] + [place] [address] CHARLES LACEY Unavailable [address] + [place] [address] UE Unavailable Unavailable Unavailable MENNOR, LIANNA Unavailable [address] [facility] [address] + [place] [address] CHARLES LACEY Unavailable [address] + [place] [address] UE Unavailable Unavailable Unavailable MENNOR, LIANNA Unavailable [address] [facility] [address] + [place] [address] CHARLES LACEY Unavailable [address] + [place] [address] UE Unavailable Unavailable Unavailable MENNOR, LIANNA Unavailable [address] [facility] [address] + [place] [address] CHARLES LACEY Unavailable [address] + [place] [address] UE Unavailable Unavailable Unavailable MENNER, LIANNA Unavailable [address] [facility] [address] + [place] [address] CHARLES LACEY Unavailable [address] + [place] [address] UE Unavailable Unavailable Unavailable MENNOR, LIANNA Unavailable [address] [facility] [address] + [place] [address] CHARLES LACEY Unavailable [address] + [place] [address] UE Unavailable Unavailable Unavailable Care Team Providers Name Role Phone Evangelist Moseley Attending Unavailable Evangelist Moseley Attending Unavailable Evangelist Moseley Referring Unavailable KADEN ROBLES Primary Care Unavailable Owen Edouard Attending Unavailable KADEN ROBLES Referring Unavailable KADEN ROBLES Primary Care Unavailable Owen Edouard Consulting Unavailable Jose Robertson Attending Unavailable KADEN ROBLES Primary Care Unavailable Devon Xiong Attending Unavailable Devon Xiong Referring Unavailable Evangelist Moseley Attending Unavailable Jose Robertson Attending Unavailable KADEN ROBLES Primary Care Unavailable Jose Robertson Attending Unavailable NAUMOFF, KADEN Primary Care Unavailable SlabJose marlow Attending Unavailable NAUMOFF, KADEN Primary Care Unavailable SlabJose marlow Attending Unavailable NAUMOFF, KADEN Primary Care Unavailable Spencer, Jazzy E Attending Unavailable NAUMOFF, KADEN Referring Unavailable Slaby, Jose Attending Unavailable NAUMOFF, KADEN Primary Care Unavailable Spencer, Jazzy E Attending Unavailable NAUMOFF, KADEN Referring Unavailable Oleghe, Efewongbe Attending Unavailable Oleghe, Efewongbe Referring Unavailable Oleghe, Efewongbe Attending Unavailable Oleghe, Efewongbe Referring Unavailable Spencer, Jazzy E Attending Unavailable NAUMOFF, KADEN Referring Unavailable Spencer, Jazzy E Attending Unavailable NAUMOFF, KADEN Primary Care Unavailable Jose Robertson Consulting Unavailable Jose Robertson Attending Unavailable NAUMOFF, KADEN Primary Care Unavailable Jose Robertson Consulting Unavailable Mackenzie Love Attending Unavailable NAUMOFF, MEDIA Primary Care Unavailable Jose Robertson Consulting Unavailable Reynaldo Pizarro [facility] Attending Unavailable Jose Robertson Referring Unavailable ShoCarolyn torres [facility] [employer] Attending Unavailable NAUMOFF, KADEN Referring Unavailable NAUMOFF, KADEN Primary Care Unavailable Marcelo, Jose Attending Unavailable Jose Robertson Referring Unavailable Raymondtmann, Saad Attending Unavailable Wartmann, Saad Referring Unavailable NAUMOFF, MEDIA Primary Care Unavailable Mackenzie Love Attending Unavailable NAUMOFF, MEDIA Primary Care Unavailable Jose Robertson Consulting Unavailable Gini Alcala Attending Unavailable LaloanthGini pena Referring Unavailable NAUMOFF, KADEN Primary Care Unavailable ShoCarolyn torres [facility] Consulting Unavailable Isckarus Mansour Attending Unavailable NAUMOFF, KADEN Primary Care Unavailable IsckarusShashiour Referring Unavailable MarcGini blanc Consulting Unavailable Jason, Albert Admitting Unavailable SlabJose marlow Attending Unavailable Jose Robertson Referring Unavailable NAUMOFF, KADEN Primary Care Unavailable Jason, Albert Consulting Unavailable Collette Medellin Consulting Unavailable Jose Robertson Consulting Unavailable Jose Robertson Attending Unavailable NAUMOFF, KADEN Primary Care Unavailable Jose Robertson Consulting Unavailable Jose Robertson Attending Unavailable NAUMOFF, KADEN Primary Care Unavailable Jose Robertson Consulting Unavailable Reynaldo Pizarro [facility] [employer]-C Attending Unavailable NAUMOFF, KADEN Primary Care Unavailable Slaby, Jose Consulting Unavailable Jason, Albert Admitting Unavailable Jason, Albert Attending Unavailable Slaby, Jose Referring Unavailable NAUMOFF, KADEN Primary Care Unavailable Jason, Albert Consulting Unavailable Vignesh, Collette S. Consulting Unavailable Slaby, Jose Consulting Unavailable Jason, Albert Attending Unavailable Slaby, Jose Referring Unavailable NAUMOFF, KADEN Primary Care Unavailable Jason, Albert Consulting Unavailable Slaby, Jose Consulting Unavailable ClaudiaVarinder cornejo Attending Unavailable Slaby, Jose Referring Unavailable NAUMOFF, KADEN Primary Care Unavailable Slaby, Jose Consulting Unavailable NAUMOFF, KADEN Primary Care Unavailable Devon Xiong Attending Unavailable Slaby, Jose Attending Unavailable NAUMOFF, KADEN Primary Care Unavailable Slaby, Jose Consulting Unavailable Slaby, Jose Attending Unavailable NAUMOFF, KADEN Primary Care Unavailable Slaby, Jose Consulting Unavailable Isckarus, Owen Attending Unavailable NAUMOFF, KADEN Referring Unavailable NAUMOFF, KADEN Primary Care Unavailable Isckarus, Owen Consulting Unavailable Reynaldo Pizarro NP-C Attending Unavailable NAUMOFF, KADEN Primary Care Unavailable Slaby, Jose Consulting Unavailable Slaby, Jose Attending Unavailable Slaby, Jose Referring Unavailable NAUMOFF, KADEN Primary Care Unavailable [facility], Albert Consulting Unavailable Jason, Albert Admitting Unavailable Vignesh, Collette S. Consulting Unavailable Slaby, Jose Attending Unavailable NAUMOFF, KADEN Primary Care Unavailable Slaby, Jose Consulting Unavailable Marcanthony, Gini Attending Unavailable Marcanthony, Gini Referring Unavailable NAUMOFF, KADEN Primary Care Unavailable Marckyrieony, Gini Attending Unavailable NAUMOFF, KADEN Referring Unavailable NAUMOFF, KADEN Primary Care Unavailable PraSean brumfield Attending Unavailable NAUMOFF, KADEN Referring Unavailable NAUMOFF, KADEN Primary Care Unavailable Isckarus, Shashiour Consulting Unavailable Slaby, Jose Attending Unavailable NAUMOFF, KADEN Primary Care Unavailable MarckyrieonyGini Attending Unavailable NAUMOFF, KADEN Referring Unavailable Slaby, Jose Attending Unavailable NAUMOFF, KADEN Primary Care Unavailable Slaby, Jose Consulting Unavailable Slaby, Jose Attending Unavailable NAUMOFF, KADEN Primary Care Unavailable Slaby, Jose Consulting Unavailable Slaby, Jose Attending Unavailable NAUMOFF, KADEN Primary Care Unavailable Slaby, Jose Consulting Unavailable Slaby, Jose Attending Unavailable NAUMOFF, KADEN Primary Care Unavailable Slaby, Jose Consulting Unavailable [place], Nathaniel Attending Unavailable Isckarus, Shashiour Referring Unavailable Isckarus, Owen Attending Unavailable NAUMOFF, KADEN Referring Unavailable NAUMOFF, KADEN Primary Care Unavailable Isckarus, Shashiour Consulting Unavailable Slaby, Jose Attending Unavailable NAUMOFF, KADEN Primary Care Unavailable Slaby, Jose Attending Unavailable NAUMOFF, KADEN Primary Care Unavailable Tyrese, Devon Attending Unavailable NAUMOFF, KADEN Primary Care Unavailable Isckarus, Shashiour Attending Unavailable NAUMOFF, KADEN Referring Unavailable NAUMOFF, KADEN Primary Care Unavailable Isckarus, Mansour Consulting Unavailable Tyrese, Devon Attending Unavailable NAUMOFF, [...] Jose Consulting Unavailable Isckarus, Owen Attending Unavailable Isckarus, Shashiour Referring Unavailable NAUMOFF, KADEN Primary Care Unavailable Celine FRANCO-Izabella Dawson Attending Unavailable NAUMOFF, KADEN Referring Unavailable NAUMOFF, KADEN Primary Care Unavailable Isckarus, Owen Attending Unavailable NAUMOFF, KADEN Referring Unavailable NAUMOFF, KADEN Primary Care Unavailable Isckarus, Shashiour Consulting Unavailable Evangelist Moseley Attending Unavailable LoreleiEvangelist Referring Unavailable NAUMOFF, KADEN Primary Care Unavailable Celine FRANCO-CIzabella Attending Unavailable NAUMOFF, KADEN Referring Unavailable Francisco Restrepo Attending Unavailable Slaby, Jose Referring Unavailable Slaby, Jose Attending Unavailable Slaby, Jose Attending Unavailable Slaby, Jose Referring Unavailable NAUMOFF, KADEN Primary Care Unavailable Slaby, Jose Admitting Unavailable Slaby, Jose Attending Unavailable Slaby, Jose Referring Unavailable NAUMOFF, KADEN Primary Care Unavailable Slaby, Jose Consulting Unavailable Slaby, Jose Attending Unavailable NAUMOFF, KADEN Primary Care Unavailable Slaby, Jose Referring Unavailable NAUMOFF, KADEN Primary Care Unavailable Francis Scott Attending Unavailable Marcanthony, Gini Attending Unavailable Marcanthony, Gini Referring Unavailable Marcanthony, Gini Attending Unavailable NAUMOFF, KADEN Referring Unavailable NAUMOFF, KADEN Primary Care Unavailable Slaby, Jose Attending Unavailable NAUMOFF, KADEN Primary Care Unavailable Lauro, Francisco Attending Unavailable Slaby, Jose Admitting Unavailable Slaby, Jose Attending Unavailable NAUMOFF, KADEN Primary Care Unavailable Isckarus, Mansour Consulting Unavailable [place], [place] Consulting Unavailable Slaby, Jose Attending Unavailable NAUMOFF, KADEN Referring Unavailable Slaby, Jose Admitting Unavailable Paint[place], [place] Attending Unavailable NAUMOFF, KADEN Primary Care Unavailable Isckarus, [place] Consulting Unavailable Paint[place], [place] Consulting Unavailable Slaby, Jose Admitting Unavailable Isckarus, Shashiour Attending Unavailable NAUMOFF, KADEN Primary Care Unavailable Isckarus, [place] Consulting Unavailable Paintsil, [place] Consulting Unavailable Slaby, Jose Admitting Unavailable Slaby, [...] Primary Care Unavailable Slaby, Jose Consulting Unavailable Jillian Kapadia Attending Unavailable NAUMOFF, KADEN Primary Care Unavailable NAUMOFF, KADEN Primary Care Unavailable Slaby, Jose Admitting Unavailable [place], [place] Attending Unavailable Isckarus, [place] Consulting Unavailable Slaby, Jose Attending Unavailable NAUMOFF, KADEN Primary Care Unavailable Slaby, Jose Attending Unavailable Slaby, Jose Referring Unavailable NAUMOFF, KADEN Primary Care Unavailable Slaby, Jose Admitting Unavailable Slaby, Jose Attending Unavailable Slaby, Jose Referring Unavailable NAUMOFF, KADEN Primary Care Unavailable Slaby, Jose Consulting Unavailable LoreleiEvangelist Attending Unavailable NAUMOFF, KADEN Primary Care Unavailable Jazzy Palmer Attending Unavailable NAUMOFF, KADEN Referring Unavailable LoreleiEvangelist Attending Unavailable Slaby, Jose Admitting Unavailable Slaby, Jose Attending Unavailable Slaby, Jose Referring Unavailable NAUMOFF, KADEN Primary Care Unavailable Slaby, Jose Attending Unavailable Slaby, Jose Referring Unavailable NAUMOFF, KADEN Primary Care Unavailable Slaby, Jose Attending Unavailable NAUMOFF, KADEN Referring Unavailable Isckarus, Owen Attending Unavailable NAUMOFF, KADEN Referring Unavailable NAUMOFF, KADEN Primary Care Unavailable Isckarus, [place] Consulting Unavailable [place], Karly Attending Unavailable [place], Karly Referring Unavailable NAUMOFF, KADEN Primary Care Unavailable [place], Karly Attending Unavailable NAUMOFF, KADEN Referring Unavailable NAUMOFF, KADEN Primary Care Unavailable Evangelist Moseley Attending Unavailable NAUMOFF, KADEN Referring Unavailable NAUMOFF, KADEN Primary Care Unavailable Emmanuel, Erica Attending Unavailable Emmanuel, Erica Referring Unavailable NAUMOFF, KADEN Primary Care Unavailable Devon Xiong Attending Unavailable NAUMOFF, KADEN Primary Care Unavailable Isckarus, Owen Consulting Unavailable Slaby, Jose Attending Unavailable NAUMOFF, KADEN Referring Unavailable NAUMOFF, KADEN Primary Care Unavailable Slaby, Jose Attending Unavailable Slaby, Jose Referring Unavailable NAUMOFF, KADEN Primary Care Unavailable Emmanuel, Erica Attending Unavailable NAUMOFF, KADEN Primary Care Unavailable Isckarus, Owen Consulting Unavailable Isckarus, Owen Attending Unavailable NAUMOFF, KADEN Primary Care Unavailable Isckarus, Owen Consulting Unavailable Isckarus, Owen Attending Unavailable NAUMOFF, KADEN Primary Care Unavailable NAUMOFF, KADEN Referring Unavailable Slaby, Jose Attending Unavailable NAUMOFF, KADEN Referring Unavailable Francisco Restrepo Attending Unavailable Isckarus, Mansjocelyn Referring Unavailable Jazzy Palmer Attending Unavailable NAUMOFF, KADEN Referring Unavailable Slaby, Jose Attending Unavailable NAUMOFF, KADEN Primary Care Unavailable Slaby, Jose Consulting Unavailable NAUMOFF, KADEN Referring Unavailable Slaby, Jose Attending Unavailable Slaby, Jose Referring Unavailable NAUMOFF, KADEN Primary Care Unavailable Slaby, Jose Consulting Unavailable Slaby, Jose Attending Unavailable NAUMOFF, KADEN Referring Unavailable NAUMOFF, KADEN Primary Care Unavailable Isckarus, Owen Attending Unavailable Isckarus, Owen Referring Unavailable NAUMOFF, KADEN Primary Care Unavailable NAUMOFF, KADEN Primary Care Unavailable UngHannah serna Attending Unavailable Slaby, Jose Attending Unavailable Slaby, Jose Referring Unavailable NAUMOFF, KADEN Primary Care Unavailable Isckarus, Owen Attending Unavailable NAUMOFF, KADEN Referring Unavailable NAUMOFF, KADEN Primary Care Unavailable Isckarus, [place] Consulting Unavailable Shook, Carolyn Khan [facility]-[facility] Attending Unavailable Shook, Carolyn Khan [facility] Referring Unavailable Oleghe, Efewongbe Primary Care Unavailable Shook, Carolyn Khan [facility] [employer]-C Attending Unavailable NAUMOFF, KADEN Referring Unavailable Oleghe, Efewongbe Attending Unavailable NAUMOFF, KADEN Referring Unavailable Slaby, Jose Attending Unavailable NAUMOFF, KADEN Primary Care Unavailable Slaby, Jose Attending Unavailable NAUMOFF, KADEN Referring Unavailable Love, Mackenzie Attending Unavailable Love, Mackenzie Referring Unavailable Love, Mackenzie Attending Unavailable Love, Mackenzie Referring Unavailable Linden, Jacques Attending Unavailable Linden, Jacques Referring Unavailable NAUMOFF, KADEN Primary Care Unavailable Linden, Jacques Attending Unavailable NAUMOFF, KADEN Referring Unavailable Slaby, Jose Attending Unavailable Slaby, Jose Referring Unavailable NAUMOFF, KADEN Primary Care Unavailable Love, Mackenzie Attending Unavailable Love, Mackenzie Referring Unavailable Love, Mackenzie Attending Unavailable Love, Mackenzie Referring Unavailable Love, Mackenzie Attending Unavailable Love, Mackenzie Referring Unavailable Slaby, Jose Attending Unavailable Slaby, Jose Referring Unavailable NAUMOFF, KADEN Primary Care Unavailable Chestery, Jose Consulting Unavailable PITTINGER, JUDY A Attending Unavailable PITTINGER, JUDY A Attending Unavailable PITTINGER, JUDY A Attending Unavailable PITTINGER, JUDY A Attending Unavailable RIYA MULTIPLE CUT OFF SAW OPERATOR, MS. FLYNN Rodríguez Attending Unavailable MARGARET HAYNES, DR. KADEN Khan Primary Care Unavailable PITTINGER, JUDY Attending Unavailable [facility] Referring Unavailable NAUMOFF, ANDRER Primary Care Unavailable PITTINGER, JUDY Attending Unavailable IMCA Referring Unavailable NAUMOFF, ANDRER Primary Care Unavailable PITTINGER, JUDY Attending Unavailable IMCA Referring Unavailable NAUMOFF, ANDRER Primary Care Unavailable PITTINGER, JUDY Attending Unavailable IMCA Referring Unavailable NAUMOFF, ANDRER Primary Care Unavailable PITTINGER, JUDY Attending Unavailable IMCA Referring Unavailable NAUMOFF, ANDRER Primary Care Unavailable PITTINGER, JUDY Attending Unavailable IMCA Referring Unavailable NAUMOFF, DEANN Primary Care Unavailable PITTINGER, JUDY Attending Unavailable IM[facility] Referring Unavailable NAUMOFF, ANDRER Primary Care Unavailable PROBLEMS PROBLEMS DATE TYPE CONDITION / CODE ATTENDING STATUS SOURCE 11/01/2018 Unknown M25.612 - Stiffness Jose Robertson Active [place] of left shoulder, Community not elsewhere Hospital classified / Repository M25.612(ICD-10) 11/01/2018 Unknown E66.9 - Obesity, Devon Xiong Active [place] unspecified / Community E66.9(ICD-10) Hospital Repository 10/31/2018 Unknown Z45.2 - Encounter Lorelei, Active [facility] for adjustment and Evangelist [facility] management of Hospital vascular access Repository device / Z45.2(ICD-10) 10/05/2018 Unknown C50.912 - Malignant SlabJose marlow Active [place] neoplasm of Community unspecified site of Hospital left female breast / Repository C50.912(ICD-10) 10/05/2018 Unknown N65.0 - Deformity of Jose Robertson Active [place] reconstructed breast [facility] / N65.0(ICD-10) Hospital Repository 10/05/2018 Unknown T66.XXXS - Radiation SlabJose marlow Active [place] sickness, Community unspecified, [facility] / T66.XXXS(ICD-10) Repository 10/05/2018 Unknown N65.1 - SlabJose marlow Active [place] Disproportion of Community reconstructed breast Hospital / N65.1(ICD-10) Repository 10/05/2018 Unknown N64.4 - Mastodynia / Jose Robertson Active [place] N64.4(ICD-10) [facility] Hospital Repository 10/05/2018 Unknown Z90.12 - Acquired SlabJose marlow Active [facility] absence of left Community breast and nipple / Hospital Z90.12(ICD-10) Repository 09/28/2018 Unknown G89.18 - Other acute SlabJose marlow Active [facility] postprocedural pain [facility] / G89.18(ICD-10) Hospital Repository 10/13/2018 Unknown Z79.899 - Other long Lauro, [place] Active [facility] term (current) drug [facility] therapy / Hospital Z79.899(ICD-10) Repository 09/19/2018 Unknown Z51.11 - Encounter Iscbianca, Active [place] for [facility]oplastic [facility] chemotherapy / Hospital Z51.11(ICD-10) Repository 09/12/2018 Unknown C50.919 - Malignant Isckarus, Active [place] neoplasm of [facility] unspecified site of Hospital unspecified female Repository breast / C50.919(ICD-10) 09/19/2018 Unknown E03.9 - Carolyn Be Active [place] Hypothyroidism, J [facility] Community unspecified / Hospital E03.9(ICD-10) Repository 08/26/2018 Unknown E07.9 - Disorder of Oleghe, Active [facility] thyroid, unspecified [facility] / E07.9(ICD-10) Hospital Repository 08/16/2018 Unknown R10.13 - Epigastric Linden, Jacques Active [place] pain / Community R10.13(ICD-10) Hospital Repository 08/16/2018 Unknown L59.8 - Other Love, Active [facility] specified disorders Mackenzie Community of the skin and Hospital subcutaneous tissue Repository related to radiation / L59.8(ICD-10) 08/04/2018 Unknown L59.9 - Disorder of Oleghe, Active [facility] the skin and [facility] subcutaneous tissue Hospital related to Repository radiation, unspecified / L59.9(ICD-10) 08/04/2018 Unknown T66.XXXA - Radiation Oleghe, Active [place] sickness, [facility] unspecified, initial Hospital encounter / Repository T66.XXXA(ICD-10) 07/11/2018 Unknown N83.202 - Marcanthony, Active [place] Unspecified ovarian Gini Community cyst, left side / Hospital N83.202(ICD-10) Repository 03/29/2018 Unknown D64.9 - Anemia, Isckarus, Active [place] unspecified / [facility] D64.9(ICD-10) Hospital Repository 03/18/2018 Unknown Z80.0 - Family Celine HARRIS, Active [place] history of malignant [facility] neoplasm of Hospital digestive organs / Repository Z80.0(ICD-10) 03/18/2018 Unknown K21.9 - Celine HARRIS, Active [facility] Gastro-esophageal [facility] reflux disease Hospital without esophagitis Repository / K21.9(ICD-10) 02/22/2018 Unknown T81.4XXA - Infection Jsoe Robertson Active [place] following a Community procedure, initial Hospital encounter / Repository T81.4XXA(ICD-10) 02/22/2018 Unknown B96.89 - Other Jose Robertson Active [facility] specified bacterial Community agents as the cause Hospital of diseases Repository classified elsewhere / B96.89(ICD-10) 02/10/2018 Unknown Z85.3 - Personal Isckarus, Active [facility] history of malignant [place] Community neoplasm of breast / Hospital Z85.3(ICD-10) Repository 02/15/2018 Unknown S21.002A - Jose Robertson Active [facility] Unspecified open Community wound of left Hospital breast, initial Repository encounter / S21.002A(ICD-10) 02/15/2018 Unknown T88.8XXD - Other Jose Robertson Active [place] specified Community complications of Hospital surgical and medical Repository care, not elsewhere classified, subsequent encounter / T88.8XXD(ICD-10) 01/28/2018 Unknown Z12.4 - Encounter Cari Active [facility] for screening for Gini [facility] malignant neoplasm [facility] of cervix / Repository Z12.4(ICD-10) 02/23/2018 Unknown R06.02 - Shortness Lauro, [place] Active [facility] of breath / Community R06.02(ICD-10) Hospital Repository 02/09/2018 Unknown L90.5 - Scar Jose Robertson Active [place] conditions and Community fibrosis of skin / Hospital L90.5(ICD-10) Repository 12/28/2017 Unknown N93.8 - Other Laura, Active [place] specified abnormal [facility] uterine and vaginal Hospital bleeding / Repository N93.8(ICD-10) 12/28/2017 Unknown Z79.810 - classifier Laura, Active [place] (current) use of [facility] selective estrogen Hospital receptor modulators Repository (SERMs) / Z79.810(ICD-10) 12/21/2017 Active Anxiety disorder, PITTINGER, Active [place] unspecified / [facility] Other F41.9(ICD-10) [place] Repository 12/21/2017 Active Major depressive PITTINGER, Active [place] disorder, recurrent, [facility] Other moderate / [place] F33.1(ICD-10) Repository 12/21/2017 Admitting Unknown / PITTINGER, Active [place] [facility] diagnosis UNK(Unknown) [facility] Repository 12/14/2017 Unknown Z51.0 - Encounter Devon Xiong Active [facility] for antineoplastic Community radiation therapy / Hospital Z51.0(ICD-10) Repository 12/09/2017 Unknown Z92.29 - Personal Emmanuel, Active [facility] history of other [facility] drug therapy / Hospital Z92.29(ICD-10) Repository PROCEDURES PROCEDURES No Procedure Records FoundRESULTS RESULTS PLASTIC SURGERY Observed: 11/08/2018 Status: F Source: [facility] VISIT REPORT 9:59 AM [facility] REPOSITORY [facility] [address] [place] [address] OFFICE VISIT Date of Service: 11/03/18 MR#: [id number] Acct: [id number] Name: GAIL LACEY Rep #: [id number] : 1985 Provider: TRAE Palmer Age/Sex: 33/F Location: [facility] Status: Signed Intake Vital Signs11/03/18 Body Mass Index (BMI) 30.6 11/03/18 Blood Pressure 145/98 H H 11/03/18 Blood Pressure Location Rt brachial 11/03/18 Blood Pressure Position Sitting 11/03/18 Respiratory Rate 16 11/03/18 Pulse Rate 118 H Intake Visit Reasons: post op surgery 09/27/18 Aged Or Disabled Carer Required: No Accompanied by: None Is patient in pain?: No Allergies hydromorphone [From Dilaudid] Allergy (Severe, Verified 11/03/18 14:15) Laryngospasms morphine Allergy (Severe, Verified 11/03/18 14:15) chest tightening TAPE Adverse Reaction (Mild, Uncoded 11/03/18 14:15) Other Medications armodafinil 50 mg tablet 50 mg PO QAM 08/26/18 [History Confirmed 10/25/18] Levothyroxine Sodium [Synthroid] 25 mcg PO MOTUWETHFRSA 09/12/18 [History Confirmed 10/25/18] Dextroamphetamine Sulfate [Dextroamphetamine Sulfate ER] 15 mg PO BID 09/14/18 [History Confirmed 10/25/18] Digestive 8/L.acidoph/Pectin [Digestive Enzymes Tablet] 1 ea PO BID 09/20/18 [History Confirmed 10/25/18] Iron Polysaccharide Complex [Ferrex 150] 150 mg PO DAILYCM 09/20/18 [History Confirmed 10/25/18] L.acidoph,Paracasei, B.lactis [Probiotic] 1 ea PO DAILY 09/20/18 [History Confirmed 10/25/18] Multivitamin [Multiple Vitamins] 1 ea PO DAILY 09/20/18 [History Confirmed 10/25/18] diazepam 5 mg tablet 5 mg PO 4X/DAY PRN #30 tab 10/05/18 [Rx Confirmed 10/25/18] PFSH Medical History Anemia (Chronic) Anxiety (Chronic) [...] LATERAL BREAST (Acute) med port placement (Acute) [place] teeth extracted (Resolved) Family History Mother Psychiatric [...] EXPOSURE: RARELY - [place]- [employer] HPI post op surgery 09/27/18: Details: Postop visit from her recent surgery on 09/27/18 where she underwent revision reconstructed left breast with excision painful soft tissue radionecrosis scar deformity and excision painful excess mastectomy skin scar contour deformity. Denies any complaints. On exam, incision is dry and intact. No clinical evidence of hematoma or seroma. No evidence of infection. Pathology showed fibroadipose tissue and skeletal muscle tissue with focal fat necrosis, chronic inflammation and foreign body giant cell reaction. Operative culture was negative. Continue LONA wrap chest wall compression, or wear external prosthesis for compression especially with activity. Denies any pain or issues with the external prosthesis. She wears it intermittently. Awaiting nipple prosthesis and compression sleeve from [facility] in [place]. Continue physical therapy for left shoulder range of motion exercises. She has some scattered lesions cluster on her left distal forearm. She noticed these after her diagnosis of cancer. She thinks the cluster is enlarging. Clinically they look benign. Initially she should be evaluated by Dermatology. If they think the cluster looks suspicious, they can biopsy or she can return here and we can biopsy the lesions. Otherwise follow up on an as needed basis. Assessment AND Plan Problems 1. Cancer of left female breast C50.912 2. Disproportion of reconstructed breast N65.1 3. Deformity of reconstructed breast N65.0 4. Late effect of radiation T66.XXXS 5. 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 Pain of left breast N64.4 7. 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 [place] [address] / REHABILITATION SERVICES INITIAL EVALUATION MR#: [id number] Acct: [id number] Name: GAIL LACEY Rep #: [id number] : 1985 33 From: Lani Baltazar M.S., [facility] Referring Dr.: Jose Robertson MD Status: REG RCR Insurance: [employer]ANCE History - History Date of Eval: 11/01/18 Date of Onset of Diagnosis: august 2017 Previous speech therapy: No Other Relevant Medical History/Diagnoses/Surgery: STEVE, hypothyroidism, chronic back pain, narcolepsy, anxiety and depression, S/P lumpectomy with chemotherapy and radiation, disproportion reconstructed LT breast, intermittent epigastric ABD pain. Patient stated was diagnosed with Breast cancer March 2017. Patient had a partial mastectomy-April 06, 2017. Received debridement July 2017. Began Chemotherapy May 18, 2017 through September 06, 2017. October 13 2017-November 10 or 2017 received radiation everyday 5 days a week. January 04 2018, had LT breast reconstruction with excision painful infected lateral radiation lumpectomy scar contour deformity w/ completion Mastectomy. June 24, 2018 had a revision. July 12, 2018, had myringotomy tubes bilateral. September had final revision. And October 25 2018 had port removed. Patient stated she can t remember if anything occurred January/February/March of 2018. Smoking Status: Former smoker Hx Smoking: No Hx Tobacco Use: No Hx Smoking Exposure: Yes - Pain Is pain an issue with your current prescribed condition?: No Patient Allergies - Allergies Allergies hydromorphone [From Dilaudid] Allergy (Severe, Verified 11/03/18 14:15) Laryngospasms morphine Allergy (Severe, Verified 11/03/18 14:15) chest tightening TAPE Adverse Reaction (Mild, Uncoded 11/03/18 14:15) Other Other Impressions - Comments Patient interview -: Patient appeared anxious and at times became emotional when discussing the activities that she was having difficulty with. Patient does see a psychologist every 3-6 months. Patient stated she went off psychotic drugs right before she got diagnoses with breast cancer. Patient stated that she began noticing having cognitive problems in August 2017. 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 She stated that things are different and worse now. She stated that She can t remember having conversations with people, but if a person comes up to her and ask her about a conversation they had previously and gives her a clue such as the location they were at, She is then able to remember the conversation. She stated that after each surgery she notices that her cognitive functions have declined as well as having periods of not eating well. Patient states that activities such as doing the budgeting, banking, making measurements and formulating a plan to build a piece of furniture for her to do she can not longer do. She stated she can make the measurements for the furniture but has difficulty taking those measurements and making the plan on how the pieces go together so that her is able to understand the directions. She gave an example that she found herself in the kitchen the other day and did not know why she was in the kitchen. Her came into the room and she stated she became emotional and stated to him she didn t know why she was in the kitchen. She noticed the cat food bag and then realized she had come into the kitchen to feed the cat. Patient is also aware that she talks incessantly and does not have a verbal filter. She stated that she can t control it. She stated that before she would be aware of other peoples body language and opinions but now when she has a conversation with someone and she disagrees, she has no filter and only realizes it if the person she is talking to points it out to her. Patient states she is also having difficulty with reading. She was an avid reader and now she just can t read. It is hard for her to track the words and she can t remember what she has read. She stated it is easier to track printed material on her phone because it s a smaller screen. Even when reading to her children, she has to track the words with her finger otherwise she loses her place. She stated she now does keep a calendar but forgets to refer to it. She stated if it s out of sight it s out of mind . She stated that she forgets to eat. Her will come home and ask her what she ate, and she realizes that she hasn t eaten that day. She stated that she has difficulty remembering her medication. She stated September 26 was the last day I took medication . Patient stated she finds herself starting to withdrawal from people and activities. She realizes that she does not have a verbal filter, and once she starts talking doesn t realize when to end a conversation and cannot remember conversations that she has had. Plan - Plan Plan: Recommend speech therapy. Plan to complete cognitive testing. Patient s goal is to get help in helping with her organizational skills to be able to complete activities that help to run the household. - Recommendations MBS: No Treatment Warranted: Yes - Frequency Frequency: 1x/Week Duration: 2-4 Months - Prognosis Prognosis: Good - Goals that are Established: Determination:: Goals will be added/modified as deemed necessary and appropriate. Therapy will be discontinued when results of re-evaluation indicate therapy is no longer needed or lack of progress has been documented. - Goal #1-5 Goal #1: To complete any needed cognitive testing in order to establish a treatment plan that will address the patient's cognitive deficits and allow her to complete tasks that will allow her to run her household in her daily living environment. Goal #2: Therapy is to focus on patient developing strategies to complete executive function skills which will include organization, scheduling sequencing and problem solving in order to complete tasks in her daily living environment. Education - Patient has Indicated that the Following Identified Educational Needs: None The Patient has indicated that they have no educational or learning abilities that may effect their care.: Yes - Patient Instruction Patient Education: Treatment Plan Person Taught: Patient Teaching Method: Discussion Response to teaching: Verbalize understanding <Electronically signed by Lani Baltazar M.S. [facility]> 11/03/18 1435 CC: Kaden Robles MD; Jose Robertson MD BL Signed OPERATIVE REPORT Observed: 10/31/2018 Status: F Source: [place] 1:15 PM [facility] REPOSITORY [facility] Medical Records Department [address] [place] [address] Operative Report 10/25/18 1147 MR#: [id number] Acct: [id number] Name: GAIL LACEY Rep #: [id number] : 1985 33 From: Evangelist Moseley MD PCP: Kaden Robles MD Status: DEP [facility] [place] [facility] Problem List (1) Encounter for adjustment or management of vascular access device Status: Acute Report of Operation Date of Procedure: 10/25/18 Pre-Operative Diagnosis: Vascular catheter fitting or adjustment Post-Operative Diagnosis: Same Surgery/Procedure Performed:: Removal of a right subclavian PowerPort Type of Anesthesia:: Local MAC Anesthesiologist: Isac Bryant Estimated Blood Loss (mL): < 25 cc Description of Procedure: Patient was brought into the operating. Placed in the supine position. The right shoulder area and chest area was sterilely prepped and draped in usual fashion. Local was injected. I opened up her old incision and used electrocautery to get down to the pocket which was extremely deep in the left upper quadrant of her chest area. I was able to identify the catheter pulled this out of the subclavian vein without difficulty it was entirely intact and I was able to read all the numbers on it. I then remove the port from the pocket created with a scalpel this was an old PowerPort and all of the openings had scarred into the chest wall area. I was able to use electrocautery to obtain good hemostasis and the port eventually did come out. I am very glad that I decided to do this in the OR since it was extremely deep and I needed electrocautery to obtain the good hemostasis. Once I had good hemostasis I then brought the wound together with interrupted sutures in a deep dermal fashion of 3-0 Vicryl. Steri-Strips were applied sterile dressings were applied and the patient tolerated the procedure well. We will place sandbag on the chest area for approximately an hour to ensure good hemostasis. - Admit VTE Documentation VTE Present on Admission: No VTE Mechan Device Prophylaxis: SCD's VTE Pharm Prophylaxis ordered?: No Reason prophylaxis not ordered:: Treatment Not Indicated 10/31/18 1312 <Electronically signed by Evangelist Moseley MD> Date Evangelist Moseley MD CC: Kaden Robles MD; Evangelist Moseley MD Signed MISCELLANEOUS SPECIMEN Observed: 10/25/2018 Status: F Source: [place] 12:15 PM [facility] REPOSITORY Patient: GAIL LACEY : 1985 (33/F) Acct Num: [id number] Phys: Lorelei TREVIZO,Evangelist Unit Num: [id number] Loc: [facility] Specimen: [id number] Received: 10/25/18 - 1 Spec [facility] TISSUES: NO TISSUE GROSS DESCRIPTION Received is one container labeled with the patient's name and not further designated. The specimen consists of a purple triangular synthetic port measuring 2.5 x 2 x 1.2 cm. Minute fragments of soft tissue are adherent to the port measuring in aggregate 1 x 0.5 x 0.2 cm. Also present in the specimen container is a blue plastic/synthetic tube measuring 18 cm in length. No breaks or tears are identified in either synthetic fragment. The soft tissue is submitted in one cassette. / AM:sharon 10/25/18 TC:5 CPT: 66949, 25582 HEADER OPERATION: Port removal PRE-OP DIAGNOSIS: Vascular catheter fitting or adjustment TISSUE SUBMITTED: Right chest vascular port MICROSCOPIC DESCRIPTION Slides are reviewed. MICROSCOPIC DIAGNOSIS Right chest vascular port: Consistent with vascular port (gross only). A piece of fibroadipose and fibroconnective tissue with mild chronic inflammation, histiocytic reaction and reactive changes. SJ:sharon 10/26/18 Signed Zaheer Moura MD 10/26/18 <signature on file> Performed By: #### PMISC #### [facility] [address] [place] [address] [place], [address] DISCHARGE INSTRUCTION Observed: 10/25/2018 Status: F Source: [place] 11:49 AM [facility] REPOSITORY [facility] Medical Records Department [address] [place] [address] Instructions for Home/Discharge Instructions 10/25/18 1148 MR#: [id number] Acct: [id number] Name: GAIL LACEY Rep #: [id number] : 1985 33 From: Evangelist Moseley MD PCP: Kaden Robles MD Status: REG [facility] Discharge Diet: No Restrictions - Pain medication may cause nausea. You should typically eat light foods as you take your pain medication. Discharge Activity: May Shower - with the bandage in place 1-2 days after surgery. DO NOT SHOWER WHEN YOUR PORT IS ACCESSED. Additional Activity Instructions:: May not drive, work with heavy equipment, or sign legal documents for [address] if you are no longer taking narcotic pain medications. You may drive when you are no longer taking pain medications. Additional Dressing/Incision Instructions:: Leave the bandage on for 2-3 days. When you remove the bandage, leave the steri-strips intact until they fall off. Allergies/Adverse Reactions: Allergies hydromorphone [From Dilaudid] Allergy (Severe, Verified 10/24/18 08:57) Laryngospasms morphine Allergy (Severe, Verified 10/24/18 08:57) chest tightening TAPE Adverse Reaction (Mild, Uncoded 10/24/18 08:57) Other Medications to take at Discharge armodafinil 50 mg tablet 50 mg PO QAM 08/26/18 Levothyroxine Sodium [Synthroid] 25 mcg PO MOTUWETHFRSA 09/12/18 Dextroamphetamine Sulfate [Dextroamphetamine Sulfate ER] 15 mg PO BID 09/14/18 Digestive 8/L.acidoph/Pectin [Digestive Enzymes Tablet] 1 ea PO BID 09/20/18 Iron Polysaccharide Complex [Ferrex 150] 150 mg PO DAILYCM 09/20/18 L.acidoph,Paracasei, B.lactis [Probiotic] 1 ea PO DAILY 09/20/18 Multivitamin [Multiple Vitamins] 1 ea PO DAILY 09/20/18 diazepam 5 mg tablet 5 mg PO 4X/DAY PRN #30 tab 10/05/18 oxycodone-acetaminophen 5 mg-325 mg tablet 1 tab PO Q8H PRN 7 Days #20 tab 10/21/18 Oxycodone HCl/Acetaminophen [Percocet 5/325] 1 - 2 tab PO Q4H PRN PRN 5 Days #14 tab 10/25/18 The following prescriptions were given: Oxycodone HCl/Acetaminophen [Percocet 5/325] 1 - 2 tab PO Q4H PRN PRN 5 Days #14 tab PRN Reason: Pain Primary Care Physician: Kaden Robles MD [Primary Care Provider] - Test Results: Test results from this visit will be discussed in further detail at your follow-up appointment, if applicable. Please Follow Up With: Evangelist Moseley MD - [phone] When: Please plan to follow up in 7 days in the office. 10/25/18 1149 <Electronically signed by Evangelist Moseley MD> Date Evangelist Moseley MD CC: Kaden Robles MD Signed ,URINE Collected: 10/25/2018 Status: F Source: [place] 10:32 AM [facility] REPOSITORY TYPE CODE TESTS RESULT OUT OF REFERENCE UNITS RANGE LAB L400.8000 Negative Normal HCGUQUAL Negative Result Comment: Very dilute urine specimens, as indicated by a low specific gravity, may not contain assistance representative levels of hCG. If is still suspected, a first morning urine specimen should be collected 48 hours later and tested. Performed By: #### [id number] #### [facility] [address] [place], [address] PLASTIC SURGERY Observed: 10/19/2018 Status: F Source: [place] VISIT REPORT 9:07 AM [facility] REPOSITORY [facility] [address] [facility] [address] [place] [address] OFFICE VISIT Date of Service: 10/14/18 MR#: [id number] Acct: [id number] Name: GAIL LACEY Rep #: [id number] : 1985 Provider: Jose Robertson MD Age/Sex: 33/F Location: [facility] Status: Signed Intake Vital Signs10/14/18 Body Mass Index (BMI) 32.3 10/14/18 Weight: 203 lb 4 oz 10/14/18 Blood Pressure 125/90 H 10/14/18 Blood Pressure Location Rt brachial 10/14/18 Blood Pressure Position Sitting Intake Visit Reasons: post op surgery 09/27/18 Allergies hydromorphone [From Dilaudid] Allergy (Severe, Verified 10/17/18 13:02) Laryngospasms morphine Allergy (Severe, Verified 10/17/18 13:02) chest tightening TAPE Adverse Reaction (Mild, Uncoded 10/17/18 13:02) Other Medications armodafinil 50 mg tablet 50 mg PO QAM 08/26/18 [History Confirmed 10/17/18] Levothyroxine Sodium [Synthroid] 25 mcg PO MOTUWETHFRSA 09/12/18 [History Confirmed 10/17/18] Dextroamphetamine Sulfate [Dextroamphetamine Sulfate ER] 15 mg PO BID 09/14/18 [History Confirmed 10/17/18] Digestive 8/L.acidoph/Pectin [Digestive Enzymes Tablet] 1 ea PO BID 09/20/18 [History Confirmed 10/17/18] Iron Polysaccharide Complex [Ferrex 150] 150 mg PO DAILYCM 09/20/18 [History Confirmed 10/17/18] L.acidoph,Paracasei, B.lactis [Probiotic] 1 ea PO DAILY 09/20/18 [History Confirmed 10/17/18] Multivitamin [Multiple Vitamins] 1 ea PO DAILY 09/20/18 [History Confirmed 10/17/18] Diazepam [Valium] 4 - 8 mg PO 4X/DAY PRN PRN #40 tab 09/27/18 [Rx Confirmed 10/17/18] Docusate Sodium [Colace] 100 mg PO BID #60 cap 09/27/18 [Rx Confirmed 10/17/18] Ondansetron [Zofran] 8 mg PO TID PRN PRN #30 tab 09/27/18 [Rx Confirmed 10/17/18] diazepam 5 mg tablet 5 mg PO 4X/DAY PRN #30 tab 10/05/18 [Rx Confirmed 10/17/18] PFSH Medical History Anemia (Chronic) Anxiety (Chronic) [...] LATERAL BREAST (Acute) med port placement (Acute) [place] teeth extracted (Resolved) Family History Mother Psychiatric [...] EXPOSURE: RARELY - [place] HPI post op surgery 09/27/18: Details: Postop visit from her recent surgery on 09/27/18 where she underwent revision reconstructed left breast with excision painful soft tissue radionecrosis scar deformity and excision painful excess mastectomy skin scar contour deformity. Denies any complaints. On exam, incision is dry and intact. No clinical evidence of hematoma. No evidence of infection. Drainage has been less than 25 ml per day. Drain was removed today without difficulty. Pathology showed fibroadipose tissue and skeletal muscle tissue with focal fat necrosis, chronic inflammation and foreign body giant cell reaction. Operative culture was negative. Continue LONA wrap chest wall compression. Continue lifting restriction. Followup two weeks. Assessment AND Plan Problems 1. Cancer of left female breast C50.912 2. Disproportion of reconstructed breast N65.1 3. Deformity of reconstructed breast N65.0 4. Late effect of radiation T66.XXXS 5. 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 Pain of left breast N64.4 Coding Level of Care Code Global Post Op Diagnoses Cancer of left female breast C50.912 Disproportion of reconstructed breast N65.1 Deformity of reconstructed breast N65.0 Late effect of radiation T66.XXXS Acquired absence of left breast and nipple Z90.12 Pain of left breast N64.4 01/01/19 2106 <Electronically signed by Jose Robertson MD> Date Jose Robertson MD 10/19/18906<Electronically signed by Jazzy LARKIN> Cosigner Signature: Date (if applicable) Jazzy Palmer CC: SURGERY VISIT REPORT Observed: 10/17/2018 Status: F Source: [place] 1:46 PM [facility] REPOSITORY [facility] [address] [place] [address]. [address] [place] [address] OFFICE VISIT Date of Service: 10/17/18 MR#: [id number] Acct: [id number] Name: GAIL LACEY Rep #: [id number] : 1985 Provider: vEangelist Moseley MD Age/Sex: 33/F Location: [facility] Status: Signed Intake Vital Signs10/17/18 Body Mass Index (BMI) 32.3 Intake Visit Reasons: Port Removal Chief Complaint: Breast cancer follow-up Aged Or Disabled Carer Required: No Is patient in pain?: No Allergies hydromorphone [From Dilaudid] Allergy (Severe, Verified 10/17/18 13:02) Laryngospasms morphine Allergy (Severe, Verified 10/17/18 13:02) chest tightening TAPE Adverse Reaction (Mild, Uncoded 10/17/18 13:02) Other Medications armodafinil 50 mg tablet 50 mg PO QAM 08/26/18 [History Confirmed 10/17/18] Levothyroxine Sodium [Synthroid] 25 mcg PO MOTUWETHFRSA 09/12/18 [History Confirmed 10/17/18] Dextroamphetamine Sulfate [Dextroamphetamine Sulfate ER] 15 mg PO BID 09/14/18 [History Confirmed 10/17/18] Digestive 8/L.acidoph/Pectin [Digestive Enzymes Tablet] 1 ea PO BID 09/20/18 [History Confirmed 10/17/18] Iron Polysaccharide Complex [Ferrex 150] 150 mg PO DAILYCM 09/20/18 [History Confirmed 10/17/18] L.acidoph,Paracasei, B.lactis [Probiotic] 1 ea PO DAILY 09/20/18 [History Confirmed 10/17/18] Multivitamin [Multiple Vitamins] 1 ea PO DAILY 09/20/18 [History Confirmed 10/17/18] Diazepam [Valium] 4 - 8 mg PO 4X/DAY PRN PRN #40 tab 09/27/18 [Rx Confirmed 10/17/18] Docusate Sodium [Colace] 100 mg PO BID #60 cap 09/27/18 [Rx Confirmed 10/17/18] Ondansetron [Zofran] 8 mg PO TID PRN PRN #30 tab 09/27/18 [Rx Confirmed 10/17/18] diazepam 5 mg tablet 5 mg PO 4X/DAY PRN #30 tab 10/05/18 [Rx Confirmed 10/17/18] PFSH Medical History Anemia (Chronic) Anxiety (Chronic) [...] LATERAL BREAST (Acute) med port placement (Acute) [place] teeth extracted (Resolved) Family History Mother Psychiatric [...] HPI HPI HPI: GAIL LACEY, is a 33 F who presents to the office today for for evaluation of removal of a right subclavian PowerPort. Patient had a subclavian PowerPort placed in May 11, [address] Wally Gloria from [facility] in reading his op note it was a very difficult stick to get it in and he sutured this all the way down to the pectoralis major muscle. Patient informs me that she had a difficult time using the port and needed to use an extra long needle most of the time just to gain access to it. Exam Chest Other: Patient has an incision in the upper outer quadrant of the right chest area. This port goes down significantly into and near the pectoralis major muscle and is not easily seen but it is palpable but only to deep palpation Office Procedures Procedure Time Out Time Out Informed consent given: Yes Consent signed: Yes Time out checklist: patient, procedure, site marked/identified, positioning of patient, supplies available, allergies confirmed, team agrees on procedure Time out staff in room: Yes Time out verified: Yes Time out date: 10/17/18 Time out time: 13:02 Assessment AND Plan Problems 1. Vascular catheter fitting or adjustment Z45.2 Plan I do not think this is an appropriate office procedure. His port goes down on the way to the pectoralis major muscle I am afraid that if I get in the bleeding I am not going to be able to control very easily here in the office. I do not put this port in which makes me also a little bit more leery of how it was actually going into the subclavian vein Patient is obviously extremely upset with my determining that this was not a good office procedure for me. We discussed this and she is going to register complaint. She seems to be over concerned about finances in this situation and hopefully something can be done with regards to the hospital for this. I also thought that she might be able to give Dr. Wally Gloria a call and he may feel more comfortable taking out the port since he was the one that actually put in the port once again she also emphasized the finances and still has the issue of potential risk of the procedure. This is been a big inconvenience for the patient for which I feel very sorry for. However I am going to stick to my guns here and I feel that this is going to be a safer procedure for me to do in the operating room with appropriate lighting and extra hands them for me to take it out in the office which I do not feel is a safe procedure for me to do today. We discussed the risks and benefits of the planned procedure. I have informed the patient that complications can occur including failure to complete the procedure. The patient had the opportunity to ask questions concerning the planned procedure. My staff has also explained the procedure to the patient in understandable terms and has given the patient printed material concerning the procedure. The patient freely consents to the procedure. Coding Level of Care Code No Charge Diagnoses Vascular catheter fitting or adjustment Z45.2 10/17/18 1346 <Electronically signed by Evangelist Moseley MD> Date Evangelist Moseley MD Cosign Signature: Date (if applicable) CC: OPERATIVE REPORT Observed: 10/03/2018 Status: F Source: [place] 4:17 PM [facility] REPOSITORY [facility] Medical Records Department [address] [place] [address] Operative Report 09/28/181945 MR#: [id number] Acct: [id number] Name: GAIL LACEY Rep #: [id number] : 1985 33 From: Jose Robertson MD PCP: Kaden Robles MD Status: DEP [facility] [place] [facility] Report of Operation Date of Procedure: 09/27/18 [...] were included in a form from the [place] [employer]. I used Pola absorbable hemostat, (I used 2 vials). Reference Number - [id number]. Lot Number - [id number]. Expiration - May 14, 2023. global consumer sector vice president: Basilia Andrew. Type of Anesthesia:: General Specimen's [...] No Code Visit Surgery Charges CPT - 72791 ICD-10 - C50.912, N65.1, N65.0, T66.xxxS, Z90.12, N64.4 10/03/18 1617 <Electronically signed by Jose Robertson MD> Date Jose Robertson MD CC: Kaden Robles MD; Jose Robertson MD Signed HISTORY AND PHYSICAL Observed: 09/28/2018 Status: F Source: [place] EXAM 10:47 PM [facility] REPOSITORY [facility] Medical Records Department [address] [place] [address] History and Physical 09/26/18 2350 MR#: [id number] Acct: [id number] Name: GAIL LACEY Rep #: [id number] : 1985 33 From: Jose Robertson MD PCP: Kaden Robles MD Status: [facility] Y Location[place] [facility] History and Physical Date of Admission: 09/27/18 [...] breast Chemotherapy induced neutropenia PAST SURGICAL HISTORY: [place] teeth 2003 all 4 [place] 2008 Partial Mastectomy 04/06/17 - getting chemotherapy and will follow with radiation therapy Port Placement 05/03 Hospital-Febrile Neutropenia discharged 07/14/17 Occasional psychiatric hospitalized [id number] surgical preparation left lateral breast with incision [...] DISCHARGE INSTRUCTION Observed: 09/27/2018 Status: F Source: [place] 10:19 AM [facility] Medical Records Department [address] [place] [address] Instructions for Home/Discharge Instructions 09/27/18 1015 MR#: [id number] Acct: [id number] Name: GAIL LACEY Rep #: [id number] : 1985 33 From: Jose Robertson MD PCP: Kaden Robles MD Status: REG [facility] You will use the following diet at [...] Jose Robertson MD When: one week. call [phone] for appt. Proposed Discharge Date: 09/27/18 09/27/18 1019 <Electronically signed by Jose Robertson MD> Date Jose Robertson MD CC: Kaden Robles MD Observed: 09/27/2018 Status: F Source: [place] CULTURE, DEEP WOUND 9:30 AM [facility] REPOSITORY Order Date: 05/19/17 List Antibiotics Last 48 Hours? UNASYN Has pt arrived? Y Comments: LEFT BREAST TISSUE Gram Stain Gram Stain 4+ Red Blood Cells Rare White Blood Cells No organisms seen Wound Culture No growth aerobically. Cult, Anaerobic No growth in 5 days. Performed By: #### M100.1500 #### [facility] [address] [place], [address] Observed: 09/27/2018 Status: F Source: [place] CULTURE, FUNGUS W/ 9:30 AM [id number] REPOSITORY Comments: LEFT BREAST TISSUE Has pt arrived? Y Is this test to exclude patient from TB Isolation? N Cu,Xgohbt0412 TESTING PERFORMED AT [facility]. ORIGINAL REPORT ON FILE IN LAB CONTAINS ADDITIONAL TEST SITE INFORMATION. CUF No yeast or mold isolated after [address] TESTING PERFORMED AT [facility]. ORIGINAL REPORT ON FILE IN LAB CONTAINS ADDITIONAL TEST SITE INFORMATION. Fungus Stain No yeast or mold observed. Performed By: #### M600.1900 #### [facility] [address] [place], [place] [address]mir[place]. [place], [place], [address] ,URINE Collected: 09/27/2018 Status: F Source: [place] 7:00 AM [facility] REPOSITORY TYPE CODE TESTS RESULT OUT OF REFERENCE UNITS RANGE LAB L400.8000 Negative Normal HCGUQUAL Negative Result Comment: Very dilute urine specimens, as indicated by a low specific gravity, may not contain assistance representative levels of hCG. If is still suspected, a first morning urine specimen should be collected 48 hours later and tested. Performed By: #### L400.7600 #### [facility] [address] [place], [place] [address], [address] BREAST BIOPSY Observed: 09/27/2018 Status: F Source: [place] (CHOOSE SITE) 12:00 AM [facility] REPOSITORY Patient: GAIL LACEY : 1985 (33/F) Acct Num: [id number] Phys: Jose Robertson MD Unit Num: [id number] Loc: [facility] Specimen: [id number] Received: 09/27/18 - 1326 Spec Type: BREAST BX TISSUES 1 TISSUES: [...] Sections do not reveal any mass lesion. Neon Sign Erector sections are submitted in four cassettes. Cassette 1 also contains the skin piece. / RO:sharon 09/28/18 TC:5 CPT: 49871 HEADER OPERATION: Revision reconstructed breast with excision [...] on file> Performed By: #### PBRBX #### [facility] [address] [facility] [place], [address] ONC ECHOCARDIOGRAM Observed: 09/26/2018 Status: F Source: [place] COMPLETE 5:00 PM [facility] REPOSITORY [facility] Cardiovascular Services [address] [place] [address] ONC Echo Complete 09/26/18 1304 MR#: [id number] Acct: [id number] Name: GAIL LACEY Rep #: [id number] : 1985 33 From: Francisco Restrepo MD Attending Dr: Owen Edouard MD Status: REG CLI Ordering Dr: Owen Edouard MD Date: 09/26/18 Location: [facility] Sex: F C Admitted: Version 2 Reason [...] Referring Physician: Kaden Robles Performed By: Gaye Serna, RDCS 09/26/18 1701 Date Francisco Restrepo MD CC: Kaden Robles MD; Owen Edouard MD Date Dictated: 09/26/18 1304 Date Transcribed: 09/26/181699 Asp Net Programmer: Signed OT GENERAL EVALUATION Observed: 09/21/2018 Status: F Source: [place] 3:02 PM [facility] REPOSITORY [facility] [address] [place] [address] Fax REHABILITATION SERVICES INITIAL EVALUATION MR#: [id number] Acct: [id number] Name: GAIL LACEY Rep #: [id number] : 1985 33 From: Randi DUARTE/QASIM Llanes Referring Dr.: Jose Robertson MD Status: REG R Insurance: [employer] Date: SELF PAY INSURANCE Patient's Visit Information GAIL LACEY is a 33 year old F, referred to Occupational Therapy by Jose Robertson, with a diagnosis of breast cancer. Date of Evaluation: 09/15/18 Occupational Therapist: GERALD Montoya/QASIM Llanes - Subjective Subjective: Diagnosed with breast cancer [...] states she has difficulty with energy levels. Sep. pt to have sx- of left side [...] to be FAXED BACK to us at [phone] for Medicare purposes. Please let me know if there are questions or concerns regarding this plan of care. Physician Signature: Date: <Electronically signed by Randi PITTS CHT> 09/21/18 1502 CC: Kaden Robles MD; Jose Robertson MD MK Signed For Medicare only, by signing this I certify the plan of care. Physicians Signature Date DISCHARGE INSTRUCTION Observed: 09/14/2018 Status: F Source: [place] 9:43 PM [facility] REPOSITORY [facility] Medical Records Department [address] [facility] [place] [address] Discharge Instruction 09/14/182141 MR#: [id number] Acct: [id number] Name: GAIL LACEY Rep #: [id number] : 1985 33 From: Hannah Wasserman DO [...] your Primary Care Provider. Call [facility] ([phone]) or report to the closest Emergency Room. Call 911 if necessary. 09/14/182142 <Electronically signed by Hannah Wasserman DO> Date Hannah Wasserman DO Cosigner Signature (If Indicated): Date CC: Kaden Robles MD EMERGENCY DEPARTMENT Observed: 09/14/2018 Status: F Source: [place] SUMMARY 9:42 PM [facility] REPOSITORY [facility] Medical Records Department [address] [place] [address] Emergency Department Summary 09/14/188 MR#: [id number] Acct: [id number] Name: GAIL LACEY Rep #: [id number] : 1985 33 From: Hannah Wasserman DO [...] [Cataplexy Anxiety] This note was generated with Docination software. It may contain incorrect words, spelling, [...] your Primary Care Provider. Call [facility] ([phone]) or report to the closest Emergency Room. Call 911 if necessary. 09/14/182141 <Electronically signed by Hannah Wasserman DO> Date Hannah Wasserman DO Cosigner Signature (If Indicated): Date CC: Kaden Robles MD CBC W/DIFF, AUTOMATED Collected: 09/14/2018 Status: F Source: [place] 8:50 PM [facility] REPOSITORY TYPE CODE TESTS RESULT OUT OF [...] Lymph 1.82 Performed By: #### L100.0100 #### [facility] [address] [facility]. [place], [place], [address] BASIC METABOLIC Collected: 09/14/2018 Status: F Source: [place] PROFILE (BMP) 8:50 PM [facility] REPOSITORY TYPE CODE TESTS RESULT OUT OF [...] Normal 8 Performed By: #### L500.2500 #### [facility] [address] [place], [place], [address] D-DIMER QUANTITATIVE Collected: 09/14/2018 Status: F Source: [place] (DVT/PE) 8:50 PM [facility] REPOSITORY TYPE CODE TESTS RESULT OUT OF RANGE REFERENCE UNITS LAB L300.8000 0.27-0.49 FEU/ug/m Low D-DIMER < 0.27 QUANT Result Comment: NORMAL D-Dimer level (<0.50) indicates no DVT or PE. NORMAL D-Dimer level (<0.50) indicates no DVT or PE. Performed By: #### L300.8000 #### [facility] [address] [place], [place], [address] RE-EVALUATION - PT (1) Observed: 09/13/2018 Status: F Source: [place] 2:35 PM [facility] REPOSITORY [facility] [address] [place] [address]. [address] [place], [place] [address] Fax REEVALUATION / MEDICARE RECERTIFICATION PHYSICAL THERAPY MR#: [id number] Acct: [id number] Name: GAIL LACEY Rep #: [id number] : 1985 33 From: Marian Jensen DPT [...] do not hesitate to contact me at [phone] by phone or if you have questions or concerns regarding this new plan of care! Sincerely, Marian Jensen <Electronically signed by Marian Jensen DPT> 09/13/18 4745 CC: Kaden Robles MD; Jose Robertson MD ELR Signed For Medicare only, by signing this I certify the plan of care. Physicians Signature Date OFFICE VISIT REPORT Observed: 09/12/2018 Status: F Source: [place] 2:47 PM [place] [address] [address] OFFICE VISIT Date of Service: 09/12/18 MR#: [id number] Acct: [id number] Patient: GAIL LACEY Rep #: [id number] : 1985 Provider: Carolyn Be NP Age/Sex: 33/F [place] [facility] Status: Signed Intake Vital Signs09/12/18 Height 5 ft 8 in 09/12/18 Weight: 212 lb 8 oz 09/12/18 Body Mass Index (BMI) 32.3 09/12/18 Blood Pressure 121/88 H 09/12/18 Blood Pressure Location Rt popliteal 09/12/18 Blood Pressure Position Sitting Intake Visit Reasons: Follow up Aged Or Disabled Carer Required: No Accompanied by: Self Allergies hydromorphone [From Dilaudid] Allergy (Severe, Verified 09/12/18 11:10) Laryngospasms morphine Allergy (Severe, Verified 09/12/18 11:10) chest tightening TAPE Adverse Reaction (Mild, Uncoded 09/12/18 09:04) Other Medications armodafinil 50 mg tablet 150 mg PO QAM 08/26/18 [History Confirmed 09/12/18] Levothyroxine Sodium [Synthroid] 25 mcg PO DAILY 09/12/18 [History Confirmed 09/12/18] [facility] Medical History Anemia (Chronic) Anxiety (Chronic) Asthma [...] LATERAL BREAST (Acute) med port placement (Acute) [place] teeth extracted (Resolved) Family History Mother Psychiatric [...] Appearance: well nourished, overweight Orientation: oriented x3 [facility] Head: normal to inspection, atraumatic Ears: hearing [...] vis,est,level 3 Diagnoses Acquired hypothyroidism E03.9 09/12/18 1447 <Electronically signed by Carolyn LARKIN> Date Carolyn LARKIN Cosigner Signature: Date (if applicable) CC: ONCOLOGY VISIT REPORT Observed: 09/12/2018 Status: F Source: [place] 11:31 AM [facility] REPOSITORY [facility] [address] [place] [address] OFFICE VISIT Date of Service: 09/12/18 1112 MR#: [id number] Acct: [id number] Name: GAIL LACEY Rep #: [id number] : 1985 From: Owen Edouard MD Age/Sex: [...] diameter poorly differentiated, grade 3, ER negative, MN weak positive, Her- 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 Margins were negative for both invasive and noninvasive cancer. Patient started systemic adjuvant therapy under the care of in [facility] on May 18, 2017. She received her [...] 09, 2017 wishing to transfer care to [place] for proximity to residence. Treatment: - April 06, 2017 left partial mastectomy - [facility] X6 cycles -08/2017- (delays due to delayed wound healing, cytopenias and febrile neutropenia). - Herceptin maintenance 10/04/2017-05/23/2018 (Concluded 1Y) - Tamoxifen October-March 2018 then stopped (wishing to have more children if possible, disease is ER negative, MN weak positive) - Adjuvant radiation therapy; 4256 cGy of mixed 6, 10, and 15 MV photons in 16 fractions to the left breast with a 3D conformal technique consisting of SAO TOMEAN, LPO, and MONTERO carmen with field and field to improve dose homogeneity. A sequential boost consisting of 1000 cGy of mixed 10 and 15 MV photon in 4 fractions was delivered to the lumpectomy bed with a 3D conformal technique consisting of SAO TOMEAN and LPO carmen. This brought the total [...] (T1c, N0, M0) high-grade G3, ER negative, MN weak positive, HER-2 positive. Patient is status [...] have more children, disease is ER negative MN weakly positive and therefore the added benefit [...] 09/12/2018 Status: F Source: [place] 10:29 AM [facility] REPOSITORY TYPE CODE TESTS RESULT OUT OF [...] Lymph 1.25 Performed By: #### L100.0100 #### [facility] [address] [place], [address] COMPREHENSIVE METABOLIC Collected: 09/12/2018 Status: F Source: [facility] 10:29 AM [facility] REPOSITORY TYPE CODE TESTS RESULT OUT OF [...] 6 Performed By: #### L500.4050, L500.4100 #### [facility] [address] [place], [place], [address] LIPID PROFILE Collected: 09/12/2018 Status: F Source: [place] 10:29 AM [facility] REPOSITORY TYPE CODE TESTS RESULT OUT OF [...] 20 Performed By: #### L500.4050, L500.4100 #### [facility] [address] [place], [place], [address] FREE T3 Collected: 09/12/2018 Status: F Source: [place] 10:26 AM [facility] REPOSITORY TYPE CODE TESTS RESULT OUT OF RANGE REFERENCE UNITS LAB L501.85819 2.18-3.98 pg/mL Normal FREE T3 3.1 Performed By: #### L501.16409, L501.9520, L506.0400 #### [facility] [address] [place], [address] THYROID STIM HORMONE Collected: 09/12/2018 Status: F Source: [place] (TSH) 10:26 AM [facility] REPOSITORY TYPE CODE TESTS RESULT OUT OF RANGE REFERENCE UNITS LAB L501.9520 0.358-3.74 uIU/mL High TSH 3.95 Performed By: #### L501.59214, L501.9520, L506.0400 #### [facility] [address] [facility] [place], [address] T4 FREE DIRECT Collected: 09/12/2018 Status: F Source: [place] 10:26 AM [facility] REPOSITORY TYPE CODE TESTS RESULT OUT OF RANGE REFERENCE UNITS LAB L506.0400 0.76-1.46 ng/dL Normal T4 FREE 1.03 DIRECT Performed By: #### L501.18839, L501.9520, L506.0400 #### [facility] [address] [facility] [place], [address] CBC W/DIFF, AUTOMATED Collected: 09/05/2018 Status: F Source: [place] 3:41 PM [facility] REPOSITORY Order Comment: Reason for Laboratory Test [...] Lymph 1.36 Performed By: #### L100.0100 #### [facility] [address] [place], [place], [address] COMPREHENSIVE METABOLIC Collected: 09/05/2018 Status: F Source: [facility] 3:41 PM [facility] REPOSITORY Order Comment: Reason for Laboratory Test [...] Normal GAP 7 Performed By: #### L500.4050, L503.6030, L503.6550 #### [facility] [address] [place], [place], [address] IRON+IRON BINDING Collected: 09/05/2018 Status: F Source: [place] CAPACITY 3:41 PM [facility] REPOSITORY Order Comment: Reason for Laboratory Test PRE-CHEMO TYPE CODE TESTS RESULT OUT OF RANGE REFERENCE UNITS LAB L503.6075 250-450 ug/dL TIBC Normal 361 LAB L503.6150 50-170 ug/dL IRON Normal 52 LAB L503.6250 15.0-55.0 % Low IRON SATURATION 14.4 Performed By: #### L500.4050, L503.6030, L503.6550 #### [facility] [address] [place], [address] FERRITIN Collected: 09/05/2018 Status: F Source: [place] 3:41 PM [facility] REPOSITORY Order Comment: Reason for Laboratory Test PRE-CHEMO TYPE CODE TESTS RESULT OUT OF RANGE REFERENCE UNITS LAB L503.6550 8-252 ng/mL Normal FERRITIN 41 Performed By: #### L500.4050, L503.6030, L503.6550 #### [place] [facility] [address] [place], [address] INTERNAL MEDICINE Observed: 08/29/2018 Status: F Source: [place] OFFICE VISIT 4:29 PM [facility] REPOSITORY [facility] [address] [place] [address] OFFICE VISIT Date of Service: 08/26/18 MR#: [id number] Acct: [id number] Name: GAIL LACEY Rep #: [id number] : 1985 Provider: Orlando Kumar MD Age/Sex: 33/F Location: [facility] Status: Signed Intake Vital Signs08/26/18 Height 5 [...] LATERAL BREAST (Acute) med port placement (Acute) [place] teeth extracted (Resolved) Family History Mother Psychiatric [...] acute distress Orientation: alert, awake, oriented x3 [facility] Head: atraumatic, normocephalic, normal to inspection Ears: [...] with results. This note was generated with [email or web address] dictation software. It may contain incorrect words, spelling, and punctuation that were not noted in checking the note before signing. Orders Orders: Plan Detail Other Orders Orders: Coding Level of Care Code Off vis,est,level 4 Diagnoses Intermittent epigastric abdominal pain R10.13 Tachycardia R00.0 Anemia D64.9 Hypothyroidism, unspecified type E03.9 Hypothyroidism type: unspecified 08/29/18 0139 <Electronically signed by Orlando Kumar MD> Date Orlando Kuamr MD Cosigner Signature: Date (if applicable) CC: PLASTIC SURGERY Observed: 08/17/2018 Status: F Source: [place] VISIT REPORT 10:13 PM [facility] REPOSITORY [facility] [address] [facility] [address] [place] [address] OFFICE VISIT Date of Service: 08/17/18 MR#: [id number] Acct: [id number] Name: GAIL LACEY Rep #: [id number] : 1985 Provider: Jose Robertson MD Age/Sex: 33/F Location: [facility] Status: Signed Intake Vital Signs08/17/18 Blood Pressure 127/88 H 08/17/18 Blood Pressure Location Rt brachial 08/17/18 Blood Pressure Position Sitting 08/17/18 Respiratory Rate 18 08/17/18 Pulse Rate 104 H Intake Visit Reasons: postop surgery 06/24/18 Aged Or Disabled Carer Required: No Accompanied by: Family / Other [...] Thyroid disease (Acute) Vitamin D deficiency (Acute) [place] teeth extracted (Acute) Surgical History H/O total [...] care related to vascular access port Z45.2 08/17/183 <Electronically signed by Jose Robertson MD> Date Jose Robertson MD Cosigner Signature: Date (if applicable) CC: URGENT CARE VISIT Observed: 08/16/2018 Status: F Source: [place] REPORT 3:08 PM [facility] REPOSITORY [facility] [address] [place] [address] [address] [place] [address] OFFICE VISIT Date of Service: 08/16/18 MR#: [id number] Acct: [id number] Name: GAIL LACEY Rep #: [id number] : 1985 Provider: Jacques FRANCO Age/Sex: 33/F [place] [facility] Status: Signed Intake Vital Signs08/16/18 Height 5 [...] Thyroid disease (Acute) Vitamin D deficiency (Acute) [place] teeth extracted (Acute) Surgical History H/O total [...] fatigue Exam Const General: cooperative, healthy appearing [facility] Head: normocephalic, atraumatic Ears: hearing grossly normal [...] signed by Jacques FRANCO> Date Jacques FRANCO Cosigner Signature: Date (if applicable) CC: ABDOMEN LIMITED Observed: 08/16/2018 Status: F Source: [place] 11:09 AM [facility] REPOSITORY [facility] Imaging Services [address] [place] [address] Abdomen Limited MR#: [id number] Acct: [id number] Name: GAIL LACEY Rep #: [id number] : 1985 F 33 From: Lupillo Samuel MD PCP: Kaden Robles MD Status: REG CLI Study: Abdomen Limited Date of Exam: 08/16/18 Exam# [id number] Ordering Dr: Jacques Cheatham STUDY: ABDOMINAL ULTRASOUND [...] Lupillo Samuel MD at 12:21 EDT Tel [phone], Service support , CC: Kaden Robles MD; Jacques FRANCO Asp Net Programmer: Signed INITAL EVALUATION (1) Observed: 08/12/2018 Status: F Source: [place] - PT 9:29 AM [facility] REPOSITORY [facility] [address] [place] [address] Fax REHABILITATION SERVICES INITIAL EVALUATION MR#: [id number] Acct: [id number] Name: GAIL LACEY Rep #: [id number] : 1985 33 From: Marian Jensen DPT Referring Dr.: Jose Robertson MD Status: REG RCR Insurance: [employer] SELF PAY INSURANCE Patient's Visit Information GAIL [...] to be FAXED BACK to us at [phone] for Medicare purposes. Please let me know if there are questions or concerns regarding this plan of care. Physician Signature: Date: <Electronically signed by Marian Jensen DPT> 08/12/18 0929 CC: Kaden Robles MD; Jose Robertson MD ELR Signed For Medicare only, by signing this I certify the plan of care. Physicians Signature Date PLASTIC SURGERY Observed: 08/05/2018 Status: F Source: [place] VISIT REPORT 2:08 PM [facility] REPOSITORY [facility] [address] [place] [address] OFFICE VISIT Date of Service: 08/03/18 MR#: [id number] Acct: [id number] Name: JOANGAIL CLAROS Jordan Rep #: [id number] : 1985 Provider: TRAE Palmer Age/Sex: 33/F Location[place] [facility] Status: Signed Intake Vital Signs08/03/18 Height 5 ft 8 in 08/03/18 Weight: 215 lb 2 oz Intake Visit Reasons: postop surgery 06/24/18 Aged Or Disabled Carer Required: No Accompanied by: None Is patient [...] Thyroid disease (Acute) Vitamin D deficiency (Acute) [place] teeth extracted (Acute) Surgical History H/O total [...] 08/05/18 1408 <Electronically signed by Jazzy Palmer NP-C> Date Jazzy Palmer [facility] [facility] ATTENDANT-C 08/03/18 1727<Electronically signed by Joes Robertson MD> Cosigner Signature: Date (if applicable) Jose Robertson MD CC: PROGRESS Observed: 07/26/2018 Status: COMPLETED Source: [place] 2:36 PM CLINIC OTHER CAMPUS REPOSITORY O ID: [id number] Author: Judy Solares Service: (none) Author Type: [...] PLASTIC SURGERY Observed: 07/21/2018 Status: F Source: [place] VISIT REPORT 1:17 PM [facility] REPOSITORY [facility] [address] [facility] [address] [place] [address] OFFICE VISIT Date of Service: 07/20/18 MR#: [id number] Acct: [id number] Name: GAIL LACEY Rep #: [id number] : 1985 Provider: TRAE Palmer Age/Sex: 33/F Location: [facility] Status: Signed Intake Vital Signs07/20/18 Blood Pressure 117/88 H 07/20/18 Blood Pressure Location Rt brachial 07/20/18 Blood Pressure Position Sitting 07/20/18 Respiratory Rate 16 Intake Visit Reasons: postop surgery 06/24/18 Aged Or Disabled Carer Required: No Accompanied by: None Is patient [...] Thyroid disease (Acute) Vitamin D deficiency (Acute) [place] teeth extracted (Acute) Surgical History H/O total [...] N64.4 07/21/18 1317 <Electronically signed by Jazzy BELTRANC> Date Jazzy Palmer NP-C 07/20/18 2323<Electronically signed by Jose Robertson MD> Cosigner Signature: Date (if applicable) Jose Robertson MD CC: OFFICE VISIT REPORT Observed: 07/17/2018 Status: F Source: [place] 8:[address] [place] [address] OFFICE VISIT Date of Service: 07/11/18 MR#: [id number] Acct: [id number] Patient: GAIL LACEY Rep #: [id number] : 1985 Provider: Carolyn Be NP Age/Sex: 33/F [place] [facility]: Signed Intake Vital Signs07/11/18 Height 5 ft 8 in 07/11/18 Weight: 216 lb 4 oz 07/11/18 Body Mass Index (BMI) 32.8 07/11/18 Blood Pressure 108/70 07/11/18 Blood Pressure Location Rt popliteal 07/11/18 Blood Pressure Position Sitting Intake Visit Reasons: Thyroid dysfunction Aged Or Disabled Carer Required: No Accompanied by: Self Is patient [...] (Acute) SURGICAL PREPARATION LEFT LATERAL BREAST (Acute) [place] teeth extracted (Acute) med port placement (Acute) [...] and colleagues, with an educational alfredo from [employer]. Scoring: Total Score Depression Severity Action 1-4 [...] Appearance: well nourished, overweight Orientation: oriented x3 [facility] Head: normal to inspection, atraumatic Ears: hearing [...] PLASTIC SURGERY Observed: 07/15/2018 Status: F Source: [place] VISIT REPORT 4:26 PM [facility] REPOSITORY [facility] [address] [address] OFFICE VISIT Date of Service: 07/13/18 MR#: [id number] Acct: [id number] Name: GAIL LACEY Rep #: [id number] : 1985 Provider: TRAE Palmer Age/Sex: 33/F Location: [facility] Status: Signed Intake Vital Signs07/13/18 Respiratory Rate 18 07/13/18 Pulse Rate 105 H Intake Visit Reasons: postop surgery 06/24/18 Aged Or Disabled Carer Required: No Accompanied by: None Is patient [...] (Acute) SURGICAL PREPARATION LEFT LATERAL BREAST (Acute) [place] teeth extracted (Acute) med port placement (Acute) [...] N64.4 07/15/18 1626 <Electronically signed by Jazzy Palmer NP-C> Date Jazzy Palmer [facility] ATTENDANT-C 07/15/18 1501<Electronically signed by Jose Robertson MD> Cosigner Signature: Date (if applicable) Jose Robertson MD CC: OPERATIVE REPORT Observed: 07/12/2018 Status: F Source: [place] 2:52 PM [facility] REPOSITORY [facility] Medical Records Department [address] [place] [address] [place] [address] Operative Report 07/12/18 1425 MR#: [id number] Acct: [id number] Name: GAIL LACEY Rep #: [id number] : 1985 33 From: Saad Moran MD PCP: Kaden Robles MD Status: [facility] [place] Location: [place] [address] Problem List (1) Chronic serous otitis media [...] to the PACU in stable condition. 07/12/18 1452 <Electronically signed by Saad Moran MD> Date Saad Moran MD CC: Kaden Robles MD; Mario Moran MD Signed DISCHARGE INSTRUCTION Observed: 07/12/2018 Status: F Source: [place] 2:25 PM [facility] REPOSITORY [facility] Medical Records Department [address] [place] [address] Instructions for Home/Discharge Instructions 07/12/18 142 MR#: [id number] Acct: [id number] Name: GAIL LACEY Rep #: [id number] : 1985 33 From: Saad Moran MD PCP: Kaden Robles MD Status: [facility] You will use the following diet at [...] 07/12/2018 Status: F Source: [place] 12[facility]55 [facility] TYPE CODE TESTS RESULT OUT OF REFERENCE UNITS RANGE LAB L400.8000 Negative Normal HCGUQUAL Negative Result Comment: Very dilute urine specimens, as indicated by a low specific gravity, may not contain assistance representative levels of hCG. If is still suspected, a first morning urine specimen should be collected 48 hours later and tested. Performed By: #### L400.7600 #### [facility] [address] [facility] [place], [address] FREE T3 Collected: 07/11/2018 Status: F Source: [place] 1:07 PM [facility] REPOSITORY TYPE CODE TESTS RESULT OUT OF RANGE REFERENCE UNITS LAB L501.26763 2.18-3.98 pg/mL Normal FREE T3 3.0 Performed By: #### L501.14731, L501.9520, L506.0400 #### [facility] [address] [facility] [place], [address] THYROID STIM HORMONE Collected: 07/11/2018 Status: F Source: [place] (TSH) 1:07 PM [facility] REPOSITORY TYPE CODE TESTS RESULT OUT OF RANGE REFERENCE UNITS LAB L501.9520 0.358-3.74 uIU/mL High TSH 4.22 Performed By: #### L501.94626, L501.9520, L506.0400 #### [facility] [address] [facility] [place], [address] T4 FREE DIRECT Collected: 07/11/2018 Status: F Source: [place] 1:07 PM [facility] REPOSITORY TYPE CODE TESTS RESULT OUT OF RANGE REFERENCE UNITS LAB L506.0400 0.76-1.46 ng/dL Normal T4 FREE 1.06 DIRECT Performed By: #### L501.27880, L501.9520, L506.0400 #### [facility] [address] [place], [address] PELVIC (NON ) Observed: 07/11/2018 Status: F Source: [place] 8:39 AM [facility] REPOSITORY [facility] Imaging Services [address] [place] [address] [place] [address] Pelvic (Non ) MR#: [id number] Acct: [id number] Name: GAIL LACEY Rep #: [id number] : 1985 F 33 From: Junior Hicks MD PCP: Kaden Robles MD Status: REG CLI Study: Pelvic (Non ) Date of Exam: 07/11/18 Exam# [id number] Ordering Dr: Gini Alcala MD STUDY: ULTRASOUND [...] CC: Kaden Robles MD; Gini Alcala MD Asp Net Programmer: Signed TRANSVAGINAL Observed: 07/11/2018 Status: F Source: [place] NON- 8:39 AM [facility] REPOSITORY [facility] Imaging Services [address] [place] [address] Transvaginal Non- MR#: [id number] Acct: [id number] Name: GAIL LACEY Rep #: [id number] : 1985 F 33 From: Junior Hicks MD PCP: Kaden Robles MD Status: REG CLI Study: Transvaginal Non- Date of Exam: 07/11/18 Exam# [id number] Ordering Dr: Gini Alcala MD STUDY: ULTRASOUND [...] CC: Kaden Robles MD; Gini Alcala MD Asp Net Programmer: Signed CONSULTATION Observed: 07/10/2018 Status: F Source: [place] 4:45 PM [facility] REPOSITORY [facility] Medical Records Department [address] [place] [address] Consultation 06/25/18 1506 MR#: [id number] Acct: [id number] Name: GAIL LACEY Rep #: [id number] : 1985 33 From: Collette Medellin MD PCP: Kaden Robles MD Status: [place] Y Location: [place] [address]1 Problem List (1) Speech disturbance Status: Acute [...] 9 CM COMPLEX SECONDARY WOUND CLOSURE 08/05/2017 [place] teeth extracted K08.499 Surgical History: - - [place] teeth, Planter Wart, Partial Mastectomy 04/06/17, Port Placement, left lateral breast with incision and drainage and excision nonhealing post-lumpectomy seroma ulcer with 9 cm complex secondary wound closure, recent Revision left breast reconstruction with excision painful infected lateral radiation lumpectomy scar contour deformity with completion mastectomy. Psychiatric History: Anxiety, Depression NEWSPAPER CORRESPONDENT History: No pertinent NEWSPAPER CORRESPONDENT history Lives: Spouse/ Significant Other Smoking Status: [...] patient. Code Visit Inpatient E AND M: 08296 Init Hosp L3 07/10/18 5224 <Electronically signed by Collette Medellin MD> Date Collette Medellin MD Cosigner Signature (if applicable): Date CC: Thomas Medellin MD; Kaden Robles MD; Jose Robertson MD; Albert Gomez MD Signed ELECTROENCEPHALOGRAM Observed: 07/10/2018 Status: F Source: [place] 4:45 PM [facility] REPOSITORY [facility] Pulmonary Services/Neurology [address] [place] [address] MR#: [id number] Acct: [id number] Name: GAIL LACEY Rep #: [id number] : 1985 33 From: Collette Medellin MD Referring Dr: Jose Robertson MD Status: DIS DOUGLAS Ordering Dr: Date: Location: [place] [address] Sex: F C - Electroencephalogram Date of [...] or electrographic seizures noted during the record. 07/10/18 1645 <Electronically signed by Collette Medellin MD> Date Collette Medellin MD CC: Thomas Medellin MD; Kaden Robles MD; Jose Robertson MD Date Dictated: 06/27/18 140 Date Transcribed: 06/27/18 1404 Asp Net Programmer: BRIAN Signed CA 125 SERIAL Collected: 07/04/2018 Status: F Source: [place] MONITOR 9:50 AM [facility] REPOSITORY TYPE CODE TESTS RESULT OUT OF RANGE REFERENCE UNITS LAB L3100.5010 0.0-38.1 U/mL Normal CA125 8.7 2303 Result Comment: Jayshree ECLIA methodology Performed at: - [facility] [address] [id number] [place]: Edmundo Vaughan PhD, Phone: [phone] LAB L3100.5012 Normal CA 125 SM GRAPH Result Comment: Scanned image report available in EMR Performed By: #### L3100.4950 #### [facility] (refer to report for specific site) refer to report for address and phone number JACE RT SCRN Observed: 07/04/2018 Status: F Source: [place] W/CAD 8:53 AM REPLACED BY [facility] REPOSITORY [facility] Imaging Services [address] [place] [address] UNILSTEFANIA RT SCRN W/CAD MR#: [id number] Acct: [id number] Name: GAIL LACEY Rep #: [id number] : 1985 F 33 From: Lupillo Samuel MD PCP: Kaden Robles MD Status: REG CLI Study: UNILAT RT SCRN W/CAD Date of Exam: 07/04/18 Exam# [id number] Ordering Dr: Owen Edouard MD MAMMOGRAPHY - [...] delay biopsy of a clinically suspicious abnormality. [id number] Electronically Signed: Lupillo Samuel MD at 10:09 EDT Tel [phone], Service support , CC: Kaden Robles MD; Owen Edouard MD Asp Net Programmer: Signed OPERATIVE REPORT Observed: 07/03/2018 Status: F Source: [place] 11:24 PM [facility] REPOSITORY [facility] Medical Records Department [address] [place] [address] Operative Report 06/24/18 1815 MR#: [id number] Acct: [id number] Name: GAIL LACEY Rep #: [id number] : 1985 33 From: Jose Robertson MD PCP: Kaden Robles MD Status: DIS DOUGLAS Y Location: [place] [address] Report of Operation Date of Procedure: 06/24/18 [...] (I used 2 vials). Reference Number - [id number]. Lot Number - [id number]. Expiration - April 14, 2023. global consumer sector vice president: Lois Diaz. Type of Anesthesia:: General Specimen's [...] Yes Code Visit Surgery Charges CPT - 07794 ICD-10 - C50.912, L98.499, Z90.12, N65.1, N65.0, T66.xxxS, N64.4 07/03/18 8438 <Electronically signed by Jose Robertson MD> Date Jose Robertson MD CC: Thomas Medellin MD; Kaden Robles MD; Jose Robertson MD; Owen Edouard MD; Albert Gomez MD; Devon Xiong DO; [facility] Signed DISCHARGE INSTRUCTION Observed: 06/26/2018 Status: F Source: [place] 5:37 PM [facility] REPOSITORY [facility] Medical Records Department [address] [place] [address] Instructions for Home/Discharge Instructions 06/26/18 1720 MR#: [id number] Acct: [id number] Name: GAIL LACEY Rep #: [id number] : 1985 33 From: Jose Robertson MD [...] With: Jose Robertson MD When: wednesday07/04/18 at [facility]. Proposed Discharge Date: 06/26/18 06/26/18 1737 <Electronically signed by Jose Robertson MD> Date Jose Robertson MD CC: Thomas Medellin MD; Kaden Robles MD; Owen Edouard MD; Albert Gomez MD; Devon Xiong DO; [facility] CONSULTATION Observed: 06/25/2018 Status: F Source: [place] 12:09 PM [facility] REPOSITORY [facility] Medical Records Department [address] [place] [address] Consultation 06/25/18 1150 MR#: [id number] Acct: [id number] Name: GAIL LACEY Rep #: [id number] : 1985 33 From: Albert Gomez MD PCP: Kaden Robles MD Status: [facility] Problem List (1) Transient global amnesia Status: [...] 9 CM COMPLEX SECONDARY WOUND CLOSURE 08/05/2017 [place] teeth extracted K08.499 Surgical History: - - [place] teeth, Plan[place] Wart, Partial Mastectomy 04/06/17, Port Placement, left lateral breast with incision and drainage and excision nonhealing post-lumpectomy seroma ulcer with 9 cm complex secondary wound closure, recent Revision left breast reconstruction with excision painful infected lateral radiation lumpectomy scar contour deformity with completion mastectomy. Psychiatric History: Anxiety, Depression NEWSPAPER CORRESPONDENT History: No pertinent NEWSPAPER CORRESPONDENT history Smoking Status: Former smoker - *Family [...] Lovenox. Code Visit Inpatient E AND M: 21583 Init Hosp L2 06/25/18 1209 <Electronically signed by Albert Gomez MD> Date Albert Gomez MD Cosigner Signature (if applicable): Date CC: Kaden Robles MD; Jose Robertson MD; Albert Gomez MD Signed CBC-COMPLETE BLOOD CNT Collected: 06/25/2018 Status: F Source: [place] NO DIFF 4:20 AM [facility] REPOSITORY TYPE CODE TESTS RESULT OUT OF [...] By: #### L100.0500, L500.2500, L500.4100, L506.0500 #### [facility] [address] [place], [address] BASIC METABOLIC Collected: 06/25/2018 Status: F Source: [place] PROFILE (BMP) 4:20 AM [facility] REPOSITORY TYPE CODE TESTS RESULT OUT OF [...] By: #### L100.0500, L500.2500, L500.4100, L506.0500 #### [facility] [address] [facility] [place], [place], [address] LIPID PROFILE Collected: 06/25/2018 Status: F Source: [place] 4:20 AM [facility] REPOSITORY TYPE CODE TESTS RESULT OUT OF [...] By: #### L100.0500, L500.2500, L500.4100, L506.0500 #### [facility] [address] [place], [place], [address] PREALBUMIN Collected: 06/25/2018 Status: F Source: [place] 4:20 AM [facility] REPOSITORY TYPE CODE TESTS RESULT OUT OF RANGE REFERENCE UNITS LAB L506.0500 20.0-40.0 mg/dL Normal PREALBUMIN 21.1 Performed By: #### L100.0500, L500.2500, L500.4100, L506.0500 #### [facility] [address] [place], [address] TROPONIN-I Collected: 06/24/2018 Status: F Source: [place] 10:45 PM [facility] REPOSITORY TYPE CODE TESTS RESULT OUT OF RANGE REFERENCE UNITS LAB L501.4010 <0.045 ng/mL Normal < 0.015 TROPONIN-I Result Comment: TROPONIN-I EXPECTED VALUES <0.045 Negative 0.045 - 0.590 Consistent with Cardiac Damage > OR = 0.600 Critical Value Not every elevated troponin is indicative of ME. These values should be used with clinical judgement in examining the patient's clinical picture for diagnosis. To establish a diagnosis of ME versus myocardial injury, there must be a demonstrated rise and/or fall in the troponin values, in addition to ischemic symptoms, EKG changes, new regional wall motion abnormality, and/or angiographical evidence. PLEASE NOTE: REFERENCE RANGES EDITED 18 Performed By: #### L501.4010 #### [facility] [address] [facility] [place], [address] BRAIN W/WO CONTRAST Observed: 06/24/2018 Status: F Source: [place] 10:17 PM [facility] REPOSITORY [facility] Imaging Services [address] [address] Brain W/WO Contrast MR#: [id number] Acct: [id number] Name: GAIL LACEY Rep #: [id number] : 1985 F 33 From: Mendel Feliciano MD PCP: Kaden Robles MD Status: [facility] Study: Brain W/WO Contrast Date of Exam: 06/24/18 Exam# [id number] Ordering Dr: Varinder Taylor MD STUDY: MRI [...] CC: Kaden Robles MD; Varinder Taylor MD Asp Net Programmer: Signed CTA HEAD W/WO Observed: 06/24/2018 Status: F Source: [place] CONTRAST 9:36 PM [facility] REPOSITORY [facility] Imaging Services [address] [place] [address] CTA Head W/WO Contrast MR#: [id number] Acct: [id number] Name: GAIL LACEY Rep #: [id number] : 1985 F 33 From: Kenneth Cota MD PCP: Kaden Robles MD Status: [facility] Study: CTA Head W/WO Contrast Date of Exam: 06/24/18 Exam# [id number] Ordering Dr: Varinder Taylor MD STUDY: CTA [...] There is no demonstrated aneurysm of the [place]. There is no demonstrated abnormality of the visualized brain. CT/CTA Head W/WO Contrast IMPRESSION: Normal [place] without a demonstrated aneurysm or hemodynamically significant stenosis. Case discussed with Dr. Smart at 10:15 PM N.B. : The above information has been verbally conveyed by Kenneth Cota MD to Varinder Taylor, Referring Physician, on 06/24/2018 22:15:24 (ET). Electronically Signed: Kenneth Cota MD at 22:15 EDT , Service support , CC: Kaden Robles MD; Varinder Taylor MD Asp Net Programmer: Signed CTA NECK W/WO Observed: 06/24/2018 Status: F Source: [place] CONTRAST 9:36 PM [facility] REPOSITORY [facility] Imaging Services [address] [place] [address] CTA Neck W/WO Contrast MR#: [id number] Acct: [id number] Name: GAIL LACEY Rep #: [id number] : 1985 F 33 From: Kenneth Cota MD PCP: Kaden Robles MD Status: [facility] Study: CTA Neck W/WO Contrast Date of Exam: 06/24/18 Exam# [id number] Ordering Dr: Varinder Taylor MD STUDY: CTA [...] CC: Kaden Robles MD; Varinder Taylor MD Asp Net Programmer: Signed BEDSIDE GLUCOSE Collected: 06/24/2018 Status: F Source: [place] 9:22 PM [facility] REPOSITORY TYPE CODE TESTS RESULT OUT OF REFERENCE UNITS RANGE LAB L501.080 70-110 mg/dL High BEDSIDE GLU 145 Result Comment: MANAGEMENT OF PATIENT CARE PER NURSING PROTOCOL Performed By: #### L501.080 #### [facility] Point of Care [address] [place] [address] Observed: 06/24/2018 Status: F Source: [place] CULTURE, DEEP WOUND 5:47 PM [facility] REPOSITORY Order Date: 05/19/17 Comments: LEFT BREAST [...] <=0.5 S (NF) indicates non-formulary drug at [facility]. Approval by Infectious Disease Specialist [...] cocci Performed By: #### M100.1500, M600.1900 #### [facility] [address] [place], [address] Observed: 06/24/2018 Status: F Source: [place] FUNGUS W/ 5:47 PM [facility] [id number] REPOSITORY Comments: LEFT BREAST TISSUE FOR DEEP WOUND/FUNGAL Is this test to exclude patient from TB Isolation? N Cu,Afhgrq7616 TESTING PERFORMED AT [facility]. ORIGINAL REPORT ON FILE IN LAB CONTAINS ADDITIONAL TEST SITE INFORMATION. CUF No yeast or mold isolated after [address] TESTING PERFORMED AT [facility]. ORIGINAL REPORT ON FILE IN LAB CONTAINS ADDITIONAL TEST SITE INFORMATION. Fungus Stain No yeast or mold observed. Performed By: #### M100.1500, M600.1900 #### [facility] [address] [place], [address] BREAST MASTECTOMY Observed: 06/24/2018 Status: F Source: [place] (CHOOSE SIDE 1:15 PM [facility] REPOSITORY Patient: GAIL LACEY : 1985 (33/F) Acct Num: [id number] Phys: Marcelo TREVIZO,Jose Unit Num: [id number] Loc: MS2 [id number] Specimen: [id number] Received: 06/27/18 - 1016 Spec Type: BREAST [...] muscle tissue. No mass lesion is identified. Neon Sign Erector sections are submitted in six cassettes. / RO:sharon 06/27/18 TC:5 CPT: 41507 HEADER OPERATION: Reconstructed left breast with excision [...] inflammation and foreign body giant cell reaction. RO:sharon 06/28/18 Signed Zaheer Moura 06/28/18 <signature on file> Performed By: #### PBREAST #### [facility] [address] [place], [address] ,URINE Collected: 06/24/2018 Status: F Source: [place] 11:49 AM [facility] REPOSITORY TYPE CODE TESTS RESULT OUT OF REFERENCE UNITS RANGE LAB L400.8000 Negative Normal HCGUQUAL Negative Result Comment: Very dilute urine specimens, as indicated by a low specific gravity, may not contain assistance representative levels of hCG. If is still suspected, a first morning urine specimen should be collected 48 hours later and tested. Performed By: #### L400.7600 #### [facility] [address] [place], [address] HISTORY AND PHYSICAL Observed: 06/21/2018 Status: F Source: [place] EXAM 10:14 PM [facility] REPOSITORY [facility] Medical Records Department [address] [address] History and Physical 06/13/18 2353 MR#: [id number] Acct: [id number] Name: GAIL LACEY Rep #: [id number] : 1985 33 From: Jose Robertson MD PCP: Kaden Robles MD Status: [facility] [place] Location[place] [facility] History and Physical Date of Admission: 06/14/18 [...] breast Chemotherapy induced neutropenia PAST SURGICAL HISTORY: [place] teeth 2003 all 4 Planter Wart 2007 Partial Mastectomy 04/06/17 - getting chemotherapy and will follow with radiation therapy Port Placement 05/03 Hospital-Febrile Neutropenia discharged 07/14/17 Occasional psychiatric hospitalized [id number] surgical preparation left lateral breast with incision [...] VISIT REPORT Observed: 06/13/2018 Status: F Source: [place] 9:47 AM [facility] REPOSITORY [facility] [address] [place] [address] OFFICE VISIT Date of Service: 06/13/18901 MR#: [id number] Acct: [id number] Name: GAIL LACEY Rep #: [id number] : 1985 From: Owen Edouard MD Age/Sex: [...] diameter poorly differentiated, grade 3, ER negative, MN weak positive, Her- 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 Margins were negative for both invasive and noninvasive cancer. Patient started systemic adjuvant therapy under the care of in [facility] on May 18, 2017. She received her [...] 09, 2017 wishing to transfer care to [facility] for proximity to residence. Treatment: - April 06, 2017 left partial mastectomy - [facility] X6 cycles -08/2017- (delays due to delayed wound healing, cytopenias and febrile neutropenia). - Herceptin maintenance 10/04/2017-05/23/2018 (Concluded 1Y) - Tamoxifen October-March 2018 then stopped (wishing to have more children if possible, disease is ER negative, MN weak positive) - Adjuvant radiation therapy; 4256 cGy of mixed 6, 10, and 15 MV photons in 16 fractions to the left breast with a 3D conformal technique consisting of SAO TOMEAN, LPO, and MONTERO carmen with field and field to improve dose homogeneity. A sequential boost consisting of 1000 cGy of mixed 10 and 15 MV photon in 4 fractions was delivered to the lumpectomy bed with a 3D conformal technique consisting of SAO TOMEAN and LPO carmen. This brought the total [...] (T1c, N0, M0) high-grade G3, ER negative, MN weak positive, HER-2 positive. Patient is status [...] have more children, disease is ER negative MN weakly positive and therefore the added benefit [...] Provider: Kaden Robles MD Referring Provider: 06/13/18 0908 <Electronically signed by Owen Edouard MD> Date Owen Acevedo Signature: Date (if applicable) CC: Kaden Robles MD CBC W/DIFF, AUTOMATED Collected: 06/13/2018 Status: F Source: [place] 8:40 AM [facility] REPOSITORY Order Comment: Reason for Laboratory Test [...] 1.03 Performed By: #### L100.0100, L500.4050 #### [facility] [address] [place], [address] COMPREHENSIVE METABOLIC Collected: 06/13/2018 Status: F Source: [place] [facility] 8:40 AM [facility] REPOSITORY Order Comment: Reason for Laboratory Test [...] 12 Performed By: #### L100.0100, L500.4050 #### [facility] [address] [place], [address] LICENSING REPRESENTATIVE OFFICE VISIT Observed: 06/05/2018 Status: F Source: [place] REPORT 3:47 AM [facility] REPOSITORY [facility] [address] [place] [address] OFFICE VISIT Date of Service: 05/31/18 MR#: [id number] Acct: [id number] Name: GAIL LACEY Rep #: [id number] : 1985 Provider: Gini Alcala MD Age/Sex: 33/F Location[place] [facility] [place] Status: Signed Intake Vital Signs05/31/18 Height 5 ft 8 in 05/31/18 Weight: 213 lb 4 oz 05/31/18 Body Mass Index (BMI) 32.4 05/31/18 Blood Pressure 110/70 Intake Visit Reasons: Followup cyst Chief Complaint: cyst follow up Aged Or Disabled Carer Required: No Is patient in pain?: No [...] 2007) SURGICAL PREPARATION LEFT LATERAL BREAST (Acute) [place] teeth extracted (Acute) Family History Mother Psychiatric disorder Thyroid disorder Father Hyperlipidemia Hypertension Father Heart disease Aunt Seizures Grandmother Cancer Colon cancer Grandfather Diabetes Heart disease Social History Smoking Status: Former smoker alcohol intake: never what type of physical activity do you participate in: none seatbelt use: always do you feel safe at home: Yes additional social history: SUN EXPOSURE: RARELY - [employer] HPI Followup cyst: Details: GAIL [...] ultrasound ordered 2. Encounter for preconception consultation Z31.69 Plan reviewed medications and recommend waiting at least 7 months to conception due to risks of exposure of the fetus to medications taken. discussed risks of breast cancer recurrence and i agree with oncologist her risk is increased if she conceives again. 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 Margins were negative for both invasive and noninvasive cancer. Patient started systemic adjuvant therapy under the care of in [facility] on May 18, 2017. She received her [...] 09, 2017 wishing to transfer care to [facility] for proximity to residence. Treatment: - TCH X6 cycles -08/2017- (delays due to delayed wound healing, cytopenias and febrile neutropenia). - Herceptin maintenance 10/04/2017. - Tamoxifen October-March 2018 then stopped (wishing to have more children if possible, disease is ER negative, MN weak positive) Adjuvant radiation therapy; 4256 cGy of mixed 6, 10, and 15 MV photons in 16 fractions to the left breast with a 3D conformal technique consisting of SAO TOMEAN, LPO, and MONTERO carmen with field and field to improve dose homogeneity. A sequential boost consisting of 1000 cGy of mixed 10 and 15 MV photon in 4 fractions was delivered to the lumpectomy bed with a 3D conformal technique consisting of SAO TOMEAN and LPO carmen. This brought the total [...] cancer stage I(pT1c N0 M0) ER negative, MN positive Her2 positive, adjuvant Herceptin therapy. Plan is to proceed with last Herceptin maintenance therapy. RTC 3 weeks with CBC/CMP. Medications: Prescriptions This Visit Medication Instructions Recorded Tamoxifen Citrate [Nolvadex] 20 mg PO DAILY 04/25/18 Primary Care Provider: Kaden Robles MD Referring Provider: Code Visit Office Visits / Consults: 85034 OV L5 Est 05/23/18 4946 <Electronically signed by Sean Kinsey MD> Date [...] AM CBC Collected: 05/17/2018 Status: F Source: [facility] 8:09 AM [facility] [place] REPOSITORY TYPE CODE TESTS RESULT OUT OF [...] fL Low MPV 6.7 Performed By: #### CBC, ADIFF, ANEU #### [address] [address] #### CMP, GFR #### [address] [address] .AUTO DIFF Collected: 05/17/2018 Status: F Source: [facility] 8:09 AM [facility] [place] REPOSITORY TYPE CODE TESTS RESULT OUT OF [...] ) Basophil, 0.00 Absolute Performed By: #### CBC, ADIFF, ANEU #### [address] [address] #### CMP, GFR #### [address] [address] .NEUABS Collected: 05/17/2018 Status: F Source: [facility] 8:09 AM [facility] [place] REPOSITORY TYPE CODE TESTS RESULT OUT OF REFERENCE UNITS RANGE LAB ANEU(LOINC) 2.85-6.16 10 3/mcL Neutrophil, 3.10 Absolute Performed By: #### CBC, ADIFF, ANEU #### [place] [address] [place], [place] [address] #### CMP, GFR #### [address] [address] CMP Collected: 05/17/2018 Status: F Source: [facility] 8:09 AM [facility] [place] REPOSITORY TYPE CODE TESTS RESULT OUT OF [...] 10-35 U/L ALT/SGPT 33 Performed By: #### CBC, ADIFF, ANEU #### [place] [address] [place], [place] [address] #### CMP, GFR #### [address] [address] .GFR Collected: 05/17/2018 Status: F Source: [facility] 8:09 AM [facility] REPOSITORY TYPE CODE TESTS RESULT OUT OF REFERENCE UNITS RANGE LAB GFRAA(LOINC ml/min/1.73 ) sqm GFR 74 Latvian Result Comment: GFR Population mean for , [...] 15 mL/min/1.73 square meters Performed By: #### CBC, ADIFF, ANEU #### [address] [address] #### CMP, GFR #### [address] [address] PROGRESS Observed: 04/27/2018 Status: COMPLETED Source: [place] 1:34 PM [facility] REPOSITORY HNO ID: [id number] Author: Judy Solares Service: (none) Author Type: [...] VISIT REPORT Observed: 04/25/2018 Status: F Source: [place] 10:54 AM [facility] REPOSITORY [facility] [place] [place] [address] OFFICE VISIT Date of Service: 04/25/18 1029 MR#: [id number] Acct: [id number] Name: GIAL LACEY Rep #: [id number] : 1985 From: Owen Edouard MD Age/Sex: [...] diameter poorly differentiated, grade 3, ER negative, MN weak positive, Her- 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 Margins were negative for both invasive and noninvasive cancer. Patient started systemic adjuvant therapy under the care of in [facility] on May 18, 2017. She received her [...] 09, 2017 wishing to transfer care to [facility] for proximity to residence. Treatment: - TCH X6 cycles -08/2017- (delays due to delayed wound healing, cytopenias and febrile neutropenia). - Herceptin maintenance 10/04/2017 - Tamoxifen October-March 2018 then stopped (wishing to have more children if possible, disease is ER negative, MN weak positive) Adjuvant radiation therapy; 4256 cGy of mixed 6, 10, and 15 MV photons in 16 fractions to the left breast with a 3D conformal technique consisting of SAO TOMEAN, LPO, and MONTERO carmen with field and field to improve dose homogeneity. A sequential boost consisting of 1000 cGy of mixed 10 and 15 MV photon in 4 fractions was delivered to the lumpectomy bed with a 3D conformal technique consisting of SAO TOMEAN and LPO carmen. This brought the total [...] (T1c, N0, M0) high-grade G3, ER negative, MN weak positive, HER-2 positive. Patient is status [...] have more children, disease is ER negative MN weakly positive and therefore the added benefit [...] DOWNTIME REPORT Observed: 04/07/2018 Status: F Source: [place] 12:19 PM [facility] Medical Records Department [address] [place] [address] [place] [address] Downtime Report MR#: [id number] Acct: [id number] Name: GAIL LACEY Rep #: [id number] : 1985 32 From: Kaden Barclay PCP: Kaden Robles MD Status: REG RCR This patient was seen during an EMR downtime March 21, 2018 - March 28, 2018. This patient may have a combination of paper and electronic documentation or all paper documentation. All documentation is viewable within the e-chart portion of [employer] for each patient visit. 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 Procedure This was a 2D [...] Physician: Owen Edouard Performed By: Eun Garcia, RDCS, RVT 03/29/18 1525 Date Nathaniel Walters MD CC: Kaden Robles MD; Owen Edouard MD Date Dictated: 03/29/18 1359 Date Transcribed: 03/29/18 1525 [employer] Net Programmer: Signed ONCOLOGY VISIT REPORT Observed: 03/28/2018 Status: F Source: [place] 4:20 PM [facility] REPOSITORY [facility] [address] [place], [place] [address] [address] OFFICE VISIT Date of Service: 03/28/18 1612 MR#: [id number] Acct: [id number] Name: GAIL LACEY Rep #: [id number] : 1985 From: Owen Edouard MD Age/Sex: [...] diameter poorly differentiated, grade 3, ER negative, MN weak positive, Her- 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 Margins were negative for both invasive and noninvasive cancer. Patient started systemic adjuvant therapy under the care of in [facility] on May 18, 2017. She received her [...] 09, 2017 wishing to transfer care to [facility] for proximity to residence. Treatment: - TCH X6 cycles -08/2017- (delays due to delayed wound healing, cytopenias and febrile neutropenia). - Herceptin maintenance 10/04/2017 - Tamoxifen 11/15/2017- Adjuvant radiation therapy; 4256 cGy of mixed 6, 10, and 15 MV photons in 16 fractions to the left breast with a 3D conformal technique consisting of SAO TOMEAN, LPO, and MONTERO carmen with field and field to improve dose homogeneity. A sequential boost consisting of 1000 cGy of mixed 10 and 15 MV photon in 4 fractions was delivered to the lumpectomy bed with a 3D conformal technique consisting of SAO TOMEAN and LPO carmen. This brought the total [...] (T1c, N0, M0) high-grade G3, ER negative, MN weak positive, HER-2 positive. Patient is status [...] Provider: Kaden Robles MD Referring Provider: 03/28/18 3130 <Electronically signed by Owen Edouard MD> Date Owen Edouard MD Cosigner Signature: Date (if applicable) CC: DANDY W/DIFF, AUTOMATED Collected: 03/28/2018 Status: F Source: [place] 9:28 AM [facility] REPOSITORY Order Comment: Reason for Laboratory Test [...] Lymph 1.09 Performed By: #### L100.0100 #### [facility] [address] [place], [address] COMPREHENSIVE METABOLIC Collected: 03/28/2018 Status: F Source: [place] [facility] 9:28 AM [facility] REPOSITORY Order Comment: Reason for Laboratory Test [...] GAP 9 Performed By: #### L500.4050 #### [facility] [place], [address] ONCOLOGY FOLLOW-UP Observed: 03/17/2018 Status: F Source: [place] VISIT 10:57 AM [facility] REPOSITORY [facility] Medical Records Department [address] [place] [address] Oncology Follow-Up Visit 03/17/18 1038 MR#: [id number] Acct: [id number] Name: GAIL LACEY Rep #: [id number] : 1985 32 From: Devon Xiong DO PCP: Kaden Robles MD Status: REG RCR Y Location: [facility] Date of Service: 03/17/18 Last Clinic Visit: 12/10/17 Diagnosis: Gail Lacey is a 32 year-old pre-menopausal female diagnosed with 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 04/06/2017: Patient [...] under the care of Dr. Ferreira in [facility], she received TCH 07/02/2017: She received [...] been followed closely. 01/29/18: Patient seen by cardiac surgeon for cervical cancer screening. 02/28/2018: Patient had [...] (sn) M0) grade 3 IDC (ER 0%, MN 5%, Her2 3+ on IHC) of the [...] in the interim. Devon Xiong DO, MS [employer], Department of Radiation Oncology [facility] 03/17/18 1057 <Electronically signed by Devon Xiong DO> Date Devon Xiong DO CC: Jose Robertson MD; Owen Edouard MD Signed OPERATIVE REPORT Observed: 03/07/2018 Status: F Source: [place] 8:20 AM [facility] REPOSITORY [facility] Medical Records Department [address] [place] [address] Operative Report 03/07/18 0815 MR#: [id number] Acct: [id number] Name: GAIL LACEY Rep #: [id number] : 1985 32 From: Evangelist Moseley MD PCP: Kaden Robles MD Status: REG [facility] [place] Location: [address] Problem List (1) GERD (gastroesophageal reflux disease) Status: Acute Qualifiers: Esophagitis presence: without esophagitis Qualified Code(s): K21.9 - Gastro-esophageal reflux disease without esophagitis (2) Family history of colon cancer in father Status: Acute Report of Operation Date of Procedure: 03/07/18 Pre-Operative Diagnosis: k21.9 GERD. z80.0 family history of colon cancer (father) Post-Operative Diagnosis: Same Surgery/Procedure Performed:: 11286 esophagogastroduodenoscopy with biopsy. [address]8880 colonoscopy Type of Anesthesia:: MAC Anesthesiologist: Cyrus [...] VISIT REPORT Observed: 03/01/2018 Status: F Source: [place] 4:54 PM [facility] REPOSITORY [facility] [address] [place] [address] OFFICE VISIT Date of Service: 03/01/18 MR#: [id number] Acct: [id number] Name: GAIL LACEY Rep #: [id number] : 1985 Provider: Izabella Berger PA-C Age/Sex: 32/F Location: [facility] Status: Signed Intake Vital Signs03/01/18 Height 5 ft 8 in 03/01/18 Weight: 218 lb 1 oz 03/01/18 Body Mass Index (BMI) 33.1 Intake Visit Reasons: Update H AND P C-SCOPE DP Chief Complaint: update H AND P for endo DP Aged Or Disabled Carer Required: No Is patient in pain?: No [...] 2007) SURGICAL PREPARATION LEFT LATERAL BREAST (Acute) [place] teeth extracted (Acute) Family History Mother Psychiatric [...] original surgery was in March 2017 at [facility]. She had post-operative chemotherapy and radiation. 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 Margins were negative for both invasive and noninvasive cancer. Patient started systemic adjuvant therapy under the care of in [facility] on May 18, 2017. She received her [...] 09, 2017 wishing to transfer care to [facility] for proximity to residence. Treatment: - [facility] X6 cycles -08/2017- (delays due to delayed wound healing, cytopenias and febrile neutropenia). - Herceptin maintenance 10/04/2017 - Tamoxifen 11/15/2017- Adjuvant radiation therapy; 4256 cGy of mixed 6, 10, and 15 MV photons in 16 fractions to the left breast with a 3D conformal technique consisting of SAO TOMEAN, LPO, and MONTERO carmen with field and field to improve dose homogeneity. A sequential boost consisting of 1000 cGy of mixed 10 and 15 MV photon in 4 fractions was delivered to the lumpectomy bed with a 3D conformal technique consisting of SAO TOMEAN and LPO carmen. This brought the total [...] (T1c, N0, M0) high-grade G3, ER negative, MN weak positive, HER-2 positive. Patient is status [...] signed by Owen Edouard MD> Date Owen Acevedo Signature: Date (if applicable) CC: COMPREHENSIVE METABOLIC Collected: 02/21/2018 Status: F Source: [place] 2:00 PM [facility] REPOSITORY TYPE CODE TESTS RESULT OUT OF [...] 7 Performed By: #### L500.4050, L501.6710 #### [facility] [address] [facility] [place], [place], [address] CRP Collected: 02/21/2018 Status: F Source: [place] 2:00 PM [facility] REPOSITORY TYPE CODE TESTS RESULT OUT OF RANGE REFERENCE UNITS LAB L501.6710 0.0-3.0 mg/L High 6.66 C-REACTIVE PROT Result Comment: C-Reactive Protein (CRP) provides useful information for the diagnosis, therapy and monitoring of inflammatory processes and associated diseases. For the evaluation of Relative Risk for Cardiovascular Disease, a High Sensitivity CRP (HSCRP) should be ordered. Performed By: #### L500.4050, L501.6710 #### [facility] [address] [facility] [place], [address] CBC-COMPLETE BLOOD CNT Collected: 02/21/2018 Status: F Source: [place] NO DIFF 2:00 PM [facility] REPOSITORY TYPE CODE TESTS RESULT OUT OF [...] 8.6 Performed By: #### L100.0500, L101.9900 #### [facility] [address] [facility] [place], [place], [address] ERYTHROCYTE SED RATE Collected: 02/21/2018 Status: F Source: [place] 2:00 PM [facility] REPOSITORY TYPE CODE TESTS RESULT OUT OF RANGE REFERENCE UNITS LAB L102.0000 0-20 mm/hr Normal SED RATE 4 Performed By: #### L100.0500, L101.9900 #### [facility] [address] [place], [address] CBC-COMPLETE BLOOD CNT Collected: 02/14/2018 Status: F Source: [place] NO DIFF 2:00 PM [facility] REPOSITORY TYPE CODE TESTS RESULT OUT OF [...] 8.5 Performed By: #### L100.0500, L101.9900 #### [facility] [address] [place], [place], [address] ERYTHROCYTE SED RATE Collected: 02/14/2018 Status: F Source: [place] 2:00 PM [facility] REPOSITORY TYPE CODE TESTS RESULT OUT OF RANGE REFERENCE UNITS LAB L102.0000 0-20 mm/hr Normal SED RATE 9 Performed By: #### L100.0500, L101.9900 #### [facility] [address] [place], [address] COMPREHENSIVE METABOLIC Collected: 02/14/2018 Status: F Source: [place] 2:00 PM [facility] REPOSITORY TYPE CODE TESTS RESULT OUT OF [...] 8 Performed By: #### L500.4050, L501.6710 #### [facility] [address], [address] CRP Collected: 02/14/2018 Status: F Source: [place] 2:00 PM [facility] REPOSITORY TYPE CODE TESTS RESULT OUT OF RANGE REFERENCE UNITS LAB L501.6710 0.0-3.0 mg/L High 8.28 C-REACTIVE PROT Result Comment: C-Reactive Protein (CRP) provides useful information for the diagnosis, therapy and monitoring of inflammatory processes and associated diseases. For the evaluation of Relative Risk for Cardiovascular Disease, a High Sensitivity CRP (HSCRP) should be ordered. Performed By: #### L500.4050, L501.6710 #### [facility] [address] [facility] [place], [address] ONCOLOGY VISIT REPORT Observed: 02/07/2018 Status: F Source: [place] 2:26 PM [facility] REPOSITORY [facility] [address] [facility] 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 Margins were negative for both invasive and noninvasive cancer. Patient started systemic adjuvant therapy under the care of in [facility] on May 18, 2017. She received her [...] 09, 2017 wishing to transfer care to [facility] for proximity to residence. Treatment: - TCH X6 cycles -08/2017- (delays due to delayed wound healing, cytopenias and febrile neutropenia). - Herceptin maintenance 10/04/2017 - Tamoxifen 11/15/2017- Adjuvant radiation therapy; 4256 cGy of mixed 6, 10, and 15 MV photons in 16 fractions to the left breast with a 3D conformal technique consisting of SAO TOMEAN, LPO, and MONTERO carmen with field and field to improve dose homogeneity. A sequential boost consisting of 1000 cGy of mixed 10 and 15 MV photon in 4 fractions was delivered to the lumpectomy bed with a 3D conformal technique consisting of SAO TOMEAN and LPO carmen. This brought the total [...] Had Pap smear and follows up with NEWSPAPER CORRESPONDENT. Denies: Dysuria, Hematuria, Flank pain Musculoskeletal:: Reports: [...] (T1c, N0, M0) high-grade G3, ER negative, MN weak positive, HER- 2 positive. Patient is [...] 02/07/2018 Status: F Source: [place] 1:10 PM [facility] REPOSITORY Order Comment: Reason for Laboratory Test [...] 0.87 Performed By: #### L100.0100, L101.9900 #### [facility] [address] [facility] [place], [place], [id number] ERYTHROCYTE SED RATE Collected: 02/07/2018 Status: F Source: [place] 1:10 PM [facility] REPOSITORY Order Comment: Reason for Laboratory Test . TYPE CODE TESTS RESULT OUT OF RANGE REFERENCE UNITS LAB L102.0000 0-20 mm/hr Normal SED RATE 19 Performed By: #### L100.0100, L101.9900 #### [facility] [address] [facility] [place], [place], [address] COMPREHENSIVE METABOLIC Collected: 02/07/2018 Status: F Source: [facility] 1:10 PM [facility] REPOSITORY Order Comment: Reason for Laboratory Test [...] 9 Performed By: #### L500.4050, L501.6710 #### [facility] [address] [place], [address] CRP Collected: 02/07/2018 Status: F Source: [place] 1:10 PM [facility] REPOSITORY Order Comment: Reason for Laboratory Test [...] ordered. Performed By: #### L500.4050, L501.6710 #### [facility] [address] [facility] [place], [address] 12 LEAD ELECTROCARDIOGRAM Observed: 02/06/2018 Status: F Source: [place] 8:56 PM [facility] REPOSITORY [facility] Cardiovascular Services [address] [facility] [address] 12 Lead EKG 01/31/18 1729 MR#: [id number] Acct: [id number] Name: GAIL LACEY Rep #: [id number] : 1985 32 From: Evangelist Diaz MD Attending Dr: Status: DEP ER Ordering Dr: Frnacis Scott MD Date: 01/31/18 Location: ED Sex: [...] Abnormal ECG Confirmed by EVANGELIST DIAZ ([id number]), health editor BUZZ BARCLAY ([id number]) on 02/03/2018 2:40:11 PM Referred By: CARMELINA Confirmed By:EVANGELIST DIAZ 02/03/18 1440 Date Evangelist Diaz MD CC: Kaden Robles MD; Francis Scott MD Signed OPERATIVE REPORT Observed: 02/02/2018 Status: F Source: [place] 2:20 PM [facility] REPOSITORY [facility] Medical Records Department [address] [place] [address] Operative Report 01/04/18 2152 MR#: [id number] Acct: [id number] Name: GAIL LACEY Rep #: [id number] : 1985 32 From: Jose Robertson MD PCP: Kaden Robles MD Status: DIS IN Y Location: [facility] [id number] Report of Operation Date of Procedure: 01/04/18 [...] infiltrating ductal carcinoma which was ER negative, MN weakly positive, and HER2/dilia positive. She was [...] - 10 x 22 x 6 cm. global consumer sector vice president: Jesus Olivera. Type of Anesthesia:: General Specimen's [...] operative culture may necessitate antibiotic modification. If metal punch press operator IV antibiotics are needed, then a PICC [...] Yes Code Visit Surgery Charges CPT - [id number] ICD-10 - C50.912, Z90.12, N65.0, N65.1, N64.4, T66.xxxS, T88.8xxS 02/02/18 1420 <Electronically signed by Jose Robertson MD> Date Jose Robertson MD CC: Kaden Robles MD; Jose Robertson MD; Owen Edouard MD; Devon Xiong DO; [facility] Signed PROGRESS Observed: 02/02/2018 Status: COMPLETED Source: [place] 9:09 AM CLINIC OTHER CAMPUS REPOSITORY O ID: [id number] Author: Judy Solares Service: (none) Author Type: [...] due to not driving and lives in [place], advised her to call if counselor isnt' [...] DISCHARGE INSTRUCTION Observed: 01/31/2018 Status: F Source: [place] 8:22 PM REPLACED BY [facility] REPOSITORY [facility] Medical Records Department [address] [place] [address] Discharge Instruction 01/31/182020 MR#: [id number] Acct: [id number] Name: GAIL LACEY Rep #: [id number] : 1985 32 From: Francis Scott MD [...] problems, contact your Primary Care Provider. Call [facility] Registry ([phone]) or report to the closest Emergency Room. Call 911 if necessary. 01/31/182021 <Electronically signed by Francis Scott MD> Date Francis Scott MD Cosigner Signature (If Indicated): Date CC: Kaden Robles MD EMERGENCY DEPARTMENT Observed: 01/31/2018 Status: F Source: [place] SUMMARY 8:21 PM REPLACED BY [facility] REPOSITORY [facility] Medical Records Department [address] [place] [address] Emergency Department Summary 01/31/182018 MR#: [id number] Acct: [id number] Name: GAIL LACEY Rep #: [id number] : 1985 32 From: Francis Scott MD [...] wound infection This note was generated with [email or web address] dictation software. It may contain incorrect words, [...] problems, contact your Primary Care Provider. Call [facility] ([phone]) or report to the closest Emergency Room. Call 911 if necessary. 01/31/182020 <Electronically signed by Francis Scott MD> Date Francis Scott MD Cosigner Signature (If Indicated): Date CC: Kaden Robles MD URINALYSIS, COMPLETE Collected: 01/31/2018 Status: F Source: [place] 7:00 PM [facility] REPOSITORY Order Comment: How was Urine Obtained? [...] MUCUS, URINE Performed By: #### L400.0001 #### [facility] [address] [place], [address] CBC W/DIFF, AUTOMATED Collected: 01/31/2018 Status: F Source: [place] 5:37 PM [facility] REPOSITORY TYPE CODE TESTS RESULT OUT OF [...] Lymph 1.34 Performed By: #### L100.0100 #### [facility] [address] [place], [place], [id number] COMPREHENSIVE METABOLIC Collected: 01/31/2018 Status: F Source: [place] 5:37 PM [facility] REPOSITORY TYPE CODE TESTS RESULT OUT OF [...] Normal 8 Performed By: #### L500.4050 #### [facility] [address] [place], [place], [address] LACTIC ACID Collected: 01/31/2018 Status: F Source: [place] 5:37 PM [facility] REPOSITORY Order Comment: Yes/No query for Sepsis Lactate Rule Y TYPE CODE TESTS RESULT OUT OF RANGE REFERENCE UNITS LAB L503.6005 0.4-2.0 mmol/L Normal LACTIC ACID 0.7 Performed By: #### L503.6005 #### [facility] [address] [place], [address] Observed: 01/31/2018 Status: F Source: [place] CULTURE, BLOOD (WB) 5:37 PM [facility] REPOSITORY BC No growth in 5 days. Performed By: #### M200.1000 #### [facility] [address] [place], [place], [address] CHEST PA AND LATERAL Observed: 01/31/2018 Status: F Source: [place] 5:12 PM REPLACED BY [facility] REPOSITORY [facility] Imaging Services [address] [place] [address] Chest PA and Lateral MR#: [id number] Acct: [id number] Name: GAIL LACEY Rep #: [id number] : 1985 F 32 From: Arnaldo Sandhu DO PCP: Kaden Robles MD Status: PRE ER Study: Chest PA and Lateral Date of Exam: 01/31/18 Exam# [id number] Ordering Dr: Francis Scott MD STUDY: X-RAY [...] CC: Kaden Robles MD; Francis Scott MD Asp Net Programmer: Signed BRAIN/HEAD WITHOUT Observed: 01/31/2018 Status: F Source: [place] CONTRAST 5:12 PM [facility] REPOSITORY [facility] Imaging Services [address] [place] [address] Brain/Head without Contrast MR#: [id number] Acct: [id number] Name: GAIL LACEY Rep #: [id number] : 1985 F 32 From: Arnaldo Sandhu DO PCP: Kaden Robles MD Status: PRE ER Study: Brain/Head without Contrast Date of Exam: 01/31/18 Exam# [id number] Ordering Dr: Francis Scott MD STUDY: CT [...] CC: Kaden Robles MD; Francis Scott MD Asp Net Programmer: Signed COMPREHENSIVE METABOLIC Collected: 01/31/2018 Status: F Source: [place] PROFIL 3:00 PM [facility] REPOSITORY TYPE CODE TESTS RESULT OUT OF [...] 7 Performed By: #### L500.4050, L501.6710 #### [facility] [address] [place], [place], [address] CRP Collected: 01/31/2018 Status: F Source: [place] 3:00 PM [facility] REPOSITORY TYPE CODE TESTS RESULT OUT OF RANGE REFERENCE UNITS LAB L501.6710 0.0-3.0 mg/L High 24.90 C-REACTIVE PROT Result Comment: C-Reactive Protein (CRP) provides useful information for the diagnosis, therapy and monitoring of inflammatory processes and associated diseases. For the evaluation of Relative Risk for Cardiovascular Disease, a High Sensitivity CRP (HSCRP) should be ordered. Performed By: #### L500.4050, L501.6710 #### [facility] [address] [facility] [place], [place], [address] ERYTHROCYTE SED RATE Collected: 01/31/2018 Status: F Source: [place] 3:00 PM [facility] REPOSITORY TYPE CODE TESTS RESULT OUT OF RANGE REFERENCE UNITS LAB L102.0000 0-20 mm/hr Normal SED RATE 18 Performed By: #### L101.9900, L100.0500 #### [facility] [address] [facility] [place], [place], [address] CBC-COMPLETE BLOOD CNT Collected: 01/31/2018 Status: F Source: [place] NO DIFF 3:00 PM [facility] REPOSITORY TYPE CODE TESTS RESULT OUT OF [...] 8.4 Performed By: #### L101.9900, L100.0500 #### [facility] [address] [place], [address] LICENSING REPRESENTATIVE OFFICE VISIT Observed: 01/29/2018 Status: F Source: [place] REPORT 1:16 AM [facility] REPOSITORY [facility] [address] [place] [address] OFFICE VISIT Date of Service: 01/27/18 MR#: [id number] Acct: [id number] Name: GAIL LACEY Rep #: [id number] : 1985 Provider: Gini Alcala MD Age/Sex: 32/F Location[place] [facility] [place] Status: Signed Intake Vital Signs01/27/18 Height 5 ft 8 in 01/27/18 Weight: 228 lb 01/27/18 Body Mass Index (BMI) 34.7 Intake Visit Reasons: New annual, Breast Cancer Chief Complaint: New annual Aged Or Disabled Carer Required: No Is patient in pain?: Yes [...] menopausal: No Patient : No : No [facility] Medical History Anxiety (Acute) Asthma (Acute) BLADDER/URINARY [...] 2007) SURGICAL PREPARATION LEFT LATERAL BREAST (Acute) [place] teeth extracted (Acute) Family History Mother Psychiatric [...] Past Pregnancies Del. DateName GA/Weeks Outcome Route [facility] WeighInfant GeLabor LgtAnesthesiDel LocatProvider FOB t n [...] no acute distress, well developed, well groomed [facility] Head: normal to inspection, normocephalic Ears: hearing [...] HPV 16/18,45 Collected: 01/27/2018 Status: F Source: [place] 1:00 PM [facility] REPOSITORY Order Comment: CYTOLOGY INFORMATION: - CLINICAL INFORMATION: HYSTERECTOMY - DATE LMP/MENOPAUSE: LMP - COLLECTION VIAL: Thin Prep Vial - NEWSPAPER CORRESPONDENT SOURCE: CERVICAL - COLLECTION TECHNIQUE: CX BROOM ONLY Specimen Comment: [id number] Specimen Comment: No. of containers..01 ThinPrep Vial [...] Normal PERFORM Comment Result Comment: Karen Huerta, Aerospace Engineer Officer Armament (ASCP) LAB L7400.2575 . Normal TEST METHOD [...] types (16/18/31/33/35/39/45/ 51/52/56/58/59/66/68) without differentiation. Performed at: - [facility] [id number] [place]: Allison Pimentel MD, Phone: [phone] Performed at: - [facility] [id number] [place]: Allison Pimentel MD, Phone: [phone] Performed By: #### L7400.0280 #### [facility] (refer to report for specific site) refer to report for address and phone number ERYTHROCYTE SED RATE Collected: 01/24/2018 Status: F Source: [place] 3:00 PM [facility] REPOSITORY TYPE CODE TESTS RESULT OUT OF RANGE REFERENCE UNITS LAB L102.0000 0-20 mm/hr High SED RATE 33 Performed By: #### L101.9900, L100.0500 #### [facility] [address] [place], [place], [address] CBC-COMPLETE BLOOD CNT Collected: 01/24/2018 Status: F Source: [place] NO DIFF 3:00 PM [facility] REPOSITORY TYPE CODE TESTS RESULT OUT OF [...] 8.3 Performed By: #### L101.9900, L100.0500 #### [facility] [address] [place], [address] COMPREHENSIVE METABOLIC Collected: 01/24/2018 Status: F Source: [facility] 3:00 PM [facility] REPOSITORY TYPE CODE TESTS RESULT OUT OF [...] 10 Performed By: #### L500.4050, L501.6710 #### [facility] [address] [facility] [place], [address] CRP Collected: 01/24/2018 Status: F Source: [place] 3:00 PM [facility] REPOSITORY TYPE CODE TESTS RESULT OUT OF RANGE REFERENCE UNITS LAB L501.6710 0.0-3.0 mg/L High 39.80 C-REACTIVE PROT Result Comment: C-Reactive Protein (CRP) provides useful information for the diagnosis, therapy and monitoring of inflammatory processes and associated diseases. For the evaluation of Relative Risk for Cardiovascular Disease, a High Sensitivity CRP (HSCRP) should be ordered. Performed By: #### L500.4050, L501.6710 #### [facility] [address] [place], [address] DISCHARGE SUMMARY Observed: 01/20/2018 Status: F Source: [place] 7:57 AM [facility] REPOSITORY [facility] Medical Records Department [address] [place] [address] Discharge Summary 01/17/18 1427 MR#: [id number] Acct: [id number] Name: GAIL LACEY Rep #: [id number] : 1985 32 From: Jose Robertson MD PCP: Kaden Robles MD Status: DIS IN Y Location: [place] [id number] Discharge Date and Diagnosis Date of Admission: [...] Up With: Jose Robertson MD - call [phone] if any questions. When: Wednesday01/24/18 at wound center at 1000am. Please Follow Up With: Evangelist Moseley MD - call [phone] to set that up. When: couple of weeks to schedule endoscopy. Additional Instructions: Home Health to draw CBC, CMP, ESR, CRP qMonday. Please fax results to the Wound Center at [phone]. Disposition: Home with Home Health Minutes spent on discharge:: 40 Patient Condition:: Stable Medical Necessity - Tobacco Use Smoking Status: Former smoker Tobacco Use: Non-smoker Meaningful Use Info Meaningful Use Diagnoses (Choose all that apply): None applicable 01/20/18 0757 <Electronically signed by Jose Robertson MD> Date Jose Robertson MD Cosigner Signature (if applicable): Date CC: Mily Villar MD; Kaden Robles MD; Jillian Moseley MD; Jose Robertson MD; Owen Edouard MD; Albert Gomez MD; Devon Xiong DO; [facility] Signed DISCHARGE INSTRUCTION Observed: 01/17/2018 Status: F Source: [place] 5:07 PM [facility] REPOSITORY [facility] Medical Records Department [address] [place] [address] Instructions for Home/Discharge Instructions 01/17/18 1649 MR#: [id number] Acct: [id number] Name: GAIL LACEY Jordan Rep #: [id number] : 1985 32 From: Jose Robertson MD [...] Up With: Jose Robertson MD - call [phone] if any questions. When: Wednesday01/24/18 at wound center at 1000am. Please Follow Up With: Evangelist Moseley MD - call [phone] to set that up. When: couple of weeks to schedule endoscopy. Proposed Discharge Date: 01/17/18 01/17/18 1707 <Electronically signed by Jose Robertson MD> Date Jose Robertson MD CC: aKden Robles MD; Evangelist Moseley MD; Owen Edouard MD; Devon Xiong DO; [facility] CONSULTATION Observed: 01/17/2018 Status: F Source: [place] 9:46 AM [facility] Medical Records Department [address] [place] [address] Consultation 01/17/18 0934 MR#: [id number] Acct: [id number] Name: GAIL LACEY Rep #: [id number] : 1985 32 From: Owen Edouard MD PCP: Kaden Robles MD Status: ADM IN Location: [place] PW487-7 - Problem List (1) Cancer of left [...] diameter poorly differentiated, grade 3, ER negative, MN weak positive, Her- 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 Margins were negative for both invasive and noninvasive cancer. Patient started systemic adjuvant therapy under the care of in [facility] on May 18, 2017 where she received 3 cycles of treatment then transferred to [facility] to be close to home. She [...] her wound healing was protracted. Treatment: - [facility] X6 cycles -08/2017- (delays due to delayed wound healing, cytopenias and febrile neutropenia). - Herceptin maintenance 10/04/2017 - Tamoxifen 11/15/2017- Adjuvant radiation therapy; 4256 cGy of mixed 6, 10, and 15 MV photons in 16 fractions to the left breast with a 3D conformal technique consisting of SAO TOMEAN, LPO, and MONTERO carmen with field and field to improve dose homogeneity. A sequential boost consisting of 1000 cGy of mixed 10 and 15 MV photon in 4 fractions was delivered to the lumpectomy bed with a 3D conformal technique consisting of SAO TOMEAN and LPO carmen. This brought the total [...] Reviewed 12/27/17 @ 11:54 by Mile Healy) [facility] FEBRILE NEUTROPENIA DISCHARGED 07/14/2017 (Acute) History of lumpectomy (Acute) History of partial mastectomy of left breast (Acute 03/2017) PORT PLACEMENT (Acute 04/2017) Plantar wart (Acute 2007) SURGICAL PREPARATION LEFT LATERAL BREAST (Acute) [place] teeth extracted (Acute) Maternal Family History: Family [...] (T1c, N0, M0) high-grade G3, ER negative, MN weak positive, HER- 2 positive. Patient is [...] METABOLIC Collected: 01/17/2018 Status: F Source: [place] 5:34 AM [facility] REPOSITORY Order Comment: SPECIMEN OBTAINED FROM LINE [...] By: #### L500.4050, L501.6710, L100.0500, L101.9900 #### [facility] [address] [place], [place], [address] CRP Collected: 01/17/2018 Status: F Source: [place] 5:34 AM [facility] REPOSITORY Order Comment: SPECIMEN OBTAINED FROM LINE [...] By: #### L500.4050, L501.6710, L100.0500, L101.9900 #### [facility] [address] [place], [place], [address] CBC-COMPLETE BLOOD CNT Collected: 01/17/2018 Status: F Source: [place] NO DIFF 5:34 AM [facility] REPOSITORY Order Comment: SPECIMEN OBTAINED FROM LINE [...] By: #### L500.4050, L501.6710, L100.0500, L101.9900 #### [facility] [address] [facility] [place], [place], [address] ERYTHROCYTE SED RATE Collected: 01/17/2018 Status: F Source: [place] 5:34 AM [facility] REPOSITORY Order Comment: SPECIMEN OBTAINED FROM LINE DRAW TYPE CODE TESTS RESULT OUT OF RANGE REFERENCE UNITS LAB L102.0000 0-20 mm/hr High SED RATE 22 Performed By: #### L500.4050, L501.6710, L100.0500, L101.9900 #### [facility] [address] [facility] [facility] [place], [place], [address] CBC W/DIFF, AUTOMATED Collected: 01/16/2018 Status: F Source: [place] 5:05 [facility] REPOSITORY Order Comment: SPECIMEN OBTAINED FROM LINE [...] Lymph 0.98 Performed By: #### L100.0100 #### [facility] [address] [place], [address] BASIC METABOLIC Collected: 01/16/2018 Status: F Source: [place] PROFILE (BMP) 5:05 AM [facility] REPOSITORY Order Comment: SPECIMEN OBTAINED FROM LINE [...] GAP 8 Performed By: #### L500.2500 #### [facility] [address] [place], [place], [address] HH, HEMOGLOBIN AND Collected: 01/15/2018 Status: F Source: [place] HEMATOCRIT 4:20 PM [facility] REPOSITORY Order Comment: IVT DRAW/PORT LINE TYPE CODE TESTS RESULT OUT OF RANGE REFERENCE UNITS LAB L100.1300 12.0-15.0 g/dl Low HGB 8.6 LAB L100.1400 37-47 % Low HCT 26.2 Performed By: #### L100.0600 #### [facility] [address] [facility] [address] [facility] [address] [place], [place], [address] TYPE AND SCREEN Collected: 01/15/2018 Status: F Source: [place] 12:10 PM [facility] REPOSITORY Order Comment: CMV NEG? N Number [...] NEGATIVE Screen Performed By: #### B101.7450 #### [facility] [address] [place], [address] Collected: 01/15/2018 Status: F Source: [place] 12:10 PM [facility] REPOSITORY TYPE CODE TESTS RESULT OUT OF REFERENCE UNITS RANGE LAB U100.0000 [id number] TRANSFUSED PRODUCT: T AND S with Crossmatch, Red Cells COUNT: 2 Performed By: #### U100.0000 #### [facility] - refer to report for specific site CBC W/DIFF, AUTOMATED Collected: 01/15/2018 Status: F Source: [place] 6:20 AM [facility] REPOSITORY Order Comment: SPECIMEN OBTAINED FROM LINE [...] Lymph 0.93 Performed By: #### L100.0100 #### [facility] [address] [place], [place], [address] BASIC METABOLIC Collected: 01/15/2018 Status: F Source: [place] PROFILE (BMP) 6:20 AM [facility] REPOSITORY Order Comment: SPECIMEN OBTAINED FROM LINE [...] 6 Performed By: #### L500.2500, L501.6710 #### [facility] [address] [place], [place], [address] CRP Collected: 01/15/2018 Status: F Source: [place] 6:20 AM [facility] REPOSITORY Order Comment: SPECIMEN OBTAINED FROM LINE [...] ordered. Performed By: #### L500.2500, L501.6710 #### [facility] [address] [place], [address] VANCOMYCIN, TROUGH Collected: 01/14/2018 Status: F Source: [place] LEVEL 6:10 PM [facility] REPOSITORY Order Comment: Time Medication is to [...] (Ventilator/Healtcare Associated) -Sepsis PLEASE CONTACT PHARMACY SERVICES (#[id number]) FOR INTERPRETATION OF RESULTS. Performed By: #### L501.8820 #### [facility] [address] [place], [address] ERYTHROCYTE SED RATE Collected: 01/14/2018 Status: F Source: [place] 7:45 AM [facility] REPOSITORY TYPE CODE TESTS RESULT OUT OF RANGE REFERENCE UNITS LAB L102.0000 0-20 mm/hr High SED RATE 23 Performed By: #### L101.9900, L100.0500 #### [facility] [address] [place], [address] CBC-COMPLETE BLOOD CNT Collected: 01/14/2018 Status: F Source: [place] NO DIFF 7:45 AM [facility] REPOSITORY TYPE CODE TESTS RESULT OUT OF [...] 7.7 Performed By: #### L101.9900, L100.0500 #### [facility] [address] [place], [place], [address] COMPREHENSIVE METABOLIC Collected: 01/14/2018 Status: F Source: [facility] 7:45 AM [facility] REPOSITORY TYPE CODE TESTS RESULT OUT OF [...] Performed By: #### L500.4050, L501.6710, L506.0500 #### [facility] [address] [place], [address] CRP Collected: 01/14/2018 Status: F Source: [place] 7:45 AM [facility] REPOSITORY TYPE CODE TESTS RESULT OUT OF RANGE REFERENCE UNITS LAB L501.6710 0.0-3.0 mg/L High 102.00 C-REACTIVE PROT Result Comment: C-Reactive Protein (CRP) provides useful information for the diagnosis, therapy and monitoring of inflammatory processes and associated diseases. For the evaluation of Relative Risk for Cardiovascular Disease, a High Sensitivity CRP (HSCRP) should be ordered. Performed By: #### L500.4050, L501.6710, L506.0500 #### [facility] [address] [place], [address] PREALBUMIN Collected: 01/14/2018 Status: F Source: [place] 7:45 AM [facility] REPOSITORY TYPE CODE TESTS RESULT OUT OF REFERENCE UNITS RANGE LAB L506.0500 20.0-40.0 mg/dL Low PREALBUMIN 12.0 Performed By: #### L500.4050, L501.6710, L506.0500 #### [facility] [address] [place], [address] MRSA WOUND DNA BY Collected: 01/13/2018 Status: F Source: [place] PCR 11:10 PM [facility] REPOSITORY Order Comment: Comments: obtain at time of vac removal today Specimen Source? left breast wound TYPE CODE TESTS RESULT OUT OF RANGE REFERENCE UNITS LAB L8200.1100 Negative Normal MRSA Negative RESULT LAB L8200.1150 Negative Normal SA RESULT NEGATIVE Performed By: #### L8200.1075 #### [facility] [address] [place], [place], [address] Observed: 01/13/2018 Status: F Source: [place] CULTURE, DEEP WOUND 11:10 PM [facility] REPOSITORY Comments: obtain cx when vac removed. [...] <=20 S (NF) indicates non-formulary drug at [facility]. Approval by Infectious Disease Specialist [...] 1 S (NF) indicates non-formulary drug at [facility]. Approval by Infectious Disease Specialist required before non-formulary drugs may be ordered and/or dispensed. * CLSI guidelines does not recommend testing of cephalosporins. This interpretation is deduced from Beta-lactam/penicillin results. Cult, Anaerobic No anaerobic bacteria isolated. Performed By: #### M100.1500 #### [facility] [address] [place], [place], [address] CONSULTATION Observed: 01/13/2018 Status: F Source: [place] 6:53 PM [facility] REPOSITORY [facility] Medical Records Department [address] [place] [address] Consultation 01/13/18 1655 MR#: [id number] Acct: [id number] Name: GAIL LACEY Rep #: [id number] : 1985 32 From: Jillian Kapadia PCP: [...] pathology demonstrating infiltrating ductal carcinoma (ER negative, MN weakly positive, HER2/dilia positive) with development post-lumpectomy [...] completion mastectomy who now re-presents to the [facility] ED on 01/13/18 with onset of fever [...] obtained. VAC maintained in place pending Dr. Claudette thomas. Patient admitted per Dr. Robertson, initiated on [...] PO QHS 01/03/18 Surgical History: - - [place] teeth, [place] Wart, Partial Mastectomy 04/06/17, Port Placement, left lateral breast with incision and drainage and excision nonhealing post-lumpectomy seroma ulcer with 9 cm complex secondary wound closure, recent Revision left breast reconstruction with excision painful infected lateral radiation lumpectomy scar contour deformity with completion mastectomy. Psychiatric History: Anxiety, Depression NEWSPAPER CORRESPONDENT History: No pertinent NEWSPAPER CORRESPONDENT history Lives: Spouse/ Significant Other Smoking Status: [...] Sl. Cloudy Urine pH 5.0 Ur Specific [place] 1.020 Assessment/Plan Active and Suspected Problems (Last [...] pathology demonstrating infiltrating ductal carcinoma (ER negative, MN weakly positive, HER2/dilia positive) S/P 01/04/18 revision of left breast reconstruction with excision painful infected lateral radiation lumpectomy scar contour deformity with completion mastectomy who now re-presents to the [facility] ED on 01/13/18 with onset of fever [...] ductal carcinoma noted to be ER negative, MN weakly positive, HER2/dilia positive. Maintain on tamoxifen [...] lovenox. Code Visit Office Visits / Consults: [id number] IP Consult L4 01/13/18 1853 <Electronically signed by Jillian Kapadia > Date Jillian Kapadia Cosigner Signature (if applicable): Date CC: Kaden Robles MD Signed EMERGENCY DEPARTMENT Observed: 01/13/2018 Status: F Source: [place] SUMMARY 6:00 PM [facility] REPOSITORY [facility] Medical Records Department [address] [place] [address] Emergency Department Summary 01/13/18 1616 MR#: [id number] Acct: [id number] Name: GAIL LACEY Rep #: [id number] : 1985 32 From: Kathia Arguelles MD [...] breast cancer This note was generated with [email or web address] dictation software. It may contain incorrect words, [...] your Primary Care Provider. Call [facility] ([phone]) or report to the closest Emergency Room. Call 911 if necessary. 01/13/18 1800 <Electronically signed by Kathia Arguelles MD> Date Kathia Arguelles MD Cosigner Signature (If Indicated): Date CC: Kaden Robles MD Observed: 01/13/2018 Status: F Source: [place] CULTURE, BLOOD (WB) 5:00 PM [facility] REPOSITORY BC No growth in 5 days. Performed By: #### M200.1000 #### [facility] [address] [place], [address] BASIC METABOLIC Collected: 01/13/2018 Status: F Source: [place] PROFILE (BMP) 4:50 PM [facility] REPOSITORY TYPE CODE TESTS RESULT OUT OF [...] GAP 10 Performed By: #### L500.2500 #### [facility] [address] [place], [place], [address] LACTIC ACID Collected: 01/13/2018 Status: F Source: [place] 4:50 PM [facility] REPOSITORY Order Comment: Yes/No query for Sepsis Lactate Rule Y TYPE CODE TESTS RESULT OUT OF RANGE REFERENCE UNITS LAB L503.6005 0.4-2.0 mmol/L Normal LACTIC ACID 1.0 Performed By: #### L503.6005 #### [facility] [address] [place], [place], [address] CBC W/DIFF, AUTOMATED Collected: 01/13/2018 Status: F Source: [place] 4:50 PM [facility] REPOSITORY TYPE CODE TESTS RESULT OUT OF [...] Lymph 1.08 Performed By: #### L100.0100 #### [facility] [address] [facility] [place], [address] MAGNESIUM Collected: 01/13/2018 Status: F Source: [place] 4:50 PM [facility] REPOSITORY TYPE CODE TESTS RESULT OUT OF RANGE REFERENCE UNITS LAB L501.5200 1.6-2.6 mg/dL Normal MG 1.7 Result Comment: Please note revised Magnesium reference range effective 2017. Performed By: #### L501.5200, L501.9520, L506.0400 #### [facility] [address] [facility] [place], [address] THYROID STIM HORMONE Collected: 01/13/2018 Status: F Source: [place] (TSH) 4:50 PM [facility] REPOSITORY TYPE CODE TESTS RESULT OUT OF RANGE REFERENCE UNITS LAB L501.9520 0.358-3.74 uIU/mL High TSH 11.20 Performed By: #### L501.5200, L501.9520, L506.0400 #### [facility] [address] [place], [address] T4 FREE DIRECT Collected: 01/13/2018 Status: F Source: [place] 4:50 PM [facility] REPOSITORY TYPE CODE TESTS RESULT OUT OF RANGE REFERENCE UNITS LAB L506.0400 0.76-1.46 ng/dL Normal T4 FREE 0.91 DIRECT Performed By: #### L501.5200, L501.9520, L506.0400 #### [facility], [address] Observed: 01/13/2018 Status: F Source: [place] CULTURE, BLOOD (WB) 4:50 PM [facility] REPOSITORY BC No growth in 5 days. Performed By: #### M200.1000 #### [facility] [place], [address] URINALYSIS, COMPLETE Collected: 01/13/2018 Status: F Source: [place] 4:24 PM [facility] REPOSITORY Order Comment: Order Date: 01/13/18 How [...] AMORPHOUS URATE Performed By: #### L400.0001 #### [facility] [address] [facility] [place], [address] CHEST 1 VIEW Observed: 01/13/2018 Status: F Source: [place] (PORTABLE) 4:07 PM [facility] REPOSITORY [facility] Imaging Services [address] [place] [address] Chest 1 View (Portable) MR#: [id number] Acct: [id number] Name: GAIL LACEY Rep #: [id number] : 1985 F 32 From: Cici Rosario MD PCP: Kaden Robles MD Status: REG ER Study: Chest 1 View (Portable) Date of Exam: 01/13/18 Exam# [id number] Ordering Dr: Kathia Arguelles MD STUDY: X-RAY [...] CC: Kathia Arguelles MD; Kaden Robles MD Asp Net Programmer: Signed 12 LEAD ELECTROCARDIOGRAM Observed: 01/13/2018 Status: F Source: [place] 4:01 PM [facility] REPOSITORY [facility] Cardiovascular Services [address] [place] [address] 12 Lead EKG 01/04/18 0544 MR#: [id number] Acct: [id number] Name: GAIL LACEY Rep #: [id number] : 1985 32 From: Francisco Restrepo MD Attending Dr: Jose Robertson MD Status: DIS IN Ordering Dr: Isac Bryant MD Date: 01/04/18 Location[place] [facility] [place] Sex: F C Admitted: 01/03/18 Test Reason [...] BPM Confirmed by FRANCISCO RESTREPO MD ([id number]), health editor BUZZ BARCLAY ([id number]) on 01/13/2018 4:00:40 PM Referred By: Jose Robertson Confirmed By:FRANCISCO RESTREPO MD 01/13/18 1600 Date Francisco Restrepo MD CC: Kaden Robles MD; Isac Bryant MD; Jose Robertson MD Signed DISCHARGE SUMMARY Observed: 01/09/2018 Status: F Source: [place] 10:25 AM [facility] REPOSITORY [facility] Medical Records Department [address] [place] [address] Discharge Summary 01/06/181954 MR#: [id number] Acct: [id number] Name: GAIL LACEY Rep #: [id number] : 1985 32 From: Jose Robertson MD PCP: Kaden Robles MD Status: DIS IN Y Location: [place] [address] Discharge Date and Diagnosis Date of Admission: [...] Lateral] [RAD] Urgent Consultations 01/04/18 06:52 Consult: Onc/Wound/greenhouse transplanter Routine Comment: Reason for Consult:: Left breast- [...] infiltrating ductal carcinoma which was ER negative, MN weakly positive, and HER2/dilia positive. She was [...] Up With: Jose Robertson MD - call [phone] if questions. When: wednesday01/10/18 at wound center at 900 am. Please Follow Up With: Evangelist Moseley MD When: next couple weeks to schedule endoscopy. Disposition: Home with Home Health Minutes spent on discharge:: 35 Patient Condition:: Stable Medical Necessity - Tobacco Use Smoking Status: Former smoker Meaningful Use Info Meaningful Use Diagnoses (Choose all that apply): None applicable 01/09/18 1025 <Electronically signed by Jsoe Robertson MD> Date Jose Robertson MD Cosigner Signature (if applicable): Date CC: Kaden Robles MD; Evangelist Moseley MD; Jose Robertson MD; Owen Edouard MD; Devon Xiong DO; [facility] Signed DISCHARGE INSTRUCTION Observed: 01/06/2018 Status: F Source: [place] 7:55 PM [facility] REPOSITORY [facility] Medical Records Department [address] [place] [address] Instructions for Home/Discharge Instructions 01/06/181947 MR#: [id number] Acct: [id number] Name: GAIL LACEY Rep #: [id number] : 1985 32 From: Jose Robertson MD [...] Up With: Jose Robertson MD - call [phone] if questions. When: wednesday01/10/18 at wound [facility] at 900 am. Please Follow Up With: Evangelist Moseley MD When: next couple weeks to schedule endoscopy. Proposed Discharge Date: 01/06/18 01/06/181954 <Electronically signed by Jose Robertson MD> Date Jose Robertson MD CC: Kaden Robles MD; Evangelist Moseley MD; Owen Edouard MD; Devon Xiong DO; [facility] CHEST PA AND LATERAL Observed: 01/06/2018 Status: F Source: [place] 3:53 PM [facility] REPOSITORY [facility] Imaging Services [address] [place] [address] Chest PA and Lateral MR#: [id number] Acct: [id number] Name: GAIL LACEY Rep #: [id number] : 1985 F 32 From: Sayda Noel MD PCP: Kaden Robles MD Status: ADM IN Study: Chest PA and Lateral Date of Exam: 01/06/18 Exam# [id number] Ordering Dr: Jose Robertson MD STUDY: X-RAY [...] CC: Kaden Robles MD; Jose Robertson MD Asp Net Programmer: Signed HISTORY AND PHYSICAL Observed: 01/06/2018 Status: F Source: [place] EXAM 2:29 AM [facility] REPOSITORY [facility] Medical Records Department [address] [place] [address] History and Physical 01/03/182033 MR#: [id number] Acct: [id number] Name: JOANGAIL CLAROS Rep #: [id number] : 1985 32 From: Jose Robertson MD PCP: Kaden Robles MD Status: ADM IN Location: [address] History and Physical Date of Admission: 01/03/18 HISTORY OF PRESENT ILLNESS 32 year old woman presents with increasing pain in her left lateral breast after having undergone radiation therapy for breast cancer. She was first diagnosed with left breast cancer and underwent a lumpectomy and sentinel lymph node biopsy in 04/03. Pathology showed poorly differentiated infiltrating ductal carcinoma which was ER negative, MN weakly positive, and HER2/dilia positive. She was [...] breast Chemotherapy induced neutropenia PAST SURGICAL HISTORY: [place] teeth 2002 all 4 Plan[place] Wart 2007 Partial Mastectomy 04/06/17 - getting chemotherapy and will follow with radiation therapy Port Placement 05/03 Hospital-Febrile Neutropenia discharged 07/14/17 Occasional psychiatric hospitalized [id number] surgical preparation left lateral breast with incision [...] She voices understanding and wishes to proceed. 01/06/18 0229 <Electronically signed by Jose Robertson MD> Date Jose Robertson MD Cosigner Signature: Date (if applicable) CC: Kaden Robles MD; Jose Robertson MD; Owen Edouard MD; Devon Xiong DO; [facility] Signed CBC-COMPLETE BLOOD CNT Collected: 01/05/2018 Status: F Source: [place] NO DIFF 5:30 AM [facility] REPOSITORY Order Comment: SPECIMEN OBTAINED FROM LINE [...] MPV 8.1 Performed By: #### L100.0500 #### [facility] [address] [place], [address] BASIC METABOLIC Collected: 01/05/2018 Status: F Source: [place] PROFILE (BMP) 5:30 AM [facility] REPOSITORY Order Comment: SPECIMEN OBTAINED FROM LINE [...] Normal 10 Performed By: #### L500.2500 #### [facility] [address] [place], [address] PLASTIC SURGERY Observed: 01/05/2018 Status: F Source: [place] VISIT REPORT 1:06 AM [facility] REPOSITORY [facility] [address] [facility] [address] [place] [address] OFFICE VISIT Date of Service: 12/09/17 MR#: [id number] Acct: [id number] Name: GAIL LACEY #: [id number] : 1985 Provider: Jose Robertson MD Age/Sex: 32/F Location: [facility] Status: Signed Intake Vital Signs12/09/17 Height 5 ft 8 in 12/09/17 Weight: 241 lb 6 oz Intake Visit Reasons: evaluation breast reconstruction Aged Or Disabled Carer Required: No Accompanied by: Friend Is patient [...] 2007) SURGICAL PREPARATION LEFT LATERAL BREAST (Acute) [place] teeth extracted (Acute) Family History Mother Psychiatric [...] infiltrating ductal carcinoma which was ER negative, MN weakly positive, and HER2/dilia positive. She was [...] breast Chemotherapy induced neutropenia PAST SURGICAL HISTORY: [place] teeth 2003 all 4 [place]art 2008 Partial Mastectomy 04/06/17 - getting chemotherapy and will follow with radiation therapy Port Placement 05/03 Hospital-Febrile Neutropenia discharged 07/14/17 Occasional psychiatric hospitalized [phone] surgical preparation left lateral breast with incision [...] PO .4x/day prn 30 tabs 0RF Kelly Kimbrough Discontinued Reason: Order edited - Discontinu [...] F Source: [place] (CHOOSE SIDE 7:30 AM [facility] REPOSITORY Patient: GAIL LACEY : 1985 (32/F) Acct Num: [id number] Phys: Marcelo TREVIZO,Jose Unit Num: [id number] Loc: MS2 [id number] Specimen: [id number] Received: 01/05/18821 Spec Type: BREAST TISSUES TISSUES: [...] in greatest dimension. No orientation is provided. Neon Sign Erector sections from this fragment of tissue are submitted in cassettes 1-4. The mastectomy specimen is not oriented. The noncutaneous surgical surfaces are inked in black ink. Serial sections reveal yellow to white cut surfaces. No distinct mass lesion, cyst or changes of previous biopsy are seen. Dense white-pink tissue is noted close to one peripheral margin. Neon Sign Erector sections from the mastectomy fragment are submitted in cassettes 5-12 as follows : 5 nipple and areola, 6-10 indurated tissue at periphery of specimen, 11 AND 12 assistance representative sections from mid portion of specimen. / AM:sharon 01/05/18 TC :5 CPT: 70830 HEADER OPERATION: Revision left breast reconstruction with [...] on file> Performed By: #### PBREAST #### [facility] [address] [place] [address]. [place], [address] CBC W/DIFF, AUTOMATED Collected: 01/04/2018 Status: F Source: [place] 7:05 AM [facility] REPOSITORY TYPE CODE TESTS RESULT OUT OF [...] 1.00 Performed By: #### L100.0100, L300.4310 #### [facility] [address] [place], [place], [address] PARTIAL THROMBOPLAST Collected: 01/04/2018 Status: F Source: [place] TIME 7:05 AM [facility] REPOSITORY TYPE CODE TESTS RESULT OUT OF RANGE REFERENCE UNITS LAB L300.4310 24.1-36.2 Seconds Normal PTT 27.3 Performed By: #### L100.0100, L300.4310 #### [facility] [address] [place], [address] Observed: 01/04/2018 Status: F Source: [place] CULTURE, DEEP WOUND 12:00 AM [facility] REPOSITORY Order Date: 05/19/17 Comments: COLLECTED IN [...] 1 S (NF) indicates non-formulary drug at [facility]. Approval by Infectious Disease Specialist required before non-formulary drugs may be ordered and/or dispensed. * CLSI guidelines does not recommend testing of cephalosporins. This interpretation is deduced from Beta-lactam/penicillin results. Cult, Anaerobic No growth in 5 days. Performed By: #### M100.1500 #### [facility] [place], [address] Observed: 01/04/2018 Status: F Source: LUZMA VIEIRA W/ 12:00 [facility] [id number] REPOSITORY Comments: COLLECTED IN OR- LEFT BREAST TISSUE Is this test to exclude patient from TB Isolation? Tiffany Rocha,[id number] TESTING PERFORMED AT [facility]. ORIGINAL REPORT ON FILE IN LAB CONTAINS ADDITIONAL TEST SITE INFORMATION. CUF No yeast or mold isolated after [address] TESTING PERFORMED AT [facility]. ORIGINAL REPORT ON FILE IN LAB CONTAINS ADDITIONAL TEST SITE INFORMATION. Fungus Stain No yeast or mold observed. Performed By: #### M600.1900 #### [facility] [address] [place], [place], [address] ,URINE Collected: 01/03/2018 Status: F Source: [place] 10:35 PM [facility] REPOSITORY TYPE CODE TESTS RESULT OUT OF REFERENCE UNITS RANGE LAB L400.8000 Negative Normal HCGUQUAL Negative Result Comment: Very dilute urine specimens, as indicated by a low specific gravity, may not contain assistance representative levels of hCG. If is still suspected, a first morning urine specimen should be collected 48 hours later and tested. Performed By: #### L400.7600 #### [facility] [address] [facility] [address] [place], [place], [address] CBC-COMPLETE BLOOD CNT Collected: 01/03/2018 Status: F Source: [place] NO DIFF 11:10 AM [facility] REPOSITORY TYPE CODE TESTS RESULT OUT OF [...] 8.0 Performed By: #### L100.0500, L101.9900 #### [facility] [address] [place], [address] ERYTHROCYTE SED RATE Collected: 01/03/2018 Status: F Source: [place] 11:10 AM [facility] REPOSITORY TYPE CODE TESTS RESULT OUT OF RANGE REFERENCE UNITS LAB L102.0000 0-20 mm/hr Normal SED RATE < 1 Performed By: #### L100.0500, L101.9900 #### [facility] [address] [place], [address] COMPREHENSIVE METABOLIC Collected: 01/03/2018 Status: F Source: [facility] 11:10 AM [facility] REPOSITORY TYPE CODE TESTS RESULT OUT OF [...] Performed By: #### L500.4050, L501.6710, L506.0500 #### [facility] [address] [place], [address] CRP Collected: 01/03/2018 Status: F Source: [place] 11:10 AM [facility] REPOSITORY TYPE CODE TESTS RESULT OUT OF RANGE REFERENCE UNITS LAB L501.6710 0.0-3.0 mg/L High 4.19 C-REACTIVE PROT Result Comment: C-Reactive Protein (CRP) provides useful information for the diagnosis, therapy and monitoring of inflammatory processes and associated diseases. For the evaluation of Relative Risk for Cardiovascular Disease, a High Sensitivity CRP (HSCRP) should be ordered. Performed By: #### L500.4050, L501.6710, L506.0500 #### [facility] [address] [place], [place], [address] PREALBUMIN Collected: 01/03/2018 Status: F Source: [place] 11:10 AM [facility] REPOSITORY TYPE CODE TESTS RESULT OUT OF RANGE REFERENCE UNITS LAB L506.0500 20.0-40.0 mg/dL Normal PREALBUMIN 24.8 Performed By: #### L500.4050, L501.6710, L506.0500 #### [facility] [address] [place], [address] THYROID STIM HORMONE Collected: 01/03/2018 Status: F Source: [place] (TSH) 11:10 AM [facility] REPOSITORY TYPE CODE TESTS RESULT OUT OF RANGE REFERENCE UNITS LAB L501.9520 0.358-3.74 uIU/mL High TSH 9.53 Performed By: #### L501.9520 #### [facility] [address] [place], [address] BREAST W/O AND/OR W Observed: 01/03/2018 Status: F Source: [place] CONT BILAT 10:36 AM [facility] REPOSITORY [facility] Imaging Services [address] [place] [address] Breast w/o and/or W Cont Bilat MR#: [id number] Acct: [id number] Name: GAIL LACEY Rep #: [id number] : 1985 F 32 From: Michael Humphries MD PCP: Kaden Robles MD Status: ADM IN Study: Breast w/o and/or W Cont Bilat Date of Exam: 01/03/18 Exam# [id number] Ordering Dr: Jose Robertson MD STUDY: BILATERAL [...] CC: Kaden Robles MD; Jose Robertson MD Asp Net Programmer: Signed SURGERY VISIT REPORT Observed: 12/28/2017 Status: F Source: [place] 10:17 AM [facility] [address] [facility] [address] [place] [address] OFFICE VISIT Date of Service: 12/22/17 MR#: [id number] Acct: [id number] Name: GAIL LACEY Rep #: [id number] : 1985 Provider: Evangelist Moseley MD Age/Sex: 32/F Location: [facility] Status: Signed Intake Vital Signs12/22/17 Height 5 ft 8 in 12/22/17 Weight: 238 lb 1.588 oz 12/22/17 Body Mass Index (BMI) 36.1 Intake Visit Reasons: Discuss upper and lower scope Chief Complaint: Breast cancer management Aged Or Disabled Carer Required: No Is patient in pain?: No [...] DAILY #30 cap 12/15/17 [Rx Confirmed 12/23/17] [facility] Medical History Anxiety (Acute) Asthma (Acute) BLADDER/URINARY [...] 2007) SURGICAL PREPARATION LEFT LATERAL BREAST (Acute) [place] teeth extracted (Acute) Family History Mother Psychiatric [...] person, oriented to place, oriented to time [facility] Head: normocephalic, atraumatic Ears: external ears normal [...] Evangelist Moseley MD> Date Evangelist Moseley MD Cosign Signature: Date (if applicable) CC: Kaden Robles MD ONCOLOGY VISIT REPORT Observed: 12/27/2017 Status: F Source: [place] 12:20 PM [facility] REPOSITORY [facility] [address] [place] [address] OFFICE VISIT Date of Service: 12/27/17 1129 MR#: [id number] Acct: [id number] Name: GAIL LACEY Rep #: [id number] : 1985 From: Owen Edouard MD Age/Sex: [...] diameter poorly differentiated, grade 3, ER negative, MN weak positive, Her- 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 Margins were negative for both invasive and noninvasive cancer. Patient started systemic adjuvant therapy under the care of in [facility] on May 18, 2017. She received her [...] 09, 2017 wishing to transfer care to [facility] for proximity to residence. Treatment: - TCH X6 cycles -08/2017- (delays due to delayed wound healing, cytopenias and febrile neutropenia). - Herceptin maintenance 10/04/2017 - Tamoxifen 11/15/2017- Adjuvant radiation therapy; 4256 cGy of mixed 6, 10, and 15 MV photons in 16 fractions to the left breast with a 3D conformal technique consisting of SAO TOMEAN, LPO, and MONTERO carmen with field and field to improve dose homogeneity. A sequential boost consisting of 1000 cGy of mixed 10 and 15 MV photon in 4 fractions was delivered to the lumpectomy bed with a 3D conformal technique consisting of SAO TOMEAN and LPO carmen. 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 Was seen by NEWSPAPER CORRESPONDENT.. Denies: Dysuria, Hematuria, Flank pain Musculoskeletal:: Reports: [...] (T1c, N0, M0) high-grade G3, ER negative, MN weak positive, HER- 2 positive. Patient is [...] 12/27/2017 Status: F Source: [place] 11:33 AM [facility] REPOSITORY Order Comment: Reason for Laboratory Test [...] Lymph 1.08 Performed By: #### L100.0100 #### [facility] [address] [place], [place], [address] COMPREHENSIVE METABOLIC Collected: 12/27/2017 Status: F Source: [facility] 11:33 AM [facility] REPOSITORY Order Comment: Reason for Laboratory Test [...] GAP 7 Performed By: #### L500.4050 #### [facility] [address] [place], [address] LICENSING REPRESENTATIVE OFFICE VISIT Observed: 12/23/2017 Status: F Source: [place] REPORT 2:51 PM [facility] REPOSITORY [facility] [address] [place] [address] OFFICE VISIT Date of Service: 12/23/17 MR#: [id number] Acct: [id number] Name: GAIL LACEY Rep #: [id number] : 1985 Provider: MUSA Sanchez Age/Sex: 32/F Location[place] [facility] [place] Status: Signed Intake Vital Signs12/23/17 Height 5 [...] 2007) SURGICAL PREPARATION LEFT LATERAL BREAST (Acute) [place] teeth extracted (Acute) Family History Mother Psychiatric [...] tamoxifen use Z79.810 Additional Codes Endometrial Biopsy (31753) 12/23/17 9570 <Electronically signed by Karly LARKIN> Date Karly LARKIN Cosigner Signature: Date (if applicable) CC: ECHOCARDIOGRAM COMPLETE Observed: 12/23/2017 Status: F Source: [place] 2:32 PM [facility] REPOSITORY [facility] Cardiovascular Services [address] [place] [address] [place] [address] Echo Complete 12/23/17 1309 MR#: [id number] Acct: [id number] Name: GAIL LACEY Rep #: [id number] : 1985 32 From: Francisco Restrepo MD Attending Dr: Erica Benitez NP Status: REG CLI Ordering Dr: Erica Benitez Date: 12/23/17 Location: [facility] Sex: F C Admitted: Reason For Study: [...] Ordering Physician: Erica Benitez Referring Physician: KADEN ROBLES Performed By: Lucia Gallardo, BRUNO, RVT 12/23/17 1431 Date Francisco Restrepo MD CC: Kaden Robles MD; Erica Benitez [facility] ATTENDANT Date Dictated: 12/23/17 1309 Date Transcribed: 12/23/17 1431 Asp Net Programmer: Signed ENDOMETRIAL BX/CURETTINGS Observed: 12/23/2017 Status: F Source: [place] 2:20 PM [facility] REPOSITORY Patient: GAIL LACEY : 1985 (32/F) Acct Num: [id number] Phys: Karly Sanchez NP Unit Num: [id number] Loc: [facility]SPEC Specimen: [id number] Received: 12/23/17 1834 Spec Type: ENDOM BX/C TISSUES TISSUES: Endometrium, NOS GROSS DESCRIPTION Received is one container labeled with the patient's name and not further designated. The specimen consists of multiple minute fragments of hernandez tissue that in aggregate measure 2.5 x 2 x <0.1 cm. The specimen is totally submitted in one cassette. / AM:sharon 12/24/17 TC:5 CPT: 90440 HEADER OPERATION: Endometrial biopsy PRE-OP DIAGNOSIS: Abnormal uterine bleeding TISSUE SUBMITTED: Endometrial lining MICROSCOPIC DESCRIPTION Slides are reviewed. MICROSCOPIC DIAGNOSIS Endometrial biopsy: Proliferative endometrium with focal glandular and stromal breakdown. SJ:sharon 12/27/17 Signed Zaheer Moura 12/27/17 <signature on file> Performed By: #### PEMB #### [facility] [place], [address] PROGRESS Observed: 12/21/2017 Status: COMPLETED Source: [place] 2:32 PM [facility] REPOSITORY HNO ID: [id number] Author: Judy Solares Service: (none) Author Type: [...] ONCOLOGY FOLLOW-UP Observed: 12/10/2017 Status: F Source: [place] VISIT 11:23 AM [facility] REPOSITORY [facility] Medical Records Department [address] [place] [address] Oncology Follow-Up Visit 12/09/17 1603 MR#: [id number] Acct: [id number] Name: GAIL LACEY Rep #: [id number] : 1985 32 From: Devon Xiong DO PCP: Kaden Robles MD Status: REG RCR Y Location: [facility] Date of Service: 12/09/17 Last Clinic Visit: 11/10/17 Diagnosis: Gail Lacey is a 32 year-old pre-menopausal female diagnosed with 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 04/06/2017: Patient [...] adjuvant therapy under the care of Dr. 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 She was instructed to call with any further questions or concerns in the interim. Devon Xiong DO, MS [employer]on Sorting Machine Feeder, Department of Radiation Oncology [facility] 12/10/17 1129 <Electronically signed by Devon Xiong DO> Date Devon Xiong DO CC: Signed PLASTIC SURGERY Observed: 12/04/2017 Status: F Source: [facility] [place] VISIT REPORT 10:25 AM [facility] REPOSITORY [facility] [address] [place] [address] OFFICE VISIT Date of Service: 10/27/17 MR#: [id number] Acct: [id number] Name: GAIL LACEY Rep #: [id number] : 1985 Provider: Jose Robertson MD Age/Sex: 32/F Location[facility] Status: Signed Intake Vital Signs10/27/17 Height 5 ft 8 in 10/27/17 Weight: 237 lb Intake Visit Reasons: postop surgery 08/05/17 Aged Or Disabled Carer Required: No Accompanied by: Friend Is patient [...] 2007) SURGICAL PREPARATION LEFT LATERAL BREAST (Acute) [place] teeth extracted (Acute) Family History Mother Psychiatric [...] breast Chemotherapy induced neutropenia PAST SURGICAL HISTORY: [place] teeth 2003 all 4 [place]art 2008 Partial Mastectomy 04/06/17 - getting chemotherapy and will follow with radiation therapy Port Placement 05/03 Hospital-Febrile Neutropenia discharged 07/14/17 Occasional psychiatric hospitalized [phone] surgical preparation left lateral breast with incision [...] Status: F Source: [facility] (TSH) 8:48 AM [facility] REPOSITORY TYPE CODE TESTS RESULT OUT OF RANGE REFERENCE UNITS LAB L501.9520 0.358-3.74 uIU/mL High TSH 6.91 Performed By: #### L501.9520 #### [facility] [place], [address] CBC W/DIFF, AUTOMATED Collected: 11/15/2017 Status: F Source: [facility] 8:28 AM [facility] REPOSITORY Order Comment: Reason for Laboratory Test [...] Lymph 0.79 Performed By: #### L100.0100 #### [facility] [address] [place], [address] END OF TREATMENT Observed: 11/12/2017 Status: F Source: [facility] SUMMARY 1:12 PM [facility] REPOSITORY [facility] Medical Records Department [address] [place] [address] End of Treatment Summary 11/12/17 1251 MR#: [id number] Acct: [id number] Name: GAIL LACEY Rep #: [id number] : 1985 32 From: Devon Xiong DO PCP: Kaden Robles MD Status: REG RCR Y Location: [facility] End of Treatment Summary: Diagnosis: Gail Lacey is a 32 year-old pre-menopausal female diagnosed with 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 04/06/2017: Patient [...] under the care of Dr. Ferreira in [facility], she received TCH 07/02/2017: She received [...] with a 3D conformal technique consisting of SAO TOMEAN, LPO, and MONTERO carmen with field and field to improve dose homogeneity. A sequential boost consisting of 1000 cGy of mixed 10 and 15 MV photon in 4 fractions was delivered to the lumpectomy bed with a 3D conformal technique consisting of SAO TOMEAN and LPO carmen. This brought the total [...] developed inframammary fold yeast infection treated with mxil-cbl-zojwphq antifungal cream * Grade 1 fatigue which was relieved by rest * Grade 2 breast pain with swelling and heaviness which was treated with qmjs-qnk-vmqswwo anti-inflammatory medications Exam at the end of [...] this patient. Sincerely, Devon Xiong DO, MS C[employer] Sorting Machine Feeder, Department of Radiation Oncology [facility] 11/12/17 1312 <Electronically signed by Devon Xiong DO> Date Devon Xiong DO CC: Kaden Robles MD; Jose Robertson MD; Owen Edouard MD; Devon Xiong DO Signed ONCOLOGY PROGRESS Observed: 11/11/2017 Status: F Source: [facility] NOTE 1:07 PM [facility] REPOSITORY [facility] Medical Records Department [address] [place] [address] Oncology Progress Note 11/11/17 1300 MR#: [id number] Acct: [id number] Name: GAIL LACEY Rep #: [id number] : 1985 32 From: Devon Xiong DO PCP: Kaden Robles MD Status: REG RCR Y Location: [facility] Date of Service: 11/11/17 Diagnosis: Gail Lacey is a 32 year-old pre-menopausal female diagnosed with 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 Dveon Xiong DO, MS C[employer] Sorting Machine Feeder, Department of Radiation Oncology [facility] 11/11/17 1302 <Electronically signed by Devon Xiong DO> Date Devon Xiong DO CC: Signed ALLERGIES ALLERGIES DATE TYPE / CODE NAME / CODE REACTION SEVERITY SOURCE Drug morphine/F006 chest tightening [facility] Allergy/768908061( 305808(RXNORM [facility] SNOMED CT) ) Hospital Repository Drug hydromorphone Laryngospasms [facility] Allergy/728801005( /J164308814(R Community SNOMED CT) XNORM) Hospital Repository Miscellaneous TAPE Other ME [facility] 9 Allergy/515912515( Community SNOMED CT) Hospital Repository DRUG MORPHINE OTHER: SEE C [place] 2 INGREDI/626436421( Clinic Other SNOMED CT) [place] Repository Animal/624665763(S CATS [facility] [address]) Clinic Other [place] Rep[place] NG/798771469(SNOME CATS [facility] D [facility]) [facility] Repository NG/992399324(SNOME MORPHINE [facility] D [facility]) Health System Repository ENCOUNTERS ENCOUNTERS ADMIT/DISCHARGE ACCOUNT NUMBER ADMITTING ENCOUNTER LOCATION SOURCE CLASS 11/03/2018/11/03/19 [id number] Ambulatory BMSBuilding: [facility] 19 BMS.[facility] Hospital Repository 11/01/2018 [id number] Ambulatory [facility] Hospital ding:SP Repository 10/31/2018 [id number] Ambulatory [facility] ding:NS Repository 10/25/2018/10/25/19 [id number] Ambulatory [address] ding:SDCRoom Repository : AC15 10/25/2018/10/25/19 [id number] Ambulatory BMSBuilding: [facility] 19 BMS.CF.[facility] Repository 10/17/2018/10/17/20 [id number] Ambulatory BMSBuilding: [facility] 18 BMS.[facility] Repository 10/14/2018/10/14/20 [id number] Ambulatory BMSBuilding: [facility] 18 BMS.[facility] Repository 10/05/2018/10/05/20 [id number] Ambulatory BMSBuilding: [facility] 18 BMS.[facility] Repository 10/04/2018 [id number] Ambulatory [facility] MEDICAL Repository CENTERBuildi ng:AGPSYACC 09/27/2018/09/27/20 [id number] Ambulatory [address] ding:SDCRoom Repository : AC03 09/27/2018 [id number] Ambulatory BMSBuilding: [facility] Repository 09/26/2018 [id number] Ambulatory BMSBuilding: [facility] BMS.CF.[facility] Repository 09/26/2018 [id number] Ambulatory BMSBuilding: [facility] Repository 09/26/2018 [id number] Ambulatory [facility] ding:CVS Repository 09/14/2018/09/14/20 [id number] Emergency [address] ding:ED Repository 09/12/2018 [id number] Ambulatory BMSBuilding: [facility] BMS.CF.[facility] Repository 09/12/2018 [id number] Ambulatory [facility] ding:OMD Repository 09/12/2018 [id number] Ambulatory [facility] ding:LAB Repository 09/12/2018/09/12/20 [id number] Ambulatory BMSBuilding: [facility] 18 BMS.[facility] Repository 08/28/2018 [id number] Ambulatory [facility] ding:WC Repository 08/26/2018/08/26/20 [id number] Ambulatory BMSBuilding: [facility] 18 BMS.[facility] Repository 08/17/2018/08/17/20 [id number] Ambulatory BMSBuilding: [facility] 18 BMS.[facility] Repository 08/16/2018 [id number] Ambulatory [facility] ding: Repository 08/16/2018/08/16/20 [id number] Ambulatory BMSBuilding: [facility] 18 BMS.[facility] Repository 08/11/2018/08/17/20 [id number] Ambulatory [address] ding: Repository 08/04/2018 [id number] Ambulatory BMSBuilding: [facility] Repository 08/04/2018 [id number] Ambulatory BMSBuilding: [facility] Repository 08/03/2018/08/03/20 [id number] Ambulatory BMSBuilding: [facility] 18 BMS.[facility] Repository 08/02/2018 [id number] Ambulatory BMSBuilding: [facility] BMS.CF.[facility] Repository 07/28/2018 [id number] Ambulatory BMSBuilding: [facility] Repository 07/27/2018 [id number] Ambulatory BMSBuilding: [facility] Repository 07/26/2018/07/26/20 [id number] Ambulatory [address] Repository 07/26/2018/07/26/20 [id number] Ambulatory [address] MEDICAL Repository CENTERBuildi ng:AGPSYACC 07/21/2018 [id number] Ambulatory BMSBuilding: [facility] Repository 07/20/2018/07/20/20 [id number] Ambulatory BMSBuilding: [facility] 18 BMS.[facility] Repository 07/20/2018 [id number] Ambulatory BMSBuilding: [facility] Repository 07/19/2018 [id number] Ambulatory BMSBuilding: [facility] Repository 07/15/2018/07/17/20 [id number] Ambulatory [facility] [address] ding:WC Repository 07/14/2018 [id number] Ambulatory BMSBuilding: [facility] BMS.CF.[facility] Repository 07/13/2018/07/13/20 [id number] Ambulatory BMSBuilding: [facility] 18 BMS.[facility] Repository 07/12/2018/07/12/20 [id number] Ambulatory [address] ding:SDCRoom Repository : AC18 07/11/2018/07/11/20 [id number] Ambulatory BMSBuilding: [facility] 18 BMS.[facility] Repository 07/11/2018 [id number] Ambulatory [facility] ding:OPUS Repository 07/07/2018 [id number] Ambulatory BMSBuilding: [facility] BMS.CF.[facility] Repository 07/04/2018 [id number] Ambulatory BMSBuilding: [facility] BMS.CF.[facility] Repository 07/04/2018 [id number] Ambulatory [facility] ding:OPBI Repository 06/30/2018 [id number] [facility] Repository 06/29/2018 [id number] Ambulatory BMSBuilding: [facility] BMS.CF.[facility] Repository 06/25/2018 [id number] [facility], Ambulatory BMSBuilding: [facility] [place] BMS.CF.[facility] Repository 06/25/2018 [id number] [facility], Ambulatory BMSBuilding: [facility] [place] BMS.[facility] Repository 06/25/2018/06/26/20 [id number] [facility], Ambulatory [facility] ding:NW3Izgy Repository : KU971Odc: 1 06/25/2018 [id number] Ambulatory BMSBuilding: [facility] BMS.[facility] Repository 06/24/2018 [id number] Ambulatory BMSBuilding: [facility] BMS.[facility] Repository 06/22/2018 [id number] Ambulatory BMSBuilding: [facility] BMS.CF.[facility] Repository 06/17/2018/06/17/20 [id number] Ambulatory [facility] [address] [place] [address] ding:WC Repository 06/16/2018/06/17/20 [id number] Ambulatory BMSBuilding: [facility] Repository 06/15/2018 [id number] Ambulatory BMSBuilding: [facility] BMS.CF.[facility] Repository 06/13/2018 [id number] Ambulatory BMSBuilding: [facility] BMS.CF.[facility] Repository 06/13/2018 [id number] Ambulatory BMSBuilding: [facility] BMS.CF.[facility] Repository 06/09/2018 [id number] Ambulatory BMSBuilding: [facility] BMS.CF.[facility] Repository 06/08/2018 [id number] Ambulatory [facility] ding:US Repository 06/06/2018 [id number] Ambulatory BMSBuilding: [facility] BMS.[facility] Repository 06/06/2018/06/17/20 [id number] Ambulatory [address] ding:NS Repository 06/06/2018 [id number] Ambulatory BMSBuilding: [facility] BMS.CF.[facility] Repository 06/06/2018 [id number] Ambulatory BMSBuilding: [facility] Repository 05/31/2018/05/31/20 [id number] Ambulatory BMSBuilding: [facility] 18 BMS.[facility] Repository 05/23/2018 [id number] Ambulatory BMSBuilding: [facility] BMS.CF.[facility] Repository 05/23/2018 [id number] Ambulatory BMSBuilding: [facility] BMS.CF.[facility] Repository 05/17/2018/05/17/[id number] ding:[facility] Repository 05/10/2018/05/17/20 [id number] Ambulatory [address] ding:NS Repository 05/02/2018/05/17/20 [id number] Ambulatory [address] ding: Repository 05/02/2018 [id number] Ambulatory BMSBuilding: [facility] BMS.CF.[facility] Repository 04/27/2018/04/27/20 [id number] Ambulatory [address] Repository 04/27/2018/04/27/20 [id number] Ambulatory [address] MEDICAL Repository CENTERBuildi ng:AGPSYACC 04/25/2018 [id number] Ambulatory BMSBuilding: [facility] BMS.CF.[facility] Repository 04/18/2018 [id number] Ambulatory BMSBuilding: [facility] BMS.CF.[facility] Hospital Repository 04/11/2018/04/16/20 [id number] Ambulatory [address] ding:NS Repository 04/05/2018 [id number] Ambulatory [facility] ding:OPBI Repository 04/04/2018/04/16/20 [id number] Ambulatory [address] ding:WC Repository 04/04/2018 [id number] Ambulatory BMSBuilding: [facility] BMS.CF.[facility] Repository 03/29/2018 [id number] Ambulatory BMSBuilding: [facility] Repository 03/29/2018 [id number] Ambulatory [facility] ding:CVS Repository 03/28/2018 [id number] Ambulatory BMSBuilding: [facility] BMS.CF.[facility] Repository 03/23/2018 [id number] Ambulatory [facility] MEDICAL Repository CENTERBuildi ng:AGPSYACC 03/23/2018 [id number] Ambulatory [facility] MEDICAL Repository CENTERBuildi ng:AGPSYACC 03/17/2018 [id number] Ambulatory BMSBuilding: [facility] BMS.CF.[facility] Repository 03/15/2018/03/17/20 [id number] Ambulatory [address] ding:WC Repository 03/15/2018 [id number] Ambulatory BMSBuilding: [place] BMS.CF.[facility] Repository 03/07/2018 [id number] Ambulatory BMSBuilding: [facility] BMS.CF.[facility] Repository 03/07/2018/03/07/20 [id number] Ambulatory [address] ding:EN Repository 03/01/2018/03/01/20 [id number] Ambulatory BMSBuilding: [facility] 18 BMS.[facility] Repository 02/28/2018 [id number] Ambulatory BMSBuilding: [facility] BMS.CF.[facility] Repository 02/28/2018 [id number] Ambulatory BMSBuilding: [facility] BMS.[facility] Repository 02/28/2018 [id number] Ambulatory BMSBuilding: [facility] BMS.CF.[facility] Repository 02/21/2018 [id number] Ambulatory [facility] ding:LABSPEC Repository 02/15/2018 [id number] Ambulatory BMSBuilding: [facility] BMS.CF.[facility] Repository 02/14/2018 [id number] Ambulatory [facility] ding:LABSPEC Repository 02/07/2018 [id number] Ambulatory BMSBuilding: [facility] BMS.CF.[facility] Repository 02/02/2018/02/03/20 [id number] Ambulatory [address] Repository 02/02/2018/02/03/20 [id number] Ambulatory [address] MEDICAL Repository CENTERBuildi ng:AGPSYACC 01/31/2018 [id number] Ambulatory [facility] ding:LABSPEC Repository 01/31/2018/02/01/20 [id number] Emergency [address] ding:ED Repository 01/31/2018/02/15/20 [id number] Ambulatory [address] ding:WC Repository 01/31/2018 [id number] Ambulatory BMSBuilding: [facility] BMS.CF.[facility] Repository 01/27/2018 [id number] Ambulatory [facility] ding:LABSPEC Repository 01/27/2018/01/28/20 [id number] Ambulatory BMSBuilding: [facility] 18 BMS.[facility] Hospital Repository 01/26/2018 [id number] Ambulatory BMSBuilding: [facility] BMS.[facility] Repository 01/24/2018 [id number] Ambulatory [facility] ding:LABSPEC Repository 01/24/2018 [id number] Ambulatory BMSBuilding: [facility] BMS.CF.[facility] Repository 01/13/2018 [id number] Jose Robertson Ambulatory BMSBuilding: [facility] BMS.CF.[facility] Repository 01/13/2018 [id number] Jose Robertson Ambulatory BMSBuilding: [facility] BMS.[facility] Repository 01/13/2018 [id number] Jose Robertson Ambulatory BMSBuilding: [facility] BMS.CF.[facility] Repository 01/13/2018 [id number] Jose Robertson Ambulatory BMSBuilding: [facility] BMS.CF.[facility] Repository 01/13/2018 [id number] Jose Robertson Ambulatory BMSBuilding: [facility] BMS.[facility] Repository 01/13/2018 [id number] Jose Robertson Ambulatory BMSBuilding: [facility] BMS.[facility] Repository 01/13/2018 [id number] Jose Robertson Ambulatory BMSBuilding: [facility] BMS.[facility] Repository 01/13/2018/01/18/20 [id number] Jose Robertson Inpatient [address] ding:ML2Yrvd Repository : AA524Pbv: 1 01/13/2018 [id number] Ambulatory BMSBuilding: [facility] BMS.[facility] Repository 01/10/2018 [id number] Ambulatory [facility] ding:EN Repository 01/10/2018/01/16/20 [id number] Ambulatory [address] ding:WC Repository 01/10/2018 [id number] Ambulatory BMSBuilding: [facility] BMS.CF.[facility] Repository 01/07/2018 [id number] Ambulatory [facility] ding:MS2OUT Repository 01/04/2018 [id number] Ambulatory [facility] ding:CT Repository 01/03/2018/01/07/20 [id number] Ambulatory BMSBuilding: [facility] Repository 01/03/2018 [id number] Jose Robertson Ambulatory BMSBuilding: [facility] BMS.CF.[facility] Repository 01/03/2018 [id number] Jose Robertson Ambulatory BMSBuilding: [facility] BMS.CF.[facility] Repository 01/03/2018/01/07/20 [id number] Jose Robertson Inpatient [address] ding:VR8Irmn Repository : XU680Kbh: 1 12/30/2017 [id number] Ambulatory BMSBuilding: [facility] BMS.[facility] Repository 12/27/2017 [id number] Ambulatory BMSBuilding: [facility] BMS.[facility] Repository 12/24/2017 [id number] Ambulatory [facility] ding:LABSPEC Repository 12/23/2017/12/24/19 [id number] Ambulatory BMSBuilding: [facility] 18 BMS.[facility] Repository 12/23/2017 [id number] Ambulatory BMSBuilding: [facility] Repository 12/23/2017 [id number] Ambulatory [facility] ding:CVS Repository 12/22/2017/12/23/19 [id number] Ambulatory BMSBuilding: [facility] 18 BMS.[facility] Repository 12/21/2017/12/22/19 [id number] Ambulatory [address] Repository 12/21/2017/12/22/19 [id number] Ambulatory [address] MEDICAL Repository CENTERBuildi ng:AGPSYACC 12/10/2017 [id number] Ambulatory [facility] ding:BI Repository 12/09/2017/12/09/19 [id number] Ambulatory BMSBuilding: [facility] 18 BMS.[facility] Repository 12/09/2017 [id number] Ambulatory BMSBuilding: [facility] Repository 12/06/2017 [id number] Ambulatory BMSBuilding: [facility] BMS.[facility] Repository 11/15/2017 [id number] Ambulatory BMSBuilding: [facility] BMS.[facility] Repository 11/11/2017 [id number] Ambulatory BMSBuilding: [facility] Repository 10/27/2017/10/27/19 [id number] Ambulatory BMSBuilding: [facility] 18 BMS.[facility] Repository PAYERS PAYERS ENCOUNTER GUARANTOR PAYER SUBSCRIBER SOURCE 11/03/2018 GAIL Ortega Primary LIANNA [facility] [id number] Insurance:ANTHEMPolicy MENNERDOB: Community BEVER [place]: [id number] [id number] Repository 24557Qii: (330) Date:9725-60-33Hd [phone] () [id number] [place] [address]UD: 11/03/2018 Secondary NOT GIVENUNK [facility] Insurance:SELF PAY [facility] Number: Effective Repository Date:2018-11-03 11/01/2018 GAIL Ortega Primary LIANNA [facility] [id number] Insurance:ANTHEMPolicy MENNERDOB: [facility] Number: [id number] [id number] Repository 343[address]Xxq: (330) Date:1526-69-13Qi [phone] () [id number], [place] [address]GD: 11/01/2018 Secondary NOT GIVENUNK [facility] Insurance:SELF PAY [facility] Number: Effective Repository Date:2018-08-09 10/31/2018 GAIL Ortega Primary LIANNA [facility] [id number] Insurance:ANTHEMPolicy MENNERDOB: [facility] Number: [id number] [id number] Repository [address]34[address]Xwd: (330) Date:8883-20-66Wu [phone] () [id number], [place] [address]PU: 10/31/2018 Secondary NOT GIVENUNK [facility] Insurance:SELF PAY [facility] Number: Effective Repository Date:2018-06-18 10/25/2018 GAIL Ortega Primary LIANNA [facility] [id number] Insurance:ANTHEMPolicy MENNERDOB: [facility] Number: [id number], [place] [id number] Repository 6[address]Ouv: (330) Date:3757-86-37Ab [phone] () [id number] [place] [address]AB: 10/25/2018 Secondary NOT GIVENUNK [facility] Insurance:SELF PAY [facility] Effective Repository Date:2018-10-19 10/25/2018 GAIL Ortega Primary LIANNA [facility] [id number] Insurance:ANTHEMPolicy MENNERDOB: Community BEVER Number: [id number], [place] [id number] Repository [address]Kii: (330) Date:1046-13-07Ma [phone] () [id number] [place] [address]NC: 10/25/2018 Secondary NOT GIVENUNK [facility] Insurance:SELF PAY [facility] Number: Effective Repository Date:2018-10-25 10/17/2018 GAIL Ortega Primary LIANNA [facility] [id number] N Insurance:ANTHEMPolicy MENNERDOB: Community BEVER Number: [id number], [place] [id number] Repository [address]Wrc: (330) Date:2261-08-78Eh [phone] () [id number], [place] [address]FQ: 10/17/2018 Secondary NOT GIVENUNK [facility] Insurance:SELF PAY [facility] Number: Effective Repository Date:2018-10-17 10/14/2018 GAIL Ortega Primary LIANNA [facility] [id number] N Insurance:ANTHEMPolicy MENNERDOB: Community BEVER Number: [id number], [place] [id number] Repository [address]Lhr: (330) Date:7923-22-32Ii [phone] () [id number] [place] [address]WK: 10/14/2018 Secondary NOT GIVENUNK [facility] Insurance:SELF PAY [facility] Number: Effective Repository Date:2018-10-14 10/05/2018 GAIL Ortega Primary LIANNA [facility] [id number] Insurance:ANTHEMPolicy MENNERDOB: Community BEVER Number: [id number], [place] [id number] Repository [address]Ydi: (330) Date:0646-67-08Vh [phone] () 988454Umffjfo, [place] [address]IB: 10/05/2018 Secondary NOT GIVENUNK Champion Insurance:SELF PAY [facility]: Effective Repository Date:2018-10-05 10/04/2018 GAIL Primary Insurance:BLUE LIANNA [place] [facility] PAJAKDOB: [facility]ESS [facility] MENNERD[facility] N Number: [id number] [facility] [id number] [place] Date: [address]Iua: () 09/27/2018 GAIL Ortega Primary LIANNA Rosa [id number] N Insurance:ANTHEMPolicy MENNERDOB: [facility] BEVER Number: [id number] [id number] Repository 68659Bow: (330) Date:4735-99-69Ef [phone] () 014416Oavmfgn, [place] [address]FF: 09/27/2018 Secondary NOT GIVENUNK Champion Insurance:SELF PAY [facility] Number: Effective Repository Date:2018-08-09 09/27/2018 GAIL Ortega Primary LIANNA Rosa [id number] N Insurance:ANTHEMPolicy MENNERDOB: Community BEVER Number: [id number], [place] [id number] Repository 10857Ioi: (330) Date:1459-95-24Ko [address] [phone] () 212302PltrsppMATHEW Montelongo [address]IM: 09/27/2018 Secondary NOT GIVENUNK Champion Insurance:SELF PAY [facility] Number: Effective Repository Date:2018-09-27 09/26/2018 GAIL Oretga Primary LIANNA Champion [id number] N Insurance:ANTHEMPolicy MENNERDOB: Community BEVER Number: [id number] [id number] Repository 87309Voj: (330) Date:6295-16-35Zv [phone] () MATHEW Willard [address]OG: 09/26/2018 Secondary NOT GIVENUNK Rosa Insurance:SELF PAY [facility] Number: Effective Repository Date:2018-09-26 09/26/2018 GAIL Ortega Primary LIANNA Champion [id number] N Insurance:ANTHEMPolicy MENNERDOB: [facility] BEVER Number: [id number], [place] [id number] Repository 80526Yhc: (330) Date:6211-74-55Af [phone] () 370304Nubuchz, [place] [address]QD: 09/26/2018 Secondary NOT GIVENUNK Rosa Insurance:SELF PAY [facility] Number: Effective Repository Date:2018-09-26 09/26/2018 GAIL Ortega Primary LIANNA Rosa [id number] N Insurance:ANTHEMPolicy MENNERDOB: [facility] BEVER Number: [id number], [place] [id number] Repository 08440Rop: (330) Date:8052-66-23Lb [phone] () 242904Etecids, [place] [address]OG: 09/26/2018 Secondary NOT GIVENUNK Champion Insurance:SELF PAY [facility] Number: Effective Repository Date:2018-04-25 09/14/2018 GAIL Ortega Primary LIANNA Champion [id number] N Insurance:ANTHEMPolicy MENNERDOB: Community BEVER Number: [id number], [place] [id number] Repository 71382Nbq: (330) Date:9138-64-88Uu [address] [phone] () 685791AdxblclMATHEW Montelongo [address]VF: 09/14/2018 Secondary NOT GIVENUNK Rosa Insurance:SELF PAY [facility] Number: Effective Repository Date:2018-09-14 09/12/2018 GAIL Ortega Primary LIANNA Champion [id number] N Insurance:ANTHEMPolicy MENNERDOB: Community BEVER Number: [id number], [place] [id number] Repository [address]Aas: (330) Date:1616-23-85Ha [phone] () [address] [place] [address]AO: 09/12/2018 Secondary NOT GIVENUNK Rosa Insurance:SELF PAY [facility] Number: Effective Repository Date:2018-09-12 09/12/2018 GAIL Ortega Primary LIANNA Rosa [id number] N Insurance:ANTHEMPolicy MENNERDOB: Community BEVER Number: [id number], [place] [id number] Repository 08703Cxd: (330) Date:0019-52-39Iz [phone] () [address] [place] [address] 95[address]KK: 09/12/2018 Secondary GAIL A Rosa Insurance:CHEMO PAJAKDOB: [facility] [id number] Hospital Number: Repository [id number] Date:2017-07-09 09/12/2018 Tertiary NOT GIVENUNK Champion Insurance:SELF PAY [facility] Number: Effective Repository Date:2017-07-09 09/12/2018 GAIL A Primary LIANNA Champion [id number] N Insurance:ANTHEMPolicy MENNERDOB: Community BEVER Number: [id number], [place] [id number] Repository 02740Yjp: (330) Date:3362-49-64Gn [address] [phone] () 6[address]Syeam[address] [place] [address] 75[address]ZA: 09/12/2018 Secondary GAIL A Rosa Insurance:CHEMO PAJAKDOB: [facility] [id number] Hospital Number: Repository [id number] Date:2018-09-12 09/12/2018 Tertiary NOT GIVENUNK Champion Insurance:SELF PAY [facility] Number: Effective Repository Date:2018-09-12 09/12/2018 GAIL Ortega Primary LIANNA Rosa [id number] N Insurance:ANTHEMPolicy MENNERDOB: Community BEVER Number: [id number], [place] [id number] Repository 89928Igv: (330) Date:7758-79-28Wq [phone] () [address] [place] [address] [place] [address]EZ: 09/12/2018 Secondary NOT GIVENUNK Rosa Insurance:SELF PAY [facility] Number: Effective Repository Date:2018-09-12 08/28/2018 GAIL Ortega Primary LIANNA Rosa [id number] N Insurance:ANTHEMPolicy MENNERDOB: Community BEVER Number: [id number], [place] [id number] Repository 95751Zgw: (330) Date:0892-55-78Rq [address] [phone] () 787936Iahgegx [place] [address]NK: 08/28/2018 Secondary NOT GIVENUNK Rosa Insurance:SELF PAY [facility] Number: Effective Repository Date:2018-08-18 08/26/2018 GAIL Ortega Primary LIANNA Rosa [id number] N Insurance:ANTHEMPolicy MENNERDOB: [facility] BEVER Number: [id number], [place] [id number] Repository 89548Ubn: (330) Date:5397-92-18Kg [address] [phone] () 534469Accfjpo [place] [address]EW: 08/26/2018 Secondary NOT GIVENUNK Rosa Insurance:SELF PAY [facility] Number: Effective Repository Date:2018-08-23 08/17/2018 GAIL Ortega Primary LIANNA Rosa [id number] N Insurance:ANTHEMPolicy MENNERDOB: Community BEVER Number: [id number], [place] [id number] Repository 23354Ebe: (330) Date:6614-24-15Ry Box [phone] () 341487BjipgqaMATHEW Montelongo [address]IH: 08/17/2018 Secondary NOT GIVENUNK Champion Insurance:SELF PAY Community [facility] Number: Effective Repository Date:2018-08-17 08/16/2018 GAIL Ortega Primary LIANNA Champion [id number] N Insurance:ANTHEMPolicy MENNERDOB: Community BEVER Number: [id number], [place] [id number] Repository 38907Hbm: (330) Date:9097-91-21Yi [address] [phone] () 300915Zygjjit, [place] [address]RP: 08/16/2018 Secondary NOT GIVENUNK Champion Insurance:SELF PAY [facility] Number: Effective Repository Date:2018-08-16 08/16/2018 GAIL Ortega Primary LIANNA Champion [id number] N Insurance:ANTHEMPolicy MENNERDOB: Community BEVER Number: [id number], [place] [id number] Repository 63581Qqd: (330) Date:2445-81-35Nz [address] [phone] () 235208Impumnh, [place] [address]MN: 08/16/2018 Secondary NOT GIVENUNK Champion Insurance:SELF PAY [facility] Number: Effective Repository Date:2018-08-16 08/11/2018 GAIL Ortega Primary LIANNA Rosa [id number] N Insurance:ANTHEMPolicy MENNERDOB: Community BEVER Number: [id number], [place] [id number] Repository 98515Lbn: (330) Date:6102-40-22Zd [address] [phone] () MATHEW Willard [address]MD: 08/11/2018 Secondary NOT GIVENUNK Rosa Insurance:SELF PAY [facility] Number: Effective Repository Date:2018-07-18 08/04/2018 GAIL Ortega Primary LIANNA Rosa [id number] N Insurance:ANTHEMPolicy MENNERDOB: Community BEVER Number: [id number], [place] [id number] Repository 77649Tzj: (330) Date:2537-79-10Ao [address] [phone] () 581739Xiksyks, [place] [address]IL: 08/04/2018 Secondary NOT GIVENUNK Rosa Insurance:SELF PAY [facility] Number: Effective Repository Date:2018-08-04 08/04/2018 GAIL Ortega Primary LIANNA Champion [id number] N Insurance:ANTHEMPolicy MENNERDOB: [facility] BEVER Number: [id number], [place] [id number] Repository 67869Svb: (330) Date:2138-73-75Am [address] [phone] () 211776Nootspu, [place] [address]AK: 08/04/2018 Secondary NOT GIVENUNK Rosa Insurance:SELF PAY [facility] Number: Effective Repository Date:2018-08-04 08/03/2018 GAIL A Primary LIANNA Champion [id number] N Insurance:ANTHEMPolicy MENNERDOB: [facility] BEVER Number: [id number], [place] [id number] Repository 34312Scr: (607) Date:5178-79-52Hl Box [phone] () 748744Xwfngwt, [place] [address]ZG: 08/03/2018 Secondary NOT GIVENUNK Champion Insurance:SELF PAY [facility] Number: Effective Repository Date:2018-07-29 08/02/2018 GAIL A Primary Insurance:SELF NOT GIVENUNK Champion [id number] N PAY [facility] Number: Effective [place] Date:2018-08-02 Repository 78192Hgp: () 07/28/2018 GAIL A Primary LIANNA Champion [id number] N Insurance:ANTHEMPolicy MENNERDOB: [facility] BEVER Number: [id number], [place] [id number] Repository 46627Avq: (330) Date:1310-79-70Px Box [phone] () 890954Quoxmwl, [place] [address]ON: 07/28/2018 Secondary NOT GIVENUNK Rosa Insurance:SELF PAY [facility] Number: Effective Repository Date:2018-07-28 07/27/2018 GAIL Ortega Primary LIANNA Champion [id number] N Insurance:ANTHEMPolicy MENNERDOB: Community BEVER Number: [id number], [place] [id number] Repository 85804Lij: (330) Date:7676-06-37Tq [address] [phone] () [address] [place] [address] [place] [address]OT: 07/27/2018 Secondary NOT GIVENUNK Champion Insurance:SELF PAY [facility] Number: Effective Repository Date:2018-07-27 07/26/2018 GAIL Primary Insurance:BLUE LIANNA [place] [facility] PAJAKDOB: ACCESS PPOPolicy [facility] N Number: [id number] Repository [facility] [id number] [place] Date: [address]Hne: () 07/21/2018 GAIL Ortega Primary LIANNA Champion [id number] N Insurance:ANTHEMPolicy MENNERDOB: [facility] BEVER Number: [id number], [place] [id number] Repository 00942Mop: (330) Date:0250-73-54Lz [address] [phone] () 329486Vbngdfs, [place] [address]PZ: 07/21/2018 Secondary NOT GIVENUNK Champion Insurance:SELF PAY [facility] Number: Effective Repository Date:2018-07-21 07/20/2018 GAIL Ortega Primary LIANNA Champion [id number] N Insurance:ANTHEMPolicy MENNERDOB: [facility] BEVER Number: [id number], [place] [id number] Repository 57040Qzx: (330) Date:5819-17-14Zk Box [phone] () 719630Izgogux, [place] [address]DW: 07/20/2018 Secondary NOT GIVENUNK Rosa Insurance:SELF PAY [facility] Number: Effective Repository Date:2018-07-20 07/20/2018 GAIL Ortega Primary LIANNA Rosa [id number] N Insurance:ANTHEMPolicy MENNERDOB: Community BEVER Number: [id number], [place] [id number] Repository 87171Ixw: (330) Date:8539-91-29Fg [address] [phone] () 525112Zpptysd, [place] [address]QY: 07/20/2018 Secondary NOT GIVENUNK Champion Insurance:SELF PAY [facility] Number: Effective Repository Date:2018-07-20 07/19/2018 GAIL Ortega Primary LIANNA Rosa [id number] N Insurance:ANTHEMPolicy MENNERDOB: Community BEVER Number: [id number], [place] [id number] Repository 97285Zsk: (330) Date:6486-97-92Bc Box [phone] () 514451Zklqqxa, [place] [address]YH: 07/19/2018 Secondary NOT GIVENUNK Champion Insurance:SELF PAY [facility] Number: Effective Repository Date:2018-07-19 07/15/2018 GAIL Ortega Primary LIANNA Champion [id number] N Insurance:ANTHEMPolicy MENNERDOB: Community BEVER Number: [id number], [place] [id number] Repository 10547Sdv: (330) Date:7684-74-21Jr Box [phone] () 571517Ldumxtr, [place] [address]ZI: 07/15/2018 Secondary GAIL Ortega Champion Insurance:CHEMO PAJAKDOB: [facility] [id number] Hospital Number: 0Effective Repository Date:2018-01-10 07/15/2018 Tertiary NOT GIVENUNK Champion Insurance:SELF PAY [facility] Number: Effective Repository Date:2018-06-18 07/14/2018 GAIL Ortega Primary LIANNA Rosa [id number] N Insurance:ANTHEMPolicy MENNERDOB: Community BEVER Number: [id number], [place] [id number] Repository 44840Pee: (330) Date:2715-46-73Cq [address] [phone] () [address] [place] [address]YF: 07/14/2018 Secondary GAIL Ortega Rosa Insurance:CHEMO PAJAKDOB: [facility] [id number] Hospital Number: 0Effective Repository Date:2018-01-10 07/14/2018 Tertiary NOT GIVENUNK Champion Insurance:SELF PAY [facility] Number: Effective Repository Date:2018-07-14 07/13/2018 GAIL Ortega Primary LIANNA Champion [id number] N Insurance:ANTHEMPolicy MENNERDOB: Community BEVER Number: [id number], [place] [id number] Repository 77336Gjm: (330) Date:8355-11-88Ej Box [phone] () 477901Btwrtzd [place] [address]AT: 07/13/2018 Secondary NOT GIVENUNK Rosa Insurance:SELF PAY [facility] Number: Effective Repository Date:2018-07-13 07/12/2018 GAIL Ortega Primary LIANNA Champion [id number] N Insurance:ANTHEMPolicy MENNERDOB: Community BEVER Number: [id number], [place] [id number] Repository 59463Fyb: (330) Date:2682-99-03Vj Box [phone] () 272117Pgotgvd, [place] [address]BL: 07/12/2018 Secondary NOT GIVENUNK Champion Insurance:SELF PAY [facility] Number: Effective Repository Date:2018-07-08 07/11/2018 GAIL A Primary LIANNA Rosa [id number] N Insurance:ANTHEMPolicy MENNERDOB: Community BEVER Number: [id number], [place] [id number] Repository 63201Ory: (330) Date:2667-60-78Id Box [phone] () 885435Wkneqvz, [place] [address]ZV: 07/11/2018 Secondary NOT GIVENUNK Champion Insurance:SELF PAY [facility] Number: Effective Repository Date:2018-07-11 07/11/2018 GAIL A Primary LIANNA Rosa [id number] N Insurance:ANTHEMPolicy MENNERDOB: [facility] BEVER Number: [id number], [place] [id number] Repository 48391Zce: (330) Date:3293-38-33Wf Box [phone] () 780279Mfebedw, [place] [address]FE: 07/11/2018 Secondary NOT GIVENUNK Rosa Insurance:SELF PAY [facility]: Effective Repository Date:2018-06-29 07/07/2018 GAIL A Primary LIANNA Rosa [id number] N Insurance:ANTHEMPolicy MENNERDOB: [facility] BEVER Number: [id number], [place] [id number] Repository 93270Shz: (330) Date:4805-47-02Hn Box [phone] () 620660Slyxbaf, [place] [address]HR: 07/07/2018 Secondary GAIL A Rosa Insurance:CHEMO PAJAKDOB: [facility] [id number] Hospital Number: 0Effective Repository Date:2018-01-10 07/07/2018 Tertiary NOT GIVENUNK Champion Insurance:SELF PAY [facility] Number: Effective Repository Date:2018-07-07 07/04/2018 GAIL A Primary LIANNA Champion [id number] N Insurance:ANTHEMPolicy MENNERDOB: [facility] BEVER Number: [id number], [place] [id number] Repository 53502Ddu: (330) Date:9585-34-89Mi Box [phone] () 936004PakewdaMATHEW Montelongo [address]CQ: 07/04/2018 Secondary NOT GIVENUNK Rosa Insurance:SELF PAY [facility] Number: Effective Repository Date:2018-07-04 07/04/2018 GAIL A Primary LIANNA Rosa [id number] N Insurance:ANTHEMPolicy MENNERDOB: Community BEVER Number: [id number], [place] [id number] Repository 96976Okz: (330) Date:3563-75-32Xx Box [phone] () 668257UsvsfdzMATHEW Montelongo [address]QT: 07/04/2018 Secondary NOT GIVENUNK Rosa Insurance:SELF PAY [facility] Number: Effective Repository Date:2018-06-13 06/30/2018 GAIL A Primary LIANNA Rosa [id number] N Insurance:ANTHEMPolicy MENNERDOB: Community BEVER Number: [id number], [place] [id number] Repository 26931Rop: (330) Date:6949-06-29Yo Box [phone] () MATHEW Willard [address]TC: 06/30/2018 Secondary GAIL A Champion Insurance:CHEMO PAJAKDOB: [facility] [id number] Hospital Number: 0Effective Repository Date:2018-01-10 06/30/2018 Tertiary NOT GIVENUNK Champion Insurance:SELF PAY [facility] Number: Effective Repository Date:2018-06-30 06/29/2018 GAIL A Primary LIANNA Rosa [id number] N Insurance:ANTHEMPolicy MENNERDOB: Community BEVER Number: [id number], [place] [id number] Repository 03073Ozg: (330) Date:1585-75-47Zf Box [phone] () 872570Pmonlsc, [place] [address]LD: 06/29/2018 Secondary GAIL A Rosa Insurance:CHEMO PAJAKDOB: [facility] [id number] Hospital Number: 0Effective Repository Date:2018-01-10 06/29/2018 Tertiary NOT GIVENUNK Champion Insurance:SELF PAY [facility] Number: Effective Repository Date:2018-06-29 06/25/2018 GAIL A Primary LIANNA Champion [id number] N Insurance:ANTHEMPolicy MENNERDOB: Community [facility] Number: [id number], [place] [id number] Repository 08505Fvj: (330) Date:9970-00-54Wh Box [phone] () 849629Sxxoaqe, [place] [address]ZV: 06/25/2018 Secondary GAIL A Champion Insurance:CHEMO PAJAKDOB: [facility] [id number] Hospital Number: Repository [id number] Date:2018-06-09 06/25/2018 Tertiary NOT GIVENUNK Rosa Insurance:SELF PAY [facility] Number: Effective Repository Date:2018-06-24 06/25/2018 GAIL A Primary LIANNA Champion [id number] N Insurance:ANTHEMPolicy MENNERDOB: [facility] BEVER Number: [id number], [place] [id number] Repository 33916Zlb: (330) Date:0169-79-96Lh Box [phone] () MATHEW Willard [address]VQ: 06/25/2018 Secondary NOT GIVENUNK Rosa Insurance:SELF PAY [facility] Number: Effective Repository Date:2018-06-25 06/25/2018 GAIL A Primary LIANNA Rosa [id number] N Insurance:ANTHEMPolicy MENNERDOB: [facility] Number: [id number], [place] [id number] Repository 88259Cgr: (330) Date:9795-40-56Vc Box [phone] () 095389JyofqdzMATHEW Montelongo [address]TS: 06/25/2018 Secondary GAIL A Champion Insurance:CHEMO PAJAKDOB: [facility] [id number] Hospital Number: Repository [id number] Date:2018-06-09 06/25/2018 Tertiary NOT GIVENUNK Rosa Insurance:SELF PAY [facility] Number: Effective Repository Date:2018-06-09 06/25/2018 GAIL A Primary LIANNA Rosa [id number] N Insurance:ANTHEMPolicy MENNERDOB: Community BEVER Number: [id number], [place] [id number] Repository 95006Ylm: (330) Date:0682-44-05Et Box [phone] () 754471Owqaapn, [place] [address]WE: 06/25/2018 Secondary NOT GIVENUNK Rosa Insurance:SELF PAY [facility] Number: Effective Repository Date:2018-06-25 06/24/2018 GAIL A Primary LIANNA Champion [id number] N Insurance:ANTHEMPolicy MENNERDOB: [facility] BEVER Number: [id number], [place] [id number] Repository 34957Srv: (330) Date:2297-58-07Ls Box [phone] () 870790Ponzhsy, [place] [address]EW: 06/24/2018 Secondary GAIL A Rosa Insurance:CHEMO PAJAKDOB: [facility] [id number] Hospital Number: 0Effective Repository Date:2018-06-09 06/24/2018 Tertiary NOT GIVENUNK Rosa Insurance:SELF PAY [facility] Number: Effective Repository Date:2018-06-24 06/22/2018 GAIL A Primary LIANNA Rosa [id number] N Insurance:ANTHEMPolicy MENNERDOB: Community BEVER Number: [id number], [place] [id number] Repository 54142Vju: (330) Date:1240-79-20Vm Box [phone] () 591901Sbiqorg, [place] [address]MC: 06/22/2018 Secondary GAIL A Champion Insurance:CHEMO PAJAKDOB: [facility] [id number] Hospital Number: 0Effective Repository Date:2018-01-10 06/22/2018 Tertiary NOT GIVENUNK Rosa Insurance:SELF PAY Community [facility] Number: Effective Repository Date:2018-06-22 06/17/2018 GAIL A Primary LIANNA Rosa [id number] N Insurance:ANTHEMPolicy MENNERDOB: Community BEVER Number: [id number], [place] [id number] Repository 80099Ave: (330) Date:4624-56-61Zl Box [phone] () 524188Tbrfyak [place] [address]YA: 06/17/2018 Secondary GAIL A Champion Insurance:CHEMO PAJAKDOB: [facility] [id number] Hospital Number: 0Effective Repository Date:2018-01-10 06/17/2018 Tertiary NOT GIVENUNK Champion Insurance:SELF PAY [facility] Number: Effective Repository Date:2018-05-18 06/16/2018 GAIL A Primary LIANNA Champion [id number] N Insurance:ANTHEMPolicy MENNERDOB: [facility] BEVER Number: [id number], [place] [id number] Repository 03014Uid: (330) Date:9912-32-13Tr [address] [phone] () 011620Xfwrchx, [place] [address]IC: 06/16/2018 Secondary GAIL A Rosa Insurance:CHEMO PAJAKDOB: [facility] ASSISTANCEPolicy [id number] Hospital Number: 0Effective Repository Date:2018-01-10 06/16/2018 Tertiary NOT GIVENUNK Rosa Insurance:SELF PAY [facility] Number: Effective Repository Date:2018-06-16 06/15/2018 GAIL A Primary LIANNA Champion [id number] N Insurance:ANTHEMPolicy MENNERDOB: [facility] BEVER Number: [id number], [place] [id number] Repository 52010Ftj: (330) Date:7435-04-47Az Box [phone] () [address] [place] [address]GK: 06/15/2018 Secondary GAIL A Champion Insurance:CHEMO PAJAKDOB: [facility] [id number] Hospital Number: 0Effective Repository Date:2018-01-10 06/15/2018 Tertiary NOT GIVENUNK Rosa Insurance:SELF PAY [facility] Number: Effective Repository Date:2018-06-15 06/13/2018 GAIL A Primary LIANNA Rosa [id number] N Insurance:ANTHEMPolicy MENNERDOB: [facility] Number: [id number], [place] [id number] Repository 92021Rmb: (330) Date:9986-86-87Gt [address] [phone] () [address]Wgqom[address] [place] [address]YX: 06/13/2018 Secondary GAIL A Rosa Insurance:CHEMO PAJAKDOB: [facility] [id number] Hospital Number: 0Effective Repository Date:2017-07-09 06/13/2018 Tertiary NOT GIVENUNK Rosa Insurance:SELF PAY [facility] Number: Effective Repository Date:2018-06-13 06/13/2018 GAIL A Primary LIANNA Orsa [id number] N Insurance:ANTHEMPolicy MENNERDOB: [facility] Number: [id number], [place] [id number] Repository 12852Azv: (330) Date:8211-07-37Xu Box [phone] () [id number] [place] [address] 37424QE: 06/13/2018 Secondary GAIL A Rosa Insurance:CHEMO PAJAKDOB: [facility] [id number] Hospital Number: 0Effective Repository Date:2018-06-09 06/13/2018 Tertiary NOT GIVENUNK Rosa Insurance:SELF [facility] [facility] Number: Effective Repository Date:2018-06-13 06/09/2018 GAIL A Primary LIANNA Rosa [id number] N Insurance:ANTHEMPolicy MENNERDOB: Community BEVER [place]: [id number] [id number] Repository 31902Aal: (330) Date:7962-83-68Bu [phone] () 511921Berqvaj, [place] [address]KO: 06/09/2018 Secondary GAIL A Rosa Insurance:CHEMO PAJAKDOB: [facility] [id number] Hospital Number: 0Effective Repository Date:2018-01-10 06/09/2018 Tertiary NOT GIVENUNK Champion Insurance:SELF PAY [facility] Number: Effective Repository Date:2018-06-09 06/08/2018 GAIL A Primary LIANNA Champion [id number] N Insurance:ANTHEMPolicy MENNERDOB: Community BEVER Number: [id number], [place] [id number] Repository 55867Jem: (330) Date:5490-30-81Je [phone] () [address] [place] [address] [place] [address]OW: 06/08/2018 Secondary GAIL A Rosa Insurance:CHEMO PAJAKDOB: [facility] [id number] Hospital Number: 0Effective Repository Date:2018-05-31 06/08/2018 Tertiary NOT GIVENUNK Rosa Insurance:SELF PA[place] [facility] Number: Effective Repository Date:2018-05-31 06/06/2018 GAIL A Primary LIANNA Rosa [id number] N Insurance:ANTHEMPolicy MENNERDOB: [facility] Number: [id number], [place] [id number] Repository 47749Eyu: (330) Date:5249-89-74My [phone] () 466028Hgfytfn, [place] [address]QT: 06/06/2018 Secondary GAIL A Champion Insurance:CHEMO PAJAKDOB: [facility] [id number] Hospital Number: 0Effective Repository Date:2018-04-15 06/06/2018 Tertiary NOT GIVENUNK Rosa Insurance:SELF PAY Community [facility] Number: Effective Repository Date:2018-05-05 06/06/2018 GAIL A Primary LIANNA Champion [id number] N Insurance:ANTHEMPolicy MENNERDOB: Community BEVER Number: [id number], [place] [id number] Repository 15584Tcs: (330) Date:6592-66-68Ky [phone] () 678614Uwgztof [place] [address]AX: 06/06/2018 Secondary GAIL A Champion Insurance:CHEMO PAJAKDOB: [facility] [id number] Hospital Number: 0Effective Repository Date:2018 06/06/2018 Tertiary NOT GIVENUNK Rosa Insurance:SELF PAY [facility] Number: Effective Repository Date:2018-05-18 06/06/2018 GAIL A Primary LIANNA Champion [id number] N Insurance:ANTHEMPolicy MENNERDOB: Community BEVER Number: [id number], [place] [id number] Repository 25025Ncl: (330) Date:4526-34-52Iz [phone] () 313622Wqfofpf [place] [address]ZK: 06/06/2018 Secondary NOT GIVENUNK Rosa Insurance:SELF PAY Community [facility] Number: Effective Repository Date:2018-06-06 06/06/2018 GAIL A Primary LIANNA Champion [id number] N Insurance:ANTHEMPolicy MENNERDOB: Community BEVER Number: [id number], [place] [id number] Repository 32032Pgk: (330) Date:1763-07-95Xh [phone] () 603985Cbekojz, [place] [address]FD: 06/06/2018 Secondary GAIL A Champion Insurance:CHEMO PAJAKDOB: [facility] [id number] Hospital Number: 0Effective Repository Date:2018-01-10 06/06/2018 Tertiary NOT GIVENUNK Champion Insurance:SELF PAY Community [facility] Number: Effective Repository Date:2018-06-06 05/31/2018 GAIL Ortega Primary LIANNA Champion [id number] N Insurance:ANTHEMPolicy MENNERDOB: Community BEVER Number: [id number], [place] [id number] Repository 07258Wap: (330) Date:2112-90-38Qy [phone] () [address] [place] [address] [place] 51095AN: 05/31/2018 Secondary GAIL Ortega Champion Insurance:CHEMO PAJAKDOB: [facility] [id number] Hospital Number: 0Effective Repository Date:2018-05-17 05/31/2018 Tertiary NOT GIVENUNK Rosa Insurance:SELF PAY [facility] Hospital Number: Effective Repository Date:2018-05-31 05/23/2018 GAIL Ortega Primary LIANNA Champion [id number] N Insurance:ANTHEMPolicy MENNERDOB: Community BEVER Number: [id number], [place] [id number] Repository 20448Zij: (330) Date:5472-79-19Is [address] [phone] () [address] [place] [address] [place] 613[address]ME: 05/23/2018 Secondary NOT GIVENUNK Rosa Insurance:SELF PAY Community [facility] Number: Effective Repository Date:2018-05-23 05/23/2018 GAIL Ortega Primary LIANNA Champion [id number] N Insurance:ANTHEMPolicy MENNERDOB: Community BEVER Number: [id number], [place] [id number] Repository 75374Scp: (330) Date:5221-25-19Kv [address] [phone] () 904458Blyhxbx, [place] [address]EQ: 05/23/2018 Secondary NOT GIVENUNK Rosa Insurance:SELF PAY [facility] Hospital Number: Effective Repository Date:2018-05-23 05/17/2018 GAIL Ortega Primary LIANNA R [facility] PAJAKDOB: Insurance:ANTHEM BLUE MENNERDOB: [facility] N [facility] [id number] Repository BEVER Number: [place] [id number] [place] [address]~2@O Date:2018-05-17 75424Emf: (279) JEFFERS.EDUTel: [id number] [phone] ( Name:HENOK HILTON (HP)Tel: (000) (HP)Tel: ([phone] 829749Ntybqgk, [place] [phone] () [phone] () 83737GR: 05/10/2018 GAIL Ortega Primary LIANNA Champion [id number] N Insurance:ANTHEMPolicy MENNERDOB: [facility] BEVER Number: [id number] [place], [place] [id number] Repository 91304Dbf: (330) Date:1671-93-24Wo [phone] () [address] [place] [address] 70912IU: 05/10/2018 Secondary GAIL A Champion Insurance:CHEMO PAJAKDOB: [facility] [id number] Hospital Number: 0Effective Repository Date:2018 05/10/2018 Tertiary NOT GIVENUNK Rosa Insurance:SELF PAY [facility] Hospital Number: Effective Repository Date:2018-04-17 05/02/2018 GAIL A Primary LIANNA Rosa [id number] N Insurance:ANTHEMPolicy MENNERDOB: [facility] BEVER Number: [id number], [place] [id number] Repository 23346Mcl: (330) Date:8198-43-42Sv [address] [phone] () [address] [place] [address] 48232KW: 05/02/2018 Secondary GAIL A Champion Insurance:CHEMO PAJAKDOB: [facility] [id number] Hospital Number: 0Effective Repository Date:2018-01-10 05/02/2018 Tertiary NOT GIVENUNK Champion Insurance:SELF PAY Community [facility] Number: Effective Repository Date:2018-04-17 05/02/2018 GAIL Ortega Primary LIANNA Champion [id number] N Insurance:ANTHEMPolicy MENNERDOB: Community BEVER Number: [id number], [place] [id number] Repository 08586Ckm: (330) Date:6141-51-99Xl [address] [phone] () [address] [place] [address] 00381EO: 05/02/2018 Secondary GAIL A Champion Insurance:CHEMO PAJAKDOB: [facility] [id number] Hospital Number: 0Effective Repository Date:2018-01-10 05/02/2018 Tertiary NOT GIVENUNK Champion Insurance:SELF PAY [facility] Number: Effective Repository Date:2018-05-02 04/27/2018 GAIL Primary Insurance:BLUE LIANNA R [facility] PAJAKDOB: [facility] N Number: [id number] Repository [facility] [id number] [place] Date: [address]93[address]Lks: () 04/25/2018 GAIL Ortega Primary LIANNA Rosa [id number] N Insurance:ANTHEMPolicy MENNERDOB: Community BEVER Number: [id number], [place] [id number] Repository 35565Ble: (330) Date:4404-02-06Jf [address] [phone] () 597886LlkwvblNORTHVILLE, [place] [address]ND: 04/25/2018 Secondary NOT GIVENUNK Rosa Insurance:SELF PAY [facility] Number: Effective Repository Date:2018-04-25 04/18/2018 GAIL A Primary LIANNA Rosa [id number] N Insurance:ANTHEMPolicy MENNERDOB: Community BEVER Number: [id number], [place] [id number] Repository 20397Mca: (330) Date:5034-97-24Jr [address] [phone] () [address] [place] [address] 04105BL: 04/18/2018 Secondary GAIL A Rosa Insurance:CHEMO PAJAKDOB: [facility] [id number] Hospital Number: 0Effective Repository Date:2018-01-10 04/18/2018 Tertiary NOT GIVENUNK Rosa Insurance:SELF PAY [facility] Hospital Number: Effective Repository Date:2018-04-18 04/11/2018 GAIL A Primary LIANNA Rosa [id number] N Insurance:ANTHEMPolicy MENNERDOB: Community BEVER Number: [id number], [place] [id number] Repository 60319Bmk: (330) Date:3115-02-63Pg [address] [phone] () 629461Ullecoa[address] [place] [address] 47473LE: 04/11/2018 Secondary GAIL A Rosa Insurance:CHEMO PAJAKDOB: [facility] [id number] Hospital Number: 0Effective Repository Date:2018 04/11/2018 Tertiary NOT GIVENUNK Champion Insurance:SELF PAY [facility] Number: Effective Repository Date:2018 04/05/2018 GAIL A Primary LIANNA Champion [id number] N Insurance:ANTHEMPolicy MENNERDOB: Community BEVER Number: [id number], [place] [id number] Repository 83011Gwa: (330) Date:8029-12-68Ot [address] [phone] () [address] [place] [address] 53184WW: 04/05/2018 Secondary NOT GIVENUNK Rosa Insurance:SELF [facility] [facility] Number: Effective Repository Date:2018-03-17 04/04/2018 GAIL A Primary LIANNA Champion [id number] N Insurance:ANTHEMPolicy MENNERDOB: Community BEVER Number: [id number], [place] [id number] Repository 41870Yij: (330) Date:3060-53-91Dg [address] [phone] () [address] [place] [address] 74894BP: 04/04/2018 Secondary GAIL A Champion Insurance:CHEMO PAJAKDOB: [facility] [id number] Hospital Number: 0Effective Repository Date:2018-01-10 04/04/2018 Tertiary NOT GIVENUNK Champion Insurance:SELF PAY [facility] Hospital Number: Effective Repository Date:2018-03-18 04/04/2018 GAIL A Primary LIANNA Rosa [id number] N Insurance:ANTHEMPolicy MENNERDOB: [facility] BEVER Number: [id number], [place] [id number] Repository 37617Hwf: (330) Date:4463-98-60Kd [address] [phone] () 918913Ldcoryr[address] [place] [address] 47892UQ: 04/04/2018 Secondary GAIL A Rosa Insurance:CHEMO PAJAKDOB: [facility] [id number] Hospital Number: 0Effective Repository Date:2018-01-10 04/04/2018 Tertiary NOT GIVENUNK Rosa Insurance:SELF PAY [facility] Hospital Number: Effective Repository Date:2018-04-04 03/29/2018 GAIL A Primary LIANNA Rosa [id number] N Insurance:ANTHEMPolicy MENNERDOB: [facility] BEVER Number: [id number], [place] [id number] Repository 46864Cvx: (330) Date:3476-74-03Md [address] [phone] () [address] [place] [address] 50343CE: 03/29/2018 Secondary GAIL A Rosa Insurance:CHEMO PAJAKDOB: [facility] [id number] Hospital Number: 0Effective Repository Date:2018-02-28 03/29/2018 Tertiary NOT GIVENUNK Champion Insurance:SELF PAY [facility] Hospital Number: Effective Repository Date:2018-03-29 03/29/2018 GAIL A Primary LIANNA Champion [id number] N Insurance:ANTHEMPolicy MENNERDOB: Community BEVER Number: [id number], [place] [id number] Repository 56323Fwe: (330) Date:1443-93-67Ri [address] [phone] () [address] [place] [address] 44531CW: 03/29/2018 Secondary GAIL A Rosa Insurance:CHEMO PAJAKDOB: [facility] [id number] Hospital Number: 0Effective Repository Date:2018-02-28 03/29/2018 Tertiary NOT GIVENUNK Rosa Insurance:SELF PAY [facility] Number: Effective Repository Date:2018-02-28 03/28/2018 GAIL A Primary LIANNA Rosa [id number] N Insurance:ANTHEMPolicy MENNERDOB: [facility] Number: [id number], [place] [id number] Repository 25521Xtr: (330) Date:3382-76-01Ab Box [phone] () [id number] [place] [address] 00253NC: 03/28/2018 Secondary NOT GIVENUNK Champion Insurance:SELF PAY [facility] Number: Effective Repository Date:2018-03-28 03/23/2018 GAIL Primary Insurance:BLUE LIANNA R [facility] PAJAKDOB: ACCESS PPO BHPolicy MENNERDOB: Health System N Number: [id number] Repository [facility] [id number] [place], [place] Date: [address]Rih: () 03/23/2018 GAIL Primary Insurance:BLUE LIANNA R [facility] PAJAKDOB: ACCESS PPO BHPolicy MENNERDOB: Health System N Number: [id number] Repository [facility] [id number] [place] Date: [address]Bdz: () 03/17/2018 GAIL A Primary LIANNA Rosa [id number] N Insurance:ANTHEMPolicy MENNERDOB: [facility] BEVER Number: [id number], [place] [id number] Repository 77524Ung: (330) Date:2038-47-14Kh [address] [phone] () 328262Xlabvtv, [place] [address]NG: 03/17/2018 Secondary GAIL Ortega Rosa Insurance:CHEMO PAJAKDOB: [facility] [id number] Hospital Number: 0Effective Repository Date:2017-07-09 03/17/2018 Tertiary NOT GIVENUNK Champion Insurance:SELF PAY [facility] Number: Effective Repository Date:2018-03-17 03/15/2018 GAIL Ortega Primary LIANNA Champion [id number] N Insurance:ANTHEMPolicy MENNERDOB: Community BEVER Number: [id number], [place] [id number] Repository 33246Rkc: (330) Date:6016-70-80Sk [address] [phone] () 580051Liqykbr, [place] [address]YY: 03/15/2018 Secondary NOT GIVENUNK Rosa Insurance:SELF PAY [facility] Number: Effective Repository Date:2018-02-15 03/15/2018 GAIL Ortega Primary LIANNA Rosa [id number] N Insurance:ANTHEMPolicy MENNERDOB: Community BEVER Number: [id number], [place] [id number] Repository 40518Dfu: (330) Date:5734-79-69Ob [address] [phone] () 150785Plzfovo, [place] [address]MX: 03/15/2018 Secondary NOT GIVENUNK Champion Insurance:SELF PAY [facility] Number: Effective Repository Date:2018-03-15 03/07/2018 GAIL Ortega Primary LIANNA Rosa [id number] N Insurance:ANTHEMPolicy MENNERDOB: Community BEVER Number: [id number], [place] [id number] Repository 96673Cog: (330) Date:8445-32-96Nt Box [phone] () 480251Ohgflrc, [place] [address]VV: 03/07/2018 Secondary NOT GIVENUNK Champion Insurance:SELF PAY [facility] Hospital Number: Effective Repository Date:2018-03-07 03/07/2018 GAIL Ortega Primary LIANNA Rosa [id number] N Insurance:ANTHEMPolicy MENNERDOB: Community BEVER Number: [id number], [place] [id number] Repository 20724Hrb: (330) Date:3840-16-08Kn [address] [phone] () 610276Nsejqwb, [place] [address]BE: 03/07/2018 Secondary NOT GIVENUNK Champion Insurance:SELF PAY [facility] Hospital Number: Effective Repository Date:2018-01-27 03/01/2018 GAIL Ortega Primary LIANNA Rosa [id number] N Insurance:ANTHEMPolicy MENNERDOB: Community BEVER Number: [id number], [place] [id number] Repository 93429Vvj: (330) Date:1459-86-64Bl Box [phone] () 664074Qaolldj, [place] [address]OY: 03/01/2018 Secondary NOT GIVENUNK Rosa Insurance:SELF PAY [facility] Number: Effective Repository Date:2018-02-25 02/28/2018 GAIL Ortega Primary LIANNA Rosa [id number] N Insurance:ANTHEMPolicy MENNERDOB: [facility] BEVER Number: [id number], [place] [id number] Repository 24642Uao: (330) Date:5097-23-05Zc [address] [phone] () 612034Cffcumk, [place] [address]WQ: 02/28/2018 Secondary GAIL A Champion Insurance:CHEMO PAJAKDOB: [facility] [id number] Hospital Number: 0Effective Repository Date:2017-07-09 02/28/2018 Tertiary NOT GIVENUNK Champion Insurance:SELF PAY [facility] Hospital Number: Effective Repository Date:2018-02-28 02/28/2018 GAIL Ortega Primary LIANNA Champion [id number] N Insurance:ANTHEMPolicy MENNERDOB: Community BEVER Number: [id number], [place] [id number] Repository 29227Fib: (330) Date:1635-50-58Xo [address] [phone] () 573513Vxzpjgb, [place] [address]IP: 02/28/2018 Secondary NOT GIVENUNK Rosa Insurance:SELF PAY [facility] Number: Effective Repository Date:2018-01-26 02/28/2018 GAIL Ortega Primary LIANNA Champion [id number] N Insurance:ANTHEMPolicy MENNERDOB: Community BEVER Number: [id number], [place] [id number] Repository 95792Afr: (330) Date:3796-54-78Zk [address] [phone] () 777051Zphvuqr, [place] [address]NF: 02/28/2018 Secondary NOT GIVENUNK Champion Insurance:SELF PAY [facility] Number: Effective Repository Date:2018-02-28 02/21/2018 GAIL Ortega Primary LIANNA Rosa [id number] N Insurance:ANTHEMPolicy MENNERDOB: [facility] BEVER Number: [id number], [place] [id number] Repository 77578Kjt: (330) Date:7183-70-77Xd [address] [phone] () 002064Ictyslk, [place] [address]BX: 02/21/2018 Secondary NOT GIVENUNK Champion Insurance:SELF PAY [facility] Number: Effective Repository Date:2018-02-21 02/15/2018 GAIL Ortega Primary LIANNA Champion [id number] N Insurance:ANTHEMPolicy MENNERDOB: [facility] BEVER Number: [id number], [place] [id number] Repository 81228Hes: (330) Date:5710-82-25Lu [address] [phone] () 611844Bucjvqn, [place] [address]CB: 02/15/2018 Secondary NOT GIVENUNK Champion Insurance:SELF PAY [facility] Number: Effective Repository Date:2018-02-15 02/14/2018 GAIL Ortega Primary LIANNA Rosa [id number] N Insurance:ANTHEMPolicy MENNERDOB: [facility] Number: [id number], [place] [id number] Repository 62422Gwb: (330) Date:7969-59-44Qo [address] [phone] () 379678Exeahxq, [place] [address]MN: 02/14/2018 Secondary NOT GIVENUNK Champion Insurance:SELF PAY [facility] Number: Effective Repository Date:2018-02-14 02/07/2018 GAIL Ortega Primary LIANNA Rosa [id number] N Insurance:ANTHEMPolicy MENNERDOB: [facility] Number: [id number], [place] [id number] Repository 55519Tqf: (330) Date:7409-34-45Sn Box [phone] () 554417Mkhoknw, [place] [address]ET: 02/07/2018 Secondary NOT GIVENUNK Rosa Insurance:SELF PAY [facility] Number: Effective Repository Date:2018-02-07 02/02/2018 GAIL Primary Insurance:BLUE LIANNA R [facility] [place] [facility] AMAURYKDOB: [facility] Health System N Number: [id number] Mexico [facility]al [facility] [id number] [place] Date: [address]Kzi: () 01/31/2018 GAIL Ortega Primary LIANNA Rosa [id number] N Insurance:ANTHEMPolicy MENNERDOB: [facility] BEVER Number: [id number], [place] [id number] Repository 96333Uvj: (330) Date:3069-48-20Iw Box [phone] () MATHEW Willard 20[address]IV: 01/31/2018 Secondary NOT GIVENUNK Rosa Insurance:SELF PAY [facility] Number: Effective Repository Date:2018-01-31 01/31/2018 GAIL Ortega Primary LIANNA Champion [id number] N Insurance:ANTHEMPolicy MENNERDOB: Community BEVER Number: [id number], [place] [id number] Repository 73686Lqt: (330) Date:7904-00-62Vq Box [phone] () 939261NohoakzMATHEW Montelongo [address]LF: 01/31/2018 Secondary NOT GIVENUNK Champion Insurance:SELF PAY [facility] Number: Effective Repository Date:2018-01-31 01/31/2018 GAIL Ortega Primary LIANNA Champion [id number] N Insurance:ANTHEMPolicy MENNERDOB: Community BEVER Number: [id number], [place] [id number] Repository 42744Xcl: (330) Date:4796-07-61Wy Box [phone] () 837598Sqegkhr, [place] [address]JD: 01/31/2018 Secondary NOT GIVENUNK Champion Insurance:SELF PAY [facility] Number: Effective Repository Date:2018-01-16 01/31/2018 GAIL Ortega Primary LIANNA Rosa [id number] N Insurance:ANTHEMPolicy MENNERDOB: Community BEVER Number: [id number], [place] [id number] Repository 49146Chq: (330) Date:1887-32-49Ts Box [phone] () 991997PkxarixMATHEW Montelongo [address]FP: 01/31/2018 Secondary NOT GIVENUNK Champion Insurance:SELF PAY [facility] Number: Effective Repository Date:2018-01-31 01/27/2018 GAIL Ortega Primary LIANNA Rosa [id number] N Insurance:ANTHEMPolicy MENNERDOB: Community BEVER Number: [id number], [place] [id number] Repository 45047Svh: (330) Date:4366-98-61Dc [address] [phone] () 275447Yjcffki, [place] [address]YQ: 01/27/2018 Secondary NOT GIVENUNK Rosa Insurance:SELF PAY [facility] Number: Effective Repository Date:2018-01-27 01/27/2018 GAIL Ortega Primary LIANNA Rosa [id number] N Insurance:ANTHEMPolicy MENNERDOB: Community BEVER Number: [id number], [place] [id number] Repository 72212Isf: (330) Date:5852-58-81Go Box [phone] () 310815Kccusao, [place] [address]TR: 01/27/2018 Secondary NOT GIVENUNK Champion Insurance:SELF PAY [facility] Number: Effective Repository Date:2018-01-27 01/26/2018 GAIL Ortega Primary LIANNA Champion [id number] N Insurance:ANTHEMPolicy MENNERDOB: Community BEVER Number: [id number], [place] [id number] Repository 86959Gjh: (330) Date:2635-11-06La [address] [phone] () 486848Fmzcppr, [place] [address]NO: 01/26/2018 Secondary GAIL Ortega Champion Insurance:CHEMO PAJAKDOB: [facility] [id number] Hospital Number: 0Effective Repository Date:2017-10-27 01/26/2018 Tertiary NOT GIVENUNK Champion Insurance:SELF PAY [facility] Number: Effective Repository Date:2017-10-27 01/24/2018 GAIL A Primary LIANNA Champion [id number] N Insurance:ANTHEMPolicy MENNERDOB: Community BEVER Number: [id number], [place] [id number] Repository 57984Qem: (330) Date:4945-28-84Bu [address] [phone] () 818715Duzircf, [place] [address]VI: 01/24/2018 Secondary NOT GIVENUNK Rosa Insurance:SELF PAY [facility] Number: Effective Repository Date:2018-01-24 01/24/2018 GAIL Ortega Primary LIANNA Champion [id number] N Insurance:ANTHEMPolicy MENNERDOB: Community BEVER Number: [id number], [place] [id number] Repository 05836Nxs: (330) Date:6332-60-00Gn [address] [phone] () 182524Wqwwlhe, [place] [address]SR: 01/24/2018 Secondary NOT GIVENUNK Champion Insurance:SELF PAY [facility] Number: Effective Repository Date:2018-01-24 01/13/2018 GAIL Ortega Primary LIANNA Champion [id number] N Insurance:ANTHEMPolicy MENNERDOB: Community [place]EVER [place]: [id number] [id number] Repository [address]Bnb: (330) Date:3460-10-75Lr [phone] () [address]18690Efvthje, [place] [address]OL: 01/13/2018 Secondary NOT GIVENUNK Champion Insurance:SELF PAY [facility] Number: Effective Repository Date:2018-01-13 01/13/2018 GAIL Ortega Primary LIANNA Rosa [id number] N Insurance:ANTHEMPolicy MENNERDOB: [facility] BEVER Number: [id number], [place] [id number] Repository 06[address]Wal: 330) Date:8068-41-18Va [phone] () 846023Phcnqfb, [place] [address]WV: 01/13/2018 Secondary NOT GIVENUNK Champion Insurance:SELF PAY [facility] Number: Effective Repository Date:2018-01-13 01/13/2018 GAIL Ortega Primary LIANNA Champion [id number] N Insurance:ANTHEMPolicy MENNERDOB: Community BEVER Number: [id number] [id number] Repository 20[address]Tws: (330) Date:9228-61-92Pp [phone] () MATHEW Willard [address]ZZ: 01/13/2018 Secondary NOT GIVENUNK Rosa Insurance:SELF PAY [facility] Number: Effective Repository Date:2018-01-13 01/13/2018 GAIL Ortega Primary LIANNA Champion [id number] N Insurance:ANTHEMPolicy MENNERDOB: Community BEVER Number: [id number], [place] [id number] Repository [address]Rmm: (330) Date:1505-56-70Qj [phone] () MATHEW Willard [address]AZ: 01/13/2018 Secondary NOT GIVENUNK Rosa Insurance:SELF PAY [facility] Number: Effective Repository Date:2018-01-13 01/13/2018 GAIL Ortega Primary LIANNA Champion [id number] N Insurance:ANTHEMPolicy MENNERDOB: Community BEVER Number: [id number], [place] [id number] Repository [address]Qgm: (330) Date:0953-28-60Qh [phone] () 234528Xpzufow, [place] [address]ML: 01/13/2018 Secondary NOT GIVENUNK Rosa Insurance:SELF PAY [facility] Number: Effective Repository Date:2018-01-13 01/13/2018 GAIL Ortega Primary LIANNA Champion [id number] N Insurance:ANTHEMPolicy MENNERDOB: Community BEVER Number: [id number], [place] [id number] Repository [address]Vbt: (330) Date:1369-19-33Eh [phone] () [id number] Montelongo [address]KO: 01/13/2018 Secondary NOT GIVENUNK Rosa Insurance:SELF PAY [facility] Number: Effective Repository Date:2018-01-13 01/13/2018 GAIL Ortega Primary LIANNA Rosa [id number] N Insurance:ANTHEMPolicy MENNERDOB: Community BEVER Number: [id number], [place] [id number] Repository [address]Dqi: (330) Date:6486-84-33Sv [address] [phone] () MATHEW Willard 07896XV: 01/13/2018 Secondary NOT GIVENUNK Rosa Insurance:SELF PAY [facility]: Effective Repository Date:2018-01-13 01/13/2018 GAIL Ortega Primary LIANNA Champion [id number] N Insurance:ANTHEMPolicy MENNERDOB: [facility] BEVER Number: [id number], [place] [id number] Repository [address]Mdx: (330) Date:0738-89-99Dt [phone] () MATHEW Willard [address]XC: 01/13/2018 Secondary NOT GIVENUNK Champion Insurance:SELF PAY [facility] Number: Effective Repository Date:2018-01-13 01/13/2018 GAIL Ortega Primary LIANNA Champion [id number] N Insurance:ANTHEMPolicy MENNERDOB: [facility] BEVER Number: [id number], [place] [id number] Repository [address]Crc: (330) Date:1712-10-66Xo [phone] () MATHEW Willard [address]24[address]AQ: 01/13/2018 Secondary NOT GIVENUNK Rosa Insurance:SELF PAY [facility] Number: Effective Repository Date:2018-01-13 01/10/2018 GAIL Ortega Primary LIANNA Champion [id number] N Insurance:ANTHEMPolicy MENNERDOB: [facility] BEVER Number: [id number], [place] [id number] Repository 95[address]Bvh: (330) Date:6963-01-35Vi [address] [phone] () MATHEW Willard 006[address]TJ: 01/10/2018 Secondary GAIL A Rosa Insurance:CHEMO PAJAKDOB: [facility] [id number] Hospital Number: Repository [id number] Date:2017-12-22 01/10/2018 Tertiary NOT GIVENUNK Champion Insurance:SELF PAY [facility] Number: Effective Repository Date:2017-12-22 01/10/2018 GAIL A Primary LIANNA Champion [id number] N Insurance:ANTHEMPolicy MENNERDOB: Community BEVER Number: [id number], [place] [id number] Repository 765[address]Klh: 330) Date:2935-49-23Ht [address] [phone] () [address] [place] [address]AF: 01/10/2018 Secondary NOT GIVENUNK Champion Insurance:SELF PAY [facility] Number: Effective Repository Date:2018-01-10 01/10/2018 GAIL A Primary LIANNA Champion [id number] N Insurance:ANTHEMPolicy MENNERDOB: [facility] BEVER Number: [id number], [place] [id number] Repository [address]Sse: (330) Date:2352-81-91Sw [address] [phone] () [address] [place] [address] 42958TP: 01/10/2018 Secondary NOT GIVENUNK Rosa Insurance:SELF PAY [facility] Number: Effective Repository Date:2018-01-10 01/07/2018 GAIL A Primary LIANNA Rosa [id number] N Insurance:ANTHEMPolicy MENNERDOB: [facility] BEVER Number: [id number], [place] [id number] Repository 336[address]Xxg: (330) Date:3986-46-24Pp [phone] () [address] [place] [address]39[address]WJ: 01/07/2018 Secondary GAIL A Roas Insurance:CHEMO PAJAKDOB: [facility] [id number] Hospital Number: 0Effective Repository Date:2018-01-07 01/07/2018 Tertiary NOT GIVENUNK Rosa Insurance:SELF PAY [facility] Number: Effective Repository Date:2018-01-07 01/04/2018 GAIL A Primary LIANNA Rosa [id number] N Insurance:ANTHEMPolicy MENNERDOB: Community BEVER Number: [id number], [place] [id number] Repository 13157Tps: (330) Date:3975-49-65Dy [phone] () [address] [place] [address] 56219LD: 01/04/2018 Secondary GAIL A Rosa Insurance:CHEMO PAJAKDOB: [facility] [id number] Hospital Number: 0Effective Repository Date:2017-12-23 01/04/2018 Tertiary NOT GIVENUNK Rosa Insurance:SELF PAY [facility] Number: Effective Repository Date:2017-12-23 01/03/2018 GAIL A Primary LIANNA Champion [id number] N Insurance:ANTHEMPolicy MENNERDOB: Community BEVER Number: [id number], [place] [id number] Repository 584[address]Dzl: (330) Date:8396-31-06Hh [address] [phone] () [address] [place] [address] 79086ZG: 01/03/2018 Secondary GAIL A Rosa Insurance:CHEMO PAJAKDOB: [facility] [id number] Hospital Number: Repository [id number] Date:2018-01-03 01/03/2018 Tertiary NOT GIVENUNK Rosa Insurance:SELF PAY [facility] Number: Effective Repository Date:2018-01-03 01/03/2018 GAIL A Primary LIANNA Rosa [id number] N Insurance:ANTHEMPolicy MENNERDOB: Community BEVER Number: [id number], [place] [id number] Repository 67333Xlb: (330) Date:8732-04-78Pg [address] [phone] () 548[address]Yvynuvm, [place] [address]EJ: 01/03/2018 Secondary NOT GIVENUNK Champion Insurance:SELF PAY Community [facility] Number: Effective Repository Date:2018-01-03 01/03/2018 GAIL A Primary LIANNA Champion [id number] N Insurance:ANTHEMPolicy MENNERDOB: Community BEVER Number: [id number], [place] [id number] Repository 211[address]Rqo: 330) Date:5333-05-28Qp [address] [phone] () [address] [place] [address] 01601DT: 01/03/2018 Secondary GAIL A Champion Insurance:CHEMO PAJAKDOB: [facility] [id number] Hospital Number: Repository [id number] Date:2018-01-03 01/03/2018 Tertiary NOT GIVENUNK Rosa Insurance:SELF PAY [facility] Number: Effective Repository Date:2018-01-03 01/03/2018 GAIL A Primary LIANNA Champion [id number] N Insurance:ANTHEMPolicy MENNERDOB: Community BEVER Number: [id number], [place] [id number] Repository 21[address]Kar: (330) Date:1506-39-79Jz [address] [phone] () [address] [place] [address] 62810BV: 01/03/2018 Secondary GAIL A Champion Insurance:CHEMO PAJAKDOB: [facility] [id number] Hospital Number: Repository [id number] Date:2018-01-03 01/03/2018 Tertiary NOT GIVENUNK Rosa Insurance:SELF PAY [facility] Number: Effective Repository Date:2018-01-03 12/30/2017 GIAL A Primary LIANNA Champion [id number] N Insurance:ANTHEMPolicy MENNERDOB: Community BEVER Number: [id number], [place] [id number] Repository [address]Mgw: 330) Date:4294-14-99La [address] [phone] () [address] [place] [address] 43071TS: 12/30/2017 Secondary GAIL A Champion Insurance:CHEMO PAJAKDOB: [facility] [id number] Hospital Number: 0Effective Repository Date:2017-12-09 12/30/2017 Tertiary NOT GIVENUNK Champion Insurance:SELF PAY [facility] Number: Effective Repository Date:2017-12-09 12/27/2017 GAIL A Primary LIANNA Champion [id number] N Insurance:ANTHEMPolicy MENNERDOB: Community BEVER Number: [id number], [place] [id number] Repository 77433Ciq: (330) Date:5363-32-36Bo [address] [phone] () [id number] [place] [address] 64135UQ: 12/27/2017 Secondary NOT GIVENUNK Champion Insurance:SELF PAY [facility] Number: Effective Repository Date:2017-12-27 12/24/2017 GAIL A Primary LIANNA Rosa [id number] N Insurance:ANTHEMPolicy MENNERDOB: Community BEVER Number: [id number], [place] [id number] Repository 20420Knd: (330) Date:7094-63-52Ga [address] [phone] () [address] [place] [address] [place] [address]QE: 12/24/2017 Secondary GAIL A Rosa Insurance:CHEMO PAJAKDOB: [facility] [id number] Hospital Number: 0Effective Repository Date:2017-12-24 12/24/2017 Tertiary NOT GIVENUNK Champion Insurance:SELF PAY [facility] Number: Effective Repository Date:2017-12-24 12/23/2017 GAIL A Primary LIANNA Rosa [id number] N Insurance:ANTHEMPolicy MENNERDOB: Community BEVER Number: [id number], [place] [id number] Repository 68847Dnc: 330) Date:4008-78-08Hx [address] [phone] () [address] [place] [address] [place] [address]QU: 12/23/2017 Secondary NOT GIVENUNK Rosa Insurance:SELF PAY Community [facility] Number: Effective Repository Date:2017-12-22 12/23/2017 GAIL A Primary LIANNA Rosa [id number] N Insurance:ANTHEMPolicy MENNERDOB: Community BEVER Number: [id number], [place] [id number] Repository 91595Hdy: (330) Date:1966-63-22Px [address] [phone] () [address] [place] [address] 43726FQ: 12/23/2017 Secondary GAIL A Champion Insurance:CHEMO PAJAKDOB: [facility] [id number] Hospital Number: 0Effective Repository Date:2017-12-06 12/23/2017 Tertiary NOT GIVENUNK Rosa Insurance:SELF PAY [facility] Number: Effective Repository Date:2017-12-23 12/23/2017 GAIL A Primary LIANNA Champion [id number] N Insurance:ANTHEMPolicy MENNERDOB: Community BEVER Number: [id number], [place] [id number] Repository 37930Dzu: (330) Date:3425-63-42Nt [address] [phone] () [address] [place] [address] 21087EP: 12/23/2017 Secondary GAIL A Rosa Insurance:CHEMO PAJAKDOB: [facility] [id number] Hospital Number: 0Effective Repository Date:2017-12-06 12/23/2017 Tertiary NOT GIVENUNK Champion Insurance:SELF PAY [facility] Number: Effective Repository Date:2017-12-06 12/22/2017 GAIL A Primary LIANNA Rosa [id number] N Insurance:ANTHEMPolicy MENNERDOB: Community BEVER Number: [id number], [place] [id number] Repository 91968Lxl: (893) Date:7723-30-51Ec [address] [phone] () [address] [place] [address] 15736VZ: 12/22/2017 Secondary NOT GIVENUNK Rosa Insurance:SELF PAY [facility] Number: Effective Repository Date:2017-12-10 12/21/2017 GAIL Primary Insurance:BLUE LIANNA R [facility] PAJAKDOB: ACCESS PPO Policy MENNERDOB: [facility] N Number: [id number] Repository [facility] [id number] [place] Date: [address]Xow: () 12/10/2017 GAIL A Primary LIANNA Rosa [id number] N Insurance:ANTHEMPolicy MENNERDOB: [facility] Number: [id number], [place] [id number] Repository 41857Bhi: (461) Date:5836-35-14Yp [address] [phone] () [address] [place] [address] 62898VQ: 12/10/2017 Secondary GAIL A Rosa Insurance:CHEMO PAJAKDOB: [facility] [id number] Hospital Number: 0Effective Repository Date:2017-12-07 12/10/2017 Tertiary NOT GIVENUNK Champion Insurance:SELF PAY [facility] Number: Effective Repository Date:2017-12-07 12/09/2017 GAIL A Primary LIANNA Champion [id number] N Insurance:ANTHEMPolicy MENNERDOB: [facility] BEVER Number: [id number], [place] [id number] Repository 39715Kfw: 330) Date:0942-80-64Ec [address] [phone] () [id number] [place] [address] 36931SO: 12/09/2017 Secondary NOT GIVENUNK Rosa Insurance:SELF PAY [facility] Number: Effective Repository Date:2017-11-22 12/09/2017 GAIL A Primary LIANNA Champion [id number] N Insurance:ANTHEMPolicy MENNERDOB: [facility] BEVER Number: [id number], [place] [id number] Repository 95894Amp: (330) Date:2910-45-76Kx [address] [phone] () 175537Hykdbte, [place] [address]LP: 12/09/2017 Secondary NOT GIVENUNK Champion Insurance:SELF PAY Community [facility] Number: Effective Repository Date:2017-12-09 12/06/2017 GAIL Ortega Primary LIANNA Rosa [id number] N Insurance:ANTHEMPolicy MENNERDOB: Community BEVER Number: [id number], [place] [id number] Repository 85902Oll: (330) Date:7152-62-24Ix [address] [phone] () 460394Rvuidqy, [place] [address]JS: 12/06/2017 Secondary NOT GIVENUNK Champion Insurance:SELF PAY [facility] Number: Effective Repository Date:2017-12-06 11/15/2017 GAIL Ortega Primary LIANNA Rosa [id number] N Insurance:ANTHEMPolicy MENNERDOB: Community BEVER Number: [id number], [place] [id number] Repository 16268Zrv: (330) Date:6542-74-97Hg Box [phone] () 257194Qykjsju, [place] [address]JQ: 11/15/2017 Secondary NOT GIVENUNK Champion Insurance:SELF PAY [facility] Number: Effective Repository Date:2017-11-15 11/11/2017 GAIL Ortega Primary LIANNA Rosa [id number] N Insurance:ANTHEMPolicy MENNERDOB: Community BEVER Number: [id number], [place] [id number] Repository 37338Ana: (330) Date:5179-62-90Kb [address] [phone] () 359[address], [place] [address]EG: 11/11/2017 Secondary NOT GIVENUNK Champion Insurance:SELF PAY [facility] Number: Effective Repository Date:2017-11-11 10/27/2017 GAIL Ortega Primary LIANNA Champion [id number] N Insurance:ANTHEMPolicy [facility] MARYVALEDOB: [facility] Number: [id number], [place] [id number] Repository 59515Ekm: (330) Date:2059-46-38Gb [address] [phone] () 813290Oyfeqqz, [place] [address]XQ: 10/27/2017 Secondary NOT GIVENUNK Rosa Insurance:SELF PAY [facility] Number: Effective Repository Date:2017-10-07
== END 2018-09-27 13:04 | disposition home or self-care (01) ==
LOC: SDC 06:43 → AC 06:44 → MS3 08:32 → AC 09:23
PROVIDERS: Anesthesiology; Family Provider Family Medicine; PCP Family Medicine; Referring Provider Surgery; Visit Provider Surgery
PROC: (CPT 19380; principal; 2018-09-27 07:50)
DX: N65.1 Disproportion of reconstructed breast (principal); L59.8 Other specified disorders of the skin and subcutaneous tissue related to radiation; L90.5 Scar conditions and fibrosis of skin; Y84.2 Radiological procedure and radiotherapy as the cause of abnormal reaction of the patient, or of later complication, without mention of misadventure at the time of the procedure; E03.9 Hypothyroidism, unspecified; J45.909 Unspecified asthma, uncomplicated; E28.2 Polycystic ovarian syndrome; E55.9 Vitamin D deficiency, unspecified; G89.29 Other chronic pain; G47.33 Obstructive sleep apnea (adult) (pediatric); F32.9 Major depressive disorder, single episode, unspecified; F41.9 Anxiety disorder, unspecified; Z79.899 Other long term (current) drug therapy; Z85.3 Personal history of malignant neoplasm of breast; Z92.21 Personal history of antineoplastic chemotherapy; Z92.3 Personal history of irradiation; Z87.891 Personal history of nicotine dependence; Z86.73 Personal history of transient ischemic attack (TIA), and cerebral infarction without residual deficits; Z90.12 Acquired absence of left breast and nipple
CPT/HCPCS: 00402; 19380; 81025; 87070; 87075; 87102; 87205; 87206; 88304; 88305; J7120; A4216; J0295; J2405

== ENCOUNTER 2018-10-25 10:20 | Day surgery (SDC) | payer BC, SELFPAY ==
[2018-09-12 11:43] VITALS: BMI 36.4
[2018-10-17 13:03] VITALS: BMI 32.3
[2018-10-25] VITALS (7 sets, daily range): BP systolic 125–138; BP diastolic 78–98; PULSE 92–102; RESP 16; TEMP 36.7–37.2; O2SAT 96–100; BMI 30.6
[2018-10-25 10:45] LABS: Internal QC Validated? YES +Cl - CLEAR BKGD; Pregnancy, Urine Negative Negative
[2018-10-25] MEDS: Cefazolin 2 GM in 0.9% Normal Saline 100 ML IV (11:40)
--- NOTE | 2018-10-25 11:48 | OP.PCM_ITS ---
Problem List (1) Encounter for adjustment or management of vascular access device Status: Acute Report of Operation Date of Procedure: 10/25/18 Pre-Operative Diagnosis: Vascular catheter fitting or adjustment Post-Operative Diagnosis: Same Surgery/Procedure Performed:: Removal of a right subclavian PowerPort Type of Anesthesia:: Local MAC Anesthesiologist: Isac Bryant Estimated Blood Loss (mL): < 25 cc Description of Procedure: Patient was brought into the operating. Placed in the supine position. The right shoulder area and chest area was sterilely prepped and draped in usual fashion. Local was injected. I opened up her old incision and used electrocautery to get down to the pocket which was extremely deep in the left upper quadrant of her chest area. I was able to identify the catheter pulled this out of the subclavian vein without difficulty it was entirely intact and I was able to read all the numbers on it. I then remove the port from the pocket created with a scalpel this was an old PowerPort and all of the openings had scarred into the chest wall area. I was able to use electrocautery to obtain good hemostasis and the port eventually did come out. I am very glad that I decided to do this in the OR since it was extremely deep and I needed electrocautery to obtain the good hemostasis. Once I had good hemostasis I then brought the wound together with interrupted sutures in a deep dermal fashion of 3-0 Vicryl. Steri-Strips were applied sterile dressings were applied and the p atient tolerated the procedure well. We will place sandbag on the chest area for approximately an hour to ensure good hemostasis. - Admit VTE Documentation VTE Present on Admission: No VTE Mechan Device Prophylaxis: SCD's VTE Pharm Prophylaxis ordered?: No Reason prophylaxis not ordered:: Treatment Not Indicated
--- NOTE | 2018-10-25 11:49 | DCINST_ITS ---
Discharge Diet: No Restrictions - Pain medication may cause nausea. You should typically eat light foods as you take your pain medication. Discharge Activity: May Shower - with the bandage in place 1-2 days after surgery. DO NOT SHOWER WHEN YOUR PORT IS ACCESSED. Additional Activity Instructions:: May not drive, work with heavy equipment, or sign legal documents for [address] if you are no longer taking narcotic pain medications. You may drive when you are no longer taking pain medications. Additional Dressing/Incision Instructions:: Leave the bandage on for 2-3 days. When you remove the bandage, leave the steri-strips intact until they fall off. Allergies/Adverse Reactions: Allergies hydromorphone [From Dilaudid] Allergy (Severe, Verified 10/24/18 08:57) Laryngospasms morphine Allergy (Severe, Verified 10/24/18 08:57) chest tightening TAPE Adverse Reaction (Mild, Uncoded 10/24/18 08:57) Other Medications to take at Discharge armodafinil 50 mg tablet 50 mg PO QAM 08/26/18 Levothyroxine Sodium [Synthroid] 25 mcg PO MOTUWETHFRSA 09/12/18 Dextroamphetamine Sulfate [Dextroamphetamine Sulfate ER] 15 mg PO BID 09/14/18 Digestive 8/L.acidoph/Pectin [Digestive Enzymes Tablet] 1 ea PO BID 09/20/18 Iron Polysaccharide Complex [Ferrex 150] 150 mg PO DAILYCM 09/20/18 L.acidoph,Paracasei, B.lactis [Probiotic] 1 ea PO DAILY 09/20/18 Multivitamin [Multiple Vitamins] 1 ea PO DAILY 09/20/18 diazepam 5 mg tablet 5 mg PO 4X/DAY PRN #30 tab 10/05/18 oxycodone-acetaminophen 5 mg-325 mg tablet 1 tab PO Q8H PRN 7 Days #20 tab 10/21/18 Oxycodone HCl/Acetaminophen [Percocet 5/325] 1 - 2 tab PO Q4H PRN PRN 5 Days #14 tab 10/25/18 The following prescriptions were given: Oxycodone HCl/Acetaminophen [Percocet 5/325] 1 - 2 tab PO Q4H PRN PRN 5 Days #14 tab PRN Reason: Pain Primary Care Physician: Rhett Elias MD [Primary Care Provider] - Test Results: Test results from this visit will be discussed in further detail at your follow- up appointment, if applicable. Please Follow Up With: Evangelist Moseley MD - [phone] When: Please plan to follow up in 7 days in the office.
[2018-10-25] MEDS: Bupivacaine 0.25% 30 ML Vial (11:55)
--- NOTE | 2018-10-25 12:15 | MISC_PTH ---
PATIENT: VARINDER LACEY LOC: [facility] [place] U#:[id number] AGE/SX: 33/F ROOM: RE10/25/[address]: Dr. Evangelist Moseley MD : [id number] BED: DIS: 10/25/2018 SPEC #: [id number] RECD: 10/25/18 13:11 STATUS: REGGIE KARLEI #: [id number] GURU: 10/25/18 12:[address]: Evangelist Moseley DEPT: SURGICAL PATHOLOGY RECD BY: Liu Porter ENTERED: 10/25/18 13:22 SP TYPE: MISC OTHR DR: Dr. Rhett Elias MD Tissues: NO TISSUE Procedures: Surgery Specimen Level I Surgery Specimen Level III HEADER OPERATION: Port removal PRE-OP DIAGNOSIS: Vascular catheter fitting or adjustment TISSUE SUBMITTED: Right chest vascular port MICROSCOPIC DIAGNOSIS Right chest vascular port: Consistent with vascular port (gross only). A piece of fibroadipose and fibroconnective tissue with mild chronic inflammation, histiocytic reaction and reactive changes. SJ:sharon 10/26/18 MICROSCOPIC DESCRIPTION Slides are reviewed. GROSS DESCRIPTION Received is one container labeled with the patient's name and not further designated. The specimen consists of a purple triangular synthetic port measuring 2.5 x 2 x 1.2 cm. Minute fragments of soft tissue are adherent to the port measuring in aggregate 1 x 0.5 x 0.2 cm. Also present in the specimen container is a blue plastic/synthetic tube measuring 18 cm in length. No breaks or tears are identified in either synthetic fragment. The soft tissue is submitted in one cassette. / AM:sharon 10/25/18 TC:5 CPT: 68332, 15287
== END 2018-10-25 13:46 | disposition home or self-care (01) ==
LOC: SDC 10:20 → AC 10:23
PROVIDERS: Family Provider Family Medicine; PCP Family Medicine; Referring Provider Surgery; Visit Provider Surgery
PROC: (CPT 36590; principal; 2018-10-25 12:00)
DX: Z45.2 Encounter for adjustment and management of vascular access device (principal); G47.411 Narcolepsy with cataplexy; D64.9 Anemia, unspecified; E07.9 Disorder of thyroid, unspecified; J45.909 Unspecified asthma, uncomplicated; G47.30 Sleep apnea, unspecified; Z79.891 Long term (current) use of opiate analgesic; Z79.899 Other long term (current) drug therapy; Z92.21 Personal history of antineoplastic chemotherapy; Z85.3 Personal history of malignant neoplasm of breast; Z87.01 Personal history of pneumonia (recurrent); Z87.440 Personal history of urinary (tract) infections; Z87.891 Personal history of nicotine dependence; Z90.12 Acquired absence of left breast and nipple
CPT/HCPCS: 00400; 36590; 81025; 88300; 88304; J7120

== ENCOUNTER 2018-10-31 13:30 | Outpatient (RCR) | payer BC, SELFPAY ==
[2017-09-29 13:07] VITALS: BMI 36.4
[2018-09-12 11:43] VITALS: BMI 36.4
[2018-10-25 10:44] VITALS: BMI 30.6
== END 2018-10-31 23:59 | disposition home or self-care (01) ==
LOC: NS 13:30
PROVIDERS: Family Provider Family Medicine; PCP Family Medicine; Visit Provider Student in an Organized Health Care Education/Training Program
DX: E66.9 Obesity, unspecified (principal); Z68.32 Body mass index [BMI] 32.0-32.9, adult; Z85.3 Personal history of malignant neoplasm of breast; Z71.3 Dietary counseling and surveillance
CPT/HCPCS: 97803

== ENCOUNTER → 2018-11-28 08:01 | Outpatient (CLI) | payer BC, SELFPAY ==
[2018-09-12 11:43] VITALS: BMI 36.4
[2018-11-21 11:37] VITALS: BMI 31.0
--- NOTE | 2018-11-28 08:04 | NM_ITS ---
CLINICAL: 33-year-old female with reported history of carcinoma of the breast with current complaint of right anterior chest wall pain. WHOLE BODY 99m Tc MDP RADIONUCLIDE BONE SCINTIGRAPHY COMPARISON: Previous whole body bone scintigraphy study dated 07/29/2017 FINDINGS: Following the intravenous administration of 25.0 mCi of 99m Tc MDP, whole body bone images reveal: 1. Enhanced tracer concentration is defined in the fourth lumbar vertebra anteriorly on the inferior articular surface, sternoclavicular compartments of both shoulders, upper cervical spine posteriorly on the left. 2. The remaining skeletal structures are scintigraphically unremarkable with normal-appearing renal images and urinary bladder activity identified. There is no evidence of abnormal increased radiopharmaceutical concentration involving the right anterior chest wall-ribs. NM/Bone Scan Whole Body IMPRESSION: 1. Increased radiopharmaceutical concentration currently identified in the fourth lumbar vertebra anteriorly, sternoclavicular compartments of both shoulders and upper cervical spine is most consistent with degenerative arthritis.. 2. Meticulous attention paid to the right anterior chest wall demonstrates no evidence of abnormal increased radiopharmaceutical concentration. Overall compared to the previous whole body bone scintigraphy study dated 07/29/2017, there is current and apparent continued absence of defined volume neoplastic disease. Electronically Signed: Liu Wu DO at 10:44 EST Tel , Service support ,
== END ==
PROVIDERS: Family Provider Family Medicine; PCP Family Medicine; Referring Provider Nurse Practitioner Family; Visit Provider Nurse Practitioner Family
DX: Z85.3 Personal history of malignant neoplasm of breast (principal)
CPT/HCPCS: 78306

== ENCOUNTER 2018-12-16 04:56 | Emergency (ER) | payer BC, SELFPAY ==
[2018-09-12 11:43] VITALS: BMI 36.4
[2018-12-15 13:25] VITALS: BMI 30.7
[2018-12-16 04:57] VITALS: BP 147/92; PULSE 114; RESP 16; TEMP 37.2; O2SAT 99; BMI 30.5
--- NOTE | 2018-12-16 05:09 | RAD_ITS ---
STUDY: X-RAY CHEST REASON FOR EXAM: Female, 33 years old. Shortness of breath TECHNIQUE: 2 views COMPARISON: January 31, 2018 FINDINGS: The lungs are clear and expanded. There is no demonstrated pleural abnormality. Normal size heart. Normal mediastinum and alie. Normal visualized pulmonary arteries. Normal visualized aortic arch and descending thoracic aorta. Normal visualized thoracic spine. Normal visualized ribs, clavicles, and shoulders. There is no demonstrated abnormality of the visualized soft tissue structures of the upper abdomen. RAD/Chest PA and Lateral IMPRESSION: Normal x-ray examination of the chest. No acute findings in the lungs Electronically Signed: Emmanuel Travis MD at 5:46 EST Tel , Service support ,
--- NOTE | 2018-12-16 05:10 | ED.VISSUMM ---
- ER Visit Summary Date of Service: 12/16/18 Chief Complaint: [] Shortness of breath History of Present Illness: The patient is a 33 F that she is feeling shortness of breath since this morning. Her woke her up and thought she was having a panic attack. She had a lot of nasal congestion and sore throat. She had a sick contact with influenza week ago. She does not think she had a flu shot. She uses a CPAP at night. She is not sure if it dried out her nose. She tried her albuterol inhaler and a steam shower with minimal relief of symptoms. She does have a history of a remote remote breast cancer in 2017. She is been in remission. She had her port removed on October 25. She is no longer getting treatment for that. Physical Examination: Vital signs reviewed General: Well-nourished well-developed Head: Normocephalic atraumatic Eyes: Pupils equal round and reactive to light extraocular movements intact ENT: TMs clear no hemotympanum no trauma positive nasal congestion Neck: Nontender full range of motion Cardiovascular: Regular tachycardia with normal rhythm no murmurs normal S1-S2 Respiratory: No distress clear to auscultation bilaterally chest nontender Abdomen: Soft nontender nondistended normal bowel sounds no masses Back: Nontender no CVA tenderness Extremities: Nontender active range of motion ?4 extremities no trauma Skin: Normal color no trauma Neuro alert oriented cranial nerves II through XII intact normal strength sensation reflexes Test Results: [] Emergency Department Course and Treatment: [] Lab work obtained including influenza. Lab work shows potassium 3.3. CBC normal. Influenza negative. Chest x-ray shows nothing acute. At this time I feel the patient likely just has significant nasal congestion. She had a CPAP mask on with her nose. I feel like she probably was not getting air through it well. I think she probably had a panic attack. At this time she is resting comfortably can be discharged. Treatment Plan: [] Disposition: [] Impression: [] Acute dyspnea with nasal stuffiness This note was generated with [employer] dictation software. It may contain incorrect words, spelling, and punctuation that were not noted in review of the chart prior to signing ED Disposition - Plan for ED Patient: Referrals: Rhett lEias MD [Primary Care Provider] -
[2018-12-16 05:39] LABS: Absolute Lymphocyte Count 1.45 X10^3/ul (0.83-4.51); Absolute Neutrophil Count 6.6 X10^3/uL (2.0-7.7); Basophil# 0.02 X10^3/uL; Basophil% 0.2 % (0-1); Eosinophil# 0.07 X10^3/uL; Eosinophils% 0.8 % (0-5); Hematocrit 35.6 % (37-47); Hemoglobin 12.1 g/dl (12.0-15.0); Lymphocyte # 1.45 X10^3/ul (4.0); Lymphocyte % 16.7 % (19-41); Mean Corpuscular Hgb 28.9 pg (27.0-32.0); Mean Corpuscular Volume 85.2 fL (81-99); Mean Platelet Vol. 7.9 fl (6.2-12.0); Monocyte# 0.49 X10^3/uL; Monocyte% 5.6 % (0-10); Neutrophil # 6.64 X10^3/uL (2.7-7.7); Neutrophil % 76.5 % (47-70); Platelet Count 156 K/mm3 (150-450); RBC Distribution Width SD 39.1 fl (35.1-43.9); Red Blood Count 4.18 M/mm3 (4.2-5.4); White Blood Count 8.7 K/mm3 (4.4-11.0)
[2018-12-16 05:41] LABS: Anion Gap 13 (5-15); BUN 15 mg/dL (7-18); Calcium,Total 8.6 mg/dL (8.5-10.1); Chloride 109 mmol/L (98-107); Creatinine, Serum 0.83 mg/dL (0.55-1.02); EST Glomerular Filtration Rate 83 mL/min (>60); Est Glom Filt Rate - Afr Amer 100 mL/min (>60); Estimated Creatinine Clearance 96.34 ml/min; Glucose 104 mg/dL (74-106); Potassium 3.3 mmol/L (3.5-5.1); Sodium Level 143 mmol/L (136-145)
[2018-12-16 05:54] LABS: POSITIVE COUNT NO; POSITIVE DIFFERENTIAL NO
[2018-12-16 05:55] LABS: POSITIVE MORPHOLOGY NO
[2018-12-16 06:00] VITALS: BP 126/81; PULSE 95; RESP 28; O2SAT 99
--- NOTE | 2018-12-16 06:01 | ED.DEP ---
ED Disposition - Plan for ED Patient: Disposition: Home or Assisted Living Instructions: ED Dyspnea Shortness of Breath Referrals: Rhett Elias MD [Primary Care Provider] -
== END 2018-12-16 06:09 | disposition home or self-care (01) ==
PROVIDERS: Emergency Provider Emergency Medicine; Family Provider Family Medicine; PCP Family Medicine
DX: R06.00 Dyspnea, unspecified (principal); R09.81 Nasal congestion; R05 Cough; J02.9 Acute pharyngitis, unspecified; E03.9 Hypothyroidism, unspecified; Z79.899 Other long term (current) drug therapy; Z85.3 Personal history of malignant neoplasm of breast
CPT/HCPCS: 71046; 80048; 85025; 87804; 99282

== ENCOUNTER 2019-02-03 13:37 | Emergency (ER) | payer BC, SELFPAY ==
[2018-09-12 11:43] VITALS: BMI 36.4
[2019-01-30 14:16] VITALS: BMI 30.5
[2019-02-03 13:39] VITALS: BP 147/95; PULSE 94; RESP 18; TEMP 37.1; O2SAT 99; BMI 30.7
--- NOTE | 2019-02-03 14:31 | ED.DCSUM_ITS ---
History of Present Illness Chief Complaint: Weakness Detail of Chief Complaint: Stiffness elbow, knee and ankle joint on the left Informant: Patient Onset: Today Context: Sudden Onset Timing: Continuous Quality: Difficulty moving upper and lower left extremity Location: Extremity on left Current Severity: Mild Maximum Severity: Moderate Worsened by: Nothing Relieved by: Nothing Associated Symptoms: Nothing Narrative: Patient is a 33-year-old woman with history of breast cancer and mastectomy on the left. She states prior to diagnosis of breast cancer she had an elevated rheumatoid factor. This was not worked up because she developed breast cancer. The etiology for the stiffness of her joints on the left side is unknown. She denies fever, chills night sweats. She denies weight gain or weight loss. She denies joint swelling or redness. She denies paresthesia, anesthesia or motor weakness. She has no other complaints - Past Medical History (1) Acquired absence of left breast and nipple Status: Acute (2) Transient global amnesia Status: Acute (3) Acquired hypothyroidism Status: Chronic (4) Anemia Status: Chronic Past Medical History - Allergies and Home Meds Allergies/Adverse Reactions: Allergies hydromorphone [From Dilaudid] Allergy (Severe, Verified 02/03/19 13:46) Laryngospasms morphine Allergy (Severe, Verified 02/03/19 13:46) chest tightening TAPE Adverse Reaction (Mild, Uncoded 02/03/19 13:46) Other Primary Care Physician: Rhett Elias MD [Primary Care Provider] - Prior records reviewed: Yes - Last chemo dose fall 2017 Surgical History: - Lives: Spouse/ Significant Other Smoking Status: Never smoker Drugs: None - Family History Maternal Family History: Family History (Last Reviewed 01/30/19 @ 14:15 by Ewa Flores) Mother Psychiatric disorder Thyroid disorder Father Hyperlipidemia Hypertension Father Heart disease Aunt Seizures Grandmother Cancer Colon cancer Grandfather Diabetes Heart disease Family History: Reports: - Paternal Family History: Family History (Last Reviewed 01/30/19 @ 14:15 by Ewa Flores) Mother Psychiatric disorder Thyroid disorder Father Hyperlipidemia Hypertension Father Heart disease Aunt Seizures Grandmother Cancer Colon cancer Grandfather Diabetes Heart disease Family History: Reports: Heart Disease, Hypertension Review of Systems General: Denies: Chills, Fever, Sweats Eyes: Denies: Visual changes - bilaterally, Diplopia ENT: Denies: Rhinorrhea, Sore throat Cardiovascular: Denies: Chest pain, Palpitations Respiratory: Denies: Dyspnea, Cough, Dyspnea on exertion Gastrointestinal: Denies: Abdominal pain, Nausea, Vomiting, Diarrhea, Melena, Hematochezia Genitourinary: Denies: Dysuria, Hematuria, Frequency Musculoskeletal: Reports: -, - - Patient reports joint stiffness left elbow, left knee and left ankle.. Denies: Myalgias, Arthralgias, Neck pain, Back pain, Extremity Pain Skin: Denies: Rash, Wounds Neurological: Denies: Headache, Weakness, Parasthesia, Numbness Hematologic: Denies: Easy bruising, Easy bleeding Allergy: Denies: Uticaria, Swelling of the mouth Physical Exam Vital Signs/Narrative: Vital Signs Temp Pulse Resp BP Pulse Ox 02/03/19 13:39 98.7 F 94 18 147/95 H 99 Inital Vital Signs reviewed: Yes General: Well nourished, Well developed, No Acute Distress Head: Normocephalic, Atraumatic Eyes: Perrl, EOMI ENT: Moist mucous membranes, No rhinorrhea Neck: Supple, Nontender Cardiovascular: Regular rate, Regular rhythm, No murmurs Respiratory: No distress, CTA bilaterally, Chest nontender Abdomen: Soft, Nontender, Nondistended, Normal bowel sounds Back: Nontender, Normal Inspection Extremities: Nontender, No edema, - - Radial pulses palpable and symmetric. There is no bogginess, erythema or warmth with palpation of the joints of the phalanges, hand, wrist, elbow, knee or ankle on the left side. Skin: Normal color, No rash. Negative for: Jaundice, Rash Neurological: Alert, Oriented x3, Cranial nerves II-XII grossly intact, Normal Strength, Normal Sensation, Normal DTR - Biceps, brachialis and triceps tendon are 2+ and symmetric. Psychological: Normal affect, Normal Mood Diagnostic/Tx/Re-eval Laboratory Results 02/03/19 02/03/19 14:34 14:34 WBC 6.9 RBC 4.42 Hgb 13.0 Hct 37.0 MCV 83.7 MCH 29.4 MCHC 35.1 RDW 13.1 RDW Differential 39.2 Plt Count 150 MPV 8.5 Immature Gran % (Auto) 0.100 Neut % (Auto) 70.6 H Lymph % (Auto) 22.3 [place] % (Auto) 5.8 Eos % (Auto) 0.9 Baso % (Auto) 0.3 Absolute Neuts (auto) 4.9 Absolute Lymphs (auto) 1.54 Total Counted Not Reportable ESR 4 Sodium 139 Potassium 3.9 Chloride 107 Carbon Dioxide 25.0 Anion Gap 7 BUN 14 Creatinine 0.89 Estim Creat Clear Calc 89.85 Est GFR (MDRD) Af Amer 93 Est GFR (MDRD) Non-Af 77 BUN/Creatinine Ratio 15.8 Glucose 82 Calcium 8.8 C-React Prot Ext Range < 2.90 - Medical Decision Making With history of elevated rheumatoid factor will obtain blood work for many metabolic infectious etiology i.e. CBC, BMP, ESR and CRP. With negative workup will have patient follow-up with her primary care physician since this has occurred in the past and etiology is unknown. ED Disposition - Plan for ED Patient: Disposition: Home or Assisted Living Diagnosis: Joint stiffness of left ankle and/or foot, Joint stiffness of elbow Instructions: ED Joint Pain Referrals: Rhett Elias MD [Primary Care Provider] - 1 Week
[2019-02-03 14:41] LABS: Absolute Lymphocyte Count 1.54 X10^3/ul (0.83-4.51); Absolute Neutrophil Count 4.9 X10^3/uL (2.0-7.7); Basophil# 0.02 X10^3/uL; Basophil% 0.3 % (0-1); Eosinophil# 0.06 X10^3/uL; Eosinophils% 0.9 % (0-5); Lymphocyte # 1.54 X10^3/ul (4.0); Lymphocyte % 22.3 % (19-41); Mean Corp Hgb Conc 35.1 g/gl (32-36); Mean Corpuscular Hgb 29.4 pg (27.0-32.0); Mean Corpuscular Volume 83.7 fL (81-99); Mean Platelet Vol. 8.5 fl (6.2-12.0); Monocyte% 5.8 % (0-10); Neutrophil # 4.87 X10^3/uL (2.7-7.7); Neutrophil % 70.6 % (47-70); Platelet Count 150 K/mm3 (150-450); RBC Distribution Width CV 13.1 % (11.6-14.6); RBC Distribution Width SD 39.2 fl (35.1-43.9); Red Blood Count 4.42 M/mm3 (4.2-5.4); White Blood Count 6.9 K/mm3 (4.4-11.0)
[2019-02-03 14:43] LABS: POSITIVE COUNT NO; POSITIVE DIFFERENTIAL NO; POSITIVE MORPHOLOGY NO
[2019-02-03 15:26] LABS: Erythrocyte Sedimentation Rate 4 mm/hr (0-20)
[2019-02-03 15:29] LABS: Anion Gap 7 (5-15); BUN 14 mg/dL (7-18); BUN/Creat Ratio 15.8 RATIO (10-20); CRP < 2.90 mg/L (0.0-3.0); Calcium,Total 8.8 mg/dL (8.5-10.1); Chloride 107 mmol/L (98-107); Creatinine, Serum 0.89 mg/dL (0.55-1.02); EST Glomerular Filtration Rate 77 mL/min (>60); Est Glom Filt Rate - Afr Amer 93 mL/min (>60); Estimated Creatinine Clearance 89.85 ml/min; Glucose 82 mg/dL (74-106); Potassium 3.9 mmol/L (3.5-5.1); Sodium Level 139 mmol/L (136-145)
[2019-02-03 15:39] VITALS: BP 148/92; PULSE 81; RESP 19; O2SAT 98
== END 2019-02-03 15:40 | disposition home or self-care (01) ==
PROVIDERS: Emergency Provider Emergency Medicine; Family Provider Family Medicine; PCP Family Medicine
DX: M25.672 Stiffness of left ankle, not elsewhere classified (principal); M25.675 Stiffness of left foot, not elsewhere classified; M25.622 Stiffness of left elbow, not elsewhere classified
CPT/HCPCS: 80048; 85025; 85652; 86140; 99285; A4216

== ENCOUNTER 2019-02-13 14:00 | Outpatient (RCR) | payer BC, SELFPAY ==
[2017-09-29 13:07] VITALS: BMI 36.4
--- NOTE | 2018-08-12 09:29 | HP.PTEVAL_ITS ---
Patient's Visit Information VARINDER LACEY is a 33 year old F referred to Physical Therapy by Jose Robertson with a diagnosis of Breast Cancer. Date of Evaluation: 08/12/18 Physical Therapist: Marian Jensen - Visit Plan Frequency: 3x /Week Duration: 6 Weeks Plan: Focus on gentle ROM and strength - Subjective Subjective: Diagnosed with breast cancer March 2017- April 06 2017 partial masectomy- July 2017 debridement- January 04 completion Masectomy- Jun [address] Gloria and Dr. Robertson were the surgeons. Possibly September or next year a revision- currently will not have reconstruction. Chemo in May- september 122016 was last day- May 23 of this year- radiation ended november 10. Still being monitored MD at hospital- today is last day of hyperbaric- incisions are closed. Currently the majority of the incision she has no feeling- has a small amount of breast tissue which is painful. Pain radiates into the left axillay. Has pain on the ribs and then down to the elbow. Skin Sensitivitiy- hypersensitive- Shoulder almost froze last fall. Worst: 5/10 Best: 0/10 Agg: laying on the left side, contact, kids headbutting her, reaching. Eases: removal of contact. Reports standard pain is more that she is more away and annoying. Jarring pains. Limitations of her life include- lowing dishes in her cabinet, sewing, lifting kids around, hug her . PMhx: breast cancer, hypothyroidism, asthma, sleep apnea, narcolepsy. Meds: synthroid, nubagil. Right hand dominate. MRI and x-rays recently scanned into computer. Sleep: disturbed- phantom limb and she can't fix it. Not use to sleeping on her right side and has for long periods of time. - Objective Posture: FH, RS, Increased guarding of the left UE. Gait: no deviation in LE but decreased arm swing on the left. Palpation: tender along scapula, upper trap to the tip of the acromion, down the bicipital groove- down into the axillay, pecs and down the triceps/biceps to the elbow- hypersensitive. ROM: Cervical: WNL Shoulder: Flexion: 140 degrees ABD: 110 degrees IR: equal ER: 60 degrees- all with increased pain/discomfort. Elbow: WNL. Strength: Shoulder: 4-/5 throughout with pain in available range. ELbow: 4/5, - Goals Goal 1:: Patient will be I with HEP and progression Goal Time Frame: 4-6 Weeks Goal 2:: Patient will demo full AROM of the left shoulder Goal Time Frame: 4-6 Weeks Goal 3:: Patient will demo 4+/5 strength in UE Goal Time Frame: 4-6 Weeks Goal 4:: Patient will maitain proper posture t/o tx session to demo increased scap s/s. Goal Time Frame: 4-6 Weeks - Rehabilitation Potential Physical Therapy Diagnosis: Patient presents with hypomobility- she has decreased ROM, strength and muscular endurance leading to poor ability to perform ADL's. Rehabilitation Potential: Good - Anticipated Interventions Patient/Client Instruction: Educate patient on: Benefits of Fitness Program Therapeutic Exercise to Include: Strength training, Agility training, Body mechanics, Postural training, Passive ROM, Active ROM, Scapular Strength/ Stabilization For the Purpose of:: To improve muscle performance and motor function Manual Therapy Techniques to Include: Passive ROM TENS: Yes Cryotherapy (ice pack, ice massage): Yes Thermo therapy (hot pack): Yes Ultrasound (thermal/non thermal): No Thank you for the opportunity to evaluate your patient. For Medicare and Medicare HMO plans, please review the plan of care and approve it. It will need to be FAXED BACK to us at [phone] for Medicare purposes. Please let me know if there are questions or concerns regarding this plan of care. Physician Signature: Date:
--- NOTE | 2018-09-13 14:35 | HP.PTREVAL ---
Jose Robertson, It has been my pleasure to treat VARINDER LACEY over the last 6 visits for Breast Cancer. Please see the progress note below for an update on the physical therapy plan of care! Subjective: Patient reports that she was able to maintain full ROM over the last week -she is back to all normal activites but the pain is bad at night. sees OT on for scar managment also plans to have another revision Sep 27 Objective/Function: Posture: good throughout. ROM: WNL in all planes of the cervical spine and shoulder. Strength: 5/5 throughout shoulder, elbow and wrist. Plan Plan: Hold- will have another surgery then follow up with PT as needed Goals Goal 1:: Patient will be I with HEP and progression Goal Time Frame: 4-6 Weeks Goal Progress: Goal Met Goal 2:: Patient will demo full AROM of the left shoulder Goal Time Frame: 4-6 Weeks Goal Progress: Goal Met Goal 3:: Patient will demo 4+/5 strength in UE Goal Time Frame: 4-6 Weeks Goal Progress: Goal Met Goal 4:: Patient will maitain proper posture t/o tx session to demo increased scap s/s. Goal Time Frame: 4-6 Weeks Goal Progress: Goal Met Anticipated Interventions Patient/Client Instruction: Educate patient on: Benefits of Fitness Program Therapeutic Exercise to Include: Strength training, Agility training, Body mechanics, Postural training, Passive ROM, Active ROM, Scapular Strength/Stabilization For the Purpose of:: To improve muscle performance and motor function Manual Therapy Techniques to Include: Passive ROM TENS: Yes Cryotherapy (ice pack, ice massage): Yes Thermo therapy (hot pack): Yes Ultrasound (thermal/non thermal): No Please do not hesitate to contact me at [phone] by phone or if you have questions or concerns regarding this new plan of care! Sincerely, Marian Jensen
--- NOTE | 2018-09-21 14:51 | HP.OTEVAL ---
Patient's Visit Information VARINDER LACEY is a 33 year old F, referred to Occupational Therapy by Jose Robertson, with a diagnosis of breast cancer. Date of Evaluation: 09/15/18 Occupational Therapist: GERALD Montoya/Shraddha, T - Subjective Subjective: Diagnosed with breast cancer March 2017- April 06 2017 partial masectomy- July 2017 debridement- January 04 completion Masectomy- Jun [address] Gloria and Dr. Robertson were the surgeons. Possibly September or next year a revision- currently will not have reconstruction. Chemo in May- september 122016 was last day- May 23 of this year- radiation ended november 10. Still being monitored MD at hospital- today is last day of hyperbaric- incisions are closed. Currently the majority of the incision she has no feeling- has a small amount of breast tissue which is painful. Pain radiates into the left axillay. Has pain on the ribs and then down to the elbow. Skin Sensitivitiy- hypersensitive. Pt completed PT for left shoulder ROM and posture. Pt states she has difficulty with energy levels. pt to have sx- of left side to remove further tissue. - Pain left scar 0 Pain Intensity Range: 0, 7 - Objective Objective/Observation: pt demo with left masectomy scar- incision is healed, but pt demo with hypersensitivity around incison about a two inc radius of incision. - Lymphedema (Circumferential Measure) MCP: right 20.5cm left 20.5cm Wrist: right 18cm left 17cm Lower forearm: right 20cm left 20cm Largest forearm: right 27cm left 26cm Elbow: right 28cm left 27cm Largest humerus: right 32cm left 32cm Axcillary: right 37cm left 37cm - Sensation Sensation Comments: around scar incisions - DASH-Disabilities of Arm, Shoulder& Hand DASH Sum: 68 - Goals Goal:: pt will report pain no greater than 1/10 when weaing clothing/bra for 6 hours or longer by d/c Goal:: pt will demo understanding of scar mtg/ desensitization landon. by end of 3rd session. Pt will demo increase carolyne. of scar mtg for greater than 45 min to increase pts carolyne. to wearing clothing/bra for greater than 6 hours by d/c - Rehabilitation General Assessment: PT demo with hypersensitive scar tissue following a left masectomy. This limits pts ability to tolerate showering, washing and bra use. Pt demo need for skilled OT services 1-2x week for 4 weeks to complete scar mtg and desensitzation to return pt to becoming ind. with Bathing/dressing etc. Rehabilitation Potential: Good - Anticipated Interventions Anticipated Interventions: A/AAROM/PROM, Scar Care, Desensitization, Education re Diagnosis, Home Program - Visit Plan Frequency: 1-2x /Week Duration: 4 Weeks TEXT: Thank you for the opportunity to evaluate your patient. For Medicare and Medicare HMO plans, please review the plan of care and approve it. It will need to be FAXED BACK to us at [phone] for Medicare purposes. Please let me know if there are questions or concerns regarding this plan of care. Physician Signature: Date:
--- NOTE | 2018-11-03 14:35 | HP.SP.AD_ITS ---
History - History Date of Eval: 11/01/18 Date of Onset of Diagnosis: august 2017 Previous speech therapy: No Other Relevant Medical History/Diagnoses/Surgery: STEVE, hypothyroidism, chronic back pain, narcolepsy, anxiety and depression, S/P lumpectomy with chemotherapy and radiation, disproportion reconstructed LT breast, intermittent epigastric ABD pain. Patient stated was diagnosed with Breast cancer March 2017. Patient had a partial mastectomy-April 06, 2017. Received debridement July 2017. Began Chemotherapy May 18, 2017 through September 06, 2017. October 13 2017- November 10 or 2017 received radiation everyday 5 days a week. January 04 2018, had LT breast reconstruction with excision painful infected lateral radiation lumpectomy scar contour deformity w/ completion Mastectomy. June 24, 2018 had a revision. July 12, 2018, had myringotomy tubes bilateral. September had final revision. And October 25 2018 had port removed. Patient stated she can?t remember if anything occurred /March of 2018. Smoking Status: Former smoker Hx Smoking: No Hx Tobacco Use: No Hx Smoking Exposure: Yes - Pain Is pain an issue with your current prescribed condition?: No Patient Allergies - Allergies Allergies hydromorphone [From Dilaudid] Allergy (Severe, Verified 11/03/18 14:15) Laryngospasms morphine Allergy (Severe, Verified 11/03/18 14:15) chest tightening TAPE Adverse Reaction (Mild, Uncoded 11/03/18 14:15) Other Other Impressions - Comments Patient interview -: Patient appeared anxious and at times became emotional when discussing the activities that she was having difficulty with. Patient does see a psychologist every 3-6 months. Patient stated she went off psychotic drugs right before she got diagnoses with breast cancer. Patient stated that she began noticing having cognitive problems in August 2017. 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 She stated that things are different and worse now. She stated that She can?t remember having conversations with people, but if a person comes up to her and ask her about a conversation they had previously and gives her a clue such as the location they were at, She is then able to remember the conversation. She stated that after each surgery she notices that her cognitive functions have declined as well as having periods of not eating well. Patient states that activities such as doing the budgeting, banking, making measurements and formulating a plan to build a piece of furniture for her to do she can not longer do. She stated she can make the measurements for the furniture but has difficulty taking those measurements and making the plan on how the pieces go together so that her is able to understand the directions. She gave an example that she found herself in the kitchen the other day and did not know why she was in the kitchen. Her came into the room and she stated she became emotional and stated to him she didn?t know why she was in the kitchen. She noticed the cat food bag and then realized she had come into the kitchen to feed the cat. Patient is also aware that she talks incessantly and does not have a verbal filter. She stated that she can?t control it. She stated that before she would be aware of other peoples body language and opinions but now when she has a conversation with someone and she disagrees, she has no filter and only realizes it if the person she is talking to points it out to her. Patient states she is also having difficulty with reading. She was an avid reader and now she just can?t read. It is hard for her to track the words and she can?t remember what she has read. She stated it is easier to track printed material on her phone because it?s a smaller screen. Even when reading to her children, she has to track the words with her finger otherwise she loses her place. She stated she now does keep a calendar but forgets to refer to it. She stated if ?it?s out of sight it?s out of mind?. She stated that she forgets to eat. Her will come home and ask her what she ate, and she realizes that she hasn?t eaten that day. She stated that she has difficulty remembering her medication. She stated ?September 26 was the last day I took medication?. Patient stated she finds herself starting to withdrawal from people and activities. She realizes that she does not have a verbal filter, and once she starts talking doesn?t realize when to end a conversation and cannot remember conversations that she has had. Plan - Plan Plan: Recommend speech therapy. Plan to complete cognitive testing. Patient?s goal is to get help in helping with her organizational skills to be able to complete activities that help to run the household. - Recommendations MBS: No Treatment Warranted: Yes - Frequency Frequency: 1x/Week Duration: 2-4 Months - Prognosis Prognosis: Good - Goals that are Established: Determination:: Goals will be added/modified as deemed necessary and appropriate. Therapy will be discontinued when results of re-evaluation indicate therapy is no longer needed or lack of progress has been documented. - Goal #1-5 Goal #1: To complete any needed cognitive testing in order to establish a treatment plan that will address the patient's cognitive deficits and allow her to complete tasks that will allow her to run her household in her daily living environment. Goal #2: Therapy is to focus on patient developing strategies to complete executive function skills which will include organization, scheduling sequencing and problem solving in order to complete tasks in her daily living environment. Education - Patient has Indicated that the Following Identified Educational Needs: None The Patient has indicated that they have no educational or learning abilities that may effect their care.: Yes - Patient Instruction Patient Education: Treatment Plan Person Taught: Patient Teaching Method: Discussion Response to teaching: Verbalize understanding
--- NOTE | 2018-12-29 07:42 | HP.OTREVAL ---
Jose Robertson MD, It has been my pleasure to treat VARINDER LACEY over the last 3 visits for breast cancer. Please see the progress note below for an update on the occupational therapy plan of care! Subjective: pt arrives- states she was had her reconstruction of her maastectomy- (removal of excessive tissue) following completion of radiation- pt has pain and hypersensitive areas around left chest wall and scar. pt states she did lose 70# during chemo/rad/and reconstructive sx. Objective/Function: pt demo with shoulders in guarded position- limited left shoulder ext. rotation. and weak scapula notes wing of left scapula- pt demo need for posture stretches, scapula strength, and scar desensitization to return pt to a functional carolyne. to perform ADLs. no edema noted by. left MCP 20cm, wrist 17cm, 20.5cm, lower forearm 20.5cm, forearm 25.5cm, elbow 25.5cm humerus 30.5cm axcillary 35cm- Plan Frequency: 1-2x /Week Duration: 4 Weeks Plan: pt demo with shoulders in guarded position- limited left shoulder ext. rotation. and weak scapula notes wing of left scapula- pt demo need for posture stretches, scapula strength, and scar desensitization to return pt to a functional carolyne. to perform ADLs. Goals - Goals Goal:: pt will report pain no greater than 1/10 when weaing clothing/bra for 6 hours or longer by d/c Goal:: pt will demo understanding of scar mtg/ desensitization landon. by end of 3rd session. Pt will demo increase carolyne. of scar mtg for greater than 45 min to increase pts carolyne. to wearing clothing/bra for greater than 6 hours by d/c Anticipated Interventions Anticipated Interventions: A/AAROM/PROM, Scar Care, Desensitization, Education re Diagnosis, Home Program Please do not hesitate to contact me at [phone] by phone or if you have questions or concerns regarding this new plan of care! Sincerely, Randi Granger, OTR/L, CHT
--- NOTE | 2019-02-13 15:11 | HP.PTEVAL ---
Patient's Visit Information VARINDER LACEY is a 33 year old F referred to Physical Therapy by Jose Robertson MD with a diagnosis of CERVICALGIA. Date of Evaluation: 02/13/19 Physical Therapist: Joy Esqueda PT, Cert MDT - Visit Plan Frequency: 2-3x /Week Duration: 4-6 Weeks Plan: POSTURE CORRECTION/STRENGTHENING, INSTRUCTION IN APPROPRIATE BODY MECHANICS AND ACTIVITY MODIFICATIONS. RADHA UE ROM, STRETCHING AND STRENGTHENING. HEP INSTRUCTION. - Subjective Findings: Diagnosis: CERVICALGIA. 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 AGES 5, 4 AND 3. Disability: NO. Present symptoms: INTERMITTENT RADHA NECK PAIN AND STIFFNESS. THE PAIN GOES FROM NECK INTO SHOULDER AND CONSTANT PAIN IN LEFT SHOULDER BLADE. INTERMITTENT LEFT UE PAIN PAIN, NUMBNESS AND TINGLING TO FINGERS. ALL FINGERS AT TIME. WHOLE HAND GETS NUMB. TINGLING IS MAINLY DIGITS 4 AND 5. PATIENT ALSO HAS UPPER BACK PAIN THAT SHE STATES IS IN THE SPINE AT AND EVEN A LITTLE BELOW HER SHOULDER BLADES. MY UPPER BACK IS A MESS. Present since: AGE 9. Pain Scale: Worst - 7/10 Least - /10. Currently: -11/27. 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 ABOUT AGE 9 BRUISED SPINAL COLUMN ABOUT AGE 9 FROM SLEDDING ACCIDENT. Symptoms at onset: NECK. Worse: BENDING, LIFTING, DOING OT, SITTING, WASHING DISHES IT REALLY STARTS TO FLARE UP, AND PLAYING WITH KIDS. Better: CRACKING NECK. Disturbed sleep: YES. Previous history/Previous treatment: SLEDDING ACCIDENT AGE 9, 3 MASECTOMY SURGERIES LEFT, CHIROPRACTOR SINCE AGE 11 OFF AND ON - LAST CHIROPRACTIC VISIT WAS LAST WEDNESDAY - HELPFUL. PHYSICAL THERAPY SEVERAL TIMES INCLUDING PT AT [facility] AND HERE AT [facility]. FOR CERVICAL DDD ABOUT 3 YEARS AGO - TYPICALLY NOT HELPFUL BUT SOMETIMES PAINFUL. PT DID HELP ROM LEFT SHOULDER IN PAST. NO NECK OR UPPER BACK SURGERY. NO SHOULDER SURGERY. NO NECK OR SHOULDER INJECTIONS. DOES NOT WANT INJECTIONS. Dizziness: NO. Tinnitis: YES - HAS EAR TUBES. HAS AN ENT GINA'T FOR THEM TODAY. Nausea: NO. Shortness of Breath: NO. Difficulty Swollowing: NO. Gait: NORMAL - INTERMITTENT SCIATICA THOUGH. Accidents: SEE ABOVE. NO OTHERS. Unexplained weight loss: NO. Imaging: NO RECENT NECK X-RAYS. PMH/Recent major surgery: SLEEP APNEA, NARCALEPSY WITH CATAPLEXY, LUMBAR PROBLEMS, DIAGNOSED WITH BREAST CANCE MARCH 2017 WITH CHEMO, RADIATION AND MASECTOMY TREATMENT. - Objective Sitting Posture/Standing Posture: POOR. FORWARD HEAD, ROUNDED SHOULDERS. VERY SLOUCHED IN LOW BACK. Active Correction of posture: NE. Other Observations: PATIENT RANDOMLY TRIES TO CRACK NECK DURING SESSION. Motor deficit: RIGHT UE STRENGTH 5/5 EXCEPT SHOULDER GRADED 4/5. LEFT SHOULDER 4-/5, ELBOW 4/5, WRIST AND HAND 4/5. Sensory deficit: ALTERED SENSATION ENTIRE LEFT UE COMPARED TO RIGHT WITH LIGHT TOUCH TESTING TODAY. ROM deficit: RIGHT SHOULDER 10% LIMITED AND LEFT SHOULDER GROSSLY 20% LIMITED. Dural Signs: POSITIVE LEFT UE. Cervical Mvmt Loss: Flex: MIN. Pro: NIL. Ext: MOD. Ret: MOD. RSB: MIN. LSB: MIN. R Rot: MIN. L Rot: MOD. Postural strength: POOR. Palpation: TENDERNESS WITH PALPATION OF MID THORACIC SPINE, MEDIAL INFERIOR BOARDER OF LEFT SCAPULAE, C567 REGION AND LEFT UPPER TRAP WELL RADHA POSTERIOR CERVICAL MUSCULATURE. - Goals Goal 1:: DECREASE C/O UPPER BACK, NECK AND LEFT UE SX'S. Goal Time Frame: 4-6 Weeks Goal 2:: IMPROVE SITTING,LIFTING, REACHING, PUSHING, PULLING, READING, LOOKING DOWN TO DO OTHER THINGS TOO LIKE WASHING DISHES, PLAYING WITH KIDS AND SLEEP FUNCTION. Goal Time Frame: 4-6 Weeks Goal 3:: INSTRUCT IN PROPHYLAXIS. Goal Time Frame: 4-6 Weeks Goal 4:: Patient will maitain proper posture t/o tx session to demo increased scap s/s. Goal Time Frame: 4-6 Weeks - Rehabilitation Potential Physical Therapy Diagnosis: Patient presents with hypomobility- she has decreased ROM, strength and muscular endurance leading to poor ability to perform ADL's. Rehabilitation Potential: Fair - Anticipated Interventions Patient/Client Instruction: Educate patient on: Condition, Plan of Care, Risk Factors, Benefits of Fitness Program For the Purpose of:: To improve self management Therapeutic Exercise to Include: Strength training, Body mechanics, Postural training, Flexibilty training, Active ROM, Scapular Strength/Stabilization For the Purpose of:: To decrease pain, To improve muscle performance and motor function, To increase tolerance to activity/condition/position, To improve ability of physical actions for home/community/work/leisure Manual Therapy Techniques to Include: Passive ROM TENS: Yes Cryotherapy (ice pack, ice massage): Yes Thermo therapy (hot pack): Yes Ultrasound (thermal/non thermal): No Thank you for the opportunity to evaluate your patient. For Medicare and Medicare HMO plans, please review the plan of care and approve it. It will need to be FAXED BACK to us at [phone] for Medicare purposes. For Medicare only, by signing this I certify the plan of care. Please let me know if there are questions or concerns regarding this plan of care. Physician Signature: Date:
== END 2019-02-13 19:00 | disposition home or self-care (01) ==
LOC: PT 14:00
PROVIDERS: Family Provider Family Medicine; PCP Family Medicine; Referring Provider Surgery; Visit Provider Surgery
DX: M25.612 Stiffness of left shoulder, not elsewhere classified (principal); M79.622 Pain in left upper arm; T66.XXXS Radiation sickness, unspecified, sequela; C50.912 Malignant neoplasm of unspecified site of left female breast
CPT/HCPCS: 92507; 92523; 97110; 97140; 97162; 97164; 97166; 97530

== ENCOUNTER 2019-02-17 08:40 | Emergency (ER) | payer BC, SELFPAY ==
[2018-09-12 11:43] VITALS: BMI 36.4
[2019-02-17 08:25] VITALS: BMI 30.7
[2019-02-17 08:42] VITALS: BP 132/84; PULSE 88; RESP 18; TEMP 36.9; O2SAT 98; BMI 30.4
--- NOTE | 2019-02-17 08:55 | CT_ITS ---
STUDY: CT ABDOMEN AND PELVIS WITH CONTRAST REASON FOR EXAM: Female, 33 years old. Abdominal pain RADIATION DOSAGE (If Supplied By Facility): CTDIvol = ( 15.05 ) mGy, DLP = ( 1081.59 ) mGycm TECHNIQUE: Transaxial images were obtained from the dome of the diaphragm to the symphysis pubis with oral contrast. 100 IV/Oral Isovue 300 was administered. Sagittal and coronal images were reconstructed. Individualized dose optimization techniques were used for this CT. COMPARISON: None. FINDINGS: The visualized lung bases are unremarkable. The visualized portions of the heart are within normal limits. Normal liver. Normal gallbladder and extrahepatic biliary system. Normal spleen. Normal pancreas. Normal bilateral adrenal glands. Normal right kidney. Normal left kidney. Normal visualized stomach. Normal small intestine. Normal colon. Appendix is not clearly visualized. No secondary signs of acute appendicitis. Normal abdominal aorta. Normal inferior vena cava. Normal retroperitoneum. Normal urinary bladder. Normal visualized uterus. Normal abdominal wall. Normal osseous structures. CT/Abdomen/Pelvis WITH Contrast IMPRESSION: No acute findings. Appendix is not clearly visualized however, no secondary signs of acute appendicitis. No concerning pelvic free fluid. Electronically Signed: Arnaldo Sandhu DO at 11:08 EDT Tel , Service support ,
--- NOTE | 2019-02-17 09:01 | ED.VISSUMM ---
- ER Visit Summary Date of Service: 02/17/19 Chief Complaint: Abdominal pain History of Present Illness: The patient is a 33 F who presents with abdominal pain. This began this morning when she woke up. She complains of severe sharp epigastric abdominal pain which she currently rates as 6-7 out of 10. She complains of associated nausea without vomiting. No diarrhea. No constipation. She states her stool is slightly soft but not tessie diarrhea. She was initially seen at the urgent care and then advised to be evaluated here in the emergency department. She denies any history of abdominal surgeries. No fevers. She otherwise denies recent illness. She does have a history of breast cancer which she underwent chemotherapy and radiation as well as mastectomy form but is not currently undergoing any treatment and states hopefully that she is now done with treatment. Physical Examination: Afebrile vitals normal Patient appears uncomfortable Moist mucous membranes Heart regular rate and rhythm Lungs clear Abdomen soft nondistended she does have diffuse abdominal tenderness although this is greatest across the upper abdomen. She does not have guarding or rebound. Test Results: CBC CMP lipase unremarkable. CT of the abdomen and pelvis shows no acute findings. Emergency Department Course and Treatment: Patient was treated with IV fluids Toradol and Zofran. On reevaluation she feels much better. She is resting comfortably reading a book. She was advised of the above findings. She does not have evidence of any surgical pathology at this time. She was advised to start a medication such as Prilosec as this may be from gastritis given her pain is worse in the epigastric region. She does understand to return for new or worsening symptoms and was instructed on signs and symptoms to monitor for and was discharged home. Treatment Plan: [] Disposition: Discharge Impression: Abdominal pain This note was generated with [employer] dictation software. It may contain incorrect words, spelling, and punctuation that were not noted in review of the chart prior to signing ED Disposition - Plan for ED Patient: Referrals: Rhett Elias MD [Primary Care Provider] -
[2019-02-17 09:35] LABS: Absolute Lymphocyte Count 0.82 X10^3/ul (0.83-4.51); Absolute Neutrophil Count 2.6 X10^3/uL (2.0-7.7); Basophil# 0.01 X10^3/uL; Basophil% 0.3 % (0-1); Eosinophil# 0.06 X10^3/uL; Eosinophils% 1.6 % (0-5); Hematocrit 38.9 % (37-47); Hemoglobin 13.3 g/dl (12.0-15.0); Lymphocyte # 0.82 X10^3/ul (4.0); Lymphocyte % 21.5 % (19-41); Mean Corp Hgb Conc 34.2 g/gl (32-36); Mean Corpuscular Hgb 29.1 pg (27.0-32.0); Mean Corpuscular Volume 85.1 fL (81-99); Mean Platelet Vol. 8.3 fl (6.2-12.0); Monocyte# 0.29 X10^3/uL; Monocyte% 7.6 % (0-10); Neutrophil # 2.63 X10^3/uL (2.7-7.7); Platelet Count 122 K/mm3 (150-450); RBC Distribution Width CV 12.9 % (11.6-14.6); RBC Distribution Width SD 39.9 fl (35.1-43.9); Red Blood Count 4.57 M/mm3 (4.2-5.4); White Blood Count 3.8 K/mm3 (4.4-11.0)
[2019-02-17 09:38] LABS: POSITIVE COUNT NO; POSITIVE DIFFERENTIAL NO; POSITIVE MORPHOLOGY NO
[2019-02-17] MEDS: Ketorolac 30 MG/ML Syringe IV (09:43)
[2019-02-17] MEDS: Ondansetron 4 MG/2 ML Vial IV (09:43)
[2019-02-17] MEDS: 0.9% Normal Saline 1,000 ML 1000 ML IV (09:43)
[2019-02-17 09:50] LABS: ALB/GLOB Ratio 1.2 RATIO (0.9-2.4); AST(SGOT) 21 U/L (15-37); Alanine Aminotransfer ALT/SGPT 35 U/L (13-56); Albumin, Serum 4.2 g/dL (3.2-5.0); Alkaline Phosphatase 103 U/L (45-117); Anion Gap 6 (5-15); BUN 14 mg/dL (7-18); BUN/Creat Ratio 15.9 RATIO (10-20); Calcium,Total 8.9 mg/dL (8.5-10.1); Chloride 108 mmol/L (98-107); Creatinine, Serum 0.88 mg/dL (0.55-1.02); EST Glomerular Filtration Rate 78 mL/min (>60); Est Glom Filt Rate - Afr Amer 94 mL/min (>60); Estimated Creatinine Clearance 90.87 ml/min; Globulin 3.4 g/dL (2.2-4.2); Glucose 92 mg/dL (74-106); Lipase 110 U/L (73-393); Protein, Total 7.6 g/dL (6.4-8.2); Sodium Level 141 mmol/L (136-145)
[2019-02-17 11:05] VITALS: BP 124/77; PULSE 62; RESP 15; O2SAT 98
--- NOTE | 2019-02-17 11:19 | ED.DEP ---
ED Disposition - Plan for ED Patient: Instructions: ED Abdominal Pain Unkn Cause Referrals: Rhett Elias MD [Primary Care Provider] -
[2019-02-17 11:24] VITALS: BP 135/74; PULSE 61; RESP 15; O2SAT 98
== END 2019-02-17 11:28 | disposition home or self-care (01) ==
LOC: ED 09:31
PROVIDERS: Emergency Provider Emergency Medicine; Family Provider Family Medicine; PCP Family Medicine
DX: R10.13 Epigastric pain (principal); R11.0 Nausea; G47.419 Narcolepsy without cataplexy; Z85.3 Personal history of malignant neoplasm of breast; Z92.21 Personal history of antineoplastic chemotherapy; Z92.3 Personal history of irradiation; Z90.10 Acquired absence of unspecified breast and nipple
CPT/HCPCS: 74177; 80053; 83690; 85025; 96361; 96374; 96375; 99283; J7030; Q9967; A4216; J2405

== ENCOUNTER 2019-03-24 14:00 | Outpatient (RCR) | payer BC, SELFPAY ==
[2018-09-12 11:43] VITALS: BMI 36.4
--- NOTE | 2019-03-28 13:11 | HP.PT.NRP ---
HP - Discharge Summary (1) - Patient Information VARINDER LACEY was seen in my office for initial evaluation on . The following Plan of Care was established for this patient: This patient was last seen in our office 03/24/19. Pertinent comments regarding their Physical therapy will appear below: THIS PATIENT HAS MISSED A LOT OF GINA'TS DURING THIS EPISODE OF CARE WITH PT BUT SHE ATTENDED A SESSION March AND WAS DOING MUCH BETTER. I PROGRESSED HER HEP AND SHE CANCELLED HER GINA'T TODAY STATING SHE IS DOING GOOD. I AM GOING TO GO AHEAD AND DISCHARGE HER CHART AT THIS TIME. At this point I will be discontinuing this patient from physical therapy. I would be happy to see this patient again in the future if found appropriate by the physician. Thank you! Joy Esqueda, PT, Cert MDT
== END 2019-03-24 19:00 | disposition home or self-care (01) ==
LOC: PT 14:00
PROVIDERS: Family Provider Family Medicine; PCP Family Medicine; Referring Provider Surgery; Visit Provider Surgery
DX: M54.2 Cervicalgia (principal); M25.612 Stiffness of left shoulder, not elsewhere classified; M79.622 Pain in left upper arm; T66.XXXS Radiation sickness, unspecified, sequela; C50.912 Malignant neoplasm of unspecified site of left female breast
CPT/HCPCS: 97530

== ENCOUNTER → 2019-12-05 16:43 | Outpatient (CLI) | payer BC, SELFPAY ==
[2018-09-12 11:43] VITALS: BMI 36.4
[2019-06-08 14:40] VITALS: BMI 26.9
--- NOTE | 2019-12-05 16:54 | BI_ITS ---
MAMMOGRAPHY - UNILATERAL SCREENING: RIGHT BREAST REASON FOR EXAM: Female, 34 years old. Routine annual screening examination (unilateral). PERTINENT HISTORY: Personal history of breast cancer. Prior left mastectomy. TECHNIQUE: Digital unilateral breast yahaira (3D mammographic acquisition) in the CC and MLO projections. 2-D mediolateral oblique (MLO) and craniocaudad (CC) views of both breasts were obtained. CAD: Full Field Digital Mammography with Computer Added Detection was performed. COMPARISON: Comparison is made with prior examination dated July 04, 2018. FINDINGS: Breast Composition: The breasts are heterogeneously dense, which may obscure small masses. There are no dominant masses or suspicious calcifications. No other significant abnormalities are identified. There has been no significant change since the prior study. BI/SCREEN MAMM (CAD) W/YAHAIRA UNI R IMPRESSION: Stable unilateral screening mammogram. Yearly follow-up mammogram recommended. (A) ASSESSMENT CATEGORY: BIRADS Category 1: Negative. A letter regarding these results will be sent to the patient by the facility within 30 days. Approximately 10% of breast cancers are not detected by mammography. A normal mammogram should not delay biopsy of a clinically suspicious abnormality. [id number] Electronically Signed: Lupillo Samuel, at 8:31 EST , Service support ,
== END ==
PROVIDERS: PCP Family Medicine; Referring Provider Internal Medicine Medical Oncology; Visit Provider Internal Medicine Medical Oncology
DX: Z12.31 Encounter for screening mammogram for malignant neoplasm of breast (principal); Z85.3 Personal history of malignant neoplasm of breast; Z90.12 Acquired absence of left breast and nipple
CPT/HCPCS: 77063; 77067